=== PATIENT | female | born 1935 | race Caucasian/White ===

== ENCOUNTER → 2017-08-09 10:41 | Outpatient (CLI) | payer MEDICARE, SELFPAY ==
[2017-08-09 11:35] LABS: Vitamin B12 851 pg/mL (211-911)
[2017-08-09 11:37] LABS: Absolute Lymphocyte Count 1.16 X10^3/ul (0.83-4.51); Absolute Neutrophil Count 6.2 X10^3/uL (2.0-7.7); Basophil# 0.03 X10^3/uL; Basophil% 0.3 % (0-1); Eosinophil# 0.18 X10^3/uL; Hemoglobin 13.1 g/dl (12.0-15.0); Lymphocyte # 1.16 X10^3/ul (4.0); Mean Corp Hgb Conc 29.8 g/gl (32-36); Mean Corpuscular Hgb 28.1 pg (27.0-32.0); Mean Corpuscular Volume 94.4 fL (81-99); Mean Platelet Vol. 10.3 fl (6.2-12.0); Monocyte# 1.33 X10^3/uL; Monocyte% 14.9 % (0-10); Neutrophil # 6.23 X10^3/uL (2.7-7.7); Neutrophil % 69.6 % (47-70); POSITIVE COUNT NO; POSITIVE DIFFERENTIAL NO; POSITIVE MORPHOLOGY NO; Platelet Count 231 K/mm3 (150-450); RBC Distribution Width CV 13.3 % (11.6-14.6); RBC Distribution Width SD 45.9 fl (35.1-43.9); Red Blood Count 4.66 M/mm3 (4.2-5.4)
== END ==
PROVIDERS: Family Provider Internal Medicine; PCP Internal Medicine; Visit Provider Internal Medicine
DX: D51.8 Other vitamin B12 deficiency anemias (principal)
CPT/HCPCS: 82607; 85025

== ENCOUNTER → 2017-10-06 10:36 | Outpatient (CLI) | payer MEDICARE, SELFPAY ==
[2017-10-06 10:49] LABS: Absolute Lymphocyte Count 0.88 X10^3/ul (0.83-4.51); Absolute Neutrophil Count 5.6 X10^3/uL (2.0-7.7); Basophil# 0.02 X10^3/uL; Basophil% 0.3 % (0-1); Eosinophil# 0.13 X10^3/uL; Eosinophils% 1.8 % (0-5); Hematocrit 40.2 % (37-47); Hemoglobin 12.2 g/dl (12.0-15.0); Lymphocyte # 0.88 X10^3/ul (4.0); Lymphocyte % 11.9 % (19-41); Mean Corp Hgb Conc 30.3 g/gl (32-36); Mean Corpuscular Hgb 28.4 pg (27.0-32.0); Mean Corpuscular Volume 93.5 fL (81-99); Mean Platelet Vol. 10.2 fl (6.2-12.0); Monocyte% 10.8 % (0-10); Neutrophil # 5.56 X10^3/uL (2.7-7.7); Neutrophil % 74.8 % (47-70); Platelet Count 249 K/mm3 (150-450); RBC Distribution Width CV 13.3 % (11.6-14.6); RBC Distribution Width SD 45.4 fl (35.1-43.9); White Blood Count 7.4 K/mm3 (4.4-11.0)
[2017-10-06 11:14] LABS: POSITIVE COUNT NO; POSITIVE DIFFERENTIAL NO; POSITIVE MORPHOLOGY NO
[2017-10-06 11:20] LABS: ALB/GLOB Ratio 0.9 RATIO (0.9-2.4); AST(SGOT) 30 U/L (15-37); Alanine Aminotransfer ALT/SGPT 24 U/L (13-56); Albumin, Serum 3.3 g/dL (3.2-5.0); Alkaline Phosphatase 69 U/L (45-117); Anion Gap 3 (5-15); BUN 17 mg/dL (7-18); BUN/Creat Ratio 22.5 RATIO (10-20); Calcium,Total 8.8 mg/dL (8.5-10.1); Chloride 92 mmol/L (98-107); Creatinine, Serum 0.75 mg/dL (0.55-1.02); EST Glomerular Filtration Rate 78 mL/min (>60); Est Glom Filt Rate - Afr Amer 95 mL/min (>60); Ferritin 277 ng/mL (8-252); Globulin 3.6 g/dL (2.2-4.2); Glucose 110 mg/dL (74-106); Iron 61 ug/dL (50-170); Iron Binding Capacity,Total 323 ug/dL (250-450); PERCENT IRON SATURATION 18.9 % (15.0-55.0); Potassium 3.3 mmol/L (3.5-5.1); Protein, Total 6.9 g/dL (6.4-8.2); Sodium Level 137 mmol/L (136-145)
== END ==
PROVIDERS: Visit Provider Internal Medicine Medical Oncology
DX: D46.9 Myelodysplastic syndrome, unspecified (principal); D53.9 Nutritional anemia, unspecified
CPT/HCPCS: 80053; 82728; 83540; 83550; 85025

== ENCOUNTER → 2017-10-25 11:43 | Outpatient (CLI) | payer MEDICARE, SELFPAY ==
[2017-10-25 12:46] LABS: Mucous, Urine 0 SEEN /hpf (<or=2+); Red Blood Cells-Urine 0 SEEN /hpf (0-5)
[2017-10-25 12:58] LABS: Absolute Lymphocyte Count 1.19 X10^3/ul (0.83-4.51); Basophil# 0.04 X10^3/uL; Basophil% 0.4 % (0-1); Eosinophil# 0.13 X10^3/uL; Eosinophils% 1.4 % (0-5); Hematocrit 44.2 % (37-47); Hemoglobin 13.3 g/dl (12.0-15.0); Lymphocyte # 1.19 X10^3/ul (4.0); Lymphocyte % 12.4 % (19-41); Mean Corp Hgb Conc 30.1 g/gl (32-36); Mean Corpuscular Hgb 28.9 pg (27.0-32.0); Mean Corpuscular Volume 96.1 fL (81-99); Mean Platelet Vol. 10.8 fl (6.2-12.0); Monocyte# 1.22 X10^3/uL; Monocyte% 12.7 % (0-10); Neutrophil # 6.98 X10^3/uL (2.7-7.7); Neutrophil % 72.5 % (47-70); POSITIVE COUNT NO; POSITIVE DIFFERENTIAL NO; POSITIVE MORPHOLOGY NO; Platelet Count 229 K/mm3 (150-450); RBC Distribution Width CV 13.3 % (11.6-14.6); RBC Distribution Width SD 45.6 fl (35.1-43.9); White Blood Count 9.6 K/mm3 (4.4-11.0)
[2017-10-25 13:06] LABS: Color, Urine Yellow (Yellow); Glucose, Dipstick Normal (Normal); Ketone-Dipstick Negative (Negative); Leukocyte Esterase-Dipstick 25 /ul (Negative); Nitrite-Dipstick Negative (Negative); Occult Blood-Urine Negative /ul (Negative); Protein-Dipstick Negative (Negative); Specific Gravity, Urine 1.015 (1.002-1.030); Urine Bilirubin Dipstick Negative (Negative); Urine Clarity Clear (Clear); Urine Urobilinogen Normal (Normal)
[2017-10-25 13:19] LABS: Microalbumin,Random Urine 27.3 mg/L (NO RANGE EST.); Microalbumin:Creatinine Ratio 38.8 mg/g CRE (<30 mg/g CRE); Vitamin B12 627 pg/mL (211-911)
[2017-10-25 13:20] LABS: AST(SGOT) 30 U/L (15-37); Alanine Aminotransfer ALT/SGPT 25 U/L (13-56); Albumin, Serum 3.5 g/dL (3.2-5.0); Alkaline Phosphatase 68 U/L (45-117); Anion Gap 5 (5-15); BUN 20 mg/dL (7-18); BUN/Creat Ratio 26.5 RATIO (10-20); Calcium,Total 8.9 mg/dL (8.5-10.1); Chloride 90 mmol/L (98-107); Cholesterol 145 mg/dL (200); Creatinine, Serum 0.76 mg/dL (0.55-1.02); EST Glomerular Filtration Rate 78 mL/min (>60); Est Glom Filt Rate - Afr Amer 95 mL/min (>60); Globulin 3.6 g/dL (2.2-4.2); Glucose 88 mg/dL (74-106); High Density Lipoprotein 72 mg/dL; Potassium 3.2 mmol/L (3.5-5.1); Protein, Total 7.1 g/dL (6.4-8.2); Sodium Level 138 mmol/L (136-145); Thyroid Stim Hormone (TSH) 2.95 uIU/mL (0.358-3.74); Triglycerides 60 mg/dL; Very Low Density Lipoprotein 12 mg/dL (5-40)
[2017-10-25 13:24] LABS: Bacteria 1+ /hpf (None Seen); Hyaline Cast 0-5 SEEN /lpf (0-5); Squamous Epithelial Cells - UA 0-5 SEEN /hpf (5-10); White Blood Cells 0-5 SEEN /hpf (0-5)
== END ==
PROVIDERS: Family Provider Internal Medicine; PCP Internal Medicine; Visit Provider Internal Medicine
DX: D51.8 Other vitamin B12 deficiency anemias (principal); E55.9 Vitamin D deficiency, unspecified; E78.00 Pure hypercholesterolemia, unspecified; R00.1 Bradycardia, unspecified; I12.9 Hypertensive chronic kidney disease with stage 1 through stage 4 chronic kidney disease, or unspecified chronic kidney disease; N18.9 Chronic kidney disease, unspecified
CPT/HCPCS: 80053; 80061; 81001; 82043; 82570; 82607; 84443; 85025

== ENCOUNTER → 2018-01-03 09:45 | Outpatient (CLI) | payer MEDICARE, SELFPAY ==
[2018-01-03 10:55] LABS: Absolute Lymphocyte Count 0.86 X10^3/ul (0.83-4.51); Basophil# 0.03 X10^3/uL; Basophil% 0.4 % (0-1); Eosinophil# 0.13 X10^3/uL; Eosinophils% 1.6 % (0-5); Hematocrit 44.3 % (37-47); Hemoglobin 13.1 g/dl (12.0-15.0); Lymphocyte # 0.86 X10^3/ul (4.0); Lymphocyte % 10.8 % (19-41); Mean Corp Hgb Conc 29.6 g/gl (32-36); Mean Corpuscular Hgb 28.7 pg (27.0-32.0); Mean Corpuscular Volume 96.9 fL (81-99); Mean Platelet Vol. 10.6 fl (6.2-12.0); Monocyte% 11.3 % (0-10); Neutrophil # 6.04 X10^3/uL (2.7-7.7); Neutrophil % 75.8 % (47-70); Platelet Count 222 K/mm3 (150-450); RBC Distribution Width CV 13.2 % (11.6-14.6); RBC Distribution Width SD 46.8 fl (35.1-43.9); Red Blood Count 4.57 M/mm3 (4.2-5.4)
[2018-01-03 11:03] LABS: POSITIVE COUNT NO; POSITIVE DIFFERENTIAL NO; POSITIVE MORPHOLOGY NO
[2018-01-03 11:06] LABS: ALB/GLOB Ratio 0.9 RATIO (0.9-2.4); AST(SGOT) 28 U/L (15-37); Alanine Aminotransfer ALT/SGPT 21 U/L (13-56); Albumin, Serum 3.4 g/dL (3.2-5.0); Alkaline Phosphatase 74 U/L (45-117); Anion Gap 6 (5-15); BUN 25 mg/dL (7-18); BUN/Creat Ratio 34.2 RATIO (10-20); Calcium,Total 9.2 mg/dL (8.5-10.1); Chloride 92 mmol/L (98-107); Creatinine, Serum 0.73 mg/dL (0.55-1.02); EST Glomerular Filtration Rate 81 mL/min (>60); Est Glom Filt Rate - Afr Amer 98 mL/min (>60); Ferritin 261 ng/mL (8-252); Globulin 3.9 g/dL (2.2-4.2); Glucose 136 mg/dL (74-106); Iron 63 ug/dL (50-170); Iron Binding Capacity,Total 329 ug/dL (250-450); PERCENT IRON SATURATION 19.1 % (15.0-55.0); Potassium 3.2 mmol/L (3.5-5.1); Protein, Total 7.3 g/dL (6.4-8.2); Sodium Level 140 mmol/L (136-145)
== END ==
PROVIDERS: Family Provider Internal Medicine; PCP Internal Medicine; Visit Provider Internal Medicine Medical Oncology
DX: D46.9 Myelodysplastic syndrome, unspecified (principal); D50.9 Iron deficiency anemia, unspecified
CPT/HCPCS: 80053; 82728; 83540; 83550; 85025

== ENCOUNTER → 2018-01-11 12:43 | Outpatient (CLI) | payer MEDICARE, SELFPAY ==
[2018-01-11 12:45] VITALS: PULSE 63; PULSE 67; PULSE 68; PULSE 72; PULSE 94; O2SAT 4; O2SAT 83; O2SAT 87; O2SAT 89; O2SAT 93; O2SAT 96
--- NOTE | 2018-01-11 13:26 | CPS ---
Pt on 3.5L NC at home, DME is [facility]. Pt trying to get switched to [facility] to be able to do a portable concentrator. Pt currently on pulse dose, recommended pt to be on continuous flow of Oxygen while exerting herself as pt gets short of breath and desat's.
--- NOTE | 2018-01-12 08:12 | WT_ITS ---
PSN 6 Minute Walk Test - 6 Minute Walk Test 6 Minute Walk Test: 6 Minute Walk Test PSN:6-Minute Walk Test Start: 01/11/18 13: 24 Freq: Status: Active Protocol: [id number] Document 01/11/18 12:45 HG (Rec: 01/11/18 13:29 HG [id number]) 6 Minute Walk Test Date Performed 01/11/18 Time Performed 12:45 Height 5 ft 2 in Weight: 56.245 kg Weight in Pounds 124.[address]: Aida Lindo Assistive device used: Walker Pre-test Oxygen Delivery Method Room Air Pulse Ox (%) 87 Pulse Rate (60-100 beats/min) 63 Dyspnea Kelsey Scale (0-10) 3 Exertion Kelsey Scale (6-20) 14 1st minute Oxygen Flow Rate (L/min) (L/min) 2 Oxygen Delivery Method Nasal Cannula Pulse Ox (%) 87 Pulse Rate (60-100 beats/min) 67 2nd minute Oxygen Flow Rate (L/min) (L/min) 3 Oxygen Delivery Method Nasal Cannula Pulse Ox (%) 89 Pulse Rate (60-100 beats/min) 72 Number of Rests Taken 1 Reported Symptoms Increased Work of Breathing 3rd minute Oxygen Flow Rate (L/min) (L/min) 3 Oxygen Delivery Method Nasal Cannula Pulse Ox (%) 89 Pulse Rate (60-100 beats/min) 67 Number of Rests Taken 1 Reported Symptoms Increased Work of Breathing 4th minute Oxygen Flow Rate (L/min) (L/min) 3 Oxygen Delivery Method Nasal Cannula Pulse Ox (%) 83 Pulse Rate (60-100 beats/min) 72 Number of Rests Taken 1 Reported Symptoms Increased Work of Breathing 5th minute Oxygen Flow Rate (L/min) (L/min) 4 Oxygen Delivery Method Nasal Cannula Pulse Ox (%) 93 Pulse Rate (60-100 beats/min) 68 6th minute Oxygen Delivery Method Nasal Cannula Pulse Ox (%) 4 Pulse Rate (60-100 beats/min) 94 Dyspnea Kelsey Scale (0-10) 73 Post-test Oxygen Flow Rate (L/min) (L/min) 4 Oxygen Delivery Method Nasal Cannula Pulse Ox (%) 96 Pulse Rate (60-100 beats/min) 68 Dyspnea Kelsey Scale (0-10) 5 Exertion Kelsey Scale (6-20) 16 Full Laps Walked 4 Partial Lap, Number of Tiles Walked 0 Total Distance Walked (ft) 236 01/11/18 13:26 Cardiopulmonary Services by Zhanna Forbes Pt on 3.5L NC at home, DME is [facility]. Pt trying to get switched to [facility] to be able to do a portable concentrator. Pt currently on pulse dose, recommended pt to be on continuous flow of Oxygen while exerting herself as pt gets short of breath and desat's. Initialized on 01/11/18 13:26 - END OF NOTE - Interpretation Interpretation: The patient was noted to be 87% on room air. Patient was then placed on 2 L nasal cannula with improvement in saturations. The patient then ambulated 236 feet over the course of 6 minutes with the assistance of a walker requiring 4 L nasal cannula to maintain appropriate saturations. No significant tachycardia was noted. These findings are consistent with a respiratory limitation exercise tolerance. - Recommendations Recommendations: 2 L/min nasal cannula oxygen are noted at rest and up to 4 L/min would be required with exertion.
== END ==
PROVIDERS: Family Provider Internal Medicine; PCP Internal Medicine; Visit Provider Nurse Practitioner Acute Care
DX: J44.9 Chronic obstructive pulmonary disease, unspecified (principal)
CPT/HCPCS: 94618

== ENCOUNTER → 2018-03-15 12:51 | Outpatient (CLI) | payer MEDICARE, SELFPAY ==
--- NOTE | 2018-03-15 12:58 | BD_ITS ---
STUDY: DUAL ENERGY X-RAY ABSORPTIOMETRY / DXA REASON FOR EXAM: Female, 82 years old. Early menopause. Loss of height. TECHNIQUE: Bone Mineral Density (BMD) measurements of lumbar spine and left hip were obtained. COMPARISON: Comparison is made with prior study dated September 27, 2013. FINDINGS: Lumbar Spine (L1-L4): g/cm2 (0.801) / T-score (-3.0) / Z-score (-1.2) Findings are suggestive of osteoporosis with a high fracture risk. Left Femur Total: g/cm2 (0.570) / T-score (-3.5) / Z-score (-1.4) Left Femoral Neck: g/cm2 (0.635) / T-score (-2.9) / Z-score (0.9) The T-Scores on the most recent prior examination were: Lumbar Spine (L1-L4): There has been worsening of bone density since the previous examination. Left Femur Total: which represents a worsening of 13.4%. BD/Dexa Bone Density Study IMPRESSION: The patient is considered osteoporotic as outlined below according to World Leif Organization (WHO) criteria with a high fracture risk. There has been worsening of bone density since the previous examination. Reference Information: The T-score is the number of standard deviations above or below the standard which is normal for young adults at their peak bone mineral density. The World Health Organization (WHO) interprets the T-scores as follows: Above -1 Normal bone density Between -1 and -2.5 Osteopenia Equal to / or below -2.5 Osteoporosis As a practical clinical guideline, osteopenia may be graded as follows: Mild -1 through -1.5 Moderate -1.6 through -2.0 Severe -2.1 through -2.4 The Z-score is the number of standard deviations above or below age-matched controls. A Z-score of less than -1.5 would be considered abnormal. References: 1. NIH Osteoporosis and Related Bone Diseases http://www.osteo.org 2. International Society for Clinical Densitometry http://www.iscd.org 3. National Osteoporosis Foundation http://www.nof.org Electronically Signed: Kit Castillo MD at 15:11 EST Tel [phone], Service support ,
== END ==
PROVIDERS: Family Provider Internal Medicine; PCP Internal Medicine
DX: M80.00XS Age-related osteoporosis with current pathological fracture, unspecified site, sequela (principal); Z78.0 Asymptomatic menopausal state
CPT/HCPCS: 77080

== ENCOUNTER → 2018-04-06 10:59 | Outpatient (CLI) | payer MEDICARE, SELFPAY ==
[2018-04-06 11:11] LABS: Absolute Lymphocyte Count 0.87 X10^3/ul (0.83-4.51); Absolute Neutrophil Count 5.7 X10^3/uL (2.0-7.7); Basophil# 0.02 X10^3/uL; Basophil% 0.3 % (0-1); Eosinophil# 0.09 X10^3/uL; Eosinophils% 1.2 % (0-5); Hematocrit 41.6 % (37-47); Hemoglobin 12.5 g/dl (12.0-15.0); Lymphocyte # 0.87 X10^3/ul (4.0); Lymphocyte % 11.2 % (19-41); Mean Corpuscular Hgb 28.7 pg (27.0-32.0); Mean Corpuscular Volume 95.4 fL (81-99); Mean Platelet Vol. 10.3 fl (6.2-12.0); Monocyte# 1.11 X10^3/uL; Monocyte% 14.3 % (0-10); Neutrophil # 5.68 X10^3/uL (2.7-7.7); Neutrophil % 72.9 % (47-70); POSITIVE COUNT NO; POSITIVE DIFFERENTIAL NO; POSITIVE MORPHOLOGY NO; Platelet Count 214 K/mm3 (150-450); RBC Distribution Width CV 12.8 % (11.6-14.6); RBC Distribution Width SD 44.8 fl (35.1-43.9); Red Blood Count 4.36 M/mm3 (4.2-5.4); White Blood Count 7.8 K/mm3 (4.4-11.0)
[2018-04-06 11:12] LABS: Erythrocyte Sedimentation Rate 6 mm/hr (0-30)
[2018-04-06 11:54] LABS: AST(SGOT) 25 U/L (15-37); Alanine Aminotransfer ALT/SGPT 28 U/L (13-56); Albumin, Serum 3.6 g/dL (3.2-5.0); Alkaline Phosphatase 76 U/L (45-117); Anion Gap 6 (5-15); BUN 25 mg/dL (7-18); BUN/Creat Ratio 36.9 RATIO (10-20); CRP < 2.90 mg/L (0.0-3.0); Calcium,Total 9.1 mg/dL (8.5-10.1); Chloride 87 mmol/L (98-107); Creatinine, Serum 0.68 mg/dL (0.55-1.02); EST Glomerular Filtration Rate 88 mL/min (>60); Est Glom Filt Rate - Afr Amer 107 mL/min (>60); Globulin 3.6 g/dL (2.2-4.2); Glucose 82 mg/dL (74-106); Potassium 3.6 mmol/L (3.5-5.1); Protein, Total 7.2 g/dL (6.4-8.2); Sodium Level 137 mmol/L (136-145)
[2018-04-07 07:42] LABS: Complement C3 129 mg/dL (82-167)
[2018-04-08 12:38] LABS: Anti-dsDNA Ab 7 IU/mL (0-9)
--- OUTSIDE RECORDS SUMMARY | 2018-05-23 13:27 | XMS RPT_ITS | Continuity of Care Document ---
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 presents to the [facility] today for a follow-up visit. She is a lady with a history of coronary artery disease status post previous angioplasty and stenting of her right coronary artery in 2013. She was also noted to have pap illary muscle rupture and developed severe mitral regurgitation for which she needed to be intubated placed on intra-aortic balloon pump and Levophed. She has done well since then denying any chest pain or shortness of breath other than her baseline COPD. Unfortunately she continues to use tobacco products. She has not had any dizziness no near syncope or syncope. She is been compliant with all her me dications she does have minimal pitting edema. Her physical exam today demonstrates clear lung kevin regular rate and rhythm and mild pitting edema. 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: No Accompanied b y: none Is patient in pain?: No Allergies alendronate sodium [From Fosamax] Adverse Reaction (Severe, Verified 01/14/18 09:12) gastroenteritis sulfamethoxazole [From Bactrim] Adverse Reaction (Severe, Verified 01/14/18 09:12) thrush trimethoprim [From Bactrim] Adverse Reaction (Severe, Verified 01/14/18 09:12) thrush Medications Hydroxychloroquine [Plaquenil] 300 mg PO DAILY 07/06/15 [History Conf irmed 02/01/18] Nitroglycerin [Nitrostat] 0.4 mg SUBLINGUAL Q5M PRN 07/06/15 [History Confirmed 02/01/18] Omeprazole [Prilosec] 20 mg PO DAILY 07/06/15 [History Confirmed 02/01/18] Oxycodone HCl/Acetami nophen [Percocet 5-325] 1 tab PO BID 07/06/15 [History Confirmed 02/01/18] Pregabalin [Lyrica] 75 mg PO TID 07/06/15 [History Confirmed 02/01/18] Aspirin [Aspirin, Baby] 81 mg PO DAILY@0800 08/23/15 [Hi story Confirmed 02/01/18] Oxygen, Home [Home Oxygen] 3 lpm NASAL CONT 12/01/15 [History Confirmed 02/01/18] Ascorbic Acid [Vitamin C] 500 mg PO BID #60 tab 12/04/15 [Rx Confirmed 02/01/18] amlodipine 2. 5 mg tablet 2.5 mg PO DAILY #30 tab 12/04/15 [Rx Confirmed 02/01/18] cholecalciferol (vitamin D3) 4,000 unit capsule 4,000 unit PO QDAY 07/01/17 [History Confirmed 02/01/18] polysaccharide iron complex 150 mg iron capsule 150 mg PO TID cap 07/05/17 [History Confirmed 02/01/18] aclidinium bromide 400 mcg/actuation breath activated powder inhaler 1 inh INHALATION BID #1 ea 07/14/17 [Rx Confirmed 8] albuterol sulfate HFA 90 mcg/actuation aerosol inhaler 2 puff INHALATION Q4H PRN #18 g 07/14/17 [Rx Confirmed 02/01/18] budesonide-formoterol HFA 160 mcg- 4.5 mcg/actuation aerosol inhaler 2 puff INHA LATION BID #10.2 g 07/14/17 [Rx Confirmed 02/01/18] furosemide 40 mg tablet 40 mg PO BID #60 tab 09/09/17 [Rx Confirmed 02/01/18] Cyanocobalamin [Vitamin B12] 1,000 mcg IM Q30D 10/14/17 [History Confirm ed 02/01/18] atorvastatin 80 mg tablet 80 mg PO QHS #90 tab 01/26/18 [Rx Confirmed 02/01/18] carvedilol 3.125 mg tablet 3.125 mg PO BID #60 tab 01/26/18 [Rx Confirmed 02/01/18] potassium chloride ER 20 mEq tablet,extended release(part/cryst) 20 meq PO DAILY tab 02/01/18 [History Confirmed 02/01/18] [facility] Medical History Long-term use of high-risk medic ation (Chronic) 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) PND (post- nasal drip) (Chronic) Chronic obstructive pulmonary disease (Chronic) Coronary atherosclerosis of [place] coronary artery (C hronic) HLD (hyperlipidemia) (Chronic) HTN (hypertension) (Chronic) Personal history of transient ischemic attack (TIA) 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 (Chronic) CAD (coronary artery di sease) (Chronic) Hypokalemia (Acute) Metabolic alkalosis with respiratory acidosis (Chronic) On home O2 (Chronic) History of CO (myocardial infarction) (Chronic) Acute blood loss anemia (Acute) Heme + s tool (Acute) DVT (deep venous thrombosis) (Resolved) SLE (systemic lupus erythematosus) (Chronic) Iron (Fe) deficiency anemia (Chronic) Chronic respiratory failure with hypoxia and hypercapnia (Chronic) Diverticulosis (Chronic) Deficiency anemia (Acute) MDS (myelodysplastic syndrome) (Chronic) CHF (congestive heart failure) (Acute) Carpal tunnel syndrome (Acute) Edema (Acute) Family history of CVA (Ac chet) Fatigue (Acute) Hearing deficit (Acute) Heart disease (Acute) History of hysterectomy (Acute) IBS (irritable bowel syndrome) (Acute) Neuropathy (Acute) Osteopenia (Acute) Pneumonia (Acute) Shortnes s of breath (Acute) Stroke (Acute) Vision disturbance (Acute) Surgical History History of left cataract extraction (Resolved) History of carpal tunnel s urgery (Acute) History of foot surgery (Acute) History of coronary artery stent placement (Chronic) Family History Mother Crohn's disease Father Heart di sease Alzheimer disease CVA (cerebral vascular accident) Myocardial infarction Brother Seizures Other Family history of CVA Social History Smoking Status: Current every day smoker second hand exposur e: Yes alcohol intake: never substance use type: does not use caffeine: Yes what type of physical activity do you participate in: none ROS Const Const: Negative for fatigue, weakness, night sweats, excessive sweating, frequent falls, headache(s) or daytime sleepiness Eyes Eyes: Negative for loss of peripheral vision, transient loss of vision, blind spots, double vision or blurry vision ENT ENT: Ne gative for headache(s), dizziness, balance problems, Nosebleed/epistaxis, tongue swelling or lip swelling Cardio Chest Pain: No Palpitations: No Edema: None Muscle aches with walking: None Resp Respirat ory: Positive for SOB at rest and SOB with activity; negative for SOB orthopnea\SOB lying down, Cough or paroxysmal nocturnal dyspnea GI GI: Negative nausea, vomiting, heartburn, black,tarry stools or b right, red blood in stools : Negative for hematuria Musc Musc: Negative for balance problems, muscle aches/ myalgia, muscle weakness or joint pain Skin Skin: Negative non-healing lesions, unusual b ruising or rash Neuro Neuro: Negative for weakness, frequent falls, headache(s), double vision, dizziness, lightheadedness, orthostatic symptoms, blurry vision or lack of coordination Anibal Hematologic/L ymphatic: Negative for easy bruising or easy bleeding Endo Endo: Negative for fatigue, excessive sweating, cold intolerance, heat intolerance, increased thirst/drinking or hair loss Psych Psych: Negativ e for anxiety or depression Allergy Allergy/Immunology: Negative for throat swelling, Negative for tongue swelling, Negative for hives, Negative for rash, Negative for lip swelling Cardiology Exam Con st Appearance: cooperative, healthy appearing, well developed, well groomed and no acute distress Nutritional Appearance: well nourished and average body habitus Orientation: alert, awake and oriented x 3 Head Head: normal to inspection, normocephalic and atraumatic Ears: hearing grossly normal bilaterally and external ears normal Nose: external nose normal, nasal mucous membranes and turbinates normal , nares normal, septum normal, no nasal discharge Face and Sinus: face symmetric Mouth: oral mucosae normal, tongue normal, oropharynx normal and moist mucous membranes Teeth and gingiva: dentition norm al Throat: posterior oropharynx normal, tonsils normal and uvula midline Eyes General: appearance normal, both eyes and all related structures Eyelids: eyelids normal Conjunctivae: conjunctivae normal P upils: PERRL, normal by confrontation and accommodation normal EOM: EOM intact bilaterally Neck Neck: normal visual inspection, trachea midline and no JVD JVD: +5 Carotids: normal carotid upstroke and b ounding pulses Chest Chest inspection: normal inspection of the chest, symmetric chest movement and normal respiratory effort Auscultation: Bilateral: Clear to Auscultation Cardio Palpation: normal PMI Rate: regular rate Rhythm: regular rhythm Heart sounds: S1 normal, S2 normal and normal, physiologic split S2; negative rub, gallop or murmur GI GI: normal to inspection, soft, no hepatosplenomegaly and bowel sounds present Neuro General: alert, awake, oriented x3, no focal sensory deficit, gait normal and moves all extremities Skin Skin: no rashes or lesions noted Extremities Lower Extremity Edema: T race: Bilateral Musculoskel Musculoskeletal: No joint tenderness Psych Psychological: normal affect Assessment AND Plan 1. Presence of coronary angioplasty implant and graft Z95.5 PTCA AND stent to LC X AND first OM 09/28/13 Plan She is status post angioplasty and stenting. She has had no recent angina and the plan will be to continue her on the current medical therapy without as making any changes. 2. HTN (hypertension) I10 Plan Her blood pressure remains under excellent control on the current medical therapy she has not had any dizziness. You do remember that her last echocardiogram had demonstra meliton an ejection fraction of approximately 50%. She remains on the carvedilol and the diuretic, and the low-dose of the amlodipine. The latter can probably be discontinued. 3. HLD (hyperlipidemia) E78.5 Plan She does have a history of hyperlipidemia. She remain on her high intensity statin at this particular time. 4. Chronic obstructive pulmonary disease J44.9 With chronic respiratory failure on 3 L oxygen [id number] history smoking Plan She does have a history of mild pulmonary hypertension with chronic O2 dependency. Her last echocardiogram had demonstrated pulmonary pressures at approximatel y 44-46 mmHg. She will continue on her diuretics with no changes. Thank you for allowing me to participate in the care of your patient. Please don't hesitate to call if any issues arise Plan Detail Fo llow Up 6 Months (mmm) Coding Level of Care Code Off vis,est,level 3 Diagnoses Presence of coronary angioplasty implant and graft Z95.5 HTN (hypertension) I10 HLD (hyperlipidemia) E78.5 Chronic obstr uctive pulmonary disease J44.9 Coding Level of Care Code Off vis,est,level 3 Diagnoses Presence of coronary angioplasty implant and graft Z95.5 HTN (hypertension) I10 HLD (hyperlipidemia) E78.5 Chron ic obstructive pulmonary disease J44.9 02/01/18 1340 <Electronically signed by Kaden Barboza MD> Date Kaden Barboza MD Cosigner Signat ure: Date (if applicable) CC: Priya Jimenez DO 14-Jan-2018 Pulmonary Visit Report Result: Comments: See Note; NOTES: [facility] [address] [place] [address] OFFICE VISIT Date of Service: 01/14/18 MR#: [id number] Acct: [id number] Name: KILEY MARKS Rep #: [id number] : 1935 Provider: Aida Lindo Age/Sex: 82/F Location[facility] Status: Signed Assessment AND Plan 1. Stage 3 severe COPD by GOLD classification J44.9 Plan Does not appear to be an exacerbation of COPD today. No need for prednisone or antibiotic. Continue current maintenance medication. PFT prior to next previously scheduled routine follow-up. Contact the offi ce for any new or worsening symptoms. An acute visit and typically be arranged within 1-2 days. Influenza vaccination today. Keep previously scheduled routine follow-up. 2. Chronic respiratory failure with hypoxia J96.11 Plan Continue to utilize submental oxygen as needed to maintain saturations 8990%. Patient is using and benefiting from submental oxygen. No additional testing at this time. 3. Toba buyer tobacco head dependence F17.200 Plan Continue to encourage smoking cessation. Plan Detail Other Orders Orders: Other Medications Discontinued: Fluad 2017- 65yr up(PF)45 mcg(15 mcgx3)/0.5 mL int0.5 mL IM ONCE NS Z23 Adeola Jaime ramuscular syringe (flu vac 2017 [id number](PF)) Discontinued Reason: Office Medication has been Documented as given HPI F2F for POC: Chief Complaint: Shortness of breath HP I Comments Details: The patient presents the office today for routine follow-up on her severe COPD and chronic hypoxic respiratory failure. She is in a wheelchair, wearing nasal cannula oxygen. She has not been seen in the ED urgent care for respiratory illnesses since her last office visit. She has not required any prednisone or antibiotics for any respiratory problems. He continues compliance with her Symbicort twice daily. She reports rinsing her mouth out after each use. She denies any medication side effects such as sore throat or thrush. She is also compliant with Tudorza twice daily. She is currently utilizing her vital and rescue inhaler a few times per day. She is compliant with supplemental oxygen wearing 2 L at rest and 3 L/min on exertion. She continues to smoke one half pack of ci garettes daily, she is cutting back. She does report that she understands that she may not smoke while wearing oxygen as it is a hazard. 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: No Accompanied by: Self Is patient in pain?: Yes Woodrow cook alendronate sodium [From Fosamax] Adverse Reaction (Severe, Verified 01/14/18 09:12) gastroenteritis sulfamethoxazole [From Bactrim] Adverse Reaction (Severe, Verified 01/14/18 09:12) thrush trime thoprim [From Bactrim] Adverse Reaction (Severe, Verified 01/14/18 09:12) thrush Medications Atorvastatin Calcium [Lipitor] 80 mg PO QHS 07/06/15 [History Confirmed 01/14/18] Carvedilol [Coreg (Beta Hue)] 3.125 mg PO BID 07/06/15 [History Confirmed 01/14/18] Hydroxychloroquine [Plaquenil] 300 mg PO DAILY 07/06/15 [History Confirmed 01/14/18] Nitroglycerin [Nitrostat] 0.4 mg SUBLINGUAL Q5M PRN 0 07/06/15 [History Confirmed 01/14/18] Omeprazole [Prilosec] 20 mg PO DAILY 07/06/15 [History Confirmed 01/14/18] Oxycodone HCl/Acetaminophen [Percocet 5-325] 1 tab PO BID 07/06/15 [History Confirmed 12/26 05/13] Potassium Chloride [K-Dur] 20 meq PO BID 07/06/15 [History Confirmed 01/14/18] Pregabalin [Lyrica] 75 mg PO TID 07/06/15 [History Confirmed 01/14/18] Aspirin [Aspirin, Baby] 81 mg PO DAILY@0800 [History Confirmed 01/14/18] Oxygen, Home [Home Oxygen] 3 lpm NASAL CONT 12/01/15 [History Confirmed 01/14/18] Amlodipine [Norvasc] 2.5 mg PO DAILY #30 tab 12/04/15 [Rx Confirmed 01/14/18] Ascorb ic Acid [Vitamin C] 500 mg PO BID #60 tab 12/04/15 [Rx Confirmed 01/14/18] guaifenesin 400 mg tablet 400 mg PO Q4H PRN #30 tab 04/09/17 [Rx Confirmed 01/14/18] cholecalciferol (vitamin D3) 4,000 unit ca psule 4,000 unit PO QDAY 07/01/17 [History Confirmed 01/14/18] polysaccharide iron complex 150 mg iron capsule 150 mg PO TID cap 07/05/17 [History Confirmed 01/14/18] aclidinium bromide 400 mcg/actuatio n breath activated powder inhaler 1 inh INHALATION BID #1 ea 07/14/17 [Rx Confirmed 01/14/18] albuterol sulfate HFA 90 mcg/actuation aerosol inhaler 2 puff INHALATION Q4H PRN #18 g 07/14/17 [Rx Confirme d 01/14/18] budesonide-formoterol HFA 160 mcg-4.5 mcg/actuation aerosol inhaler 2 puff INHALATION BID #10.2 g 07/14/17 [Rx Confirmed 01/14/18] nicotine 21 mg/24 hr daily transdermal patch 21 mg TRANSDER MAL ONCE #30 patch 07/14/17 [Rx Confirmed 01/14/18] furosemide 40 mg tablet 40 mg PO BID #60 tab 09/09/17 [Rx Confirmed 01/14/18] Cyanocobalamin [Vitamin B12] 1,000 mcg IM Q30D 10/14/17 [History Confirm ed 01/14/18] PFSH Medical History Long-term use of high-risk medication (Chronic) 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) PND (post -nasal drip) (Chronic) Chronic obstructive pulmonary disease (Chronic) Coronary atherosclerosis of [place] coronary artery (Chronic) HLD (hyperlipidemia) (Chronic) HTN (hypertension) (Chronic) Personal h istory of transient ischemic attack (TIA) 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 (Chronic) CAD (coronary artery disease) (Chronic) Hypokalemia (Acute) Metabolic alkalosis with respiratory acid osis (Chronic) On home O2 (Chronic) History of CO (myocardial infarction) (Chronic) Acute blood loss anemia (Acute) Heme + stool (Acute) DVT (deep venous thrombosis) (Resolved) SLE (systemic lupus eryth ematosus) (Chronic) Iron (Fe) deficiency anemia (Chronic) Chronic respiratory failure with hypoxia and hypercapnia (Chronic) Diverticulosis (Chronic) Deficiency anemia (Acute) MDS (myelodysplastic syndr ome) (Chronic) CHF (congestive heart failure) (Acute) Carpal tunnel syndrome (Acute) Edema (Acute) Family history of CVA (Acute) Fatigue (Acute) Hearing deficit (Acute) Heart disease (Acute) IBS (irrita ble bowel syndrome) (Acute) Neuropathy (Acute) Osteopenia (Acute) Pneumonia (Acute) Shortness of breath (Acute) Stroke (Acute) Vision disturbance (Acute) Surgical History History of left cataract extraction (Resolved) History of carpal tunnel surgery (Acute) History of foot surgery (Acute) History of hysterectomy (Acute) History of coronary clair ry stent placement (Chronic) Family History Mother Crohn's disease Father Heart disease Alzheimer disease CVA (cerebral vascular accident) Myocard ial infarction Brother Seizures Other Family history of CVA Social History Smoking Status: Current every day smoker second hand exposure: Yes alcohol intake: never substance use type: does not use caffeine: Yes what type of physical activity do you participate in: none FEV1% FEV1%: 38 Review of Systems Const CONSTITUTIONAL: Positive fatigue; negative anorexia, body ache, chills, daytime s leepiness, fever(s), night sweats, oral thrush, stops breathing during sleep, weight loss, sleeping in chair, weight loss, weight gain, frequent colds, seasonal allergies, other, headache(s) or orthopne a EETM Ear Nose Throat Mouth: Positive hearing normal; negative hard of hearing, hoarseness, dry mouth in morning, change in vision, itchy eyes, eye pain, swallowing Difficulty, ear pain, nose bleed, he adache(s), mouth pain, nasal congestion, nasal discharge, post nasal drip, sinus pain, sinus pressure, sore throat or other Cardio Cardiovascular: Negative chest pain, chest pain at rest, chest pain wit h activity, irregular heart rhythm, edema, shortness of breath when lying down, palpitations, murmur or other Resp Respiratory: Positive as per HPI and shortness of breath; negative pain with cough, whe ezing, chest congestion, cough, chest tightness, pain on inspiration, inhalers, increase use of rescue inhalers, snoring, apnea or other Gastro Gastrointestional: Negative bloody stools, change in appet ite, difficulty swallowing, reflux, hematemesis, melena stool, loose stool, constipation or other Genitourinary: Negative blood in urine, nocturia, pain with urination or other Musc Musculoskeletal: Negative body pain, back pain, neck pain or other Skin/Breast Skin/Breast: Negative dry skin, itching, rash, unusual bruising, breast lump or other Neuro Neurological: Negative restless legs, confusion, weakness or other Psych Psychocological: Negative abnormal sleep pattern, anxiety, thoughts of hurting self/others, hopelessness or other Lymph Lymphatic: Negative easy bleeding, easy bruising, swollen lymph nodes or other Exam Const Constitutional: Positive conversant, cooperative, in no acute respiratory distress, well developed, well nourished, good hygiene, frail appearing, wearing supplemental oxygen and dyspenic Head Head: Positive normocephalic and atraumatic; negative cyanosis of lips/distal nose Eyes Eye: Positive clear conjunctiva; negative nystagmus or scleral abnormality Ears Ear: Pos itive hearing normal and external ears normal; negative hard of hearing Nose Nose: Positive external nose normal and no nasal discharge; negative epistaxis Mouth Mouth: Positive oral mucosae normal, den tures, no lesions and posterior oropharynx is adequate; negative post nasal drip, malodorous breath or oral thrush present Mallampati Score: I: Mallampati Score Neck Neck: Positive normal visual inspec tion, full ROM and trachea midline; negative lymphadenopathy, JVD or tender Chest Wall Chest: Positive symmetric chest movement and increased A/P diameter Resp lung sounds: Positive diminished, prolonge d expiratory time and normal chronic state of increased work of breathing; negative wheezes, rhonchi, rales, dullness to percussion or wheeze present on forced exhalation Cardio Cardiac: Positive regula r rate, regular rhythm, S1 normal and S2 normal; negative murmur GI GI: Positive normal to inspection; negative distended Genitourinary: Positive deferred Musc Musculoskeletal: Positive ROM normal an d in a wheelchair; negative kyphosis or scoliosis Skin Pulmonary Skin Exam: Positive intact; negative rash Pulses Pulse: Yes pulses normal x4 extremities Extremities Extremities: Yes capillary refill no rmal, Yes clubbing, No cyanosis, No edema Neuro Neurologic: Yes conversant, Yes no focal neuro deficits, Yes normal concentration, Yes understands questions, Yes cooperative, Yes normal cognition, Yes n ormal coordination Lymph Lymphatic: No lymphadenopathy, No tenderness, No cervical adenopathy Psych Appearance: Positive grossly normal, eye contact and well kempt Mental Status: Positive mental status grossly normal Mood: Positive congruent mood Affect: Positive normal affect Office Meds Fluad 65yr up(PF)45 mcg(15 mcgx3)/0.5 mL intramuscular syringe Performing Provider: BRENTON Renee Administered by: Adeola Jaime on 01/14/18 13:40 Dose Route Admin Location Lot Number Expiration Date NDC [employer] Thresher 0.5 mL IM Lt Deltoid [id number] 08/23/18 61503-968-38 SEQIRUS Coding Level of Ca re Code Off vis,est,level 3 Diagnoses Stage 3 severe COPD by GOLD classification J44.9 Chronic respiratory failure with hypoxia J96.11 Tobacco dependence F17.200 01/14/18 1352 <Electronicall y signed by Aida PENNINGTON> Date Aida PENNINGTON Cosigner Signature: Date (if applicable) CC: Priya Jimenez DO 12-Jan-2018 Oncology Visit Report Result: Comments: See Note; NOTES: [facility] [address] [place], [place] [address] [address] OFFICE VISIT Date of Service: 01/12/18 1316 MR#: [id number] Acct: [id number] Name: KILEY DREW Rep #: [id number] : 1935 From: Ronan Donahue MD Age/Sex: 82/F Location: OMD Status: Signed Subjective - Date of Service Date of Service:: 01/12/18 - Chief Complaint F/u for MDS. - History of Present Illness Ms. Kiley Drew is a pleasant 82y.o.woman was found to have severe anemia in November 2015. 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 Flow cytometry revealed no significant immunophenotypic abnormality, normal female karyotype obser abe. Blasts 2%. She is currently on observation, comes in for follow up. She feels well, gets bruises on the forearms on and off.. - Past Medical/Social History Past Medical History Past Medical Histo ry: Anemia,Blood transfusion,Cataracts,Chronic bronchitis,Congestive heart failure,COPD,Hearing problems,Heart disease,Hyperlipidemia, Hypertension,Osteopenia,Pneumonia,Stroke,Vision problems,Neuropathy ,IBS,Carpal tunnel syndrome, Fatigue,Diarrhea,Peripheral neuropathy Other Past Medical History: LUPOS SLE Cancer: Skin cancer Past Surgical History Surgical: Carpal tunnel,Hysterectomy Other Surgical History: FOOT SURGERY Family History Paternal Past Medical History: Alzheimer's disease,Heart disease Maternal Past Medical History: Crohn's disease Social History Smoking Status Current every day kimberly ghosh Review of Systems Constitutional:: Reports: Sweats. Denies: Fever Cardiovascular:: Denies: Chest pain, Palpitations, Dyspnea on exertion, Orthopnea, PND, Shortness of breath Respiratory: Report s: - - on home O2 Gastrointestinal:: Denies: Reflux Genitourinary: Denies: Dysuria, Hematuria, 15, Flank pain Musculoskeletal:: Denies: Back pain, Myalgia, Arthralgia Skin: Reports: - - bruises of forea rm on and off.. Denies: Rash, Skin Changes, Wounds Neurological:: Denies: Headache, Dizziness, Visual changes, Tinnitus, Hearing loss Psychiatric: Denies: Anxiety, Depression, Homicidal Ideations, Suici tanner Ideations Vital Signs Height 5 ft 2 in Weight: 56.245 kg Weight in Pounds 124.0 lbs Pulse Ox 97 - Physical Exam General: Alert, Oriented x3, No apparent distress HEENT: Atraumatic, PERRLA, EOMI , Normocephalic Oropharynx:: Dry mucosa Neck:: Supple, Trachea midline. Negative for: JVD, bilateral Cardiac:: Regular rate, Regular rhythm, Normal S1, Normal S2. Negative for: Murmur Lungs: Clear to au scultation, Excusion symmetrical. Negative for: Rhonchi, Wheezes Abdomen:: Bowel sounds x 4, Soft, Non-tender, Non-distended. Negative for: Hepatosplenomegaly Extremities:: - - R leg shorter than L leg. . Negative for: Cyanosis, Edema Neurological: Neuro grossly intact Skin:: Lesions - few small bruises R and L forearm.. Negative for: Rash, Petechiae, Ecchymosis Psychiatric:: Appropriate affect, Euthym ic Lymphatics:: Negative for: Cervical lymphadenopathy, Supraclavicular lymphadenopathy, Axillary lymphadenopathy Laboratory Data: Laboratory Tests WBC 7.4 8.0 Hgb 12.2 13.1 Assessment and Plan S-RARS, Hgb is about 12. IPSS-1. Clinically stable, asymptomatic. Hypokalemia on Potassium supplements at home. Skin Fragility leading to bruises. Plan is to continue observation. RTC 3 months with CB C/CMP. Medications: Prescriptions This Visit Medication Instructions Recorded Cyanocobalamin [Vitamin B12] 1,000 mcg IM Q30D 10/14/17 Primary Care Provider: Referring Provider: - Problem List (1) M DS (myelodysplastic syndrome) Status: Chronic Code Visit Office Visits / Consults: 99124 OV L3 Est 01/12/18 1328 <Electronically signed by Ronan Donahue MD> Date Ronan Donahue MD Cosigner Signature: Date (if applicable) CC: 12-Jan-2018 6 Minute Walk Test Result: Comments: See Note; NOTES: [facility] Pulmonary Services/Neurology [address] [place] [address] MR#: [id number] Acct: [id number] Name: KILEY DREW Rep #: [id number] : 82 From: Sincere Castillo MD Referring Dr: Aida Lindo NP Date: Ordering Dr: Sex: F C Location: PSN PSN 6 Minute Walk Test - 6 Minute Walk Test 6 Minute Walk Test: 6 Minute Walk Test PSN :6-Minute Walk Test Start: 01/11/18 13:24 Freq: Status: Active Protocol: [id number] Document 01/11/18 12:45 HG (Rec: 01/11/18 13:29 HG [id number]) 6 Minute Walk Test Date Performed 01/11/18 Time Performed 1 2:45 Height 5 ft 2 in Weight: 56.245 kg Weight in Pounds 124.[address]: Aida Lindo Assistive device used: Walker Pre-test Oxygen Delivery Method Room Air Pulse Ox (%) 87 Pulse Rate (60-100 beats/min) 63 Dyspnea Kelsey Scale (0-10) 3 Exertion Kelsey Scale (6-20) 14 1st minute Oxygen Flow Rate (L/min) (L/min) 2 Oxygen Delivery Method Nasal Cannula Pulse Ox (%) 87 Pulse Rate (60-100 beats/min) 67 2nd minute Oxygen Flow Rate (L/min) (L/min) 3 Oxygen Delivery Method Nasal Cannula Pulse Ox (%) 89 Pulse Rate (60-100 beats/min) 72 Number of Rests Taken 1 Reported Symptoms Increased Work of Breathi ng 3rd minute Oxygen Flow Rate (L/min) (L/min) 3 Oxygen Delivery Method Nasal Cannula Pulse Ox (%) 89 Pulse Rate (60-100 beats/min) 67 Number of Rests Taken 1 Reported Symptoms Increased Work of Breathi ng 4th minute Oxygen Flow Rate (L/min) (L/min) 3 Oxygen Delivery Method Nasal Cannula Pulse Ox (%) 83 Pulse Rate (60-100 beats/min) 72 Number of Rests Taken 1 Reported Symptoms Increased Work of Breathi ng 5th minute Oxygen Flow Rate (L/min) (L/min) 4 Oxygen Delivery Method Nasal Cannula Pulse Ox (%) 93 Pulse Rate (60-100 beats/min) 68 6th minute Oxygen Delivery Method Nasal Cannula Pulse Ox (%) 4 Puls e Rate (60-100 beats/min) 94 Dyspnea Kelsey Scale (0-10) 73 Post-test Oxygen Flow Rate (L/min) (L/min) 4 Oxygen Delivery Method Nasal Cannula Pulse Ox (%) 96 Pulse Rate (60-100 beats/min) 68 Dyspnea Kelsey Scale (0-10) 5 Exertion Kelsey Scale (6-20) 16 Full Laps Walked 4 Partial Lap, Number of Tiles Walked 0 Total Distance Walked (ft) 236 01/11/18 13:26 Cardiopulmonary Services by Zhanna Forbes Pt on 3.5L NC at home, DME is [facility]. Pt trying to get switched to [facility] to be able to do a portable concentrator. Pt currently on pulse dose, recommended pt to be on continuous flow of Oxygen while ex erting herself as pt gets short of breath and desat's. Initialized on 01/11/18 13:26 - END OF NOTE - Interpretation Interpreta tion: The patient was noted to be 87% on room air. Patient was then placed on 2 L nasal cannula with improvement in saturations. The patient then ambulated 236 feet over the course of 6 minutes with th e assistance of a walker requiring 4 L nasal cannula to maintain appropriate saturations. No significant tachycardia was noted. These findings are consistent with a respiratory limitation exercise preston ance. - Recommendations Recommendations: 2 L/min nasal cannula oxygen are noted at rest and up to 4 L/min would be required with exertion. 01/12/18811 <Electronically signed by Sincere garcia MD> Date Sincere Castillo MD CC: Date Dictated: 01/12/18809 Date Transcribed: 01/12/18809 Environmental Science Professor: Sincere Castillo Signed 11-Nov-2017 Pulmonary Visit Report Result: Comments: See Note; NOTES: [facility] [address] [place] [address] OFFICE VISIT Date of Service: 11/11/17 MR#: [id number] Acct: [id number] Name: KILEY MARKS Rep #: [id number] : 1935 Provider: Sincere Castillo MD Age/Sex: 82/F Location[facility] Status: Signed Assessment AND Plan Problems 1. Stage 3 severe COPD by GOLD classification J44.9 2. T obacco dependency F17.200 3. Congestive heart failure with left ventricular systolic dysfunction I50.20 4. MDS (myelodysplastic syndrome) D46.9 Plan Patient with advanced COPD by PFT criteria. Unfortun ately, patient continues to smoke and likely has had progression. Will obtain a complete pulmonary function test for quantification and clarification of current lung function. Did discuss transition to nebulized medications, but patient is refusing at this time after learning that there are no more efficacious than the inhaler she currently has. Continue with triple therapy and supplemental oxygen. Ke ep saturations greater than 90% at all times. Patient will be highly sensitive to anemia from her myelodysplastic syndrome if this were to reactivate. Obtain complete pulmonary function test. Continue triple therapy. Supplemental oxygen as ordered. Orders Orders: Plan Detail Follow Up 3 Months ([facility]) HPI 3 M FU: Chief Complaint: Shortness of breath on exertion Details: Patient is an 82-year-old female, currently the care of Dr. Jimenez, who presents for evaluation secondary to shortness of breath on exertion. Since last visit, patient denies any ER visits, hospitalizations or prednis one burst. Patient was initiated on Flonase with some improvement in nasal symptoms. Patient is still reporting intermittent watery eyes. Patient has been compliant with Tudorza and Symbicort therapy. Patient denies any complications such as thrush, hoarseness or sore throat. Patient did have questions about possible use of nebulizers for augmentation of prevention. Patient reports worsening respirat ory status during high humidity and high temperature days. Patient feels she is at her baseline when she is in air conditioning. Patient denies any current chest pain, abdominal pain, nausea, vomiting, fever, chills, hemoptysis or syncope. Patient does have dizziness with walking, but attributes this to her stroke. Patient does continue to smoke approximate 1 pack per day. Oj discussion with kevyn andujar revealed that she has no intention of quitting in the near future. Patient feels that my lungs are already gone, so what is the matter. Patient does admit to using albuterol intermittently t o help with toleration of cigarettes. Patient has been noting some overnight snoring. Patient does report fatigue most of the time, but thinks this is secondary to her lung disease. Patient does feel t hat occasionally mucus will get caught in her throat leading to a pressure type sensation. Patient will force herself to cough with relieving of the symptoms. Patient has been using 3-1/2 L nasal cannul a oxygen at all times. No testing was reviewed at this visit Intake Vital Signs11/11/17 Height 5 ft 2 in 11/11/17 Weight: 56.699 kg 11/11/17 Body Mass Index (BMI) 22.8 Intake Visit Reasons: 3 M FU [facility] Complaint: F/u for MDS. DME Vendor: [facility] Accompanied by: Self Allergies alendronate sodium [From Fosamax] Adverse Reaction (Severe, Verified 07/14/17 13:37) gastroenteritis sulfamethoxazole [From Bactrim] Adverse Reaction (Severe, Verified 07/14/17 13:37) thrush trimethoprim [From Bactrim] Adverse Reaction (Severe, Verified 07/14/17 13:37) thrush Medications Atorvastatin Calcium [Lipit or] 80 mg PO QHS 07/06/15 [History Confirmed 10/14/17] Carvedilol [Coreg (Beta Hue)] 3.125 mg PO BID 07/06/15 [History Confirmed 10/14/17] Hydroxychloroquine [Plaquenil] 300 mg PO DAILY 07/06/15 [Hi story Confirmed 10/14/17] Nitroglycerin [Nitrostat] 0.4 mg SUBLINGUAL Q5M PRN 07/06/15 [History Confirmed 10/14/17] Omeprazole [Prilosec] 20 mg PO DAILY 07/06/15 [History Confirmed 10/14/17] Oxycodone H Cl/Acetaminophen [Percocet 5-325] 1 tab PO BID 07/06/15 [History Confirmed 10/14/17] Potassium Chloride [K-Dur] 20 meq PO BID 07/06/15 [History Confirmed 10/14/17] Pregabalin [Lyrica] 75 mg PO TID 07/05 [History Confirmed 10/14/17] Aspirin [Aspirin, Baby] 81 mg PO DAILY@0800 08/23/15 [History Confirmed 10/14/17] Oxygen, Home [Home Oxygen] 3 lpm NASAL CONT 12/01/15 [History Confirmed 10/14/17] Amlod ipine [Norvasc] 2.5 mg PO DAILY #30 tab 12/04/15 [Rx Confirmed 10/14/17] Ascorbic Acid [Vitamin C] 500 mg PO BID #60 tab 12/04/15 [Rx Confirmed 10/14/17] Nicotine [Nicoderm Cq] 21 mg TRANSDERM. DAILY #2 8 patch 12/04/15 [Rx Confirmed 10/14/17] guaifenesin 400 mg tablet 400 mg PO Q4H PRN #30 tab 04/09/17 [Rx Confirmed 10/14/17] cholecalciferol (vitamin D3) 4,000 unit capsule 4,000 unit PO QDAY 07/01/17 [History Confirmed 10/14/17] polysaccharide iron complex 150 mg iron capsule 150 mg PO TID cap 07/05/17 [History Confirmed 10/14/17] aclidinium bromide 400 mcg/actuation breath activated powder inhaler 1 inh INHALATION BID #1 ea 07/14/17 [Rx Confirmed 10/14/17] albuterol sulfate HFA 90 mcg/actuation aerosol inhaler 2 puff INHALATION Q4H PRN #18 g 07/14/17 [Rx Confirmed 10/14/17] budesonide-formoterol HFA 160 mcg-4.5 mcg/actuation aerosol inhaler 2 puff INHALATION BID #10.2 g 07/14/17 [Rx Confirmed 10/14/17] nicotine 21 mg/24 hr daily transdermal patch 21 mg TRANSDERMAL ONCE #30 patch 07/14/17 [Rx Co nfirmed 10/14/17] furosemide 40 mg tablet 40 mg PO BID #60 tab 09/09/17 [Rx Confirmed 10/14/17] Cyanocobalamin [Vitamin B12] 1,000 mcg IM Q30D 10/14/17 [History Confirmed 10/14/17] [facility] Medical Histo ry Long-term use of high-risk medication (Chronic) 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) PND (post-nasal drip) (Chronic) Chronic obstructiv e pulmonary disease (Chronic) Coronary atherosclerosis of [place] coronary artery (Chronic) HLD (hyperlipidemia) (Chronic) HTN (hypertension) (Chronic) Personal history of transient ischemic attack (TIA) 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 (Chronic) CAD (coronary artery disease) (Chronic) Hypokalemia (Acute) Metabolic alkalosis with respiratory acidosis (Chronic) On home O2 (Chronic) Histo ry of CO (myocardial infarction) (Chronic) Acute blood loss anemia (Acute) Heme + stool (Acute) DVT (deep venous thrombosis) (Resolved) SLE (systemic lupus erythematosus) (Chronic) Iron (Fe) deficiency anemia (Chronic) Chronic respiratory failure with hypoxia and hypercapnia (Chronic) Diverticulosis (Chronic) Deficiency anemia (Acute) MDS (myelodysplastic syndrome) (Chronic) CHF (congestive heart fail ure) (Acute) Carpal tunnel syndrome (Acute) Edema (Acute) Family history of CVA (Acute) Fatigue (Acute) Hearing deficit (Acute) Heart disease (Acute) IBS (irritable bowel syndrome) (Acute) Neuropathy (A cute) Osteopenia (Acute) Pneumonia (Acute) Shortness of breath (Acute) Stroke (Acute) Vision disturbance (Acute) Surgical History History of left catara ct extraction (Resolved) History of carpal tunnel surgery (Acute) History of foot surgery (Acute) History of hysterectomy (Acute) History of coronary artery stent placement (Chronic) Family History (R bartweduy 11/11/17 @ 13:[address]) Mother Crohn's disease Father Heart disease Alzheimer disease CVA (cerebral vascular accident) Myocardial infarction Brother Seizures Other Family history of CVA Social History Smoking Status: Current every day smoker second hand exposure: Yes alcohol intake: never substance use type: does not use caffeine: Yes what type of physical activity do you participate in: none Review of Systems Const CONSTITUTIONAL: Positive fatigue; negative anorexia, body ache, chills, daytime sleepiness, fever(s), night sweats, oral thrush, stops breathing during sleep, weight loss, sleeping in chair, weight loss, weight gain, frequent colds, seasonal allergies, other, headache(s) or orthopnea EETM Ear Nose Throat Mouth: Positive hearing normal, nasal discharge and post nasal drip; negative hard of hearing, hoarseness, dry mouth in morning, change in vision, itchy eyes, eye pain, swallowing Difficulty, ear pain, nose bleed, headache(s), mouth pain, nasal conge stion, sinus pain, sinus pressure, sore throat or other Cardio Cardiovascular: Negative chest pain, chest pain at rest, chest pain with activity, irregular heart rhythm, edema, shortness of breath when lying down, palpitations, murmur or other Resp Respiratory: Positive as per HPI, shortness of breath shortness of breath: Positive with activity and cough cough: Positive productive color: Positive mala r, white and yellow; negative pain with cough, wheezing, chest congestion, chest tightness, pain on inspiration, inhalers, increase use of rescue inhalers, snoring, apnea or other Gastro Gastrointestion al: Negative bloody stools, change in appetite, difficulty swallowing, reflux, hematemesis, melena stool, loose stool, constipation or other Genitourinary: Negative blood in urine, nocturia, pain wit h urination or other Musc Musculoskeletal: Negative body pain, back pain, neck pain or other Skin/Breast Skin/Breast: Negative dry skin, itching, rash, unusual bruising, breast lump or other Neuro Neuro logical: Negative restless legs, confusion, weakness or other Psych Psychocological: Negative abnormal sleep pattern, anxiety, thoughts of hurting self/others, hopelessness or other Lymph Lymphatic: Neg ative easy bleeding, easy bruising, swollen lymph nodes or other Exam Const Constitutional: Positive conversant, cooperative, in no acute respiratory distress, well developed, well nourished, frail ap pearing, smells of smoke, appears older than stated age and wearing supplemental oxygen Tobacco stained fingernails and oxygen tubing Head Head: Positive normocephalic and atraumatic; negative cyanosis of lips/distal nose, frontal sinus tenderness or maxillary sinus tenderness Eyes Eye: Positive clear conjunctiva; negative nystagmus, scleral abnormality or cataract present Ears Ear: Positive hearing n ormal and external ears normal; negative hard of hearing Nose Nose: Positive external nose normal, septum normal and no nasal discharge; negative epistaxis or nasal polyp Mouth Mouth: Positive post nasa l drip, oral mucosae normal, no lesions, dentures and posterior oropharynx is adequate; negative malodorous breath or oral thrush present Mallampati Score: I: Mallampati Score Neck Neck: Positive normal visual inspection, full ROM and trachea midline; negative lymphadenopathy or JVD Chest Wall Chest: Positive symmetric chest movement and increased A/P diameter; negative crepitus or tenderness Resp mino g sounds: Positive diminished, wheeze present on forced exhalation, prolonged expiratory time and normal chronic state of increased work of breathing; negative wheezes, rhonchi, rales, use of accessory muscles or dullness to percussion Cardio Cardiac: Positive regular rate, regular rhythm, S1 normal and S2 normal; negative murmur, rub or gallop GI GI: Positive normal to inspection and normal bowel agapito nds; negative distended, ascites or epigastric tenderness Genitourinary: Positive deferred [facility] Musculoskeletal: Positive in a wheelchair; negative kyphosis or scoliosis Skin Pulmonary Skin Exam: Pos itive intact and dermal atrophy; negative rash, lesion, ulcers or erythema Pulses Pulse: Yes radial pulses present Extremities Extremities: Yes capillary refill normal, Yes clubbing, No cyanosis, No marine ma Neuro Neurologic: Yes conversant, Yes no focal neuro deficits, Yes normal concentration, Yes understands questions, Yes cooperative, Yes normal cognition, Yes normal coordination Lymph Lymphatic: No lymphadenopathy Psych Appearance: Positive grossly normal Mental Status: Positive mental status grossly normal Mood: Positive congruent mood Affect: Positive normal affect Coding Level of Care Code Of f vis,est,level 3 Diagnoses Stage 3 severe COPD by GOLD classification J44.9 Tobacco dependency F17.200 Congestive heart failure with left ventricular systolic dysfunction I50.20 MDS (myelodysplastic s yndrome) D46.9 11/11/17 1559 <Electronically signed by Sincere Castillo MD> Date Sincere Castillo MD Cosigner Signature: Date (if applicable) CC: Priya Jimenez DO 14-Oct-2017 Oncology Visit Report Result: Comments: See Note; NOTES: [facility] Oncology [address] [place] [address] OFFICE VISIT Date of Service: 10/14/17 1513 MR#: [id number] Acct: [id number] Name: KILEY DREW Rep #: [id number] : 1935 From: Ronan Donahue MD Age/Sex: 82/F Location: OMD Status: Signed Subjective - Date of Service Date of Service:: 10/14/17 - Chief Complaint F/u for MDS. - History of Present Illness Ms. Kiley Drew is a pleasant 82y.o.woman was found to have severe anemia in November 2015. 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 Flow cytometry revealed no significant immunophenotypic abnormality, normal female karyotype obser abe. Blasts 2%. She is currently on observation, comes in for follow up. She feels well. - Past Medical/Social History Past Medical History Past Medical History: Anemia,Blood transfusion,Cataracts,Chr onic bronchitis,Congestive heart failure,COPD,Hearing problems,Heart disease,Hyperlipidemia, Hypertension,Osteopenia,Pneumonia,Stroke,Vision problems,Neuropathy,IBS,Carpal tunnel syndrome, Fatigue,Diarr hea,Peripheral neuropathy Other Past Medical History: LUPOS SLE Cancer: Skin cancer Past Surgical History Surgical: Carpal tunnel,Hysterectomy Other Surgical History: FOOT SURGERY Family History Yolanda kong Past Medical History: Alzheimer's disease,Heart disease Maternal Past Medical History: Crohn's disease Social History Smoking Status Current every day smoker Review of Systems Constitutional: : Denies: Fever, Sweats, Weight loss, Appetite change, Chills Cardiovascular:: Denies: Chest pain, Palpitations, Dyspnea on exertion, Orthopnea, PND, Shortness of breath Respiratory: Denies: Cough, Hemo ptysis, Shortness of Breath, Wheezing Gastrointestinal:: Denies: Abdominal pain, Nausea, Vomiting, Diarrhea, Constipation, Hematochezia Genitourinary: Denies: Dysuria, Hematuria, 15, Flank pain Musculos keletal:: Denies: Back pain, Myalgia, Arthralgia Skin: Denies: Rash, Skin Changes, Wounds Neurological:: Denies: Headache, Dizziness, Visual changes, Tinnitus, Hearing loss Psychiatric: Denies: Anxiety, Depression, Homicidal Ideations, Suicidal Ideations Vital Signs Height 5 ft 2 in Weight: 59.421 kg Weight in Pounds 131.0 lbs Pulse Ox 89 - Physical Exam General: Alert, Oriented x3, No apparent d istress HEENT: Atraumatic, PERRLA, EOMI, Normocephalic Oropharynx:: Dry mucosa Neck:: Supple, Trachea midline. Negative for: JVD, bilateral Cardiac:: Regular rate, Regular rhythm, Normal S1, Normal S2. Negative for: Murmur Lungs: Clear to auscultation, Excusion symmetrical. Negative for: Rhonchi, Wheezes Abdomen:: Negative for: Rebound tenderness Extremities:: - - R lower extremity shorter than L.. Ne gative for: Cyanosis, Edema Lymphatics:: Negative for: Cervical lymphadenopathy, Supraclavicular lymphadenopathy, Axillary lymphadenopathy Laboratory Data: Laboratory Tests WBC 7.4 Hgb 12.2 Hct 40.2 P lt Count 249 Absolute Neuts (auto) 5.6 Assessment and Plan MDS-RARS, Hgb is about 12. IPSS-1. Clinically stable, asymptomatic. Plan is to continue observation. RTC 3 months with CBC/CMP/iron studi es. Medications: Prescriptions This Visit Medication Instructions Recorded Cyanocobalamin [Vitamin B12] 1,000 mcg IM Q30D 10/14/17 Primary Care Provider: Referring Provider: - Problem List (1) MDS (myelodysplastic syndrome) Status: Chronic Code Visit Office Visits / Consults: 57839 OV L3 Est 10/14/17 1518 <Electronically signed by Ronan Donahue MD> Date Ronan Donahue MD Cosigner Signature: Date (if applicable) CC: 16-Jul-2017 Pulmonary Visit Report Result: Comments: See Note; NOTES: [facility] [address] [place] [address] OFFICE VISIT Date of Service: 07/14/17 MR#: [id number] Acct: [id number] Name: KILEY MARKS Rep #: [id number] : 1935 Provider: Aida Lindo Age/Sex: 81/F Location[facility] Status: Signed Assessment AND Plan 1. Stage 3 severe COPD by GOLD classification J44.9 Status Senyd marquis Plan Continue triple therapy maintenance. He does not appear to be in exacerbation of her COPD today. She does not feel that she would be able to participate in a complete pulmonary function test, I do agree. Follow-up with Dr. Catsillo in 3 months. She has been encouraged to contact the office if she develops any signs of a COPD exacerbation prior to that follow-up. She conveys understanding. 2. Chronic respiratory failure with hypoxia and hypercapnia J96.11; J96.12 Status Chronic Plan Continue to use supplemental oxygen as needed to maintain saturations 89-92%. Follow-up with Dr. Castillo in 3 months. 3. Tobacco dependence F17.200 Status Chronic Plan 7 minute conversation regarding smoking cessation. The patient would like to try nicotine patches. These have been provided to her. 1 month sup ply of step 3 order, she needs to call the office when that runs out and she needs to step down to step 2. Follow-up Dr. Castillo in 3 months. Plan Detail Other Medications New: albuterol sulfate HFA 90 mcg/actuation (Vento2 puffs Inhalation Q4H PRN shortness of galdino moni HFA) th or wheezing Changed: Refilled: Follow Up 3 Months ([facility]) HPI 3 M FU: Chief Complaint: Shortness of breath HPI Comments Deta ils: This patient presents to the office today to follow-up on her very severe COPD and her chronic hypoxic respiratory failure. She is in a wheelchair, currently wearing nasal cannula oxygen. Reports that she has not been ill over the winter, has not required antibiotics or prednisone for respiratory illnesses. She has not been to the ED or urgent care for any breathing problems. The she continues compliance with her Symbicort 2 puffs twice daily. She reports rinsing her mouth out after each use. She is also compliant with Tudorza 1 puff twice daily. She denies any medication side effects such as sore throat, thrush or hoarseness. She is using her Ventolin rescue inhaler 2- 4 times daily. She does find that it gives her temporary relief of her shortness of breath. Currently, she denies any hemo ptysis. He has occasional wheezing and chest tightness, which is relieved by her rescue inhaler. She denies any chest pain or palpitations. She denies any fever, chills or body aches. She does report andrews ving some occasional thick clear to pale yellow sputum She has not tried any other hpni-vje-nlijlfa medications. . She reports that she does have Mucinex at home but has not tried it to loosen the secre tions. He previously attended pulmonary rehab. She would like to be considered for pulmonary rehab again. Unfortunately, she continues to smoke 1 pack of cigarettes daily. Currently requires 2-2.5 L/m in of continuous nasal cannula oxygen to maintain saturations greater than 89%. She is using and benefiting from supplemental oxygen. Intake Vital Signs07/14/17 Height 5 ft 2 in 07/14/17 Weight: 131 lb 07/14/17 Body Mass Index (BMI) 23.9 07/14/17 Blood Pressure 93/57 Intake Visit Reasons: 3 M FU Chief Complaint: F/u for MDS. DME Vendor: [employer] Accompanied by: Self Allergies alendronate sodium [From Fosamax] Adverse Reaction (Severe, Verified 07/14/17 13:37) gastroenteritis sulfamethoxazole [From Bactrim] Adverse Reaction (Severe, Verified 07/14/17 13:37) thrush trimethoprim [From Bactrim] A dverse Reaction (Severe, Verified 07/14/17 13:37) thrush Medications Atorvastatin Calcium [Lipitor] 80 mg PO QHS 07/06/15 [History Confirmed 07/14/17] Carvedilol [Coreg (Beta Hue)] 3.125 mg PO BI D 07/06/15 [History Confirmed 07/14/17] Furosemide [Lasix] 40 mg PO BID 07/06/15 [History Confirmed 07/14/17] Hydroxychloroquine [Plaquenil] 300 mg PO DAILY 07/06/15 [History Confirmed 07/14/17] Nitrogl ycerin [Nitrostat] 0.4 mg SUBLINGUAL Q5M PRN 07/06/15 [History Confirmed 07/14/17] Omeprazole [Prilosec] 20 mg PO DAILY 07/06/15 [History Confirmed 07/14/17] Oxycodone HCl/Acetaminophen [Percocet 5-325] 1 tab PO BID 07/06/15 [History Confirmed 07/14/17] Potassium Chloride [K-Dur] 20 meq PO BID 07/06/15 [History Confirmed 07/14/17] Pregabalin [Lyrica] 75 mg PO TID 07/06/15 [History Confirmed 07/14/17] Aspirin [Aspirin, Baby] 81 mg PO DAILY@0800 08/23/15 [History Confirmed 07/14/17] Oxygen, Home [Home Oxygen] 3 lpm NASAL CONT 12/01/15 [History Confirmed 07/14/17] Amlodipine [Norvasc] 2.5 mg PO DAILY # 30 tab 12/04/15 [Rx Confirmed 07/14/17] Ascorbic Acid [Vitamin C] 500 mg PO BID #60 tab 12/04/15 [Rx Confirmed 07/14/17] Nicotine [Nicoderm Cq] 21 mg TRANSDERM. DAILY #28 patch 12/04/15 [Rx Confirmed ] guaifenesin 400 mg tablet 400 mg PO Q4H PRN #30 tab 04/09/17 [Rx Confirmed 07/14/17] cholecalciferol (vitamin D3) 4,000 unit capsule 4,000 unit PO QDAY 07/01/17 [History Confirmed 07/14/17] poly saccharide iron complex 150 mg iron capsule 150 mg PO TID cap 07/05/17 [History Confirmed 07/14/17] aclidinium bromide 400 mcg/actuation breath activated powder inhaler 1 inh INHALATION BID #1 ea [Rx Confirmed 07/14/17] albuterol sulfate HFA 90 mcg/actuation aerosol inhaler 2 puff INHALATION Q4H PRN #18 g 07/14/17 [Rx Confirmed 07/14/17] budesonide- formoterol HFA 160 mcg-4.5 mcg/actuation aer osol inhaler 2 puff INHALATION BID #10.2 g 07/14/17 [Rx Confirmed 07/14/17] nicotine 21 mg/24 hr daily transdermal patch 21 mg TRANSDERMAL ONCE #30 patch 07/14/17 [Rx Confirmed 07/14/17] PFSH Medical History Long-term use of high-risk medication (Chronic) 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) PND (post-nasal drip) (Chronic) Chron ic obstructive pulmonary disease (Chronic) Coronary atherosclerosis of [place] coronary artery (Chronic) HLD (hyperlipidemia) (Chronic) HTN (hypertension) (Chronic) Personal history of transient ischemic attack (TIA) 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 (Chronic) CAD (coronary artery disease) (Chronic) Hypokalemia (Acute) Metabolic alkalosis with respiratory acidosis (Chronic) On home O2 (C hronic) History of CO (myocardial infarction) (Chronic) Acute blood loss anemia (Acute) Heme + stool (Acute) DVT (deep venous thrombosis) (Resolved) SLE (systemic lupus erythematosus) (Chronic) Iron (Fe ) deficiency anemia (Chronic) Chronic respiratory failure with hypoxia and hypercapnia (Chronic) Diverticulosis (Chronic) Deficiency anemia (Acute) MDS (myelodysplastic syndrome) (Chronic) CHF (congesti ve heart failure) (Acute) Carpal tunnel syndrome (Acute) Edema (Acute) Family history of CVA (Acute) Fatigue (Acute) Hearing deficit (Acute) Heart disease (Acute) IBS (irritable bowel syndrome) (Acute) Neuropathy (Acute) Osteopenia (Acute) Pneumonia (Acute) Shortness of breath (Acute) Stroke (Acute) Vision disturbance (Acute) Surgical History Hi story of left cataract extraction (Resolved) History of carpal tunnel surgery (Acute) History of foot surgery (Acute) History of hysterectomy (Acute) History of coronary artery stent placement (Chronic) Family History Mother Crohn's disease Father Heart disease Alzheimer disease CVA (cerebral vascular accident) Myocardial infarction Brother Seizu res Other Family history of CVA Social History Smoking Status: Current every day smoker second hand exposure: Yes alcohol intake: never substance use type: does not use caffeine: Yes what type o f physical activity do you participate in: none Review of Systems Const CONSTITUTIONAL: Positive fatigue; negative anorexia, body ache, chills, daytime sleepiness, fever(s), night sweats, oral thru sh, stops breathing during sleep, weight loss, sleeping in chair, weight loss, weight gain, frequent colds, seasonal allergies, other, headache(s) or orthopnea EETM Ear Nose Throat Mouth: Positive hard of hearing and post nasal drip; negative hearing normal, hoarseness, dry mouth in morning, change in vision, itchy eyes, eye pain, swallowing Difficulty, ear pain, nose bleed, headache(s), mouth pain, n rodrigo congestion, nasal discharge, sinus pain, sinus pressure, sore throat or other Cardio Cardiovascular: Positive edema Location: lower extremity; negative chest pain, chest pain at rest, chest pain wi th activity, irregular heart rhythm, shortness of breath when lying down, palpitations, murmur or other Resp Respiratory: Positive as per HPI, shortness of breath shortness of breath: Positive with acti vity and cough cough: Positive productive (not all the time ) color: Positive thin, yellow and clear; negative pain with cough, wheezing, chest congestion, chest tightness, pain on inspiration, inhalers , increase use of rescue inhalers, snoring, apnea or other Gastro Gastrointestional: Negative bloody stools, change in appetite, difficulty swallowing, reflux, hematemesis, melena stool, loose stool, co nstipation or other Genitourinary: Negative blood in urine, nocturia, pain with urination or other Musc Musculoskeletal: Negative body pain, back pain, neck pain or other Skin/Breast Skin/Breast: Neg ative dry skin, itching, rash, unusual bruising, breast lump or other Neuro Neurological: Negative restless legs, confusion, weakness or other Psych Psychocological: Negative abnormal sleep pattern, anx iety, thoughts of hurting self/others, hopelessness or other Lymph Lymphatic: Negative easy bleeding, easy bruising, swollen lymph nodes or other Exam Const Constitutional: Positive conversant, romná ative, in no acute respiratory distress, well nourished, good hygiene, frail appearing, wearing supplemental oxygen and dyspenic Head Head: Positive normocephalic and atraumatic; negative cyanosis of li ps/distal nose Eyes Eye: Positive clear conjunctiva and nystagmus; negative scleral abnormality Ears Ear: Positive hard of hearing and external ears normal; negative hearing normal Nose Nose: Positive e xternal nose normal and no nasal discharge; negative epistaxis Mouth Mouth: Positive post nasal drip, oral mucosae normal, dentures, no lesions and posterior oropharynx is adequate; negative malodorous breath or oral thrush present Mallampati Score: I: Mallampati Score Neck Neck: Positive normal visual inspection, full ROM and trachea midline; negative lymphadenopathy, JVD or tender Chest Wall Chest: Positive normal inspection of the chest and symmetric chest movement; negative increased A/P diameter Resp lung sounds: Positive diminished, clear to auscultation, normal expiratory time and normal resp iratory effort; negative wheezes, wheeze present on forced exhalation, rhonchi, rales or dullness to percussion Cardio Cardiac: Positive regular rate, regular rhythm, S1 normal and S2 normal; negative m urmur GI GI: Positive normal to inspection and normal bowel sounds; negative distended Genitourinary: Positive deferred Musc Musculoskeletal: Positive ROM normal and in a wheelchair; negative kyphosi s or scoliosis Skin Pulmonary Skin Exam: Positive intact; negative rash, lesion, ulcers, erythema, scaly or dermal atrophy Pulses Pulse: Yes pulses normal x4 extremities Extremities Extremities: Yes marine ma Location: lower extremity location: Bilateral pitting trace, Yes capillary refill normal, Yes clubbing, No cyanosis, No stasis dermatitis Neuro Neurologic: Yes conversant, Yes no focal neuro deficits , Yes cooperative, Yes normal cognition, Yes normal coordination, Yes normal concentration, Yes understands questions Lymph Lymphatic: No lymphadenopathy, No tenderness, No cervical adenopathy, No axill sonja adenopathy Psych Appearance: Positive grossly normal, eye contact and well kempt Mental Status: Positive mental status grossly normal Mood: Positive congruent mood Affect: Positive normal affect C oding Level of Care Code Off vis,est,level 3 Diagnoses Stage 3 severe COPD by GOLD classification J44.9 Chronic respiratory failure with hypoxia and hypercapnia J96.11; J96.12 Tobacco dependence F17.20 0 07/16/17 1025 <Electronically signed by Aida PENNINGTON> Date Aida PENNINGTON Cosigner Signature: Date _ (if applicable) CC: Priya Jimenez DO 13-Jul-2017 Cardiology Visit Report Result: Comments: See Note; NOTES: [facility] [place] [address] OFFICE VISIT Date of Service: 07/05/17 MR#: [id number] Acct: [id number] Name: KILEY DREW Jada Salguero ep #: [id number] : 1935 Provider: Lianne Tovar Age/Sex: 81/F Location[place] [facility] Status: Signed HPI HPI Details: KILEY DREW, is a 81 F who presents to the office today for a cardiovascular follow-up. She has a history of coronary artery disease with stenting to her RCA in 2013 following a myocardial infarction. She also at that time was noted to have papillary muscle rupture, severe mitr al regurgitation, during that event she needed to be intubated and placed on the balloon pump and Levophed. She does have a history of hypertension, hyperlipidemia, myelodysplastic syndrome. Pt questio ns about myocardial bridging of LAD From a cardiac standpoint, patient is doing well. She does not have any chest discomfort/heaviness/tightness. She does feel that her SOB has worsened, she feels that this is related to her COPD. Unfortunately she continues to smoke. Her exercise tolerance is limited. She does not have any orthopnea. She denies PND. She does not have any symptoms of congestive heart failure. She does not have any palpitations that she is aware of. She does not have any lightheadedness or dizziness. She does not have any near-syncope or syncope. She does occasionally have lower ext remity edema. She does not have any symptoms of claudication. Intake Vital Signs07/05/17 Height 5 ft 2 in 07/05/17 Weight: 131 lb 07/05/17 Body Mass Index (BMI) 23.9 07/05/17 Blood Pressure 110/70 0 07/05/17 Pulse Rate 96 Intake Visit Reasons: 6 M FU Allergies alendronate sodium [From Fosamax] Adverse Reaction (Severe, Verified 07/05/17 13:58) gastroenteritis sulfamethoxazole [From Bactrim] Adver se Reaction (Severe, Verified 07/05/17 13:58) thrush trimethoprim [From Bactrim] Adverse Reaction (Severe, Verified 07/05/17 13:58) thrush Medications Atorvastatin Calcium [Lipitor] 80 mg PO QHS 06/24 06/11 [History Confirmed 07/05/17] Carvedilol [Coreg (Beta Hue)] 3.125 mg PO BID 07/06/15 [History Confirmed 07/05/17] Furosemide [Lasix] 40 mg PO BID 07/06/15 [History Confirmed 07/05/17] Hydroxychl oroquine [Plaquenil] 300 mg PO DAILY 07/06/15 [History Confirmed 07/05/17] Nitroglycerin [Nitrostat] 0.4 mg SUBLINGUAL Q5M PRN 07/06/15 [History Confirmed 07/05/17] Omeprazole [Prilosec] 20 mg PO DAILY 07/06/15 [History Confirmed 07/05/17] Oxycodone HCl/Acetaminophen [Percocet 5- 325] 1 tab PO BID 07/06/15 [History Confirmed 07/05/17] Potassium Chloride [K- Dur] 20 meq PO BID 07/06/15 [History Confirmed 07/05/17] Pregabalin [Lyrica] 75 mg PO TID 07/06/15 [History Confirmed 07/05/17] Aclidinium [place] [Tudorza Pressair] 1 puff IH BID 08/23/15 [History Confirmed 07/05/17] Aspirin [Aspirin, Baby] 81 mg PO DAILY@0800 08/23/15 [History Confirmed 07/05/17] Oxygen, Home [Home Oxygen] 3 lpm NASAL CONT 12/01/15 [History Confirmed 07/05/17] Amlodipine [Norvasc] 2.5 mg PO DAILY #30 tab 12/04/15 [Rx Confirmed 07/05/17] Ascorbic Acid [Vitamin C] 500 mg PO BID #60 tab 12/04/15 [Rx Confirmed 07/05/17] Nicotine [Nicoderm Cq] 21 mg TRANSDERM. DAILY #28 patch 12/04/15 [Rx Confirmed 07/05/17] guaifenesin 400 mg tab let 400 mg PO Q4H PRN #30 tab 04/09/17 [Rx Confirmed 07/05/17] budesonide-formoterol HFA 160 mcg-4.5 mcg/actuation aerosol inhaler 2 puff INHALATION BID #10.2 g 05/26/17 [Rx Confirmed 07/05/17] cholecal ciferol (vitamin D3) 4,000 unit capsule 4,000 unit PO QDAY 07/01/17 [History Confirmed 07/05/17] polysaccharide iron complex 150 mg iron capsule 150 mg PO TID cap 07/05/17 [History] Ejection fraction %: 50 to 54 PFSH Medical History Long-term use of high-risk medication (Chronic) 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) PND (post-nasal drip) (Chronic) Chronic obstructive pulmonary dise ase (Chronic) Coronary atherosclerosis of [place] coronary artery (Chronic) HLD (hyperlipidemia) (Chronic) HTN (hypertension) (Chronic) Personal history of transient ischemic attack (TIA) and cerebral in farction without residual deficit (Chronic) CAD (coronary artery disease) (Chronic) Hypokalemia (Acute) Metabolic alkalosis with respiratory acidosis (Chronic) On home O2 (Chronic) History of CO (myocar dial infarction) (Chronic) Acute blood loss anemia (Acute) Heme + stool (Acute) DVT (deep venous thrombosis) (Resolved) SLE (systemic lupus erythematosus) (Chronic) Iron (Fe) deficiency anemia (Chronic) Chronic respiratory failure with hypoxia and hypercapnia (Chronic) Diverticulosis (Chronic) Deficiency anemia (Acute) MDS (myelodysplastic syndrome) (Chronic) CHF (congestive heart failure) (Acute) Car pal tunnel syndrome (Acute) Edema (Acute) Family history of CVA (Acute) Fatigue (Acute) Hearing deficit (Acute) Heart disease (Acute) IBS (irritable bowel syndrome) (Acute) Neuropathy (Acute) Osteopenia (Acute) Pneumonia (Acute) Shortness of breath (Acute) Stroke (Acute) Vision disturbance (Acute) Surgical History History of left cataract extraction (Resolved) History of carpal tunnel surgery (Acut e) History of foot surgery (Acute) History of hysterectomy (Acute) History of coronary artery stent placement (Chronic) Family History Mother Crohn's disease Father Heart disease Alzheimer disease CVA (cerebral vascular accident) Myocardial infarction Brother Seizures Other Family history of CVA Social History Smoking Status: Current every day smoker second hand exposure: Yes alcohol intake: ne jaime substance use type: does not use caffeine: Yes what type of physical activity do you participate in: none ROS Const Const: Negative for weakness, fatigue, fever(s) or headache(s) Eyes Eyes: Negative for blind spots, loss of peripheral vision or transient loss of vision ENT ENT: Negative for headache(s), dizziness, tinnitus or Nosebleed/epistaxis Cardio Chest Pain: No Palpitations: No Edema : Bilateral Muscle aches with walking: None Resp Respiratory: Positive for SOB with activity; negative for SOB at rest, SOB orthopnea\SOB lying down or Cough GI GI: Negative nausea, vomiting, heartburn or vomiting blood/hematemesis : Negative for hematuria Musc Musc: Positive for muscle aches/ myalgia and muscle weakness Neuro Neuro: Negative for weakness, headache(s), dizziness, near syncope, sy ncope, lightheadedness or orthostatic symptoms Anibal Hematologic/Lymphatic: Negative for easy bleeding Endo Endo: Negative for fatigue Cardiology Exam Const Appearance: cooperative and no acute distres s Nutritional Appearance: thin Orientation: alert, awake and oriented x3 Head Head: normocephalic and atraumatic Mouth: moist mucous membranes Eyes General: appearance normal, both eyes and all related structures Conjunctivae: conjunctivae normal Pupils: PERRL EOM: EOM intact bilaterally Neck Neck: normal visual inspection, no lymphadenopathy and no JVD Carotids: Negative bruit Neck Mass: Negative Nec k mass Chest Chest inspection: normal inspection of the chest and symmetric chest movement Auscultation: Bilateral: Diminished Lung Sounds Cardio Palpation: normal PMI Rate: regular rate Rhythm: regular rhythm Heart sounds: S1 normal, S2 normal and murmur; negative rub or gallop Murmur: soft, Grade 2/6 and mid systolic GI GI: normal to inspection, soft, no hepatosplenomegaly and bowel sounds present; negative tender Neuro General: alert, awake, oriented x3, CN's II-XI intact bilaterally and moves all extremities Extremities Pulses: Normal: Right Posterior Tibial Pulse, Left Posterior Tibial Pulse, R ight Radial Pulse, Left Radial Pulse Lower Extremity Edema: +1: Bilateral Psych Psychological: normal affect Supplemental Info Echocardiogram in 2016 demonstrates an ejection fraction of 50%. Mild rula ral insufficiency. Mild to moderate tricuspid insufficiency. Mild aortic insufficiency. Pharmacologic nuclear stress test in 2015 was negative for ischemia. Assessment AND Plan 1. Atherosclerosis of [place] coronary artery of [place] heart without angina pectoris I25.10 Plan - LISA La Stable, from a cardiac standpoint patient does not have any symptoms of angina. We recommend that th ey continue with current aggressive medical management and risk factor modification. 2. Essential hypertension I10 Plan - LISA La Blood pressure is well controlled on current medicatio ns, we do not recommend any changes at this time. 3. Pure hypercholesterolemia E78.00; E78.0 Plan - LISA La Lipids are obtained by her primary care doctor. Have requested that she brin g a copy of labs for our office. 4. Tobacco dependency F17.200 LISA Moralez Strongly encouraged cessation however patient is interested in doing this at this time. Plan Detail Addit ional Comments - LISA La The above patient was discussed with Dr. Barboza, he agrees with plan of care. Thank you for allowing us to participate in patient's plan of care, if you have an y questions please do not hesitate to call. This note was generated using a voice recognition system and there may be incorrect words, spelling or punctuation errors that were not noted when reviewing the office note prior to saving. 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) 07/05/17 ([facility] old heart cath records our [facility]- thank you) Coding Level of Care Code Off vis,est,level 3 Diagnoses Atherosclerosis o f [place] coronary artery of [place] heart without angina pectoris I25.10 Coronary Disease-Associated Artery/Lesion type: [place] artery Essential hypertension I10 Hypertension type: essential hypertension Pure hypercholesterolemia E78.00; E78.0 Hyperlipidemia type: pure hypercholesterolemia Tobacco dependency F17.200 Coding Level of Care Code Off vis,est,level 3 Diagnoses Atherosclerosis of [place] co ronary artery of [place] heart without angina pectoris I25.10 Coronary Disease- Associated Artery/Lesion type: [place] artery Essential hypertension I10 Hypertension type: essential hypertension Pure hyper cholesterolemia E78.00; E78.0 Hyperlipidemia type: pure hypercholesterolemia Tobacco dependency F17.200 07/09/17 1701 <Electronically signed by Lianne GONZALEZ> Date __ Lianne GONZALEZ 07/13/17 1204<Electronically signed by Kaden Barboza MD> Cosigner Signature: Date (if applicable) Kaden Barboza MD CC: Priya Jimenez DO 07-Jul-2017 Oncology Visit Report Result: Comments: See Note; NOTES: [facility] [address] [place] [address] OFFICE VISIT Date of Service: 07/07/17 1417 MR#: [id number] Acct: [id number] Name: KILEY DREW Rep #: [id number] : 1935 From: Ronan Donahue MD Age/Sex: 81/F Location: [facility] Status: Signed Subjective - Date of Service Date of Service:: 07/07/17 - Chief Complaint F/u for MDS. - History of Present Illness Ms. Kiley rDew is a pleasant 81y.o.woman was found to have severe anemia in November 2015. 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 Flow cytometry revealed no significant immunophenotypic abnormality, normal female karyotype obser abe. Blasts 2%. She is currently on observation. Comes in for follow up. She feels well. - Past Medical/Social History Past Medical History Past Medical History: Anemia,Blood transfusion,Cataracts,Chr onic bronchitis,Congestive heart failure,COPD,Hearing problems,Heart disease,Hyperlipidemia, Hypertension,Osteopenia,Pneumonia,Stroke,Vision problems,Neuropathy,IBS,Carpal tunnel syndrome, Fatigue,Diarr hea,Peripheral neuropathy Other Past Medical History: LUPOS SLE Cancer: Skin cancer Past Surgical History Surgical: Carpal tunnel,Hysterectomy Other Surgical History: FOOT SURGERY Family History Yolanda roryjose Past Medical History: Alzheimer's disease,Heart disease Maternal Past Medical History: Crohn's disease Social History Smoking Status Current every day smoker Review of Systems Constitutional: : Reports: - - on home O2. Denies: Fever, Sweats, Weight loss, Appetite change, Chills Cardiovascular:: Denies: Chest pain, Palpitations, Dyspnea on exertion, Orthopnea, PND, Shortness of breath Respira tory: Denies: Cough, Hemoptysis, Shortness of Breath, Wheezing Gastrointestinal:: Denies: Abdominal pain, Nausea, Vomiting, Diarrhea, Constipation, Hematochezia Genitourinary: Denies: Dysuria, Hematuria , 15, Flank pain Musculoskeletal:: Denies: Back pain, Myalgia, Arthralgia Skin: Denies: Rash, Skin Changes, Wounds Neurological:: Denies: Headache, Dizziness, Visual changes, Tinnitus, Hearing loss Psyc hiatric: Denies: Anxiety, Depression, Homicidal Ideations, Suicidal Ideations Vital Signs Height 5 ft 2 in Weight: 59.421 kg Weight in Pounds 131.0 lbs Pulse Ox 84 - Physical Exam General: Alert, O riented x3, No apparent distress HEENT: Atraumatic, PERRLA, EOMI, Normocephalic Oropharynx:: Dry mucosa Neck:: Supple, Trachea midline. Negative for: JVD, bilateral Cardiac:: Regular rate, Regular rhyth m, Normal S1, Normal S2. Negative for: Murmur Lungs: Clear to auscultation, Excusion symmetrical. Negative for: Rhonchi, Wheezes Laboratory Data: Laboratory Tests WBC 8.4 Cancelled Corrected WBC Cancel led RBC 4.62 Cancelled Hgb 13.1 Cancelled Hct 43.3 Cancelled Assessment and Plan MDS-RARS, Hgb is about 13. IPSS-1. Clinically stable, asymptomatic. Plan is to continue observation. RTC 3 months w ith CBC/CMP/iron studies. Primary Care Provider: Referring Provider: - Problem List (1) MDS (myelodysplastic syndrome) Status: Chronic Code Visit Office Visits / Consults: [id number] OV L3 Est 07/07/17 1 421 <Electronically signed by Ronan Donahue MD> Date Ronan Donahue MD Cosigner Signature: Date (if applicable) CC: 08-Jun-2017 Pulmonary Visit Report Result: Comments: See Note; NOTES: [facility] [address] [place] [address] OFFICE VISIT Date of Service: 06/08/17 MR#: [id number] Acct: [id number] Name: KILEY MARKS Rep #: [id number] : 1935 Provider: Sincere Castillo MD Age/Sex: 81/F Location: [facility] Status: Signed Assessment AND Plan 1. Stage 3 severe COPD by GOLD classification J44.9 Plan Severe C OPD by PFT criteria approximately 3 years ago. Do anticipate the patient has had progression of disease, but after review of the risks, benefits and alternatives, patient has reported that she does not want to continue with periodic screening with pulmonary function test. Patient feels that she would not be able to complete it appropriately with her current function. Patient is on triple therapy at th is time. Stressed the importance of compliance with supplemental oxygen to keep saturations greater than 90% at all times. Continue current therapy. Encourage smoking cessation. 2. PND (post-nasal dr ip) R09.82 Plan Patient has had some increased nasal congestion recently with a decrease in temperatures. No epistaxis has been reported. Patient was placed on a nasal steroid by her primary care physic tom. Patient states that the increased volume of cough appears similar to nasal secretions. This would reinforce the presence of postnasal drip. Appropriate use of nasal steroids were reviewed with the patient. Continue with current therapy 3. Chronic respiratory failure with hypoxia and hypercapnia J96.11; J96.12 Plan Patient is compliant with supplemental oxygen therapy. Stressed to the patient t jaquelin importance of keeping saturation 90-94% at all times. Patient excessive oxygen can lead to CO2 retention and decreased mentation. Also stressed to the patient that taking off her oxygen to facilitate smoking can lead to desaturation and falls. Patient voiced understanding. Continue supplemental oxygen therapy. 4. Tobacco dependency F17.200 Plan Discussed with patient for 11 minutes on the import ance of complete smoking cessation. Patient states that she is reached a level of frustration secondary to repeated failures. Stressed to the patient that support can be offered when she is ready to phyllis e this step. Patient understands that this could lead to improvement ciliary clearance. Continue to encourage smoking cessation HPI 3 M FU: Chief Complaint: Shortness of breath on exertion Details: Patient is an 81-year-old female, currently under the care of Dr. Dawson, who presents for evaluation secondary to shortness of breath on exertion. Since last visit, patient denies any ER vis its, hospitalizations or prednisone burst. Patient has been compliant with Tudorza and Symbicort therapy. Patient denies any complications such as thrush, hoarseness or sore throat. Patient has noted so me increased nasal congestion and increased volume of production with decrease in weather. Patient attributes this to postnasal drip and states that she has attempted using a nasal steroid with minimal effect. Patient continues to smoke approximately 1 pack per day. Patient states she does remove her oxygen to facilitate her smoking. Patient denies any cyanosis associated with these events. Patient s tates that otherwise she wears her oxygen [id number] without complication. Patient states she does routinely check her saturations and they are above 94% at all times. Patient continues to have a cough on a daily basis. Increased volume at this time, but not associated with increased shortness of breath or increased frequency. Patient denies any associated fever, chills, nausea or vomiting. In take Vital Signs06/08/17 Height 5 ft 2 in 06/08/17 Weight: 60.328 kg 06/08/17 Body Mass Index (BMI) 24.3 06/08/17 Blood Pressure 100/60 Intake Visit Reasons: 3 M FU Allergies alendronate sodium [From Fosamax] Adverse Reaction (Severe, Verified 06/08/17 12:58) gastroenteritis sulfamethoxazole [From Bactrim] Adverse Reaction (Severe, Verified 06/08/17 12:58) thrush trimethoprim [From Bactrim] Adverse Reaction (Severe, Verified 06/08/17 12:58) thrush Medications Atorvastatin Calcium [Lipitor] 80 mg PO QHS 07/06/15 [History Confirmed 06/08/17] Carvedilol [Coreg (Beta Hue)] 3.125 mg PO BID 06/24 06/11 [History Confirmed 06/08/17] Furosemide [Lasix] 40 mg PO BID 07/06/15 [History Confirmed 06/08/17] Hydroxychloroquine [Plaquenil] 300 mg PO DAILY 07/06/15 [History Confirmed 06/08/17] Nitroglycerin [Nitrostat] 0.4 mg SUBLINGUAL Q5M PRN 07/06/15 [History Confirmed 06/08/17] Omeprazole [Prilosec] 20 mg PO DAILY 07/06/15 [History Confirmed 06/08/17] Oxycodone HCl/Acetaminophen [Percocet 5-325] 1 tab PO BID 07/06/15 [History Confirmed 06/08/17] Potassium Chloride [K-Dur] 20 meq PO BID 07/06/15 [History Confirmed 06/08/17] Pregabalin [Lyrica] 75 mg PO TID 07/06/15 [History Confirmed 06/08/17] Aclidi nium [place] [Tudorza Pressair] 1 puff IH BID 08/23/15 [History Confirmed 06/08/17] Aspirin [Aspirin, Baby] 81 mg PO DAILY@0800 08/23/15 [History Confirmed 06/08/17] Oxygen, Home [Home Oxygen] 3 lpm DEMETRIO AL CONT 12/01/15 [History Confirmed 06/08/17] Amlodipine [Norvasc] 2.5 mg PO DAILY #30 tab 12/04/15 [Rx Confirmed 06/08/17] Ascorbic Acid [Vitamin C] 500 mg PO BID #60 tab 12/04/15 [Rx Confirmed 8] Iron Polysaccharide Complex [Ferrex 150] 150 mg PO BID #60 cap 12/04/15 [Rx Confirmed 06/08/17] Nicotine [Nicoderm Cq] 21 mg TRANSDERM. 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) PND (post-nasal drip) (Chronic) Chronic obstructive pulmonary disease (Chronic) Coronary atherosclerosis of [place] coronary artery (Chronic) HLD (hyperlipidemia) (Chronic) HTN (hypertension) (Chronic) 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) CAD (coronary artery disease) (Chronic) Hypokalemia (Acute) Metabolic alkalosis with respiratory acidosis (Chroni c) On home O2 (Chronic) History of CO (myocardial infarction) (Chronic) Acute blood loss anemia (Acute) Heme + stool (Acute) DVT (deep venous thrombosis) (Resolved) SLE (systemic lupus erythematosus) (C hronic) Iron (Fe) deficiency anemia (Chronic) Chronic respiratory failure with hypoxia and hypercapnia (Chronic) Diverticulosis (Chronic) Deficiency anemia (Acute) MDS (myelodysplastic syndrome) (Chroni c) CHF (congestive heart failure) (Acute) Carpal tunnel syndrome (Acute) Fatigue (Acute) Hearing deficit (Acute) Heart disease (Acute) IBS (irritable bowel syndrome) (Acute) Neuropathy (Acute) Osteopeni a (Acute) Pneumonia (Acute) Stroke (Acute) Vision disturbance (Acute) Surgical History History of left cataract extraction (Resolved) History of carpal tunnel surgery (Acute) History of foot surgery (Acute) History of hysterectomy (Acute) Family History Mother Acute Crohn's disease Father Heart disease Alzheimer disease Social History Smoking Status: Current every day smoker second hand exposure: Yes alcohol intake: never substance use type: does not use caffeine: Yes what type of physical act ivity do you participate in: none Review of Systems Const CONSTITUTIONAL: Positive body ache, daytime sleepiness and fatigue; negative anorexia, chills, fever(s), night sweats, oral thrush, stops b reathing during sleep, weight loss, sleeping in chair, weight loss, weight gain, frequent colds, seasonal allergies, other, headache(s) or orthopnea EETM Ear Nose Throat Mouth: Positive dry mouth in mor [place], itchy eyes, swallowing Difficulty, nasal congestion and nasal discharge; negative hard of hearing, hearing normal, hoarseness, change in vision, eye pain, ear pain, nose bleed, headache(s), mouth pain, post nasal drip, sinus pain, sinus pressure, sore throat or other Cardio Cardiovascular: Negative chest pain, chest pain at rest, chest pain with activity, irregular heart rhythm, edema, shortness of breath when lying down, palpitations, murmur or other Resp Respiratory: Positive as per HPI and cough cough: Positive productive color: Positive thick, clear and yellow; negative shortness of breath , pain with cough, wheezing, chest congestion, chest tightness, pain on inspiration, inhalers, increase use of rescue inhalers, snoring, apnea or other Gastro Gastrointestional: Negative bloody stools, change in appetite, difficulty swallowing, reflux, hematemesis, melena stool, loose stool, constipation or other Genitourinary: Positive nocturia; negative blood in urine, pain with urination or othe r Musc Musculoskeletal: Positive body pain and back pain; negative neck pain or other Skin/Breast Skin/Breast: Positive dry skin; negative itching, rash, unusual bruising, breast lump or other Neuro Jeanie rological: Negative restless legs, confusion, weakness or other Psych Psychocological: Positive abnormal sleep pattern; negative anxiety, thoughts of hurting self/others, hopelessness or other Lymph Lym phatic: Negative easy bleeding, easy bruising, swollen lymph nodes or other Exam Const Constitutional: Positive conversant, cooperative, well nourished, good hygiene, smells of smoke, appears older th an stated age, dyspenic, thin and wearing supplemental oxygen; negative ill appearing Head Head: Positive normocephalic and atraumatic; negative cyanosis of lips/distal nose, frontal sinus tenderness or maxillary sinus tenderness Eyes Eye: Positive clear conjunctiva; negative nystagmus, scleral abnormality or cataract present Ears Ear: Positive external ears normal; negative hard of hearing or hearing normal Nose Nose: Positive external nose normal, septum normal and clear nasal discharge; negative epistaxis or nasal polyp Mouth Mouth: Positive oral mucosae normal, no lesions and posterior oropharyn x is adequate; negative post nasal drip or oral thrush present Mallampati Score: II: Mallampati Score Neck Neck: Positive normal visual inspection, full ROM and trachea midline; negative lymphadenopathy or JVD Chest Wall Chest: Positive symmetric chest movement and increased A/P diameter; negative crepitus or tenderness Resp lung sounds: Positive diminished, wheeze present on forced exhalation, prolon ged expiratory time and normal chronic state of increased work of breathing; negative wheezes, rhonchi, rales, use of accessory muscles or dullness to percussion Cardio Cardiac: Positive regular rate, r egular rhythm, S1 normal and S2 normal; negative murmur, rub or gallop GI GI: Positive normal to inspection and normal bowel sounds; negative distended, ascites or epigastric tenderness Genitourinary : Positive deferred [facility] Musculoskeletal: Positive steady gait, kyphosis and in a wheelchair; negative scoliosis Skin Pulmonary Skin Exam: Positive intact; negative rash, lesion, ulcers or erythema Puls es Pulse: Yes radial pulses present Extremities Extremities: Yes clubbing, No capillary refill normal, Yes cyanosis (Transiently in fingers, but improved through examination), No edema Neuro Neurologic: Yes conversant, Yes no focal neuro deficits, Yes cooperative, Yes normal cognition, Yes normal coordination, Yes normal concentration, Yes understands questions Lymph Lymphatic: No lymphadenopathy Psyc h Appearance: Positive grossly normal Mental Status: Positive mental status grossly normal Mood: Positive congruent mood Affect: Positive normal affect Pulmonary Procedure Smoking Cessation Education: Yes education provided, greater than 10 minutes, expresses understanding, continue to encourage smoking cessation and needs reinforcement Coding Level of Care Code Off vis,est,level 3 Diagnoses Stag e 3 severe COPD by GOLD classification J44.9 PND (post-nasal drip) R09.82 Chronic respiratory failure with hypoxia and hypercapnia J96.11; J96.12 Tobacco dependency F17.200 06/08/17 1349 <Florecita ctronically signed by Sincere Castillo MD> Date Sincere Castillo MD Cosigner Signature: Date (if applicable) CC: Priya Jimenez DO 01-Dec-2015 Chest PA and Lateral Result: Comments: See Note; NOTES: [facility] Imaging Services [address] [place] [id number] Verdana 4d Chest PA and Lateral MR#: [id number] Acct: [id number] Name: KILEY DREW Rep #: [id number] : 1935 F 80 From: Stan Martinez MD PCP: Priya Jimenez DO Status: [facility] ER Study: Chest PA and Lateral Date of Exam: 12/01/15 Exam# [id number] Ordering Dr: Osito Bear MD STUDY: X-R AY CHEST REASON FOR EXAM: Female, 80 years old. Shortness of breath. COPD. TECHNIQUE: PA and lateral views. COMPARISON: 10/21/2015. FINDINGS: Pulmonary hyperinfla tion due to COPD. No confluent infiltrates. No suspicious pulmonary nodules. There is no demonstrated pleural abnormality. Cardiomegaly is unchanged. Normal mediastinum and cathi. Normal visualized pulm onary arteries. Atherosclerotic calcification of the thoracic aorta. No suspicious thoracic aortic aneurysm. No significant abnormality of the thoracic spine. Normal visualized ribs, clavicles, and aureliano ulders. There is no demonstrated abnormality of the visualized soft tissue structures of the upper abdomen. RAD/Chest PA and Lateral IMPRESSION : 1. No acute cardiopulmonary callus. 2. COPD with mild cardiomegaly. 3. No interval changes when compared to 10/21/2015. Electronically Signed: Stan Martinez MD at 14:35 EDT , Service support [phone], CC: Osito Bear MD; Priya Jimenez DO Environmental Science Professor: Signed 21-Oct-2015 Abdomen Complete Result: Comments: See Note; NOTES: [facility] Imaging Services [address] [place] [id number] Verdana 4d Abdomen Complete MR#: [id number] Acct: [id number] Name: JULIA DREW Rep #: [id number] : 1935 F 80 From: Edmundo Zhou MD PCP: Priya Jimenez DO Status: REG CLI Study: Abdomen Complete Date of Exam: 10/21/15 Exam# [id number] Ordering Dr: Devon Jenkins MD STUDY: ABDOMINAL ULTRASOUND REASON FOR EXAM: Female, 80 years old. Unexplained weight loss TECHNIQUE: Transabdominal ultrasound was performed with real-time and static jorge scale imaging. TECH NICAL QUALITY: Limited. Examination limited by bowel gas. COMPARISON: None. FINDINGS: Liver: The liver measures 10.6 cm. There is normal echogenicity of the l iver. The bile ducts are within normal limits. There is hepatic color flow. The direction of portal flow is hepatopetal. There is no demonstrated mass lesion. Gallbladder: The patient is status post cholecystectomy. Common Bile Duct (C.B.D.): The common bile duct measures 3.0 mm. Pancreas: Normal size of the head, body and tail of the pancreas. There is normal echogenicity of the pancreas. Th ere is no demonstrated pancreatic mass or cyst. Spleen: Normal size of the spleen. The spleen measures 7.8 cm. Right Kidney: Normal size of the right kidney. The right kidney measures 11.0 x 6.5 x 4.3 cm. Normal renal cortex. The right cortex measures 1.7 cm. There is a 1.4 cm simple cyst There is no right hydronephrosis, there is a nonobstructing 2 mm stone. Left Kidney: Normal size of the left kidney. The left kidney measures 10.9 x 5.0 x 4.4 cm. Normal renal cortex. The left cortex measures 1.5 cm. 2 simple cysts are noted, the larger measures 2.0 cm, smaller 1.1 cm There is no left hydronephrosis. Aorta: Tapers normally I.V.C.: The IVC is patent. There is no ascites. IMPRESSION: Bilateral simple renal cysts Nonobstructing right nephr olithiasis No suspicious sonographic findings Electronically Signed: Danny Zhou MD at 14:48 EDT Tel , Service support [phone], CC: Kath Jimenez DO; Devon Jenkins Environmental Science Professor: Signed 21-Oct-2015 Chest PA and Lateral Result: Comments: See Note; NOTES: [facility] Imaging Services [address] [place] [address] Verdana 4d Chest PA and Lateral MR#: [id number] Acct: [id number] Name: KILEY DREW Rep #: [id number] : 1935 F 80 From: Edmundo Zhou MD PCP: Priya Jimenez DO Status: REG CLI Study: Chest PA and Lateral Date of Exam: 10/21/15 Exam# [id number] Ordering Dr: Landon Jenkins MD STUDY: X-RAY CHEST REASON FOR EXAM: Female, 80 years old. Weight loss, anemia, shortness of breath TECHNIQUE: PA and lateral views of the chest. COMPARISON: 03/29/15 FINDINGS: There is hyperinflation of the lungs consistent with chronic obstructive lung disease (COPD). Chronic interstitial changes, no superimposed acute pulmonary process. N ormal size heart. Normal mediastinum and cathi. Normal visualized pulmonary arteries. There is atherosclerotic calcification of the aortic arch with tortuosity. There are diffuse degenerative changes of the visualized thoracic spine. Normal visualized ribs, clavicles, and shoulders. There is no demonstrated abnormality of the visualized soft tissue structures of the upper abdomen. IMPRESSION: COPD with chronic interstitial changes, no superimposed acute pulmonary process Electronically Signed: Danny Zhou MD at 11:51 EDT Tel , Service support [phone], RAD/Chest PA and Lateral IMPRESSION: COPD with chronic interstitial changes, no superimposed acute pulmonary process Electronically Signed: Danny Zhou MD at 11:51 EDT Tel , Service support [phone], CC: Priya Jimenez DO; Devon Jenkins Environmental Science Professor: Signed 03-Oct-2015 Venous Duplex Lower Extremity Result: Comments: See Note; NOTES: [facility] Cardiovascular Services [address] [place] [address] Venous Duplex US - Joel Extrem 10/03/15 1330 MR#: [id number] Acct: [id number] Name: KILEY DREW Rep #: [id number] : 1935 80 From: Tray Bonds MD Attending Dr: OUT OF TOWN DOCTOR Status: REG CLI Ordering Dr: PINA MCMILLAN Date: 10/03/15 Location: [facility] Sex : F C Admitted: Reason For Study: edema RIGHT LEFT GSV is normal. GSV is normal. CFV is compressible, spontaneous, phasic, CFV is compressible, spontaneous, phasic, competent and demonstra clare normal competent, and demonstrates normal augmentation. augmentation. FV is compressible, spontaneous, phasic, FV is compressible, spontaneous, phasic , competent and demonstrates normal competen t and demonstrates normal augmentation. augmentation. POP V is compressible, spontaneous, phasic, POP V is compressible, spontaneous, phasic, competent and demonstrates normal competent and demonstr ates normal augmentation. augmentation. PTV is compressible. T/P Trunk is compressible. RT PerV is compressible. PTV is compressible. T/P Trunk is dilated and noncompressible. LT PerV is compressibl e. Procedure Exam performed in department. The exam was diagnostic. A preliminary report was called and/or faxed to Dr. Jimenez. Unable to contact Dr Mcmillan. Multiple attempts made. Pt to go to Dr Ning Singh office. Interpretation Summary Acute deep vein thrombosis is noted in the right tibio-peroneal trunk. The remainder of the right lower extremity deep venous system is patent and compress sible. Deep veins of the left lower extremity are patent and compressible segmentally. There is no evidence of left lower extremity deep vein thrombosis. Valvular competence appears intact within the proximal deep venous systems bilaterally. The greater saphenous veins appear bilaterally patent and compressible segmentally. Ordering Physician: Pina Mcmillan Referring Physician: Dr. Jimenez/Dr. Barboza/Dr. Jenkins Performed By: Víctor Gauthier, RVT 10/03/151932 Date Tray Bonds MD CC: PINAZINA MCMILLAN; Priya Jimenez DO Date Dictated: 10/03/15 1330 Date T ranscribed: 10/03/151932 Environmental Science Professor: Signed 09-Sep-2015 Echocardiogram Complete Result: Comments: See Note; NOTES: [facility] Cardiovascular Services [address] [place] [address] Echo Complete 09/09/15 1355 MR#: [id number] Acct: [id number] Name: KILEY WADE Rep #: [id number] : 1935 79 From: Kaden Barboza MD Attending Dr: Tamra AVILA,Kaden Status: REG CLI Ordering Dr: Kaden Barboza MD Date: 09/09/15 Location: [facility] Sex: F C Admitted: Version 2 Reason For Study: SOB, CHF Procedure This was a 2D Doppler, Color Flow transthoracic echocardiogram. Exam performed in department. Left Ventricle Normal LV size. Left ventricular syst olic function is lower limits of normal. The estimated ejection fraction is 50 %. Infero-Basal: Akinetic. Basal inferoseptal: Hypokinetic. Right Ventricle Normal RV size. Normal systolic function. Atria The left atrium is mildly enlarged. Normal right atrium. Mitral Valve Normal mitral valve. Mild (1+) eccentric mitral valve insufficiency. Tricuspid Valve Normal tricuspid valve. Mild to m oderate (1-2+) tricuspid valve insufficiency. Pulmonary artery systolic pressure is 44 mmHg. Aortic Valve Normal aortic valve. Trisinus/trileaflet aortic valve. Mild (1+) aortic valve insufficiency . Pulmonic Valve Normal pulmonic valve. Great Vessels Normal aortic root. The pulmonary artery is normal size. Normal inferior vena cava. Pericardium/Pleural No pericardial effusion. MMode/2D Measurements AND Calculations LVIDd: 5.5 cm IVSd: 1.2 cm LVOT diam: 2.0 cm LVIDs: 3.8 cm LVPWd: 1.1 cm LVOT area: 3.2 cm2 RVDd: 3.8 cm FS: 31.1 % Ao root diam: 3.3 cm LAV(MOD-bp): 82.3 ml LA A4 area: 24.7 cm2 LA dimension: 4.8 cm LAV(MOD-bp) Indexed: 51.2 ml/m2 LAV(MOD- sp2): 76.1 ml LAV(MOD-sp4): 77.5 ml ___ RA A4 area: 16.1 cm2 Doppler Measurements AND Calculations MV E max amber: 90.5 cm/sec Lat Peak E' Amber: 2.6 cm/sec Med Pe ak E' Amber: 3.9 cm/sec MV A max amber: 97.9 cm/sec E/E' lat: 34.4 E/E' med: 23.2 MV E/A: 0.92 Ao V2 max: 225.4 cm/sec AI max amber: 407.3 cm/sec LV V1 max: 125.6 cm/sec Ao max P.3 mmHg AI max P.4 mmHg LV V1 max P.3 mmHg Ao V2 mean: 149.1 cm/sec AI dec slope: 235.8 cm/sec2 LV V1 mean P.7 mmHg Ao mean P.1 mmHg AI P1/2t: 505.8 msec LV V1 mean: 91.4 cm/sec Ao V2 VTI: 47.3 cm LV V1 VTI: 28.4 cm EDGAR(I,D): 1.9 cm2 EDGAR(V,D): 1.8 cm2 SV(LVOT): 91.6 ml PA V2 max: 128.2 cm/sec TR max amber: 314.9 cm/sec TR max P.7 mmHg Interpretation Summary Normal LV size. Left ventricular systolic function is lower limits of normal. The estimated ejection fraction is 50 %. Mild (1+) eccentric mitral valve insufficiency. Mild to moderate (1-2+) tricuspid valve insufficiency. Mild (1+) aortic valve insufficiency. Com pared to prior study, there is no significant change. Ordering Physician: Kaden Barboza Physician: Priya Jimenez Performed By: Jamaica Chan, RDCS, RVT 09/09/15 4617 Date Kaden Barboza MD CC: Priya Jimenez DO Date Dictated: 09/09/15 1355 Date Transcribed: 09/09/15 1522 Environmental Science Professor: Signed 23-Aug-2015 History and Physical Exam Result: Comments: See Note; NOTES: [facility] Medical Records Department [address] [place] [address] History and Physical 08/23/151836 MR#: [id number] Acct: [id number] Name: KILEY DREW Rep #: [id number] : 1935 79 From: Stephen Aquino MD PCP: Priya Jimenez DO Status: REG ER Y Location: ED History of Present Illness Date of Admission: 08/23/15 ief Complaint: anemia The patient is a very pleasant 79 y/o f Who is a patient of Dr. Dr. Barboza and Dr. Priya Jimenez. Patient has had a previous stent placement in 2003 and has been on aspirin and brillianta. There is also a history of myocardial infarction in September 2013. She was treated at [facility] where a stent was placed by Dr. Paris. During the procedure she experienced acute respiratory failure and there was concern for papillary muscle rupture. However an echocardiogram at that time only demonstrated severe mitral regurgitation but no evidence of papillary muscle rupture . There was a possible chordal rupture however. Patient was intubated requiring vasopressors for aortic balloon pump and [place] catheter. He was eventually discharged from the hospital without furt her procedures. There is a recent history of a fall in March 2015. At that time she injured her right knee and later was thought to have experienced a fracture of the right hip which healed spont aneously without surgical intervention. She is now using a walker to get around the house she lives by herself. Last month she states she had a blood transfusion. She appeared in Dr. Barboza's office today for a routine visit. Hemoglobin was found to be 6.7 hematocrit 24.7 with a white count of 7.9. Platelet count was 442. There is no history of melena hematemesis epistaxis or hematuria. She has been feeling more short of breath on exertion in recent days or perhaps the last [address] Barboza was concerned about the anemia and referred her to the emergency department for evaluation. In the ED vital signs included a temperature of 97.2 F pulse 76 blood pressure 108/48 saturations 95% on 3 L. The patient has chronic respiratory failure and is on oxygen at home. Unfortunately she has restarted smoking about one half pack of cigarettes per day or less. She is admitted to observation at this time cardiac telemetry to receive 2 units of packed cells to restore normal hemogram. Past Medical History Past Medical History (Chronic Problems): Chronic Problems Anemia (Chronic) CAD (coronary artery disease) (Chronic) Chronic obstructive pulmonary disease (Chronic) With chr onic respiratory failure on 3 L oxygen [id number] history smoking Chronic respiratory failure (Chronic) Coronary atherosclerosis of [place] coronary artery (Chronic) Status post PTCA and stent 3 drug-eluting stent LCX occluded RCA Diverticulitis of colon (without mention of hemorrhage) (Chronic) HLD (hyperlipidemia) (Chronic) HTN (hypertension) (Chronic) Personal history of transient isch emic attack (TIA) 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 (Chronic) Allergies alendronate sodium [From Fosamax] Adverse Reaction (Verified 08/23/15 17:04) Other gastroenteritis sulfame thoxazole [From Bactrim] Adverse Reaction (Verified 08/23/15 17:04) Other thrush trimethoprim [From Bactrim] Adverse Reaction (Verified 08/23/15 17:04) Other thrush Home Medications: Ambulator y Orders Medication Instructions Recorded Atorvastatin Calcium [Lipitor] 80 mg PO QHS 07/06/15 Budesonide/Formoterol 160/4.5 2 puff INHALATION BID 07/06/15 [Symbicort 160/4.5 Mcg Inhaler (SP) ] Carvedilol [Coreg (Beta Hue)] 3.125 mg PO BID 07/06/15 Furosemide [Lasix] 40 mg PO DAILY 07/06/15 Hydroxychloroquine [Plaquenil] 200 mg PO BIDCM 07/06/15 Nitroglycerin [Nitrostat] 0.4 mg SUBLINGUAL Q5M PRN 07/06/15 Omeprazole [Prilosec] 20 mg PO DAILY 07/06/15 Oxycodone HCl/Acetaminophen 1 tablet PO TID 07/06/15 [Percocet 5-325] Potassium Chloride [K-Dur] 20 meq PO DAILY 07/05 Pregabalin [Lyrica] 75 mg PO TID 07/06/15 Aclidinium [place] [Tudorza 1 puff IH BID 08/23/15 Pressair] Amlodipine [Norvasc] 2.5 mg PO DAILY 08/23/15 Aspirin [Aspirin, Baby] 81 mg PO DAILY@ 0800 08/23/15 Ticagrelor [Brilinta] 90 mg PO BID 08/23/15 Surgical History: - 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 PROP ATTENDANT History: No pertinent PROP ATTENDANT history Lives: Alone Smoking Status: Young nt every day smoker Tobacco Use: Cigarettes Alcohol: None Drugs: None - *Family History Maternal History Items: - - Mother w/ history of crohns. Paternal History Items: Heart Disease, Hypertension Review of Systems Constitutional: Denies: Chills, Fever, Weight Change HEENT: Denies: Head Aches, Sinus Congestion, Sinus Drainage Cardiovascular: Reports: - - No chest pain Shortness of breath on exertion. Denies: Chest Pain , Palpitations Respiratory: Denies: Cough, Shortness of breath at rest, Sputum production Gastrointestinal: Denies: Abdominal Pain, Nausea, Vomiting Genitour inary: Denies: Dysuria Musculoskeletal: Denies: Joint Pain, Joint Tenderness Skin: Denies: Rash, Wounds Neurological: Denies: Numbness, Tingling, Focal weakness Psychiatric: Denies: Anxiety, Depress ion, Homicidal Ideations, Suicidal Ideations Hematologic/ Lymphatic: Denies: Easy Bruising, Easy Bleeding VTE Information - Inpt Only VTE Present on Admission: No VTE Mechan Device Prophylaxis: Non e VTE Pharm Prophylaxis ordered?: No Subjective: This is a white female who is in no distres awake alert oriented. - Physical Exam General: Alert, Oriented x3, Cooperative HEENT: Atraumatic, PERR LA, EOMI, Normocephalic Neck: Supple, No JVD, Negative Carotid Bruits Lungs: Clear to auscultation, Normal air movement Cardiovascular: Regular rate, No murmurs Abdomen: Bowel Sounds Present, Soft, Non Tender Extremities: No edema, Capillary Refill Less than 3 Seconds, - - increased ankle edema Skin: No rashes, No breakdown Musculoskeletal: No Tenderness to Palpation of Joints or Extremities N eurological: Cranial nerves II-XII grossly intact Psych/Mental Status: Normal Affect, Appropriate Vital Signs Temp Pulse Resp BP Pulse Ox 97.2 F 66 21 105/58 95 08/23/15 16:49 08/23/15 17:00 17:00 08/23/15 17:00 08/23/15 17:00 Oxygen Flow Rate 3 Oxygen Delivery Method Nasal Cannula Weight: 135 lb Body Mass Index (BMI) 24.7 Microbiology Past 72 Hours 08/23/15 17:15 Stool O ccult Blood (YNES) - Final Stool Laboratory Tests Past 24 Hrs 08/23/15 08/23/15 08/23/15 17:15 17:30 17:58 PT 13.0 INR 1.0 Blood Type Cancelled Pending Antibody Screen Cancelled Pending Crossmatch See Detail See Detail Assessment/Plan Problem list * Anemia worrisome for blood loss anemia MCV is 72.2 * Coronary artery disease which is stable with placement of stents * Kevyn nt is on aspirin and brillanta * Chronic respiratory failure on oxygen at home at 3 L * Continued tobacco abuse disorder * History of hypertension * History of hyperlipidemia * History of TIA * Pr ior history of epistaxis Treatment plan/medical decision making * Admit to outpatient observation on telemetry * Complete troponin I marker protocol * 2 units of packed cells were typed and crossm atched in the ED and will be transfused * Follow blood pressure * Stool for occult blood * Serum iron and iron binding capacity * Continue Oxygen 3 liters * Patient is not a candidate of pharmacolo gic prophylaxis will use SCD 08/23/15 1858 <Electronically signed by Stephen Aquino MD> Date Stephen Aquino MD Cosigner Signatu re (if applicable): Date CC: Stephen Aquino MD; Priya Jimenez DO Signed 13-Aug-2015 ELECTROCARDIOGRAM, COMPLETE (ECG) (82004) Comments: NSR NO ACUTE CHG Result: [MEASUREMENTS ANALYSIS] Date of Test: 08/13/2015 14:49:40; Heart Rate: 70; MD Interval: 130; QRS: 116; QT Interval: 396; Corrected QT Interval (QTc): 413; P Wave [place]: 51; QRS Wave [place]: -7; T Wave [place] : 44; Blood Pressure: 140/78 [ECG DIAGNOSTIC STATEMENTS] Date of Test: 08/13/2015 14:49:40; Summary: Sinus Rhythm WITHIN NORMAL LIMITS 03-May-2015 Pelvis 1 or 2 Views Result: Comments: See Note; NOTES: [facility] Imaging Services [address] [place] [address] Verdana 4d Pelvis 1 or 2 Views MR#: [id number] Acct: [id number] Name: John DREW Rep #: [id number] : 1935 F 79 From: Kit Castillo MD PCP: Priya Jimenez DO Status: REG CLI Study: Pelvis 1 or 2 Views Date of Exam: 05/03/15 Exam# [id number] Ordering Dr: Priya Yepez DO STUDY: X-RAY - PELVIS REASON FOR EXAM: Female, 79 years old. Right hip pain following a recent fall. TECHNIQUE: One view of the pelvis was obtained. COMPARISON: None. FINDINGS: There is a non-specific bowel gas pattern. Soft tissue swelling overlying the right hip joint. Normal bilateral iliac wings, sacroiliac joints and visualized sacrum. There is evidence of healing fractures of the medial aspect of the left superior and inferior pubic rami. Normal pubic symphysis. Normal ischial tuberosities. Subacute fracture with healing of the right intertrochanteric region. There is cephalic migration of the distal fracture fragment. Normal right acetabulum. There is moderate articular joint space narrowing of the right hip. Nor mal visualized left femoral head. Normal left acetabulum. There is moderate articular joint space narrowing of the left hip. IMPRESSION: Subacute healing fractur e of the right intertrochanteric region with a cephalic migration of the distal fracture fragment. Healing fractures involving the medial aspect of the left superior and inferior pubic rami. Electr onically Signed: Kit Castillo MD at 14:00 EST Tel [phone], Service support [phone], RAD/Pelvis 1 or 2 Views IMPRESSION: Subacute he aling fracture of the right intertrochanteric region with a cephalic migration of the distal fracture fragment. Healing fractures involving the medial aspect of the left superior and inferior pubic r ami. Electronically Signed: Kit Castillo MD at 14:00 EST Tel [phone], Service support [phone], CC: Priya Jimenez DO Environmental Science Professor: Signed 03-May-2015 Hip min 2 Views Result: Comments: See Note; NOTES: [facility] Imaging Services [address] [place] [address] Verdajean 4d Hip min 2 Views MR#: [id number] Acct: [id number] Name: KILEY DREW Rep #: [id number] : 1935 F 79 From: Kit Castillo MD PCP: Priya Jimenez DO Status: REG CLI Study: Hip min 2 Views Date of Exam: 05/03/15 Exam# [id number] Ordering Dr: Adarsh Jimenez DO STUDY: X-RAY - RIGHT HIP REASON FOR EXAM: Female, 79 years old. Right hip pain following a fall. TECHNIQUE: 2 views of the hip. COMPARISON: None. FINDINGS: There is evidence of a subacute fracture with partial healing involving the intertrochanteric region of the right hip there are there is cephalic migration of the distal fracture fragment. Normal acetabulum. There is moderate articular joint space narrowing. I suspect a healing fracture of the medial aspect of the left superior pubic ramus. Vascular calcification. IMPRESSION: A right intratrochanteric fracture with a cephalic migration of the distal fracture fragment. Healing fracture involving the medial aspect of the left superior pubic ramus. Electronically Signed: Kit Castillo MD at 13:58 EST Tel [phone], Service support [phone], RAD/Hip min 2 Views IMPRESSION: A right intratrochanteric fracture with a cephalic migration of the distal fracture fragment. Healing fracture involving the medial aspect of the left superior pubic ramus. Electronically Signed: Kit Castillo MD at 13:58 EST Tel [phone], Service support [phone], CC: Priya Jimenez DO Environmental Science Professor: Signed 03-Apr-2015 Lower Ext Joint Only (Routine) Result: Comments: See Note; NOTES: [facility] Imaging Services [address] [place] [address] Verdana 4d Lower Ext Joint Only (Routine) MR#: [id number] Acct: [id number] Na me: KILEY DREW Rep #: [id number] : 1935 F 79 From: César Conley MD PCP: Priya Jimenez DO Status: REG CLI Study: Lower Ext Joint Only (Routine) Date of Exam: 04/03/15 Exam# [id number] Ordering Dr: Priya Jimenez DO STUDY: MRI RIGHT KNEE REASON FOR EXAM: Female, 79 years old. Quadriceps strain. Patient fell onto the right knee on January 2015. Pain going up to the hip TECHN IQUE: Standardized fat and water weighted pulse sequences were obtained in all 3 orthogonal planes. COMPARISON: Prior x-rays of the right knee on 02-14-15 FINDI NGS: There is intrasubstance degeneration of the posterior horn of the medial meniscus without discrete meniscal tear. There is meniscal extrusion. There is diffuse, greater than 50% thickness articu lar cartilage loss of the medial femorotibial compartment. Normal medial femoral condyle and tibial plateau. Normal medial collateral ligamentous complex (MCL). Normal distal semimembranosus, terence lis and semitendinosus tendons. There is intrasubstance degeneration of the anterior horn of the lateral meniscus without discrete meniscal tear. Normal hyaline cartilage of the lateral femorotibial compartment. Normal lateral femoral condyle and tibial plateau. Normal proximal tibiofibular articulation. Normal lateral collateral (fibular) ligament. Normal popliteus tendon. N ormal biceps femoris tendon. Normal anterior cruciate ligament (ACL). Normal posterior cruciate ligament (PCL). Normal congruent patellofemoral articulation. Normal hyaline cartilage of the barragan lofemoral compartment. Normal medial and lateral patellar retinaculum. Normal quadriceps tendon. Normal patellar tendon. Normal Hoffa's fat pad. There is no joint effusion. There is subcutaneous soft tissue edema. There is a low-grade myofascial strain of the vastus lateralis muscle (axial T2 series 5 image one). The otherwise visualized osseous structures are unremarkable. IMPRESSION: Intrasubstance degeneration of the medial and lateral menisci without tear. Medial compartment osteoarthritis. Low-grade myofascial strain of the vastus lateralis m uscle. Electronically Signed: César Conley MD, FACR at 13:32 EST , Service support [phone], CC: Priya Jimenez DO Environmental Science Professor: Signed 14-Feb-2015 Emergency Department Summary Result: Comments: See Note; NOTES: [facility] Medical Records Department [address] [place] [address] Emergency Department Summary 02/14/152013 MR#: [id number] Acct: [id number] Name: KILEY DREW Rep #: [id number] : 1935 79 From: Cash Mckenzie MD PCP: Priya Jimenez DO Status: REG ER - ER Visit Summary Date of Service: 02/14/15 Chief Complaint: Right k nee pain status post fall. History of Present Illness: The patient is a 79 F who arrived by ambulance after fall from chair onto right knee. She complains of pain knee. Nursing protocol was initiated and patient had an x-ray of her knee. She denies any paresthesia, anesthesia motor weakness. She is on no anticoagulant. Review of Systems: She did not attempt to ambulate after the fall. She denies prior history of knee injury or problems. Physical Examination: Vital signs are unremarkable. She is not hypoxic. Examination the right knee reveals no obvious swelling compared to left. She is able t o extend 280 . Devora's test negative. Janet's test negative. She complains of pain with varus and [place] stress seen but there is no laxity. There is no effusion and the patella is not ballotable. She does have joint line tenderness. Test Results: Review x-ray of the knee was obtained and interpreted by me as negative. Emergency Department Course: Percocet tablet for pain Treatment Plan: D ischarge home with appropriate home going instructions Disposition: Discharged to home Impression: Right knee pain status post fall (contusion) ED Disposition - Plan for ED Patient: Dispositio n: Home or Assisted Living Chief Complaint: Lower Extremity Injury Instructions: ED Contusion, Lower Extremity Referrals: Priya Jimenez, [Primary Care Provider] - As Needed What to do if yo u have Problems For any increased pain, shortness of breath, bleeding, nausea or vomiting, chest pain, or any unexpected problems, contact your doctor. Call [facility] ([phone]) or report to the closest Emergency Room. Call 911 if necessary. 02/14/152016 <Electronically signed by Cash Mckenzie MD> Date Cash Mckenzie MD Cosigner Signature (If Indicated): Date CC: Priya Jimenez DO 14-Feb-2015 Knee 4 or More Views Result: Comments: See Note; NOTES: [facility] Imaging Services [address] [place] [address] [place] [address] Verdana 4d Knee 4 or More Views MR#: [id number] Acct: [id number] Name: KILEY DREW Rep #: [id number] : 1935 F 79 From: Safia Anton MD PCP: Priya Jimenez DO Status: DEP ER Study: Knee 4 or More Views Date of Exam: 02/14/15 Exam# [id number] Ordering Dr: Marcella Mckenzie MD STUDY: X-RAY - RIGHT KNEE REASON FOR EXAM: Female, 79 years old. The patient fell hit the right knee. Right knee pain TECHNIQUE: view(s) of the knee. COMPARISON: None. FINDINGS: Normal visualized distal femur. Normal visualized proximal tibia and fibula. Normal proximal tibiofibular articulation. There is mild degenerative arthrosis of the med ial femorotibial compartment. There is mild degenerative arthrosis of the lateral femorotibial compartment. There is mild degenerative arthrosis of the patellofemoral articulation. The soft tissue structures are unremarkable. IMPRESSION: Degenerative arthrosis. Electronically Signed: Morris Anton MD at 9:19 EDT Tel , Service s upport [phone], RAD/Knee 4 or More Views IMPRESSION: Degenerative arthrosis. Electronically Signed: Morris Anton MD at 9:19 EDT Tel , Service support [phone], CC: Priya Jimenez DO; Cash Mckenzie MD Environmental Science Professor: Signed 29-Jan-2015 Pulmonary Function Report Comp Result: Comments: See Note; NOTES: [facility] Pulmonary Services/Neurology [address] [place] [address] Pulmonary Function Test (Comp) MR#: [id number] Acct: [id number] Name: KILEY WADE Rep #: [id number] : 1935 79 From: iSncere Castillo MD Referring Dr: Sincere Castillo MD Status: REG CLI Ordering Dr: Sincere Castillo MD Date: 01/28/15 Location: [facility] Sex: F C DATE OF S ERVICE: 01/28/2015 BRIEF HISTORY OF PRESENT ILLNESS: The patient is a 79-year-old female, currently under the care of myself, who presents for a complete pulmonary function test secondary to a diagnosis of COPD. Respiratory therapist reported good patient effort and reproducible results. INTERPRETATION: Forced expiration spirometry demonstrates a severe large airways obstructive vent ilatory defect. There is no significant response to bronchodilators noted. Spirograms are of good quality and do not plateau indicating slowing emptying areas of the lung. The respiratory flow volume loop shows decreased expiratory flow rates at all lung volumes consistent with large airways obstruction. Lung volumes by body plethysmography show total lung capacity at the upper limit of normal at 4.82 liters, 111% of predicted. However, FRC and RV are significantly elevated at 137% and 156%, respectively. Diffusion capacity by single breath carbon monoxide is severely reduced at 44% of pr edicted. Airway resistance is elevated. This study was compared to a previous study completed on April 13, 2014, which shows a significant improvement in patient's air trapping with a decrease in total lung capacity by 27% and a decrease in residual volume by 38%. IMPRESSION: Irreversible severe large airways obstructive ventilatory defect with a symmetric reduction in diffusion capacity re sulting in air trapping and consistent with patient's diagnosis of chronic obstructive pulmonary disease. There has been an improvement since March 2014. SNICERE CASTILLO MD T: NTS JOB: [id number] 01/29/15 1438 <Electronically signed by Sincere Castillo MD> Date Sincere Castillo MD CC: Sincere Castillo MD; Priya Jimenez DO Date Di ctated: 01/29/15801 Date Transcribed: 01/29/15801 Environmental Science Professor: Signed 10-Oct-2014 Spirometry (25055) Result: 10-Oct-2014 EKG (49390) Comments: sinus jg no acute chg Result: [MEASUREMENTS ANALYSIS] Date of Test: 10/10/2014 12:14:56; Heart Rate: 45; MD Interval: 154; QRS: 114; QT Interval: 482; Corrected QT Interval (QTc): 456; P Wave [place]: 57; QRS Wave [place]: -22; T Wave Axi s: -1; Blood Pressure: 120/62 [ECG DIAGNOSTIC STATEMENTS] Date of Test: 10/10/2014 12:14:56; Summary: Marked sinus Bradycardia - Nonspecific T-abnormality. ABNORMAL 26-Jul-2014 History and Physical Exam Result: Comments: See Note; NOTES: [facility] Medical Records Department [address] [place] [address] History and Physical 07/26/149 MR#: [id number] Acct: [id number] Name: KILEY BOND Rep #: [id number] : 1935 78 From: Selma Patterson PCP: Priya Jimenez DO Status: REG ER Y Location: ED Problem List (1) Chronic obstructive pulmonary disease Status: Chr onic Comment: With chronic respiratory failure on 3 L oxygen [id number] history smoking (2) HLD (hyperlipidemia) Status: Chronic (3) HTN (hypertension) Status: Chronic (4) CAD (coronary ar rajani disease) Status: Chronic (5) Anemia Status: Chronic (6) Chronic respiratory failure Status: Chronic History of Present Illness Date of Admission: 07/26/14 Chief Complaint: Worsened back pain The patient is a 78 y/o F w/ PMHx: COPD w/ chronic respiratory failure, Hypertension, Hyperlipidemia, CAD, GERD, TIA, Anemia, History of GI bleed who presents to the [facility] ED on 07/26/14 w/ complai nt of acute severe pain in the tailbone radiating to BL LE, R>L x 1-2 days with difficult ambulating with noted history of ongoing pain x 1 month, noted to have been placed on regimen includin g initially steroids and pain medications without improvement. She noted seeing also a chiropractor several days ago prior to admission. Patient noted that the initial onset was when she increased her walking regimen. Patient denies loss of bowel or bladder control w/ onset of back pain. In the ED work-up included T 100.1, HR 74, 130/75, 16, 98% on 3L, CBC w/ WBC 10.2, Hgb 9.7, Plts 250 w/ L shift, chemistry w/ K+ 3.1, BUN/Cr 21/1.1. Patient administered fentanyle, dilaudid and zofran in the ED with only mild improvement. Past Medical History Past Medical History (Chronic Problems): Chronic Problems Anemia (Chronic) CAD (coronary artery disease) (Chronic) Chronic respiratory failure (Chronic) Anemia due to GI blood loss (Chronic) Chronic obstructive pulmonary disease (Chronic) With chronic respiratory failure on 3 L oxygen [id number]-gphs history smoking Coronary atherosclerosis of [place] coronary artery (Chronic) Status post PTCA and stent 09/2012 drug-eluting stent LCX occluded R CA Diverticulitis of colon (without mention of hemorrhage) (Chronic) HLD (hyperlipidemia) (Chronic) HTN (hypertension) (Chronic) Personal history of transient ischemic attack (TIA) 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 (Chronic) Allergies alendronate sodium [From Fosamax] Allergy (Verified 09/28/13 11:38) Unknown sulfamethoxazole [From Bactrim] Allergy (Verified 09/28/13 11:38) Unknown trimethoprim [From Bactrim] Allergy (Verified 09/28/13 11:38) Unknown Home Medications: Ambulatory Orders Medication Instructions Recorded Aspirin [Aspirin, Baby] 81 mg PO DAILY@080 0 09/28/13 Omeprazole [Prilosec] 20 mg PO DAILY 09/28/13 TraMADol [Ultram] 100 mg PO Q4H PRN PRN 09/28/13 Atorvastatin Calcium [Lipitor] 80 mg PO QHS 05/11/14 Carvedilol [Coreg] 3.125 mg PO BID 05/11/14 Furosemide [Lasix] 60 mg PO DAILY 05/11/14 Hydroxychloroquine [Plaquenil] 200 mg PO BIDCM 05/11/14 Nitroglycerin [Nitrostat] 0.4 mg SUBLINGUAL Q5M PRN 05/11/14 Potassium Chloride [K-Dur ] 20 meq PO DAILY 05/11/14 Pregabalin [Lyrica] 75 mg PO TID 05/11/14 Ticagrelor [Brilinta] 90 mg PO BID 05/11/14 Iron Poly/Vit C [Niferex-150] 150 mg PO DAILYCM #30 capsule 05/12/14 Surgical H istory: - - Hysterectomy, PCI x 1, tonsillectomy, basal cell CA removal, cholecystectomy, appendectomy, BL carpal tunnel repair. 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 PROP ATTENDANT History: No pertinent G YN history Lives: Alone Smoking Status: Former smoker - 2-3 ppd since 17 years old, quit 1 year prior. Tobacco Use: Non-smoker Alcohol: None Drugs: None - *Family History Maternal History I tems: - - Mother w/ history of crohns. Paternal History Items: Heart Disease, Hypertension Review of Systems Constitutional: Reports: Weakness. Denies: Chills, Fever, Weight Change HEENT: Den ies: Head Aches, Sinus Congestion, Sinus Drainage Cardiovascular: Denies: Chest Pain, Palpitations Respiratory: Denies: Cough, Shortness of breath at rest, Sputum production Gastrointestinal: Denies: Abdominal Pain, Nausea, Vomiting Genitourinary: Denies: Dysuria Musculoskeletal: Reports: Back Pain, Leg Pain. Denies: Joint Pain, Joint Tenderness Skin: Denies: Rash, Wounds Neurological: Denies: Numbness, Tingling, Focal weakness Psychiatric: Denies: Anxiety, Depression, Homicidal Ideations, Suicidal Ideations Hematologic/ Lymphatic: Denies: Easy Bruising, Easy Bleeding VTE Information - Inpt Only VTE Present on Admission: No VTE Mechan Device Prophylaxis: SCD's VTE Pharm Prophylaxis ordered?: Yes Subjective: Laying in the ED bed, NAD unless moves, then notes shooting back in back into her leg. Objective: Physical Examination: General: awake, alert, oriented x 3 and cooperative, seated upright in ED bed in no apparent distress. Skin: normal color, turgor, no icterus, cyanosi s. HEENT: AT/NC, EOMI, PERRLA, MMM, no carotid bruits or JVD noted. Lungs: Diminished BS throughout, > BL bases, moderate effort, no rales, ronchi or wheezing. Heart: Regular rate and rhythm ; no gallop, rub audible. Abdomen: soft, NTTP, ND, normal BS, no HSM. Extremities: no cyanosis, clubbing, or edema, severe pain elicited lumbar spine w/ manipulation of LE, weight, + SLR, lumbar TTP BL. Neurological: patient awake, alert, oriented x 3; cognitive function intact; pupils equally reactive to light and accomodation; cranial nerves II-XII normal, moving all 4 extremities but difficult w/ back pain w/ pain into legs as noted, strength severely decreased given severe acute back pain. Psychiatric: affect appears normal, no acute evidence of depressive or anxiety feelings. - Physic al Exam Vital Signs Temp Pulse Resp BP Pulse Ox 100.1 F 74 16 130/75 98 07/26/14 20:53 07/26/14 20:53 07/26/14 20:53 07/26/14 20:53 07/26/14 20:53 Oxygen Flow Rate 3 Oxygen Delivery Metho d Nasal Cannula Weight: 142 lb Body Mass Index (BMI) 25.9 Laboratory Tests Past 24 Hrs 07/26/14 21:30 WBC 10.2 RBC 3.57 L Hgb 9.7 L Hct 31.9 L MCV 89.4 MCH 27.2 MCHC 30.4 L R DW 15.7 H RDW Differential 50.8 H Plt Count 250 MPV 9.2 Immature Gran % (Auto) 0.300 Neut % (Auto) 78.0 H Lymph % (Auto) 7.8 L Ida % (Auto) 11.3 H Eos % (Auto) 2.3 Baso % (Auto) 0.3 Absolute Neuts (auto) 7.9 H Absolute Lymphs (auto) 0.79 L Total Counted Not Reportable Sodium 138 Potassium 3.1 L Chloride 98 Carbon Dioxide 34.0 H Anion Gap 6 BUN 21 H Creatinine 1.1 H Estim Creat Clear Calc 33.87 Est GFR (MDRD) Af Amer Not Reportable Est GFR (MDRD) Non-Af Not Reportable BUN/Creatinine Ratio 19.1 Glucose 102 Calcium 8.3 L Assessment/Plan The patie nt is a 78 y/o F w/ PMHx: COPD w/ chronic respiratory failure, Hypertension, Hyperlipidemia, CAD, GERD, TIA, Anemia, History of GI bleed who presents to the [facility] ED on 07/26/14 w/ complaint of acute elan re pain in the tailbone radiating to BL LE, R>L x 1-2 days with difficult ambulating with noted history of ongoing pain x 1 month, noted to have been placed on regimen including initially ster oids and pain medications without improvement. (1) Acute Intractable Back Pain w/ Radiculopathy and Weakness: Will admit to [facility], maintain on fall precautions, frequent positioning, po/IV pain regimen, anti- emetics, bowel regimen, obtain MRI lumbar spine to further assess etiology for pain given noted work-up with PCP already outpatient including prior plain films. Will continue lyrica regimen. Louie funk consult PT and OT for evaluation. (2) COPD exacerbation w/ Chronic Respiratory Failure: Will maintain on oxygen with wean as tolerated to home regimen 3L, continue ATC duonebs, PRN albuterol, HOB, IS parameters. (3) CAD: PCI x 1. Will continue home regimen asa, brilinta, statin, BB. (4) Hypertension: Continue home regimen including coreg, lasix, PRN hydralazine. (5) Hyperlipidemia: Continu e home statin regimen. (6) History of TIA: Continue asa, statin, HTN regimen. (7) GERD: Continue home prilosec regimen. (8) Chronic normocytic anemia: Admission Hgb 9.7, improved from prior noted 8.8, continue Fe supplementation. (9) Hypokalemia: Mild, 3.1 upon admission, will supplement orally and repeat BMP in AM. (10) DVT Prophylaxis: SCDs, heparin. 07/26/14 2314 <Electronicall y signed by Selma Patterson > Date Selma Patterson CC: Selma Patterson; Priya Jimenez DO Signed 03-Jul-2014 L/S Spine Min 4 Views Result: Comments: See Note; NOTES: [facility] Imaging Services [address] [place] [address] Radiology Report MR#: [id number] Acct: [id number] Name: KILEY DREW Jada Rep #: [id number] : 1935 F 78 From: Toy Loja MD PCP: Priya Jimenez DO Status: REG CLI Study: L/S Spine Min 4 Views Date of Exam: 07/03/14 Exam# [id number] Ordering Dr: Kenn Aragon STUDY: X-RAY - LUMBAR SPINE REASON FOR EXAM: Female, 78 years old. left side leg pain TECHNIQUE: 4 view(s) of the lumbar spine were obtained. COMPARISON: 02-01-2009 FINDIN GS: Normal lumbar lordosis. There is no substantial scoliosis. There is a normal alignment of the vertebrae. Stable compression deformity of L5. Stable compression deformity of T11. Normal disc spa ce heights. There are multiple metallic clips in the right upper quadrant. This is consistent for a cholecystectomy. There are vascular calcifications. IMPRESSI ON: Stable compression deformity of L5. Stable compression deformity of T11. Electronically Signed: Toy Loja MD at 18:34 EDT , Service support [phone], Fax RAD/L/S Spine Min 4 Views IMPRESSION: Stable compression deformity of L5. Stable compression deformity of T11. Electronically Signed: Toy Loja MD at 18:34 EDT , Service support [phone], CC: Kenn Aragon; Priya Jimenez DO Environmental Science Professor: Signed 11-May-2014 Chest 1 View (Portable) Result: Comments: See Note; NOTES: [facility] Imaging Services [address] [place] [address] Radiology Report MR#: [id number] Acct: [id number] Name: KILEY DREW Rep #: [id number] : 1935 F 78 From: Ester Bautista MD PCP: Priya Jimenez DO Status: REG ER Study: Chest 1 View (Portable) Date of Exam: 05/11/14 Exam# [id number] Ordering Dr: Moncho Sahu MD STUDY: X-RAY CHEST REASON FOR EXAM: Female, 78 years old. chest pain TECHNIQUE: Single AP portable view of the chest. COMPARISON: April 23, 2014 FINDINGS: The lungs are again hyperexpanded.. There is no demonstrated pleural abnormality. There is stable borderline cardiomegaly.. Normal mediastinum and cathi. Normal visualized pulmonary arteries. There is atheros clerotic calcification of the aortic arch with tortuosity. Normal visualized thoracic spine. Normal visualized ribs, clavicles, and shoulders. There is no demonstrated abnormality of the visualize d soft tissue structures of the upper abdomen. IMPRESSION: There are stable findings. Electronically Signed: Ester Bautista MD at 14:05 EST Tel , Service support [phone], RAD/Chest 1 View (Portable) IMPRESSION: There are stable findings. Electronically Signed: Ester Bautista MD at 14:05 EST , Service support [phone], CC: Priya Jimenez DO; Moncho Sahu MD Environmental Science Professor: Signed 23-Apr-2014 Chest PA and Lateral Result: Comments: See Note; NOTES: [facility] Imaging Services [address] [place] [address] Radiology Report MR#: [id number] Acct: [id number] Name: KILEY DREW Rep #: [id number] : 1935 F 78 From: Edmundo Zhou MD PCP: Priya Jimenez DO Status: REG CLI Study: Chest PA and Lateral Date of Exam: 04/23/14 Exam# [id number] Ordering Dr: Sincere Castillo MD STUDY: X-RA Y CHEST REASON FOR EXAM: Female, 78 years old. Shortness of breath TECHNIQUE: PA and lateral views of the chest. COMPARISON: 09/28/13 FINDINGS: There is hype rinflation of the lungs consistent with chronic obstructive lung disease (COPD). Chronic interstitial changes, no superimposed acute pulmonary process. Normal size heart. Normal mediastinum and cathi . Normal visualized pulmonary arteries. There is atherosclerotic calcification of the aortic arch with tortuosity. There are diffuse degenerative changes of the visualized thoracic spine. Normal vi sualized ribs, clavicles, and shoulders. COPD with chronic interstitial changes, no superimposed acute pulmonary process IMPRESSION: Chronic interstitial yin es, no superimposed acute pulmonary process Electronically Signed: Danny Zhou MD at 14:32 EST Tel [phone], Service support [phone], CC: Sincere Castillo MD; Priya Jimenez DO Environmental Science Professor: Signed 17-Apr-2014 Pulmonary Function Report Comp Result: Comments: See Note; NOTES: [facility] Pulmonary Services/Neurology [address] [place] [address] Pulmonary Function Test (Comp) MR#: [id number] Acct: [id number] Name: KILEY TEMPLE Rep #: [id number] : 1935 78 From: Sincere Castillo MD Referring Dr: Sincere Castillo MD Status: REG CLI Ordering Dr: Sincere Castillo MD Date: 04/13/14 Location: [facility] Sex: F C Date: 03/26 01/07 Tech.: Justino Pal Temp: PBar: Height(in.): 62 Weight(lbs.): 129 Diagnosis: COPD Medication: : Dyspnea Rest: Dyspnea Exercise: Cough: Productive (cc): Persistent: Smoker: Y How Preet g (pk/yrs): Stopped (yrs): Cigarettes: Cigars: SPIROMETRY Ref ULN/LLN Pre Pre Post Post Post Anibal % Ref Anibal % Ref % Chg FVC (L) 2.45 1.71 70 1.68 69 -1 FEV1 (L) 1.84 0.82 44 0.77 42 - 6 FEV1/FVC (%) 82 48 46 FEV6 1.59 1.55 -3 FEF 25-75% (L/sec) 1.64 0.32 20 0.31 19 -4 FEF 50% (L/sec) 2.28 (0.9 - 3.6) 0.42 18 0.38 17 -9 FEF 75% (L/sec) 0.57 (0.2 - 1.0) 0.16 28 0.15 26 -7 P EF (L/sec) 5.05 (2.2 - 7.9) 3.38 67 2.94 58 -13 FET 100% (sec) 8.17 8.91 9 FIVC (L/min) 2.45 1.62 66 1.58 65 -2 FEF/FIF50 0.15 0.13 -18 MVV (L/min) DIFFUSION Ref ULN/LLN Pre Pre Post Post Anibal % Ref Anibal % Ref DLCO (ml/min/mmHg) 16.0 (7.7 - 24.3) 7.9 49 DL Adj (ml/mmHg/min) 16.0 (7.7 - 24.3) 7.9 49 DLCO/VA (ml/mHg/min/L) 3.36 (1.5 - 5.2) 2.25 67 VA (L) 3.51 IVC (L) 1.76 D L/VA Adj (ml/mHg/min/L) PLETHYSMOGRAPHY Ref ULN/LLN Pre Pre Post Post Post LUNG SOUNDS (BTPS) Anibal % Ref Anibal % Ref % Chg TLC (L) 4.36 (3.6 - 5.1) 6.59 151 VC (L) 2.45 1.97 81 IC (L) 1.62 (1.2 - 2.1) 1.[address] (L) 2.64 (1.7 - 3.6) 5.29 201 ERV (L) 0.81 (0.6 - 1.0) 0.67 83 RV (L) 1.83 (1.1 - 2.5) 4.62 252 RV/TLC (%) 42 (30.4 - 53.8) 70 RESISTANCE Ref Pre Pre Post Post Post Anibal % Ref Anibal % Ref % Chg Raw Total (cmH20/L/sec) Raw Insp (cmH20/L/sec) Raw Exp (cmH20/L/sec) Raw (cmH20/L/sec) 1.46 5.87 402 GAW (L/sec/cmH20) sGAW (L/s/cmH20/L) 0.260 0.029 11 Vtg (Raw) (Liters) PULMONARY FUNCTION TEST COMMENTS: Spirometry data is acceptable and reproducible. Aerosol given with unit dose albuterol. A 6 minute walk test performed post with pt becoming syncopal after 110 feet with no desats and HR - 79. BRIEF HISTORY OF PRESENT ILLNESS: The patient is a 78-year-old female, currently under the care of myself, who presents for a complete pulmonary function test secondary to a diagnosis of COPD. The patient had a complete pulmonary function test and a walking oximetry. During the walking oximetry, the patient was able to ambulate appro ximately 110 feet with no desaturations and a heart rate of 79. However, became pre-syncopal and had to stop with her testing. INTERPRETATION: Forced expiration spirometry demonstrates a large sever e large airways obstructive ventilatory defect. There was no significant response to bronchodilators noted. Spirograms are of good quality and do not plateau indicating slowly emptying areas of the l vinicius. The respiratory flow volume loop shows decreased expiratory flow rates at all lung volumes consistent with airways obstruction. Lung volumes by body plethysmography show an elevated total lung capacity at 151 % of predicted. Residual volume is significantly elevated to 252% of predicted indicating hyperinflation and air trapping. Diffusion capacity by single-breath carbon monoxide is sever harshad reduced at 49% of predicted. Airway resistance is elevated. IMPRESSION: Severe large airways obstructive ventilatory defect resulting in air trapping with hyperinflation. There is a proportiona l decrease in diffusion capacity consistent with a diagnosis of severe COPD. 04/17/14 0629 <Electronically signed by Sincere Castillo MD> Date Sincere Castillo MD CC: Sincere Castillo MD; Priya Jimenez DO Date Dictated: 04/14/14 1110 Date Transcribed: 04/15/14 0705 Environmental Science Professor: CAROL ANN Signed 31-Jan-2014 Echocardiogram, Limited Study Result: Comments: See Note; NOTES: [facility] Cardiovascular Services [address] [place] [address] Echo, Limited Study 01/31/14 1347 MR#: [id number] Acct: [id number] Name: KILEY TEMPLE Rep #: [id number] : 1935 78 From: Pete Castro MD Attending Dr: Lianne Ocasio Status: REG CLI Ordering Dr: Lianne Ocasio Date: 01/31/14 Location: [facility] Sex: F C Admitted: Procedure This was a limited 2D transthoracic echocardiogram. Exam performed in department. Left Ventricle The estimated ejection fraction is 50 %. Septal bounce. Infero-Basal: Akinetic. Mid-I nferior: Hypokinetic. There are regional wall motion abnormalities as specified. Moderate proximal inferior aneuyrsm noted. Right Ventricle Normal size and thickness. Normal systolic function. A tria The left atrium is mildly enlarged. Normal right atrium. Mitral Valve The mitral valve is structurally normal. No prolapse or stenosis seen. Tricuspid Valve Normal tricuspid valve. Unable to estimate RV systolic pressure. Aortic Valve Trisinus/trileaflet aortic valve. Mild diffuse aortic valve thickening. Pulmonic Valve The pulmonic valve is not well visualized. Great Vessels Norm al aortic root. Normal arch. Normal inferior vena cava. Inferior vena cava collapse with sniff. Pericardium/Pleural No pericardial effusion. LVIDd: 4.7 cm IVSd: 1.1 cm LA dimension: 3.1 cm LVIDs : 3.5 cm LVPWd: 1.1 cm FS: 26.1 % Interpretation Summary The estimated ejection fraction is 50 %. There are regional wall motion abnormalities as specified. Moderate proximal inferior aneuyrsm not ed. Unable to estimate RV systolic pressure. Compared to echo report dated 11/13/2013, no appreciable changes noted. __ Ordering Physician: Kaden Barboza MD Referring Physician: Priya Jimenez M.D. Performed By: Nevaeh Cherry RDCS 01/31/14 1539 Date Pete Castro MD CC: Priya Jimenez DO; Liannemary beth Ocasio Date Dictated: 01/31/14 1347 Date Transcribed: 01/31/14 1539 Environmental Science Professor: Signed 13-Nov-2013 Echocardiogram Complete Result: Comments: See Note; NOTES: [facility] Cardiovascular Services [address] [place] [address] Echo Complete 11/13/13 1321 MR#: [id number] Acct: [id number] Name: REGAN DREW RA Rep #: [id number] : 1935 78 From: Kaden Barboza MD Attending Dr: Tamra AVILA,Kaden Status: REG CLI Ordering Dr: Kaden Barboza MD Date: 11/13/13 Location: [facility] Sex: F C Admitted: Procedur e This was a 2D Doppler, Color Flow transthoracic echocardiogram. Exam performed in department. Left Ventricle Normal LV size. Left ventricular systolic function is normal. The estimated ejection fraction is 55 %. Segmental dysfunction with preserved ejection fraction (see wall motion). Infero-Basal: Akinetic. Mid-Inferior: Hypokinetic. Right Ventricle Normal RV size. Normal systolic funct ion. Atria Normal left atrium. Normal right atrium. Mitral Valve Normal mitral valve. Mild (1+) mitral valve insufficiency. Tricuspid Valve Normal tricuspid valve. Mild (1+) tricuspid valve ins ufficiency. Pulmonary artery systolic pressure is 24 mmHg. Aortic Valve Trisinus/trileaflet aortic valve. Mild (1+) aortic valve insufficiency. Pulmonic Valve Normal pulmonic valve. Great Vess els Normal aortic root. The pulmonary artery is normal size. Normal inferior vena cava. Pericardium/Pleural No pericardial effusion. LVIDd: 4.6 cm IVSd: 1.1 cm LVOT diam: 2.0 cm Ao root diam: 3. 4 cm LVIDs: 3.1 cm LVPWd: 1.1 cm LVOT area: 3.1 cm2 Ao root area: 8.9 cm2 RVDd: 3.4 cm FS: 33.5 % LA dimension: 3.2 cm __ LAV(MOD-bp): 60.1 ml LA A4 area: 17.1 cm2 RA A4 area: 14.9 cm2 LAV(MOD-bp) Indexed: 38.0 ml/m2 LAV(MOD-sp2): 71.5 ml LAV(MOD-sp4): 50.2 ml MV E max amber: 77.0 cm/sec Lat Peak E' Amber: Med Peak E' Amber: Ao V2 max: 181.2 cm/sec MV A max amber: 94.5 cm/sec 4.5 cm/sec 4.3 cm/sec Ao max P.1 mmHg MV E/A: 0.81 Ao V2 mean: 121.5 cm/sec Ao mean P.6 mmHg Ao V2 VTI: 37.0 cm EDGAR(I,D): 2.2 cm2 EDGAR(V,D): 2.4 cm2 AI max amber: 419.2 cm/sec LV V1 max: 137.5 cm/sec SV(LVOT): 82.7 ml TR max amber: AI max P 0.3 mmHg LV V1 max P.6 mmHg 242.1 cm/sec AI dec slope: LV V1 mean P.5 mmHg TR max P.4 mmHg 157.7 cm/sec2 LV V1 mean: 85.3 cm/sec AI P1/2t: 778.3 msec LV V1 VTI: 26.5 cm E/E' lat: 17.0 E/E' med: 17.8 Interpretation Summary Normal LV size. Left ventricular systolic function is normal. The estimate d ejection fraction is 55 %. Segmental dysfunction with preserved ejection fraction (see wall motion). Mild (1+) mitral valve insufficiency. Mild (1+) tricuspid valve insufficiency. Ordering Physician: Kaden Barboza Performed By: Zee Joya [facility] : Kaden Barboza MD; Priya Jimenez DO Date Dictated: 11/13/13 1321 Date Transcribed: 11/13/13 1631 Environmental Science Professor: Signed 27-Sep-2013 Dexa Bone Density Study (HP) Result: Comments: See Note; NOTES: [facility] Imaging Services [address] [place] [address] Bone Density Report MR#: [id number] Acct: [id number] Name: KILEY DREW Jada Rep #: [id number] : 1935 F 78 From: Kit Castillo MD PCP: Priya Jimenez DO Status: [facility] Study: Dexa Bone Density Study (HP) Date of Exam: 09/27/13 Exam# [id number] Ordering Dr: Terrie Jimenez DO STUDY: DUAL ENERGY X-RAY ABSORPTIOMETRY / DXA REASON FOR EXAM: Female, 78 years old. Early menopause. History of osteopenia. TECHNIQUE: Bone Mineral Density (BMD) measurements of lumbar s pine and bilateral hips were obtained. COMPARISON: Comparison is made with prior study dated December 27, 2008. FINDINGS: Lumbar Spine (L1-L4): g/cm2 (0.815) / T-score (-2.9) / Z-score (-1.1) Findings are suggestive of osteoporosis with a moderate fracture risk. On the lateral critical systems technician view, there is evidence of increased kyphosis. Left Femur Total: g/cm2 ( 0.658) / T-score (-2.8) / Z-score (-0.9) Left Femoral Neck: g/cm2 (0.678) / T- score (-2.6) / Z-score (-0.6) Right Femur Total: g/cm2 (0.580) / T-score (-3.4) / Z-score (-1.6) Right Femoral Neck: g/cm 2 (0.647) / T-score (-2.8) / Z-score (-0.8) The T-Scores on the most recent prior examination were: Lumbar Spine (L1-L4): There has been worsening of bone density since the previous examination. Left Femur Total: which represents a worsening of 15.5%. Right Femur Total: which represents a worsening of 24.3%. IMPRESSION: The patient is considered osteopor otic as outlined below according to World Leif Organization (WHO) criteria with a high fracture risk. There has been worsening of bone density since the previous examination. Reference Information: The T-score is the number of standard deviations above or below the standard which is normal for young adults at their peak bone mineral density. The World Heal th Organization (WHO) interprets the T-scores as follows: Above -1 Normal bone density Between -1 and -2.5 Osteopenia Equal to / or below -2.5 Osteoporosis As a practical clinical guideline, oste openia may be graded as follows: Mild -1 through -1.5 Moderate -1.6 through -2.0 Severe -2.1 through -2.4 The Z-score is the number of standard deviations above or below age-matched controls. A Z- score of less than -1.5 would be considered abnormal. References: 1. NIH Osteoporosis and Related Bone Diseases http://www.osteo.org 2. International Society for Clinical Densitometry http://www.isc d.org 3. National Osteoporosis Foundation http://www.nof.org Electronically Signed: Kit Castillo MD at 14:27 EDT Tel [phone], Service support [phone], CC: Priya Jimenez DO Environmental Science Professor: Signed 16-Aug-2013 Kidney and Bladder Result: Comments: See Note; NOTES: [facility] Imaging Services [address] [place] [address] Ultrasound Report MR#: [id number] Acct: [id number] Name: KILEY DREW Rep #: [id number] : 1935 F 77 From: Kit Castillo MD PCP: Priya Jimenez DO Status: REG CLI Study: Kidney and Bladder Date of Exam: 08/16/13 Exam# [id number] Ordering Dr: Ross Mello MD STUDY: RENAL ULTRASOUND - COMPLETE REASON FOR EXAM: Female, 77 years old. History of renal cysts. TECHNIQUE: Ultrasound evaluation of the kidneys was performed with real-time and static campos-s damien imaging. COMPARISON: Comparison is made with prior examination dated September 14, 2012. FINDINGS: RIGHT KIDNEY: Normal location of the right kidney, which is n ormal in size. The right kidney measures 10.2 cm. There is a normal cortex of the right kidney. The renal cortex measures 2.0 cm. There is a 10 mm x 10 mm x 9 mm cyst. This is unchanged. Tiny echogen ic foci are seen within the kidney suggestive of small nonobstructive calculi. There is no right hydronephrosis. DISTAL RIGHT URETER: There is non- visualization of the distal right ureter. There is no demonstrated right ureterovesical junction calculus. There is a visualized right ureteral jet. LEFT KIDNEY: Normal location of the left kidney, which is normal in size. The left kidney measures 9.5 cm. There is a normal cortex of the left kidney. The renal cortex measures 1.3 cm. There is a stable 1.9 cm x 1.8 cm x 1.7 cm cyst this is unchanged in size and appearance. Several tiny nonobstru ctive intrarenal calculi are seen. There is no left hydronephrosis. DISTAL LEFT URETER: There is non-visualization of the distal left ureter. There is no demonstrated left ureterovesical junction ca lculus. There is a visualized left ureteral jet. BLADDER: There is a normal wall thickness of the distended urinary bladder. There is no demonstrated mass within the urinary bladder. There are no d emonstrated bladder calculi. IMPRESSION: Stable examination. Electronically Signed: Kit Castillo MD at 9:30 EDT Tel [phone], Service sup port [phone], CC: Priya Jimenez DO; Ross Mello MD Environmental Science Professor: Signed Immunization Name Dates Details Influenza (3 years and up) on: 03-Jan-2009 Comments: Lot #:[id number] date: mount given: 0.5 mlRoute: IMSite given: Left deltoidGiven by: Stevenson Singletary LPN Social History Name Dates Details Exercise History Comments: Light Status: Active Living Situation Comments: Lives alone Status: Active Most Recent Primary Occupation Comments: retired Status: Active Non Drinker/No Alcohol Use Status: Active Tobacco Use Comments: Smokes 4 or 5 cigarettes per day04/29/11same status 08/12/11 Status: Active Vital Signs Date Test Result Details [id number] Comments: hearing wnlDr. Chambers and had glaucoma test done Temperature 97.9 f Comments: Method: Temporal Pulse 74 /min Comments: Pattern: Regular Respiration Rate 16 /min Comments: Pattern: Unlabored O2 SAT 96 % Comments: 3.5L O2 BP Systolic 116 mm[Hg] Comments: Patient Position: Sitting BP Diastolic 60 mm[Hg] Comments: Patient Position: Sitting Weight 125 lb Height 62 in Body Mass Index Calculated 22.86 kg/m2 Body Surface Area Calculated 1.57 m2 :47 Pulse 81 /min Comments: Pattern: Regular Respiration Rate 18 /min Comments: Pattern: Unlabored O2 SAT 90 % Comments: 3.5L O2 BP Systolic 124 mm[Hg] Comments: Patient Position: Sitting; Cuff Location: Left Arm; Cuff Size: Standard BP Diastolic 82 mm[Hg] Comments: Patient Position: Sitting; Cuff Location: Left Arm; Cuff Size: Standard Weight 125 lb Height 62 in Body Mass Index Calculated 22.86 kg/m2 Body Surface Area Calculated 1.57 m2 :57 Temperature 97.2 f Comments: Method: Temporal Pulse 68 /min Comments: Pattern: Regular Respiration Rate 18 /min Comments: Pattern: Unlabored BP Systolic 106 mm[Hg] Comments: Patient Position: Sitting; Cuff Location: Left Arm; Cuff Size: Standard BP Diastolic 68 mm[Hg] Comments: Patient Position: Sitting; Cuff Location: Left Arm; Cuff Size: Standard Weight 130 lb Height 62 in Body Mass Index Calculated 23.78 kg/m2 Body Surface Area Calculated 1.59 m2 :04 Temperature 97.2 f Comments: Method: Temporal Pulse 67 /min Comments: Pattern: Regular Respiration Rate 18 /min Comments: Pattern: Unlabored O2 SAT 91 % Comments: 3.5L O2 BP Systolic 120 mm[Hg] Comments: Patient Position: Sitting; Cuff Location: Left Arm; Cuff Size: Standard BP Diastolic 58 mm[Hg] Comments: Patient Position: Sitting; Cuff Location: Left Arm; Cuff Size: Standard Weight 134 lb Height 62 in Body Mass Index Calculated 24.51 kg/m2 Body Surface Area Calculated 1.61 m2 :11 Pulse 54 /min Comments: Pattern: Regular Respiration Rate 18 /min Comments: Pattern: Unlabored O2 SAT 94 % Comments: 3L O2 BP Systolic 120 mm[Hg] Comments: Patient Position: Sitting; Cuff Location: Left Arm; Cuff Size: Standard BP Diastolic 70 mm[Hg] Comments: Patient Position: Sitting; Cuff Location: Left Arm; Cuff Size: Standard Weight 134 lb Height 62 in Body Mass Index Calculated 24.51 kg/m2 Body Surface Area Calculated 1.61 m2 :41 Comments: hearing wnlDrNing Chambers and had a glaucoma test done Pulse 62 /min Comments: Pattern: Regular Respiration Rate 18 /min Comments: Pattern: Unlabored O2 SAT 92 % Comments: 2L O2 BP Systolic 120 mm[Hg] Comments: Patient Position: Sitting; Cuff Location: Left Arm; Cuff Size: Standard BP Diastolic 62 mm[Hg] Comments: Patient Position: Sitting; Cuff Location: Left Arm; Cuff Size: Standard Weight 134 lb Height 62 in Body Mass Index Calculated 24.51 kg/m2 Body Surface Area Calculated 1.61 m2 :35 Pulse 61 /min Comments: Pattern: Regular Respiration Rate 20 /min Comments: Pattern: Unlabored O2 SAT 98 % Comments: 3L O2 BP Systolic 118 mm[Hg] Comments: Patient Position: Sitting; Cuff Location: Left Arm; Cuff Size: Large BP Diastolic 60 mm[Hg] Comments: Patient Position: Sitting; Cuff Location: Left Arm; Cuff Size: Large Weight 134 lb Height 62 in Body Mass Index Calculated 24.51 kg/m2 Body Surface Area Calculated 1.61 m2 :42 Pulse 43 /min Comments: Pattern: Regular Respiration Rate 18 /min Comments: Pattern: Unlabored O2 SAT 97 % Comments: Room air BP Systolic 104 mm[Hg] Comments: Patient Position: Sitting; Cuff Location: Left Arm; Cuff Size: Standard BP Diastolic 60 mm[Hg] Comments: Patient Position: Sitting; Cuff Location: Left Arm; Cuff Size: Standard Weight 130 lb Height 62 in Body Mass Index Calculated 23.78 kg/m2 Body Surface Area Calculated 1.59 m2 :47 Pulse 66 /min Comments: Pattern: Regular Respiration Rate 18 /min Comments: Pattern: Unlabored O2 SAT 93 % Comments: 3L O2 BP Systolic 102 mm[Hg] Comments: Patient Position: Sitting; Cuff Location: Left Arm; Cuff Size: Standard BP Diastolic 60 mm[Hg] Comments: Patient Position: Sitting; Cuff Location: Left Arm; Cuff Size: Standard Weight 130 lb Height 62 in Body Mass Index Calculated 23.78 kg/m2 Body Surface Area Calculated 1.59 m2 :12 Pulse 68 /min Comments: Pattern: Regular Respiration Rate 18 /min Comments: Pattern: Unlabored O2 SAT 97 % Comments: 3L O2 BP Systolic 102 mm[Hg] Comments: Patient Position: Sitting; Cuff Location: Left Arm; Cuff Size: Standard BP Diastolic 58 mm[Hg] Comments: Patient Position: Sitting; Cuff Location: Left Arm; Cuff Size: Standard Weight 133.5 lb Height 63.5 in Body Mass Index Calculated 23.28 kg/m2 Body Surface Area Calculated 1.64 m2 :49 Comments: pt states her O2 leel runs 98 at home Pulse 58 /min Comments: Pattern: Regular Respiration Rate 18 /min Comments: Pattern: Unlabored O2 SAT 88 % Comments: 3L O2 BP Systolic 90 mm[Hg] Comments: Patient Position: Sitting; Cuff Location: Left Arm; Cuff Size: Standard BP Diastolic 50 mm[Hg] Comments: Patient Position: Sitting; Cuff Location: Left Arm; Cuff Size: Standard Weight 133.5 lb Height 63.5 in Body Mass Index Calculated 23.28 kg/m2 Body Surface Area Calculated 1.64 m2 :56 Pulse 66 /min Comments: Pattern: Regular Respiration Rate 18 /min Comments: Pattern: Unlabored O2 SAT 95 % Comments: 3L O2 BP Systolic 98 mm[Hg] Comments: Patient Position: Sitting; Cuff Location: Left Arm; Cuff Size: Standard BP Diastolic 56 mm[Hg] Comments: Patient Position: Sitting; Cuff Location: Left Arm; Cuff Size: Standard Weight 136.5 lb Height 63.5 in Body Mass Index Calculated 23.8 kg/m2 Body Surface Area Calculated 1.65 m2 :04 Pulse 79 /min Comments: Pattern: Regular Respiration Rate 20 /min Comments: Pattern: Unlabored O2 SAT 94 % Comments: 3L O2 BP Systolic 98 mm[Hg] Comments: Patient Position: Sitting; Cuff Location: Left Arm; Cuff Size: Standard BP Diastolic 60 mm[Hg] Comments: Patient Position: Sitting; Cuff Location: Left Arm; Cuff Size: Standard Weight 136.5 lb Height 63.5 in Body Mass Index Calculated 23.8 kg/m2 Body Surface Area Calculated 1.65 m2 :39 Comments: down 7#oxygen on pulse Temperature 97.1 f Comments: Method: Temporal Pulse 57 /min Comments: Pattern: Regular Respiration Rate 17 /min Comments: Pattern: Unlabored O2 SAT 97 % Comments: Room air BP Systolic 140 mm[Hg] Comments: Patient Position: Sitting; Cuff Location: Left Arm; Cuff Size: Standard BP Diastolic 78 mm[Hg] Comments: Patient Position: Sitting; Cuff Location: Left Arm; Cuff Size: Standard Weight 136.5 lb Height 63.5 in Body Mass Index Calculated 23.8 kg/m2 Body Surface Area Calculated 1.65 m2 :17 Pulse 85 /min Comments: Pattern: Regular Respiration Rate 20 /min Comments: Pattern: Unlabored BP Systolic 122 mm[Hg] Comments: Patient Position: Sitting; Cuff Location: Left Arm; Cuff Size: Standard BP Diastolic 60 mm[Hg] Comments: Patient Position: Sitting; Cuff Location: Left Arm; Cuff Size: Standard Weight 143.5 lb Height 63.5 in Body Mass Index Calculated 25.02 kg/m2 Body Surface Area Calculated 1.69 m2 :56 Pulse 63 /min Comments: Pattern: Regular Respiration Rate 16 /min Comments: Pattern: Unlabored O2 SAT 93 % Comments: 3L O2 BP Systolic 90 mm[Hg] Comments: Patient Position: Sitting; Cuff Location: Left Arm; Cuff Size: Standard BP Diastolic 50 mm[Hg] Comments: Patient Position: Sitting; Cuff Location: Left Arm; Cuff Size: Standard Weight 143.5 lb Height 63.5 in Body Mass Index Calculated 25.02 kg/m2 Body Surface Area Calculated 1.69 m2 :42 Pulse 64 /min Comments: Pattern: Regular Respiration Rate 20 /min Comments: Pattern: Unlabored BP Systolic 122 mm[Hg] Comments: Patient Position: Sitting; Cuff Location: Left Arm; Cuff Size: Standard BP Diastolic 70 mm[Hg] Comments: Patient Position: Sitting; Cuff Location: Left Arm; Cuff Size: Standard Weight 143.5 lb Height 63.5 in Body Mass Index Calculated 25.02 kg/m2 Body Surface Area Calculated 1.69 m2 :27 Pulse 85 /min Comments: Pattern: Regular Respiration Rate 20 /min Comments: Pattern: Unlabored O2 SAT 95 % Comments: 3L O2 BP Systolic 110 mm[Hg] Comments: Patient Position: Sitting; Cuff Location: Left Arm; Cuff Size: Large BP Diastolic 70 mm[Hg] Comments: Patient Position: Sitting; Cuff Location: Left Arm; Cuff Size: Large Weight 143.5 lb Height 63.5 in Body Mass Index Calculated 25.02 kg/m2 Body Surface Area Calculated 1.69 m2 :34 Temperature 97.8 f Comments: Method: Temporal Pulse 72 /min Comments: Pattern: Regular Respiration Rate 16 /min Comments: Pattern: Unlabored O2 SAT 96 % Comments: Room air BP Systolic 132 mm[Hg] Comments: Patient Position: Sitting; Cuff Location: Left Arm; Cuff Size: Standard BP Diastolic 78 mm[Hg] Comments: Patient Position: Sitting; Cuff Location: Left Arm; Cuff Size: Standard Weight 142 lb Height 63.5 in Body Mass Index Calculated 24.76 kg/m2 Body Surface Area Calculated 1.68 m2 :09 Temperature 97.7 f Comments: Method: Axillary Pulse 88 /min Comments: Pattern: Regular Respiration Rate 20 /min Comments: Pattern: Unlabored O2 SAT 98 % Comments: 3L O2 BP Systolic 120 mm[Hg] Comments: Patient Position: Sitting; Cuff Location: Left Arm; Cuff Size: Standard BP Diastolic 62 mm[Hg] Comments: Patient Position: Sitting; Cuff Location: Left Arm; Cuff Size: Standard Weight 140.375 lb Height 63.5 in Body Mass Index Calculated 24.48 kg/m2 Body Surface Area Calculated 1.67 m2 :01 Pulse 67 /min Comments: Pattern: Regular Respiration Rate 20 /min Comments: Pattern: Unlabored O2 SAT 94 % Comments: 3L O2 BP Systolic 128 mm[Hg] Comments: Patient Position: Sitting; Cuff Location: Left Arm; Cuff Size: Large BP Diastolic 70 mm[Hg] Comments: Patient Position: Sitting; Cuff Location: Left Arm; Cuff Size: Large Weight 135.375 lb Height 63.5 in Body Mass Index Calculated 23.6 kg/m2 Body Surface Area Calculated 1.65 m2 :13 Pulse 70 /min Comments: Pattern: Regular Respiration Rate 20 /min Comments: Pattern: Unlabored O2 SAT 94 % Comments: 3L O2 BP Systolic 118 mm[Hg] Comments: Patient Position: Sitting; Cuff Location: Left Arm; Cuff Size: Large BP Diastolic 60 mm[Hg] Comments: Patient Position: Sitting; Cuff Location: Left Arm; Cuff Size: Large Weight 143.375 lb Height 63.5 in Body Mass Index Calculated 25 kg/m2 Body Surface Area Calculated 1.69 m2 :46 Temperature 98.8 f Comments: Method: Oral Pulse 60 /min Comments: Pattern: Regular Respiration Rate 20 /min O2 SAT 97 % Comments: 3L O2 BP Systolic 110 mm[Hg] Comments: Patient Position: Sitting; Cuff Location: Left Arm; Cuff Size: Standard BP Diastolic 68 mm[Hg] Comments: Patient Position: Sitting; Cuff Location: Left Arm; Cuff Size: Standard :22 Pulse 57 /min Comments: Pattern: Regular Respiration Rate 20 /min Comments: Pattern: Unlabored O2 SAT 96 % Comments: 3L O2 BP Systolic 124 mm[Hg] Comments: Patient Position: Sitting; Cuff Location: Left Arm; Cuff Size: Large BP Diastolic 78 mm[Hg] Comments: Patient Position: Sitting; Cuff Location: Left Arm; Cuff Size: Large Weight 138.4375 lb Height 63.5 in Body Mass Index Calculated 24.14 kg/m2 Body Surface Area Calculated 1.66 m2 :02 Respiration Rate 20 /min Comments: Pattern: Unlabored BP Systolic 118 mm[Hg] Comments: Patient Position: Sitting; Cuff Location: Left Arm; Cuff Size: Standard BP Diastolic 70 mm[Hg] Comments: Patient Position: Sitting; Cuff Location: Left Arm; Cuff Size: Standard Weight 131.375 lb Height 63.5 in Body Mass Index Calculated 22.91 kg/m2 Body Surface Area Calculated 1.63 m2 :28 Temperature 96.4 f Comments: Method: Oral Pulse 57 /min Comments: Pattern: Regular Respiration Rate 14 /min Comments: Pattern: Unlabored O2 SAT 99 % Comments: 3L O2 BP Systolic 102 mm[Hg] Comments: Patient Position: Sitting; Cuff Location: Left Arm; Cuff Size: Standard BP Diastolic 52 mm[Hg] Comments: Patient Position: Sitting; Cuff Location: Left Arm; Cuff Size: Standard Weight 130.375 lb Height 63.5 in Body Mass Index Calculated 22.73 kg/m2 Body Surface Area Calculated 1.62 m2 :43 Pulse 64 /min Comments: Pattern: Regular Respiration Rate 20 /min Comments: Pattern: Labored O2 SAT 94 % Comments: 2L O2 BP Systolic 128 mm[Hg] Comments: Patient Position: Sitting; Cuff Location: Left Arm; Cuff Size: Standard BP Diastolic 82 mm[Hg] Comments: Patient Position: Sitting; Cuff Location: Left Arm; Cuff Size: Standard Weight 128.25 lb Height 63.5 in Body Mass Index Calculated 22.36 kg/m2 Body Surface Area Calculated 1.61 m2 :16 Comments: Dr. Chambers and hearing wnl Temperature 97.8 f Comments: Method: Tympanic Pulse 86 /min Comments: Pattern: Regular Respiration Rate 18 /min Comments: Pattern: Unlabored O2 SAT 93 % Comments: 3L O2 BP Systolic 122 mm[Hg] Comments: Patient Position: Sitting; Cuff Location: Left Arm; Cuff Size: Standard BP Diastolic 74 mm[Hg] Comments: Patient Position: Sitting; Cuff Location: Left Arm; Cuff Size: Standard Weight 127.4375 lb Height 63.5 in Body Mass Index Calculated 22.22 kg/m2 Body Surface Area Calculated 1.61 m2 :48 Pulse 63 /min Comments: Pattern: Regular Respiration Rate 20 /min Comments: Pattern: Unlabored O2 SAT 94 % Comments: 3L O2 BP Systolic 110 mm[Hg] Comments: Patient Position: Sitting; Cuff Location: Left Arm; Cuff Size: Standard BP Diastolic 62 mm[Hg] Comments: Patient Position: Sitting; Cuff Location: Left Arm; Cuff Size: Standard Weight 125.4375 lb Height 63.5 in Body Mass Index Calculated 21.87 kg/m2 Body Surface Area Calculated 1.6 m2 :38 Temperature 98.5 f Comments: Method: Oral Pulse 64 /min Comments: Pattern: Regular Respiration Rate 20 /min Comments: Pattern: Unlabored BP Systolic 120 mm[Hg] Comments: Patient Position: Sitting; Cuff Location: Left Arm; Cuff Size: Standard BP Diastolic 68 mm[Hg] Comments: Patient Position: Sitting; Cuff Location: Left Arm; Cuff Size: Standard Weight 125.375 lb Height 63.5 in Body Mass Index Calculated 21.86 kg/m2 Body Surface Area Calculated 1.59 m2 :59 Temperature 98.6 f Comments: Method: Oral Pulse 60 /min Comments: Pattern: Regular Respiration Rate 20 /min Comments: Pattern: Unlabored BP Systolic 172 mm[Hg] Comments: Patient Position: Sitting; Cuff Location: Left Arm; Cuff Size: Standard BP Diastolic 90 mm[Hg] Comments: Patient Position: Sitting; Cuff Location: Left Arm; Cuff Size: Standard Weight 124.375 lb Height 63.5 in Body Mass Index Calculated 21.69 kg/m2 Body Surface Area Calculated 1.59 m2 :28 Temperature 98.1 f Comments: Method: Oral Pulse 60 /min Comments: Pattern: Regular Respiration Rate 20 /min Comments: Pattern: Unlabored BP Systolic 140 mm[Hg] Comments: Patient Position: Sitting; Cuff Location: Left Arm; Cuff Size: Standard BP Diastolic 80 mm[Hg] Comments: Patient Position: Sitting; Cuff Location: Left Arm; Cuff Size: Standard Weight 125.0625 lb Height 63.5 in Body Mass Index Calculated 21.81 kg/m2 Body Surface Area Calculated 1.59 m2 :50 Temperature 98.1 f Comments: Method: Oral Pulse 64 /min Comments: Pattern: Regular Respiration Rate 18 /min Comments: Pattern: Unlabored BP Systolic 140 mm[Hg] Comments: Patient Position: Sitting; Cuff Location: Left Arm; Cuff Size: Large BP Diastolic 78 mm[Hg] Comments: Patient Position: Sitting; Cuff Location: Left Arm; Cuff Size: Large Weight 126.5 lb Height 63.5 in Body Mass Index Calculated 22.06 kg/m2 Body Surface Area Calculated 1.6 m2 :00 Temperature 97.5 f Comments: Method: Oral Pulse 60 /min Comments: Pattern: Regular Respiration Rate 20 /min Comments: Pattern: Unlabored BP Systolic 142 mm[Hg] Comments: Patient Position: Sitting; Cuff Location: Left Arm; Cuff Size: Large BP Diastolic 90 mm[Hg] Comments: Patient Position: Sitting; Cuff Location: Left Arm; Cuff Size: Large Weight 126.0625 lb Height 63.5 in Body Mass Index Calculated 21.98 kg/m2 Body Surface Area Calculated 1.6 m2 :04 Temperature 98 f Comments: Method: Oral Pulse 80 /min Comments: Pattern: Regular Respiration Rate 16 /min Comments: Pattern: Unlabored BP Systolic 162 mm[Hg] Comments: Patient Position: Sitting; Cuff Location: Left Arm; Cuff Size: Standard BP Diastolic 80 mm[Hg] Comments: Patient Position: Sitting; Cuff Location: Left Arm; Cuff Size: Standard Weight 127.25 lb Height 63.5 in Body Mass Index Calculated 22.19 kg/m2 Body Surface Area Calculated 1.61 m2 :16 Weight 126.8 lb Height 63.5 in Body Mass Index Calculated 22.11 kg/m2 Body Surface Area Calculated 1.6 m2 :13 Temperature 97 f Comments: Method: Temporal Pulse 68 /min Comments: Pattern: Regular Respiration Rate 16 /min Comments: Pattern: Unlabored O2 SAT 97 % Comments: Room air BP Systolic 142 mm[Hg] Comments: Patient Position: Sitting; Cuff Location: Left Arm; Cuff Size: Standard BP Diastolic 78 mm[Hg] Comments: Patient Position: Sitting; Cuff Location: Left Arm; Cuff Size: Standard Weight 126.8 lb Height 63.5 in Body Mass Index Calculated 22.11 kg/m2 Body Surface Area Calculated 1.6 m2 :49 Temperature 98.6 f Comments: Method: Oral Pulse 72 /min Comments: Pattern: Regular Respiration Rate 20 /min Comments: Pattern: Unlabored BP Systolic 148 mm[Hg] Comments: Patient Position: Sitting; Cuff Location: Left Arm; Cuff Size: Standard BP Diastolic 82 mm[Hg] Comments: Patient Position: Sitting; Cuff Location: Left Arm; Cuff Size: Standard Weight 129.1875 lb Height 63.5 in Body Mass Index Calculated 22.53 kg/m2 Body Surface Area Calculated 1.62 m2 :42 Temperature 98.2 f Comments: Method: Oral Pulse 64 /min Comments: Pattern: Regular Respiration Rate 20 /min Comments: Pattern: Unlabored BP Systolic 162 mm[Hg] Comments: Patient Position: Sitting; Cuff Location: Left Arm; Cuff Size: Large BP Diastolic 84 mm[Hg] Comments: Patient Position: Sitting; Cuff Location: Left Arm; Cuff Size: Large Weight 130.125 lb Height 63.5 in Body Mass Index Calculated 22.69 kg/m2 Body Surface Area Calculated 1.62 m2 :01 Temperature 97.9 f Pulse 76 /min Comments: Pattern: Regular Respiration Rate 18 /min Comments: Pattern: Unlabored BP Systolic 144 mm[Hg] Comments: Patient Position: Sitting; Cuff Location: Left Arm; Cuff Size: Standard BP Diastolic 80 mm[Hg] Comments: Patient Position: Sitting; Cuff Location: Left Arm; Cuff Size: Standard Weight 147 lb Height 63.5 in Body Mass Index Calculated 25.63 kg/m2 Body Surface Area Calculated 1.71 m2 :54 Temperature 98.2 f Comments: Method: Tympanic Pulse 64 /min Comments: Pattern: Regular Respiration Rate 20 /min Comments: Pattern: Unlabored BP Systolic 124 mm[Hg] Comments: Patient Position: Sitting; Cuff Location: Left Arm; Cuff Size: Standard BP Diastolic 80 mm[Hg] Comments: Patient Position: Sitting; Cuff Location: Left Arm; Cuff Size: Standard Weight 147.5 lb Height 63.5 in Body Mass Index Calculated 25.72 kg/m2 Body Surface Area Calculated 1.71 m2 :10 Temperature 98 f Comments: Method: Temporal Pulse 74 /min Comments: Pattern: Regular Respiration Rate 18 /min Comments: Pattern: Unlabored O2 SAT 97 % Comments: Room air BP Systolic 124 mm[Hg] Comments: Patient Position: Sitting; Cuff Location: Left Arm; Cuff Size: Standard BP Diastolic 72 mm[Hg] Comments: Patient Position: Sitting; Cuff Location: Left Arm; Cuff Size: Standard Weight 147.5 lb Height 63.5 in Body Mass Index Calculated 25.72 kg/m2 Body Surface Area Calculated 1.71 m2 :26 Temperature 98 f Comments: Method: Oral Pulse 80 /min Comments: Pattern: Regular Respiration Rate 20 /min Comments: Pattern: Unlabored BP Systolic 128 mm[Hg] Comments: Patient Position: Sitting; Cuff Location: Left Arm; Cuff Size: Large BP Diastolic 80 mm[Hg] Comments: Patient Position: Sitting; Cuff Location: Left Arm; Cuff Size: Large Weight 147.5 lb Height 63.5 in Body Mass Index Calculated 25.72 kg/m2 Body Surface Area Calculated 1.71 m2 :34 Temperature 97.6 f Comments: Method: Oral Pulse 60 /min Comments: Pattern: Regular Respiration Rate 20 /min Comments: Pattern: Unlabored BP Systolic 120 mm[Hg] Comments: Patient Position: Sitting; Cuff Location: Left Arm; Cuff Size: Standard BP Diastolic 76 mm[Hg] Comments: Patient Position: Sitting; Cuff Location: Left Arm; Cuff Size: Standard Weight 150.375 lb Height 63.5 in Body Mass Index Calculated 26.22 kg/m2 Body Surface Area Calculated 1.72 m2 :30 Pulse 72 /min Comments: Pattern: Regular Respiration Rate 20 /min Comments: Pattern: Unlabored BP Systolic 138 mm[Hg] Comments: Patient Position: Sitting; Cuff Location: Left Arm; Cuff Size: Large BP Diastolic 78 mm[Hg] Comments: Patient Position: Sitting; Cuff Location: Left Arm; Cuff Size: Large Weight 150.375 lb Height 63.5 in Body Mass Index Calculated 26.22 kg/m2 Body Surface Area Calculated 1.72 m2 :49 Temperature 98.4 f Comments: Method: Oral Pulse 60 /min Comments: Pattern: Regular Respiration Rate 20 /min Comments: Pattern: Unlabored BP Systolic 158 mm[Hg] Comments: Patient Position: Sitting; Cuff Location: Left Arm; Cuff Size: Large BP Diastolic 80 mm[Hg] Comments: Patient Position: Sitting; Cuff Location: Left Arm; Cuff Size: Large Weight 147.4375 lb Height 63.5 in Body Mass Index Calculated 25.71 kg/m2 Body Surface Area Calculated 1.71 m2 :05 Temperature 96.6 f Comments: Method: Oral Pulse 68 /min Comments: Pattern: Regular Respiration Rate 20 /min Comments: Pattern: Unlabored BP Systolic 128 mm[Hg] Comments: Patient Position: Sitting; Cuff Location: Left Arm; Cuff Size: Large BP Diastolic 78 mm[Hg] Comments: Patient Position: Sitting; Cuff Location: Left Arm; Cuff Size: Large Weight 155.3125 lb Height 63.5 in Body Mass Index Calculated 27.08 kg/m2 Body Surface Area Calculated 1.75 m2 :02 Comments: Patient took tylenol this am and states was 99.9 earlier this am and yesterday Temperature 97.8 f Comments: Method: Oral Pulse 92 /min Comments: Pattern: Regular Respiration Rate 20 /min Comments: Pattern: Unlabored BP Systolic 132 mm[Hg] Comments: Patient Position: Sitting; Cuff Location: Left Arm; Cuff Size: Standard BP Diastolic 84 mm[Hg] Comments: Patient Position: Sitting; Cuff Location: Left Arm; Cuff Size: Standard Weight 160 lb Height 63.5 in Body Mass Index Calculated 27.9 kg/m2 Body Surface Area Calculated 1.77 m2 :41 Temperature 96.8 f Comments: Method: Oral Pulse 84 /min Comments: Pattern: Regular Respiration Rate 20 /min Comments: Pattern: Unlabored BP Systolic 140 mm[Hg] Comments: Patient Position: Sitting; Cuff Location: Left Arm; Cuff Size: Large BP Diastolic 80 mm[Hg] Comments: Patient Position: Sitting; Cuff Location: Left Arm; Cuff Size: Large Weight 160.0625 lb Height 63.5 in Body Mass Index Calculated 27.91 kg/m2 Body Surface Area Calculated 1.77 m2 :28 Temperature 99.1 f Comments: Method: Oral Pulse 64 /min Comments: Pattern: Regular Respiration Rate 16 /min Comments: Pattern: Unlabored BP Systolic 120 mm[Hg] Comments: Patient Position: Sitting; Cuff Location: Left Arm; Cuff Size: Large BP Diastolic 80 mm[Hg] Comments: Patient Position: Sitting; Cuff Location: Left Arm; Cuff Size: Large Weight 164.125 lb Height 63.5 in Body Mass Index Calculated 28.62 kg/m2 Body Surface Area Calculated 1.79 m2 :57 Temperature 98.4 f Comments: Method: Oral Pulse 80 /min Comments: Pattern: Regular Respiration Rate 20 /min Comments: Pattern: Unlabored BP Systolic 122 mm[Hg] Comments: Patient Position: Sitting; Cuff Location: Left Arm; Cuff Size: Large BP Diastolic 78 mm[Hg] Comments: Patient Position: Sitting; Cuff Location: Left Arm; Cuff Size: Large Weight 164.125 lb Height 63.5 in Body Mass Index Calculated 28.62 kg/m2 Body Surface Area Calculated 1.79 m2 :52 Temperature 97.6 f Comments: Method: Oral Pulse 80 /min Comments: Pattern: Regular Respiration Rate 20 /min Comments: Pattern: Unlabored BP Systolic 132 mm[Hg] Comments: Patient Position: Sitting; Cuff Location: Left Arm; Cuff Size: Standard BP Diastolic 78 mm[Hg] Comments: Patient Position: Sitting; Cuff Location: Left Arm; Cuff Size: Standard Weight 162.4375 lb Height 63.5 in Body Mass Index Calculated 28.32 kg/m2 Body Surface Area Calculated 1.78 m2 :47 Pulse 68 /min Comments: Pattern: Regular Respiration Rate 20 /min Comments: Pattern: Unlabored BP Systolic 120 mm[Hg] Comments: Patient Position: Sitting; Cuff Location: Left Arm; Cuff Size: Large BP Diastolic 82 mm[Hg] Comments: Patient Position: Sitting; Cuff Location: Left Arm; Cuff Size: Large Weight 162.5 lb Height 63.5 in Body Mass Index Calculated 28.33 kg/m2 Body Surface Area Calculated 1.78 m2 :50 Pulse 84 /min Comments: Pattern: Regular Respiration Rate 20 /min Comments: Pattern: Unlabored BP Systolic 118 mm[Hg] Comments: Patient Position: Sitting; Cuff Location: Left Arm; Cuff Size: Large BP Diastolic 70 mm[Hg] Comments: Patient Position: Sitting; Cuff Location: Left Arm; Cuff Size: Large Weight 162.5 lb Height 63.5 in Body Mass Index Calculated 28.33 kg/m2 Body Surface Area Calculated 1.78 m2 :23 Pulse 64 /min Comments: Pattern: Regular Respiration Rate 20 /min Comments: Pattern: Unlabored BP Systolic 138 mm[Hg] Comments: Patient Position: Sitting; Cuff Location: Left Arm; Cuff Size: Large BP Diastolic 84 mm[Hg] Comments: Patient Position: Sitting; Cuff Location: Left Arm; Cuff Size: Large Weight 164.25 lb Height 63.5 in Body Mass Index Calculated 28.64 kg/m2 Body Surface Area Calculated 1.79 m2 :27 Temperature 98.8 f Comments: Method: Oral Pulse 68 /min Comments: Pattern: Regular Respiration Rate 20 /min Comments: Pattern: Unlabored BP Systolic 128 mm[Hg] Comments: Patient Position: Sitting; Cuff Location: Left Arm; Cuff Size: Large BP Diastolic 78 mm[Hg] Comments: Patient Position: Sitting; Cuff Location: Left Arm; Cuff Size: Large Weight 164.25 lb Height 63.5 in Body Mass Index Calculated 28.64 kg/m2 Body Surface Area Calculated 1.79 m2 :31 Comments: After ambulating around the office x2. O2 SAT 93 % Comments: Room air :57 Pulse 68 /min Comments: Pattern: Regular Respiration Rate 20 /min Comments: Pattern: Unlabored BP Systolic 138 mm[Hg] Comments: Patient Position: Sitting; Cuff Location: Left Arm; Cuff Size: Large BP Diastolic 82 mm[Hg] Comments: Patient Position: Sitting; Cuff Location: Left Arm; Cuff Size: Large Weight 153.375 lb Height 63.5 in Body Mass Index Calculated 26.74 kg/m2 Body Surface Area Calculated 1.74 m2 :16 Pulse 72 /min Comments: Pattern: Regular Respiration Rate 20 /min Comments: Pattern: Unlabored BP Systolic 138 mm[Hg] Comments: Patient Position: Sitting; Cuff Location: Left Arm; Cuff Size: Standard BP Diastolic 78 mm[Hg] Comments: Patient Position: Sitting; Cuff Location: Left Arm; Cuff Size: Standard Weight 153.375 lb Height 63.5 in Body Mass Index Calculated 26.74 kg/m2 Body Surface Area Calculated 1.74 m2 :38 Temperature 98.2 f Comments: Method: Oral Pulse 66 /min Comments: Pattern: Regular Respiration Rate 20 /min Comments: Pattern: Unlabored O2 SAT 94 % Comments: 2L O2 BP Systolic 124 mm[Hg] Comments: Patient Position: Sitting; Cuff Location: Left Arm; Cuff Size: Standard BP Diastolic 82 mm[Hg] Comments: Patient Position: Sitting; Cuff Location: Left Arm; Cuff Size: Standard Weight 153.375 lb Height 63.5 in Body Mass Index Calculated 26.74 kg/m2 Body Surface Area Calculated 1.74 m2 :40 Temperature 98.2 f Comments: Method: Oral Pulse 64 /min Comments: Pattern: Regular Respiration Rate 16 /min Comments: Pattern: Unlabored O2 SAT 98 % Comments: Room air BP Systolic 118 mm[Hg] Comments: Patient Position: Sitting; Cuff Location: Left Arm; Cuff Size: Standard BP Diastolic 78 mm[Hg] Comments: Patient Position: Sitting; Cuff Location: Left Arm; Cuff Size: Standard Weight 153.375 lb Height 63.5 in Body Mass Index Calculated 26.74 kg/m2 Body Surface Area Calculated 1.74 m2 :23 O2 SAT 96 % Comments: 3L O2 :21 Temperature 98.2 f Comments: Method: Oral Pulse 68 /min Comments: Pattern: Regular Respiration Rate 20 /min Comments: Pattern: Unlabored BP Systolic 118 mm[Hg] Comments: Patient Position: Sitting; Cuff Location: Left Arm; Cuff Size: Large BP Diastolic 76 mm[Hg] Comments: Patient Position: Sitting; Cuff Location: Left Arm; Cuff Size: Large Weight 153.375 lb Height 63.5 in Body Mass Index Calculated 26.74 kg/m2 Body Surface Area Calculated 1.74 m2 :15 O2 SAT 91 % Comments: Room air :19 Temperature 98.3 f Pulse 80 /min Comments: Pattern: Regular Respiration Rate 18 /min Comments: Pattern: Wheezing BP Systolic 148 mm[Hg] Comments: Patient Position: Sitting; Cuff Location: Left Arm; Cuff Size: Standard BP Diastolic 90 mm[Hg] Comments: Patient Position: Sitting; Cuff Location: Left Arm; Cuff Size: Standard Weight 160.375 lb Height 63.5 in Body Mass Index Calculated 27.96 kg/m2 Body Surface Area Calculated 1.77 m2 :01 Pulse 68 /min Comments: Pattern: Regular Respiration Rate 20 /min Comments: Pattern: Unlabored BP Systolic 118 mm[Hg] Comments: Patient Position: Sitting; Cuff Location: Left Arm; Cuff Size: Large BP Diastolic 78 mm[Hg] Comments: Patient Position: Sitting; Cuff Location: Left Arm; Cuff Size: Large Weight 160.375 lb Height 63.5 in Body Mass Index Calculated 27.96 kg/m2 Body Surface Area Calculated 1.77 m2 :06 Pulse 60 /min Comments: Pattern: Regular Respiration Rate 18 /min Comments: Pattern: Unlabored BP Systolic 122 mm[Hg] Comments: Patient Position: Sitting; Cuff Location: Left Arm; Cuff Size: Large BP Diastolic 78 mm[Hg] Comments: Patient Position: Sitting; Cuff Location: Left Arm; Cuff Size: Large Weight 160.375 lb Height 63.5 in Body Mass Index Calculated 27.96 kg/m2 Body Surface Area Calculated 1.77 m2 :37 Pulse 68 /min Comments: Pattern: Regular Respiration Rate 18 /min Comments: Pattern: Unlabored BP Systolic 122 mm[Hg] Comments: Patient Position: Sitting; Cuff Location: Left Arm; Cuff Size: Large BP Diastolic 62 mm[Hg] Comments: Patient Position: Sitting; Cuff Location: Left Arm; Cuff Size: Large Weight 156.4375 lb Height 63.5 in Body Mass Index Calculated 27.28 kg/m2 Body Surface Area Calculated 1.75 m2 :26 Pulse 68 /min Comments: Pattern: Regular Respiration Rate 20 /min Comments: Pattern: Unlabored BP Systolic 118 mm[Hg] Comments: Patient Position: Sitting; Cuff Location: Left Arm; Cuff Size: Standard BP Diastolic 78 mm[Hg] Comments: Patient Position: Sitting; Cuff Location: Left Arm; Cuff Size: Standard Weight 156.4375 lb Height 63.5 in Body Mass Index Calculated 27.28 kg/m2 Body Surface Area Calculated 1.75 m2 :34 Pulse 80 /min Comments: Pattern: Regular Respiration Rate 20 /min Comments: Pattern: Unlabored BP Systolic 130 mm[Hg] Comments: Patient Position: Sitting; Cuff Location: Left Arm; Cuff Size: Large BP Diastolic 80 mm[Hg] Comments: Patient Position: Sitting; Cuff Location: Left Arm; Cuff Size: Large Weight 156.4375 lb Height 63.5 in Body Mass Index Calculated 27.28 kg/m2 Body Surface Area Calculated 1.75 m2 :04 Pulse 72 /min Comments: Pattern: Regular Respiration Rate 18 /min Comments: Pattern: Unlabored BP Systolic 114 mm[Hg] Comments: Patient Position: Sitting; Cuff Location: Left Arm; Cuff Size: Standard BP Diastolic 72 mm[Hg] Comments: Patient Position: Sitting; Cuff Location: Left Arm; Cuff Size: Standard Weight 158.3125 lb :01 Pulse 60 /min Comments: Pattern: Regular Respiration Rate 20 /min Comments: Pattern: Unlabored BP Systolic 122 mm[Hg] Comments: Patient Position: Sitting; Cuff Location: Left Arm; Cuff Size: Large BP Diastolic 64 mm[Hg] Comments: Patient Position: Sitting; Cuff Location: Left Arm; Cuff Size: Large Weight 152 lb Height 63.5 in Body Mass Index Calculated 26.5 kg/m2 Body Surface Area Calculated 1.73 m2 :47 Pulse 60 /min Comments: Pattern: Regular Respiration Rate 20 /min Comments: Pattern: Unlabored BP Systolic 124 mm[Hg] Comments: Patient Position: Sitting; Cuff Location: Left Arm; Cuff Size: Large BP Diastolic 78 mm[Hg] Comments: Patient Position: Sitting; Cuff Location: Left Arm; Cuff Size: Large Weight 152 lb Height 63.5 in Body Mass Index Calculated 26.5 kg/m2 Body Surface Area Calculated 1.73 m2 :24 Pulse 72 /min Comments: Pattern: Regular Respiration Rate 20 /min Comments: Pattern: Unlabored BP Systolic 120 mm[Hg] Comments: Patient Position: Sitting; Cuff Location: Left Arm; Cuff Size: Large BP Diastolic 78 mm[Hg] Comments: Patient Position: Sitting; Cuff Location: Left Arm; Cuff Size: Large Weight 153.3125 lb Height 63.5 in Body Mass Index Calculated 26.73 kg/m2 Body Surface Area Calculated 1.74 m2 :35 Pulse 80 /min Comments: Pattern: Regular Respiration Rate 20 /min Comments: Pattern: Unlabored BP Systolic 120 mm[Hg] Comments: Patient Position: Sitting; Cuff Location: Left Arm; Cuff Size: Large BP Diastolic 80 mm[Hg] Comments: Patient Position: Sitting; Cuff Location: Left Arm; Cuff Size: Large Weight 154.0625 lb Height 63.5 in Body Mass Index Calculated 26.86 kg/m2 Body Surface Area Calculated 1.74 m2 Head Circumference 0.00 cm :52 Pulse 80 /min Comments: Pattern: Regular Respiration Rate 20 /min Comments: Pattern: Unlabored BP Systolic 122 mm[Hg] Comments: Patient Position: Sitting; Cuff Location: Left Arm; Cuff Size: Large BP Diastolic 82 mm[Hg] Comments: Patient Position: Sitting; Cuff Location: Left Arm; Cuff Size: Large Weight 156.5625 lb Height 63.5 in Body Mass Index Calculated 27.3 kg/m2 Body Surface Area Calculated 1.75 m2 Head Circumference 0.00 cm :05 Pulse 80 /min Comments: Pattern: Regular Respiration Rate 20 /min Comments: Pattern: Unlabored BP Systolic 144 mm[Hg] Comments: Patient Position: Sitting; Cuff Location: Left Arm; Cuff Size: Large BP Diastolic 78 mm[Hg] Comments: Patient Position: Sitting; Cuff Location: Left Arm; Cuff Size: Large Weight 156.5625 lb Height 63.5 in Body Mass Index Calculated 27.3 kg/m2 Body Surface Area Calculated 1.75 m2 Head Circumference 0.00 cm :47 Pulse 68 /min Comments: Pattern: Regular Respiration Rate 20 /min Comments: Pattern: Unlabored BP Systolic 120 mm[Hg] Comments: Patient Position: Sitting; Cuff Location: Left Arm; Cuff Size: Large BP Diastolic 78 mm[Hg] Comments: Patient Position: Sitting; Cuff Location: Left Arm; Cuff Size: Large Weight 156.5625 lb Height 63.5 in Body Mass Index Calculated 27.3 kg/m2 Body Surface Area Calculated 1.75 m2 Head Circumference 0.00 cm :06 Pulse 80 /min Comments: Pattern: Regular Respiration Rate 18 /min Comments: Pattern: Unlabored O2 SAT 95 % Comments: Room air BP Systolic 120 mm[Hg] Comments: Patient Position: Sitting; Cuff Location: Left Arm; Cuff Size: Standard BP Diastolic 78 mm[Hg] Comments: Patient Position: Sitting; Cuff Location: Left Arm; Cuff Size: Standard Weight 153.1875 lb Height 63.5 in Body Mass Index Calculated 26.71 kg/m2 Body Surface Area Calculated 1.74 m2 Head Circumference 0.00 cm :40 Pulse 72 /min Comments: Pattern: Regular Respiration Rate 20 /min Comments: Pattern: Unlabored BP Systolic 118 mm[Hg] Comments: Patient Position: Sitting; Cuff Location: Left Arm; Cuff Size: Large BP Diastolic 78 mm[Hg] Comments: Patient Position: Sitting; Cuff Location: Left Arm; Cuff Size: Large Weight 153.1875 lb Height 63.5 in Body Mass Index Calculated 26.71 kg/m2 Body Surface Area Calculated 1.74 m2 Head Circumference 0.00 cm :15 Pulse 72 /min Comments: Pattern: Regular Respiration Rate 20 /min Comments: Pattern: Unlabored BP Systolic 122 mm[Hg] Comments: Patient Position: Sitting; Cuff Location: Left Arm; Cuff Size: Large BP Diastolic 88 mm[Hg] Comments: Patient Position: Sitting; Cuff Location: Left Arm; Cuff Size: Large Weight 151 lb Height 63.5 in Body Mass Index Calculated 26.33 kg/m2 Body Surface Area Calculated 1.73 m2 Head Circumference 0.00 cm :11 Pulse 72 /min Comments: Pattern: Regular Respiration Rate 16 /min Comments: Pattern: Unlabored BP Systolic 118 mm[Hg] Comments: Patient Position: Supine; Cuff Location: Left Arm; Cuff Size: Standard BP Diastolic 80 mm[Hg] Comments: Patient Position: Supine; Cuff Location: Left Arm; Cuff Size: Standard Weight 151 lb Height 63.5 in Body Mass Index Calculated 26.33 kg/m2 Body Surface Area Calculated 1.73 m2 Head Circumference 0.00 cm :11 Temperature 96.8 f Comments: Method: Undefined Pulse 90 /min Comments: Pattern: Regular Respiration Rate 18 /min Comments: Pattern: Undefined BP Systolic 126 mm[Hg] Comments: Patient Position: Sitting; Cuff Location: Left Arm; Cuff Size: Standard BP Diastolic 74 mm[Hg] Comments: Patient Position: Sitting; Cuff Location: Left Arm; Cuff Size: Standard Weight 151 lb Height 63.5 in Body Mass Index Calculated 26.33 kg/m2 Body Surface Area Calculated 1.73 m2 Head Circumference 0.00 cm :34 Pulse 76 /min Comments: Pattern: Regular Respiration Rate 10 /min Comments: Pattern: Undefined BP Systolic 100 mm[Hg] Comments: Patient Position: Sitting; Cuff Location: Left Arm; Cuff Size: Standard BP Diastolic 70 mm[Hg] Comments: Patient Position: Sitting; Cuff Location: Left Arm; Cuff Size: Standard Weight 0 lb Height 0 in Head Circumference 0.00 cm Results Date Description Value Details :45 CBC W/Diff, Automated Comments: Reason for Laboratory Test .[facility] [address] [place], [address] Absolute Lymph 0.86 {X10_3/ul} (Normal) Range: 0.83-4.51 Absolute Neut 6.0 {X10_3/uL} (Normal) Range: 2.0-7.7 IM GRAN % 0.100 % (Normal) Range: 0.0-0.9 Comments: IG% - Immature Granulocytes (promyelocytes, myelocytes andmetamyelocytes) > 1% indicates that a LEFT SHIFT is Present. BASO% 0.4 % (Normal) Range: 0-1 EO% 1.6 % (Normal) Range: 0-5 MONO% 11.3 % (Abnormal) Range: 0-10 LY% 10.8 % (Abnormal) Range: 19-41 NEUT% 75.8 % (Abnormal) Range: 47-70 MPV 10.6 fL (Normal) Range: 6.2-12.0 PLT 222 K/mm3 (Normal) Range: 150-450 RDW SD 46.8 fL (Abnormal) Range: 35.1-43.9 RDW CV 13.2 % (Normal) Range: 11.6-14.6 MCHC 29.6 {g/gl} (Abnormal) Range: 32-36 MCH 28.7 pg (Normal) Range: 27.0-32.0 MCV 96.9 fL (Normal) Range: 81-99 HCT 44.3 % (Normal) Range: 37-47 HGB 13.1 g/dL (Normal) Range: 12.0-15.0 RBC 4.57 {M/mm3} (Normal) Range: 4.2-5.4 WBC 8.0 K/mm3 (Normal) Range: 4.4-11.0 93-Ohf-[id number]:45 Comprehensive Metabolic Profil Comments: [facility] [address] [place], [address] GAP 6 (Normal) Range: 5-15 CO2 42.0 mmol/L (Abnormal) Range: 21.0-32.0 CL 92 mmol/L (Abnormal) Range: 98-107 K 3.2 mmol/L (Abnormal) Range: 3.5-5.1 NA 140 mmol/L (Normal) Range: 136-145 T BILI 0.30 mg/dL (Normal) Range: 0.20-1.00 ALT 21 U/L (Normal) Range: 13-56 ALK P 74 U/L (Normal) Range: 45-117 AST 28 U/L (Normal) Range: 15-37 CA 9.2 mg/dL (Normal) Range: 8.5-10.1 A/G 0.9 {RATIO} (Normal) Range: 0.9-2.4 GLOB 3.9 g/dL (Normal) Range: 2.2-4.2 ALB 3.4 g/dL (Normal) Range: 3.2-5.0 T PROT 7.3 g/dL (Normal) Range: 6.4-8.2 BUN/CRE 34.2 {RATIO} (Abnormal) Range: 10-20 EST GFR - AA 98 mL/min (Normal) Comments: GFR Calc EST GFR 81 mL/min (Normal) Comments: Non- GFR Calc CREAT,SERUM 0.73 mg/dL (Normal) Range: 0.55-1.02 Comments: The validity of the calculated GFR AND GFRAA in patients over70 years has not been determined. Clinical correlation isessential. BUN 25 mg/dL (Abnormal) Range: 7-18 GLU 136 mg/dL (Abnormal) Range: 74-106 Comments: Fasting Glucose result greater than or equal to 126 mg/dLsuggests DIABETES MELLITUS per A.D.A. criteria.Please note revised GLUCOSE reference range [id number]/02/2018. :45 Ferritin Comments: [facility] [address] [place], [place], [id number] FERRITIN 261 ng/mL (Abnormal) Range: 8-252 :45 Iron+Iron Binding Capacity Comments: [facility] [address] [place], [address] IRON SATURATION 19.1 % (Normal) Range: 15.0-55.0 IRON 63 ug/dL (Normal) Range: 50-170 TIBC 329 ug/dL (Normal) Range: 250-450 :00 CBC W/Diff, Automated Comments: [facility] [address] [place], [address] Absolute Lymph 1.19 {X10_3/ul} (Normal) Range: 0.83-4.51 Absolute Neut 7.0 {X10_3/uL} (Normal) Range: 2.0-7.7 IM GRAN % 0.600 % (Normal) Range: 0.0-0.9 Comments: IG% - Immature Granulocytes (promyelocytes, myelocytes andmetamyelocytes) > 1% indicates that a LEFT SHIFT is Present. BASO% 0.4 % (Normal) Range: 0-1 EO% 1.4 % (Normal) Range: 0-5 MONO% 12.7 % (Abnormal) Range: 0-10 LY% 12.4 % (Abnormal) Range: 19-41 NEUT% 72.5 % (Abnormal) Range: 47-70 MPV 10.8 fL (Normal) Range: 6.2-12.0 PLT 229 K/mm3 (Normal) Range: 150-450 RDW SD 45.6 fL (Abnormal) Range: 35.1-43.9 RDW CV 13.3 % (Normal) Range: 11.6-14.6 MCHC 30.1 {g/gl} (Abnormal) Range: 32-36 MCH 28.9 pg (Normal) Range: 27.0-32.0 MCV 96.1 fL (Normal) Range: 81-99 HCT 44.2 % (Normal) Range: 37-47 HGB 13.3 g/dL (Normal) Range: 12.0-15.0 RBC 4.60 {M/mm3} (Normal) Range: 4.2-5.4 WBC 9.6 K/mm3 (Normal) Range: 4.4-11.0 25-Oct-20170:00 Comprehensive Metabolic Profil Comments: [facility] [address] [place], [place], [id number] GAP 5 (Normal) Range: 5-15 CO2 43.0 mmol/L (Abnormal) Range: 21.0-32.0 CL 90 mmol/L (Abnormal) Range: 98-107 K 3.2 mmol/L (Abnormal) Range: 3.5-5.1 NA 138 mmol/L (Normal) Range: 136-145 T BILI 0.30 mg/dL (Normal) Range: 0.20-1.00 ALT 25 U/L (Normal) Range: 13-56 ALK P 68 U/L (Normal) Range: 45-117 AST 30 U/L (Normal) Range: 15-37 CA 8.9 mg/dL (Normal) Range: 8.5-10.1 A/G 1.0 {RATIO} (Normal) Range: 0.9-2.4 GLOB 3.6 g/dL (Normal) Range: 2.2-4.2 ALB 3.5 g/dL (Normal) Range: 3.2-5.0 T PROT 7.1 g/dL (Normal) Range: 6.4-8.2 BUN/CRE 26.5 {RATIO} (Abnormal) Range: 10-20 EST GFR - AA 95 mL/min (Normal) Comments: GFR Calc EST GFR 78 mL/min (Normal) Comments: Non- GFR Calc CREAT,SERUM 0.76 mg/dL (Normal) Range: 0.55-1.02 Comments: The validity of the calculated GFR AND GFRAA in patients over70 years has not been determined. Clinical correlation isessential. BUN 20 mg/dL (Abnormal) Range: 7-18 GLU 88 mg/dL (Normal) Range: 74-106 Comments: Please note revised GLUCOSE reference range [id number]/02/2018. 25-Oct-20170:00 Lipid Profile Comments: [facility] [address] [place], [place], [address] VLDL 12 mg/dL (Normal) Range: 5-40 LDL 61 mg/dL (Normal) Range: 0-130 HDL 72 mg/dL (Normal) Comments: The drugs N-Acetylcysteine and Metamizole may falselydepress this assay. Reference Range HDL <40 mg/dL Low HDL Cholesterol HDL >or= 60 mg/dL High HDL Cholesterol TRIG 60 mg/dL (Normal) Comments: The drugs N-Acetylcysteine and Metamizole may falselydepress this assay.Serum Triglycerides Reference Interval Normal <150 mg/dL Borderline high 150 - 199 mg/dL High 200 - 499 mg/dL Very High > or = 500 mg/dL CHOL 145 mg/dL (Normal) Comments: <200 mg/dL Desirable 200-240 mg/dL Borderline >240 mg/dL High Risk 25-Oct-20170:00 Microalb:Creat Ratio,Random UR Comments: [facility] [address] [place], [id number] MALB:CREAT 38.8 {mg/g_CRE} (Abnormal) MICROALBUMIN,UR 27.3 mg/L (Normal) UR CREAT 70.40 mg/dL (Normal) :00 Miscellaneous Lab Procedure Comments: Test(s) Ordered: [id number] calcifediol room temp/ serum or [facility] [address] [place], [id number] [facility] Comments: TEST RESULT LIMITSCalcitriol (1,25 di-OH Vit D) 42.8 pg/mL 19.9 - 79.3 TESTING PERFORMED AT [facility] (Normal) NAL REPORT ON FILE IN LAB CONTAINS ADDITIONAL TEST SITE INFORMATION. TEST 25-Oct-20170:00 Thyroid Stim Hormone (TSH) Comments: [facility] [address] [place], [address] TSH 2.95 {uIU/mL} (Normal) Range: 0.358-3.74 25-Oct-20170:00 Urinalysis, Complete Comments: How was Urine Obtained? CLEAN [facility] [address] [place], [address] HYALINE CAST 0-5 SEEN {/lpf} (Normal) Range: 0-5 MUCUS, URINE 0 SEEN {/hpf} (Normal) BACTERIA 1+ {/hpf} (Normal) SQUAM EPI 0-5 SEEN {/hpf} (Normal) Range: 5-10 RBC-UA 0 SEEN {/hpf} (Normal) Range: 0-5 WBC 0-5 SEEN {/hpf} (Normal) Range: 0-5 LEUK ESTERASE 25 /ul (Abnormal) OCCULT BLOOD-UR Negative /ul (Normal) NITRITE UR Negative (Normal) UROBILI Normal mg/dL (Normal) PROT DIPSTX Negative mg/dL (Normal) pH UR 6.0 (Normal) Range: 5.0 - 8.0 SP.GR. DIPSTX 1.015 (Normal) Range: 1.002-1.030 KETONE UR Negative mg/dL (Normal) BILIRUBIN URINE Negative mg/dL (Normal) GLUCOSE, UR Normal mg/dL (Normal) CLARITY Clear (Normal) COLOR Yellow (Normal) 25-Oct-20170:00 Vitamin B12 627 pg/mL (Normal) Comments: [facility] [address] [facility] [address] [place], [place], [id number] Range: 211-911 56-Kkh-64323:00 CBC W/Diff, Automated Comments: [facility] [address] [place], [place], [id number] Absolute Lymph 1.16 {X10_3/ul} (Normal) Range: 0.83-4.51 Absolute Neut 6.2 {X10_3/uL} (Normal) Range: 2.0-7.7 IM GRAN % 0.200 % (Normal) Range: 0.0-0.9 Comments: IG% - Immature Granulocytes (promyelocytes, myelocytes andmetamyelocytes) > 1% indicates that a LEFT SHIFT is Present. BASO% 0.3 % (Normal) Range: 0-1 EO% 2.0 % (Normal) Range: 0-5 MONO% 14.9 % (Abnormal) Range: 0-10 LY% 13.0 % (Abnormal) Range: 19-41 NEUT% 69.6 % (Normal) Range: 47-70 MPV 10.3 fL (Normal) Range: 6.2-12.0 PLT 231 K/mm3 (Normal) Range: 150-450 RDW SD 45.9 fL (Abnormal) Range: 35.1-43.9 RDW CV 13.3 % (Normal) Range: 11.6-14.6 MCHC 29.8 {g/gl} (Abnormal) Range: 32-36 MCH 28.1 pg (Normal) Range: 27.0-32.0 MCV 94.4 fL (Normal) Range: 81-99 HCT 44.0 % (Normal) Range: 37-47 HGB 13.1 g/dL (Normal) Range: 12.0-15.0 RBC 4.66 {M/mm3} (Normal) Range: 4.2-5.4 WBC 9.0 K/mm3 (Normal) Range: 4.4-11.0 29-Jbm-61195:00 Vitamin B12 851 pg/mL (Normal) Comments: [facility] [address] [facility] [address]. [place], [place], [address] Range: 211-911 12-Jok-[id number]:33 CBC W/Diff, Automated Comments: [facility] [address] [facility] [place], [place], [id number] Absolute Lymph 1.38 {X10_3/ul} (Normal) Range: 0.83-4.51 Absolute Neut 6.0 {X10_3/uL} (Normal) Range: 2.0-7.7 IM GRAN % 0.500 % (Normal) Range: 0.0-0.9 Comments: IG% - Immature Granulocytes (promyelocytes, myelocytes andmetamyelocytes) > 1% indicates that a LEFT SHIFT is Present. BASO% 0.4 % (Normal) Range: 0-1 EO% 1.3 % (Normal) Range: 0-5 MONO% 10.0 % (Normal) Range: 0-10 LY% 16.4 % (Abnormal) Range: 19-41 NEUT% 71.4 % (Abnormal) Range: 47-70 MPV 9.9 fL (Normal) Range: 6.2-12.0 PLT 229 K/mm3 (Normal) Range: 150-450 RDW SD 45.0 fL (Abnormal) Range: 35.1-43.9 RDW CV 13.1 % (Normal) Range: 11.6-14.6 MCHC 30.3 {g/gl} (Abnormal) Range: 32-36 MCH 28.4 pg (Normal) Range: 27.0-32.0 MCV 93.7 fL (Normal) Range: 81-99 HCT 43.3 % (Normal) Range: 37-47 HGB 13.1 g/dL (Normal) Range: 12.0-15.0 RBC 4.62 {M/mm3} (Normal) Range: 4.2-5.4 WBC 8.4 K/mm3 (Normal) Range: 4.4-11.0 27-Oig-264954:20 Basic Metabolic Profile (BMP) Comments: [facility] [address] [place], [address] GAP Test not performed (Normal) Range: 5-15 CO2 > 45.0 mmol/L (Abnormal) Range: 21.0-32.0 Comments: Critical Result(s) Called at: 13:32:41 05/19/2017 by:Julia Lord to [employer] CL 90 mmol/L (Abnormal) Range: 98-107 K 3.9 mmol/L (Normal) Range: 3.5-5.1 NA 137 mmol/L (Normal) Range: 136-145 CA 9.4 mg/dL (Normal) Range: 8.5-10.1 BUN/CRE 35.5 {RATIO} (Abnormal) Range: 10-20 EST GFR - AA 113 mL/min (Normal) Comments: GFR Calc EST GFR 94 mL/min (Normal) Comments: Non- GFR Calc CREAT,SERUM 0.65 mg/dL (Normal) Range: 0.55-1.02 Comments: The validity of the calculated GFR AND GFRAA in patients over70 years has not been determined. Clinical correlation isessential. BUN 23 mg/dL (Abnormal) Range: 7-18 GLU 103 mg/dL (Normal) Range: 70-110 [id number]-Stf-[id number]:00 Magnesium Comments: [facility] [address] [place], [phone]) MG 1.8 mg/dL (Normal) Range: 1.8-2.4 2-Tcs-247963:00 Potassium Comments: [facility] [address] [place], [id number]) K 3.4 mmol/L (Abnormal) Range: 3.5-5.1 4-Lbu-373215:18 CBC W/Diff, Automated Comments: [address] [place], [phone]) Absolute Lymph 1.22 {X10_3/ul} (Normal) Range: 0.83-4.51 Absolute Neut 6.4 {X10_3/uL} (Normal) Range: 2.0-7.7 IM GRAN % 0.600 % (Normal) Range: 0.0-0.9 Comments: IG% - Immature Granulocytes (promyelocytes, myelocytes andmetamyelocytes) > 1% indicates that a LEFT SHIFT is Present. BASO% 0.2 % (Normal) Range: 0-1 EO% 1.2 % (Normal) Range: 0-5 MONO% 11.7 % (Abnormal) Range: 0-10 LY% 13.7 % (Abnormal) Range: 19-41 NEUT% 72.6 % (Abnormal) Range: 47-70 MPV 10.0 fL (Normal) Range: 6.2-12.0 PLT 228 K/mm3 (Normal) Range: 150-450 RDW SD 44.1 fL (Abnormal) Range: 35.1-43.9 RDW CV 13.1 % (Normal) Range: 11.6-14.6 MCHC 31.0 {g/gl} (Abnormal) Range: 32-36 MCH 29.2 pg (Normal) Range: 27.0-32.0 MCV 94.3 fL (Normal) Range: 81-99 HCT 41.0 % (Normal) Range: 37-47 HGB 12.7 g/dL (Normal) Range: 12.0-15.0 RBC 4.35 {M/mm3} (Normal) Range: 4.2-5.4 WBC 8.9 K/mm3 (Normal) Range: 4.4-11.0 4-Txz-[id number]:05 Comprehensive Metabolic Profil Comments: Reason for Laboratory Test .[facility] [address] [place], [address] GAP 3 (Abnormal) Range: 5-15 CO2 40.0 mmol/L (Abnormal) Range: 21.0-32.0 CL 95 mmol/L (Abnormal) Range: 98-107 K 3.4 mmol/L (Abnormal) Range: 3.5-5.1 NA 138 mmol/L (Normal) Range: 136-145 T BILI 0.40 mg/dL (Normal) Range: 0.20-1.00 ALT 18 U/L (Normal) Range: 12-78 ALK P 73 U/L (Normal) Range: 45-117 AST 28 U/L (Normal) Range: 15-37 CA 9.3 mg/dL (Normal) Range: 8.5-10.1 A/G 1.0 {RATIO} (Normal) Range: 0.9-2.4 GLOB 3.5 g/dL (Normal) Range: 2.2-4.2 ALB 3.5 g/dL (Normal) Range: 3.4-5.0 Comments: Please note revised Albumin AND Globulin reference rangeeffective 2017. T PROT 7.0 g/dL (Normal) Range: 6.4-8.2 BUN/CRE 41.7 {RATIO} (Abnormal) Range: 10-20 EST GFR - AA 108 mL/min (Normal) Comments: GFR Calc EST GFR 90 mL/min (Normal) Comments: Non- GFR Calc CREAT,SERUM 0.67 mg/dL (Normal) Range: 0.55-1.02 Comments: The validity of the calculated GFR AND GFRAA in patients over70 years has not been determined. Clinical correlation isessential. BUN 28 mg/dL (Abnormal) Range: 7-18 GLU 93 mg/dL (Normal) Range: 70-110 0-Qwy-[id number]:05 Ferritin Comments: Reason for Laboratory Test .[facility] [address] [facility] [address] [place], [place], [id number] FERRITIN 311 ng/mL (Abnormal) Range: 8-252 [id number]-Cga-[id number]:05 Iron+Iron Binding Capacity Comments: Reason for Laboratory Test .[facility] [address] [place], [place], [address] IRON SATURATION 16.5 % (Normal) Range: 15.0-55.0 IRON 53 ug/dL (Normal) Range: 50-170 TIBC 322 ug/dL (Normal) Range: 250-450 72-Jee-035841:36 CBC W/Diff, Automated Comments: [facility] [address] [facility] [address] [place], [place], [id number] Absolute Lymph 1.34 {X10_3/ul} (Normal) Range: 0.83-4.51 Absolute Neut 5.5 {X10_3/uL} (Normal) Range: 2.0-7.7 IM GRAN % 0.700 % (Normal) Range: 0.0-0.9 Comments: IG% - Immature Granulocytes (promyelocytes, myelocytes andmetamyelocytes) > 1% indicates that a LEFT SHIFT is Present. BASO% 0.5 % (Normal) Range: 0-1 EO% 1.2 % (Normal) Range: 0-5 MONO% 13.6 % (Abnormal) Range: 0-10 LY% 16.6 % (Abnormal) Range: 19-41 NEUT% 67.4 % (Normal) Range: 47-70 MPV 10.1 fL (Normal) Range: 6.2-12.0 PLT 229 K/mm3 (Normal) Range: 150-450 RDW SD 42.8 fL (Normal) Range: 35.1-43.9 RDW CV 12.8 % (Normal) Range: 11.6-14.6 MCHC 32.0 {g/gl} (Normal) Range: 32-36 MCH 29.7 pg (Normal) Range: 27.0-32.0 MCV 93.0 fL (Normal) Range: 81-99 HCT 43.8 % (Normal) Range: 37-47 HGB 14.0 g/dL (Normal) Range: 12.0-15.0 RBC 4.71 {M/mm3} (Normal) Range: 4.2-5.4 WBC 8.1 K/mm3 (Normal) Range: 4.4-11.0 92-Ktt-[id number]:36 Comprehensive Metabolic Profil Comments: [facility] for [facility] [address] [place], [address] GAP 8 (Normal) Range: 5-15 CO2 38.0 mmol/L (Abnormal) Range: 21.0-32.0 CL 92 mmol/L (Abnormal) Range: 98-107 K 3.3 mmol/L (Abnormal) Range: 3.5-5.1 NA 138 mmol/L (Normal) Range: 136-145 T BILI 0.30 mg/dL (Normal) Range: 0.20-1.00 ALT 24 U/L (Normal) Range: 12-78 ALK P 73 U/L (Normal) Range: 45-117 AST 30 U/L (Normal) Range: 15-37 CA 9.3 mg/dL (Normal) Range: 8.5-10.1 A/G 1.0 {RATIO} (Normal) Range: 0.9-2.4 GLOB 3.6 g/dL (Abnormal) Range: 2.3-3.5 ALB 3.5 g/dL (Normal) Range: 3.4-5.0 T PROT 7.1 g/dL (Normal) Range: 6.4-8.2 BUN/CRE 29.7 {RATIO} (Abnormal) Range: 10-20 EST GFR - AA 103 mL/min (Normal) Comments: GFR Calc EST GFR 85 mL/min (Normal) Comments: Non- GFR Calc CREAT,SERUM 0.71 mg/dL (Normal) Range: 0.55-1.02 Comments: The validity of the calculated GFR AND GFRAA in patients over70 years has not been determined. Clinical correlation isessential. BUN 21 mg/dL (Abnormal) Range: 7-18 GLU 80 mg/dL (Normal) Range: 70-110 [id number] Ferritin Comments: [facility] for Laboratory [facility] [id number] [place], [place], [phone] FERRITIN 249 ng/mL (Normal) Range: 8-252 [id number] Iron Comments: Reason for Laboratory Test [facility] [id number] [place], [place], [id number] IRON 69 ug/dL (Normal) Range: 50-170 0-Yuu-008457:40 CBC W/Diff, Automated Comments: [facility] W[address]ws[address] [facility] [place], [place], [id number] Absolute Lymph 1.03 {X10_3/ul} (Normal) Range: 0.83-4.51 Absolute Neut 6.5 {X10_3/uL} (Normal) Range: 2.0-7.7 IM GRAN % 1.100 % (Abnormal) Range: 0.0-0.9 Comments: IG% - Immature Granulocytes (promyelocytes, myelocytes andmetamyelocytes) > 1% indicates that a LEFT SHIFT is Present. BASO% 0.6 % (Normal) Range: 0-1 EO% 1.3 % (Normal) Range: 0-5 MONO% 13.0 % (Abnormal) Range: 0-10 LY% 11.5 % (Abnormal) Range: 19-41 NEUT% 72.5 % (Abnormal) Range: 47-70 MPV 9.8 fL (Normal) Range: 6.2-12.0 PLT 222 K/mm3 (Normal) Range: 150-450 RDW SD 44.5 fL (Abnormal) Range: 35.1-43.9 RDW CV 13.3 % (Normal) Range: 11.6-14.6 MCHC 31.5 {g/gl} (Abnormal) Range: 32-36 MCH 29.7 pg (Normal) Range: 27.0-32.0 MCV 94.3 fL (Normal) Range: 81-99 HCT 41.3 % (Normal) Range: 37-47 HGB 13.0 g/dL (Normal) Range: 12.0-15.0 RBC 4.38 {M/mm3} (Normal) Range: 4.2-5.4 WBC 8.9 K/mm3 (Normal) Range: 4.4-11.0 8-Stv-133054:40 Comprehensive Metabolic Profil Comments: Reason for Laboratory Test [facility] Yqxbrxbfsj4433 [facility] [place], [place], [address] GAP 3 (Abnormal) Range: 5-15 CO2 40.0 mmol/L (Abnormal) Range: 21.0-32.0 CL 95 mmol/L (Abnormal) Range: 98-107 K 3.9 mmol/L (Normal) Range: 3.5-5.1 NA 138 mmol/L (Normal) Range: 136-145 T BILI 0.30 mg/dL (Normal) Range: 0.20-1.00 ALT 23 U/L (Normal) Range: 12-78 ALK P 72 U/L (Normal) Range: 45-117 AST 24 U/L (Normal) Range: 15-37 CA 8.7 mg/dL (Normal) Range: 8.5-10.1 A/G 0.9 {RATIO} (Normal) Range: 0.9-2.4 GLOB 3.5 g/dL (Normal) Range: 2.3-3.5 ALB 3.3 g/dL (Abnormal) Range: 3.4-5.0 T PROT 6.8 g/dL (Normal) Range: 6.4-8.2 BUN/CRE 33.2 {RATIO} (Abnormal) Range: 10-20 EST GFR - AA 105 mL/min (Normal) Comments: GFR Calc EST GFR 87 mL/min (Normal) Comments: Non- GFR Calc CREAT,SERUM 0.69 mg/dL (Normal) Range: 0.55-1.02 Comments: The validity of the calculated GFR AND GFRAA in patients over70 years has not been determined. Clinical correlation isessential. BUN 23 mg/dL (Abnormal) Range: 7-18 GLU 71 mg/dL (Normal) Range: 70-110 9-Vwh-253415:40 Ferritin Comments: Reason for Laboratory Test [facility] [address]ceunkk[address] [place], [place], [address] FERRITIN 178 ng/mL (Normal) Range: 8-252 8-Mkl-538478:40 Iron Comments: Reason for Laboratory Test [facility] [address] [place], [place], [address] IRON 59 ug/dL (Normal) Range: 50-170 72-Zbg-489484:12 CALCIFIDIOL (07704) VIT D 25 Comments: PATIENT WAS FASTINGPERFORMED BY: [facility] Ghxcod5332 [facility] [id number] Vitamin D, 25-Hydroxy 21.8 ng/mL (Abnormal) Range: 30.0-100.0 Comments: Vitamin D deficiency has been defined by the [place] ofMedicine and an Endocrine Society practice guideline as alevel of serum 25-OH vitamin D less than 20 ng/mL (1,2).The Endocrine Society went on to further define vitamin Dinsufficiency as a level between 21 and 29 ng/mL (2).1. IOM ([place] of Medicine). 2010. Dietary reference intakes for calcium and D. [place]: The National Academies Press.2. Armond MF, Rosa [place], Kyler ANDREWS, et al. Evaluation, treatment, and prevention of vitamin D deficiency: an Endocrine Society clinical practice guideline. JCEM. 2010; 96(7):0191-30. 49-Pie-088932:12 VITAMIN B-12 (CYANOCOBALAMIN) Comments: PATIENT WAS FASTINGPERFORMED BY: [facility] Nnidon5464 [facility] [id number] ([address]) Vitamin B12 517 pg/mL (Normal) Range: 211-946 23-Fyx-934699:12 TSH (33957) Comments: PATIENT WAS FASTINGPERFORMED BY: [facility]6370 [facility] [id number] TSH 1.500 {uIU/mL} (Normal) Range: 0.450-4.500 :12 METABOLIC PANEL, COMPREHENSIVE Comments: PATIENT WAS FASTINGPERFORMED BY: [facility] Mvaqpx2225 [facility] [id number] (50033) ALT (SGPT) 14 [iU]/L (Normal) Range: 0-32 AST (SGOT) 29 [iU]/L (Normal) Range: 0-40 Alkaline Phosphatase, S 72 [iU]/L (Normal) Range: 39-117 Bilirubin, Total 0.3 mg/dL (Normal) Range: 0.0-1.2 A/G Ratio 1.9 (Normal) Range: 1.2-2.2 Globulin, Total 2.3 g/dL (Normal) Range: 1.5-4.5 Albumin, Serum 4.3 g/dL (Normal) Range: 3.5-4.7 Protein, Total, Serum 6.6 g/dL (Normal) Range: 6.0-8.5 Calcium, Serum 9.6 mg/dL (Normal) Range: 8.7-10.3 Carbon Dioxide, Total 35 mmol/L (Abnormal) Range: 18-29 Chloride, Serum 90 mmol/L (Abnormal) Range: 96-106 Potassium, Serum 3.6 mmol/L (Normal) Range: 3.5-5.2 Sodium, Serum 141 mmol/L (Normal) Range: 134-144 BUN/Creatinine Ratio 31 (Abnormal) Range: 12-28 eGFR If Africn Am 98 mL/min/1.73 (Normal) eGFR If NonAfricn Am 85 mL/min/1.73 (Normal) Creatinine, Serum 0.62 mg/dL (Normal) Range: 0.57-1.00 BUN 19 mg/dL (Normal) Range: 8-27 Glucose, Serum 83 mg/dL (Normal) Range: 65-99 96-Psu-331903:12 LIPID PANEL (47563) Comments: PATIENT WAS FASTINGPERFORMED BY: [facility] Rghprw9395 [address] [place] [id number] LDL/HDL Ratio 1.0 {ratio_units} (Normal) Range: 0.0-3.2 Comments: LDL/HDL Ratio Men Women 1/2 Avg.Risk 1.0 1.5 Av g.Risk 3.6 3.2 2X Avg.Risk 6.2 5.0 3X Avg.Risk 8.0 6.1 LDL Cholesterol Calc 77 mg/dL (Normal) Range: 0-99 VLDL Cholesterol Pete 18 mg/dL (Normal) Range: 5-40 HDL Cholesterol 78 mg/dL (Normal) Triglycerides 89 mg/dL (Normal) Range: 0-149 Cholesterol, Total 173 mg/dL (Normal) Range: 100-199 21-Ral-305211:09 CBC W/Diff, Auto - EPLAB Comments: At [facility] Outpatient [facility] Medical Oncologypatients receive CBC w/auto Differential ONLY. Physicianwill place an order for a manual differential or Pathologistreview at his discretion. [facility] [place] OUTPATIENT [facility]. [address] [place] [address] [address] AUTOMOTIVE SALES SPECIALIST: KURTIS STEVENS DO PH:[phone] Hospital [address]xdjd[address] [place], [place], [id number] Absolute Lymph 1.19 {X10_3/uL} (Normal) Range: 0.83-4.51 Absolute Neut 7.0 {X10_3/uL} (Normal) Range: 2.0-7.7 BASO% 1.2 % (Abnormal) Range: 0-1 EO% 0.9 % (Normal) Range: 0-5 MONO% 6.9 % (Normal) Range: 0-10 LY% 13.2 % (Abnormal) Range: 19-41 NEUT% 77.8 % (Abnormal) Range: 47-70 MPV 6.7 fL (Normal) Range: 6.2-12.0 PLT 245 K/mm3 (Normal) Range: 150-450 RDW 16.7 % (Abnormal) Range: 11.6-14.6 MCHC 32.2 g/dL (Normal) Range: 32-36 MCH 29.8 pg (Normal) Range: 27.0-32.0 MCV 92.7 fL (Normal) Range: 81-99 HCT 47.2 % (Abnormal) Range: 37-47 HGB 15.2 g/dL (Abnormal) Range: 12.0-15.0 RBC 5.09 {M/mm3} (Normal) Range: 4.2-5.4 WBC 9.0 K/mm3 (Normal) Range: 4.4-11.0 93-Zwx-784643:10 CBC W/Diff, Automated Comments: [facility] [address] [place], [place], [address] Absolute Lymph 0.80 {X10_3/ul} (Abnormal) Range: 0.83-4.51 Absolute Neut 4.3 {X10_3/uL} (Normal) Range: 2.0-7.7 IM GRAN % 0.500 % (Normal) Range: 0.0-0.9 Comments: IG% - Immature Granulocytes (promyelocytes, myelocytes andmetamyelocytes) > 1% indicates that a LEFT SHIFT is Present. BASO% 1.1 % (Abnormal) Range: 0-1 EO% 2.6 % (Normal) Range: 0-5 MONO% 13.3 % (Abnormal) Range: 0-10 LY% 13.0 % (Abnormal) Range: 19-41 NEUT% 69.5 % (Normal) Range: 47-70 MPV 10.9 fL (Normal) Range: 6.2-12.0 PLT 274 K/mm3 (Normal) Range: 150-450 RDW SD 61.2 fL (Abnormal) Range: 35.1-43.9 RDW CV 18.0 % (Abnormal) Range: 11.6-14.6 MCHC 30.7 {g/gl} (Abnormal) Range: 32-36 MCH 29.0 pg (Normal) Range: 27.0-32.0 MCV 94.6 fL (Normal) Range: 81-99 HCT 45.3 % (Normal) Range: 37-47 HGB 13.9 g/dL (Normal) Range: 12.0-15.0 RBC 4.79 {M/mm3} (Normal) Range: 4.2-5.4 WBC 6.2 K/mm3 (Normal) Range: 4.4-11.0 98-Ulu-360934:25 CBC W/Diff, Auto - EPLAB Comments: At [facility] Outpatient [facility] Medical Oncologypatients receive CBC w/auto Differential ONLY. Physicianwill place an order for a manual differential or Pathologistreview at his discretion. [facility] [place] OUTPATIENT [facility]. [address] [place] [address] [address] AUTOMOTIVE SALES SPECIALIST: KURTIS STEVENS DO PH:[phone] Hospital [address] [place], [address] Absolute Lymph 0.75 {X10_3/uL} (Abnormal) Range: 0.83-4.51 Absolute Neut 6.0 {X10_3/uL} (Normal) Range: 2.0-7.7 BASO% 1.4 % (Abnormal) Range: 0-1 EO% 0.0 % (Normal) Range: 0-5 MONO% 9.7 % (Normal) Range: 0-10 LY% 9.8 % (Abnormal) Range: 19-41 NEUT% 79.0 % (Abnormal) Range: 47-70 MPV 7.0 fL (Normal) Range: 6.2-12.0 PLT 312 K/mm3 (Normal) Range: 150-450 RDW 17.8 % (Abnormal) Range: 11.6-14.6 MCHC 30.6 g/dL (Abnormal) Range: 32-36 MCH 28.7 pg (Normal) Range: 27.0-32.0 MCV 93.8 fL (Normal) Range: 81-99 HCT 42.3 % (Normal) Range: 37-47 HGB 12.9 g/dL (Normal) Range: 12.0-15.0 RBC 4.51 {M/mm3} (Normal) Range: 4.2-5.4 WBC 7.7 K/mm3 (Normal) Range: 4.4-11.0 8-Wnu-382486:50 Urinalysis, Complete Comments: How was Urine Obtained? FOUNDER AND CEO TO SPECIFYPro[facility] Hospital [address]pasg[address], [place], [id number] MUCUS, URINE 0 SEEN {/hpf} (Normal) BACTERIA RARE {/hpf} (Normal) SQUAM EPI 0-5 SEEN {/hpf} (Normal) Range: 5-10 RBC-UA 0 SEEN {/hpf} (Normal) Range: 0-5 WBC 0 SEEN {/hpf} (Normal) Range: 0-5 LEUK ESTERASE Negative /ul (Normal) OCCULT BLOOD-UR Negative /ul (Normal) NITRITE UR Negative (Normal) UROBILI Normal mg/dL (Normal) PROT DIPSTX Negative mg/dL (Normal) pH UR 6.5 (Normal) Range: 5.0 - 8.0 SP.GR. DIPSTX 1.015 (Normal) Range: 1.002-1.030 KETONE UR Negative mg/dL (Normal) BILIRUBIN URINE Negative mg/dL (Normal) GLUCOSE, UR Normal mg/dL (Normal) CLARITY Sl. Cloudy (Normal) COLOR Yellow (Normal) 8-Fud-723168:00 Basic Metabolic Profile (BMP) Comments: [facility] Lxuvhpuvcy0331 [facility]. [place], [place], [id number] GAP 6 (Normal) Range: 5-15 CO2 38.0 mmol/L (Abnormal) Range: 21.0-32.0 CL 95 mmol/L (Abnormal) Range: 98-107 K 3.3 mmol/L (Abnormal) Range: 3.5-5.1 NA 139 mmol/L (Normal) Range: 136-145 CA 8.1 mg/dL (Abnormal) Range: 8.5-10.1 BUN/CRE 27.6 {RATIO} (Abnormal) Range: 10-20 Estimated CRCL 36.08 ml/min (Normal) EST GFR - AA 100 mL/min (Normal) Comments: GFR Calc EST GFR 83 mL/min (Normal) Comments: Non- GFR Calc CREAT,SERUM 0.72 mg/dL (Normal) Range: 0.55-1.20 Comments: The validity of the calculated GFR AND GFRAA in patients over70 years has not been determined. Clinical correlation isessential. BUN 20 mg/dL (Abnormal) Range: 7-18 GLU 101 mg/dL (Normal) Range: 70-110 7-Vem-354278:00 CBC W/Diff, Automated Comments: [facility] [address] [place], [address] Absolute Lymph 0.60 {X10_3/ul} (Abnormal) Range: 0.83-4.51 Absolute Neut 5.9 {X10_3/uL} (Normal) Range: 2.0-7.7 IM GRAN % 0.800 % (Normal) Range: 0.0-0.9 Comments: IG% - Immature Granulocytes (promyelocytes, myelocytes andmetamyelocytes) > 1% indicates that a LEFT SHIFT is Present. BASO% 0.5 % (Normal) Range: 0-1 EO% 0.9 % (Normal) Range: 0-5 MONO% 12.9 % (Abnormal) Range: 0-10 LY% 7.9 % (Abnormal) Range: 19-41 NEUT% 77.0 % (Abnormal) Range: 47-70 MPV 9.6 fL (Normal) Range: 6.2-12.0 PLT 428 K/mm3 (Normal) Range: 150-450 RDW SD 57.5 fL (Abnormal) Range: 35.1-43.9 RDW CV 17.9 % (Abnormal) Range: 11.6-14.6 MCHC 28.8 {g/gl} (Abnormal) Range: 32-36 MCH 26.7 pg (Abnormal) Range: 27.0-32.0 MCV 92.5 fL (Normal) Range: 81-99 HCT 22.2 % (Abnormal) Range: 37-47 HGB 6.4 g/dL (Abnormal) Range: 12.0-15.0 RBC 2.40 {M/mm3} (Abnormal) Range: 4.2-5.4 WBC 7.6 K/mm3 (Normal) Range: 4.4-11.0 :30 Miscellaneous Lab Procedure Comments: Comments: [id number], [id number](s) Ordered: Flow [id number] Test(s) Ordered by Physician: Cytogenetics [id number] [facility] [address]qchlk[address] [place], [place], [id number] [facility] FLOW-SEE PTH (Normal) :30 Miscellaneous Lab Procedure 2 Comments: Comments: [id number], [id number](s) Ordered: Flow [id number] Test(s) Ordered by Physician: Cytogenetics [id number] Hospital [address]ktfsixa[address] [place], [place], [address] [facility] 2 CYTO-SEE PTH (Normal) :03 CBC W/Diff, Auto - EPLAB Comments: At [facility] Outpatient [facility] Medical Oncologypatients receive CBC w/auto Differential ONLY. Physicianwill place an order for a manual differential or Pathologistreview at his discretion. [facility] [place] OUTPATIENT [facility]. [address] [place] [address] [place] [address] AUTOMOTIVE SALES SPECIALIST: KURTIS STEVENS DO PH:[phone] Hospital [address]aclug[address] [place], [place], [address] Absolute Lymph 0.74 {X10_3/uL} Range: 0.83-4.51 (Abnormal) Absolute Neut 8.7 {X10_3/uL} Range: 2.0-7.7 (Abnormal) BASO% 1.2 % (Abnormal) Range: 0-1 EO% 0.0 % (Normal) Range: 0-5 MONO% 11.1 % (Abnormal) Range: 0-10 LY% 6.9 % (Abnormal) Range: 19-41 NEUT% 80.8 % (Abnormal) Range: 47-70 MPV 6.9 fL (Normal) Range: 6.2-12.0 PLT 332 K/mm3 (Normal) Range: 150-450 RDW 18.9 % (Abnormal) Range: 11.6-14.6 MCHC 30.7 g/dL (Abnormal) Range: 32-36 MCH 29.1 pg (Normal) Range: 27.0-32.0 MCV 94.8 fL (Normal) Range: 81-99 HCT 26.9 % (Abnormal) Range: 37-47 HGB 8.3 g/dL (Abnormal) Range: 12.0-15.0 RBC 2.84 {M/mm3} Range: 4.2-5.4 (Abnormal) WBC 10.8 K/mm3 (Normal) Range: 4.4-11.0 :0 BONE MARROW BIOPSY See Note (Normal) Comments: [facility] [address] [place], [address] 0 Comments: Patient: KILEY DREW : 1935 (80/F) Acct Num: [id number] Phys: Devon Jenkins Unit Num: [id number] Loc: [facility] Specimen: [id number] Received: 11/26/15 - 50 Spec Type: BMB TISSUES TISSUES: ADDENDUM Addendum Number 1 CYTOGENETICS REPORT FROM [facility] CYTOGENETIC RESULT: 46,XX[20] INTERPRETATION: Normal female karyotype was observed in twenty m etaphases analyzed. Please see complete report in e-chart or EMR for further details Addendum Signed Kurtis [facility] 12/05/15 <signa maria victoria on file> BONE MARROW GROSS A - Received is a container labeled with the patient's name and designated lefthip. The specimen consists of multiple fragments of byers bone measuring 0.3 and0 .5 cm in length and 0.2 cm in diameter. The entire specimen is submitted in onecassette after decalcification. B - Received labeled with the patient's name and designated left hip is a specimen rec eived in two syringes that consists of approximately 5 cc of bloody fluid that on filtration yields multiple minute fragments of blood clots measuring in aggregate 2.5 x 1.5 x 0.1 cm. The specimen is t otally submitted inone cassette. C - Also received are 12 unstained and 1 stained slides. The unstained slides are submitted for appropriate staining. Also received are three green top tubes which are sent to our reference lab forflow cytometry and cytogenetics. / TIFFANIE:manas 11/26/15 TC:0 CPT: 31808, 49309, 30495 x2, 22489 x3, 61928 BONE MARROW STUDY Slides are reviewed. CBC DATE: 11/26/15 WBC 10.8; RBC 2.84; HGB 8.26; HCT 26.9; MCV 94.8; RDW 18.9; PLTS 332,000 SEGS 75%; LYMPHS 6.64%; MONOS 10.2%; EOS 0%; BASOS 0%, BANDS 4.78% PERIPHERAL SMEAR: Submitted. RBC: Normocytic ane edel WBC: Normomorphic PLTS: Normomorphic BONE MARROW ASPIRATE DIFFERENTIAL: 200 cell count. Blasts % (normal 0-2): 2 Promyelocytes % (normal 1-5): 4 Myelocytes and metamyelocytes % (shweta l 17-41): 20 Bands and Segs % (normal 15-32): 32 Eos % (normal 1-6): 0 Basos % (normal 0-1): 1 Monocytes % (normal 0-4): 2 Erythroid Precursors % (normal 17-35): 24 Lymphocytes % (no rmal 7-13): 13 Plasma Cells % (normal 0-2): 2 ASPIRATE FINDINGS: Site: Left hip Aspicular Hypocellular M/E ratio: 2.54 (Normal 1.5 - 4.0) Megakaryocytes: Normomorphic Erythropoiesis: Ri ng sideroblasts present Granulopoiesis: Progressive maturation Other findings: Hemodilute aspirate CORE BIOPSY FINDINGS: Site: Left hip Adequacy: Adequate Cellularity %: 30% M/E ratio: WN L Megakaryocytes: Adequate Bony trabeculae: WNL Granulomas: 0 Lymphoid aggregate(s): A single, nonparatrabecular lymphoid aggregate (polytypic by IHC). Atypical infiltrate(s): See above. PIRATE CLOT FINDINGS: Site: Left hip Marrow Particles: Many Cellularity %: 30% M/E ratio: WNL Megakaryocytes: Adequate Granuloma(s): 0 Lymphoid aggregate(s): 0 Atypical infiltrate(s): 0 SPECIAL STAINS (with matched controls): Iron: Increased 2-3/4 with ring sideroblasts Reticulin: WNL PAS: Highlights myeloid elements and megakaryocytes. COMMENT Flow analysis reveals no s ignificant immunophenotypic abnormality. Cytogenetic studies are pending and will be reported as an addendum. Case has been reviewed in consultation with Dr. Smith who concurs with the abovediagnos is. IDC:SJ BONE MARROW DIAGNOSIS Bone marrow biopsy, clot and aspiration: Normocellular bone marrow. 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 AM:manas 11/28/15 HEADER OPERATION: Bone marrow biopsy and aspiration PRE-OP DIAGNOSIS: Anemia TISSUE SUBMITTED: A - Core, B - Clot, C - Smears, and send outs (flow and cytogenetics) Signed Kurtis [facility] 11/29/15 <signature on file> :0 IMMUNOHISTOCHEMISTRY See Note (Normal) Comments: [facility] [address] [place], [address] 0 Comments: Patient: KILEY DREW : 1935 (80/F) Acct Num: [id number] Phys: Devon Jenkins Unit Num: [id number] Loc: [facility] Specimen: [id number] Received: 11/27/15 - 1310 Spec Type: IMMUNO TISSUES TISSUES: SPECIMEN INFORMATION: Tissue Source: Bone marrow biopsy and aspiration Clinical Info: Anemia Specimen Number: [id number] CPT code: 65802, 57584 x14 METHOD OLOGY: Deparaffinized sections of prefer/formalin-fixed tissue or PAP/DQ stained slides are incubated with monoclonal/polyclonal antibodies/oligonucleotide probes. Localization is made via biotin godfrey e immunoperoxidase method. Appropriate controls are performed and reacted as expected. Results on target cell population are indicated in the following table: RESULTS: ANTIBODY / CLONE RESULT Block A CD3 (PS1) positive CD5 (SP10) positive CD20 (L26) positive CD43 (L60) positive CD45 (RP2/18) positive CD79a (11E3) positive CD138 (B-A38) negative [place] (polyclonal) negative Lambda (polyclonal) negative CD10 (56C6) negative CD23 (1B12) negative BCL-2 (bcl-2/100/D5) negative BCL-6 (FN208X/A8) negative [place] D1/BCL-1 (SP4) negative Ki-67 (30-9) negative These tests were developed and their performance characteristics determined by [facility]. They may not have been cleare d or approved by the U.S. Food and Drug Administration. The FDA has determined that such clearance or approval is not necessary. INTERPRETATION: A. Bone marrow core: Polytypic (benign) lymphoid aggregate. Case has been reviewed in consultation with Dr. Smith who concurs with the abovediagnosis. IDC:TIFFANIE AM:manas 11/28/15 PHYSICIAN AND INSTITUTION [facility] [address] [place], [place] [address] Signed Kurtis Stevens 11/28/15 <signature on file> 63-Lzi-201330:37 Basic Metabolic Profile (BMP) Comments: [facility] [address] [place], [place], [id number] GAP 6 (Normal) Range: 5-15 CO2 36.0 mmol/L (Abnormal) Range: 21.0-32.0 CL 97 mmol/L (Abnormal) Range: 98-107 K 3.7 mmol/L (Normal) Range: 3.5-5.1 NA 139 mmol/L (Normal) Range: 136-145 CA 8.0 mg/dL (Abnormal) Range: 8.5-10.1 BUN/CRE 36.5 {RATIO} (Abnormal) Range: 10-20 EST GFR - AA 112 mL/min (Normal) Comments: GFR Calc EST GFR 92 mL/min (Normal) Comments: Non- GFR Calc CREAT,SERUM 0.66 mg/dL (Normal) Range: 0.55-1.20 Comments: The validity of the calculated GFR AND GFRAA in patients over70 years has not been determined. Clinical correlation isessential. BUN 24 mg/dL (Abnormal) Range: 7-18 GLU 90 mg/dL (Normal) Range: 70-110 45-Idx-662058:36 CBC W/Diff, Auto - EPLAB Comments: At [facility] Outpatient [facility] Medical Oncologypatients receive CBC w/auto Differential ONLY. Physicianwill place an order for a manual differential or Pathologistreview at his discretion. [facility] OUTPATIENT [facility]. [address] [place] [address] [place] [address] AUTOMOTIVE SALES SPECIALIST: KURTIS STEVENS DO PH:[phone] [facility] [address] [place], [place], [id number] Absolute Lymph 0.96 {X10_3/uL} (Normal) Range: 0.83-4.51 Absolute Neut 8.8 {X10_3/uL} (Abnormal) Range: 2.0-7.7 BASO% 1.3 % (Abnormal) Range: 0-1 EO% 0.3 % (Normal) Range: 0-5 MONO% 9.6 % (Normal) Range: 0-10 LY% 8.7 % (Abnormal) Range: 19-41 NEUT% 80.0 % (Abnormal) Range: 47-70 MPV 6.2 fL (Normal) Range: 6.2-12.0 PLT 318 K/mm3 (Normal) Range: 150-450 RDW 19.1 % (Abnormal) Range: 11.6-14.6 MCHC 29.7 g/dL (Abnormal) Range: 32-36 MCH 26.8 pg (Abnormal) Range: 27.0-32.0 MCV 90.3 fL (Normal) Range: 81-99 HCT 30.3 % (Abnormal) Range: 37-47 HGB 9.0 g/dL (Abnormal) Range: 12.0-15.0 RBC 3.36 {M/mm3} (Abnormal) Range: 4.2-5.4 WBC 11.0 K/mm3 (Normal) Range: 4.4-11.0 :25 Basic Metabolic Profile (BMP) Comments: [facility] [address] [place], [address] GAP 2 (Abnormal) Range: 5-15 CO2 38.0 mmol/L (Abnormal) Range: 21.0-32.0 CL 94 mmol/L (Abnormal) Range: 98-107 K 3.2 mmol/L (Abnormal) Range: 3.5-5.1 NA 134 mmol/L (Abnormal) Range: 136-145 CA 8.3 mg/dL (Abnormal) Range: 8.5-10.1 BUN/CRE 30.2 {RATIO} (Abnormal) Range: 10-20 Estimated CRCL 36.08 ml/min (Normal) EST GFR - AA 111 mL/min (Normal) Comments: GFR Calc EST GFR 91 mL/min (Normal) Comments: Non- GFR Calc CREAT,SERUM 0.66 mg/dL (Normal) Range: 0.55-1.20 Comments: The validity of the calculated GFR AND GFRAA in patients over70 years has not been determined. Clinical correlation isessential. BUN 20 mg/dL (Abnormal) Range: 7-18 GLU 102 mg/dL (Normal) Range: 70-110 29-Wgt-414370:15 Comments: [facility] - refer to report for specific site [id number] TRANSFUSED PRODUCT: T AND S with Crossmatch, Red Cells COUNT: 2 (Normal) 12-Pav-156446:15 Type AND Screen Comments: CMV NEG?* NGive When? When ReadyIrradiated? YLeukodepleted? YReason for Type AND Screen/Red Cells: [facility] [address] [place], [address] Antibody Screen NEGATIVE (Normal) BLOOD TYPE GEL A POSITIVE (Normal) 84-Hna-597832:15 Type AND Screen Comments: CMV NEG?* NGive When? When ReadyIrradiated? YLeukodepleted? YReason for Type AND Screen/Red Cells: [facility] [id number] [place], [address] ; Managed by Devon Jenkins Antibody Screen NEGATIVE (Normal) BLOOD TYPE GEL A POSITIVE (Normal) 12-Ahu-[id number]:03 CBC W/Diff, Auto - EPLAB Comments: At [facility] Outpatient [facility] Medical Oncologypatients receive CBC w/auto Differential ONLY. Physicianwill place an order for a manual differential or Pathologistreview at his discretion. [facility] [place] OUTPATIENT [facility]. [address] [place] [address] [place] [address] [employer] SPECIALIST: KURTIS STEVENS DO PH:[phone] [id number] [place], [address] Absolute Lymph 0.65 {X10_3/uL} (Abnormal) Range: 0.83-4.51 Absolute Neut 7.8 {X10_3/uL} (Abnormal) Range: 2.0-7.7 BASO% 0.8 % (Normal) Range: 0-1 EO% 0.1 % (Normal) Range: 0-5 MONO% 10.6 % (Abnormal) Range: 0-10 LY% 6.8 % (Abnormal) Range: 19-41 NEUT% 81.8 % (Abnormal) Range: 47-70 MPV 6.1 fL (Abnormal) Range: 6.2-12.0 PLT 299 K/mm3 (Normal) Range: 150-450 RDW 20.4 % (Abnormal) Range: 11.6-14.6 MCHC 31.0 g/dL (Abnormal) Range: 32-36 MCH 27.9 pg (Normal) Range: 27.0-32.0 MCV 90.1 fL (Normal) Range: 81-99 HCT 26.1 % (Abnormal) Range: 37-47 HGB 8.1 g/dL (Abnormal) Range: 12.0-15.0 RBC 2.90 {M/mm3} (Abnormal) Range: 4.2-5.4 WBC 9.6 K/mm3 (Normal) Range: 4.4-11.0 21-[id number]:05 Comprehensive Metabolic Profil Comments: Serial Specimen #1, #2 or #3? [facility] [id number] [place], [place], [id number] GAP 5 (Normal) Range: 5-15 CO2 40.0 mmol/L (Abnormal) Range: 21.0-32.0 CL 91 mmol/L (Abnormal) Range: 98-107 K 2.9 mmol/L (Abnormal) Range: 3.5-5.1 NA 136 mmol/L (Normal) Range: 136-145 T BILI 0.30 mg/dL (Normal) Range: 0.20-1.00 ALT 26 U/L (Normal) Range: 12-78 ALK P 68 U/L (Normal) Range: 50-136 AST 24 U/L (Normal) Range: 15-37 CA 8.1 mg/dL (Abnormal) Range: 8.5-10.1 A/G 0.9 {RATIO} (Normal) Range: 0.9-2.4 GLOB 3.2 g/dL (Normal) Range: 2.3-3.5 ALB 3.0 g/dL (Abnormal) Range: 3.4-5.0 T PROT 6.2 g/dL (Abnormal) Range: 6.4-8.2 BUN/CRE 35.9 {RATIO} (Abnormal) Range: 10-20 EST GFR - AA 100 mL/min (Normal) Comments: GFR Calc EST GFR 83 mL/min (Normal) Comments: Non- GFR Calc CREAT,SERUM 0.72 mg/dL (Normal) Range: 0.55-1.20 Comments: The validity of the calculated GFR AND GFRAA in patients over70 years has not been determined. Clinical correlation isessential. BUN 26 mg/dL (Abnormal) Range: 7-18 GLU 112 mg/dL (Abnormal) Range: 70-110 Comments: Fasting Glucose result from 110 to <126 mg/dLsuggests IMPAIRED HOMEOSTASIS per A.D.A. criteria. :05 LDH 225 U/L (Normal) Comments: Serial Specimen #1, #2 or #3? [address] [place] [address] [address] [place], [place], [id number] Range: 84-246 :05 Uric Acid Comments: Serial Specimen #1, #2 or #3? [address] [place] [address] [address] [place], [place], [id number] URIC 4.1 mg/dL (Normal) Range: 2.6-6.0 Comments: The drugs N-Acetylcysteine and Metamizole may falsely deressthis assay. :04 CBC W/Diff, Auto - EPLAB Comments: At [facility] Outpatient [facility] [place] Medical Oncologypatients receive CBC w/auto Differential ONLY. Physicianwill place an order for a manual differential or Pathologistreview at his discretion. [facility] [place] OUTPATIENT [facility]. [address] [place] [address] [address] AUTOMOTIVE SALES SPECIALIST: KURTIS STEVENS DO PH:[phone] [address] [place], [address] Absolute Lymph 0.78 {X10_3/uL} (Abnormal) Range: 0.83-4.51 Absolute Neut 7.6 {X10_3/uL} (Normal) Range: 2.0-7.7 BASO% 1.2 % (Abnormal) Range: 0-1 EO% 0.1 % (Normal) Range: 0-5 MONO% 10.8 % (Abnormal) Range: 0-10 LY% 8.1 % (Abnormal) Range: 19-41 NEUT% 79.8 % (Abnormal) Range: 47-70 MPV 6.0 fL (Abnormal) Range: 6.2-12.0 PLT 373 K/mm3 (Normal) Range: 150-450 RDW 23.1 % (Abnormal) Range: 11.6-14.6 MCHC 30.5 g/dL (Abnormal) Range: 32-36 MCH 25.2 pg (Abnormal) Range: 27.0-32.0 MCV 82.6 fL (Normal) Range: 81-99 HCT 20.6 % (Abnormal) Range: 37-47 HGB 6.3 g/dL (Abnormal) Range: 12.0-15.0 RBC 2.50 {M/mm3} (Abnormal) Range: 4.2-5.4 WBC 9.6 K/mm3 (Normal) Range: 4.4-11.0 :31 CBC W/Diff, Automated Comments: [facility] [address]qvvtibv[address] [place], [place], [id number] OVALOCYTE 1+ (Normal) HYPOCHROMASIA 1+ (Normal) ANISO 1+ (Normal) SMEAR COMMENT SCANNED (Normal) Absolute Lymph 0.76 {X10_3/ul} (Abnormal) Range: 0.83-4.51 Absolute Neut 4.5 {X10_3/uL} (Normal) Range: 2.0-7.7 IM GRAN % 0.500 % (Normal) Range: 0.0-0.9 Comments: IG% - Immature Granulocytes (promyelocytes, myelocytes andmetamyelocytes) > 1% indicates that a LEFT SHIFT is Present. BASO% 0.5 % (Normal) Range: 0-1 EO% 2.4 % (Normal) Range: 0-5 MONO% 13.9 % (Abnormal) Range: 0-10 LY% 12.0 % (Abnormal) Range: 19-41 NEUT% 70.7 % (Abnormal) Range: 47-70 MPV 9.5 fL (Normal) Range: 6.2-12.0 PLT 323 K/mm3 (Normal) Range: 150-450 RDW SD 62.2 fL (Abnormal) Range: 35.1-43.9 RDW CV 20.8 % (Abnormal) Range: 11.6-14.6 MCHC 29.2 {g/gl} (Abnormal) Range: 32-36 MCH 23.5 pg (Abnormal) Range: 27.0-32.0 MCV 80.5 fL (Abnormal) Range: 81-99 HCT 32.2 % (Abnormal) Range: 37-47 HGB 9.4 g/dL (Abnormal) Range: 12.0-15.0 RBC 4.00 {M/mm3} (Abnormal) Range: 4.2-5.4 WBC 6.3 K/mm3 (Normal) Range: 4.4-11.0 :35 RC Comments: [facility] - refer to report for specific site [id number] TRANSFUSED PRODUCT: T AND S with Crossmatch, Red Cells COUNT: 2 (Normal) :35 Type AND Screen Comments: CMV NEG?* NGive When? [id number]? YLeukodepleted? YReason for Type AND Screen/Red Cells: [facility] [address]ujvqvltx3481 [place], [place], [id number] Antibody Screen NEGATIVE (Normal) BLOOD TYPE GEL A POSITIVE (Normal) [id number]-Zav-[id number]:41 Bilirubin, Direct Comments: Serial Specimen #1, #2 or #3? [facility] [address]clwc7[address] [place], [place], [id number] D BILI 0.13 mg/dL (Normal) Range: 0.00-0.30 :41 CBC W/Diff, Automated Comments: PERIPHERAL BLOOD FLOW CYTOMETRYWMetroHealth Main Campus [facility] Center Itdodbmnqe7434 [place], [address] MICROCYTES 1+ (Normal) HYPOCHROMASIA 2+ (Normal) ANISO 1+ (Normal) PLT EST ADEQUATE (Normal) Absolute Lymph 0.72 {X10_3/ul} (Abnormal) Range: 0.83-4.51 Absolute Neut 5.4 {X10_3/uL} (Normal) Range: 2.0-7.7 IM GRAN % 0.100 % (Normal) Range: 0.0-0.9 Comments: IG% - Immature Granulocytes (promyelocytes, myelocytes andmetamyelocytes) > 1% indicates that a LEFT SHIFT is Present. BASO% 0.6 % (Normal) Range: 0-1 EO% 1.0 % (Normal) Range: 0-5 MONO% 9.8 % (Normal) Range: 0-10 LY% 10.4 % (Abnormal) Range: 19-41 NEUT% 78.1 % (Abnormal) Range: 47-70 MPV 9.0 fL (Normal) Range: 6.2-12.0 PLT 340 K/mm3 (Normal) Range: 150-450 RDW SD 63.3 fL (Abnormal) Range: 35.1-43.9 RDW CV 22.3 % (Abnormal) Range: 11.6-14.6 MCHC 28.7 {g/gl} (Abnormal) Range: 32-36 MCH 22.5 pg (Abnormal) Range: 27.0-32.0 MCV 78.4 fL (Abnormal) Range: 81-99 HCT 25.4 % (Abnormal) Range: 37-47 HGB 7.3 g/dL (Abnormal) Range: 12.0-15.0 RBC 3.24 {M/mm3} (Abnormal) Range: 4.2-5.4 WBC 7.0 K/mm3 (Normal) Range: 4.4-11.0 24-Pfp-[id number]:41 Comprehensive Metabolic Profil Comments: Serial Specimen #1, #2 or #3? [facility] [address]xsijksbgl5352 [place], [place], [id number] GAP 3 (Abnormal) Range: 5-15 CO2 39.0 mmol/L (Abnormal) Range: 21.0-32.0 CL 93 mmol/L (Abnormal) Range: 98-107 K 3.4 mmol/L (Abnormal) Range: 3.5-5.1 NA 135 mmol/L (Abnormal) Range: 136-145 T BILI 0.40 mg/dL (Normal) Range: 0.20-1.00 ALT 37 U/L (Normal) Range: 12-78 ALK P 76 U/L (Normal) Range: 50-136 AST 33 U/L (Normal) Range: 15-37 CA 8.7 mg/dL (Normal) Range: 8.5-10.1 A/G 0.9 {RATIO} (Normal) Range: 0.9-2.4 GLOB 3.5 g/dL (Normal) Range: 2.3-3.5 ALB 3.3 g/dL (Abnormal) Range: 3.4-5.0 T PROT 6.8 g/dL (Normal) Range: 6.4-8.2 BUN/CRE 26.7 {RATIO} (Abnormal) Range: 10-20 EST GFR - AA 102 mL/min (Normal) Comments: GFR Calc EST GFR 84 mL/min (Normal) Comments: Non- GFR Calc CREAT,SERUM 0.71 mg/dL (Normal) Range: 0.55-1.20 Comments: The validity of the calculated GFR AND GFRAA in patients over70 years has not been determined. Clinical correlation isessential. BUN 19 mg/dL (Abnormal) Range: 7-18 GLU 92 mg/dL (Normal) Range: 70-110 :41 Direct Antiglobulin Liam BRIAN Comments: [facility] [address]ufsbfg2785 [facility], [address] DIRECT LIAM= NEG w/POLYSPECIFIC (Normal) [id number]-Ibv-[id number]:41 Erythropoietin Comments: Is Patient Fasting? [facility] (refer to report for specific site)refer to report for address and phone number ERYTHROP [phone] 97.7 m[iU]/mL (Abnormal) Range: 2.6-18.5 49-Imy-401356:41 Ferritin Comments: Serial Specimen #1, #2 or #3? [facility] Cidlrxzhdx7184 [facility], [address] FERRITIN 13 ng/mL (Normal) Range: 8-252 94-Xfx-684179:41 Haptoglobin Comments: Is Patient Fasting? [facility] (refer to report for specific site)refer to report for address and phone number HAPTOGLOB 1628 209 mg/dL (Abnormal) Range: 34-200 Comments: Performed at: [facility] [address] [id number] Director: Elías Ludwig PhD, Phone: [phone] 68-Ofd-323385:41 JEY + Protein Elect, Serum Comments: Is Patient Fasting? [facility] (refer to report for specific site)refer to report for address and phone number NOTE: Comment (Normal) Comments: Protein electrophoresis scan will follow via computer,mail, or powderman delivery. JEY RESULT,S Comment (Normal) Comments: No monoclonality detected. A/G RATIO 1.2 (Normal) Range: 0.7-1.7 GLOBULIN, TOTAL 2.9 g/dL (Normal) Range: 2.2-3.9 M-SPIKE (Normal) Comments: Not Observed GAMMA GLOBULIN 0.9 g/dL (Normal) Range: 0.4-1.8 BETA GLOBULIN 1.0 g/dL (Normal) Range: 0.7-1.3 DLMEK-1-GDLS 0.8 g/dL (Normal) Range: 0.4-1.0 NMKOF-5-WVZS 0.3 g/dL (Normal) Range: 0.0-0.4 ALBUMIN 3.3 g/dL (Normal) Range: 2.9-4.4 IMMUNOGL M 165 mg/dL (Normal) Range: 26-217 IMMUNO A 84 mg/dL (Normal) Range: 64-422 IMMUNO G 729 mg/dL (Normal) Range: 700-1600 PROTEIN,TOTAL 6.2 g/dL (Normal) Range: 6.0-8.5 93-Vbm-070663:41 Iron+Iron Binding Capacity Comments: Serial Specimen #1, #2 or #3? [facility] [address]qipfu4[address] [place], [address] IRON SATURATION 4.7 % (Abnormal) Range: 15.0-55.0 IRON 25 ug/dL (Abnormal) Range: 50-170 TIBC 531 ug/dL (Abnormal) Range: 250-450 95-Rcr-637588:41 [place] Lambda Lt Chn Ser. Mon. Comments: Is Patient Fasting? [facility] (refer to report for specific site)refer to report for address and phone number K/L GRAPH (Normal) Comments: Scanned image report available in EMR KAPPA/LAMBDA % 0.98 (Normal) Range: 0.26-1.65 FR LAMBDA LT CH 20.45 mg/L (Normal) Range: 5.71-26.30 FR KAPPA LT CHN 19.99 mg/L (Abnormal) Range: 3.30-19.40 :41 LDH 241 U/L (Normal) Comments: Serial Specimen #1, #2 or #3? [facility] [address]uwa[address] [place], [address] Range: 84-246 :41 Partial Thromboplast Time Comments: [facility] [address]ib[address] [place], [address] PTT 36.4 s (Abnormal) Range: 24.1-36.2 :41 Prothrombin Time w/INR Comments: [facility] [address]oktipfr[address] [place], [id number] INR 1.1 (Normal) PROTIME 13.4 s (Normal) Range: 11.7-14.9 :41 Retic Panel Comments: PERIPHERAL BLOOD FLOW CYTOMETRYWRegina Ville [address] [place], [id number] IPF 1.3 % (Normal) Range: 1.0-7.9 Comments: Low PLT + Low IPF suggest a bone marrow production disorderLow PLT + high IPF suggests peripheral destruction(e.g.ITP, TTP, HIT, DIC, autoimmune) or bone marrow recoveryTrending of serial IPF measuremen ts is recommended whenevaluating for bone marrow responesValue above normal range indicates an increase in RBCcellular response from bone marrow. RET-HE 19.0 pg (Abnormal) Range: 30-35 IM RET FRACTION 27.80 % (Abnormal) Range: 3.00-15.90 RETIC 2.03 % (Abnormal) Range: 0.5-1.5 :41 Uric Acid Comments: Serial Specimen #1, #2 or #3? [facility] [address]lvqlktte9708 [address] [place], [address] URIC 3.7 mg/dL (Normal) Range: 2.6-6.0 Comments: The drugs N-Acetylcysteine and Metamizole may falsely deressthis assay. :41 Vitamin B12 453 pg/mL (Normal) Comments: [facility] [address]xs[address] [place], [address] Range: 211-911 :52 Fecal Occult Blood , Office ([id number]) Fecal Occult Blood , Office (Inhouse) positive (Normal) [id number]-Yux-[id number]:17 CBC WITH MANUAL DIFF Comments: STANDING ORDER; PATIENT NOT FASTINGPERFORMED BY: [facility] Intocd2704 [facility] [id number] Information: [id number] ([id number]) Hematology Comments: Note: (Normal) Comments: Verified by microscopic examination. Immature Grans (Abs) 0.0 {x10E3/uL} (Normal) Range: 0.0-0.1 Immature Granulocytes 0 % (Normal) Baso (Absolute) 0.1 {x10E3/uL} (Normal) Range: 0.0-0.2 Eos (Absolute) 0.2 {x10E3/uL} (Normal) Range: 0.0-0.4 Monocytes(Absolute) 1.1 {x10E3/uL} (Abnormal) Range: 0.1-0.9 Lymphs (Absolute) 0.7 {x10E3/uL} (Normal) Range: 0.7-3.1 Neutrophils (Absolute) 5.3 {x10E3/uL} (Normal) Range: 1.4-7.0 Basos 1 % (Normal) Eos 2 % (Normal) Monocytes 15 % (Normal) Lymphs 10 % (Normal) Neutrophils 72 % (Normal) Platelets 344 {x10E3/uL} (Normal) Range: 150-379 RDW 22.5 % (Abnormal) Range: 12.3-15.4 MCHC 29.5 g/dL (Abnormal) Range: 31.5-35.7 MCH 22.7 pg (Abnormal) Range: 26.6-33.0 MCV 77 fL (Abnormal) Range: 79-97 Hematocrit 29.5 % (Abnormal) Range: 34.0-46.6 Hemoglobin 8.7 g/dL (Abnormal) Range: 11.1-15.9 RBC 3.84 {x10E6/uL} (Normal) Range: 3.77-5.28 Comments: Rouleaux.Polychromasia present WBC 7.4 {x10E3/uL} (Normal) Range: 3.4-10.8 :56 CBC W/Diff, Automated Comments: [facility] [address]rigsuu[address] [place], [place], [id number] SMEAR COMMENT COMMENT (Normal) Comments: SLIDE SCANNED - 1+ ANISO. Absolute Lymph 0.64 {X10_3/ul} (Abnormal) Range: 0.83-4.51 Absolute Neut 5.1 {X10_3/uL} (Normal) Range: 2.0-7.7 IM GRAN % 0.400 % (Normal) Range: 0.0-0.9 Comments: IG% - Immature Granulocytes (promyelocytes, myelocytes andmetamyelocytes) > 1% indicates that a LEFT SHIFT is Present. BASO% 0.7 % (Normal) Range: 0-1 EO% 1.5 % (Normal) Range: 0-5 MONO% 17.2 % (Abnormal) Range: 0-10 LY% 8.9 % (Abnormal) Range: 19-41 NEUT% 71.3 % (Abnormal) Range: 47-70 MPV 9.4 fL (Normal) Range: 6.2-12.0 PLT 337 K/mm3 (Normal) Range: 150-450 RDW SD 68.9 fL (Abnormal) Range: 35.1-43.9 RDW CV 23.8 % (Abnormal) Range: 11.6-14.6 MCHC 29.0 {g/gl} (Abnormal) Range: 32-36 MCH 23.3 pg (Abnormal) Range: 27.0-32.0 MCV 80.2 fL (Abnormal) Range: 81-99 HCT 30.3 % (Abnormal) Range: 37-47 HGB 8.8 g/dL (Abnormal) Range: 12.0-15.0 RBC 3.78 {M/mm3} (Abnormal) Range: 4.2-5.4 WBC 7.2 K/mm3 (Normal) Range: 4.4-11.0 :38 CBC W/AUTO DIFF WBC Comments: PATIENT NOT FASTINGPERFORMED BY: [facility] Bymvuh0776 [facility] [id number] Information: [id number] ([id number]) Hematology Comments: Note: (Normal) Comments: Verified by microscopic examination. Immature Grans (Abs) 0.0 {x10E3/uL} (Normal) Range: 0.0-0.1 Immature Granulocytes 0 % (Normal) Baso (Absolute) 0.1 {x10E3/uL} (Normal) Range: 0.0-0.2 Eos (Absolute) 0.1 {x10E3/uL} (Normal) Range: 0.0-0.4 Monocytes(Absolute) 1.1 {x10E3/uL} (Abnormal) Range: 0.1-0.9 Lymphs (Absolute) 0.9 {x10E3/uL} (Normal) Range: 0.7-3.1 Neutrophils (Absolute) 5.3 {x10E3/uL} (Normal) Range: 1.4-7.0 Basos 1 % (Normal) Eos 2 % (Normal) Monocytes 14 % (Normal) Lymphs 12 % (Normal) Neutrophils 71 % (Normal) Platelets 377 {x10E3/uL} (Normal) Range: 150-379 RDW 22.7 % (Abnormal) Range: 12.3-15.4 MCHC 29.8 g/dL (Abnormal) Range: 31.5-35.7 MCH 22.9 pg (Abnormal) Range: 26.6-33.0 MCV 77 fL (Abnormal) Range: 79-97 Hematocrit 32.9 % (Abnormal) Range: 34.0-46.6 Hemoglobin 9.8 g/dL (Abnormal) Range: 11.1-15.9 RBC 4.28 {x10E6/uL} (Normal) Range: 3.77-5.28 Comments: Target cells present.Polychromasia presentOvalocytes present. WBC 7.5 {x10E3/uL} (Normal) Range: 3.4-10.8 3-Acy-011467:11 CBC W/Diff, Automated Comments: [facility] [address]uws[address] [place], [place], [id number] MICROCYTES 1+ (Normal) HYPOCHROMASIA 2+ (Normal) ANISO 1+ (Normal) SMEAR COMMENT SLIDE SCANNED (Normal) Absolute Lymph 0.74 {X10_3/ul} (Abnormal) Range: 0.83-4.51 Absolute Neut 6.5 {X10_3/uL} (Normal) Range: 2.0-7.7 IM GRAN % 0.300 % (Normal) Range: 0.0-0.9 Comments: IG% - Immature Granulocytes (promyelocytes, myelocytes andmetamyelocytes) > 1% indicates that a LEFT SHIFT is Present. BASO% 0.8 % (Normal) Range: 0-1 EO% 2.6 % (Normal) Range: 0-5 MONO% 13.0 % (Abnormal) Range: 0-10 LY% 8.5 % (Abnormal) Range: 19-41 NEUT% 74.8 % (Abnormal) Range: 47-70 MPV 9.9 fL (Normal) Range: 6.2-12.0 PLT 275 K/mm3 (Normal) Range: 150-450 RDW SD 69.4 fL (Abnormal) Range: 35.1-43.9 RDW CV 25.1 % (Abnormal) Range: 11.6-14.6 MCHC 29.1 {g/gl} (Abnormal) Range: 32-36 MCH 23.0 pg (Abnormal) Range: 27.0-32.0 MCV 79.3 fL (Abnormal) Range: 81-99 HCT 34.4 % (Abnormal) Range: 37-47 HGB 10.0 g/dL (Abnormal) Range: 12.0-15.0 RBC 4.34 {M/mm3} (Normal) Range: 4.2-5.4 WBC 8.7 K/mm3 (Normal) Range: 4.4-11.0 54-Rjo-395266:45 HH, Hemoglobin AND Comments: [facility] [address] [place], [place], [address] Hematocrit HCT 31.8 % (Abnormal) Range: 37-47 HGB 9.4 g/dL (Abnormal) Range: 12.0-15.0 20-Dea-921338:53 RC Comments: [facility] - refer to report for specific site [id number] TRANSFUSED PRODUCT: T AND S with Crossmatch, Red Cells COUNT: 2 (Normal) 07-Gjq-[id number]:53 Type AND Screen Comments: CMV NEG?* NGive When? 09/20/15 9AMIrradiated? NLeukodepleted? YReason for Type AND Screen/Red Cells: [facility] Xscujnodcm0768 [place], [address] Antibody Screen NEGATIVE (Normal) BLOOD TYPE GEL A POSITIVE (Normal) 88-Lpw-350460:53 Type AND Screen Comments: CMV NEG?* NGive When? 09/20/15 9AMIrradiated? NLeukodepleted? YReason for Type AND Screen/Red Cells: [facility] Bmorstiqrc2105 [place], [address] Antibody Screen NEGATIVE (Normal) BLOOD TYPE GEL A POSITIVE (Normal) 18-Aek-858850:51 CBC W/Diff, Automated Comments: [facility] [address]zzuizbpb5254 [place], [address] MICROCYTES 1+ (Normal) HYPOCHROMASIA 2+ (Normal) ANISO 1+ (Normal) SMEAR COMMENT SLIDE SCANNED (Normal) Absolute Lymph 0.74 {X10_3/ul} (Abnormal) Range: 0.83-4.51 Absolute Neut 5.7 {X10_3/uL} (Normal) Range: 2.0-7.7 IM GRAN % 0.300 % (Normal) Range: 0.0-0.9 Comments: IG% - Immature Granulocytes (promyelocytes, myelocytes andmetamyelocytes) > 1% indicates that a LEFT SHIFT is Present. BASO% 0.5 % (Normal) Range: 0-1 EO% 1.6 % (Normal) Range: 0-5 MONO% 12.7 % (Abnormal) Range: 0-10 LY% 9.8 % (Abnormal) Range: 19-41 NEUT% 75.1 % (Abnormal) Range: 47-70 MPV 9.4 fL (Normal) Range: 6.2-12.0 PLT 341 K/mm3 (Normal) Range: 150-450 RDW SD 60.7 fL (Abnormal) Range: 35.1-43.9 RDW CV 23.1 % (Abnormal) Range: 11.6-14.6 MCHC 28.0 {g/gl} (Abnormal) Range: 32-36 MCH 20.9 pg (Abnormal) Range: 27.0-32.0 MCV 74.7 fL (Abnormal) Range: 81-99 HCT 25.4 % (Abnormal) Range: 37-47 HGB 7.1 g/dL (Abnormal) Range: 12.0-15.0 RBC 3.40 {M/mm3} (Abnormal) Range: 4.2-5.4 WBC 7.6 K/mm3 (Normal) Range: 4.4-11.0 97-Cdm-334969:30 CBC W/Diff, Automated Comments: [facility] [address]plsrb[address] [place], [place], [id number] SMEAR COMMENT (Normal) Comments: 1+ ANISOCYTOSIS Absolute Lymph 0.80 {X10_3/ul} (Abnormal) Range: 0.83-4.51 Absolute Neut 6.3 {X10_3/uL} (Normal) Range: 2.0-7.7 IM GRAN % 0.400 % (Normal) Range: 0.0-0.9 Comments: IG% - Immature Granulocytes (promyelocytes, myelocytes andmetamyelocytes) > 1% indicates that a LEFT SHIFT is Present. BASO% 0.6 % (Normal) Range: 0-1 EO% 1.2 % (Normal) Range: 0-5 MONO% 10.8 % (Abnormal) Range: 0-10 LY% 9.8 % (Abnormal) Range: 19-41 NEUT% 77.2 % (Abnormal) Range: 47-70 MPV 10.0 fL (Normal) Range: 6.2-12.0 PLT 397 K/mm3 (Normal) Range: 150-450 RDW SD 61.1 fL (Abnormal) Range: 35.1-43.9 RDW CV 23.4 % (Abnormal) Range: 11.6-14.6 MCHC 27.2 {g/gl} (Abnormal) Range: 32-36 MCH 20.7 pg (Abnormal) Range: 27.0-32.0 MCV 75.9 fL (Abnormal) Range: 81-99 HCT 26.8 % (Abnormal) Range: 37-47 HGB 7.3 g/dL (Abnormal) Range: 12.0-15.0 RBC 3.53 {M/mm3} (Abnormal) Range: 4.2-5.4 WBC 8.1 K/mm3 (Normal) Range: 4.4-11.0 86-Htl-845116:00 CBC W/Diff, Automated Comments: [facility] [address]xkf[address] [place], [place], [address] MICROCYTES 2+ (Normal) HYPOCHROMASIA 3+ (Normal) ANISO 2+ (Normal) PLT EST ADEQUATE (Normal) SMEAR COMMENT SCANNED (Normal) Absolute Lymph 0.78 {X10_3/ul} (Abnormal) Range: 0.83-4.51 Absolute Neut 6.7 {X10_3/uL} (Normal) Range: 2.0-7.7 IM GRAN % 0.500 % (Normal) Range: 0.0-0.9 Comments: IG% - Immature Granulocytes (promyelocytes, myelocytes andmetamyelocytes) > 1% indicates that a LEFT SHIFT is Present. BASO% 1.0 % (Normal) Range: 0-1 EO% 1.9 % (Normal) Range: 0-5 MONO% 10.5 % (Abnormal) Range: 0-10 LY% 9.0 % (Abnormal) Range: 19-41 NEUT% 77.1 % (Abnormal) Range: 47-70 MPV 9.3 fL (Normal) Range: 6.2-12.0 PLT 452 K/mm3 (Abnormal) Range: 150-450 RDW SD 63.1 fL (Abnormal) Range: 35.1-43.9 RDW CV 22.9 % (Abnormal) Range: 11.6-14.6 MCHC 27.7 {g/gl} (Abnormal) Range: 32-36 MCH 21.3 pg (Abnormal) Range: 27.0-32.0 MCV 76.7 fL (Abnormal) Range: 81-99 HCT 30.3 % (Abnormal) Range: 37-47 HGB 8.4 g/dL (Abnormal) Range: 12.0-15.0 RBC 3.95 {M/mm3} (Abnormal) Range: 4.2-5.4 WBC 8.6 K/mm3 (Normal) Range: 4.4-11.0 83-Gdh-842939:10 CBC W/Diff, Automated Comments: [facility] [address]fl[address]visrno[address] [place], [place], [id number] SMEAR COMMENT COMMENT (Normal) Comments: SLIDE SCANNED - 1+ ANISO. Absolute Lymph 0.66 {X10_3/ul} (Abnormal) Range: 0.83-4.51 Absolute Neut 5.9 {X10_3/uL} (Normal) Range: 2.0-7.7 IM GRAN % 0.400 % (Normal) Range: 0.0-0.9 Comments: IG% - Immature Granulocytes (promyelocytes, myelocytes andmetamyelocytes) > 1% indicates that a LEFT SHIFT is Present. BASO% 0.9 % (Normal) Range: 0-1 EO% 1.3 % (Normal) Range: 0-5 MONO% 18.2 % (Abnormal) Range: 0-10 LY% 8.0 % (Abnormal) Range: 19-41 NEUT% 71.2 % (Abnormal) Range: 47-70 MPV 9.2 fL (Normal) Range: 6.2-12.0 PLT 333 K/mm3 (Normal) Range: 150-450 RDW SD 60.2 fL (Abnormal) Range: 35.1-43.9 RDW CV 22.5 % (Abnormal) Range: 11.6-14.6 MCHC 28.3 {g/gl} (Abnormal) Range: 32-36 MCH 21.3 pg (Abnormal) Range: 27.0-32.0 MCV 75.1 fL (Abnormal) Range: 81-99 HCT 29.3 % (Abnormal) Range: 37-47 HGB 8.3 g/dL (Abnormal) Range: 12.0-15.0 RBC 3.90 {M/mm3} (Abnormal) Range: 4.2-5.4 WBC 8.2 K/mm3 (Normal) Range: 4.4-11.0 [id number] CBC W/Diff, Automated Comments: [facility] [id number] [place], [address] OVALOCYTE RARE (Normal) HYPOCHROMASIA 1+ (Normal) ANISO 2+ (Normal) SMEAR COMMENT SCANNED (Normal) Absolute Lymph 1.00 {X10_3/ul} (Normal) Range: 0.83-4.51 Absolute Neut 7.0 {X10_3/uL} (Normal) Range: 2.0-7.7 IM GRAN % 0.300 % (Normal) Range: 0.0-0.9 Comments: IG% - Immature Granulocytes (promyelocytes, myelocytes andmetamyelocytes) > 1% indicates that a LEFT SHIFT is Present. BASO% 1.2 % (Abnormal) Range: 0-1 EO% 0.7 % (Normal) Range: 0-5 MONO% 10.6 % (Abnormal) Range: 0-10 LY% 11.0 % (Abnormal) Range: 19-41 NEUT% 76.2 % (Abnormal) Range: 47-70 MPV 9.2 fL (Normal) Range: 6.2-12.0 PLT 419 K/mm3 (Normal) Range: 150-450 RDW SD 61.3 fL (Abnormal) Range: 35.1-43.9 RDW CV 22.5 % (Abnormal) Range: 11.6-14.6 MCHC 28.2 {g/gl} (Abnormal) Range: 32-36 MCH 21.4 pg (Abnormal) Range: 27.0-32.0 MCV 75.9 fL (Abnormal) Range: 81-99 HCT 30.5 % (Abnormal) Range: 37-47 HGB 8.6 g/dL (Abnormal) Range: 12.0-15.0 RBC 4.02 {M/mm3} (Abnormal) Range: 4.2-5.4 WBC 9.1 K/mm3 (Normal) Range: 4.4-11.0 [id number] CBC W/Diff, Automated Comments: [facility] [id number] [place], [place], [id number] SMEAR COMMENT SCANNED (Normal) Comments: 2+ ANISOCYTOSIS, 2+ HYPOCHROMASIA Absolute Lymph 0.80 {X10_3/ul} (Abnormal) Range: 0.83-4.51 Absolute Neut 6.8 {X10_3/uL} (Normal) Range: 2.0-7.7 IM GRAN % 0.600 % (Normal) Range: 0.0-0.9 Comments: IG% - Immature Granulocytes (promyelocytes, myelocytes andmetamyelocytes) > 1% indicates that a LEFT SHIFT is Present. BASO% 0.8 % (Normal) Range: 0-1 EO% 0.0 % (Normal) Range: 0-5 MONO% 13.2 % (Abnormal) Range: 0-10 LY% 9.0 % (Abnormal) Range: 19-41 NEUT% 76.4 % (Abnormal) Range: 47-70 MPV 9.4 fL (Normal) Range: 6.2-12.0 PLT 392 K/mm3 (Normal) Range: 150-450 RDW SD 60.8 fL (Abnormal) Range: 35.1-43.9 RDW CV 22.3 % (Abnormal) Range: 11.6-14.6 MCHC 28.1 {g/gl} (Abnormal) Range: 32-36 MCH 21.6 pg (Abnormal) Range: 27.0-32.0 MCV 76.9 fL (Abnormal) Range: 81-99 HCT 30.3 % (Abnormal) Range: 37-47 HGB 8.5 g/dL (Abnormal) Range: 12.0-15.0 RBC 3.94 {M/mm3} (Abnormal) Range: 4.2-5.4 WBC 8.9 K/mm3 (Normal) Range: 4.4-11.0 :44 CBC W/Diff, Automated Comments: [facility] [id number] [place], [place], [id number] SMEAR COMMENT COMMENT (Normal) Comments: SLIDE SCANNED - 1+ ANISO. Absolute Lymph 0.67 {X10_3/ul} (Abnormal) Range: 0.83-4.51 Absolute Neut 6.2 {X10_3/uL} (Normal) Range: 2.0-7.7 IM GRAN % 0.500 % (Normal) Range: 0.0-0.9 Comments: IG% - Immature Granulocytes (promyelocytes, myelocytes andmetamyelocytes) > 1% indicates that a LEFT SHIFT is Present. BASO% 2.2 % (Abnormal) Range: 0-1 EO% 0.4 % (Normal) Range: 0-5 MONO% 13.1 % (Abnormal) Range: 0-10 LY% 8.2 % (Abnormal) Range: 19-41 NEUT% 75.6 % (Abnormal) Range: 47-70 MPV 9.4 fL (Normal) Range: 6.2-12.0 PLT 394 K/mm3 (Normal) Range: 150-450 RDW SD 61.2 fL (Abnormal) Range: 35.1-43.9 RDW CV 22.5 % (Abnormal) Range: 11.6-14.6 MCHC 27.7 {g/gl} (Abnormal) Range: 32-36 MCH 21.4 pg (Abnormal) Range: 27.0-32.0 MCV 77.2 fL (Abnormal) Range: 81-99 HCT 32.9 % (Abnormal) Range: 37-47 HGB 9.1 g/dL (Abnormal) Range: 12.0-15.0 RBC 4.26 {M/mm3} (Normal) Range: 4.2-5.4 WBC 8.2 K/mm3 (Normal) Range: 4.4-11.0 [id number]:20 HH, Hemoglobin AND Hematocrit Comments: [facility] [address] [place], [place], [id number] HCT 30.8 % (Abnormal) Range: 37-47 HGB 8.8 g/dL (Abnormal) Range: 12.0-15.0 38-Lmj-416017:30 Prothrombin Time w/INR Comments: [facility] [address] [place], [place], [id number] INR 1.0 (Normal) PROTIME 13.0 s (Normal) Range: 11.7-14.9 62-Nag-426366:48 Basic Metabolic Profile (BMP) Comments: [facility] [address] [facility] [place], [place], [id number] GAP 3 (Abnormal) Range: 5-15 CO2 41.0 mmol/L (Abnormal) Range: 21.0-32.0 CL 93 mmol/L (Abnormal) Range: 98-107 K 3.7 mmol/L (Normal) Range: 3.5-5.1 NA 137 mmol/L (Normal) Range: 136-145 CA 8.2 mg/dL (Abnormal) Range: 8.5-10.1 BUN/CRE 27.2 {RATIO} (Abnormal) Range: 10-20 EST GFR - AA 111 mL/min (Normal) Comments: GFR Calc EST GFR 92 mL/min (Normal) Comments: Non- GFR Calc CREAT,SERUM 0.66 mg/dL (Normal) Range: 0.55-1.20 Comments: The validity of the calculated GFR AND GFRAA in patients over70 years has not been determined. Clinical correlation isessential. BUN 18 mg/dL (Normal) Range: 7-18 GLU 98 mg/dL (Normal) Range: 70-110 :48 BNP,B-Type NATRIURETIC PEPTIDE Comments: [facility] [address] [place], [place], [address] B-TYPE CORBIN PEP 458.2 pg/mL (Abnormal) Range: 0-100 :48 CBC W/Diff, Automated Comments: [facility] [address] [place], [place], [address] Absolute Lymph 0.66 {X10_3/ul} (Abnormal) Range: 0.83-4.51 Absolute Neut 5.9 {X10_3/uL} (Normal) Range: 2.0-7.7 IM GRAN % 0.300 % (Normal) Range: 0.0-0.9 Comments: IG% - Immature Granulocytes (promyelocytes, myelocytes andmetamyelocytes) > 1% indicates that a LEFT SHIFT is Present. BASO% 1.0 % (Normal) Range: 0-1 EO% 1.6 % (Normal) Range: 0-5 MONO% 15.0 % (Abnormal) Range: 0-10 LY% 8.3 % (Abnormal) Range: 19-41 NEUT% 73.8 % (Abnormal) Range: 47-70 MPV 10.3 fL (Normal) Range: 6.2-12.0 PLT 442 K/mm3 (Normal) Range: 150-450 RDW SD 48.5 fL (Abnormal) Range: 35.1-43.9 RDW CV 19.5 % (Abnormal) Range: 11.6-14.6 MCHC 27.1 {g/gl} (Abnormal) Range: 32-36 MCH 19.6 pg (Abnormal) Range: 27.0-32.0 MCV 72.2 fL (Abnormal) Range: 81-99 HCT 24.7 % (Abnormal) Range: 37-47 HGB 6.7 g/dL (Abnormal) Range: 12.0-15.0 RBC 3.42 {M/mm3} (Abnormal) Range: 4.2-5.4 WBC 7.9 K/mm3 (Normal) Range: 4.4-11.0 :39 CBC W/Diff, Automated Comments: [facility] [address] [place], [address] Absolute Lymph 0.93 {X10_3/ul} (Normal) Range: 0.83-4.51 Absolute Neut 7.5 {X10_3/uL} (Normal) Range: 2.0-7.7 IM GRAN % 0.400 % (Normal) Range: 0.0-0.9 Comments: IG% - Immature Granulocytes (promyelocytes, myelocytes andmetamyelocytes) > 1% indicates that a LEFT SHIFT is Present. BASO% 0.5 % (Normal) Range: 0-1 EO% 1.7 % (Normal) Range: 0-5 MONO% 12.9 % (Abnormal) Range: 0-10 LY% 9.4 % (Abnormal) Range: 19-41 NEUT% 75.1 % (Abnormal) Range: 47-70 MPV 8.6 fL (Normal) Range: 6.2-12.0 PLT 350 K/mm3 (Normal) Range: 150-450 RDW SD 53.2 fL (Abnormal) Range: 35.1-43.9 RDW CV 18.6 % (Abnormal) Range: 11.6-14.6 MCHC 28.7 {g/gl} (Abnormal) Range: 32-36 MCH 22.5 pg (Abnormal) Range: 27.0-32.0 MCV 78.4 fL (Abnormal) Range: 81-99 HCT 26.1 % (Abnormal) Range: 37-47 HGB 7.5 g/dL (Abnormal) Range: 12.0-15.0 RBC 3.33 {M/mm3} (Abnormal) Range: 4.2-5.4 WBC 9.9 K/mm3 (Normal) Range: 4.4-11.0 4-Qwe-178416:00 Basic Metabolic Profile (BMP) Comments: Serial Specimen #1, #2 or #3? 1'TROP' Serial specimen #1, #2, #3, or #4: [facility] [address] [place], [place], [address] GAP 5 (Normal) Range: 5-15 CO2 39.0 mmol/L (Abnormal) Range: 21.0-32.0 CL 92 mmol/L (Abnormal) Range: 98-107 K 3.3 mmol/L (Abnormal) Range: 3.5-5.1 NA 136 mmol/L (Normal) Range: 136-145 CA 8.6 mg/dL (Normal) Range: 8.5-10.1 BUN/CRE 16.7 {RATIO} (Normal) Range: 10-20 Estimated CRCL 43.66 ml/min (Normal) EST GFR - AA 85 mL/min (Normal) Comments: GFR Calc EST GFR 70 mL/min (Normal) Comments: Non- GFR Calc CREAT,SERUM 0.84 mg/dL (Normal) Range: 0.55-1.20 Comments: The validity of the calculated GFR AND GFRAA in patients over70 years has not been determined. Clinical correlation isessential. BUN 14 mg/dL (Normal) Range: 7-18 GLU 127 mg/dL (Abnormal) Range: 70-110 Comments: Fasting Glucose result greater than or equal to 126 mg/dLsuggests DIABETES MELLITUS per A.D.A. criteria. 5-Vrv-388751:00 CBC W/Diff, Automated Comments: [facility] [address] [place], [place], [address] SCHISTOCYTES 1+ (Normal) OVALOCYTE RARE (Normal) HYPOCHROMASIA 1+ (Normal) POIK 1+ (Normal) ANISO 3+ (Normal) PLT EST ADEQUATE (Normal) SMEAR COMMENT SCANNED (Normal) Absolute Lymph 0.69 {X10_3/ul} (Abnormal) Range: 0.83-4.51 Absolute Neut 7.3 {X10_3/uL} (Normal) Range: 2.0-7.7 IM GRAN % 0.800 % (Normal) Range: 0.0-0.9 Comments: IG% - Immature Granulocytes (promyelocytes, myelocytes andmetamyelocytes) > 1% indicates that a LEFT SHIFT is Present. BASO% 0.6 % (Normal) Range: 0-1 EO% 1.0 % (Normal) Range: 0-5 MONO% 12.1 % (Abnormal) Range: 0-10 LY% 7.4 % (Abnormal) Range: 19-41 NEUT% 78.1 % (Abnormal) Range: 47-70 MPV 9.5 fL (Normal) Range: 6.2-12.0 PLT 351 K/mm3 (Normal) Range: 150-450 RDW SD 67.0 fL (Abnormal) Range: 35.1-43.9 RDW CV 21.3 % (Abnormal) Range: 11.6-14.6 MCHC 28.0 {g/gl} (Abnormal) Range: 32-36 MCH 23.7 pg (Abnormal) Range: 27.0-32.0 MCV 84.8 fL (Normal) Range: 81-99 HCT 36.8 % (Abnormal) Range: 37-47 HGB 10.3 g/dL (Abnormal) Range: 12.0-15.0 RBC 4.34 {M/mm3} (Normal) Range: 4.2-5.4 WBC 9.3 K/mm3 (Normal) Range: 4.4-11.0 6-Ijx-001612:00 CK-MB Quantitative and Index Comments: Serial Specimen #1, #2 or #3? 1'TROP' Serial specimen #1, #2, #3, or #4: [address] [place] [address] [address] [place], [address] CKRI 2.1 % (Abnormal) Range: 0.0-1.4 Comments: RELATIVE INDEX >1.5% IS PRESUMPTIVELY POSITIVE CPKMB 2.1 ng/mL (Normal) Range: 0.0-5.0 Comments: CK-MB and RI Interpretation MB Relative Index Non-AMI <or= 5 NA Indeterminate > 5 <or= 4 AMI > 5 > 4 CPK TOTAL 100 U/L (Normal) Range: 26-192 8-Cle-914432:00 Troponin-I Comments: Serial Specimen #1, #2 or #3? 1'TROP' Serial specimen #1, #2, #3, or #4: [address] [place] [address] [address] [place], [address] TROPONIN-I < 0.02 ng/mL (Normal) Comments: TROPONIN-I EXPECTED VALUES <0.05 NEGATIVE 0.06 - 0.59 AT RISK OF CO > OR = 0.60 SUGGEST CO 9-Oin-838331:50 Methymalonic Acid, Serum Comments: PATIENT NOT FASTINGPERFORMED BY: [facility] CenterOmniff4890 [facility] [id number] BY: [address] [id number] (02141) Methylmalonic Acid, Serum 278 nmol/L (Normal) Range: 0-378 8-Rso-317342:50 VITAMIN B-12 (CYANOCOBALAMIN) Comments: PATIENT NOT FASTINGPERFORMED BY: [place] 6766770 [facility] [id number] BY: [address] [id number] (31779) Vitamin B12 692 pg/mL (Normal) Range: 211-946 4-Ihi-411563:50 IRON BINDING CAPACITY Comments: PATIENT NOT FASTINGPERFORMED BY: [place] 6766770 [facility] [id number] BY: [address] [id number] (TIBC) (33855) Iron Saturation 22 % (Normal) Range: 15-55 Iron, Serum 92 ug/dL (Normal) Range: 35-155 UIBC 320 ug/dL (Normal) Range: 150-375 Iron Bind.Cap.(TIBC) 412 ug/dL (Normal) Range: 250-450 6-Sjo-432503:50 FERRITIN (37665) Comments: PATIENT NOT FASTINGPERFORMED BY: [place] 6766770 [facility] [id number] BY: [address] [id number] Ferritin, Serum 72 ng/mL (Normal) Range: 15-150 7-Zgs-011863:50 CBC, PLATELETS & AUT DIFF Comments: PATIENT NOT FASTINGPERFORMED BY: [place] 6766770 [facility] [id number] BY: [address] [id number] Information: [id number] (52568) Immature Grans (Abs) 0.0 {x10E3/uL} (Normal) Range: 0.0-0.1 Immature Granulocytes 0 % (Normal) Baso (Absolute) 0.1 {x10E3/uL} (Normal) Range: 0.0-0.2 Eos (Absolute) 0.1 {x10E3/uL} (Normal) Range: 0.0-0.4 Monocytes(Absolute) 0.9 {x10E3/uL} (Normal) Range: 0.1-0.9 Lymphs (Absolute) 0.9 {x10E3/uL} (Normal) Range: 0.7-3.1 Neutrophils (Absolute) 7.0 {x10E3/uL} (Normal) Range: 1.4-7.0 Basos 1 % (Normal) Eos 1 % (Normal) Monocytes 10 % (Normal) Lymphs 10 % (Normal) Neutrophils 78 % (Normal) Platelets 340 {x10E3/uL} (Normal) Range: 150-379 RDW 20.6 % (Abnormal) Range: 12.3-15.4 MCHC 28.8 g/dL (Abnormal) Range: 31.5-35.7 MCH 23.5 pg (Abnormal) Range: 26.6-33.0 MCV 82 fL (Normal) Range: 79-97 Hematocrit 35.1 % (Normal) Range: 34.0-46.6 Hemoglobin 10.1 g/dL (Abnormal) Range: 11.1-15.9 RBC 4.29 {x10E6/uL} (Normal) Range: 3.77-5.28 WBC 9.0 {x10E3/uL} (Normal) Range: 3.4-10.8 47-Euo-036373:06 Iron Binding Capacity Comments: PATIENT WAS FASTINGPERFORMED BY: [facility] Wbxsev7812 [facility] [id number] BY: [facility] [address] [id number] Information: [id number] (TIBC) (71601) Iron Saturation 4 % (Abnormal) Range: 15-55 Iron, Serum 17 ug/dL (Abnormal) Range: 35-155 UIBC 419 ug/dL (Abnormal) Range: 150-375 Iron Bind.Cap.(TIBC) 436 ug/dL (Normal) Range: 250-450 22-Hwx-982429:06 RETICULOCYTE COUNT (52316) Comments: PATIENT WAS FASTINGPERFORMED BY: [facility] Xweugr2230 [facility] [id number] BY: [address] [id number] Reticulocyte Count 1.2 % (Normal) Range: 0.6-2.6 60-Tih-208835:06 LDH (LD) (LACTATE Comments: PATIENT WAS FASTINGPERFORMED BY: [facility] Azfsku6968 [facility] [id number] BY: [address] [id number] DEHYDROGENASE) (17561) LDH 284 [iU]/L (Abnormal) Range: 119-226 07-Kop-758090:06 Vitamin B-12 Comments: PATIENT WAS FASTINGPERFORMED BY: [employer] Lkpixf7401 [facility] [id number] BY: [address] [id number] (cyanocobalamin) (38342) Vitamin B12 452 pg/mL (Normal) Range: 211-946 23-Teu-212716:06 Ferritin (18544) Comments: PATIENT WAS FASTINGPERFORMED BY: [employer] Ujtbeg7218 [facility] [id number] BY: [address] [id number] Ferritin, Serum 15 ng/mL (Normal) Range: 15-150 52-Gox-854427:06 Folic Acid Serum (10544) Comments: PATIENT WAS FASTINGPERFORMED BY: [employer] Wxazyf7884 [facility] [id number] BY: [address] [id number] Folate (Folic Acid), Serum 16.7 ng/mL (Normal) Comments: A serum folate concentration of less than 3.1 ng/mL isconsidered to represent clinical deficiency. 49-Gkp-857832:06 Methymalonic Acid, Serum Comments: PATIENT WAS FASTINGPERFORMED BY: [facility]6370 [facility] [id number] BY: [address] [id number] (60632) Methylmalonic Acid, Serum 321 nmol/L (Normal) Range: 0-378 22-Moc-980438:22 TSH (32042) Comments: PATIENT NOT FASTINGPERFORMED BY: [facility]6370 [facility] [id number] TSH 1.540 {uIU/mL} (Normal) Range: 0.450-4.500 51-Zyj-761401:22 METABOLIC PANEL, COMPREHENSIVE Comments: PATIENT NOT FASTINGPERFORMED BY: [facility]6370 [facility] [id number] (56698) ALT (SGPT) 13 [iU]/L (Normal) Range: 0-32 AST (SGOT) 28 [iU]/L (Normal) Range: 0-40 Alkaline Phosphatase, S 86 [iU]/L (Normal) Range: 39-117 Bilirubin, Total 0.2 mg/dL (Normal) Range: 0.0-1.2 A/G Ratio 1.7 (Normal) Range: 1.1-2.5 Globulin, Total 2.3 g/dL (Normal) Range: 1.5-4.5 Albumin, Serum 4.0 g/dL (Normal) Range: 3.5-4.8 Protein, Total, Serum 6.3 g/dL (Normal) Range: 6.0-8.5 Calcium, Serum 8.8 mg/dL (Normal) Range: 8.7-10.3 Carbon Dioxide, Total 30 mmol/L (Abnormal) Range: 18-29 Chloride, Serum 96 mmol/L (Abnormal) Range: 97-108 Potassium, Serum 4.2 mmol/L (Normal) Range: 3.5-5.2 Sodium, Serum 142 mmol/L (Normal) Range: 134-144 BUN/Creatinine Ratio 24 (Normal) Range: 11-26 eGFR If Africn Am 66 mL/min/1.73 (Normal) eGFR If NonAfricn Am 57 mL/min/1.73 (Abnormal) Creatinine, Serum 0.96 mg/dL (Normal) Range: 0.57-1.00 BUN 23 mg/dL (Normal) Range: 8-27 Glucose, Serum 99 mg/dL (Normal) Range: 65-99 56-Ykn-175632:22 CBC W/AUTO DIFF WBC Comments: PATIENT NOT FASTINGPERFORMED BY: NERIS [facility] Pyyuff7530 [facility]i [facility] [id number] Information: [id number] DL (37639) Immature Grans (Abs) 0.0 {x10E3/uL} (Normal) Range: 0.0-0.1 Immature Granulocytes 0 % (Normal) Baso (Absolute) 0.0 {x10E3/uL} (Normal) Range: 0.0-0.2 Eos (Absolute) 0.2 {x10E3/uL} (Normal) Range: 0.0-0.4 Monocytes(Absolute) 0.9 {x10E3/uL} (Normal) Range: 0.1-0.9 Lymphs (Absolute) 1.0 {x10E3/uL} (Normal) Range: 0.7-3.1 Neutrophils (Absolute) 6.2 {x10E3/uL} (Normal) Range: 1.4-7.0 Basos 1 % (Normal) Eos 2 % (Normal) Monocytes 11 % (Normal) Lymphs 12 % (Normal) Neutrophils 74 % (Normal) Platelets 385 {x10E3/uL} (Abnormal) Range: 150-379 RDW 15.2 % (Normal) Range: 12.3-15.4 MCHC 28.3 g/dL (Abnormal) Range: 31.5-35.7 MCH 21.2 pg (Abnormal) Range: 26.6-33.0 MCV 75 fL (Abnormal) Range: 79-97 Hematocrit 27.6 % (Abnormal) Range: 34.0-46.6 Hemoglobin 7.8 g/dL (Abnormal) Range: 11.1-15.9 RBC 3.68 {x10E6/uL} (Abnormal) Range: 3.77-5.28 WBC 8.4 {x10E3/uL} (Normal) Range: 3.4-10.8 14-Dpb-117682:22 Lipid Profile Comments: Test performed at:[facility] [address] [place] [address] VLDL 17 mg/dL (Normal) Range: 5-40 LDL 47 mg/dL (Normal) Range: 0-130 HDL 75 mg/dL (Normal) Comments: Reference Range HDL <40 mg/dL Low HDL Cholesterol HDL >or= 60 mg/dL High HDL Cholesterol TRIG 85 mg/dL (Normal) Comments: Serum Triglycerides Reference Interval Normal <150 mg/dL Borderline high 150 - 199 mg/dL High 200 - 499 mg/dL Very High > or = 500 mg/dL CHOL 139 mg/dL (Normal) Comments: <200 mg/dL Desirable 200-240 mg/dL Borderline >240 mg/dL High Risk 07-Qrs-547684:22 Liver Profile Comments: Test performed at:[facility] Dzgsltwpdb6930 [facility] [place] [address] D BILI 0.09 mg/dL (Normal) Range: 0.00-0.30 T BILI 0.30 mg/dL (Normal) Range: 0.20-1.00 ALT 30 U/L (Normal) Range: 12-78 ALK P 96 U/L (Normal) Range: 50-136 AST 29 U/L (Normal) Range: 15-37 GLOB 3.3 g/dL (Normal) Range: 2.3-3.5 ALB 3.5 g/dL (Normal) Range: 3.4-5.0 T PROT 6.8 g/dL (Normal) Range: 6.4-8.2 8-Zmg-319731:58 Miscellaneous Lab Procedure Comments: RUN LOWEST TESTComments: [id number] URINE TOXICOLOGYTest(s) Ordered: [id number] URINE TOXICOLOGYTest performed at:[facility] Oftqpywqwz6122 [facility] [place], [place] [address] [facility]: [id number] 6+OXYCODONE-BUND (ng/mL)DRUG RESULT SCREEN CUTOFF____ Amphetamines,Urine Negat LAB (Normal) terri ng/mL 1000Amphetamine test includes Amphetamine and Methamphetamine.Barbiturates Negative ng/mL 200Benzodiazepines Negative ng/mL 200Cannabinoid TEST Negative ng/mL 20Cocaine (Metab) Negative ng/mL 300Opiates Negative ng/mL 300 Opiates test includes Codeine, Morphine, Hydromorphone, [place] codone.Oxycodone/Oxymorphone,Urine Positive ng/mL 300 Test includes Oxydodone and Oxymorphone.Oxycodone Positive Oxycodone (GC/MS) 942 ng/mL 300Oxymorphone Positive Oxymorphone (GC/MS) 1150 ng/mL 300 TESTING PERFORMED AT [facility]. ORIGINAL REPORT ON FILE IN LAB C [facility] ADDITIONAL TEST SITE INFORMATION. 6-Mqk-245673:58 Urine Drug Screen (VISTA) Comments: Comments: [id number] URINE TOXICOLOGYList of Drugs Taken or Suspected? UNKNOWNTest performed at:[facility] [address] [place] [address] THC NEGATIVE (Normal) PCP NEGATIVE (Normal) OPIATES NEGATIVE (Normal) METHADONE NEGATIVE (Normal) ECSTACY NEGATIVE (Normal) COCAINE NEGATIVE (Normal) BENZODIAZIPINE NEGATIVE (Normal) BARBITIURATES NEGATIVE (Normal) AMPHETAMINES NEGATIVE (Normal) VISTA UDS PH 6 (Normal) TO BE CONFIRMED (Normal) Comments: CONFIRMATORY TESTING FOR ALL POSITIVE URINE DRUG SCREENRESULTS WILL ONLY BE SENT OUT UPON PHYSICIAN ORDER.VISTA Urine Drug Screen methods provide only preliminaryanalytical test results. A more specific alternate chemicalmethod must be used in order to obtain a confirmedanalytical result. Gas chromatography/mass spectrometery(GC/MS) is the preferred confirmatory method. Clinicalconsideration and profe ssional judgement should be appliedto any drug of abuse test result, particularly whenpreliminary positive results are used.URINE TCA TESTING MUST BE ORDERED SEPARATELY. USE TESTMNEMONIC: [facility] 26-Bbt-974092:19 Anti-dsDNA Ab Comments: Test performed at:[facility] [address] [place] [address] dsDNA AB 4 {IU/mL} (Normal) Range: 0-9 Comments: Negative <5 Equivocal 5 - 9 Positive >9Performed at: - [facility] Pgvrvo3484 [place], [place] [id number] D irector: Johnathan Junior PhD, Phone: [phone] 70-Hhs-775431:19 CBC W/Diff, Automated Comments: Test performed at:[facility] Azjxmreizz34[address] [place], [place] [id number] Absolute Lymph 0.78 {X10_3/ul} (Abnormal) Range: 0.83-4.51 Absolute Neut 7.2 {X10_3/uL} (Normal) Range: 2.0-7.7 IM GRAN % 1.300 % (Abnormal) Range: 0.0-0.9 Comments: IG% - Immature Granulocytes (promyelocytes, myelocytes andmetamyelocytes) > 1% indicates that a LEFT SHIFT is Present. BASO% 0.7 % (Normal) Range: 0-1 EO% 1.3 % (Normal) Range: 0-5 MONO% 13.4 % (Abnormal) Range: 0-10 LY% 8.2 % (Abnormal) Range: 19-41 NEUT% 75.1 % (Abnormal) Range: 47-70 MPV 9.6 fL (Normal) Range: 6.2-12.0 PLT 351 K/mm3 (Normal) Range: 150-450 RDW SD 49.4 fL (Abnormal) Range: 35.1-43.9 RDW CV 15.2 % (Abnormal) Range: 11.6-14.6 MCHC 30.2 {g/gl} (Abnormal) Range: 32-36 MCH 26.9 pg (Abnormal) Range: 27.0-32.0 MCV 89.2 fL (Normal) Range: 81-99 HCT 33.8 % (Abnormal) Range: 37-47 HGB 10.2 g/dL (Abnormal) Range: 12.0-15.0 RBC 3.79 {M/mm3} (Abnormal) Range: 4.2-5.4 WBC 9.5 K/mm3 (Normal) Range: 4.4-11.0 72-Xrl-726897:19 Complement C3 Comments: Test performed at:[facility] [address] [place] [address] COMP C3 135 (Normal) Range: 90-180 Comments: Result Units: mg/dL AdultPerformed at: - [facility] [address] [id number] Director: Johnathan Junior PhD, Phone: [phone] 26-Lqi-456019:19 Complement C4 Comments: Test performed at:[facility] [address] [place] [address] COMP C4 27 (Normal) Range: 9-36 Comments: Result Units: mg/dL Adult 97-Bnp-339031:19 Comprehensive Metabolic Profil Comments: Test performed at:[facility] [address] [place] [address] GAP 8 (Normal) Range: 5-15 CO2 31.0 mmol/L (Normal) Range: 21.0-32.0 CL 100 mmol/L (Normal) Range: 98-107 K 3.6 mmol/L (Normal) Range: 3.5-5.1 NA 139 mmol/L (Normal) Range: 136-145 T BILI 0.30 mg/dL (Normal) Range: 0.00-4.00 ALT 30 U/L (Normal) Range: 12-78 ALK P 172 U/L (Abnormal) Range: 50-136 AST 31 U/L (Normal) Range: 15-37 CA 8.5 mg/dL (Normal) Range: 8.5-10.1 A/G 0.9 {RATIO} (Normal) Range: 0.9-2.4 GLOB 3.5 g/dL (Normal) Range: 2.7-4.2 ALB 3.3 g/dL (Abnormal) Range: 3.4-5.0 T PROT 6.8 g/dL (Normal) Range: 6.4-8.2 BUN/CRE 27.3 {RATIO} (Abnormal) Range: 10-20 CREAT,SERUM 1.1 mg/dL (Abnormal) Range: 0.6-1.0 BUN 30 mg/dL (Abnormal) Range: 7-18 GLU 92 mg/dL (Normal) Range: 70-110 73-Css-836032:19 Protein+Creatinine Ratio,Urine Comments: Test performed at:[facility] [address] [place], [place] [address] PROT:CRE RATIO 334 {mg/g_CRE} (Abnormal) Range: 0-200 PROTEIN,UR.RAN. 32.8 mg/dL (Abnormal) UR CREAT 98.0 mg/dL (Normal) 50-Rlb-505400:19 Urinalysis, Complete Comments: How was Urine Obtained? CLEAN CATCHTest performed at:[facility] [address] [place], [place] [address] HYALINE CAST 5-10 SEEN {/lpf} (Normal) Range: 0-5 MUCUS, URINE 0 SEEN {/hpf} (Normal) BACTERIA 0 SEEN {/hpf} (Normal) SQUAM EPI 0-5 SEEN {/hpf} (Normal) Range: 5-10 RBC-UA 0 SEEN {/hpf} (Normal) Range: 0-5 WBC 0-5 SEEN {/hpf} (Normal) Range: 0-5 LEUK ESTERASE 25 /ul (Abnormal) OCCULT BLOOD-UR Negative /ul (Normal) NITRITE UR Negative (Normal) UROBILI Normal mg/dL (Normal) PROT DIPSTX Negative mg/dL (Normal) pH UR 6.0 (Normal) Range: 5.0 - 8.0 SP.GR. DIPSTX 1.015 (Normal) Range: 1.002-1.030 KETONE UR Negative mg/dL (Normal) BILIRUBIN URINE Negative mg/dL (Normal) GLUCOSE, UR Normal mg/dL (Normal) CLARITY Sl. Cloudy (Normal) COLOR Yellow (Normal) 11-Grk-561108:41 CBC With Differential/Platelet Comments: PATIENT NOT FASTINGPERFORMED BY: [facility] CenterZpvcxy1924 [facility] [id number] Information: [id number] Immature Grans (Abs) 0.0 {x10E3/uL} (Normal) Range: 0.0-0.1 Immature Granulocytes 0 % (Normal) Baso (Absolute) 0.0 {x10E3/uL} (Normal) Range: 0.0-0.2 Eos (Absolute) 0.2 {x10E3/uL} (Normal) Range: 0.0-0.4 Monocytes(Absolute) 0.9 {x10E3/uL} (Normal) Range: 0.1-0.9 Lymphs (Absolute) 0.9 {x10E3/uL} (Normal) Range: 0.7-3.1 Neutrophils (Absolute) 6.7 {x10E3/uL} (Normal) Range: 1.4-7.0 Basos 0 % (Normal) Eos 2 % (Normal) Monocytes 10 % (Normal) Lymphs 10 % (Normal) Neutrophils 75 % (Normal) Platelets 370 {x10E3/uL} (Normal) Range: 150-379 RDW 14.9 % (Normal) Range: 12.3-15.4 MCHC 30.7 g/dL (Abnormal) Range: 31.5-35.7 MCH 26.3 pg (Abnormal) Range: 26.6-33.0 MCV 86 fL (Normal) Range: 79-97 Hematocrit 34.2 % (Normal) Range: 34.0-46.6 Hemoglobin 10.5 g/dL (Abnormal) Range: 11.1-15.9 RBC 4.00 {x10E6/uL} (Normal) Range: 3.77-5.28 WBC 8.9 {x10E3/uL} (Normal) Range: 3.4-10.8 :43 Basic Metabolic Profile (BMP) Comments: Test performed at:[facility] [id number] [place] [address] GAP 3 (Abnormal) Range: 5-15 CO2 33.0 mmol/L (Abnormal) Range: 21.0-32.0 CL 101 mmol/L (Normal) Range: 98-107 K 3.9 mmol/L (Normal) Range: 3.5-5.1 NA 137 mmol/L (Normal) Range: 136-145 CA 8.3 mg/dL (Abnormal) Range: 8.5-10.1 BUN/CRE 26.3 {RATIO} (Abnormal) Range: 10-20 CREAT,SERUM 0.8 mg/dL (Normal) Range: 0.6-1.0 BUN 21 mg/dL (Abnormal) Range: 7-18 GLU 85 mg/dL (Normal) Range: 70-110 [id number] CBC W/Diff, Automated Comments: Test performed at:[facility] [id number] [facility] [place] [address] Absolute Lymph 0.85 {X10_3/ul} (Normal) Range: 0.83-4.51 Absolute Neut 5.5 {X10_3/uL} (Normal) Range: 2.0-7.7 IM GRAN % 0.700 % (Normal) Range: 0.0-0.9 Comments: IG% - Immature Granulocytes (promyelocytes, myelocytes andmetamyelocytes) > 1% indicates that a LEFT SHIFT is Present. BASO% 0.4 % (Normal) Range: 0-1 EO% 2.3 % (Normal) Range: 0-5 MONO% 12.7 % (Abnormal) Range: 0-10 LY% 11.3 % (Abnormal) Range: 19-41 NEUT% 72.6 % (Abnormal) Range: 47-70 MPV 10.0 fL (Normal) Range: 6.2-12.0 PLT 254 K/mm3 (Normal) Range: 150-450 RDW SD 49.6 fL (Abnormal) Range: 35.1-43.9 RDW CV 15.2 % (Abnormal) Range: 11.6-14.6 MCHC 30.0 {g/gl} (Abnormal) Range: 32-36 MCH 27.3 pg (Normal) Range: 27.0-32.0 MCV 90.9 fL (Normal) Range: 81-99 HCT 32.0 % (Abnormal) Range: 37-47 HGB 9.6 g/dL (Abnormal) Range: 12.0-15.0 RBC 3.52 {M/mm3} (Abnormal) Range: 4.2-5.4 WBC 7.5 K/mm3 (Normal) Range: 4.4-11.0 :40 Basic Metabolic Profile (BMP) Comments: Serial Specimen #1, #2 or #3? 1'TROP' Serial specimen #1, #2, #3, or #4: 1Test performed at:[facility] [id number] [facility] [address] [place], [place] [id number] GAP 5 (Normal) Range: 5-15 CO2 38.0 mmol/L (Abnormal) Range: 21.0-32.0 CL 97 mmol/L (Abnormal) Range: 98-107 K 3.3 mmol/L (Abnormal) Range: 3.5-5.1 NA 140 mmol/L (Normal) Range: 136-145 CA 8.4 mg/dL (Abnormal) Range: 8.5-10.1 BUN/CRE 18.0 {RATIO} (Normal) Range: 10-20 Estimated CRCL 37.26 ml/min (Normal) CREAT,SERUM 1.0 mg/dL (Normal) Range: 0.6-1.0 BUN 18 mg/dL (Normal) Range: 7-18 GLU 86 mg/dL (Normal) Range: 70-110 :40 CBC W/Diff, Automated Comments: Test performed at:[facility] [id number] [place] [address] Absolute Lymph 1.10 {X10_3/ul} (Normal) Range: 0.83-4.51 Absolute Neut 4.9 {X10_3/uL} (Normal) Range: 2.0-7.7 IM GRAN % 1.200 % (Abnormal) Range: 0.0-0.9 Comments: IG% - Immature Granulocytes (promyelocytes, myelocytes andmetamyelocytes) > 1% indicates that a LEFT SHIFT is Present. BASO% 1.1 % (Abnormal) Range: 0-1 EO% 3.0 % (Normal) Range: 0-5 MONO% 14.7 % (Abnormal) Range: 0-10 LY% 14.6 % (Abnormal) Range: 19-41 NEUT% 65.4 % (Normal) Range: 47-70 MPV 9.8 fL (Normal) Range: 6.2-12.0 PLT 264 K/mm3 (Normal) Range: 150-450 RDW SD 50.5 fL (Abnormal) Range: 35.1-43.9 RDW CV 15.5 % (Abnormal) Range: 11.6-14.6 MCHC 31.0 {g/gl} (Abnormal) Range: 32-36 MCH 28.1 pg (Normal) Range: 27.0-32.0 MCV 90.6 fL (Normal) Range: 81-99 HCT 33.9 % (Abnormal) Range: 37-47 HGB 10.5 g/dL (Abnormal) Range: 12.0-15.0 RBC 3.74 {M/mm3} (Abnormal) Range: 4.2-5.4 WBC 7.6 K/mm3 (Normal) Range: 4.4-11.0 :40 CK-MB Quantitative and Index Comments: Serial Specimen #1, #2 or #3? 1'TROP' Serial specimen #1, #2, #3, or #4: 1Test performed at:[facility] [address] [place] [address] CPKMB 1.4 ng/mL (Normal) Range: 0.0-5.0 Comments: CK-MB and RI Interpretation MB Relative Index Non-AMI <or= 5 NA Indeterminate > 5 <or= 4 AMI > 5 > 4 CPK TOTAL 133 U/L (Normal) Range: 26-192 :40 Troponin-I Comments: Serial Specimen #1, #2 or #3? 1'TROP' Serial specimen #1, #2, #3, or #4: 1Test performed at:[facility] [address] [place] [address] TROPONIN-I < 0.02 ng/mL (Normal) Comments: TROPONIN-I EXPECTED VALUES <0.05 NEGATIVE 0.06 - 0.59 AT RISK OF CO > OR = 0.60 SUGGEST CO :30 Basic Metabolic Profile (BMP) Comments: Test performed at:[facility] [address] [place] [address] GAP 6 (Normal) Range: 5-15 CO2 34.0 mmol/L (Abnormal) Range: 21.0-32.0 CL 98 mmol/L (Normal) Range: 98-107 K 3.1 mmol/L (Abnormal) Range: 3.5-5.1 NA 138 mmol/L (Normal) Range: 136-145 CA 8.3 mg/dL (Abnormal) Range: 8.5-10.1 BUN/CRE 19.1 {RATIO} (Normal) Range: 10-20 Estimated CRCL 33.87 ml/min (Normal) CREAT,SERUM 1.1 mg/dL (Abnormal) Range: 0.6-1.0 BUN 21 mg/dL (Abnormal) Range: 7-18 GLU 102 mg/dL (Normal) Range: 70-110 :30 CBC W/Diff, Automated Comments: Test performed at:[facility] [address] [facility] [address] Absolute Lymph 0.79 {X10_3/ul} (Abnormal) Range: 0.83-4.51 Absolute Neut 7.9 {X10_3/uL} (Abnormal) Range: 2.0-7.7 IM GRAN % 0.300 % (Normal) Range: 0.0-0.9 Comments: IG% - Immature Granulocytes (promyelocytes, myelocytes andmetamyelocytes) > 1% indicates that a LEFT SHIFT is Present. BASO% 0.3 % (Normal) Range: 0-1 EO% 2.3 % (Normal) Range: 0-5 MONO% 11.3 % (Abnormal) Range: 0-10 LY% 7.8 % (Abnormal) Range: 19-41 NEUT% 78.0 % (Abnormal) Range: 47-70 MPV 9.2 fL (Normal) Range: 6.2-12.0 PLT 250 K/mm3 (Normal) Range: 150-450 RDW SD 50.8 fL (Abnormal) Range: 35.1-43.9 RDW CV 15.7 % (Abnormal) Range: 11.6-14.6 MCHC 30.4 {g/gl} (Abnormal) Range: 32-36 MCH 27.2 pg (Normal) Range: 27.0-32.0 MCV 89.4 fL (Normal) Range: 81-99 HCT 31.9 % (Abnormal) Range: 37-47 HGB 9.7 g/dL (Abnormal) Range: 12.0-15.0 RBC 3.57 {M/mm3} (Abnormal) Range: 4.2-5.4 WBC 10.2 K/mm3 (Normal) Range: 4.4-11.0 52-Ffw-367437:16 Lipid Profile Comments: Test performed at:[facility] [address] [facility] [address] VLDL 16 mg/dL (Normal) Range: 5-40 LDL 49 mg/dL (Normal) Range: 0-130 HDL 79 mg/dL (Normal) Comments: Reference Range HDL <40 mg/dL Low HDL Cholesterol HDL >or= 60 mg/dL High HDL Cholesterol TRIG 79 mg/dL (Normal) Range: 0-199 Comments: Serum Triglycerides Reference Interval Normal <150 mg/dL Borderline high 150 - 199 mg/dL High 200 - 499 mg/dL Very High > or = 500 mg/dL CHOL 144 mg/dL (Normal) Comments: <200 mg/dL Desirable 200-240 mg/dL Borderline >240 mg/dL High Risk 23-Tlb-150460:16 Liver Profile Comments: Test performed at:[facility] [address] [place], [place] [address] D BILI 0.09 mg/dL (Normal) Range: 0.00-0.30 T BILI 0.30 mg/dL (Normal) Range: 0.00-4.00 ALT 29 U/L (Normal) Range: 12-78 ALK P 116 U/L (Normal) Range: 50-136 AST 29 U/L (Normal) Range: 15-37 GLOB 3.6 g/dL (Normal) Range: 2.7-4.2 ALB 3.3 g/dL (Abnormal) Range: 3.4-5.0 T PROT 6.9 g/dL (Normal) Range: 6.4-8.2 04-Lye-911250:50 IRON BINDING CAPACITY (TIBC) Comments: PATIENT NOT FASTINGPERFORMED BY: [employer] [facility] [id number] ([id number]) Iron Saturation 13 % (Abnormal) Range: 15-55 Iron, Serum 51 ug/dL (Normal) Range: 35-155 UIBC 328 ug/dL (Normal) Range: 150-375 Iron Bind.Cap.(TIBC) 379 ug/dL (Normal) Range: 250-450 88-Izi-059992:50 FERRITIN ([id number]) Comments: PATIENT NOT FASTINGPERFORMED BY: [facility]am18CoHoboken University Medical CenterPpevgm0081 [facility] [id number] Ferritin, Serum 33 ng/mL (Normal) Range: 15-150 81-Upl-666524:50 CBC W/AUTO DIFF WBC Comments: PATIENT NOT FASTINGPERFORMED BY: ClearCycleHoboken [facility] Medical CenterXnqslh0399 [facility] [id number] Information: [id number] ([id number]) Immature Grans (Abs) 0.0 {x10E3/uL} (Normal) Range: 0.0-0.1 Immature Granulocytes 0 % (Normal) Baso (Absolute) 0.1 {x10E3/uL} (Normal) Range: 0.0-0.2 Eos (Absolute) 0.2 {x10E3/uL} (Normal) Range: 0.0-0.4 Monocytes(Absolute) 1.2 {x10E3/uL} (Abnormal) Range: 0.1-0.9 Lymphs (Absolute) 1.1 {x10E3/uL} (Normal) Range: 0.7-3.1 Neutrophils (Absolute) 8.4 {x10E3/uL} (Abnormal) Range: 1.4-7.0 Basos 1 % (Normal) Eos 2 % (Normal) Monocytes 11 % (Normal) Lymphs 10 % (Normal) Neutrophils 76 % (Normal) Platelets 298 {x10E3/uL} (Normal) Range: 150-379 RDW 16.1 % (Abnormal) Range: 12.3-15.4 MCHC 30.8 g/dL (Abnormal) Range: 31.5-35.7 MCH 27.9 pg (Normal) Range: 26.6-33.0 MCV 91 fL (Normal) Range: 79-97 Hematocrit 35.4 % (Normal) Range: 34.0-46.6 Hemoglobin 10.9 g/dL (Abnormal) Range: 11.1-15.9 RBC 3.91 {x10E6/uL} (Normal) Range: 3.77-5.28 WBC 11.0 {x10E3/uL} (Abnormal) Range: 3.4-10.8 18-Pyt-213653:59 FECAL OCCULT- Tubes sent home ([id number]) FECAL OCCULT HGB ASSAY, QUAL, 1-3 SIMULTANEOU negative (Normal) 28-Sma-535167:10 VITAMIN B-12 (CYANOCOBALAMIN) Comments: PATIENT NOT FASTINGPERFORMED BY: [facility]6370 [facility] [id number] ([id number]) Vitamin B12 528 pg/mL (Normal) Range: 211-946 69-Ggd-221887:10 RETICULOCYTE COUNT MANUL Comments: PATIENT NOT FASTINGPERFORMED BY: NERIS [employer] Qxtzjb7184 [facility] [id number] ([id number]) Reticulocyte Count 2.9 % (Abnormal) Range: 0.6-2.6 04-Tfn-181052:10 LDH (LD) (LACTATE DEHYDROGENASE) Comments: PATIENT NOT FASTINGPERFORMED BY: [facility]6370 [facility] [id number] ([id number]) LDH 308 [iU]/L (Abnormal) Range: 119-226 00-Dfy-431951:10 IRON BINDING CAPACITY (TIBC) Comments: PATIENT NOT FASTINGPERFORMED BY: [facility]6370 [facility] [id number] ([id number]) Iron Saturation 26 % (Normal) Range: 15-55 Iron, Serum 104 ug/dL (Normal) Range: 35-155 UIBC 298 ug/dL (Normal) Range: 150-375 Iron Bind.Cap.(TIBC) 402 ug/dL (Normal) Range: 250-450 72-Rob-099882:10 FERRITIN ([id number]) Comments: PATIENT NOT FASTINGPERFORMED BY: [facility]6370 [facility] [id number] Ferritin, Serum 47 ng/mL (Normal) Range: 15-150 61-Aex-102034:10 CBC, PLATELETS & AUT DIFF Comments: PATIENT NOT FASTINGPERFORMED BY: [facility]6370 [facility] [id number] Information: [id number] ([id number]) Immature Grans (Abs) 0.0 {x10E3/uL} (Normal) Range: 0.0-0.1 Immature Granulocytes 0 % (Normal) Baso (Absolute) 0.1 {x10E3/uL} (Normal) Range: 0.0-0.2 Eos (Absolute) 0.2 {x10E3/uL} (Normal) Range: 0.0-0.4 Monocytes(Absolute) 0.8 {x10E3/uL} (Normal) Range: 0.1-0.9 Lymphs (Absolute) 1.0 {x10E3/uL} (Normal) Range: 0.7-3.1 Neutrophils (Absolute) 5.0 {x10E3/uL} (Normal) Range: 1.4-7.0 Basos 1 % (Normal) Eos 3 % (Normal) Monocytes 12 % (Normal) Lymphs 14 % (Normal) Neutrophils 70 % (Normal) Platelets 253 {x10E3/uL} (Normal) Range: 150-379 RDW 19.0 % (Abnormal) Range: 12.3-15.4 MCHC 31.2 g/dL (Abnormal) Range: 31.5-35.7 MCH 27.5 pg (Normal) Range: 26.6-33.0 MCV 88 fL (Normal) Range: 79-97 Hematocrit 29.5 % (Abnormal) Range: 34.0-46.6 Hemoglobin 9.2 g/dL (Abnormal) Range: 11.1-15.9 RBC 3.35 {x10E6/uL} (Abnormal) Range: 3.77-5.28 WBC 7.2 {x10E3/uL} (Normal) Range: 3.4-10.8 89-Mky-506263:06 CBC-Complete Blood Cnt No Diff Comments: Test performed at:[facility] [address] [place], [place] [address] MPV 10.6 fL (Normal) Range: 6.2-12.0 PLT 225 K/mm3 (Normal) Range: 150-450 RDW SD 63.6 fL (Abnormal) Range: 35.1-43.9 RDW CV 19.6 % (Abnormal) Range: 11.6-14.6 MCHC 29.2 {g/gl} (Abnormal) Range: 32-36 MCH 27.2 pg (Normal) Range: 27.0-32.0 MCV 93.2 fL (Normal) Range: 81-99 HCT 30.1 % (Abnormal) Range: 37-47 HGB 8.8 g/dL (Abnormal) Range: 12.0-15.0 RBC 3.23 {M/mm3} (Abnormal) Range: 4.2-5.4 WBC 8.2 K/mm3 (Normal) Range: 4.4-11.0 46-Gxh-225041:25 Basic Metabolic Profile (BMP) Comments: Serial Specimen #1, #2 or #3? 1'TROP' Serial specimen #1, #2, #3, or #4: 1Test performed at:[facility] [address] [place] [address] GAP 3 (Abnormal) Range: 5-15 CO2 37.0 mmol/L (Abnormal) Range: 21.0-32.0 CL 100 mmol/L (Normal) Range: 98-107 K 3.2 mmol/L (Abnormal) Range: 3.5-5.1 NA 140 mmol/L (Normal) Range: 136-145 CA 8.3 mg/dL (Abnormal) Range: 8.5-10.1 BUN/CRE 22.3 {RATIO} (Abnormal) Range: 10-20 Estimated CRCL 28.66 ml/min (Normal) CREAT,SERUM 1.3 mg/dL (Abnormal) Range: 0.6-1.0 BUN 29 mg/dL (Abnormal) Range: 7-18 GLU 135 mg/dL (Abnormal) Range: 70-110 Comments: Fasting Glucose result greater than or equal to 126 mg/dLsuggests DIABETES MELLITUS per A.D.A. criteria. 80-Lyh-498234:25 CBC W/Diff, Automated Comments: Test performed at:[facility] [address] [facility] [place] [address] Absolute Lymph 1.07 {X10_3/ul} (Normal) Range: 0.83-4.51 Absolute Neut 4.7 {X10_3/uL} (Normal) Range: 2.0-7.7 IM GRAN % 0.300 % (Normal) Range: 0.0-0.9 Comments: IG% - Immature Granulocytes (promyelocytes, myelocytes andmetamyelocytes) > 1% indicates that a LEFT SHIFT is Present. BASO% 0.9 % (Normal) Range: 0-1 EO% 2.6 % (Normal) Range: 0-5 MONO% 14.1 % (Abnormal) Range: 0-10 LY% 15.2 % (Abnormal) Range: 19-41 NEUT% 66.9 % (Normal) Range: 47-70 MPV 9.6 fL (Normal) Range: 6.2-12.0 PLT 269 K/mm3 (Normal) Range: 150-450 RDW SD 48.1 fL (Abnormal) Range: 35.1-43.9 RDW CV 14.8 % (Abnormal) Range: 11.6-14.6 MCHC 30.0 {g/gl} (Abnormal) Range: 32-36 MCH 26.5 pg (Abnormal) Range: 27.0-32.0 MCV 88.2 fL (Normal) Range: 81-99 HCT 28.3 % (Abnormal) Range: 37-47 HGB 8.5 g/dL (Abnormal) Range: 12.0-15.0 RBC 3.21 {M/mm3} (Abnormal) Range: 4.2-5.4 WBC 7.0 K/mm3 (Normal) Range: 4.4-11.0 99-Zal-280518:25 CK-MB Quantitative and Index Comments: Serial Specimen #1, #2 or #3? 1'TROP' Serial specimen #1, #2, #3, or #4: 1Test performed at:[facility] [address] [place] [address] CPKMB 1.8 ng/mL (Normal) Range: 0.0-5.0 Comments: CK-MB and RI Interpretation MB Relative Index Non-AMI <or= 5 NA Indeterminate > 5 <or= 4 AMI > 5 > 4 CPK TOTAL 165 U/L (Normal) Range: 26-192 98-Dwe-310264:25 Troponin-I Comments: Serial Specimen #1, #2 or #3? 1'TROP' Serial specimen #1, #2, #3, or #4: 1Test performed at:[facility] [address] [place] [address] TROPONIN-I < 0.02 ng/mL (Normal) Comments: TROPONIN-I EXPECTED VALUES <0.05 NEGATIVE 0.06 - 0.59 AT RISK OF CO > OR = 0.60 SUGGEST CO 51-Lmf-720607:04 BMP GAP 2 (Abnormal) Range: 5-15 CO2 35.0 mmol/L (Abnormal) Range: 21.0-32.0 CL 99 mmol/L (Normal) Range: 98-107 K 4.0 mmol/L (Normal) Range: 3.5-5.1 NA 136 mmol/L (Normal) Range: 136-145 CA 8.6 mg/dL (Normal) Range: 8.5-10.1 BC 26.7 {RATIO} (Abnormal) Range: 10-20 CREAT 1.2 mg/dL (Abnormal) Range: 0.6-1.0 BUN 32 mg/dL (Abnormal) Range: 7-18 GLU 87 mg/dL (Normal) Range: 70-110 :00 C3 124 (Normal) Range: 90-180 Comments: Result Units: mg/dL AdultPerformed at: - [facility] [address] [id number] Director: Johnathan Junior PhD, Phone: [phone] :[phone] C4 26 (Normal) Range: 9-36 Comments: Result Units: mg/dL Adult :00 CBCD ALC 1.02 {X10_3/ul} (Normal) Range: 0.83-4.51 ANC 5.1 {X10_3/uL} (Normal) Range: 2.0-7.7 IG% 0.400 % (Normal) Range: 0.0-0.9 Comments: IG% - Immature Granulocytes (promyelocytes, myelocytes andmetamyelocytes) > 1% indicates that a LEFT SHIFT is Present. B% 0.7 % (Normal) Range: 0-1 E% 4.3 % (Normal) Range: 0-5 M% 14.9 % (Abnormal) Range: 0-10 L% 13.4 % (Abnormal) Range: 19-41 N% 66.3 % (Normal) Range: 47-70 MPV 10.4 fL (Normal) Range: 6.2-12.0 PLT 228 K/mm3 (Normal) Range: 150-450 RDWSD 46.3 fL (Abnormal) Range: 35.1-43.9 RDWCV 14.8 % (Abnormal) Range: 11.6-14.6 MCHC 31.7 {g/gl} (Abnormal) Range: 32-36 MCH 28.0 pg (Normal) Range: 27.0-32.0 MCV 88.3 fL (Normal) Range: 81-99 HCT 37.8 % (Normal) Range: 37-47 HGB 12.0 g/dL (Normal) Range: 12.0-15.0 RBC 4.28 {M/mm3} (Normal) Range: 4.2-5.4 WBC 7.6 K/mm3 (Normal) Range: 4.4-11.0 :00 CMP GAP 2 (Abnormal) Range: 5-15 CO2 37.0 mmol/L (Abnormal) Range: 21.0-32.0 CL 98 mmol/L (Normal) Range: 98-107 K 4.1 mmol/L (Normal) Range: 3.5-5.1 NA 137 mmol/L (Normal) Range: 136-145 BIT 0.40 mg/dL (Normal) Range: 0.00-4.00 ALT 31 U/L (Normal) Range: 12-78 ALK 105 U/L (Normal) Range: 50-136 AST 36 U/L (Normal) Range: 15-37 CA 8.7 mg/dL (Normal) Range: 8.5-10.1 AG 1.0 {RATIO} (Normal) Range: 0.9-2.4 GLOB 3.5 g/dL (Normal) Range: 2.7-4.2 ALB 3.5 g/dL (Normal) Range: 3.4-5.0 TPROT 7.0 g/dL (Normal) Range: 6.4-8.2 BC 20.8 {RATIO} (Abnormal) Range: 10-20 CREAT 1.2 mg/dL (Abnormal) Range: 0.6-1.0 BUN 25 mg/dL (Abnormal) Range: 7-18 GLU 106 mg/dL (Normal) Range: 70-110 :00 DNAAB-[facility] 5 {IU/mL} (Normal) Range: 0-9 Comments: Negative <5Equivocal 5 - 9Positive >9Performed at: CB - [facility] [address] [id number] Director: Johnathan Junior PhD, Phone: [phone] :[phone] PROCRER tPROCRER 392 {mg/g_CRE} (Abnormal) Range: 0-200 PROUR 10.0 mg/dL (Normal) CREU 25.5 mg/dL (Normal) :00 [facility] Comments: How was Urine Obtained? CLEAN CATCH UMUC 0 SEEN {/hpf} (Normal) UBAC 0 SEEN {/hpf} (Normal) UEPIS 0 SEEN {/hpf} (Normal) Range: 5-10 URBC 0 SEEN {/hpf} (Normal) Range: 0-5 UWBC 0 SEEN {/hpf} (Normal) Range: 0-5 SAVAGE Negative /ul (Normal) UOB Negative /ul (Normal) BARB Negative (Normal) UROBU Normal mg/dL (Normal) uPROTU Negative mg/dL (Normal) IRENE 6.5 (Normal) Range: 5.0 - 8.0 SGU 1.010 (Normal) Range: 1.002-1.030 KETU Negative mg/dL (Normal) BILIU Negative mg/dL (Normal) GLUR Normal mg/dL (Normal) UCLAR Clear (Normal) UCOL Straw (Normal) :54 CBC, PLATELETS & MANUAL DIFF ([id number]) Comments: recheck 03-08-14:11 B12 817 pg/mL (Normal) Range: 211-911 :11 CBCD ALC 1.16 {X10_3/ul} (Normal) Range: 0.83-4.51 ANC 4.7 {X10_3/uL} (Normal) Range: 2.0-7.7 IG% 0.400 % (Normal) Range: 0.0-0.9 Comments: IG% - Immature Granulocytes (promyelocytes, myelocytes andmetamyelocytes) > 1% indicates that a LEFT SHIFT is Present. B% 0.8 % (Normal) Range: 0-1 E% 3.3 % (Normal) Range: 0-5 M% 14.9 % (Abnormal) Range: 0-10 L% 16.0 % (Abnormal) Range: 19-41 N% 64.6 % (Normal) Range: 47-70 MPV 9.6 fL (Normal) Range: 6.2-12.0 PLT 234 K/mm3 (Normal) Range: 150-450 RDWSD 44.3 fL (Abnormal) Range: 35.1-43.9 RDWCV 13.8 % (Normal) Range: 11.6-14.6 MCHC 30.5 {g/gl} (Abnormal) Range: 32-36 MCH 27.0 pg (Normal) Range: 27.0-32.0 MCV 88.6 fL (Normal) Range: 81-99 HCT 30.2 % (Abnormal) Range: 37-47 HGB 9.2 g/dL (Abnormal) Range: 12.0-15.0 RBC 3.41 {M/mm3} (Abnormal) Range: 4.2-5.4 WBC 7.3 K/mm3 (Normal) Range: 4.4-11.0 :11 BRIAN Comments: CMV NEG?* NGive When? 02/22@0800Irradiated? NLeukodepleted? YReason for Type & Screen/Red Cells: ANEMIA DATRES NEG w/POLYSPECIFIC (Normal) :11 FE 115 ug/dL (Normal) Comments: Serial Specimen #1, #2 or #3? 1Is Patient Taking Vitamins or Folic Acid Supplements? N Range: 50-170 :11 BRUNO 23 ng/mL (Normal) Comments: Serial Specimen #1, #2 or #3? 1Is Patient Taking Vitamins or Folic Acid Supplements? N Range: 8-252 :11 FOL > 100.00 ng/mL (Abnormal) Comments: Serial Specimen #1, #2 or #3? 1Is Patient Taking Vitamins or Folic Acid Supplements? N Range: 3.1-17.5 :11 LDH 302 U/L (Abnormal) Comments: Serial Specimen #1, #2 or #3? 1Is Patient Taking Vitamins or Folic Acid Supplements? N Range: 87-241 :11 METHYL 416 nmol/L (Abnormal) Range: 0-378 Comments: Please note reference interval changePerformed at: - [facility] [id number] Director: Ciaran Valles MD, Phone: [phone] :[phone] RETIC retIPF 1.5 % (Normal) Range: 1.0-7.9 Comments: Low PLT + Low IPF suggest a bone marrow production disorderLow PLT + high IPF suggests peripheral destruction(e.g.ITP, TTP, HIT, DIC, autoimmune) or bone marrow recoveryTrending of serial IPF measuremen ts is recommended whenevaluating for bone marrow responesValue above normal range indicates an increase in RBCcellular response from bone marrow. tRET-HE 31.0 pg (Normal) Range: 30-35 IRF 11.80 % (Normal) Range: 3.00-15.90 RETCT 1.79 % (Abnormal) Range: 0.5-1.5 :11 TIBC 473 ug/dL (Abnormal) Comments: Serial Specimen #1, #2 or #3? 1Is Patient Taking Vitamins or Folic Acid Supplements? N Range: 250-450 44-Iow-011296:11 TS Comments: CMV NEG?* NGive When? 02/22@0800Irradiated? NLeukodepleted? YReason for Type & Screen/Red Cells: ANEMIA SC3 NEGATIVE (Normal) SC2 NEGATIVE (Normal) SC1 NEGATIVE (Normal) ABS NEGATIVE (Normal) BT A POSITIVE (Normal) 88-Gwh-768139:25 FECAL OCCULT- Tubes sent home ([id number]) FECAL OCCULT HGB ASSAY, QUAL, negative (Normal) 1-3 [facility] :08 HCT 29.9 % (Abnormal) Range: 37-47 :08 HGB 9.1 g/dL (Abnormal) Range: 12.0-15.0 :53 CBCD ALC 1.20 {X10_3/ul} (Normal) Range: 0.83-4.51 ANC 5.0 {X10_3/uL} (Normal) Range: 2.0-7.7 IG% 0.300 % (Normal) Range: 0.0-0.9 Comments: IG% - Immature Granulocytes (promyelocytes, myelocytes andmetamyelocytes) > 1% indicates that a LEFT SHIFT is Present. B% 0.5 % (Normal) Range: 0-1 E% 3.2 % (Normal) Range: 0-5 M% 15.5 % (Abnormal) Range: 0-10 L% 15.5 % (Abnormal) Range: 19-41 N% 65.0 % (Normal) Range: 47-70 MPV 9.8 fL (Normal) Range: 6.2-12.0 PLT 236 K/mm3 (Normal) Range: 150-450 RDWSD 44.1 fL (Abnormal) Range: 35.1-43.9 RDWCV 13.5 % (Normal) Range: 11.6-14.6 MCHC 30.3 {g/gl} (Abnormal) Range: 32-36 MCH 26.9 pg (Abnormal) Range: 27.0-32.0 MCV 88.7 fL (Normal) Range: 81-99 HCT 29.0 % (Abnormal) Range: 37-47 HGB 8.8 g/dL (Abnormal) Range: 12.0-15.0 RBC 3.27 {M/mm3} (Abnormal) Range: 4.2-5.4 WBC 7.7 K/mm3 (Normal) Range: 4.4-11.0 :53 CMP GAP 1 (Abnormal) Range: 5-15 CO2 37.0 mmol/L (Abnormal) Range: 21.0-32.0 CL 99 mmol/L (Normal) Range: 98-107 K 3.7 mmol/L (Normal) Range: 3.5-5.1 NA 137 mmol/L (Normal) Range: 136-145 BIT 0.30 mg/dL (Normal) Range: 0.00-4.00 ALT 31 U/L (Normal) Range: 12-78 ALK 97 U/L (Normal) Range: 50-136 AST 34 U/L (Normal) Range: 15-37 CA 8.6 mg/dL (Normal) Range: 8.5-10.1 AG 1.0 {RATIO} (Normal) Range: 0.9-2.4 GLOB 3.3 g/dL (Normal) Range: 2.7-4.2 ALB 3.3 g/dL (Abnormal) Range: 3.4-5.0 TPROT 6.6 g/dL (Normal) Range: 6.4-8.2 BC 23.6 {RATIO} (Abnormal) Range: 10-20 CREAT 1.1 mg/dL (Abnormal) Range: 0.6-1.0 BUN 26 mg/dL (Abnormal) Range: 7-18 GLU 77 mg/dL (Normal) Range: 70-110 :11 BMP GAP 3 (Abnormal) Range: 5-15 CO2 33.0 mmol/L (Abnormal) Range: 21.0-32.0 CL 101 mmol/L (Normal) Range: 98-107 K 4.4 mmol/L (Normal) Range: 3.5-5.1 NA 137 mmol/L (Normal) Range: 136-145 CA 9.0 mg/dL (Normal) Range: 8.5-10.1 BC 22.7 {RATIO} (Abnormal) Range: 10-20 CREAT 1.1 mg/dL (Abnormal) Range: 0.6-1.0 BUN 25 mg/dL (Abnormal) Range: 7-18 GLU 88 mg/dL (Normal) Range: 70-110 6-Fnm-029955:11 BTNP 235.3 pg/mL (Abnormal) Range: 0-100 :11 CBCD ALC 1.36 {X10_3/ul} (Normal) Range: 0.83-4.51 ANC 5.0 {X10_3/uL} (Normal) Range: 2.0-7.7 IG% 0.500 % (Normal) Range: 0.0-0.9 Comments: IG% - Immature Granulocytes (promyelocytes, myelocytes andmetamyelocytes) > 1% indicates that a LEFT SHIFT is Present. B% 0.5 % (Normal) Range: 0-1 E% 3.5 % (Normal) Range: 0-5 M% 12.7 % (Abnormal) Range: 0-10 L% 17.8 % (Abnormal) Range: 19-41 N% 65.0 % (Normal) Range: 47-70 MPV 10.3 fL (Normal) Range: 6.2-12.0 PLT 233 K/mm3 (Normal) Range: 150-450 RDWSD 42.6 fL (Normal) Range: 35.1-43.9 RDWCV 13.5 % (Normal) Range: 11.6-14.6 MCHC 31.1 {g/gl} (Abnormal) Range: 32-36 MCH 27.6 pg (Normal) Range: 27.0-32.0 MCV 88.9 fL (Normal) Range: 81-99 HCT 31.2 % (Abnormal) Range: 37-47 HGB 9.7 g/dL (Abnormal) Range: 12.0-15.0 RBC 3.51 {M/mm3} (Abnormal) Range: 4.2-5.4 WBC 7.6 K/mm3 (Normal) Range: 4.4-11.0 :54 BMP CO2 33.0 mmol/L (Abnormal) Range: 21.0-32.0 GAP 4 (Abnormal) Range: 5-15 CL 100 mmol/L (Normal) Range: 98-107 K 3.5 mmol/L (Normal) Range: 3.5-5.1 NA 137 mmol/L (Normal) Range: 136-145 CA 8.7 mg/dL (Normal) Range: 8.5-10.1 BC 23.6 {RATIO} (Abnormal) Range: 10-20 CREAT 1.1 mg/dL (Abnormal) Range: 0.6-1.0 BUN 26 mg/dL (Abnormal) Range: 7-18 GLU 79 mg/dL (Normal) Range: 70-110 :54 MG 1.6 mg/dL (Abnormal) Range: 1.8-2.4 :54 T4 8.9 ug/dL (Normal) Range: 4.8-13.9 :54 TSH 2.73 {uIU/mL} (Normal) Range: 0.358-3.74 :35 BMP Comments: DR BARBOZA ORDERED LIVER LIPID ONLY CO2 32.0 mmol/L (Normal) Range: 21.0-32.0 GAP 7 (Normal) Range: 5-15 CL 98 mmol/L (Normal) Range: 98-107 K 4.2 mmol/L (Normal) Range: 3.5-5.1 CA 9.0 mg/dL (Normal) Range: 8.5-10.1 NA 137 mmol/L (Normal) Range: 136-145 BC 25.6 {RATIO} (Abnormal) Range: 10-20 CREAT 0.9 mg/dL (Normal) Range: 0.6-1.0 BUN 23 mg/dL (Abnormal) Range: 7-18 GLU 82 mg/dL (Normal) Range: 70-110 :36 CBCD ALC 1.44 {X10_3/ul} (Normal) Range: 0.83-4.51 ANC 5.1 {X10_3/uL} (Normal) Range: 2.0-7.7 IG% 0.700 % (Normal) Range: 0.0-0.9 Comments: IG% - Immature Granulocytes (promyelocytes, myelocytes andmetamyelocytes) > 1% indicates that a LEFT SHIFT is Present. B% 0.9 % (Normal) Range: 0-1 E% 6.2 % (Abnormal) Range: 0-5 L% 17.8 % (Abnormal) Range: 19-41 M% 11.6 % (Abnormal) Range: 0-10 MPV 9.8 fL (Normal) Range: 6.2-12.0 N% 62.8 % (Normal) Range: 47-70 PLT 217 K/mm3 (Normal) Range: 150-450 RDWCV 14.2 % (Normal) Range: 11.6-14.6 RDWSD 47.5 fL (Abnormal) Range: 35.1-43.9 MCHC 31.6 {g/gl} (Abnormal) Range: 32-36 MCH 28.9 pg (Normal) Range: 27.0-32.0 HCT 34.5 % (Abnormal) Range: 37-47 MCV 91.5 fL (Normal) Range: 81-99 HGB 10.9 g/dL (Abnormal) Range: 12.0-15.0 RBC 3.77 {M/mm3} (Abnormal) Range: 4.2-5.4 WBC 8.1 K/mm3 (Normal) Range: 4.4-11.0 :35 LIPID Comments: DR BARBOZA ORDERED LIVER LIPID ONLY VLDL 12 mg/dL (Normal) Range: 5-40 HDL 73 mg/dL (Normal) Comments: Reference RangeHDL <40 mg/dL Low HDL CholesterolHDL >or= 60 mg/dL High HDL Cholesterol LDL 55 mg/dL (Normal) Range: 0-130 CHOL 140 mg/dL (Normal) Comments: <200 mg/dL [id number] mg/dL Borderline>240 mg/dL High Risk TRIG 61 mg/dL (Normal) Range: 0-199 Comments: Serum Triglycerides Reference IntervalNormal <150 mg/dLBorderline high 150 - 199 mg/dLHigh 200 - 499 mg/ dLVery High > or = 500 mg/dL :35 LIVER Comments: DR BARBOZA ORDERED LIVER LIPID ONLY BID 0.07 mg/dL (Normal) Range: 0.00-0.30 BIT 0.40 mg/dL (Normal) Range: 0.00-1.00 ALT 32 U/L (Normal) Range: 12-78 ALK 99 U/L (Normal) Range: 45-117 AST 35 U/L (Normal) Range: 15-37 ALB 3.3 g/dL (Abnormal) Range: 3.4-5.0 TPROT 6.8 g/dL (Normal) Range: 6.4-8.2 [id number] Metabolic Panel, Basic Comments: PATIENT NOT FASTINGPERFORMED BY: NERIS BehanceCoH[facility] [id number] [facility] [id number] Information: [id number] ([id number]) Calcium, Serum 9.1 mg/dL (Normal) Range: 8.6-10.2 Carbon Dioxide, Total 24 mmol/L (Normal) Range: 20-32 Chloride, Serum 98 mmol/L (Normal) Range: 97-108 Potassium, Serum 4.7 mmol/L (Normal) Range: 3.5-5.2 Sodium, Serum 135 mmol/L (Normal) Range: 134-144 BUN/Creatinine Ratio 22 (Normal) Range: 11-26 eGFR If Africn Am 86 mL/min/1.73 (Normal) Creatinine, Serum 0.78 mg/dL (Normal) Range: 0.57-1.00 eGFR If NonAfricn Am 75 mL/min/1.73 (Normal) BUN 17 mg/dL (Normal) Range: 8-27 Glucose, Serum 75 mg/dL (Normal) Range: 65-99 [id number] CBC With Differential/Platelet Comments: PERFORMED BY: NERIS LabCoH[facility] [id number] [facility] [id number] Information: 08/09@7AM 08/10@7AM Immature Grans (Abs) 0.0 {x10E3/uL} (Normal) Range: 0.0-0.1 Immature Granulocytes 0 % (Normal) Range: 0-2 Baso (Absolute) 0.1 {x10E3/uL} (Normal) Range: 0.0-0.2 Eos (Absolute) 0.1 {x10E3/uL} (Normal) Range: 0.0-0.4 Monocytes(Absolute) 1.3 {x10E3/uL} (Abnormal) Range: 0.1-1.0 Lymphs (Absolute) 1.4 {x10E3/uL} (Normal) Range: 0.7-4.5 Neutrophils (Absolute) 6.0 {x10E3/uL} (Normal) Range: 1.8-7.8 Basos 1 % (Normal) Range: 0-3 Eos 1 % (Normal) Range: 0-7 Monocytes 14 % (Abnormal) Range: 4-13 Lymphs 16 % (Normal) Range: 14-46 Neutrophils 68 % (Normal) Range: 40-74 Platelets 266 {x10E3/uL} (Normal) Range: 140-415 RDW 14.6 % (Normal) Range: 12.3-15.4 MCHC 32.2 g/dL (Normal) Range: 31.5-35.7 MCH 28.9 pg (Normal) Range: 26.6-33.0 MCV 90 fL (Normal) Range: 79-97 Hematocrit 45.3 % (Normal) Range: 34.0-46.6 Hemoglobin 14.6 g/dL (Normal) Range: 11.1-15.9 RBC 5.05 {x10E6/uL} (Normal) Range: 3.77-5.28 WBC 8.9 {x10E3/uL} (Normal) Range: 4.0-10.5 77-Rbo-029509:39 Comp. Metabolic Panel (14) Comments: PERFORMED BY: [facility] CenterGsqmds1618 [facility] [id number] ALT (SGPT) 27 [iU]/L (Normal) Range: 0-32 Alkaline Phosphatase, S 110 [iU]/L (Normal) Range: 25-165 AST (SGOT) 29 [iU]/L (Normal) Range: 0-40 Bilirubin, Total 0.4 mg/dL (Normal) Range: 0.0-1.2 A/G Ratio 1.7 (Normal) Range: 1.1-2.5 Globulin, Total 2.3 g/dL (Normal) Range: 1.5-4.5 Albumin, Serum 3.9 g/dL (Normal) Range: 3.5-4.8 Calcium, Serum 8.8 mg/dL (Normal) Range: 8.6-10.2 Protein, Total, Serum 6.2 g/dL (Normal) Range: 6.0-8.5 Carbon Dioxide, Total 25 mmol/L (Normal) Range: 20-32 Chloride, Serum 100 mmol/L (Normal) Range: 97-108 Potassium, Serum 4.5 mmol/L (Normal) Range: 3.5-5.2 Sodium, Serum 138 mmol/L (Normal) Range: 134-144 BUN/Creatinine Ratio 22 (Normal) Range: 11-26 eGFR If Africn Am 89 mL/min/1.73 (Normal) eGFR If NonAfricn Am 77 mL/min/1.73 (Normal) Creatinine, Serum 0.76 mg/dL (Normal) Range: 0.57-1.00 BUN 17 mg/dL (Normal) Range: 8-27 Glucose, Serum 83 mg/dL (Normal) Range: 65-99 :39 Creatinine Clearance Comments: PERFORMED BY: [employer] [facility] [id number] Creatinine Clearance 95 mL/min (Normal) Range: 88-128 Comments: The above range is based on 1.73 square meter average body surfacearea. Creatinine, Ur 24hr 1035.0 {mg/24_hr} Range: 800.0-1800.0 (Normal) Creatinine, Urine 57.5 mg/dL (Normal) Range: 15.0-278.0 Magnesium, Serum 1.9 mg/dL (Normal) Comments: PERFORMED BY: [employer] [facility] [id number] :39 Range: 1.6-2.6 :39 Microalbumin, 24 hr Urine Comments: PERFORMED BY: [employer] [facility] [id number] Microalbumin, Urine 83.6 ug/mL (Abnormal) Range: 0.0-17.0 Microalbumin,mg/day 150.5 {mg/day} (Abnormal) Phosphorus, Serum 4.0 mg/dL (Normal) Comments: PERFORMED BY: [employer] [facility] [id number] 3:39 Range: 2.5-4.5 :39 Protein Electro, Random Urine Comments: PERFORMED BY: [employer] [facility] [id number] Please note: SPRCS (Normal) Comments: Protein electrophoresis scan will follow via computer, mail, orcourier delivery. Gamma Globulin, U 7.4 % (Normal) M-[place], % Not Observed % (Normal) Svexw-5-Fxnkviwo, U 7.6 % (Normal) Beta Globulin, U 15.9 % (Normal) Albumin, U 64.4 % (Normal) Fdgvb-7-Exjecgaj, U 4.7 % (Normal) Protein,Total,Urine 22.6 mg/dL (Abnormal) Range: 0.0-15.0 95-Itx-258750:39 Protein Electro.,S Comments: PERFORMED BY: [employer] [facility] [id number] A/G Ratio 1.1 (Normal) Range: 0.7-2.0 Please note: SPRCS (Normal) Comments: Protein electrophoresis scan will follow via computer, mail, orcourier delivery. Globulin, Total 2.9 g/dL (Normal) Range: 2.0-4.5 M-[place] Not Observed g/dL (Normal) Gamma Globulin 0.9 g/dL (Normal) Range: 0.5-1.6 Oxmst-9-Cqembtgj 0.9 g/dL (Normal) Range: 0.4-1.2 Beta Globulin 0.8 g/dL (Normal) Range: 0.6-1.3 Albumin 3.3 g/dL (Normal) Range: 3.2-5.6 Rhnzl-0-Qlkxbykm 0.3 g/dL (Normal) Range: 0.1-0.4 PTH, Intact 26 pg/mL (Normal) Comments: PERFORMED BY: [employer] [facility] [id number] 3:39 Range: 15-65 Sedimentation 6 mm/h (Normal) Comments: PERFORMED BY: [employer] [facility] [id number] 3:39 Rate-Westergren Range: 0-40 Vitamin D, 25-Hydroxy 27.3 ng/mL Comments: PERFORMED BY: [facility] Opjqnq6223 [facility] [id number] 3:39 (Abnormal) Range: 30.0-100.0 Comments: Vitamin D deficiency has been defined by the [place] ofMedicine and an Endocrine Society practice guideline as alevel of serum 25-OH vitamin D less than 20 ng/mL (1,2).The Endocrine Society went on to further define vitamin Dinsufficiency as a level between 21 and 29 ng/mL (2).1. IOM ([place] of Medicine). 2010. Dietary reference intakes for calcium and D. [place]: The National Academies Press.2. Armond MF, [place], Kyler ANDREWS, et al. Evaluation, treatment, and prevention of vitamin D deficiency: an Endocrine Society clinical practice guideline. JCEM. 2010; 96(7):1911-30. 0-Phn-225355:34 CHEST, PA AND LATERAL Radiology Report See Note (Normal) Comments: PROCEDURE: X-RAY CHEST REASON FOR EXAM: Female, 76 years old. Weight loss. TECHNIQUE: PA and lateral views of the chest. COMPARISON: Comparison is made with prior study dated March 01, 2012. FINDINGS: The lungs are hyper expanded, with flattening of the hemidiaphragms.Thereis evidence of calcified old granulomatous disease. There is a milddegreeof reticular nodular interstitial changes at both lung bases. This isunchanged. There is no demonstrated pleural abnormality. Normal heart and pericardium. Normal mediastinum and cathi. Normal visualized pulmonary arteries.Thereis atheroscleroti c calcification of the aortic arch with tortuosity. There is demineralization of the osseous structures. There is evidenceofmultilevel disk space narrowing. Normal visualized ribs, clavicles, andshoul ders. There is no demonstrated abnormality of the visualized soft tissuestructures of the upper abdomen. IMPRESSION:Hyperinflation and bibasilar scarring. There has been essentially nochange since prio r study. Signed:Kit Castillo M.D.June 03, 2012 at 4:01:15 PM [phone] Signed GP/GP If you are the referring physician and would like to consult with theradiologist who pro vided this interpretation, please contact Argenis Grace at [phone]. If this radiologist is unavailable, youwill be directed to another radiologist to assist. If you are a patient with a q uestion regarding this report, pleasecontactyour referring physician directly. Professional Interpretation Provided By: [employer], Phone , These documents contain legally protected and confidential healthinformation intended only for the use of the individual or entity namedabove. If you are not the intended recipient, you are hereby notifiedthatany disclosure, copying, distribution, or other use of these documents isstrictly prohibited. If you have received this information in error,pleasenotify the sender immediately and arrange for the return or destructionofthese documents. Dictated on 06/03/12 1532 by Jonathan AVILA,Tamicaranscribed on 06/03/12 1605 by ITS IMPORTSign by Jonathan AVILA,Kit on 06/03/12 1606 Sign by: Kit Castillo MD 2-Loh-830579:10 SED RATE ERYTHROCYTE ([id number]) Comments: PATIENT NOT FASTINGPERFORMED BY: [facility]eperH[facility] CenterJbofbv2512 [facility] [id number] Sedimentation Rate-Westergren 3 mm/h (Normal) Range: 0-40 2-Dbn-362917:10 TSH ([id number]) Comments: PATIENT NOT FASTINGPERFORMED BY: [facility]eperH[facility] CenterQsbanl0670 [facility] [id number] TSH 2.260 {uIU/mL} (Normal) Range: 0.450-4.500 6-Ajj-017328:10 METABOLIC PANEL, COMPREHENSIVE Comments: PATIENT NOT FASTINGPERFORMED BY: [facility] CenterJhkwpm6171 [facility] [id number] ([id number]) ALT (SGPT) 19 [iU]/L (Normal) Range: 0-32 AST (SGOT) 28 [iU]/L (Normal) Range: 0-40 Alkaline Phosphatase, S 98 [iU]/L (Normal) Range: 25-165 Bilirubin, Total 0.3 mg/dL (Normal) Range: 0.0-1.2 A/G Ratio 1.7 (Normal) Range: 1.1-2.5 Globulin, Total 2.3 g/dL (Normal) Range: 1.5-4.5 Albumin, Serum 3.8 g/dL (Normal) Range: 3.5-4.8 Protein, Total, Serum 6.1 g/dL (Normal) Range: 6.0-8.5 Calcium, Serum 9.2 mg/dL (Normal) Range: 8.6-10.2 Carbon Dioxide, Total 24 mmol/L (Normal) Range: 20-32 Chloride, Serum 90 mmol/L (Abnormal) Range: 97-108 Potassium, Serum 4.1 mmol/L (Normal) Range: 3.5-5.2 BUN/Creatinine Ratio 27 (Abnormal) Range: 11-26 Sodium, Serum 124 mmol/L (Abnormal) Range: 134-144 eGFR If Africn Am 85 mL/min/1.73 (Normal) eGFR If NonAfricn Am 73 mL/min/1.73 (Normal) Creatinine, Serum 0.79 mg/dL (Normal) Range: 0.57-1.00 BUN 21 mg/dL (Normal) Range: 8-27 Glucose, Serum 89 mg/dL (Normal) Range: 65-99 6-Qxg-029635:10 CBC WITH MANUAL DIFF Comments: PATIENT NOT FASTINGPERFORMED BY: [facility]Co[facility] CenterQmymnb1443 [facility] [id number] Information: [id number] ([id number]) Immature Grans (Abs) 0.0 {x10E3/uL} (Normal) Range: 0.0-0.1 Immature Granulocytes 0 % (Normal) Range: 0-2 Baso (Absolute) 0.1 {x10E3/uL} (Normal) Range: 0.0-0.2 Eos (Absolute) 0.1 {x10E3/uL} (Normal) Range: 0.0-0.4 Monocytes(Absolute) 0.7 {x10E3/uL} (Normal) Range: 0.1-1.0 Lymphs (Absolute) 1.4 {x10E3/uL} (Normal) Range: 0.7-4.5 Neutrophils (Absolute) 6.2 {x10E3/uL} (Normal) Range: 1.8-7.8 Basos 1 % (Normal) Range: 0-3 Eos 1 % (Normal) Range: 0-7 Monocytes 9 % (Normal) Range: 4-13 Lymphs 16 % (Normal) Range: 14-46 Neutrophils 73 % (Normal) Range: 40-74 Platelets 275 {x10E3/uL} (Normal) Range: 140-415 RDW 14.8 % (Normal) Range: 12.3-15.4 MCHC 32.1 g/dL (Normal) Range: 31.5-35.7 MCH 28.3 pg (Normal) Range: 26.6-33.0 MCV 88 fL (Normal) Range: 79-97 Hematocrit 44.8 % (Normal) Range: 34.0-46.6 Hemoglobin 14.4 g/dL (Normal) Range: 11.1-15.9 RBC 5.09 {x10E6/uL} (Normal) Range: 3.77-5.28 WBC 8.5 {x10E3/uL} (Normal) Range: 4.0-10.5 6-Cka-541602:04 CHEST, PA AND LATERAL Radiology Report See Note (Normal) Comments: PROCEDURE: X-RAY CHEST REASON FOR EXAM: Female, 76 years old. Cough. TECHNIQUE: Single PA view of the chest. COMPARISON: Chest radiograph dated September 09, 2010. FINDINGS: The lungs are hyper expan ded, with flattening of the hemidiaphragms.Thereis mild reticulonodular interstitial thickening present in both lungs,unchanged since the previous study and likely secondary to pulmonaryfibrosis. There is a nodular area at the right lung base that measuresapproximately 1.6 cm in size. This may represent a pulmonary nodule orpatchy air space consolidation. There is no demonstrated pleuralabnormality . Normal heart and pericardium. There are calcified mediastinal lymph nodes. Normal visualized pulmonaryarteries. There is atherosclerotic calcification of the aortic arch withtortuosity. There is dem ineralization of the osseous structures. Normal visualizedribs, clavicles, and shoulders. There is no demonstrated abnormality of the visualized soft tissuestructures of the upper abdomen. IMPRESSION:1 . Nodular opacity at the right lung base may represent either a noduleorpatchy air space consolidation.2. COPD and mild pulmonary fibrosis. Signed:Toyin Joyce M.D.March 01, 2012 at 5:17:18 PM [phone] Signed AM/AM If you are the referring physician and would like to consult with theradiologist who provided this interpretation, please contact Toyin Joyce M.D. at . If this radiologist is unavailable, you will bedirected to another radiologist to assist. If you are a patient with a question regarding this report, pleasecontactyour referring physician directly. Professional Interpretation Provided By: [employer], Phone , These documents contain legally protected and confidential healthinformation intended only for the use of the individual or entity namedabove. If you are not the intended recipient, you are hereby notifiedthatany disclosure, copying, distribution, or other use of these documents isstrictly prohibited. If you andrews ve received this information in error,pleasenotify the sender immediately and arrange for the return or destructionofthese documents. Dictated on 03/01/12 1421 by Brianna Joyce MDaTranscribed on 2 1721 by ITS IMPORTSign by Toiyn Joyce MD on 03/01/12 1722 Sign by: Toyin Joyce MD 3-Oao-147006:04 RIBS,UNI,MIN 3V,W/PA CHEST Radiology Report See Note (Normal) Comments: PROCEDURE: X-RAY - UNILATERAL RIBS ( LEFT ) REASON FOR EXAM: Female, 76 years old. Left-sided rib pain aftercoughing hard. TECHNIQUE: Two views of the ribs. COMPARISON: Chest radiographs dated the September 09, 2010. FINDINGS:There is demineralization of the ribs. There are linear lucencies withinthe anterior left ninth and 10th ribs that could represent nondisplacedfractures. Mild reticulonodular interstitial thickening in both lungs is unchangedsince the previous study and probably related to pulmonary fibrosis.Thereis no demonstrated pneumothorax. There are multiple compression fractures of t he lower thoracic spine. IMPRESSION:Questionable undisplaced fractures of the anterior left ninth and 10thribs. Signed:Toyin Joyce M.D.March 01, 2012 at 4:43:34 PM [phone] Sig jim AM/AM If you are the referring physician and would like to consult with theradiologist who provided this interpretation, please contact Toyin Joyce M.D. at . If this radiologist is sagrario vailable, you will bedirected to another radiologist to assist. If you are a patient with a question regarding this report, pleasecontactyour referring physician directly. Professional Interpretation Pr ovided By: [employer], Phone , These documents contain legally protected and confidential healthinformation intended only for the use of the individual or entity namedabov e. If you are not the intended recipient, you are hereby notifiedthatany disclosure, copying, distribution, or other use of these documents isstrictly prohibited. If you have received this information i n error,pleasenotify the sender immediately and arrange for the return or destructionofthese documents. Dictated on 03/01/12 1420 by Isiah AVILA,BriannaaTranscribed on 03/01/12 1652 by ITS IMPORTSign by Toyin Barron MD on 03/01/12 1653 Sign by: Toyin Joyce MD 18-Gna-46330:58 ESOPHAGUS ONLY Radiology Report See Note (Normal) Comments: PROCEDURE: X-RAY - ESOPHAGUS (BARIUM SWALLOW) WITH FLUOROSCOPY REASON FOR EXAM: Female, 76 years old. This lesion. TECHNIQUE: Multiple views of the esophagus were obtained followingswallowing of barium. COMPARISON: None. FINDINGS:There is no demonstrated esophageal foreign body. There is nodemonstratedstricture or mucosal abnormality. Normal gastroesophageal junction,without a demonstrated hiatal hernia. The patient ingested a 12 mmtabletof barium without any difficulty. Normal visualized aortic arch and descending thoracic aorta. Normalvisualized pulmonary parenchyma. Normal visualized osseous structures of the thorax. IMPRESSION:Normal plain film x-ray examination (barium swallow) of the esophagus. Signed:Kit Castillo M.D.January 11, 2012 at 10:08:04 AM [phone] ronically Signed GP/GP If you are the referring physician and would like to consult with theradiologist who provided this interpretation, please contact Argenis Grace at [phone]. If this radiologist is unavailable, youwill be directed to another radiologist to assist. If you are a patient with a question regarding this report, pleasecontactyour referring physician directly. Professional Interpretation Provided By: [employer], Phone , These documents contain legally protected and confidential healthinformation intended only for the use of the individual o r entity namedabove. If you are not the intended recipient, you are hereby notifiedthatany disclosure, copying, distribution, or other use of these documents isstrictly prohibited. If you have received this information in error,pleasenotify the sender immediately and arrange for the return or destructionofthese documents. Dictated on 01/11/12 0851 by Jonathan AVILA,Tamicaranscribed on 01/11/12 101 4 by ITS IMPORTSign by Kit Castillo MD on 01/11/12 1015 Sign by: Kit Castillo MD 4-Vgt-738613:51 URINE RAYSA CULTURE (ABA Comments: PATIENT NOT FASTINGPERFORMED BY: [facility]6370 [facility] [id number] Information: SRC:UR COL COUNT) ([id number]) Result 1 MUG (Normal) Comments: Mixed urogenital flora2,000 Colonies/mL Urine Culture,Comprehensive Final report (Normal) 3-Qop-626459:40 Urinalysis, Office (38973) UA - BILIRUBIN Negative (Normal) UA - BLOOD Non Hemolyzed Trace (Normal) UA - GLUCOSE Negative (Normal) UA - KETONES Negative mg/dL (Normal) UA - LEUKOCYTE ESTERASE Negative (Normal) UA - NITRITE Negative (Normal) UA - PH 6.5 (Normal) UA - PROTEIN Trace mg/dL (Normal) UA - SPECIFIC GRAVITY 1.020 (Normal) URINE UROBILINGN ABA TIMED Normal mg/dL (Normal) 24-Nel-46610:59 URINE RAYSA CULTURE-IDENTIFICATN Comments: PATIENT NOT FASTINGPERFORMED BY: [facility] [id number] Information: [id number] ([id number]) Result 1 MUG (Normal) Comments: Mixed urogenital floraGreater than 100,000 colony forming units per mL Urine Culture,Comprehensive Final report (Normal) 50-Hxt-95967:04 Urinalysis, Office (70986) UA - BILIRUBIN Negative (Normal) UA - BLOOD Non Hemolyzed Trace (Normal) UA - GLUCOSE Negative (Normal) UA - KETONES Negative mg/dL (Normal) UA - LEUKOCYTE ESTERASE Trace (Normal) UA - NITRITE Negative (Normal) UA - PH 6.5 (Normal) UA - PROTEIN 30 mg/dL (Normal) UA - SPECIFIC GRAVITY 1.025 (Normal) URINE UROBILINGN ABA TIMED Normal mg/dL (Normal) 1-Ndg-435724:23 URINE RAYSA CULTURE (ABA Comments: PATIENT NOT FASTINGPERFORMED BY: [facility]Co[facility] CenterWtuuqt5488 [facility] [id number] Information: SRC: [id number] COL COUNT) ([id number]) Antimicrobial MIHEAD (Normal) Comments: S = Susceptible; I = Intermediate; R = Resistant P = Positive; N = Negative MICS are expressed in micrograms per mL Antibiotic RSLT#1 RSLT#2 Susceptibility RSLT#3 RSLT#4Amoxicillin/Clavulanic Acid SAmpicillin SCefazolin SCefepime SCeftriaxone SCefuroxime SCephalothin RCiprofloxacin SESBL NErtapenem SGentamicin SImipenem S Levofloxacin SNitrofurantoin SPiperacillin STetracycline STobramycin STrimethoprim/Sulfa S Result 1 Escherichia coli Comments: 800 Colonies/mL (Normal) Urine Final report Culture,Comprehensive (Normal) 4-Qbn-103999:54 Urinalysis, Office (71396) UA - BILIRUBIN Negative (Normal) UA - BLOOD Hemolyzed Small (Normal) UA - GLUCOSE Negative (Normal) UA - KETONES Negative mg/dL (Normal) UA - LEUKOCYTE ESTERASE Negative (Normal) UA - NITRITE Negative (Normal) UA - PH 7.0 (Normal) UA - PROTEIN Negative mg/dL (Normal) UA - SPECIFIC GRAVITY 1.015 (Normal) URINE UROBILINGN ABA TIMED Normal mg/dL (Normal) 10-Tse-83411:00 BILAT SCRN DIGITAL & CAD Radiology Report See Note (Normal) Comments: MAMMOGRAPHY - BILATERAL SCREENING REASON FOR EXAM: Female, 76 years old. Routine annual screeningexamination. PERTINENT HISTORY: TECHNIQUE: Digital examination. Mediolateral oblique ( MLO) andcran iocaudad (CC) views of both breasts were obtained. CAD: CAD wasperformed on this study. COMPARISON: September 19, 2010 FINDINGS:The breast composition is almost entirely fatty replaced. There are no dominan t masses or suspicious calcifications. No other significant abnormalities are identified. IMPRESSION:Stable bilateral screening mammogram. Yearly follow- up recommended. (A) ASSESSMENT CATEGORY:BIRADS Category 1: Negative. A letter regarding these results will besent to the patient by the facility within 30 days. Approximately 10% of breast cancers are not detected by mammography. Anormal mammogr am should not delay biopsy of a clinically suspiciousabnormality. Signed:Cassie Sarmiento M.D.October 08, 2011 at 1:36:05 PM EDTElectronically Signed MV/MV Professional Interpretation Provided By: [facility], , To consult with a radiologist regarding this report, please call our [id number] line @ Dictated on 10/08/11 1202 by Isael ZAYAS MDcribed on 10/08/11 1431 by ITS IMPORTSign by CASSIE ZAYAS MD on 10/08/11 1432 Sign by: CASSIE ZAYAS MD 82-Lhe-062606:42 FECAL OCCULT HGB ASSAY- tubes sent home (40097) FECAL OCCULT HGB ASSAY, QUAL, 1-3 SIMULTANEOU Negative (Normal) 71-Blr-631192:31 URINE RAYSA CULTURE-ABA COL Comments: PATIENT NOT FASTINGPERFORMED BY: [facility] [id number] Information: SRC:UR [id number] COUNT (10310) Result 1 MUG (Normal) Comments: Mixed urogenital floraGreater than 100,000 colony forming units per mL Urine Culture,Comprehensive Final report (Normal) 7-Ysd-773300:06 Urinalysis, Office (44606) UA - BILIRUBIN Negative (Normal) UA - BLOOD Hemolyzed Large (Normal) UA - GLUCOSE Negative (Normal) UA - KETONES Negative mg/dL (Normal) UA - LEUKOCYTE ESTERASE Negative (Normal) UA - NITRITE Negative (Normal) UA - PH 6.0 (Normal) UA - PROTEIN 30 mg/dL (Normal) UA - SPECIFIC GRAVITY 1.025 (Normal) URINE UROBILINGN ABA TIMED Normal mg/dL (Normal) 5-Ibd-492968:19 URINE RAYSA CULTURE (ABA Comments: PATIENT NOT FASTINGPERFORMED BY: [employer] Byopsf2136 [facility] [id number] Information: SRC:UR [id number] COL COUNT) ([id number]) Result 2 MUG (Normal) Comments: Mixed urogenital flora10,000-25,000 colony forming units per mL S = Susceptible; I = Intermediate; R = Resistant P = Positive; N = Negative MICS are expressed in micrograms per mL Antibiotic RSLT#1 RSLT#2 RSLT#3 RSLT#4Amoxicillin/Clavulanic Acid SAmpicillin SCefazolin SCefepime SCeftriaxone SCefuroxime SCephalothin SCiprofloxacin SESBL NErtapenem SGentamicin SImipenem SLevofloxacin SNitrofurantoin SPiperacillin STetracycline STobramyc in STrimethoprim/Sulfa S Result 1 Escherichia coli Comments: 1,000 Colonies/mL (Normal) Urine Final report (Normal) Culture,Keo seg[place]ia 6-Vdb-207526:43 URINE RAYSA CULTURE-ABA COL Comments: PATIENT NOT FASTINGPERFORMED BY: [employer] [facility] Xfyxsz6558 [facility] [id number] Information: SRC:UR [id number] COUNT ([id number]) Result 1 MUG (Normal) Comments: Mixed urogenital flora5,000 Colonies/mL Urine Culture,Comprehensive Final report (Normal) 3-Hmq-208309:45 Urinalysis, Office (57833) UA - BILIRUBIN Negative (Normal) UA - BLOOD Non Hemolyzed Trace (Normal) UA - GLUCOSE Negative (Normal) UA - KETONES Small mg/dL (Normal) UA - LEUKOCYTE ESTERASE Trace (Normal) UA - NITRITE Negative (Normal) UA - PH 7.0 (Normal) UA - PROTEIN 30 mg/dL (Normal) UA - SPECIFIC GRAVITY 1.025 (Normal) URINE UROBILINGN ABA TIMED Normal mg/dL (Normal) 81-Mov-440661:27 URINE RAYSA CULTURE-ABA COL Comments: PATIENT NOT FASTINGPERFORMED BY: [facility] [id number] COUNT ([id number]) Result 1 Escherichia coli (Normal) Comments: 50,000-100,000 colony forming units per mL Result 2 MUG (Normal) Comments: Mixed urogenital flora25,000-50,000 colony forming units per mL S = Susceptible; I = Intermediate; R = Resistant P = Positive; N = Negative MICS are expressed in micrograms per mL Antibiotic RSLT#1 RSLT#2 RSLT#3 RSLT#4Amoxicillin/Clavulanic Acid SAmpicillin SCefazolin SCefepime SCeftriaxone SCefuroxime SCephalothin SCiprofloxacin SESBL NErtapenem SGentamicin SImipenem SLevofloxacin SNitrofurantoin SPiperacillin STetracycline STobramyc in STrimethoprim/Sulfa S Urine Final report (Normal) Culture,Comprehensive 66-Aeh-16638:03 Microscopic Examination Comments: PATIENT WAS FASTINGPERFORMED BY: [employer]6370 [facility] [id number] Bacteria Moderate (Abnormal) Mucus Threads Present (Normal) Epithelial Cells (non renal) 0-10 {/hpf} (Normal) Range: 0 - 10 RBC 0-3 {/hpf} (Normal) Range: 0 - 3 WBC 6-10 {/hpf} (Abnormal) Range: 0 - 5 :03 TSH ([id number]) Comments: PATIENT WAS FASTINGPERFORMED BY: [facility] [id number] TSH 3.100 {uIU/mL} (Normal) Range: 0.450-4.500 :03 URINALYSIS, W/ MICRO Comments: PATIENT WAS FASTINGPERFORMED BY: [facility]6[address] [facility] [id number] Information: [id number] ([id number]) Microscopic Examination See below: (Normal) Nitrite, Urine Positive (Abnormal) Urobilinogen,Semi-Qn 0.2 mg/dL (Normal) Range: 0.0-1.9 Bilirubin Negative (Normal) Occult Blood Negative (Normal) Ketones Negative (Normal) Glucose Negative (Normal) Protein Trace (Normal) WBC Esterase Negative (Normal) Appearance Cloudy (Abnormal) Urine-Color Yellow (Normal) pH 7.0 (Normal) Range: 5.0-7.5 Specific Warren 1.022 (Normal) Range: 1.005-1.030 :03 MICROALBUMIN: CREATININE RATIO Comments: PATIENT WAS FASTINGPERFORMED BY: [facility] [id number] ([id number]) AND ([id number]) Microalb/Creat Ratio 6.2 {mg/g_creat} (Normal) Range: 0.0-30.0 Microalbumin, Urine 9.9 ug/mL (Normal) Range: 0.0-17.0 Creatinine, Urine 160.0 mg/dL (Normal) Range: 15.0-278.0 :03 LIPID PANEL ([id number]) Comments: PATIENT WAS FASTINGPERFORMED BY: [facility] [id number] LDL/HDL Ratio 1.7 {ratio_units} (Normal) Range: 0.0-3.2 LDL Cholesterol Calc 127 mg/dL (Abnormal) Range: 0-99 VLDL Cholesterol Pete 21 mg/dL (Normal) Range: 5-40 HDL Cholesterol 73 mg/dL (Normal) Comments: According to ATP-III Guidelines, HDL-C >59 mg/dL is considered anegative risk factor for CHD. Triglycerides 105 mg/dL (Normal) Range: 0-149 Cholesterol, Total 221 mg/dL (Abnormal) Range: 100-199 8-Vlm-[id number]:35 TSH ([id number]) Comments: PATIENT NOT FASTINGPERFORMED BY: [facility]cv[facility]um9[facility] [id number] TSH 1.330 {uIU/mL} (Normal) Range: 0.450-4.500 2-Yut-269714:35 METABOLIC PANEL, COMPREHENSIVE Comments: PATIENT NOT FASTINGPERFORMED BY: [facility] CenterTmngtp5389 [facility] [id number] ([id number]) Alkaline Phosphatase, S 92 [iU]/L (Normal) Range: 25-165 ALT (SGPT) 18 [iU]/L (Normal) Range: 0-40 AST (SGOT) 25 [iU]/L (Normal) Range: 0-40 Bilirubin, Total 0.2 mg/dL (Normal) Range: 0.0-1.2 A/G Ratio 1.4 (Normal) Range: 1.1-2.5 Albumin, Serum 4.0 g/dL (Normal) Range: 3.5-4.8 Globulin, Total 2.8 g/dL (Normal) Range: 1.5-4.5 Protein, Total, Serum 6.8 g/dL (Normal) Range: 6.0-8.5 Calcium, Serum 9.4 mg/dL (Normal) Range: 8.6-10.2 Carbon Dioxide, Total 24 mmol/L (Normal) Range: 20-32 Chloride, Serum 98 mmol/L (Normal) Range: 97-108 Potassium, Serum 5.1 mmol/L (Normal) Range: 3.5-5.2 BUN/Creatinine Ratio 15 (Normal) Range: 11-26 eGFR If Africn Am 79 mL/min/1.73 (Normal) Comments: Note: A persistent eGFR <60 mL/min/1.73 m2 (3 months or more) mayindicate chronic kidney disease. An eGFR >59 mL/min/1.73 m2 with anelevated urine protein also may indicate chronic kidney disease.Calculated using CKD-EPI formula. Sodium, Serum 138 mmol/L (Normal) Range: 135-145 eGFR If NonAfricn Am 69 mL/min/1.73 (Normal) BUN 13 mg/dL (Normal) Range: 8-27 Creatinine, Serum 0.84 mg/dL (Normal) Range: 0.57-1.00 Glucose, Serum 77 mg/dL (Normal) Range: 65-99 :35 CBC WITH MANUAL DIFF Comments: PATIENT NOT FASTINGPERFORMED BY: [facility] [id number] [facility] [id number] Information: [id number] ([id number]) Immature Grans (Abs) 0.0 {x10E3/uL} (Normal) Range: 0.0-0.1 Immature Granulocytes 0 % (Normal) Range: 0-2 Comments: Please note reference interval change Baso (Absolute) 0.1 {x10E3/uL} (Normal) Range: 0.0-0.2 Eos (Absolute) 0.1 {x10E3/uL} (Normal) Range: 0.0-0.4 Lymphs (Absolute) 1.3 {x10E3/uL} (Normal) Range: 0.7-4.5 Monocytes(Absolute) 1.1 {x10E3/uL} (Abnormal) Range: 0.1-1.0 Neutrophils (Absolute) 4.8 {x10E3/uL} (Normal) Range: 1.8-7.8 Basos 1 % (Normal) Range: 0-3 Eos 1 % (Normal) Range: 0-7 Lymphs 18 % (Normal) Range: 14-46 Monocytes 15 % (Abnormal) Range: 4-13 Neutrophils 65 % (Normal) Range: 40-74 MCHC 33.6 g/dL (Normal) Range: 32.0-36.0 Platelets 271 {x10E3/uL} (Normal) Range: 140-415 RDW 14.2 % (Normal) Range: 11.7-15.0 MCH 30.5 pg (Normal) Range: 27.0-34.0 MCV 91 fL (Normal) Range: 80-98 Hematocrit 43.4 % (Normal) Range: 34.0-44.0 Hemoglobin 14.6 g/dL (Normal) Range: 11.5-15.0 RBC 4.78 {x10E6/uL} (Normal) Range: 3.80-5.10 WBC 7.4 {x10E3/uL} (Normal) Range: 4.0-10.5 06-Ska-[id number]:28 BILAT SCRN DIGITAL & CAD Radiology Report See Note (Normal) Comments: MAMMOGRAPHY - BILATERAL SCREENING INDICATION:Female, 75 years old. Routine annual screening examination. PERTINENT HISTORY:Non-contributory. TECHNIQUE:Digital examination. Mediolateral oblique (MLO) a nd craniocaudad (CC)views of both breasts were obtained. CAD: CAD was performed on thisstudy. COMPARISON:Comparison is made with prior examination from an outside institutiondatedNov2007. FIND INGS:The breast composition is almost entirely fatty replaced. There are no masses or suspicious microcalcifications. No other significant abnormalities are identified. There has been nosignificant gurpreet nge since the prior study. IMPRESSION:Normal bilateral screening mammogram. One year follow-up recommended. (1) ASSESSMENT CATEGORY:BIRADS Category 2: Benign finding(s). A letter regarding these resu ltswill be sent to the patient by the facility within 30 days. Approximately 10% of breast cancers are not detected by mammography. Anormal mammogram should not delay biopsy of a clinically suspiciousa bnormality. Dictated on 09/19/10951 by Sheila Castillo MDeleTranscribed on 09/19/101850 by ITS IMPORTSign by Kit Castillo MD on 09/19/101851 Sign by: Kit Castillo MD ALISA 41 U/L (Normal) Range: 25-115 :56 C-REACTIVE PROT < 2.90 mg/L Range: 0.0-3.0 :56 (Normal) Comments: C-Reactive Protein (CRP) provides useful information for thediagnosis, therapy and monitoring of inflammatory processesand associated diseases. For the evaluation of Relative Riskfor Cardiovascular Dise ase, a High Sensitivity CRP (HSCRP)should be ordered. :56 CBCD,SMEAR DIFF PLT EST SeeNote (Normal) Comments: Result: ADEQUATE RED CELL MORPH SeeNote {NORMAL} (Normal) Comments: Result: NORM C+C EOS 4 % (Normal) Range: 0-5 LYMPH 18 % (Abnormal) Range: 19-41 MONOCYTE 11 % (Abnormal) Range: 0-10 ABSOLUTE NEUT 5.0 3/uL (Normal) Range: 2.0-7.7 CELLS COUNTED 100 (Normal) SEGS 67 % (Normal) Range: 47-70 PLT 281 K/mm3 (Normal) Range: 150-450 MCHC 33.5 g/dL (Normal) Range: 32-36 RDW 14.6 % (Normal) Range: 11.6-14.6 MCH 30.8 pg (Normal) Range: 27.0-32.0 MCV 91.7 fL (Normal) Range: 81-99 HCT 37.2 % (Normal) Range: 37-47 HGB 12.5 g/dL (Normal) Range: 12.0-16.0 RBC 4.05 {M/mm3} (Abnormal) Range: 4.2-5.4 WBC 7.1 K/mm3 (Normal) Range: 4.4-11.0 :56 COMPLETE UA BACTERIA 0 SEEN {/hpf} (Normal) MUCUS, URINE 0 SEEN {/hpf} (Normal) RENAL EPI SeeNote {/hpf} (Normal) Range: 0-5 Comments: Result: 0-5 SEEN SQUAM EPI SeeNote {/hpf} (Normal) Range: 5-10 Comments: Result: 0-5 SEEN LEUK ESTERASE SeeNote (Normal) Comments: Result: NEGATIVE RBC-UA 0 SEEN {/hpf} (Normal) Range: 0-5 WBC 0 SEEN {/hpf} (Normal) Range: 0-5 NITRITE UR SeeNote (Normal) Comments: Result: NEGATIVE OCCULT BLOOD-UR SeeNote (Normal) Comments: Result: NEGATIVE pH UR 6.0 (Normal) Range: 5.0-8.0 PROT DIPSTX SeeNote (Normal) Comments: Result: NEGATIVE SP.GR. DIPSTX 1.010 (Normal) Range: 1.002-1.030 UROBILI 0.2 EU/dl (Normal) Range: 0.2 - 1.0 BILIRUBIN URINE SeeNote (Normal) Comments: Result: NEGATIVE GLUCOSE, UR SeeNote (Normal) Comments: Result: NEGATIVE KETONE UR SeeNote mg/dL (Normal) Comments: Result: NEGATIVE CLARITY CLEAR (Normal) COLOR YELLOW (Normal) :56 ESR SED RATE 11 mm/h (Normal) Range: 0-30 :56 LIPASE 240 U/L (Normal) Range: 70-290 Comments: Please note:LIPASE revised reference range effective 09. :56 LIPID LDL 124 mg/dL (Normal) Range: 0-130 VLDL 18 mg/dL (Normal) Range: 5-40 HDL 74 mg/dL (Normal) Comments: Reference Range HDL <40 mg/dL Low HDL Cholesterol HDL >or= 60 mg/dL High HDL Cholesterol TRIG 89 mg/dL (Normal) Comments: Serum Triglycerides Reference Interval Normal <150 mg/dL Borderline high 150 - 199 mg/dL High 200 - 499 mg/dL Very High > or = 500 mg/dL CHOL 216 mg/dL (Abnormal) Comments: <200 mg/dL Desirable 200-240 mg/dL Borderline >240 mg/dL High Risk :56 MICROALB:CRE UR MALB:CREAT 11.3 {mg/g_CRE} (Normal) MICROALBUMIN,UR 5.9 mg/L (Normal) UR CREAT 52.1 mg/dL (Normal) :56 TSH 4.12 {uIU/mL} (Abnormal) Comments: appt 09/08/10 Range: 0.358-3.74 28-Aug-20100:00 ABDOMEN WITHOUT CONTRAST Radiology Report See Note (Normal) Comments: CLINICAL:Cholecystectomy. Dilated pancreatic duct. Abdominal pain MRI ABDOMEN WITHOUT CONTRAST AND MRCP TECHNIQUE:Standardized fat and water weighted pulse sequences were obtained in [id number] pl anes. COMPARISON:08/27/2010 CT scan FINDINGS:Normal liver size and contour without mass, infiltrating process, orabnormal signal alteration. The gallbladder has been removed. Surgical clips are in the ga llbladderfossa. The common bile duct measures 1.3 cm, consistent with status postcholecystectomy and the patient's age. There is no dilatation of theintrahepatic biliary ducts. There are no filling d efects in the biliaryducts. Normal kathryn hepatis. Normal pancreas without enlargement or mass. There are no focal masses.The pancreatic duct is normal, measuring less than 3-mm. Normal splenic size a nd contour. There are no masses. Normal adrenal glands. Normal right kidney size and contour. There are no masses, cysts orhydronephrosis. Normal perinephric space. Normal left kidney size and contour . There is a subcentimeter corticalcyst in the midpole of the left kidney. Normal perinephric space. Normal caliber of the abdominal aorta. Normal retroperitoneum without abnormally enlarged lymphaden opathy orinflammation. Normal mesentery without inflammation or adenopathy. There is no ascites. Normal abdominal wall structures with no demonstrated hernias. IMPRESSION:Postcholecystectomy dilatation of the common bile duct. No dilatation ofthe intrahepatic biliary ducts. Normal pancreatic duct.Subcentimeter left renal cyst. Dictated on 08/28/10 1442 by Tomy Trimble MDieTranscribed on 09/03 1601 by ITS IMPORTSign by Tamara Trimble MD on 08/28/10 160 Sign by: Tamara Trimble MD 27-Aug-20100:00 ABDOMEN W/WO IV CONTRAST Radiology Report See Note (Normal) Comments: CLINICAL:Female, 74 years old. Epigastric and abdominal pain. Follow-up from chestCT. CT ABDOMEN AND PELVIS WITH AND WITHOUT CONTRAST TECHNIQUE: Axial images were obtained through the pancreas withoutin travenous contrast enhancement. Following the intravenousadministrationof 100 mL of Isovue-300, arterial phase images were obtained through thepancreas. Venous phase images were obtained from the lung b ases throughthepubic bones. COMPARISON:August 06, 2005. FINDINGS:There is a small to moderate-sized hiatal hernia. There is mild to moderate dilatation of intrahepatic ducts. Proximally,adjacent to the l iver, the common bile duct measures 2 cm. Distally, atthelevel of the pancreatic head, the common bile duct measures 11 mm. Thesemeasurements are significantly increased from the previous examination.Th egallbladder is surgically absent and was also absent the time of theprevious examination. It is possible the increase in size representscombination of post- cholecystectomy change and age related ectasi a.However, MRCP is suggested to further evaluate the ducts, if clinicallyindicated. There is no lesion identified in the pancreas. Note is madethatthere is no contrast in the duodenal C-loop. However, t he head of thepancreas appears unchanged compared to the study of August 06, 2005 exceptfor increase in size of the common bile duct. There is calcification in the right adrenal. This is most likelysecon daryto previous hemorrhage, old infection or trauma would could also beconsidered. The left adrenal is within normal limits. As described on theCT scan of the chest, there are small hypoechoic areas wit hin thekidneys.The ureters are normal. Normal small intestine. There is mixed with diverticulosis, most markeddistally. There is no evidence of diverticulitis at this time.There is an apparent area of i rregularity in the proximal right cecum.Thismay be due to incomplete distention. If further evaluation of thisfindingas reported clinically, endoscopy would be recommended. The appendix wasnot seen. The re is no demonstrated peritoneal fluid. Normal abdominal aorta. Normal inferior vena cava. Normalretroperitoneum. Normal urinary bladder. There is no pelvic mass lesion orlymphadenopathy.There is no pel chio fluid. Normal abdominal wall. There are diffuse degenerative changes of thevisualized lumbar spine. IMPRESSION:There is increased caliber of the common bile duct in the pancreatic ductof uncertain c ause. If further evaluation of this finding is warrantedclinically, an MRCP could be performed. There is severe diverticulosis, which is most marked distally. There is apparent irregularity of the proxi mal cecum. This may be due toincomplete distention. If indicated clinically, endoscopy or barium enemacould be performed. Dictated on 08/27/10 1211 by AREILLA MATTHEWS MDTranscribed on 08/27/10 1633 by ITS IMPORTSign by ARIELLA MATTHEWS MD on 08/27/10 1634 Sign by: ARIELLA MATTHEWS MD 27-Aug-20100:00 PELVIS WITH IV CONTRAST Radiology Report See Note (Normal) Comments: CLINICAL:Female, 74 years old. Epigastric and abdominal pain. Follow-up from chestCT. CT ABDOMEN AND PELVIS WITH AND WITHOUT CONTRAST TECHNIQUE: Axial images were obtained through the pancreas withoutin travenous contrast enhancement. Following the intravenousadministrationof 100 mL of Isovue-300, arterial phase images were obtained through thepancreas. Venous phase images were obtained from the lung b ases throughthepubic bones. COMPARISON:August 06, 2005. FINDINGS:There is a small to moderate-sized hiatal hernia. There is mild to moderate dilatation of intrahepatic ducts. Proximally,adjacent to the l iver, the common bile duct measures 2 cm. Distally, atthelevel of the pancreatic head, the common bile duct measures 11 mm. Thesemeasurements are significantly increased from the previous examination.Th egallbladder is surgically absent and was also absent the time of theprevious examination. It is possible the increase in size representscombination of post- cholecystectomy change and age related ectasi a.However, MRCP is suggested to further evaluate the ducts, if clinicallyindicated. There is no lesion identified in the pancreas. Note is madethatthere is no contrast in the duodenal C-loop. However, t he head of thepancreas appears unchanged compared to the study of August 06, 2005 exceptfor increase in size of the common bile duct. There is calcification in the right adrenal. This is most likelysecon daryto previous hemorrhage, old infection or trauma would could also beconsidered. The left adrenal is within normal limits. As described on theCT scan of the chest, there are small hypoechoic areas wit hin thekidneys.The ureters are normal. Normal small intestine. There is mixed with diverticulosis, most markeddistally. There is no evidence of diverticulitis at this time.There is an apparent area of i rregularity in the proximal right cecum.Thismay be due to incomplete distention. If further evaluation of thisfindingas reported clinically, endoscopy would be recommended. The appendix wasnot seen. The re is no demonstrated peritoneal fluid. Normal abdominal aorta. Normal inferior vena cava. Normalretroperitoneum. Normal urinary bladder. There is no pelvic mass lesion orlymphadenopathy.There is no pel chio fluid. Normal abdominal wall. There are diffuse degenerative changes of thevisualized lumbar spine. IMPRESSION:There is increased caliber of the common bile duct in the pancreatic ductof uncertain c ause. If further evaluation of this finding is warrantedclinically, an MRCP could be performed. There is severe diverticulosis, which is most marked distally. There is apparent irregularity of the proxi mal cecum. This may be due toincomplete distention. If indicated clinically, endoscopy or barium enemacould be performed. Dictated on 08/27/10 1211 by BYRON MD,PAMELATranscribed on 08/27/10 1636 by ITS IMPORTSign by ARIELLA MATTHEWS MD on 08/27/10 1637 Sign by: BYRON AVILAARIELLA 26-Aug-20109:02 CHEST WITH CONTRAST Radiology Report See Note (Normal) Comments: CLINICAL:Female, 74 years old. Follow up abnormal chest x-ray. Recent pneumonia.Short of breath. Prior smoker - quit May 2010 CT CHEST WITH CONTRAST TECHNIQUE:High resolution transaxial imaging was performed following intravenousadministration of 100 mL of Isovue 300 contrast material. COMPARISON:August 06, 2005 FINDINGS: The trachea and visualized bronchi are normal. Normal pulmonary parenchyma i nfiltrates or nodules are identified. Thereisapical pleural thickening. There are scattered small, angular areas ofpleural thickening scattered throughout both hemithoraces. The number ofthese small are as of pleural thickening has increased since theexaminationApr2005. However, they are very small and angular and most likelyrepresent pleural scar. Normal heart and pericardium. Normal mediastinu m. Normal hilar regions. Normal enhancement of the pulmonary arteries. There is atheroscleroticcalcification of the aortic arch with tortuosity. The ascending thoracicaorta is mildly increased in calibe r at 4.2 x 3.9 cm. There are degenerative changes of thoracic spine. Arising from the right kidney is a low attenuation structure measuring 15x5 mm in size. The CT attenuation coefficient is above the r patrice of fluid.However, on the previous examination there was a 6 cm cyst identified.Thefinding seen on the current study most likely represents a small residualhemorrhagic cyst. There are two 5-mm cysts in the left kidney. There is anon obstructing 3 mm calculus. The pancreatic duct is dilated at 3 to 4 mm. The common bile dzhquviowmaq83 mm distally and [address] of the abdomen is recommend ed tofurther evaluate these dilated ducts. The gallbladder is surgicallyabsent. IMPRESSION:There is no acute pulmonary abnormality identified. There is scattered small, angular, areas of pleural thicken ing presentbilaterally. These findings are most compatible with pleural scar. There is mild dilatation of the ascending thoracic aorta which measures4.2x 3.9 centimeters There is dilatation of the pancr eatic and common bile ducts. CT scan oftheabdomen and pelvis is recommended. N.B. : The above information has been verbally conveyed by Ariella Matthews M.D. to Maria Del Rosario, Referring Physician - tank pumper panelboard, on 08/26/2010 17:27:03(ET). Dictated on 08/26/10 0919 by ARIELLA MATTHEWS MDTranscribed on 08/27/10 0826 by ITS IMPORTSign by ARIELLA MATTHEWS MD on 08/27/10 08 Sign by: ARIELLA MATTHEWS MD [id number]-Dhf-[id number]:02 CHEST, PA AND LATERAL Radiology Report See Note (Normal) Comments: CLINICAL:Female, 74 years old. Shortness of breath. Bacterial pneumonia X-RAY EXAMINATION - CHEST TECHNIQUE:PA and lateral views of the chest. COMPARISON:06/15/10 FINDINGS: The lungs are hyper expande d, with flattening of the hemidiaphragms.Airspace opacity in the right lower lung is markedly decreased, there isnow only a 1.6-cm nodular focus of air space opacity. There is nodemonstrated pleural ab normality. The heart is normal in size and morphology. Normal mediastinum and cathi. Normal visualized pulmonary arteries. There is atherosclerotictortuosityof the aortic arch and descending thoracic ao rta. There is demineralization of the osseous structures. There are diffusedegenerative changes of the visualized thoracic spine. IMPRESSION:Persistent 1.6 centimeter nodular focus of airspace opacity onlydefinitelyseen on the frontal view in the right lower lung, recommend a CT scan ofthe thorax in this somewhat emphysematous individual as a bronchogeniccarcinoma is possible here. Dictated on 16/03 1004 by MONCHO COOPER MDTranscribed on 08/14/102199 by ITS IMPORTSign by MONCHO COOPER MD on 08/14/102200 Sign by: MONCHO COOPER MD 06-Ojl-373246:54 Urinalysis, Office ([id number]) UA - BILIRUBIN Negative (Normal) UA - BLOOD Hemolyzed Trace (Normal) UA - GLUCOSE Negative (Normal) UA - KETONES Negative mg/dL (Normal) UA - LEUKOCYTE ESTERASE Negative (Normal) UA - NITRITE Negative (Normal) UA - PH 7.0 (Normal) UA - PROTEIN Negative mg/dL (Normal) UA - SPECIFIC GRAVITY 1.010 (Normal) URINE UROBILINGN ABA TIMED Normal mg/dL (Normal) 57-Zgd-027907:30 MYOCARD PERF STRESS/REST MULT Radiology Report See Note (Normal) Comments: REGADENOSON NUCLEAR STUDY HISTORYThis is a 74-year-old female who presents with chest pain. TECHNIQUEThe patient was injected with 10.8 mCi Tc99m Cardiolite and resting SPECTimages were acquired in the horizontal long, vertical long and short axisviews. The patient underwent regadenoson infusion and was injected with0.4 mg over 10 seconds. Twenty seconds post regadenoson the patient wasinjected with 33 mCi Tc99m Cardiolite and post regadenoson SPECT imageswere acquired in the horizontal long, vertical long and short axis views. INTERPRETATIONRest images demonstrate a very subtle decrease in inferi or/inferoseptalactivity which is again demonstrated with regadenoson infusion withbrightening at end systole and normal wall motion suggestive ofdiaphragmatic attenuation. The remainder of the left v entricle appearsto be well perfused both at rest and with regadenoson. There are nosignificant fixed defects to suggest infarct. There are no reversibledefects developing with regadenoson to suggest i nducible ischemia.Calculated ejection fraction by gated SPECT imaging was 69% with normalwall motion and brightening in all segments. CONCLUSION1. Subtle decrease in inferior/inferoseptal activity at r est and withregadenoson consistent with diaphragmatic attenuation.2. No significant fixed defect to suggest infarct.3. No reversible defects developing with regadenoson to suggestinducible ischemia. Dictated on 03/14/10 1449 by Devora Ariasranscribed on 03/14/10 1530 by Katrin GALARZA by Saman Arias on 04/03/10 9849 Sign by: Saman Arias [id number]-Ujy-800015:30 NUCLEAR MEDICINE REPORT Radiology Report See Note (Normal) Comments: REGADENOSON NUCLEAR STUDY HISTORYThis is a 74-year-old female who presents with chest pain. TECHNIQUEThe patient was injected with 10.8 mCi Tc99m Cardiolite and resting SPECTimages were acquired in the horizontal long, vertical long and short axisviews. The patient underwent regadenoson infusion and was injected with0.4 mg over 10 seconds. Twenty seconds post regadenoson the patient wasinjected with 33 mCi Tc99m Cardiolite and post regadenoson SPECT imageswere acquired in the horizontal long, vertical long and short axis views. INTERPRETATIONRest images demonstrate a very subtle decrease in inferi or/inferoseptalactivity which is again demonstrated with regadenoson infusion withbrightening at end systole and normal wall motion suggestive ofdiaphragmatic attenuation. The remainder of the left v entricle appearsto be well perfused both at rest and with regadenoson. There are nosignificant fixed defects to suggest infarct. There are no reversibledefects developing with regadenoson to suggest i nducible ischemia.Calculated ejection fraction by gated SPECT imaging was 69% with normalwall motion and brightening in all segments. CONCLUSION1. Subtle decrease in inferior/inferoseptal activity at r est and withregadenoson consistent with diaphragmatic attenuation.2. No significant fixed defect to suggest infarct.3. No reversible defects developing with regadenoson to suggestinducible ischemia. Dictated on 03/14/10 1449 by Devora Ariasranscribed on 03/14/10 1530 by Katrin GALARZA by Saman Arias on 03/17/10 1739 Sign by: Saman Arias [id number]-Pmx-[id number]:35 SERUM CRE & GFR Comments: MRI AT 1330 CREAT,SERUM 0.8 mg/dL (Normal) Range: 0.6-1.0 14-Ebv-43786:00 BRAIN W/WO CONTRAST Radiology Report See Note (Normal) Comments: CLINICAL:Female, 74 years old. Abnormal gait. MRI BRAIN WITH AND WITHOUT CONTRAST TECHNIQUE:Standardized multiplanar fat and water weighted pulse sequences wereobtained. 16 ml of Magnevist contrast ma terial was administeredintravenously for the contrast portion of the examination. COMPARISON:CT brain without and with contrast 06/11/2005. FINDINGS:There is mild cerebral atrophy with widening of the e xtra-axial spacesandventricular dilatation. There are multiple white matterhyperintensities,distributed throughout the deep white matter tracts of the cerebralhemispheres, consistent with moderate brewing technician kayy white matter ischemicchanges. There is no evidence for recent intracranial ischemia or othercause of cytotoxic edema on diffusion weighted imaging (DWI). Normal bilateral basal ganglia. Normal tammie lami. Normal visualized major intracranial vascular flow voids suggestingpatencyby spin echo criteria. Tortuosity of the vertebrobasilar system.Slightlyectatic appearance of the right parasellar regulatory affairs internship al carotid artery. There is no enhancing intra-axial or extra-axial abnormality. There is no extra-axial fluid accumulation. 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 Normal infundibular stalk, hypothalamus, and opticchiasm, within the constraints of a routine brain study. Tiny pineal cy st measuring approximately 5 mm in maximal diameter.Normaltectal plate. Normal midbrain, sabino and medulla. Normal cerebellum. Normal basal cisterns. Normal bilateral temporal bones. Normal visualized bilateral internalauditory canal structures. Right ocular lens implant, with otherwise normal visualized orbitalcontents. Normal visualized paranasal sinuses. Normal calvarium and skull base. Normal vi sualized soft tissuestructures.Mild degenerative changes of the visualized upper cervical spine. IMPRESSION:Mild cervical atrophy compatible with age. Moderate chronic microvascular ischemic changes inv olving thesupratentorial white matter, without demonstrated recent completedischemicevent or other acute intracranial process. Incidental 5-mm pineal cyst. Empty sella. Dictated on 03/12/101328 by JOSY LOMELI RTranscribed on 03/12/101328 by STEPHANIE PONCESimichelle by JOSY CASTRO on 03/13/10 1607 Sign by: JOSY CASTRO :40 CBCD,SMEAR DIFF ABSOLUTE NEUT 6.0 3/uL (Normal) Range: 2.0-7.7 CELLS COUNTED 100 (Normal) EOS 1 % (Normal) Range: 0-5 LYMPH 27 % (Normal) Range: 19-41 MCHC 33.7 g/dL (Normal) Range: 32-36 MONOCYTE 7 % (Normal) Range: 0-10 PLT 271 K/mm3 (Normal) Range: 150-450 PLT EST SeeNote (Normal) Comments: Result: ADEQUATE RDW 14.6 % (Normal) Range: 11.6-14.6 RED CELL MORPH SeeNote {NORMAL} (Normal) Comments: Result: NORM C+C SEGS 65 % (Normal) Range: 47-70 HCT 43.7 % (Normal) Range: 37-47 HGB 14.7 g/dL (Normal) Range: 12.0-16.0 MCH 31.5 pg (Normal) Range: 27.0-32.0 MCV 93.5 fL (Normal) Range: 81-99 RBC 4.67 {M/mm3} (Normal) Range: 4.2-5.4 WBC 8.7 K/mm3 (Normal) Range: 4.4-11.0 :40 COMP METABOLIC CO2 29.0 mmol/L (Normal) Range: 21.0-32.0 GAP 5 (Normal) Range: 5-15 A/G 0.8 {RATIO} (Abnormal) Range: 0.9-2.4 ALB 3.2 g/dL (Abnormal) Range: 3.4-5.0 ALK P 86 U/L (Normal) Range: 50-136 ALT 32 U/L (Normal) Range: 12-78 AST 28 U/L (Normal) Range: 15-37 BUN/CRE 12.2 {RATIO} (Normal) Range: 10-20 CA 8.7 mg/dL (Normal) Range: 8.5-10.1 CL 103 mmol/L (Normal) Range: 98-107 CREAT,SERUM 0.9 mg/dL (Normal) Range: 0.6-1.0 GLOB 3.8 g/dL (Normal) Range: 2.7-4.2 K 4.3 mmol/L (Normal) Range: 3.5-5.1 NA 137 mmol/L (Normal) Range: 136-145 T BILI 0.40 mg/dL (Normal) Range: 0.00-1.00 T PROT 7.0 g/dL (Normal) Range: 6.4-8.2 BUN 11 mg/dL (Normal) Range: 7-18 GLU 86 mg/dL (Normal) Range: 70-110 :40 COMPLETE UA BACTERIA 3+ {/hpf} (Normal) LEUK ESTERASE SeeNote (Normal) Comments: Result: NEGATIVE MUCUS, URINE 0 SEEN {/hpf} (Normal) RBC-UA SeeNote {/hpf} (Normal) Range: 0-5 Comments: Result: 0-5 SEEN SQUAM EPI SeeNote {/hpf} (Normal) Range: 5-10 Comments: Result: 0-5 SEEN TRIPLE PHOS 2+ {/hpf} (Normal) WBC SeeNote {/hpf} (Normal) Range: 0-5 Comments: Result: 0-5 SEEN BILIRUBIN URINE SeeNote (Normal) Comments: Result: NEGATIVE KETONE UR SeeNote mg/dL (Normal) Comments: Result: NEGATIVE NITRITE UR SeeNote (Normal) Comments: Result: NEGATIVE OCCULT BLOOD-UR SeeNote (Abnormal) Comments: Result: TRACE-LYSED pH UR 7.0 (Normal) Range: 5.0-8.0 PROT CONF. 5 mg/dL (Normal) Range: 0-5 PROT DIPSTX 1+ (Abnormal) SP.GR. DIPSTX >=1.030 (Normal) Range: 1.002-1.030 UROBILI 0.2 EU/dl (Normal) Range: 0.2 - 1.0 CLARITY CLOUDY (Normal) COLOR YELLOW (Normal) GLUCOSE, UR SeeNote (Normal) Comments: Result: NEGATIVE :40 CULTURE, URINE URINE CULTURE See Note {CFU/mL} (Normal) Comments: COLONY COUNT >100,000 :40 LIPID CHOL 205 mg/dL (Abnormal) Comments: <200 mg/dL Rzrpnlced722-121 mg/dL Borderline>240 mg/dL High Risk HDL 56 mg/dL (Normal) Comments: Reference RangeHDL <40 mg/dL Low HDL CholesterolHDL >or= 60 mg/dL High HDL Cholesterol LDL 123 mg/dL (Normal) Range: 0-130 TRIG 129 mg/dL (Normal) Comments: Serum Triglycerides Reference IntervalNormal <150 mg/dLBorderline high 150 - 199 mg/dLHigh 200 - 499 mg/ dLVery High > or = 500 mg/dL VLDL 26 mg/dL (Normal) Range: 5-40 :40 MICROALB:CRE UR MALB:CREAT 15.4 {mg/g_CRE} (Normal) MICROALBUMIN,UR 30.6 mg/L (Normal) UR CREAT 198.1 mg/dL (Normal) :40 TSH 2.47 {uIU/mL} (Normal) Range: 0.358-3.74 :06 CBCD ABSOLUTE NEUT 6.8 3/uL (Normal) Range: 2.0-7.7 BASO% 0.4 % (Normal) Range: 0-1 EO% 1.5 % (Normal) Range: 0-5 MONO% 11.8 % (Abnormal) Range: 0-10 HCT 41.7 % (Normal) Range: 37-47 HGB 14.2 g/dL (Normal) Range: 12.0-16.0 LY% 14.1 % (Abnormal) Range: 19-41 MCH 31.2 pg (Normal) Range: 27.0-32.0 MCHC 34.2 g/dL (Normal) Range: 32-36 MCV 91.4 fL (Normal) Range: 81-99 MPV 7.1 fL (Normal) Range: 6.5-12.0 NEUT% 72.2 % (Abnormal) Range: 47-70 PLT 250 K/mm3 (Normal) Range: 150-450 RBC 4.56 {M/mm3} (Normal) Range: 4.2-5.4 RDW 14.4 % (Normal) Range: 11.6-14.6 WBC 9.4 K/mm3 (Normal) Range: 4.4-11.0 :06 COMP METABOLIC A/G 1.0 {RATIO} (Normal) Range: 0.9-2.4 ALK P 74 U/L (Normal) Range: 50-136 ALT 25 U/L (Normal) Range: 12-78 AST 22 U/L (Normal) Range: 15-37 CA 9.1 mg/dL (Normal) Range: 8.5-10.1 CL 98 mmol/L (Normal) Range: 98-107 CO2 28.0 mmol/L (Normal) Range: 21.0-32.0 GAP 6 (Normal) Range: 5-15 GLOB 3.4 g/dL (Normal) Range: 2.7-4.2 K 4.0 mmol/L (Normal) Range: 3.5-5.1 NA 132 mmol/L (Abnormal) Range: 136-145 T BILI 0.40 mg/dL (Normal) Range: 0.00-1.00 ALB 3.3 g/dL (Abnormal) Range: 3.4-5.0 BUN 16 mg/dL (Normal) Range: 7-18 BUN/CRE 17.8 {RATIO} (Normal) Range: 10-20 CREAT,SERUM 0.9 mg/dL (Normal) Range: 0.6-1.0 GLU 84 mg/dL (Normal) Range: 70-110 T PROT 6.7 g/dL (Normal) Range: 6.4-8.2 22-Cdi-982585:36 Microscopic Examination Comments: PATIENT NOT FASTINGPERFORMED BY: [facility] [id number] Bacteria Few (Normal) Epithelial Cells (non renal) 0-10 {/hpf} (Normal) Range: 0 - 10 RBC None seen {/hpf} (Normal) Range: 0 - 3 WBC 0-5 {/hpf} (Normal) Range: 0 - 5 30-Scz-161015:17 Urinalysis, Office ([id number]) UA - LEUKOCYTE ESTERASE Negative (Normal) UA - NITRITE Negative (Normal) URINE UROBILINGN ABA TIMED Normal mg/dL (Normal) UA - PROTEIN Negative mg/dL (Normal) UA - PH 6.0 (Normal) UA - BLOOD Negative (Normal) UA - SPECIFIC GRAVITY 1.005 (Normal) UA - KETONES Negative mg/dL (Normal) UA - BILIRUBIN Negative (Normal) UA - GLUCOSE Negative (Normal) 70-Cmo-179470:36 URINE RAYSA CULTURE-ABA COL Comments: PATIENT NOT FASTINGPERFORMED BY: [id number] [place] [facility] [id number] COUNT ([id number]) Result 1 MUG (Normal) Comments: Mixed urogenital flora1,000 Colonies/mL Urine Culture,Comprehensive Final report (Normal) 09-Hmp-159263:36 URINALYSIS, W/ MICRO Comments: PATIENT NOT FASTINGPERFORMED BY: [employer] [facility] [id number] Information: SRC:UR ADD [id number] ([id number]) Microscopic Examination MICRON (Normal) Comments: Microscopic follows if indicated. Microscopic Examination See below: (Normal) Nitrite, Urine Negative (Normal) Bilirubin Negative (Normal) Urobilinogen,Semi-Qn 0.2 mg/dL (Normal) Range: 0.0-1.9 Glucose Negative (Normal) Ketones Negative (Normal) Occult Blood Negative (Normal) Protein Negative (Normal) Appearance Clear (Normal) pH 7.0 (Normal) Range: 5.0-7.5 Urine-Color Yellow (Normal) WBC Esterase Negative (Normal) Specific Warren 1.012 (Normal) Range: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 Estate Agent/Broker Letter Indication: Lupus Hypertension, renal disease : HTN/CAD Red Flags Indication: Hypertension, renal disease Hypercholesteremia : Cholesterol mgmt Indication: Hypercholesteremia Hypertension, renal disease : Eprescribed prescriptions (G8553) Indication: Hypertension, renal disease COPD, moderate : Follow up in 2- 3 weeks for medicare physcial Indication: COPD, moderate COPD, moderate : Follow up in 4 months Indication: COPD, moderate ERYTHEMATOSUS, LUPUS : Reviewed Lab Indication: ERYTHEMATOSUS, LUPUS ERYTHEMATOSUS, LUPUS : Reviewed Real Estate Agent/Broker Letter Indication: ERYTHEMATOSUS, LUPUS Hypertension, renal disease : Reviewed Lab Indication: Hypertension, renal disease Hypertension, renal disease : HTN/CAD Red Flags Indication: Hypertension, renal disease Hypercholesteremia : Cholesterol mgmt Indication: Hypercholesteremia COPD, moderate : Chronic Obstructive Pulmonary Disease (COPD) *: bronchitis Indication: COPD, moderate Chest pain : Reviewed Lab Indication: Chest pain DISPLACEMENT OF LUMBAR INTERVERTEBRAL DISC WITHOUT MYELOPATHY : Reviewed Diagnostic Tests 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 : Reviewed Real Estate Agent/Broker Letter 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 Hypercholesteremia : Follow up in 3 months gen med Indication: Hypercholesteremia Chronic kidney disease (CKD), stage 2 (mild) : Eprescribed prescriptions (G8553) Indication: Chronic kidney disease (CKD), 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), stage 2 (mild) : consultation letter Indication: Chronic kidney disease (CKD), stage 2 (mild) COPD, moderate : Reviewed Real Estate Agent/Broker Letter Indication: COPD, moderate Hypertension, renal disease : Continue Current Prescription(s) Indication: Hypertension, renal disease Hypertension, renal disease : HTN/CAD Red Flags Indication: Hypertension, renal disease Hypercholesteremia : Cholesterol mgmt Indication: Hypercholesteremia Anemia, unspecified : Reviewed Lab Indication: Anemia, unspecified Anemia, unspecified : Reviewed Diagnostic Tests Indication: Anemia, unspecified Anemia, unspecified : Reviewed Real Estate Agent/Broker Letter Indication: Anemia, unspecified COPD, moderate : Reviewed Real Estate Agent/Broker Letter: dr ascencio Indication: COPD, moderate COPD, moderate : Follow up in 3 months Indication: COPD, moderate Osteopenia : *Calcium Education (KF) Indication: Osteopenia Chronic kidney disease (CKD), stage 2 (mild) : Reviewed Lab Indication: Chronic kidney disease (CKD), stage 2 (mild) Hypertension, renal disease : Continue Current Prescription(s) Indication: Hypertension, renal disease Hypertension, renal disease : HTN/CAD Red Flags Indication: Hypertension, renal disease Hypercholesteremia : Cholesterol mgmt Indication: Hypercholesteremia Anemia, unspecified : Follow up : for lab results only end of this week or next Indication: Anemia, unspecified Anemia, unspecified : Follow up 1-2 weeks for gen med Indication: Anemia, unspecified Anemia, unspecified : Reviewed Real Estate Agent/Broker Letter Indication: Anemia, unspecified Anemia, unspecified : Anemia: diagnosis and treatment Indication: Anemia, unspecified Mitral valve failure : Reviewed Real Estate Agent/Broker Letter Indication: Mitral valve failure Encounter for Medicare annual wellness exam : Follow up in 3 weeks- overall ck prior to surgery Indication: Encounter for Medicare annual wellness exam Encounter for Medicare annual wellness exam : *Colon Cancer Screening Indication: Encounter for Medicare annual wellness exam Dysfunctional grieving : Continue Current Prescription(s) Indication: Dysfunctional grieving Encounter for Medicare annual wellness exam : fall reduction handout Indication: Encounter for Medicare annual wellness exam Encounter for Medicare annual wellness exam : elderly packet given Indication: Encounter for Medicare annual wellness exam Encounter for Medicare annual wellness exam : advance planning information Indication: Encounter for Medicare annual wellness exam Hypertension, renal disease : Follow up 1-2 weeks for medicare physical Indication: Hypertension, renal disease Coronary Artery Disease : Reviewed Lab Indication: Coronary Artery Disease Coronary Artery Disease : Reviewed Diagnostic Tests Indication: Coronary Artery Disease Coronary Artery Disease : Reviewed Real Estate Agent/Broker Letter Indication: Coronary Artery Disease COPD, moderate : Continue Current Prescription(s) Indication: COPD, moderate Hypercholesteremia : Reviewed Lab Indication: Hypercholesteremia Chronic kidney disease (CKD), stage 2 (mild) : Reviewed Real Estate Agent/Broker Letter Indication: Chronic kidney disease (CKD), stage 2 (mild) Hypertension, renal disease : Follow up in 3 months Indication: Hypertension, renal disease Hypertension, renal disease : Continue Current Prescription(s) Indication: Hypertension, renal disease ERYTHEMATOSUS, LUPUS : Reviewed Real Estate Agent/Broker Letter Indication: ERYTHEMATOSUS, LUPUS Hypertension, renal disease : HTN/CAD Red Flags Indication: Hypertension, renal disease Hypercholesteremia : Cholesterol mgmt Indication: Hypercholesteremia Need for prophylactic vaccination and inoculation against influenza : Flu (Influenza) *: flu Indication: Need for prophylactic vaccination and inoculation against influenza Need for prophylactic vaccination and inoculation against influenza : Flu (Influenza) *: flu shot Indication: Need for prophylactic vaccination and inoculation against influenza Hypertension, renal disease : Follow up in 2 months: do chronic medical follow up Indication: Hypertension, renal disease Hypertension, renal disease : HTN/CAD Red Flags Indication: Hypertension, renal disease Renal cyst (Renamed from Kidney cysts) : Reviewed Real Estate Agent/Broker Letter Indication: Renal cyst (Renamed from Kidney cysts) Hypertension, renal disease : Allergies: allergen Indication: Hypertension, renal disease Hypertension, renal disease : Follow up in 2-3 weeks Indication: Hypertension, renal disease Hypertension, renal disease : Reviewed Lab Indication: Hypertension, renal disease Hypertension, renal disease : High Blood Pressure (Essential Hypertension) *: blood pressure problems Indication: Hypertension, renal disease Hypertension, renal disease : Reviewed Real Estate Agent/Broker Letter Indication: Hypertension, renal disease Hypertension, renal disease : Reviewed Lab Indication: Hypertension, renal disease Hypertension, renal disease : Follow up in 1 weeks Indication: Hypertension, renal disease Hypertension, renal disease : *Avoid NSAIDS Indication: Hypertension, renal disease COPD, moderate : Follow up in 4 months Indication: COPD, moderate Hypercholesteremia : Cholesterol mgmt Indication: Hypercholesteremia Osteopenia : Reviewed Diagnostic Tests Indication: Osteopenia ERYTHEMATOSUS, LUPUS : Reviewed Real Estate Agent/Broker Letter Indication: ERYTHEMATOSUS, LUPUS Hypertension, renal disease : HTN/CAD Red Flags Indication: Hypertension, renal disease Weight loss : Reviewed Lab Indication: Weight loss Weight loss : Reviewed Diagnostic Tests Indication: Weight loss Weight loss : Follow up in 2 weeks Indication: Weight loss Unspecified bacterial pneumonia : Reviewed Diagnostic Tests Indication: Unspecified bacterial pneumonia Cough : Cough: pneumonia Indication: Cough Unspecified bacterial pneumonia : Follow up in wednesday Indication: Unspecified bacterial pneumonia Unspecified bacterial pneumonia : Continue Current Prescription(s) Indication: Unspecified bacterial pneumonia Rib pain : Reviewed Diagnostic Tests Indication: Rib pain Rib pain : Follow up tomorrow, as needed Indication: Rib pain Dysphagia, unspecified dysphagia : Continue Current Prescription(s) Indication: Dysphagia, unspecified dysphagia Dysphagia, unspecified dysphagia : Reviewed Diagnostic Tests Indication: Dysphagia, unspecified dysphagia Dysphagia, unspecified dysphagia : Flu Shots (Influenza Vaccine): prevention Indication: Dysphagia, unspecified dysphagia Chest pain : Chest Pain, Noncardiac: noncardiac chest pain Indication: Chest pain Dysuria : Clean-Catch Urine Sample (Women) *: urinary tract infection Indication: Dysuria Hypertension, renal disease : Follow up in 4 months Indication: Hypertension, renal disease ERYTHEMATOSUS, LUPUS : Reviewed Real Estate Agent/Broker Letter Indication: ERYTHEMATOSUS, LUPUS Hypercholesteremia : *Cholesterol - Nonprescription Treatment Indication: Hypercholesteremia Hypercholesteremia : Cholesterol mgmt Indication: Hypercholesteremia Hypertension, renal disease : Diet, Exercise, and Wt loss Indication: Hypertension, renal disease Hypertension, renal disease : HTN/CAD Red Flags Indication: Hypertension, renal disease Hypercholesteremia : *Cholesterol - Medication Side Effects Indication: Hypercholesteremia Hypercholesteremia : *Cholesterol - Nonprescription Treatment Indication: Hypercholesteremia Hypercholesteremia : Cholesterol mgmt Indication: Hypercholesteremia Hypertension, renal disease : Reviewed Lab Indication: Hypertension, renal disease COPD, moderate : Continue Current Prescription(s) Indication: COPD, moderate Hypertension, renal disease : Follow up in 4 months Indication: Hypertension, renal disease Hypertension, renal disease : Diet, Exercise, and Wt loss Indication: Hypertension, renal disease Hypertension, renal disease : HTN/CAD Red Flags Indication: Hypertension, renal disease Hypertension, renal disease : Follow up in 4 months Indication: Hypertension, renal disease Hypercholesteremia : Cholesterol mgmt Indication: Hypercholesteremia Hypercholesteremia : *Cholesterol - Nonprescription Treatment Indication: Hypercholesteremia Hypertension, renal disease : Diet, Exercise, and Wt loss Indication: Hypertension, renal disease Hypertension, renal disease : HTN/CAD Red Flags Indication: Hypertension, renal disease Nausea : FOLLOW UP IN 2 WEEKS Indication: Nausea Acute exacerbation of COPD with asthma : Continue Current Prescription(s) Indication: Acute exacerbation of COPD with 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 Indication: COPD, moderate Hypertension, renal disease : HTN/CAD Red Flags Indication: Hypertension, renal disease Hypertension, renal disease : Diet, Exercise, and Wt loss Indication: Hypertension, renal disease Hypercholesteremia : CHOLESTEROL MGMT. Indication: Hypercholesteremia Hypercholesteremia : *Cholesterol - Nonprescription Treatment Indication: Hypercholesteremia Hypercholesteremia : *Cholesterol - Medication Side Effects Indication: Hypercholesteremia Vertigo : *Vertigo Education Indication: Vertigo Hypoxemia : FOLLOW UP IN 1 MONTH Indication: Hypoxemia Unspecified bacterial pneumonia : Continue Current Prescription(s) Indication: Unspecified bacterial pneumonia Acute exacerbation of COPD with asthma : Continue Current Prescription(s) Indication: Acute exacerbation of COPD with asthma Acute exacerbation of COPD with asthma : FOLLOW UP IN 2 WEEKS Indication: Acute exacerbation of COPD with asthma Acute exacerbation of COPD with asthma : Solu Medrol Injection/ Education Indication: Acute exacerbation of COPD with asthma Bronchitis : *URI Treatment Indication: Bronchitis Bronchitis : *URI Symptoms Indication: Bronchitis Bronchitis : *Antibiotic Usage Education - Female Indication: Bronchitis Neoplasm of uncertain behavior of skin : Punch Biopsy with Epi Indication: Neoplasm of uncertain behavior of skin COPD, moderate : FOLLOW UP IN 1 MONTH viola lungs and repeat spirometrry Indication: COPD, moderate Hypertension, renal disease : FOLLOW UP IN 4 MONTHS Indication: Hypertension, renal disease Osteopenia : Reviewed Diagnostic Tests Indication: Osteopenia Osteopenia : Continue Current Prescription(s) Indication: Osteopenia SYMPTOM, ABNORMALITY, GAIT : Reviewed Real Estate Agent/Broker Letter Indication: SYMPTOM, ABNORMALITY, GAIT Hypercholesteremia : *Cholesterol - Medication Side Effects Indication: Hypercholesteremia Hypercholesteremia : CHOLESTEROL MGMT. Indication: Hypercholesteremia Hypercholesteremia : *Cholesterol - Nonprescription Treatment Indication: Hypercholesteremia Hypertension, renal disease : HTN/CAD Red Flags Indication: Hypertension, renal disease Hypertension, renal disease : Diet, Exercise, and Wt loss Indication: Hypertension, renal disease SOB (shortness of breath) on exertion : Reviewed Diagnostic Tests Indication: SOB (shortness of breath) on exertion SYMPTOM, ABNORMALITY, GAIT : Reviewed Diagnostic Tests Indication: SYMPTOM, ABNORMALITY, GAIT Hypertension, renal disease : FOLLOW UP IN 3 MONTHS Indication: Hypertension, renal disease Hypercholesteremia : CHOLESTEROL MGMT. Indication: Hypercholesteremia Hypercholesteremia : *Cholesterol - Nonprescription Treatment Indication: Hypercholesteremia Hypercholesteremia : *Cholesterol - Medication Side Effects Indication: Hypercholesteremia Hypertension, renal disease : Diet, Exercise, and Wt loss Indication: Hypertension, renal disease Hypertension, renal disease : HTN/CAD Red Flags Indication: Hypertension, renal disease Hypertension, renal disease : FOLLOW UP IN 3 MONTHS Indication: Hypertension, renal disease ERYTHEMATOSUS, LUPUS : Continue Current Prescription(s) Indication: ERYTHEMATOSUS, LUPUS ERYTHEMATOSUS, LUPUS : Reviewed Real Estate Agent/Broker Letter Indication: ERYTHEMATOSUS, LUPUS Hypertension, renal disease : Diet, Exercise, and Wt loss Indication: Hypertension, renal disease Hypertension, renal disease : HTN/CAD Red Flags Indication: Hypertension, renal disease Hypercholesteremia : CHOLESTEROL MGMT. Indication: Hypercholesteremia Hypercholesteremia : *Cholesterol - Nonprescription Treatment Indication: Hypercholesteremia Hypercholesteremia : *Cholesterol - Medication Side Effects Indication: Hypercholesteremia Hypertension, renal disease : FOLLOW UP IN 4 MONTHS Indication: Hypertension, renal disease Hypertension, renal disease : Continue Current Prescription(s) Indication: Hypertension, renal disease Hypercholesteremia : Reviewed Lab Indication: Hypercholesteremia Spinal stenosis of lumbar region : Reviewed Real Estate Agent/Broker Letter Indication: Spinal stenosis of lumbar region Fatigue : *fatigue education Indication: Fatigue Well woman exam : Self Breast Exam Education Indication: Well woman exam Well woman exam : Colon Cancer Screening Indication: Well woman exam Well woman exam : Pelvic/Bimanual/Rectal/Breast Exam Indication: Well woman exam Well woman exam : Well Female Maintenance (KF) Indication: Well woman exam Hypercholesteremia : Reviewed Lab Indication: Hypercholesteremia Osteopenia : Calcium Education (KF) Indication: Osteopenia Hypertension, renal disease : Continue Current Prescription(s) Indication: Hypertension, renal disease Osteopenia : Bisphosphonate Education Indication: Osteopenia Osteopenia : Calcium Education (KF) Indication: Osteopenia Hypercholesteremia : Cholesterol - Medication Side Effects Indication: Hypercholesteremia Hypercholesteremia : Cholesterol - Nonprescription Treatment Indication: Hypercholesteremia Hypercholesteremia : CHOLESTEROL MGMT. Indication: Hypercholesteremia Osteopenia : Reviewed Diagnostic Tests Indication: Osteopenia Hypertension, renal disease : FOLLOW UP IN 1 MONTH Indication: Hypertension, renal disease Hypertension, renal disease : BP MONITORING - SELF Indication: Hypertension, renal disease BLADDER RETENTION OF URINE : UTI treatment Indication: BLADDER RETENTION OF URINE BLADDER RETENTION OF URINE : Water in diet, brief version Indication: BLADDER RETENTION OF URINE Tobacco abuse : Smoking Cessation/Tobacco Education Indication: Tobacco abuse Continue Current Prescription(s) Peripheral vascular disease : Continue Current Prescription(s) Indication: Peripheral vascular disease Osteopenia : Calcium Education (KF) Indication: Osteopenia HTN/CAD Red Flags Diet, Exercise, and Wt loss Cervical strain : Reviewed Diagnostic Tests Indication: Cervical strain Planned Observations URINALYSIS, W/ MICRO ([id number])Indication: Hypertension, renal disease On: :09 Request MICROALBUMIN: CREATININE RATIO ([id number]) AND ([id number])Indication: Hypertension, renal disease On: :09 Request METABOLIC PANEL, COMPREHENSIVE ([id number])Indication: Hypertension, renal disease On: :09 Request CBC W/AUTO DIFF WBC ([id number])Indication: Hypertension, renal disease On: : Request TSH ([id number])Indication: Sinus bradycardia On: :08 Request CALCIFEDIOL ([id number])Indication: Vitamin D deficiency On: :07 Request VITAMIN B-12 (CYANOCOBALAMIN) ([id number])Indication: Other vitamin B12 deficiency anemia On: : Request LIPID PANEL ([id number])Indication: Hypercholesteremia On: :07 Request CBC WITH MANUAL DIFF ([id number])Indication: Other vitamin B12 deficiency anemia On: :20 Request VITAMIN B-12 (CYANOCOBALAMIN) ([id number])Indication: Other vitamin B12 deficiency anemia On: :20 Request Metabolic Panel, Basic ([id number])Indication: Hypopotassemia On: :09 Request Comments: re check one week VITAMIN B-12 (CYANOCOBALAMIN) ([id number])Indication: Other vitamin B12 deficiency anemia On: :48 Request LIPID PANEL ([id number])Indication: Hypertension, renal disease On: :46 Request MAGNESIUM ([id number])Indication: Hypopotassemia On: :44 Request POTASSIUM SERUM ([id number])Indication: Hypopotassemia On: :44 Request TSH ([id number])Indication: Sinus bradycardia On: :35 Request CALCIFEDIOL ([id number])Indication: Vitamin D deficiency On: :35 Request LIPID PANEL ([id number])Indication: Hypercholesteremia On: 40-Ogv-028972:35 Request URINALYSIS, W/ MICRO ([id number])Indication: Hypertension with heart disease On: 42-Mde-755830:20 Request MICROALBUMIN: CREATININE RATIO ([id number]) AND ([id number])Indication: Hypertension with heart disease On: 42-Npv-518050:20 Request TSH ([id number])Indication: Hypercholesteremia On: : Request URINALYSIS, W/ MICRO ([id number])Indication: Hypertension, renal disease On: : Request MICROALBUMIN: CREATININE RATIO ([id number]) AND ([id number])Indication: Hypertension, renal disease On: : Request METABOLIC PANEL, COMPREHENSIVE ([id number])Indication: Hypertension, renal disease On: : Request LIPID PANEL ([id number])Indication: Hypercholesteremia On: : Request CBC W/AUTO DIFF WBC ([id number])Indication: Hypertension, renal disease On: : Request VITAMIN B-12 (CYANOCOBALAMIN) ([id number])Indication: Other vitamin B12 deficiency anemia On: :19 Request CBC WITH MANUAL DIFF ([id number])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 On: 17-Feb-2016 Request Comments: STANDING ORDER CBC WITH MANUAL DIFF ([id number])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 On: 03-Feb-2016 Request Comments: STANDING ORDER CBC WITH MANUAL DIFF ([id number])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 On: 20-Jan-2016 Request Comments: STANDING ORDER CBC WITH MANUAL DIFF ([id number])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 On: 06-Jan-2016 Request Comments: STANDING ORDER CBC WITH MANUAL DIFF ([id number])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 On: 23-Dec-2015 Request Comments: STANDING ORDER CBC WITH MANUAL DIFF ([id number])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 On: 09-Dec-2015 Request Comments: STANDING ORDER CBC WITH MANUAL DIFF ([id number])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 On: 25-Nov-2015 Request Comments: STANDING ORDER CBC W/AUTO DIFF WBC ([id number])Indication: Anemia, unspecified On: 23-Nov-2015 Request CBC W/AUTO DIFF WBC ([id number])Indication: Anemia, unspecified On: 20-Nov-2015 Request CBC W/AUTO DIFF WBC ([id number])Indication: Anemia, unspecified On: 17-Nov-2015 Request CBC W/AUTO DIFF WBC ([id number])Indication: Anemia, unspecified On: 14-Nov-2015 Request CBC W/AUTO DIFF WBC ([id number])Indication: Anemia, unspecified On: 11-Nov-2015 Request CBC WITH MANUAL DIFF ([id number])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 On: 11-Nov-2015 Request Comments: STANDING ORDER CBC W/AUTO DIFF WBC ([id number])Indication: Anemia, unspecified On: 08-Nov-2015 Request CBC W/AUTO DIFF WBC ([id number])Indication: Anemia, unspecified On: 05-Nov-2015 Request CBC W/AUTO DIFF WBC ([id number])Indication: Anemia, unspecified On: 02-Nov-2015 Request CBC W/AUTO DIFF WBC ([id number])Indication: Anemia, unspecified On: 30-Oct-2015 Request CBC WITH MANUAL DIFF ([id number])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 On: 28-Oct-2015 Request Comments: STANDING ORDER CBC W/AUTO DIFF WBC ([id number])Indication: Anemia, unspecified On: 27-Oct-2015 Request CBC W/AUTO DIFF WBC ([id number])Indication: Anemia, unspecified On: 24-Oct-2015 Request CBC W/AUTO DIFF WBC ([id number])Indication: Anemia, unspecified On: 21-Oct-2015 Request CBC W/AUTO DIFF WBC ([id number])Indication: Anemia, unspecified On: 18-Oct-2015 Request CBC W/AUTO DIFF WBC ([id number])Indication: Anemia, unspecified On: 15-Oct-2015 Request CBC W/AUTO DIFF WBC ([id number])Indication: Anemia, unspecified On: 12-Oct-2015 Request CBC WITH MANUAL DIFF ([id number])Indication: Unspecified Diagnosis On: 36-Die-326878:43 Request CBC W/AUTO DIFF WBC ([id number])Indication: Anemia, unspecified On: 09-Oct-2015 Request FECAL OCCULT- Tubes sent home ([id number])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 On: 04-Due-586414:23 Request CBC W/AUTO DIFF WBC ([id number])Indication: Anemia, unspecified On: 06-Oct-2015 Request CBC W/AUTO DIFF WBC ([id number])Indication: Anemia, unspecified On: 03-Oct-2015 Request CBC W/AUTO DIFF WBC ([id number])Indication: Anemia, unspecified On: 30-Sep-2015 Request CBC WITH MANUAL DIFF ([id number])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 On: 30-Sep-2015 Request Comments: STANDING ORDER CBC W/AUTO DIFF WBC ([id number])Indication: Anemia, unspecified On: 27-Sep-2015 Request CBC W/AUTO DIFF WBC ([id number])Indication: Anemia, unspecified On: 24-Sep-2015 Request CBC W/AUTO DIFF WBC ([id number])Indication: Anemia, unspecified On: 21-Sep-2015 Request HEMOGLOBIN & HEMATOCRITIndication: Low hemoglobin and low hematocrit On: 69-Pbq-937963:44 Request CBC W/AUTO DIFF WBC ([id number])Indication: Anemia, unspecified On: 18-Sep-2015 Request CBC WITH MANUAL DIFF ([id number])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 On: 39-Whj-438347:26 Request Comments: STANDING ORDER CBC W/AUTO DIFF WBC ([id number])Indication: Anemia, unspecified On: 15-Sep-2015 Request CBC W/AUTO DIFF WBC ([id number])Indication: Anemia, unspecified On: 12-Sep-2015 Request CBC W/AUTO DIFF WBC ([id number])Indication: Anemia, unspecified On: 09-Sep-2015 Request CBC W/AUTO DIFF WBC ([id number])Indication: Anemia, unspecified On: 06-Sep-2015 Request CBC W/AUTO DIFF WBC ([id number])Indication: Anemia, unspecified On: 03-Sep-2015 Request CBC W/AUTO DIFF WBC ([id number])Indication: Anemia, unspecified On: 31-Aug-2015 Request CBC W/AUTO DIFF WBC ([id number])Indication: Anemia, unspecified On: 3-Xxg-464816:38 Request Urine Protein Electrophoresis (UPEP) ([id number])Indication: Chronic kidney disease (CKD), stage 2 (mild) On: 20-Vfe-542939:18 Request Serum Protein Electrophoresis (SPEP) ([id number])Indication: Chronic kidney disease (CKD), stage 2 (mild) On: 87-Zgd-510936:18 Request MAGNESIUM ([id number])Indication: Chronic kidney disease (CKD), stage 2 (mild) On: 65-Jlh-810750:18 Request PHOSPHORUS ([id number])Indication: Chronic kidney disease (CKD), stage 2 (mild) On: 48-Gjs-797541:18 Request CALCIFEDIOL ([id number])Indication: Chronic kidney disease (CKD), stage 2 (mild) On: 97-Npz-493733:18 Request PARATHORMONE ([id number])Indication: Chronic kidney disease (CKD), stage 2 (mild) On: 69-Hzr-963631:18 Request TSH ([id number])Indication: CAD in [place] artery On: :16 Request URINALYSIS, W/ MICRO ([id number])Indication: Hypertension, renal disease On: :16 Request MICROALBUMIN: CREATININE RATIO ([id number]) AND ([id number])Indication: Hypertension, renal disease On: :16 Request METABOLIC PANEL, COMPREHENSIVE ([id number])Indication: Hypertension, renal disease On: :16 Request LIPID PANEL ([id number])Indication: Hypercholesteremia On: :16 Request CBC W/AUTO DIFF WBC ([id number])Indication: Hypertension, renal disease On: 73-Hsp-764309:16 Request HCT (Hematocrit) ([id number])Indication: Abnormal blood chemistry On: 5-Mgy-378093:00 Request HGB (HEMOGLOBIN) ([id number])Indication: Abnormal blood chemistry On: 0-Vyz-027896:00 Request IRON ([id number])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 On: 55-Kpb-890505:32 Request Iron ([id number])Indication: Anemia, unspecified On: 63-Dlu-020768:31 Request CBC W/AUTO DIFF WBC ([id number])Indication: Anemia, unspecified On: 86-Llf-387512:37 Request IRON ([id number])Indication: Anemia, unspecified On: 89-Gtd-112189:41 Request IRON ([id number])Indication: Anemia, unspecified On: 64-Zpu-093621:59 Request CBC, PLATELETS & MANUAL DIFF ([id number])Indication: Anemia, unspecified On: 6-Ukw-962694:54 Request Comments: recheck 03-08-14 LIAM TEST, DIRECT ([id number])Indication: Anemia, unspecified On: 87-Uag-573484:25 Request FOLIC ACID SERUM ([id number])Indication: Anemia, unspecified On: Request Methymalonic Acid, Serum ([id number])Indication: Anemia, unspecified On: Request VITAMIN B-12 (CYANOCOBALAMIN) ([id number])Indication: Anemia, unspecified On: : Request RETICULOCYTE COUNT MANUL ([id number])Indication: Anemia, unspecified On: Request LDH (LD) (LACTATE DEHYDROGENASE) ([id number])Indication: Anemia, unspecified On: Request IRON BINDING CAPACITY (TIBC) ([id number])Indication: Anemia, unspecified On: Request IRON ([id number])Indication: Anemia, unspecified On: Request FERRITIN ([id number])Indication: Anemia, unspecified On: Request CBC, PLATELETS & AUT DIFF ([id number])Indication: Anemia, unspecified On: Request HCT (Hematocrit) ([id number])Indication: Abnormal blood chemistry On: :18 Request Comments: stat HGB (HEMOGLOBIN) ([id number])Indication: Abnormal blood chemistry On: :17 Request Comments: stat FECAL OCCULT HGB ASSAY- tubes sent home ([id number])Indication: Encounter for Medicare annual wellness exam On: 34-Wxq-444555:46 Request TSH ([id number])Indication: Hypertension, renal disease On: :07 Request URINALYSIS, W/ MICRO ([id number])Indication: Hypertension, renal disease On: 0-Vjk-097341:07 Request MICROALBUMIN: CREATININE RATIO ([id number]) AND ([id number])Indication: Hypertension, renal disease On: 3-Aoh-726522:06 Request METABOLIC PANEL, COMPREHENSIVE ([id number])Indication: Hypertension, renal disease On: : Request LIPID PANEL ([id number])Indication: Hypertension, renal disease On: : Request CBC WITH MANUAL DIFF ([id number])Indication: Hypertension, renal disease On: 9-Llj-270657:06 Request Metabolic Panel, Basic ([id number])Indication: Hypertension, renal disease On: 9-Qhy-796100:34 Request CREATININE CLEARANCE ([id number])Indication: Hypertension, renal disease On: :52 Request CBC WITH MANUAL DIFF ([id number])Indication: Hypertension, renal disease On: :32 Request METABOLIC PANEL, COMPREHENSIVE ([id number])Indication: Hypertension, renal disease On: :32 Request Sed Rate Erythrocyte ([id number])Indication: Hypertension, renal disease On: :32 Request MICROALBUMIN 24 HOUR OR RANDOM ([id number])Indication: Hypertension, renal disease On: :32 Request Urine Protein Electrophoresis (UPEP) ([id number])Indication: Hypertension, renal disease On: : Request Serum Protein Electrophoresis (SPEP) ([id number])Indication: Hypertension, renal disease On: : Request MAGNESIUM ([id number])Indication: Hypertension, renal disease On: :32 Request PHOSPHORUS ([id number])Indication: Hypertension, renal disease On: :32 Request CALCIFEDIOL ([id number])Indication: Hypertension, renal disease On: :32 Request PARATHORMONE ([id number])Indication: Hypertension, renal disease On: :32 Request FECAL OCCULT HGB ASSAY- tubes sent home ([id number])Indication: Weight loss On: 9-Ise-582523:07 Request HEPATIC FUNCTION PANEL ([id number])Indication: Hypercholesteremia On: :26 Request LIPID PANEL ([id number])Indication: Hypercholesteremia On: :26 Request C-REACTIVE PROTEIN ([id number])Indication: Abdominal pain, unspecified abdominal location On: :43 Request Sedimentation Rate-ESR (47158)Indication: Abdominal pain, unspecified abdominal location On: :43 Request Metabolic Panel, Comprehensive ([id number])Indication: Abdominal pain, unspecified abdominal location On: :42 Request CBC with manual diff ([id number])Indication: Abdominal pain, unspecified abdominal location On: :42 Request Lipase ([id number])Indication: Abdominal pain, unspecified abdominal location On: :42 Request Amylase ([id number])Indication: Abdominal pain, unspecified abdominal location On: 27-Aug-20108:42 Request TSH ([id number])Indication: Hypercholesteremia On: :17 Request URINALYSIS, W/ MICRO ([id number])Indication: Hypertension, renal disease On: :17 Request MICROALBUMIN: CREATININE RATIO ([id number]) AND ([id number])Indication: Hypertension, renal disease On: :17 Request METABOLIC PANEL, COMPREHENSIVE ([id number])Indication: Hypertension, renal disease On: :17 Request CBC WITH MANUAL DIFF ([id number])Indication: Hypertension, renal disease On: :17 Request LIPID PANEL ([id number])Indication: Hypercholesteremia On: :17 Request Creatine ([id number])Indication: Hypertension, renal disease On: 56-Dcy-865986:19 Request Urinalysis, Office ([id number])Indication: Abdominal pain, unspecified abdominal location On: 88-Rkc-391768:09 Request TSH ([id number])Indication: Hypercholesteremia On: 56-Zmm-641488:07 Request METABOLIC PANEL, COMPREHENSIVE ([id number])Indication: Hypertension, renal disease On: 98-Vtq-295125:06 Request LIPID PANEL ([id number])Indication: Hypertension, renal disease On: 27-Lhp-321111:06 Request CBC WITH MANUAL DIFF ([id number])Indication: Hypertension, renal disease On: 18-Ocs-842171:06 Request Folate ([id number])Indication: Fatigue On: 48-Mci-897438:41 Request FECAL OCCULT HGB ASSAY- tubes sent home ([id number])Indication: Well woman exam On: 48-Uqf-827098:37 Request HEPATIC FUNCTION PANEL ([id number])Indication: Hypercholesteremia On: 95-Oxx-547305:36 Request LIPID PANEL ([id number])Indication: Hypercholesteremia On: 77-Dpl-795821:36 Request Comments: do in 2- 2 1/2 months CCP ANTIBODY ([id number])Indication: Pain in thoracic spine On: 2-Gox-318667:18 Request Vitamin D Hydroxy ([id number])Indication: Osteopenia On: 52-Iec-517710:19 Request HEPATIC FUNCTION PANEL ([id number])Indication: Hypercholesteremia On: 53-Qti-037456:15 Request LIPID PANEL ([id number])Indication: Hypercholesteremia On: :15 Request Comments: do in 3 mo LIPOPROTEIN, BLD, BY NMR ([id number])Indication: Hypercholesteremia On: :15 Request Urinalysis, Office ([id number])Indication: BLADDER RETENTION OF URINE On: :19 Request Comments: NEG TSH (57741)Indication: Irritable bowel syndrome On: :53 Request MICROALBUMIN: CREATININE RATIO On: :53 Request ([id number]) AND ([id number]) METABOLIC PANEL, COMPREHENSIVE On: :53 Request ([id number]) LIPOPROTEIN, BLD, BY NMR ([id number]) On: :53 Request LIPID PANEL (12353) On: :53 Request CBC WITH MANUAL DIFF ([id number]) On: :51 Request Planned Procedures Spirometry (05152)By: Chapis MONTGOMERY, On: 18-Oct-2017 Intent Priya Atkinson DO ELECTROCARDIOGRAM, COMPLETE (ECG) On: 18-Oct-2017 Intent ([id number])By: Priya Jimenez DO, DO, Kathleen B 12 Injection, 1000 mcg (J3420)By: On: 15-Apr-2017 Intent Priya Jimenez DO, DO, Comments: 1 ml given lt arm lot [id number] exp 09/11 Priya B 12 Injection, 1000 mcg (J3420)By: On: 12-Nov-2016 Intent Priya Jimenez DO, DO, Kathleen INTENSIVE BEHAVIORAL THERAPY TO On: 08-Jul-2016 Intent REDUCE CARDIOVASCULAR DISEASE RISK, INDIVIDUAL, FHPH-PD-NSPI, ANNUAL, 15 MINUTES (G0446)By: Priya Jimenez DO, DO, Kathleen ELECTROCARDIOGRAM, COMPLETE (ECG) On: 11-Jun-2016 Intent (47573)By: Priya Jimenez DO Comments: sinus jg no acute chg - nonspefic flattening st waves Priya Jimenez DO B 12 Injection, 1000 mcg (J3420)By: On: 05-Sep-2015 Intent Chapis DO, Priay Chapis DO, Comments: lot #[id number] exp 02-09 Left arm Priya EMGBy: Chapis DO, Priya Chapis On: 13-Aug-2015 Intent DO, Priya Nerve ConductionBy: Chapis DO, On: 13-Aug-2015 Intent Priya Chapis DO, Priya B 12 Injection, 1000 mcg (J3420)By: On: 13-Aug-2015 Intent Chapis DO, Priya Chapis DO, Comments: Lot:[id number]:09/09Dose:1mlRoute:IMSite:larmGiven By:JKMVIS signed Priya PNEUM VAC ADLT/IMUMNOSPR, SBC/INTRM On: 13-Aug-2015 Intent ([id number])By: Chapis DOAdarshPriya Comments: pneumovaxlot:[id number]:01/31/17site:lt deltroute:IMDEmick, [place] Chapis DO, Priya Radiology - PelvisBy: Chapis DO, On: 03-May-2015 Intent Priya Chapis DO, Priya Radiology - Hip - RightBy: Chapis On: 01-May-2015 Intent DO, Priya Chapis DO, Priya MRI - Knee(s) - RightBy: Chapis DO, On: 28-Mar-2015 Intent Priya Chapis DO, Priya MRI - OtherBy: Chapis DO, Priya On: 28-Mar-2015 Intent Chapis DO, Priya Comments: R quadracep muscle and tendon attachment site inferior to patella B 12 Injection, 1000 mcg (J3420)By: On: 13-Feb-2015 Intent Chapis DO, Priya Chapis DO, Comments: given - 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, APPEALS BOARD REFEREE Priya Flu Vaccine (Quadrivalent) 05630Il: On: 04-Feb-2015 Intent Chapis DO, Priya Chapis DO, Comments: lot [id number]: 10/24/2015site/route L janet, IMamt 0.5mlVIS and ABN signed when applicableChelscammie, CMAFM4 Priya Holter Monitor 24 hrsBy: Chapis DO, On: 10-Oct-2014 Intent Priya Chapis DO, Priya Venous Doppler - LeftBy: Elda LOU, On: 03-Jul-2014 Intent Kenn Hartley Radiology - Lumbar SpineBy: Caroleerickastevenson On: 03-Jul-2014 Intent Kenn LOU Toradol Injection, 30 mg On: 03-Jul-2014 Intent (J1885)By: Elda LOUKenn Venous Doppler - RightBy: Elda On: 03-Jul-2014 Intent Kenn LOU Six Minute Walk Assessment On: 07-Mar-2014 Intent ([id number])By: Priya Jimenez DO Comments: set up Priya Jimenez DO Prevnar 13 (76904)By: Chapis MONTGOMERY On: 21-Feb-2014 Intent Priya Atkinson DO Comments: [id number] arm, IMAS ADMINISTRATION OF INFLUENZA VIRUS On: 21-Feb-2014 Intent VACCINE (G0008)By: Chapis MONTGOMERY, Comments: [id number] syringeL Dltd, IMAS, LPNABN and VIS signed Priya Atkinson DO Flu Vaccine (Quadrivalent) 54074In: On: 21-Feb-2014 Priya Matson DO, DO, Kathleen Bone Density StudyBy: Chapis MONTGOMERY, On: 26-Jul-2013 Intent Priya Atkinsno DO Spirometry (02160)By: Chapis MONTGOMERY On: 22-Feb-2013 Intent Priya Atkinson DO Comments: obstr present - presnet taking mdi's- and trying to quit with ecig FLU VAC, SPLIT, >3 YEARS, INTRAMUSC On: 22-Feb-2013 Intent (43648)By: Joaquina Young LPN Comments: Lot:[id number]:6.14Amt:0.5mlRoute:IMSite: L DltdGiven By: NOEMY MazaVIS signed ADMINISTRATION OF INFLUENZA VIRUS On: 22-Feb-2013 Intent VACCINE (G0008)By: Joaquina Young LPN Eprescribed prescriptions On: 31-Aug-2012 Intent (G8553)By: Joaquina Young LPN Eprescribed prescriptions On: 15-Aug-2012 Intent (G8553)By: Joaquina Young LPN SLEEP STUDY, ATTENDED (03716)By: On: 08-Aug-2012 Intent Chapis DO, Priya Chapis DO, Priya Eprescribed prescriptions On: 06-Jul-2012 Intent (G8553)By: Jen Rowland LPN Radiology - Chest- PA and LatBy: On: 03-Jun-2012 Intent Chapis DO, Priya Chapis DO, Priya Eprescribed prescriptions On: 03-Jun-2012 Intent (G8553)By: Priya Jimenez DO DO, Priya Eprescribed prescriptions On: 04-Mar-2012 Intent (G8553)By: Tia Morgan Eprescribed prescriptions On: 01-Mar-2012 Intent (G8553)By: Kenn Aragon CNP Solu -Medrol Injection, 125 mg On: 01-Mar-2012 Intent (J2930)By: Kenn Aragon CNP Comments: lot number [id number] 08/2014 IM left hip 125mg solumedrol Radiology - ChestBy: Elda LOU, On: 01-Mar-2012 Intent Kenn Hartley Kmtfathrg-Dfx-Ohqb (97245)By: Elda On: 01-Mar-2012 Intent Kenn LOU Pulse Oximetry (11371)By: Kashif SALGUERO, On: 01-Mar-2012 Intent Jen Funk Comments: 97 FLU VAC, SPLIT, >3 YEARS, INTRAMUSC On: 31-Dec-2011 Intent ([id number])By: Priya Jimenez DO Comments: Lot #[id number]-L dltd, IMDose prefilled syringegiven by:NOEMY HardinVIS signed Priya Jimenez DO ADMINISTRATION OF INFLUENZA VIRUS On: 31-Dec-2011 Intent VACCINE (G0008)By: Priya Jimenez DO, DO, Kathleen Esophagram with 13 mm tabletBy: On: 31-Dec-2011 Intent Priya Jimenez DO, DO, Kathleen EKG (04451)By: Joaquina Young On: 31-Dec-2011 Josefina SALGUERO Comments: nsr no acute chg -- LAD/ q waves in inferior leads Eprescribed prescriptions On: 31-Dec-2011 Intent (G8553)By: Joaquina Young LPN Spirometry (64552)By: Chapis MONTGOMERY, On: 12-Aug-2011 Intent Priya Atkinson DO Comments: 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 - she is good with lack of symptoms MAMMOGRAM, SCREENING, BOTH BREASTS On: 12-Aug-2011 Intent (76310)By: Priya Jimenez DO, DO, Kathleen Eprescribed prescriptions On: 02-Apr-2011 Intent (G8553)By: Priya Jimenez DO, DO, Kathleen FLU VAC, SPLIT, >3 YEARS, INTRAMUSC On: 13-Jan-2011 Intent (49409)By: Elin Andrade RN Comments: Lot #:[id number] date: 10/05Amount given: 0.5 mlRoute: IMSite given: left deltoidGiven by: BHUPINDER Gutierrez IMMUNIZ ADMNIN, 1 VAC, SNGL/COMBO On: 13-Jan-2011 Intent (55150)By: Elin Andrade RN EKG (06464)By: Priya Jimenez DO On: 01-Dec-2010 Intent Priya Jimenez DO Comments: nsr no acute disease Eprescribed prescriptions On: 01-Dec-2010 Intent (G8553)By: Joaquina Young LPN Toradol Injection, 30 mg On: 25-Sep-2010 Intent (J1885)By: Priya Jimenez DO Comments: Lot #[id number]/13Site-left hipDose- 30mggiven by: NOEMY Morton DO, Kathleen Eprescribed prescriptions On: 25-Sep-2010 Intent (G8553)By: Priya Jimenez DO, DO, Kathleen Pulse Oximetry (80039)By: Chapis On: 15-Sep-2010 Priya Rocha DO, DO, Kathleen Comments: 90%-- with agressive walking Nuclear Medicine - MRCPBy: Chapis On: 28-Aug-2010 Priya Rocha DO, DO, Kathleen Radiology - Chest- PA and LatBy: On: 27-Aug-2010 Intent Priya Jimenez DO, DO, Kathleen CT - Abdomen & Pelvis (IV Contrast On: 27-Aug-2010 Intent Needed)By: Priya Jimenez DO Comments: Priya Cortez DO MAMMOGRAM, SCREENING, BOTH BREASTS On: 25-Aug-2010 Intent (38170)By: Priya Jimenez DO, DO, Kathleen CT - Chest (IV Contrast Needed)By: On: 22-Aug-2010 Intent Priya Jimenez DO, DO, Priya Overnight Pulse OX (71691)By: On: 22-Aug-2010 Intent Priya Jimenez DO, DO, Comments: set up today Priya Overnight Pulse OX (33910)By: On: 25-Jul-2010 Intent Vanessa Azar LPN Overnight Pulse OX (87915)By: On: 11-Jul-2010 Intent Priya Jimenez DO, DO, Comments: set up [place] Pulse Oximetry (26466)By: Chapis On: 27-Jun-2010 Priya Rocha DO, DO, Kathleen Spirometry (69869)By: Chapis MONTGOMERY, On: 13-Jun-2010 Intent Priya Atkinson DO Comments: severe obstruction -- noncompliance with use of inhalers -- will restart smaples proveded Aerosol Treatment (38712)By: Chapis On: 13-Jun-2010 Priya Rocha DO, DO, Kathleen Comments: more a/e but more noise with exp Rocephin Injection, 2 Gram On: 13-Jun-2010 Intent (J0696)By: Priya Jimenez DO Comments: Lot #[id number]/12Site-L hipDose 5ml/2given by:Priya Camarillo DO Solu- Medrol Injection, 125mg On: 13-Jun-2010 Intent (J2930)By: Priya Jimenez DO Comments: Lot #[id number]-R hipDose 125mg/2mlgiven by:Priya Camarillo DO Pulse Oximetry (18667)By: Chapis On: 13-Jun-2010 Intent Priya MONTGOMERY DO, Kathleen Comments: 91% Spirometry (54872)By: Chapis MONTGOMERY, On: 23-Apr-2010 Intent Priya Atkinson DO Comments: severe obstruction TDAP VACCINE >7 IM (52603)By: On: 23-Apr-2010 Intent Priya Jimenez DO, DO, Comments: 0.5cc given im lt arm lot [id number] exp 06-20-12 Priya EKG (88973)By: Priya Jimenez DO On: 10-Mar-2010 Intent Priya Jimenez DO Comments: LAFB - unchgned-- nsr no acute changes Nuclear Stress Test/Stress On: 10-Mar-2010 Intent SPECT/AdenosineBy: Chapis MONTGOMERY, Comments: pt has PVD which is why i didnt order treadmill Priya Atkinson DO Echo CompleteBy: Chapis MONTGOMERY, On: 10-Mar-2010 Intent Priya Atkinson DO Pulse Oximetry (82533)By: Chapis On: 10-Mar-2010 Intent Priya MONTGOMERY DO, Kathleen MRI - BrainBy: Priya Jimenez DO On: 10-Mar-2010 Intent Priya Jimenez DO ADMINISTRATION OF INFLUENZA VIRUS On: 04-Mar-2010 Intent VACCINE (G0008)By: Elin Andrade RN Comments: Lot #: [id number] date: mount given: 0.5 mlRoute: IMSite given: left deltoidGiven by: Stevenson Singletary RN FLU VAC, SPLIT, >3 YEARS, INTRAMUSC On: 04-Mar-2010 Intent (75188)By: Elin Andrade RN EKG (34871)By: Priya Jimenez DO On: 09-Jan-2010 Intent Priya Jimenez DO Comments: nsr no acute changes MAMMOGRAM, SCREENING, BOTH BREASTS On: 18-Mar-2009 Intent (15740)By: Priya Jimenez DO, DO, Kathleen MRI - Lumbar SpineBy: Chapis MONTGOMERY, On: 07-Feb-2009 Intent Priya Atkinson DO Radiology - Lumbar SpineBy: Chapis On: 01-Feb-2009 Intent Priya MONTGOMERY DO, Kathleen Radiology - Thoracic SpineBy: On: 01-Feb-2009 Intent Priya Jimenez DO, DO, Kathleen Six Minute Walk Assessment On: 14-Jan-2009 Intent ([id number])By: Vivian Chatterjee LPNIZ ADMNIN, 1 VAC, SNGL/COMBO On: 03-Jan-2009 Intent ([id number])By: Priya Jimenez DO, DO, Kathleen FLU VAC, SPLIT, >3 YEARS, INTRAMUSC On: 03-Jan-2009 Intent ([id number])By: Priya Jimenez DO Comments: Lot #[id number] date: mount given: 0.5 mlRoute: IMSite given: Left deltoidGiven by: NOEMY Kidd DO, Kathleen Six Minute Walk Assessment On: 26-Nov-2008 Intent ([id number])By: Priya Jimenez DO Comments: set up Priya Jimenez DO DXA, BONE DENSITY, AXIAL SKELETON On: 26-Nov-2008 Intent ([id number])By: Priya Jimenez DO, DO, Kathleen EKG ([id number])By: Priya Jimenez DO On: 26-Nov-2008 Intent Priya Jimenez DO Comments: nsr no acute changes PHYSICAL THERAPY EVALUATION On: 21-Nov-2008 Intent ([id number])By: Kenn Aragon CNP Planned Medications INJECTION, CEFTRIAXONE SODIUM, PER 250 MG Ordered: 13-Jun-2010 Pending Priya Jimenez DO DOAdarshPriya INJECTION, KETOROLAC TROMETHAMINE, PER 15 MG Ordered: 25-Sep-2010 Pending Priya Jimenez DO DO, Priya INJECTION, KETOROLAC TROMETHAMINE, PER 15 MG Ordered: 03-Jul-2014 Pending Kenn Aragon CNP INJECTION, METHYLPREDNISOLONE SODIUM SUCCINATE, UP TO 125 MG Ordered: 13-Jun-2010 Pending Priya Jimenez DO, DO, Priya INJECTION, METHYLPREDNISOLONE SODIUM SUCCINATE, UP TO 125 MG Ordered: 01-Mar-2012 Pending Kenn Aragon CNP Vitamin B-12 1000 MCG/ML Injection Solution Ordered: 13-Feb-2015 Pending Priya Jimenez DO, DO, Kathleen Vitamin B-12 1000 MCG/ML Injection Solution Ordered: 13-Aug-2015 Pending Priya Jimenez DO, DO, Kathleen Vitamin B-12 1000 MCG/ML Injection Solution Ordered: 05-Sep-2015 Pending Priya Jimenez DO, DO, Kathleen Vitamin B-12 1000 MCG/ML Injection Solution Ordered: 12-Nov-2016 Pending Priya Jimenez DO, DO, Kathleen Vitamin B-12 1000 MCG/ML Injection Solution Ordered: 15-Apr-2017 Pending Priya Jimenez DO, DO, Kathleen Instructions Name Dates Details Tobacco abuse : How to access health information online Indication: Tobacco abuse Tobacco abuse : How to access health information online - Detail Indication: Tobacco abuse Tobacco abuse : How to access health information online Indication: Tobacco abuse Tobacco abuse : How to access health information online - Detail Indication: Tobacco abuse Tobacco abuse : Patient Instructions Indication: Tobacco abuse Body mass index (BMI) 23.0-23.9, adult : How to access health information online Indication: Body mass index (BMI) 23.0-23.9, adult Body mass index (BMI) 23.0-23.9, adult : How to access health information online - Detail Indication: Body mass index (BMI) 23.0-23.9, adult Body mass index (BMI) 23.0-23.9, adult : Patient Instructions Indication: Body mass index (BMI) 23.0-23.9, adult CAD in [place] artery : cardiovascular counseling Indication: CAD in [place] artery Body mass index (BMI) 23.0-23.9, adult : How to access health information online Indication: Body mass index (BMI) 23.0-23.9, adult Body mass index (BMI) 23.0-23.9, adult : How to access health information online - Detail Indication: Body mass index (BMI) 23.0-23.9, adult Body mass index (BMI) 23.0-23.9, adult : Patient Instructions Indication: Body mass index (BMI) 23.0-23.9, adult Tobacco abuse : How to access health information online Indication: Tobacco abuse Tobacco abuse : How to access health information online - Detail Indication: Tobacco abuse Tobacco abuse : Patient Instructions Indication: Tobacco abuse Acute deep vein thrombosis (DVT) of distal vein of right lower extremity : How to access health information online Indication: Acute deep vein thrombosis (DVT) of distal vein of right lower extremity Acute deep vein thrombosis (DVT) of distal vein of right lower extremity : How to access health information online - Detail Indication: Acute deep vein thrombosis (DVT) of distal vein of right lower extremity Acute deep vein thrombosis (DVT) of distal vein of right lower extremity : Patient Instructions Indication: Acute deep vein thrombosis (DVT) of distal vein of right lower extremity 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 : How to access health information online 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 : How to access health information online - Detail 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 : Patient Instructions 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 Epistaxis : Patient Instructions Indication: Epistaxis COPD, moderate : Patient Instructions Indication: COPD, moderate Hypercholesteremia : How to access health information online Indication: Hypercholesteremia Hypercholesteremia : How to access health information online - Detail Indication: Hypercholesteremia Hypercholesteremia : Patient Instructions Indication: Hypercholesteremia Strain of quadriceps, right, initial encounter : How to access health information online Indication: Strain of quadriceps, right, initial encounter Strain of quadriceps, right, initial encounter : How to access health information online - Detail Indication: Strain of quadriceps, right, initial encounter Strain of quadriceps, right, initial encounter : Patient Instructions Indication: Strain of quadriceps, right, initial encounter 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 : How to access health information online 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 : How to access health information online - Detail 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 : Patient Instructions 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 Hypertension, renal disease : How to access health information online Indication: Hypertension, renal disease Hypertension, renal disease : How to access health information online - Detail Indication: Hypertension, renal disease Hypertension, renal disease : Patient Instructions Indication: Hypertension, renal disease COPD, moderate : How to access health information online Indication: COPD, moderate COPD, moderate : How to access health information online - Detail Indication: COPD, moderate COPD, moderate : Patient Instructions Indication: COPD, moderate DISPLACEMENT OF LUMBAR INTERVERTEBRAL DISC WITHOUT MYELOPATHY : Patient Instructions 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), stage 2 (mild) : How to access health information online - Detail Indication: Chronic kidney disease (CKD), 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), stage 2 (mild) : How to access health information online Indication: Chronic kidney disease (CKD), stage 2 (mild) Osteopenia : How to access health information online Indication: Osteopenia Osteopenia : How to access health information online - Detail Indication: Osteopenia Osteopenia : Patient Instructions Indication: Osteopenia Spinal stenosis of lumbar region : How to access health information online Indication: Spinal stenosis of lumbar region Spinal stenosis of lumbar region : How to access health information online - Detail Indication: Spinal stenosis of lumbar region Spinal stenosis of lumbar region : Patient Instructions Indication: Spinal stenosis of lumbar region Coronary Artery Disease : How to access health information online Indication: Coronary Artery Disease Coronary Artery Disease : How to access health information online - Detail Indication: Coronary Artery Disease Coronary Artery Disease : Patient Instructions Indication: Coronary Artery Disease Hypertension, renal disease : Patient Instructions Indication: Hypertension, renal disease Hypertension, renal disease : Patient Instructions Indication: Hypertension, renal disease Hypertension, renal disease : Patient Instructions Indication: Hypertension, renal disease Hypertension, renal disease : Patient Instructions Indication: Hypertension, renal disease COPD, moderate : Patient Instructions Indication: COPD, moderate Weight loss : Patient Instructions Indication: Weight loss Weight loss : Patient Instructions Indication: Weight loss Cough : Patient Instructions Indication: Cough Unspecified bacterial pneumonia : Patient Instructions Indication: Unspecified bacterial pneumonia Acute exacerbation of COPD with asthma : Patient Instructions Indication: Acute exacerbation of COPD with asthma Dysphagia, unspecified dysphagia : Patient Instructions Indication: Dysphagia, unspecified dysphagia Dysuria : Patient Instructions Indication: Dysuria Hypertension, renal disease : DISCONTINUED - METABOLIC PANEL, COMPREHENSIVE ([id number]) Indication: Hypertension, renal disease Hypertension, renal disease : DISCONTINUED - CBC WITH MANUAL DIFF ([id number]) Indication: Hypertension, renal disease Encounters Office Visit On: 10-Nov-2017 14:01 Encounter Reason: Annual Medicare Exam - The patient had reviewed and updated the family history, medication/s, past medical history and social history. Yes the patient did have a mini mental status exam done today. The End: 10-Nov-2017 14:56 activities of daily living the patient needs help with are bathing, dressing, getting places out of walking distance, shopping for groceries, housework and meal preparation. The patient has had urinary incontinence, has a medalert necklace or bracelet and put handrails in bathroom, but the patient has not had fecal incontinence, missed or ran out of medications to soon, driven in past 6 months, fallen in the past 6 months, gotten lost or put area rugs through house. The patient has completed the following preventative measures: mammography (10 yrs) and colonoscopy (10yrs). The patient does have dura ble power of consumer attorney and living will. The patient has noticed dropping activities and interests and thinking most people are better off than them. Other providers contributing to the patient's care are medical interpreter, director cardiac, operating cost clerk and other:.Encounter Diagnosis: Annual Medicare Phyiscal WITHOUT abnormal findings (Renamed from Encounter for general adult medical examination without abnormal findings), Encounter for screening for malignant neoplasm of colon (Renamed from Special screening for malignant neoplasms, colon), Encounter for screening mammogram for breast cancer (Renamed from Encounter for screening mammogram f or malignant neoplasm of breast), Postmenopausal (Renamed from Postmenopausal status), Lupus [facility] Office Visit On: 05-Nov-2017 16:44 Encounter Diagnosis: Unspecified Diagnosis End: 05-Nov-2017 16:47 [facility] Office Visit On: 18-Oct-2017 14:46 Encounter Reason: Follow up for chronic medical issues - The patient does not feel well, has decreased energy level and is sleeping poorly. Patient has been compliant with instructions. Current medication use: no side ef End: 18-Oct-2017 16:59 fects and compliant with dosing regimen. Patient sleeps 5 hours per night. Nutrition: inappropriate diet and supplemental vitamins. The medical issues the patient is following up for include All identif ied problems below, cardiac issues, COPD, high blood pressure, high cholesterol, hypothyroid and other. blood pressure range : and weight :.Encounter Diagnosis: Body mass index (BMI) 23.0-23.9, adult, Tobacco abuse (305.1), Other vitamin B12 deficiency anemia, Lupus, Myelodysplastic syndrome, high grade, Hypercholesteremia, Hypopotassemia, Vitamin D deficiency, Sinus bradycardia, Hypertension, renal disease, CAD in [place] artery, COPD, moderate, Weakness of right lower extremity, History of fracture of right hip [facility] Annotation/Addendum On: 17-May-2017 15:50 Encounter Diagnosis: Other vitamin B12 deficiency anemia End: 17-May-2017 15:53 [facility] Phone Encounter On: 06-May-2017 9:18 Encounter Diagnosis: Other vitamin B12 deficiency anemia End: 06-May-2017 9:28 [facility] Lab Order On: 03-May-2017 17:06 Encounter Diagnosis: Hypopotassemia End: 03-May-2017 17:09 [facility] Office Visit On: 15-Apr-2017 12:51 Encounter Reason: Follow up for chronic medical issues - The patient does not feel well, has decreased energy level and is sleeping poorly. Patient has been compliant with instructions. Current medication use: no side ef End: 15-Apr-2017 15:20 fects and compliant with dosing regimen. Patient sleeps 5 hours per night. Nutrition: inappropriate diet and supplemental vitamins. The medical issues the patient is following up for include All identif ied problems below, cardiac issues, COPD, high blood pressure, high cholesterol, hypothyroid and other. 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 Patient has been compliant with instructions. Current medication u End: 13-Nov-2016 13:22 se: no side effects and compliant with dosing regimen. Patient sleeps 7 hours per night. Nutrition: balanced diet and supplemental vitamins. The medical issues the patient is following up for include Al l identified problems below, COPD, depression, high blood pressure, high cholesterol and other (IBS). 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 Yes the patient did have a mini mental status exam done today. The End: 08-Jul-2016 12:31 activities of daily living the patient needs help with are bathing and getting places out of walking distance. The patient has put handrails in bathroom, but the patient has not had fecal incontinence, had urinary incontinence, missed or ran out of medications to soon, driven in past 6 months, fallen in the past 6 months, gotten lost, has a medalert necklace or bracelet or put area rugs through house. The patient has completed the following preventative measures: colonoscopy (6 yrs). The patient does have durable power of consumer attorney and living will. The patient has noticed lack of energy. Other provid ers contributing to the patient's care are medical interpreter, operating cost clerk and other:.Encounter Diagnosis: Tobacco abuse (305.1), Body mass index (BMI) 23.0-23.9, adult, Annual Medicare Phyiscal WITHOUT abnormal findings (Renamed from Encounter for general adult medical examination without abnormal findings), Encounter for screening for malignant neoplasm of colon (Renamed from Special screening for malignant neoplasms, colon), CAD in [place] artery [facility] Office Visit On: 11-Jun-2016 11:32 Encounter Reason: Follow up for chronic medical issues - The patient does not feel well, has decreased energy level and is sleeping poorly. Patient has been compliant with instructions. Current medication use: no side ef End: 11-Jun-2016 14:49 fects and compliant with dosing regimen. Patient sleeps 4 hours per night. Nutrition: balanced diet and no supplemental vitamins & iron. The medical issues the patient is following up for include Al l identified problems below, cardiac issues, high blood pressure and high cholesterol. blood pressure range : and weight :.Encounter Diagnosis: Body mass index (BMI) 23.0-23.9, adult, Tobacco abuse (305.1), Pelvis fracture, right, Fatigue (780.79), Myelodysplastic syndrome, high grade, 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, Hypercholesteremia, COPD, moderate, Other vitamin B12 deficiency anemia, Lupus, Hypoxia, Hypertension, renal disease [facility] Phone Encounter On: 24-Jan-2016 13:10 Encounter Diagnosis: Pelvis fracture, right End: 24-Jan-2016 13:22 [facility] Office Visit On: 20-Dec-2015 14:14 Encounter Reason: Follow up hospital - Reason for ER visit: note: (12/01/15 to 12/04/15). The patient has decreased energy level. 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, unspecified bone marrow failure type, Myelodysplastic syndrome, high grade, Weight loss (783.21), Chronic anticoagulation [facility] Phone Encounter On: 01-Nov-2015 15:29 Encounter Diagnosis: CAD in [place] artery End: 01-Nov-2015 15:31 [facility] Office Visit On: 16-Oct-2015 9:47 Encounter Diagnosis: 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 End: 16-Oct-2015 11:08 [facility] Phone Encounter On: 10-Oct-2015 15:39 Encounter Diagnosis: Unspecified Diagnosis End: 10-Oct-2015 15:46 [facility] Office Visit On: 07-Oct-2015 13:39 Encounter Diagnosis: Acute deep vein thrombosis (DVT) of distal vein of right lower extremity, Lupus, 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, Abdominal wall hematoma, initial encounter, Adverse reaction to drug, initial encounter End: 07-Oct-2015 14:26 [facility] Office Visit On: 03-Oct-2015 15:05 Encounter Reason: DVTEncounter Diagnosis: Low hemoglobin and low hematocrit, Acute deep vein thrombosis (DVT) of distal vein of right lower extremity, 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, Lupus End: 03-Oct-2015 16:12 [facility] Office Visit On: 27-Sep-2015 13:44 Encounter Reason: Follow up tests - Date: (09/2015).Encounter Diagnosis: 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, Tobacco abuse (305.1), Low hemoglobin and low hematocrit, Other vitamin B12 deficiency anemia, COPD, moderate, Hypoxia End: 27-Sep-2015 14:20 [facility] Phone Encounter On: 19-Sep-2015 15:29 Encounter Diagnosis: Low hemoglobin and low hematocrit End: 19-Sep-2015 15:56 [facility] Phone Encounter On: 16-Sep-2015 17:24 Encounter Diagnosis: 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 End: 16-Sep-2015 17:27 [facility] Office Visit On: 05-Sep-2015 12:50 Encounter Reason: Follow up tests - Date: (09/03/15 labs).Encounter Diagnosis: Epistaxis, 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, Other vitamin B12 deficiency anemia End: 05-Sep-2015 14:07 [facility] Office Visit On: 28-Aug-2015 14:02 Encounter Reason: Follow up hospital - Reason for ER visit: note: (anemia). The patient feels well with minor complaints. Patient has been compliant with instructions.Encounter Diagnosis: Anemia, unspecified, Insomnia, controlled End: 28-Aug-2015 14:46 [facility] Office Visit On: 13-Aug-2015 11:34 Encounter Reason: Follow up for chronic medical issues - The patient does not feel well, has decreased energy level and is sleeping poorly. Patient has been compliant with instructions. Current medication use: no side ef End: 14-Aug-2015 11:55 fects and compliant with dosing regimen. Patient sleeps 5 (broken) hours per night. Nutrition: balanced diet and supplemental vitamins. The medical issues the patient is following up for include All sandie ntified problems below, high blood pressure and high cholesterol. blood pressure range : and weight :.Encounter Diagnosis: Other vitamin B12 deficiency anemia, Chronic kidney disease (CKD), stage 2 (mild), COPD, moderate, Hypertension, renal disease , Hypercholesteremia, Pneumococcal vaccination given, Constipation, Raynaud's phenomenon (secondary), Left hand paresthesia, Chronic anticoagulation, CAD in [place] artery [facility] Phone Encounter On: 31-Jul-2015 12:41 Encounter Diagnosis: Abnormal blood chemistry End: 31-Jul-2015 12:43 [facility] Office Visit On: 15-Jul-2015 11:17 Encounter Reason: Follow up hospital - Reason for ER visit: note: (nose bleed). The patient does not feel well, has decreased energy level and is sleeping poorly. Patient has been compliant with instructions. Current med End: 15-Jul-2015 12:00 ication use: no side effects and compliant with dosing regimen. Patient sleeps 5 hours per night. Nutrition: balanced diet.Encounter Diagnosis: Fractured hip, Pelvis fracture, right, Epistaxis, Chronic anticoagulation [facility] Lab Order On: 03-May-2015 13:48 Encounter Diagnosis: Hip pain, acute, right End: 03-May-2015 13:52 [facility] Phone Encounter On: 01-May-2015 16:17 Encounter Diagnosis: Hip pain, acute, right End: 01-May-2015 16:19 [facility] Phone Encounter On: 09-Apr-2015 9:38 Encounter Diagnosis: Unable to bear weight End: 09-Apr-2015 9:46 [facility] Office Visit On: 08-Apr-2015 13:54 Encounter Reason: Follow up tests - Date: (04/03 MRI R knee).Encounter Diagnosis: Strain of quadriceps, right, initial encounter, Weakness of limb, Fall at home, initial encounter, Fall, subsequent encounter End: 08-Apr-2015 14:32 [facility] Phone Encounter On: 01-Apr-2015 12:59 Encounter Diagnosis: Abnormal blood chemistry End: 01-Apr-2015 13:07 [facility] Office Visit On: 28-Mar-2015 10:39 Encounter Reason: Falls, Geriatric - The most recent fall occurred week(s) ago indoors. The patient describes the symptoms as moderate in severity.Encounter Diagnosis: Right knee pain, Weakness of limb, Strain of quadriceps, right, initial encounter End: 28-Mar-2015 11:43 , Fall at home, initial encounter [facility] Office Visit On: 13-Feb-2015 14:23 Encounter Reason: Follow up tests - Date: (02/07/15 labs).Encounter Diagnosis: 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, Other vitamin B12 deficiency anemia End: 13-Feb-2015 16:45 [facility] Lab Order On: 05-Feb-2015 13:31 Encounter Diagnosis: ANEMIA, UNSPECIFIED (285.9) End: 05-Feb-2015 13:37 [facility] Office Visit On: 04-Feb-2015 13:19 Encounter Reason: Follow up for chronic medical issues - The patient feels well with minor complaints, has decreased energy level and is sleeping well. Patient has been compliant with instructions. Current medication use End: 04-Feb-2015 14:08 : no side effects and compliant with dosing regimen. Patient sleeps 8 (broken) hours per night. Nutrition: balanced diet and supplemental vitamins. The medical issues the patient is following up for inc lude All identified problems below, high blood pressure and high cholesterol. blood pressure range : and weight :.Encounter Diagnosis: Hypercholesteremia, Hypertension, renal disease, Need for prophylactic vaccination (Renamed from Need for immunization against influenza), Lupus, Chronic kidney disease (CKD), stage 2 (mild), COPD, moderate, Tobacco abuse (305.1) [facility] Phone Encounter On: 11-Jan-2015 14:15 Encounter Diagnosis: Lupus End: 11-Jan-2015 14:28 [facility] Office Visit On: 10-Oct-2014 10:58 Encounter Reason: Follow up tests - Date: (09/19/14)., [ADDITIONAL REASON] Follow up for chronic medical issues - The patient feels well with minor complai End: 10-Oct-2014 16:13 nts, has decreased energy level and is sleeping well. Patient has been compliant with instructions. Current medication use: no side effects and compliant with dosing regimen. Patient sleeps 7 hours per night. Nutrition: balanced diet and supplemental vitamins. The medical issues the patient is following up for include All identified problems below, high blood pressure and high cholesterol. blood pressure range : and weight :. Encounter Diagnosis: COPD (496.), Hypertension with Renal Disease (403.90), Hypercholesteremia (272.0), Chronic Kidney Disease, Stage II (585.2), Irritable bowel syndrome (564.1), ANEMIA, UNSPECIFIED (285.9), ERYTHEMATOSUS, LUPUS (695.4), Sinus bradycardia, Therapeutic drug monitoring [facility] Office Visit On: 19-Sep-2014 13:53 Encounter Reason: Follow up hospital - Reason for ER visit: note: (chest pain was in hosp x2 weeks ago she was there 24 hrs). The patient feels well with minor complaints, has decreased energy level and is sleeping poorl End: 19-Sep-2014 14:38 y. Patient has been compliant with instructions. Current medication use: no side effects and compliant with dosing regimen. Patient sleeps 6 hours per night. Nutrition: balanced diet.Encounter Diagnosis: Closed fracture of lumbar vertebra without mention of spinal cord injury (805.4), DISPLACEMENT OF LUMBAR INTERVERTEBRAL DISC WITHOUT MYELOPATHY, Degenerative Disc Disease - Lumbar (722.52), Chest pain, Grieving Reaction (309.0), ANEMIA, UNSPECIFIED (285.9) [facility] Refill Request On: 30-Jul-2014 18:06 Encounter Diagnosis: Closed fracture of lumbar vertebra without mention of spinal cord injury (805.4) End: 30-Jul-2014 18:09 [facility] Office Visit On: 11-Jul-2014 11:03 Encounter Reason: Follow up for chronic medical issues - The patient feels well with minor complaints, has decreased energy level and is sleeping well. Patient has been compliant with instructions. Current medication use End: 11-Jul-2014 11:48 : no side effects and compliant with dosing regimen. Patient sleeps 7 hours per night. Nutrition: balanced diet and supplemental vitamins. The medical issues the patient is following up for include All identified problems below, cardiac issues, COPD and depression.Encounter Diagnosis: Hypercholesteremia (272.0), Hypertension with Renal Disease (403.90), ANEMIA, UNSPECIFIED (285.9), Chronic Kidney Disease, Stage II (585.2), COPD (496.), Sciatica of left side [facility] Phone Encounter On: 03-Jul-2014 16:16 Encounter Diagnosis: Leg pain End: 03-Jul-2014 16:20 [facility] Office Visit On: 03-Jul-2014 14:32 Encounter Reason: Leg pain - The leg pain began suddenly and has been occurring for 4 days. The symptoms have been occurring in a persistent pattern. The symptoms are described as a pain and are mild to moderate in elan End: 03-Jul-2014 15:15 rity. The symptoms occur on exertion. There is involvement of the left calf. There are no precipitating factors. Aggravating factors include exertion. There are no relieving factors.Encounter Diagnosis: Sciatica of left side, Leg pain [facility] Office Visit On: 25-May-2014 10:50 Encounter Reason: Follow up hospital - Reason for ER visit: note: (23 hr stay for chest pain and they found that IO was anemic). The patient feels well with minor complaints, has decreased energy level and is sleeping we End: 25-May-2014 12:05 ll. Patient has been compliant with instructions. Current medication use: no side effects and compliant with dosing regimen. Patient sleeps 6 hours per night.Encounter Diagnosis: COPD (496.), ANEMIA, UNSPECIFIED (285.9) [facility] Office Visit On: 07-Mar-2014 14:00 Encounter Reason: Follow up for chronic medical issues - The patient feels well with minor complaints, has decreased energy level and is sleeping poorly. Patient has been compliant with instructions. Current medication u End: 07-Mar-2014 15:02 se: no side effects and compliant with dosing regimen. Patient sleeps 7 hours per night. Nutrition: balanced diet and no supplemental vitamins & iron. The medical issues the patient is following up for include All identified problems below, cardiac issues, COPD, high blood pressure and high cholesterol. blood pressure range : and weight :., [ADDITIONAL REASON] Follow up tests - Date: (02/27/14 labs). Encounter Diagnosis: COPD (496.), Hypercholesteremia (272.0), Hypertension with Renal Disease (403.90), Chronic Kidney Disease, Stage II (585.2), ANEMIA, UNSPECIFIED (285.9), Osteopenia (733.90), Mitral valve failure [facility] Lab Order On: 27-Feb-2014 10:52 Encounter Diagnosis: ANEMIA, UNSPECIFIED (285.9) End: 27-Feb-2014 10:54 [facility] Office Visit On: 21-Feb-2014 15:27 Encounter Reason: Follow up tests - Date: (02/20/14 labs).Encounter Diagnosis: Need for prophylactic vaccination and inoculation against influenza (V04.81), ANEMIA, UNSPECIFIED (285.9), Need for vaccination against Streptococcus pneumoniae, End: 22-Feb-2014 14:59 Coronary Artery Disease (414.00) [facility] Phone Encounter On: 19-Feb-2014 18:16 Encounter Diagnosis: Abnormal blood chemistry (790.6) End: 19-Feb-2014 18:18 [facility] Office Visit On: 30-Nov-2013 13:40 Encounter Diagnosis: Mitral valve failure, Spinal stenosis of lumbar region (724.02) End: 30-Nov-2013 14:27 [facility] Office Visit On: 09-Nov-2013 13:10 Encounter Reason: Annual Medicare Exam - The patient had reviewed and updated the family history, medication/s, past medical history and social history. Yes the patient did have a mini mental status exam done today. The End: 09-Nov-2013 13:52 activities of daily living the patient needs help with are none. The patient has driven in past 6 months and put area rugs through house, but the patient has not had fecal incontinence, had urinary inco ntinence, missed or ran out of medications to soon, fallen in the past 6 months, gotten lost, has a medalert necklace or bracelet or put handrails in bathroom. The patient has completed the following pr eventative measures: PAP smear (?), mammography (2 yrs) and colonoscopy (still has 2 yrs yet). The patient does have durable power of consumer attorney and living will. The patient has noticed nothing from the eriatic depression scale. Other providers contributing to the patient's care are director cardiac., [ADDITIONAL REASON] Follow up Meds - The patient feels well with no complaints. Patient has been com pliant with instructions. Current medication use: no side effects. Patient sleeps 8 hours per night. Impact of disease: emotional impact-mild. Encounter Diagnosis: Annual Medicare Physical (V70.0), Grieving Reaction (309.0) [facility] Office Visit On: 26-Oct-2013 12:46 Encounter Reason: Follow up for chronic medical issues - The patient does not feel well, has decreased energy level and is sleeping poorly. Patient has been compliant with instructions. Current medication use: no side ef End: 26-Oct-2013 15:15 fects and compliant with dosing regimen. Patient sleeps 7 hours per night. Nutrition: inappropriate diet (small meals) and supplemental vitamins. The medical issues the patient is following up for inclu de All identified problems below, COPD, high blood pressure and high cholesterol. blood pressure range :.Encounter Diagnosis: Hypertension with Renal Disease (403.90), Depression (311), Chronic Kidney Disease, Stage II (585.2), Hypercholesteremia (272.0), COPD (496.), Coronary Artery Disease (414.00) [facility] Phone Encounter On: 18-Oct-2013 11:23 Encounter Diagnosis: Depression (311) End: 18-Oct-2013 11:24 [facility] Office Visit On: 26-Jul-2013 15:10 Encounter Diagnosis: Spinal stenosis of lumbar region (724.02) End: 26-Jul-2013 15:24 [facility] Office Visit On: 22-Feb-2013 13:31 Encounter Reason: Follow up for chronic medical issues - The patient feels well with minor complaints, has decreased energy level and is sleeping poorly. Patient has been compliant with instructions. Current medication u End: 22-Feb-2013 17:08 se: no side effects and compliant with dosing regimen. Patient sleeps 6 hours per night. Nutrition: balanced diet and supplemental vitamins. The medical issues the patient is following up for include Al l identified problems below, COPD and depression. blood pressure range : and weight :.Encounter Diagnosis: Need for prophylactic vaccination and inoculation against influenza (V04.81), Depression (311), COPD (496.), Hypertension with Renal Disease (403.90), ERYTHEMATOSUS, LUPUS (695.4), Hypercholesteremia (272.0), Spinal stenosis of lumbar region (724.02), Tobacco abuse (305.1), Chronic Kidney Disease, Stage II (585.2), Grieving Reaction (309.0) [facility] Office Visit On: 30-Dec-2012 11:48 Encounter Reason: Sleep Disturbance - The onset of the sleep disturbance has been sudden and has been occurring in a persistent pattern for weeks. The course has been constant. The sleep disturbance is described as sever End: 30-Dec-2012 12:39 e. The menstrual problem is characterized as restlessness.Encounter Diagnosis: Depression (311), Grieving Reaction (309.0) [facility] Office Visit On: 02-Nov-2012 11:14 Encounter Reason: Hypertension - The last clinic visit was 1 month(s) ago. Management changes made at the last visit include adding lisinopril is back on board -20mg qd for now. The patient describes this as improving (and dx with Stg 2 CKD ). End: 02-Nov-2012 12:14 Encounter Diagnosis: Hypertension with Renal Disease (403.90), Renal cyst (753.10), Chronic Kidney Disease, Stage II (585.2) [facility] Office Visit On: 31-Aug-2012 10:48 Encounter Reason: Follow up Hypertension - blood pressure range : (140/70's).Encounter Diagnosis: Hypertension with Renal Disease (403.90), Hyperventilating (786.01) End: 31-Aug-2012 11:18 [facility] Office Visit On: 15-Aug-2012 10:55 Encounter Reason: Follow up tests - Date: (08/10/12 labs).Encounter Diagnosis: Hypercholesteremia (272.0), Hypertension with Renal Disease (403.90), ERYTHEMATOSUS, LUPUS (695.4) End: 15-Aug-2012 11:35 [facility] Office Visit On: 08-Aug-2012 8:03 Encounter Reason: Follow up testsEncounter Diagnosis: Hypertension with Renal Disease (403.90) End: 08-Aug-2012 8:52 [facility] Office Visit On: 06-Jul-2012 15:13 Encounter Reason: Follow up for chronic medical issues - The patient feels well with minor complaints, has decreased energy level and is sleeping well. Patient has been compliant with instructions. Current medication use End: 06-Jul-2012 15:42 : no side effects and compliant with dosing regimen. Patient sleeps 8 hours per night. Nutrition: inappropriate diet and no supplemental vitamins & iron. The medical issues the patient is following up for include All identified problems below, high cholesterol and osteoporosis/osteopenia. weight :.Encounter Diagnosis: COPD (496.), Hypertension with Renal Disease (403.90), Hypercholesteremia (272.0), Osteopenia (733.90), ERYTHEMATOSUS, LUPUS (695.4), Weight loss (783.21), Dysphagia (787.20) [facility] Office Visit On: 20-Jun-2012 10:48 Encounter Reason: Follow up tests - Date: (06/03/12 labs).Encounter Diagnosis: Weight loss (783.21) End: 20-Jun-2012 11:06 [facility] Office Visit On: 03-Jun-2012 14:38 Encounter Reason: Weight Loss - The last clinic visit was 1 year(s) ago. No changes in management were made at the last visit. Patient reports weight loss of between 30 and 39 pounds. Symptoms include weight loss. Onset End: 03-Jun-2012 15:11 was gradual 1 year(s) ago. There is no known event that preceded symptom onset. The patient describes this as worsening. Associated symptoms include change in clothing fit, while associated symptoms do not include fatigue or depression. Note for Weight loss: not trying to loose weight. Daughter put her on a ensure a day and brought in food to her.Encounter Diagnosis: Weight loss (783.21), Stress Reaction (308.4), Tobacco abuse (305.1) [facility] Office Visit On: 04-Mar-2012 11:57 Encounter Reason: Follow up acute care visit - The patient feeling better since last seen (coughing yet but not as much as yesterday- still painful ribs but no worse.), has decreased energy level and improving. Patient h End: 04-Mar-2012 12:27 as been compliant with instructions. Current medication use: no side effects and compliant with dosing regimen. Patient sleeps 8 hours per night. Nutrition: inappropriate diet. The medical issues the lisa aragon is following up for include All identified problems below and URI (and fractured ribs from pnuemonia).Encounter Diagnosis: Cough (786.2), Bacterial pneumonia, unspecified (482.9) [facility] Office Visit On: 02-Mar-2012 15:46 Encounter Reason: Follow up acute care visit - The patient feeling better since last seen (the pain is not as bad as what it was). Patient has been compliant with instructions. Current medication use: no side effects and End: 02-Mar-2012 16:34 compliant with dosing regimen. Patient sleeps 8 hours per night. Nutrition: inappropriate diet.Encounter Diagnosis: Rib pain (786.50), Cough (786.2), Bacterial pneumonia, unspecified (482.9) [facility] Erroneous Entry On: 02-Mar-2012 8:14 Encounter Diagnosis: Unspecified Diagnosis End: 02-Mar-2012 8:30 [facility] Office Visit On: 01-Mar-2012 13:08 Encounter Reason: Cough - The onset of the cough has been 3 weeks ago.Encounter Diagnosis: Cough (786.2), COPD WITH (ACUTE) EXACERBATION (491.21), Rib pain (786.50) End: 01-Mar-2012 13:47 [facility] Office Visit On: 18-Jan-2012 10:20 Encounter Reason: Follow up tests - Date:. Note for Follow up tests: esophagramEncounter Diagnosis: Dysphagia (787.20), Chest pain (786.59) End: 18-Jan-2012 11:18 [facility] Phone Encounter On: 11-Jan-2012 10:53 Encounter Diagnosis: Unspecified Diagnosis End: 11-Jan-2012 10:56 [facility] Office Visit On: 31-Dec-2011 13:34 Encounter Reason: UTI - The urinary symptoms are described as painful urination, frequency, urgency, hesitancy and burning. The symptoms have been occurring for 4 days and have been ??constant. The urine is described as End: 31-Dec-2011 14:58 clear. The symptoms have been associated with abdominal pain and low back pain. There is a medical history of recurrent urinary tract infections, while there is no history of diabetes. The patient denie s the use of oral contraceptives, antibiotics, hormone replacement therapy or pyridium/uristat., [ADDITIONAL REASON] Chest Pain - The last clinic visit was 1 day(s) ago. No changes in management we re made at the last visit. Symptoms include chest pain. The pain is located in the substernal area. The pain radiates to the neck and jaw. The patient describes the pain as aching, dull and pressure-lik e. Onset was sudden 1 day(s) ago. There is no known event that preceded symptom onset. The symptoms occur constantly. The patient describes this as moderate in severity and improving. Symptoms are exace rbated by lying down. Current treatment includes aspirin. Encounter Diagnosis: Dysuria (788.1), Chest pain (786.59), Dysphagia (787.20), Need for prophylactic vaccination and inoculation against influenza (V04.81) [facility] Office Visit On: 16-Nov-2011 11:30 Encounter Reason: Follow up tests - Date: (11/06/11 cx labs).Encounter Diagnosis: BLADDER RETENTION OF URINE (788.2), Abnormal Urine (791.9), Nausea (787.02) End: 16-Nov-2011 12:00 [facility] Office Visit On: 06-Nov-2011 9:00 Encounter Reason: Urinary problems - The onset of the urinary problems has been variable and they have been occurring in a persistent pattern for 4 days. The course has been constant. The urinary problems are described a End: 06-Nov-2011 12:52 s moderate. The urinary problem is characterized as hesitancy and incontinence of urine. There has been associated back pain. Past medical history : kidney stones.Encounter Diagnosis: BLADDER RETENTION OF URINE (788.2) [facility] Office Visit On: 26-Oct-2011 11:49 Encounter Reason: Nausea - The last clinic visit was 1 week(s) ago. No changes in management were made at the last visit. Symptoms include nausea, while symptoms do not include emesis. Symptom onset was sudden month(s) a End: 26-Oct-2011 12:08 go (but worse past week -- i get nauseated when sugar drps -- when get heated , with medication-- she is bronzed from our recently 99 degree weather she has to keep up with water ). There is no known e vent that preceded symptom onset. The symptoms occur constantly. The patient describes this as moderate in severity and worsening. Symptoms are not exacerbated by drinking fluids or eating solids. Sympt oms are not relieved by drinking fluids or eating food. Associated symptoms include constipation, while associated symptoms do not include diarrhea, dehydration or dizziness. The patient is not currentl y being treated for this problem. Previous presentation included nausea. This problem has not been previously treated., [ADDITIONAL REASON] UTI - The urinary symptoms are described as burning. The symptoms have been occu rring for 1 week and have been constant. The urine is described as clear. The symptoms have been associated with nausea and low back pain, while the symptoms have not been associated with chills or andrews rrhea. There is no medical history of diabetes, current , vaginitis or kidney stones. The patient denies the use of oral contraceptives, antibiotics, hormone replacement therapy or pyridium/uristat. Encounter Diagnosis: Dysuria (788.1), Nausea (787.02) [facility] Office Visit On: 28-Aug-2011 14:58 [facility] End: 31-Aug-2011 18:27 Office Visit On: 12-Aug-2011 13:04 Encounter Reason: Follow up for chronic medical issues - The patient feels well with minor complaints, has decreased energy level and is sleeping well. Patient has been compliant with instructions. Current medication use End: 12-Aug-2011 16:40 : no side effects and compliant with dosing regimen. Patient sleeps 8 hours per night. Nutrition: inappropriate diet and no supplemental vitamins & iron. The medical issues the patient is following up for include All identified problems below, high cholesterol and osteoporosis/osteopenia. weight :.Encounter Diagnosis: Hypertension with Renal Disease (403.90), Hypercholesteremia (272.0), COPD (496.), ERYTHEMATOSUS, LUPUS (695.4), Weight loss (783.21) [facility] Office Visit On: 15-Jun-2011 17:30 Encounter Diagnosis: Irritable bowel syndrome (564.1) End: 15-Jun-2011 17:31 [facility] Office Visit On: 10-Jun-2011 16:37 Encounter Diagnosis: Abdominal Pain,Unspecified Site (789.00) End: 10-Jun-2011 16:39 [facility] Office Visit On: 01-Jun-2011 11:01 Encounter Diagnosis: BLADDER RETENTION OF URINE (788.2), Cystitis,Acute (595.0), Abnormal Urine (791.9), Hematuria (599.7) End: 01-Jun-2011 11:22 [facility] Office Visit On: 29-Apr-2011 10:41 Encounter Reason: utiEncounter Diagnosis: BLADDER RETENTION OF URINE (788.2), Cystitis,Acute (595.0) End: 29-Apr-2011 11:08 [facility] Office Visit On: 15-Apr-2011 13:34 Encounter Diagnosis: Unspecified Diagnosis End: 15-Apr-2011 13:38 [facility] Annotation/Addendum On: 14-Apr-2011 13:23 Encounter Diagnosis: Cystitis,Acute (595.0) End: 14-Apr-2011 13:25 [facility] Office Visit On: 09-Apr-2011 11:27 Encounter Reason: Follow up tests - Date: (04/07/11 labs).Encounter Diagnosis: Abnormal Urine (791.9), Hypercholesteremia (272.0) End: 09-Apr-2011 12:27 [facility] Office Visit On: 02-Apr-2011 12:57 Encounter Reason: Follow up for chronic medical issues - The patient feels well with minor complaints, has decreased energy level and is sleeping poorly. Patient has been compliant with instructions. Current medication u End: 02-Apr-2011 13:29 se: no side effects and compliant with dosing regimen. Patient sleeps 6 hours per night. Nutrition: inappropriate diet and supplemental vitamins. The medical issues the patient is following up for inclu de All identified problems below, COPD, high blood pressure and high cholesterol. weight :.Encounter Diagnosis: Actinic keratosis (702.0), Irritable bowel syndrome (564.1), Hypertension with Renal Disease (403.90), COPD (496.), Spinal stenosis of lumbar region (724.02) [facility] Office Visit On: 13-Jan-2011 10:18 Encounter Reason: Injections - The medication the patient is here to receive is other (flu shot).Encounter Diagnosis: Need for prophylactic vaccination and inoculation against influenza (V04.81) End: 13-Jan-2011 10:21 [facility] Office Visit On: 01-Dec-2010 12:50 Encounter Reason: Follow up for chronic medical issues - The patient feels well with minor complaints, has good energy level and is sleeping poorly. Patient has been compliant with instructions. Current medication use: c End: 01-Dec-2010 14:02 ompliant with dosing regimen. Patient sleeps 7 hours per night. Nutrition: balanced diet and supplemental vitamins. The medical issues the patient is following up for include All identified problems bel ow, COPD, high blood pressure and high cholesterol. weight :.Encounter Diagnosis: Cervical strain (847.0), Hypertension with Renal Disease (403.90), Hypercholesteremia (272.0), Irritable bowel syndrome (564.1) [facility] Office Visit On: 10-Nov-2010 12:42 Encounter Reason: Nausea - The onset of the nausea has been sudden and has been occurring in an intermittent pattern for 10 days. The course has been decreasing. The nausea has no relationship to meals. The symptoms have End: 10-Nov-2010 13:16 no aggravating factors. The symptoms are relieved by antacids (last visit w/u was labs - here for results and rx nexuim but couldnt get it-- so took prilosec otc nad it did help 90% ). There has been n o associated abdominal pain, diarrhea or vomiting., [ADDITIONAL REASON] Follow up tests - Date: (labs 10-28-10). , [ADDITIONAL REASON] Rectal pressure - feels like I have to have a bm but I cant go and it feels like it is trying to come out and when that goes on I have this weird feeling in my back Encounter Diagnosis: Nausea (787.02), Constipation(564.00) [facility] Phone Encounter On: 30-Oct-2010 10:28 Encounter Diagnosis: Irritable bowel syndrome (564.1) End: 30-Oct-2010 10:31 [facility] Office Visit On: 28-Oct-2010 10:49 Encounter Reason: Nausea - The onset of the nausea has been sudden and has been occurring in a persistent pattern for 10 days. The course has been constant. The nausea has no relationship to meals. The symptoms have no a End: 28-Oct-2010 11:34 ggravating factors. The symptoms have no relieving factors. There has been no associated abdominal pain, diarrhea or vomiting.Encounter Diagnosis: Nausea (787.02), Constipation(564.00) [facility] Office Visit On: 25-Sep-2010 12:19 Encounter Reason: Follow up acute care visit - The patient feeling better since last seen. Patient has been compliant with instructions. Current medication use: no side effects and compliant with dosing regimen. Patient End: 25-Sep-2010 13:17 sleeps 7 hours per night. Nutrition: balanced diet., [ADDITIONAL REASON] Back pain - The onset of the pain has been sudden and has been occurring in a pe rsistent (after i was out pusting around in yard - i felt a pulll but cant rid of it ) pattern for 1 week. The course has been constant. The pain is characterized as stabbing. The pain is described as b eing located in the upper back (lt). The pain does not radiate. There are no precipitating factors. The symptoms are aggravated by prolonged standing. The symptoms have no relieving factors. There has been no associated back stiffness. Encounter Diagnosis: Muscle spasm (728.85), BRONCHITIS, NOT SPECIFIED ACUTE OR CHRONIC (490.), Hypoxemia (799.02), COPD WITH (ACUTE) EXACERBATION (491.21) [facility] Office Visit On: 15-Sep-2010 10:25 Encounter Reason: Follow up hospital - Reason for ER visit: note: (bronchial tube infection). The patient feels well with minor complaints, has decreased energy level and is sleeping poorly. Patient has been compliant wi End: 15-Sep-2010 16:54 th instructions. Current medication use: no side effects and compliant with dosing regimen. Patient sleeps 6 hours per night. Nutrition: inappropriate diet. The hospital results of the chest X-ray (bronchial infection ) wereEncounter Diagnosis: Irritable bowel syndrome (564.1), Hypertension with Renal Disease (403.90), Hypoxemia (799.02), BRONCHITIS, NOT SPECIFIED ACUTE OR CHRONIC (490.), COPD WITH (ACUTE) EXACERBATION (491.21) [facility] Annotation/Addendum On: 28-Aug-2010 8:12 Encounter Diagnosis: Abdominal Pain,Unspecified Site (789.00) End: 28-Aug-2010 8:19 [facility] Annotation/Addendum On: 27-Aug-2010 8:52 Encounter Diagnosis: Abdominal Pain,Unspecified Site (789.00) End: 27-Aug-2010 8:56 [facility] Annotation/Addendum On: 27-Aug-2010 8:44 Encounter Diagnosis: Abdominal Pain,Unspecified Site (789.00) End: 27-Aug-2010 8:46 [facility] Annotation/Addendum On: 27-Aug-2010 8:34 Encounter Diagnosis: Abdominal Pain,Unspecified Site (789.00) End: 27-Aug-2010 8:43 [facility] Office Visit On: 25-Aug-2010 14:31 [facility] End: 25-Aug-2010 15:05 Office Visit On: 25-Aug-2010 13:33 Encounter Reason: Follow up for chronic medical issues - The patient does not feel well, has decreased energy level and is sleeping well. Patient has been compliant with instructions. Current medication use: no side effe End: 25-Aug-2010 14:19 cts and compliant with dosing regimen. Patient sleeps 7 hours per night. Nutrition: inappropriate diet and no supplemental vitamins & iron. The medical issues the patient is following up for include All identified problems below, COPD, high blood pressure, high cholesterol and osteoporosis/osteopenia. weight :.Encounter Diagnosis: COPD (496.), Hypoxemia (799.02), Hypercholesteremia (272.0), Hypertension with Renal Disease (403.90), Abnormal Chest X-Ray (793.99), Degenerative Disc Disease - Lumbar (722.52), Closed fracture of lumbar vertebra without mention of spinal cord injury (805.4) [facility] Office Visit On: 22-Aug-2010 11:49 Encounter Diagnosis: Abnormal Chest X-Ray (793.99), COPD WITH (ACUTE) EXACERBATION (491.21) End: 22-Aug-2010 11:56 [facility] Office Visit On: 22-Aug-2010 11:05 Encounter Reason: Follow up tests - Diagnostic tests include X-Ray (chest x-ray 08-14-10).Encounter Diagnosis: COPD (496.) End: 22-Aug-2010 11:44 [facility] Annotation/Addendum On: 11-Aug-2010 11:28 Encounter Reason: Dizziness/ - The onset of the dizziness/ has been sudden and has been occurring in a persistent pattern for 6 days. The course has been increasing. The dizziness/ is characterized as feeling in the head End: 11-Aug-2010 13:00 . The dizziness/ is precipitated by position change, head turning and standing suddenly. There has been no associated diabetes mellitus, diplopia, loss of balance, nausea, syncope or tinnitus. The dizzi ness/ is relieved by keeping head still and laying down.Encounter Diagnosis: Vertigo (780.4), Dysuria (788.1) [facility] Office Visit On: 25-Jul-2010 12:44 Encounter Reason: Nurse procedure visit - The symptoms have been associated with other ([employer]ERN[employer] PULSE [facility]).Encounter Diagnosis: COPD (496.), Hypoxemia (799.02) End: 25-Jul-2010 13:21 [facility] Office Visit On: 21-Jul-2010 13:03 Encounter Diagnosis: COPD (496.) End: 21-Jul-2010 13:04 [facility] Office Visit On: 11-Jul-2010 11:09 Encounter Reason: Follow up acute care visit - The patient feeling better since last seen and feels the same. Patient has been compliant with instructions. Current medication use: no side effects. Patient sleeps 9 hours End: 11-Jul-2010 12:14 per night. Impact of disease: emotional impact-mild, impact on recreation-mild and impact on relationships-mild. Nutrition: balanced diet and supplemental vitamins. The medical issues the patient is following up for include asthma. Encounter Diagnosis: Hypoxemia (799.02), Bacterial pneumonia, unspecified (482.9), COPD (496.) [facility] Office Visit On: 27-Jun-2010 11:21 Encounter Reason: Follow up hospital - Reason for ER visit: pneumonia. The patient feels well with minor complaints, has decreased energy level and is sleeping poorly. Patient has been compliant with instructions. Stalin End: 27-Jun-2010 12:34 t medication use: no side effects and compliant with dosing regimen. Patient sleeps 6 hours per night. Nutrition: inappropriate diet and no supplemental vitamins & iron.Encounter Diagnosis: COPD WITH (ACUTE) EXACERBATION (491.21), Bacterial pneumonia, unspecified (482.9), Hypoxemia (799.02) [facility] Office Visit On: 13-Jun-2010 13:14 Encounter Reason: Cold Symptoms - The last clinic visit was 3 day(s) ago. No changes in management were made at the last visit. Symptoms include sneezing, nasal congestion, runny nose, postnasal drainage, hoarseness, dry End: 13-Jun-2010 14:27 cough and headache. Onset was gradual 3 day(s) ago. Onset followed exposure at home to someone with upper respiratory symptoms (neighbor). The symptoms occur constantly. The patient describes this as m oderate in severity and worsening. Symptoms are exacerbated by lying down. Symptoms are relieved by oral fluids. Associated symptoms include wheezing, shortness of breath, fatigue, weakness, nausea, vom iting, diarrhea, fever and chills. Current treatment includes rest.Encounter Diagnosis: BRONCHITIS, NOT SPECIFIED ACUTE OR CHRONIC (490.), COPD WITH (ACUTE) EXACERBATION (491.21) [facility] Office Visit On: 08-May-2010 10:55 Encounter Reason: Skin lesion - The skin lesion appeared gradually and has been occurring for months. It has been increasing in size. The skin lesion is characterized as red and raised above the skin. The skin lesion is End: 08-May-2010 12:10 located on the face. There has been no associated itching or pain.Encounter Diagnosis: Lesion-Unknown behavior (238.2) [facility] Office Visit On: 23-Apr-2010 12:04 Encounter Reason: Follow up for chronic medical issues - The patient feels well with minor complaints, has decreased energy level and is sleeping well. Patient has been compliant with instructions. Current medication use End: 23-Apr-2010 13:32 : no side effects and compliant with dosing regimen. Patient sleeps 7 hours per night. Nutrition: balanced diet and supplemental vitamins. The medical issues the patient is following up for include All identified problems below, depression, high blood pressure and high cholesterol.Encounter Diagnosis: Spinal stenosis of lumbar region (724.02), Hypertension with Renal Disease (403.90), Hypercholesteremia (272.0), SYMPTOM, ABNORMALITY, GAIT (781.2), Osteopenia (733.90), COPD (496.), Lesion-Unknown behavior (238.2) [facility] Office Visit On: 24-Mar-2010 10:35 Encounter Reason: Follow up tests - Diagnostic tests include MRI (03/12)., [ADDITIONAL REASON] Follow up, Laboratory Test Results - Date: (03/12/10). Encounter Diagnosis: SYMPTOM, ABNORMALITY, GAIT (781.2), SOB (786.05), Parasthesia (782.0), End: 24-Mar-2010 11:20 Spinal stenosis of lumbar region (724.02) [facility] Annotation/Addendum On: 11-Mar-2010 14:19 Encounter Diagnosis: Hypertension with Renal Disease (403.90) End: 11-Mar-2010 14:25 [facility] Office Visit On: 10-Mar-2010 11:23 Encounter Reason: unsteady gait - The onset of the unsteady gait has been gradual. There has been associated weakness, while there has been no associated falling down, vertigo or paresthesias in legs.Encounter Diagnosis: End: 10-Mar-2010 13:19 SYMPTOM, ABNORMALITY, GAIT (781.2), SOB (786.05), Parasthesia (782.0) [facility] Office Visit On: 04-Mar-2010 10:19 Encounter Reason: Injections - The medication the patient is here to receive is other (flu vaccine).Encounter Diagnosis: Need for prophylactic vaccination and inoculation against influenza (V04.81) End: 06-Mar-2010 7:45 [facility] Office Visit On: 09-Jan-2010 10:31 Encounter Reason: Follow up, Laboratory Test Results - Date: (01/02/10). , [ADDITIONAL REASON] Follow up for chronic medical issues - The patient does not feel well ,has decre End: 09-Jan-2010 15:42 ased energy level and is sleeping well. Patient has been compliant with instructions. Current medication use: experiencing side effects and compliant with dosing regimen. Patient sleeps 8 hours per nigh t. Nutrition: inappropriate diet and supplemental vitamins. The medical issues the patient is following up for include All identified problems below ,cardiac issues ,COPD and high blood pressure. Encounter Diagnosis: Hypertension with Renal Disease (403.90), Hypercholesteremia (272.0), Degenerative Disc Disease - Lumbar (722.52), Irritable bowel syndrome (564.1), Peripheral vascular disease (443.9), Spinal stenosis of lumbar region (724.02) [facility] Office Visit On: 09-Oct-2009 8:54 Encounter Reason: Follow up, Laboratory Test Results - Date: (09/18/09). , [ADDITIONAL REASON] Follow up for chronic medical issues - The patient feels well with minor complai End: 09-Oct-2009 13:02 nts (Oh the Lupus and the new medication has me drained that Dr. Montoya put me on.). Patient has been compliant with instructions. Current medication use: experiencing side effects (Lupus medication t hat Dr. Montoya has me on is like a chemo medication has me exhausted.). Patient sleeps 8 hours per night.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
--- OUTSIDE RECORDS SUMMARY | 2018-05-23 13:30 | XMS RPT_ITS | Continuity of Care Document ---
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 of GI bleed who presents to the [facility] ED on 07/26/14 w/ complaint of acute [...] 4 Views Result: Comments: See Note; NOTES: [facility] Imaging Services [address] [place] [address] Radiology Report MR#: [id number] Acct: [id number] Name: KILEY DREW Jada Rep #: [id number] : 1935 F 78 From: Toy Loja MD PCP: Priya Jimenez DO Status: REG CLI Study: L/S Spine Min 4 Views Date of Exam: 07/03/14 Exam# [id number] Ordering Dr: Kenn Aragon STUDY: X-RAY - [...] MD at 18:34 EDT , Service support [phone], Fax RAD/L/S Spine Min 4 Views IMPRESSION: Stable compression deformity of L5. Stable compression deformity of T11. Electronically Signed: Toy Loja MD at 18:34 EDT , Service support [phone], CC: Kenn Aragon; Priya Jimenez DO Bakery Helper: Signed 11-May-2014 Chest 1 View (Portable) Result: Comments: See Note; NOTES: [facility] Imaging Services [address] [place] [address] Radiology Report MR#: [id number] Acct: [id number] Name: KILEY DREW Rep #: [id number] : 1935 F 78 From: Ester Bautista MD PCP: Priya Jimenez DO Status: REG ER Study: Chest 1 View (Portable) Date of Exam: 05/11/14 Exam# [id number] Ordering Dr: Moncho Sahu MD STUDY: X-RAY [...] at 14:05 EST Tel , Service support [phone], RAD/Chest 1 View (Portable) IMPRESSION: There are stable findings. Electronically Signed: Ester Bautista MD at 14:05 EST , Service support [phone], CC: Priya Jimenez DO; Moncho Sahu MD Bakery Helper: Signed 23-Apr-2014 Chest PA and Lateral Result: Comments: See Note; NOTES: [facility] Imaging Services [address] [place] [address] Radiology Report MR#: [id number] Acct: [id number] Name: KILEY DREW Rep #: [id number] : 1935 F 78 From: Edmundo Zhou MD PCP: Priya Jimenez DO Status: REG CLI Study: Chest PA and Lateral Date of Exam: 04/23/14 Exam# [id number] Ordering Dr: Sincere Castillo MD STUDY: X-RA [...] Danny Zhou MD at 14:32 EST Tel [phone], Service support [phone], CC: Sincere Castillo MD; Priya Jimenez DO Bakery Helper: Signed 17-Apr-2014 Pulmonary Function Report Comp Result: Comments: See Note; NOTES: [facility] Pulmonary Services/Neurology [address] [place] [address] Pulmonary Function Test (Comp) MR#: [id number] Acct: [id number] Name: KILEY TEMPLE Rep #: [id number] : 1935 78 From: Sincere Castillo MD Referring Dr: Sincere Castillo MD Status: REG CLI Ordering Dr: Sincere Castillo MD Date: 04/13/14 Location: [facility] Sex: F C Date: 03/26 [...] Dictated: 04/14/14 1110 Date Transcribed: 04/15/14 0705 Bakery Helper: CAROL ANN Signed 31-Jan-2014 Echocardiogram, Limited Study Result: Comments: See Note; NOTES: [facility] Cardiovascular Services [address] [place] [address] Echo, Limited Study 01/31/14 1347 MR#: [id number] Acct: [id number] Name: KILEY TEMPLE Rep #: [id number] : 1935 78 From: Pete Castro MD [...] Dictated: 01/31/14 1347 Date Transcribed: 01/31/14 1539 Bakery Helper: Signed 13-Nov-2013 Echocardiogram Complete Result: Comments: See Note; NOTES: [facility] Cardiovascular Services [address] [place] [address] Echo Complete 11/13/13 1321 MR#: [id number] Acct: [id number] Name: REGAN DREW RA Rep #: [id number] : 1935 78 From: Kaden Barboza MD Attending Dr: Tamra AVILA,Kaden Status: REG CLI Ordering Dr: Kaden Barboza MD Date: 11/13/13 Location: [facility] Sex: F C Admitted: Procedur e This [...] Physician: Kaden Barboza Performed By: Zee Joya [facility] : Kaden Barboza MD; Priya Jimenez DO Date Dictated: 11/13/13 1321 Date Transcribed: 11/13/13 1631 Bakery Helper: Signed 27-Sep-2013 Dexa Bone Density Study (HP) Result: Comments: See Note; NOTES: [facility] Imaging Services [address] [place] [address] Bone Density Report MR#: [id number] Acct: [id number] Name: KILEY DREW Jada Rep #: [id number] : 1935 F 78 From: Kit Castillo MD PCP: Priya Jimenez DO Status: [facility] Study: Dexa Bone Density Study (HP) Date of Exam: 09/27/13 Exam# [id number] Ordering Dr: Terrie Jimenez DO STUDY: DUAL [...] a moderate fracture risk. On the lateral media account executive view, there is evidence of increased kyphosis. [...] National Osteoporosis Foundation http://www.nof.org Electronically Signed: Kit Catsillo MD at 14:27 EDT Tel [phone], Service support [phone], CC: Priya Jimenez DO Bakery Helper: Signed 16-Aug-2013 Kidney and Bladder Result: Comments: See Note; NOTES: [facility] Imaging Services [address] [place] [address] Ultrasound Report MR#: [id number] Acct: [id number] Name: KILEY DREW Rep #: [id number] : 1935 F 77 From: Kit Castillo MD PCP: Priya Jimenez DO Status: REG CLI Study: Kidney and Bladder Date of Exam: 08/16/13 Exam# [id number] Ordering Dr: Ross Mello MD STUDY: RENAL [...] Kit Castillo MD at 9:30 EDT Tel [phone], Service sup port [phone], CC: Priya Jimenez DO; Ross Mello MD Bakery Helper: Signed Immunization Name Dates Details Influenza (3 years and up) on: 03-Jan-2009 Comments: Lot #:[id number] date: mount given: 0.5 mlRoute: IMSite [...] Active Vital Signs Date Test Result Details 10-Vnm-273583:21 Comments: hearing wnlDr. Chambers and had glaucoma [...] W/Diff, Automated Comments: Reason for Laboratory Test .[facility] [address] [place], [address] Absolute Lymph 0.86 {X10_3/ul} (Normal) [...] 4.2-5.4 WBC 8.0 K/mm3 (Normal) Range: 4.4-11.0 85-Lkq-79428:45 Comprehensive Metabolic Profil Comments: [facility] [address] [place], [address] GAP 6 (Normal) Range: 5-15 [...] A.D.A. criteria.Please note revised GLUCOSE reference range mxuyugqzl24/02/2018. :45 Ferritin Comments: [facility] [address] [place], [place], [address] FERRITIN 261 ng/mL (Abnormal) Range: 8-252 :45 Iron+Iron Binding Capacity Comments: [facility] [address] [place], [address] IRON SATURATION 19.1 % (Normal) Range: 15.0-55.0 IRON 63 ug/dL (Normal) Range: 50-170 TIBC 329 ug/dL (Normal) Range: 250-450 :00 CBC W/Diff, Automated Comments: [facility] [address] [place], [address] Absolute Lymph 1.19 {X10_3/ul} (Normal) [...] Range: 4.4-11.0 25-Oct-20170:00 Comprehensive Metabolic Profil Comments: [facility] [address] [place], [place], [address] GAP 5 (Normal) Range: 5-15 CO2 43.0 [...] Comments: Please note revised GLUCOSE reference range azwnjbots14/02/2018. 25-Oct-20170:00 Lipid Profile Comments: [facility] [address] [place], [place], [address] VLDL 12 mg/dL (Normal) Range: 5-40 LDL [...] High Risk 25-Oct-20170:00 Microalb:Creat Ratio,Random UR Comments: [facility] [address] [place], [id number] MALB:CREAT 38.8 {mg/g_CRE} (Abnormal) MICROALBUMIN,UR 27.3 mg/L (Normal) UR CREAT 70.40 mg/dL (Normal) :00 Miscellaneous Lab Procedure Comments: Test(s) Ordered: [id number] calcifediol room temp/ serum or [facility] [address] [place], [id number] [facility] Comments: TEST RESULT LIMITSCalcitriol (1,25 di-OH Vit D) 42.8 pg/mL 19.9 - 79.3 TESTING [facility]FORMED AT [facility] (Normal) NAL REPORT ON FILE IN LAB CONTAINS ADDITIONAL TEST SITE INFORMATION. TEST 25-Oct-20170:00 Thyroid Stim Hormone (TSH) Comments: [facility] [address] [place] [place], [address] TSH 2.95 {uIU/mL} (Normal) Range: 0.358-3.74 25-Oct-20170:00 Urinalysis, Complete Comments: How was Urine Obtained? CLEAN [facility] [address] [place], [address] HYALINE CAST 0-5 SEEN {/lpf} (Normal) [...] 25-Oct-20170:00 Vitamin B12 627 pg/mL (Normal) Comments: [facility] [address] [facility] [address] [place], [place], [address] Range: 211-911 19-Vbw-66204:00 CBC W/Diff, Automated Comments: [facility] [address] [place], [place], [address] Absolute Lymph 1.16 {X10_3/ul} (Normal) Range: 0.83-4.51 [...] 4.2-5.4 WBC 9.0 K/mm3 (Normal) Range: 4.4-11.0 19-Phy-29485:00 Vitamin B12 851 pg/mL (Normal) Comments: [facility] [address] [facility] [address]. [place], [place], [address] Range: 211-911 60-Ytx-269036:33 CBC W/Diff, Automated Comments: [facility] [address] [facility]. [place], [place], [address] Absolute Lymph 1.38 {X10_3/ul} (Normal) Range: 0.83-4.51 [...] 4.2-5.4 WBC 8.4 K/mm3 (Normal) Range: 4.4-11.0 40-Roc-705813:20 Basic Metabolic Profile (BMP) Comments: [facility] [address] [place], [address] GAP Test not performed [...] 7-18 GLU 103 mg/dL (Normal) Range: 70-110 9-Txg-761225:00 Magnesium Comments: [facility] [address] [place], [address](798) MG 1.8 mg/dL (Normal) Range: 1.8-2.4 8-Vag-366463:00 Potassium Comments: [facility] [address] [place], [phone](822) K 3.4 mmol/L (Abnormal) Range: 3.5-5.1 3-Lwd-583908:18 CBC W/Diff, Automated Comments: [address] [place], [address]) Absolute Lymph 1.22 {X10_3/ul} (Normal) Range: 0.83-4.51 [...] 4.2-5.4 WBC 8.9 K/mm3 (Normal) Range: 4.4-11.0 5-Oda-957005:05 Comprehensive Metabolic Profil Comments: Reason for Laboratory Test .[facility] [address] [place], [address] GAP 3 (Abnormal) Range: 5-15 CO2 40.0 [...] 7-18 GLU 93 mg/dL (Normal) Range: 70-110 5-Hsc-085756:05 Ferritin Comments: Reason for Laboratory Test .[facility] [address] [facility] [address] [place], [place], [address] FERRITIN 311 ng/mL (Abnormal) Range: 8-252 4-Oqw-946059:05 Iron+Iron Binding Capacity Comments: Reason for Laboratory Test .[facility] [address] [place], [place], [address] IRON SATURATION 16.5 % (Normal) Range: 15.0-55.0 IRON 53 ug/dL (Normal) Range: 50-170 TIBC 322 ug/dL (Normal) Range: 250-450 99-Uaj-319454:36 CBC W/Diff, Automated Comments: [facility] [address] [facility] [address] [place], [place], [address] Absolute Lymph 1.34 {X10_3/ul} (Normal) Range: 0.83-4.51 [...] 4.2-5.4 WBC 8.1 K/mm3 (Normal) Range: 4.4-11.0 95-Wgk-299071:36 Comprehensive Metabolic Profil Comments: Reason for Laboratory Test [facility] [address]em[address] [place], [address] GAP 8 (Normal) Range: 5-15 CO2 38.0 [...] 7-18 GLU 80 mg/dL (Normal) Range: 70-110 27-Reh-688030:36 Ferritin Comments: Reason for Laboratory Test [facility] [address]ixmd[address] [facility] [address] [place], [place], [phone]) FERRITIN 249 ng/mL (Normal) Range: 8-252 89-Gva-708522:36 Iron Comments: Reason for Laboratory Test [facility] [address]emo[address] [facility] [address] [place], [place], [address] IRON 69 ug/dL (Normal) Range: 50-170 8-Ork-389722:40 CBC W/Diff, Automated Comments: [facility] [address] [facility] [place], [place], [address] Absolute Lymph 1.03 {X10_3/ul} (Normal) Range: 0.83-4.51 [...] 4.2-5.4 WBC 8.9 K/mm3 (Normal) Range: 4.4-11.0 4-Gsk-490075:40 Comprehensive Metabolic Profil Comments: Reason for Laboratory Test [facility] [address]rirxpa9404 [facility] [place], [place], [address] GAP 3 (Abnormal) Range: 5-15 CO2 40.0 [...] 7-18 GLU 71 mg/dL (Normal) Range: 70-110 7-Egs-475577:40 Ferritin Comments: Reason for Laboratory Test [facility] [address] [place], [place], [address] FERRITIN 178 ng/mL (Normal) Range: 8-252 1-Zvp-374626:40 Iron Comments: Reason for Laboratory Test [facility] [address] [place], [place], [address] IRON 59 ug/dL (Normal) Range: 50-170 52-Eul-766532:12 CALCIFIDIOL (28193) VIT D 25 Comments: PATIENT WAS FASTINGPERFORMED BY: [facility] Jkpsyt3626 [facility] [id number] Vitamin D, 25-Hydroxy 21.8 ng/mL (Abnormal) Range: 30.0-100.0 Comments: Vitamin D deficiency has been defined by the [place] ofMedicine and an Endocrine Society practice guideline as alevel of serum 25-OH vitamin D less than 20 ng/mL (1,2).The Endocrine Society went on to further define vitamin Dinsufficiency as a level between 21 and 29 ng/mL (2).1. IOM ([place] of Medicine). 2010. Dietary reference intakes for calcium and D. [place]: The National Academies Press.2. Armond MF, Rosa [place], Kyler ANDREWS, et al. Evaluation, treatment, and prevention of vitamin D deficiency: an Endocrine Society clinical practice guideline. JCEM. 2010; 96(7):0661-30. 29-Ura-439180:12 VITAMIN B-12 (CYANOCOBALAMIN) Comments: PATIENT WAS FASTINGPERFORMED BY: [employer] Payhlt1720 [facility] [id number] (98705) Vitamin B12 517 pg/mL (Normal) Range: 211-946 13-Mff-209863:12 TSH (02179) Comments: PATIENT WAS FASTINGPERFORMED BY: [employer]6370 [facility] [id number] TSH 1.500 {uIU/mL} (Normal) Range: 0.450-4.500 :12 METABOLIC PANEL, COMPREHENSIVE Comments: PATIENT WAS FASTINGPERFORMED BY: [employer] Yotnej5790 [facility] [id number] (02368) ALT (SGPT) 14 [iU]/L (Normal) Range: 0-32 [...] Glucose, Serum 83 mg/dL (Normal) Range: 65-99 08-Tyk-734843:12 LIPID PANEL (41471) Comments: PATIENT WAS FASTINGPERFORMED BY: [facility] Ap[address]xsd[address] [place] [id number] LDL/HDL Ratio 1.0 {ratio_units} (Normal) Range: 0.0-3.2 Comments: LDL/HDL Ratio Men Women 1/2 Avg.Risk 1.0 1.5 Av g.Risk 3.6 3.2 2X Avg.Risk 6.2 5.0 3X Avg.Risk 8.0 6.1 LDL Cholesterol Calc 77 mg/dL (Normal) Range: 0-99 VLDL Cholesterol Pete 18 mg/dL (Normal) Range: 5-40 HDL Cholesterol 78 mg/dL (Normal) Triglycerides 89 mg/dL (Normal) Range: 0-149 Cholesterol, Total 173 mg/dL (Normal) Range: 100-199 76-Rgl-750699:09 CBC W/Diff, Auto - EPLAB Comments: At [facility] Outpatient [facility] Medical Oncologypatients receive CBC w/auto Differential ONLY. Physicianwill place an order for a manual differential or Pathologistreview at his discretion. [facility] OUTPATIENT [facility]. [address] [place] [address] [place] [address] LIQUEFACTION PLANT OPERATOR: KURTIS STEVENS DO PH:[phone] Health [facility] [address] [place], [place], [address] Absolute Lymph 1.19 {X10_3/uL} (Normal) Range: 0.83-4.51 [...] 4.2-5.4 WBC 9.0 K/mm3 (Normal) Range: 4.4-11.0 72-Fro-566085:10 CBC W/Diff, Automated Comments: [facility] [address] [place], [place], [address] Absolute Lymph 0.80 {X10_3/ul} (Abnormal) Range: 0.83-4.51 [...] 4.2-5.4 WBC 6.2 K/mm3 (Normal) Range: 4.4-11.0 24-Jcx-811728:25 CBC W/Diff, Auto - EPLAB Comments: At [facility] Outpatient [facility] Medical Oncologypatients receive CBC w/auto Differential ONLY. Physicianwill place an order for a manual differential or Pathologistreview at his discretion. [facility] OUTPATIENT [facility]. [address] [place] [address] [place] [address] LIQUEFACTION PLANT OPERATOR: KURTIS STEVENS DO PH:[phone] Health System [facility] [address] [place], [address] Absolute Lymph 0.75 {X10_3/uL} (Abnormal) [...] 4.2-5.4 WBC 7.7 K/mm3 (Normal) Range: 4.4-11.0 1-Iog-765693:50 Urinalysis, Complete Comments: How was Urine Obtained? LOCAL TANKER TRUCK DRIVER TO SPECIFYTrinity Health System [facility] [address] [place], [place], [address] MUCUS, URINE 0 SEEN {/hpf} (Normal) BACTERIA [...] CLARITY Sl. Cloudy (Normal) COLOR Yellow (Normal) 8-Mxs-409800:00 Basic Metabolic Profile (BMP) Comments: [facility] Yr[address] [facility]. [place], [place], [address] GAP 6 (Normal) Range: 5-15 CO2 38.0 [...] 7-18 GLU 101 mg/dL (Normal) Range: 70-110 0-Uhk-210724:00 CBC W/Diff, Automated Comments: [facility] [address] [place], [address] Absolute Lymph 0.60 {X10_3/ul} (Abnormal) [...] 4.4-11.0 :30 Miscellaneous Lab Procedure Comments: Comments: [id number], [id number](s) Ordered: Flow [id number] Test(s) Ordered by Physician: Cytogenetics [id number] Clinic Fairview Hospital [address] [place] [place], [place], [address] [facility] LAB TEST FLOW-SEE PTH (Normal) :30 Miscellaneous Lab Procedure 2 Comments: Comments: [id number], [id number](s) Ordered: Flow [id number] Test(s) Ordered by Physician: Cytogenetics [id number] Health [facility] [address] [place], [place], [address] [facility] LAB TEST 2 CYTO-SEE PTH (Normal) :03 CBC W/Diff, Auto - EPLAB Comments: At [facility] Outpatient [facility] Medical Oncologypatients receive CBC w/auto Differential ONLY. Physicianwill place an order for a manual differential or Pathologistreview at his discretion. [facility] OUTPATIENT [facility]. [address] [place] [address] [place] [address] LIQUEFACTION PLANT OPERATOR: KURTIS STEVENS DO PH:[phone] Health System [facility] [address] [place], [place], [address] Absolute Lymph 0.74 {X10_3/uL} Range: 0.83-4.51 (Abnormal) [...] BONE MARROW BIOPSY See Note (Normal) Comments: [facility] [address] [place], [address] 0 Comments: Patient: KILEY DREW : 1935 (80/F) Acct Num: [id number] Phys: Devon Jenkins Unit Num: [id number] Loc: [facility] Specimen: [id number] Received: 11/26/15 - 50 Spec Type: BMB TISSUES TISSUES: ADDENDUM Addendum Number 1 CYTOGENETICS REPORT FROM [facility] CYTOGENETIC RESULT: 46,XX[20] INTERPRETATION: Normal female karyotype was observed in twenty m etaphases analyzed. Please see complete report in e-chart or EMR for further details Addendum Signed [facility] 12/05/15 <signa maria victoria on file> BONE [...] reference lab forflow cytometry and cytogenetics. / TIFFAINE:manas 11/26/15 TC:0 CPT: 19509, 48910, 83663 x2, 61442 x3, 36623 BONE MARROW STUDY Slides are reviewed. CBC [...] send outs (flow and cytogenetics) Signed [facility] 11/29/15 <signature on file> :0 IMMUNOHISTOCHEMISTRY See Note (Normal) Comments: [facility] [address] [place], [address] 0 Comments: Patient: KILEY DREW : 1935 (80/F) Acct Num: [id number] Phys: Devon Jenkins Unit Num: [id number] Loc: [facility] Specimen: [id number] Received: 11/27/15 - 1310 Spec Type: IMMUNO TISSUES TISSUES: SPECIMEN INFORMATION: Tissue Source: Bone marrow biopsy and aspiration Clinical Info: Anemia Specimen Number: [id number] CPT code: 92452, 72629 x14 METHOD OLOGY: Deparaffinized sections of prefer/formalin-fixed [...] positive CD79a (11E3) positive CD138 (B-A38) negative Buxton (polyclonal) negative Lambda (polyclonal) negative CD10 (56C6) negative CD23 (1B12) negative BCL-2 (bcl-2/100/D5) negative BCL-6 (VJ989M/A8) negative Cyclin D1/BCL-1 (SP4) negative Ki-67 (30-9) negative These tests were developed and their performance characteristics determined by [facility] Laboratory. They may not have been cleare d or approved by the U.S. Food and Drug Administration. The FDA has determined that such clearance or approval is not necessary. INTERPRETATION: A. Bone marrow core: Polytypic (benign) lymphoid aggregate. Case has been reviewed in consultation with Dr. Smith who concurs with the abovediagnosis. IDC:[email or web address] AM:manas 11/28/15 PHYSICIAN AND INSTITUTION [facility] [address] [place], [place] [address] Signed Kurtis Stevens 11/28/15 <signature on file> 77-Eyf-378146:37 Basic Metabolic Profile (BMP) Comments: [facility] [address] [place], [place], [address] GAP 6 (Normal) Range: 5-15 CO2 36.0 [...] 7-18 GLU 90 mg/dL (Normal) Range: 70-110 72-Npv-729713:36 CBC W/Diff, Auto - EPLAB Comments: At [facility] Outpatient [facility] Medical Oncologypatients receive CBC w/auto Differential ONLY. Physicianwill place an order for a manual differential or Pathologistreview at his discretion. [facility] OUTPATIENT [facility]. [address] [place] [address] [place] [address] LIQUEFACTION PLANT OPERATOR: KURTIS STEVENS DO PH:[phone] Clinic Fairview Hospital [address] [place], [place], [address] Absolute Lymph 0.96 {X10_3/uL} (Normal) Range: 0.83-4.51 [...] 4.4-11.0 :25 Basic Metabolic Profile (BMP) Comments: [facility] [address] [place], [address] GAP 2 (Abnormal) Range: 5-15 CO2 38.0 [...] 7-18 GLU 102 mg/dL (Normal) Range: 70-110 63-Coy-503774:15 Comments: Non-[facility] Laboratory - refer to report for specific site [id number] TRANSFUSED PRODUCT: T AND S with Crossmatch, Red Cells COUNT: 2 (Normal) 68-Pcz-449770:15 Type AND Screen Comments: CMV NEG?* NGive When? When ReadyIrradiated? YLeukodepleted? YReason for Type AND Screen/Red Cells: [facility] [address]sx[address] [place], [address] Antibody Screen NEGATIVE (Normal) BLOOD TYPE GEL A POSITIVE (Normal) 54-Zsk-243168:15 Type AND Screen Comments: CMV NEG?* NGive When? When ReadyIrradiated? YLeukodepleted? YReason for Type AND Screen/Red Cells: [facility] [address]jk[address] [place], [address] ; Managed by Devon Jenkins Antibody Screen NEGATIVE (Normal) BLOOD TYPE GEL A POSITIVE (Normal) 35-Eoa-411228:03 CBC W/Diff, Auto - EPLAB Comments: At [facility] [facility]patient [facility] Medical Oncologypatients receive CBC w/auto Differential ONLY. Physicianwill place an order for a manual differential or Pathologistreview at his discretion. [facility] OUTPATIENT [facility]. [address] [place] [address] [address] LIQUEFACTION PLANT OPERATOR: KURTIS STEVENS DO PH:[phone] Health [facility] Nnknnxijgg1185 [place], [address] Absolute Lymph 0.65 {X10_3/uL} (Abnormal) [...] 4.2-5.4 WBC 9.6 K/mm3 (Normal) Range: 4.4-11.0 04-Lkd-826470:05 Comprehensive Metabolic Profil Comments: Serial Specimen #1, #2 or #3? 1[facility] Fhamwlrkyi4759 [place], [place], [address] GAP 5 (Normal) Range: 5-15 CO2 40.0 [...] Comments: Serial Specimen #1, #2 or #3? [address] [place] [address] Fkftqxtsme8737 [address]. [place], [place], [address] Range: 84-246 :05 Uric Acid Comments: Serial Specimen #1, #2 or #3? [address] [place] [address] Uxxjuvssed4530 [address]. [place], [place], [address] URIC 4.1 mg/dL (Normal) Range: 2.6-6.0 Comments: The drugs N-Acetylcysteine and Metamizole may falsely deressthis assay. :04 CBC W/Diff, Auto - EPLAB Comments: At [facility] Outpatient [facility] [place] Medical Oncologypatients receive CBC w/auto Differential ONLY. Physicianwill place an order for a manual differential or Pathologistreview at his discretion. [facility] OUTPATIENT [facility]. [address] [place] [address] [address] [employer] PLANT OPERATOR: KURTIS STEVENS DO PH:[phone] Health System [facility] Vfjfxfkahs3551 [place], [address] Absolute Lymph 0.78 {X10_3/uL} (Abnormal) [...] Range: 4.4-11.0 :31 CBC W/Diff, Automated Comments: [facility] Afqevtzopi0221 [address] [place], [place], [address] OVALOCYTE 1+ (Normal) HYPOCHROMASIA 1+ (Normal) ANISO [...] K/mm3 (Normal) Range: 4.4-11.0 :35 RC Comments: Non-[facility] Laboratory - refer to report for specific site [id number] TRANSFUSED PRODUCT: T AND S with Crossmatch, Red Cells COUNT: 2 (Normal) :35 Type AND Screen Comments: CMV NEG?* NGive When? [id number]? YLeukodepleted? YReason for Type AND Screen/Red Cells: AN[facility]IAWCleveland [facility] Effujizhke7896 [place], [place], [address] Antibody Screen NEGATIVE (Normal) BLOOD TYPE GEL A POSITIVE (Normal) 06-Udn-947174:41 Bilirubin, Direct Comments: Serial Specimen #1, #2 or #3? 1[facility] Uygvnvrynn4265 [place], [place], [address] D BILI 0.13 mg/dL (Normal) Range: 0.00-0.30 :41 CBC W/Diff, Automated Comments: PERIPHERAL BLOOD FLOW CYTOMETRYWCleveland Clinic Fairview Hospital Exupcsavcl7558 [place], [address] MICROCYTES 1+ (Normal) HYPOCHROMASIA 2+ [...] 4.2-5.4 WBC 7.0 K/mm3 (Normal) Range: 4.4-11.0 68-Ddv-570926:41 Comprehensive Metabolic Profil Comments: Serial Specimen #1, #2 or #3? 1WC[facility] Qkqwmfujlu7200 [place], [place], [address] GAP 3 (Abnormal) Range: 5-15 CO2 39.0 [...] 70-110 :41 Direct Antiglobulin Liam BRIAN Comments: [facility] Lppebryzqq2345 [facility] [place], [address] DIRECT LIMA= NEG w/POLYSPECIFIC (Normal) 66-Boh-413884:41 Erythropoietin Comments: Is Patient Fasting? [facility] (refer to report for specific site)refer to report for address and phone number ERYTHROP 108493 97.7 m[iU]/mL (Abnormal) Range: 2.6-18.5 59-Ove-284180:41 Ferritin Comments: Serial Specimen #1, #2 or #3? 1WC[facility] Egmwkaefdx3871 [facility] [place], [address] FERRITIN 13 ng/mL (Normal) Range: 8-252 06-Rjh-882686:41 Haptoglobin Comments: Is Patient Fasting? [facility] (refer to report for specific site)refer to report for address and phone number HAPTOGLOB 1628 209 mg/dL (Abnormal) Range: 34-200 Comments: Performed at: [facility] [address] [id number] Director: Elías Ludwig PhD, Phone: [phone] 82-Lak-600553:41 JEY + Protein Elect, Serum Comments: Is Patient Fasting? [facility] (refer to report for specific site)refer to report for address and phone number NOTE: Comment (Normal) Comments: Protein electrophoresis scan will follow via computer,mail, or tax manager delivery. JEY RESULT,S Comment (Normal) Comments: No monoclonality detected. A/G RATIO 1.2 (Normal) Range: 0.7-1.7 GLOBULIN, TOTAL 2.9 g/dL (Normal) Range: 2.2-3.9 M-SPIKE (Normal) Comments: Not Observed GAMMA GLOBULIN 0.9 g/dL (Normal) Range: 0.4-1.8 BETA GLOBULIN 1.0 g/dL (Normal) Range: 0.7-1.3 PPVUK-5-JXDW 0.8 g/dL (Normal) Range: 0.4-1.0 MTGCR-4-OAJI 0.3 g/dL (Normal) Range: 0.0-0.4 ALBUMIN 3.3 g/dL (Normal) Range: 2.9-4.4 IMMUNOGL M 165 mg/dL (Normal) Range: 26-217 IMMUNO A 84 mg/dL (Normal) Range: 64-422 IMMUNO G 729 mg/dL (Normal) Range: 700-1600 PROTEIN,TOTAL 6.2 g/dL (Normal) Range: 6.0-8.5 67-Hwl-082779:41 Iron+Iron Binding Capacity Comments: Serial Specimen #1, #2 or #3? 1WC[facility] Vvubfhhhzi1494 [place], [address] IRON SATURATION 4.7 % (Abnormal) Range: 15.0-55.0 IRON 25 ug/dL (Abnormal) Range: 50-170 TIBC 531 ug/dL (Abnormal) Range: 250-450 49-Ouz-197116:41 [place] Lambda Lt Chn Ser. Mon. Comments: Is [...] Comments: Serial Specimen #1, #2 or #3? 1[facility] Wzhfizsdoh9299Narinder [place], [address] Range: 84-246 :41 Partial Thromboplast Time Comments: [facility] Opcojsjwwj9005 Mitzi [place], [address] PTT 36.4 s (Abnormal) Range: 24.1-36.2 :41 Prothrombin Time w/INR Comments: [facility] Ofcexdhdap1994 [address]itz[address] Granda [place], [address] INR 1.1 (Normal) PROTIME 13.4 s (Normal) Range: 11.7-14.9 :41 Retic Panel Comments: PERIPHERAL BLOOD FLOW CYTOMETRYWJeremy Ville [address] [place], [address] IPF 1.3 % (Normal) Range: 1.0-7.9 Comments: [...] Comments: Serial Specimen #1, #2 or #3? 1[facility] Nanvujekcv6669 Mitzi [place], [address] URIC 3.7 mg/dL (Normal) Range: 2.6-6.0 Comments: The drugs N-Acetylcysteine and Metamizole may falsely deressthis assay. :41 Vitamin B12 453 pg/mL (Normal) Comments: [facility] Upnhjcgupa5590 [place], [address] Range: 211-911 :52 Fecal Occult Blood , Office (70060) Fecal Occult Blood , Office (Inhouse) positive (Normal) 86-Msd-146599:17 CBC WITH MANUAL DIFF Comments: STANDING ORDER; PATIENT NOT FASTINGPERFORMED BY: [facility] Yxelbp4641 [facility] [id number] Information: [id number] (37161) Hematology Comments: Note: (Normal) Comments: Verified by [...] Range: 3.4-10.8 :56 CBC W/Diff, Automated Comments: [facility] Wxmimswrnb9542 [address] Granda [place], [place], [address] SMEAR COMMENT COMMENT (Normal) Comments: SLIDE SCANNED [...] WBC Comments: PATIENT NOT FASTINGPERFORMED BY: [facility] Uuvhmg5934 [facility] [id number] Information: [id number] (20186) Hematology Comments: Note: (Normal) Comments: Verified by [...] present. WBC 7.5 {x10E3/uL} (Normal) Range: 3.4-10.8 2-Vub-429913:11 CBC W/Diff, Automated Comments: [facility] Dfdigelecv0951 [address]. [place], [place], [address] MICROCYTES 1+ (Normal) HYPOCHROMASIA 2+ (Normal) ANISO [...] 4.2-5.4 WBC 8.7 K/mm3 (Normal) Range: 4.4-11.0 48-Zpq-480918:45 HH, Hemoglobin AND Comments: [facility] Hbuneasrbi7050 [address] [place], [place], [address] Hematocrit HCT 31.8 % (Abnormal) Range: 37-47 HGB 9.4 g/dL (Abnormal) Range: 12.0-15.0 33-Rbm-623584:53 RC Comments: Non-[facility] Laboratory - refer to report for specific site [id number] TRANSFUSED PRODUCT: T AND S with Crossmatch, Red Cells COUNT: 2 (Normal) 08-Zzv-628484:53 Type AND Screen Comments: CMV NEG?* NGive When? 09/20/15 9AMIrradiated? NLeukodepleted? YReason for Type AND Screen/Red Cells: [facility]WC[facility] Vecieymuyb2353 [place], [address] Antibody Screen NEGATIVE (Normal) BLOOD TYPE GEL A POSITIVE (Normal) 64-Ftj-059332:53 Type AND Screen Comments: CMV NEG?* NGive When? 09/20/15 9AMIrradiated? NLeukodepleted? YReason for Type AND Screen/Red Cells: [facility]WC[facility] Twpsnydylx5546 [place], [address] Antibody Screen NEGATIVE (Normal) BLOOD TYPE GEL A POSITIVE (Normal) 88-Bde-534747:51 CBC W/Diff, Automated Comments: [facility] Cdzpkdewea6027 [place], [address] MICROCYTES 1+ (Normal) HYPOCHROMASIA 2+ (Normal) [...] 4.2-5.4 WBC 7.6 K/mm3 (Normal) Range: 4.4-11.0 66-Tnl-763095:30 CBC W/Diff, Automated Comments: [facility] Rtfnhplkle2752 [address]. [place], [place], [address] SMEAR COMMENT (Normal) Comments: 1+ ANISOCYTOSIS Absolute [...] 4.2-5.4 WBC 8.1 K/mm3 (Normal) Range: 4.4-11.0 19-Eln-786435:00 CBC W/Diff, Automated Comments: [facility] Jpvrbxeizu6984 [address]. [place], [place], [address] MICROCYTES 2+ (Normal) HYPOCHROMASIA 3+ (Normal) ANISO [...] 4.2-5.4 WBC 8.6 K/mm3 (Normal) Range: 4.4-11.0 33-Prk-755551:10 CBC W/Diff, Automated Comments: [facility] Hthdznjkgk6474 [address]. [place], [place], [address] SMEAR COMMENT COMMENT (Normal) Comments: SLIDE SCANNED [...] 4.2-5.4 WBC 8.2 K/mm3 (Normal) Range: 4.4-11.0 22-Mgp-225143:45 CBC W/Diff, Automated Comments: [facility] Gicdzrjiiq0091 [place], [address] OVALOCYTE RARE (Normal) HYPOCHROMASIA 1+ (Normal) ANISO [...] 4.2-5.4 WBC 9.1 K/mm3 (Normal) Range: 4.4-11.0 2-Nqf-158392:30 CBC W/Diff, Automated Comments: [facility] Upiqrwkeym3999 [address]. [place], [place], [address] SMEAR COMMENT SCANNED (Normal) Comments: 2+ ANISOCYTOSIS, [...] Range: 4.4-11.0 :44 CBC W/Diff, Automated Comments: [facility] Gfzwnszsmr0858 [address] [place], [place], [address] SMEAR COMMENT COMMENT (Normal) Comments: SLIDE SCANNED [...] 4.2-5.4 WBC 8.2 K/mm3 (Normal) Range: 4.4-11.0 7-Wzk-601340:20 HH, Hemoglobin AND Hematocrit Comments: [facility] Ttbfpmdbtb[address] [facility] [address] [place], [place], [address] HCT 30.8 % (Abnormal) Range: 37-47 HGB 8.8 g/dL (Abnormal) Range: 12.0-15.0 50-Hfz-357869:30 Prothrombin Time w/INR Comments: [facility] Ltqjhoaubi[address] [facility] [address] [place], [place], [address] INR 1.0 (Normal) PROTIME 13.0 s (Normal) Range: 11.7-14.9 02-Qdn-139438:48 Basic Metabolic Profile (BMP) Comments: [facility] Rsdhphyndd7596 [facility] [place], [place], [address] GAP 3 (Abnormal) Range: 5-15 CO2 41.0 [...] Range: 70-110 :48 BNP,B-Type NATRIURETIC PEPTIDE Comments: [facility] Goaxgavsnp2431 [address]itzi [place], [place], [address] B-TYPE CORBIN PEP 458.2 pg/mL (Abnormal) Range: 0-100 :48 CBC W/Diff, Automated Comments: [facility] Ejsbrjwior0595 [address] Granda [place], [place], [address] Absolute Lymph 0.66 {X10_3/ul} (Abnormal) Range: 0.83-4.51 [...] Range: 4.4-11.0 :39 CBC W/Diff, Automated Comments: [facility] Bcjsuyygsv1428 [place], [address] Absolute Lymph 0.93 {X10_3/ul} (Normal) [...] 4.2-5.4 WBC 9.9 K/mm3 (Normal) Range: 4.4-11.0 8-Tyl-758987:00 Basic Metabolic Profile (BMP) Comments: Serial Specimen #1, #2 or #3? 1'TROP' Serial specimen #1, #2, #3, or #4: 1[facility] Uanbuzbqgm8549 [address]. [place], [place], [address] GAP 5 (Normal) Range: 5-15 CO2 39.0 [...] 126 mg/dLsuggests DIABETES MELLITUS per A.D.A. criteria. 5-Eyf-352813:00 CBC W/Diff, Automated Comments: [facility] Nbfftfixwk2462 [address]. [place], [place], [address] SCHISTOCYTES 1+ (Normal) OVALOCYTE RARE (Normal) HYPOCHROMASIA [...] 4.2-5.4 WBC 9.3 K/mm3 (Normal) Range: 4.4-11.0 6-Wcu-507548:00 CK-MB Quantitative and Index Comments: Serial Specimen #1, #2 or #3? 1'TROP' Serial specimen #1, #2, #3, or #4: [address] [place] [address] Lvnnunpgfc9283 [place], [address] CKRI 2.1 % (Abnormal) Range: 0.0-1.4 Comments: RELATIVE INDEX >1.5% IS PRESUMPTIVELY POSITIVE CPKMB 2.1 ng/mL (Normal) Range: 0.0-5.0 Comments: CK-MB and RI Interpretation MB Relative Index Non-AMI <or= 5 NA Indeterminate > 5 <or= 4 AMI > 5 > 4 CPK TOTAL 100 U/L (Normal) Range: 26-192 2-Fri-976292:00 Troponin-I Comments: Serial Specimen #1, #2 or #3? 1'TROP' Serial specimen #1, #2, #3, or #4: [address] [place] [address] Taffkbwgsg5422 [place], [address] TROPONIN-I < 0.02 ng/mL (Normal) Comments: TROPONIN-I EXPECTED VALUES <0.05 NEGATIVE 0.06 - 0.59 AT RISK OF [place] > OR = 0.60 SUGGEST [place] 2-Spr-733402:50 Methymalonic Acid, Serum Comments: PATIENT NOT FASTINGPERFORMED BY: [facility]CoThe [facility] Hospital [facility] T[facility] FallsHmoaba1972 [facility] [id number] BY: [address] [id number] ([address]) Methylmalonic Acid, Serum 278 nmol/L (Normal) Range: 0-378 7-Tnt-611882:50 VITAMIN B-12 (CYANOCOBALAMIN) Comments: PATIENT NOT FASTINGPERFORMED BY: [place] 2762270 [facility] [id number] BY: [address] [id number] (93264) Vitamin B12 692 pg/mL (Normal) Range: 211-946 2-Imi-343163:50 IRON BINDING CAPACITY Comments: PATIENT NOT FASTINGPERFORMED BY: [place] 2762270 [facility] [id number] BY: [address] [id number] (TIBC) (04335) Iron Saturation 22 % (Normal) Range: 15-55 Iron, Serum 92 ug/dL (Normal) Range: 35-155 UIBC 320 ug/dL (Normal) Range: 150-375 Iron Bind.Cap.(TIBC) 412 ug/dL (Normal) Range: 250-450 3-Omw-122086:50 FERRITIN (43830) Comments: PATIENT NOT FASTINGPERFORMED BY: [place] 2762270 [facility] [id number] BY: [address] [id number] Ferritin, Serum 72 ng/mL (Normal) Range: 15-150 3-Afh-174395:50 CBC, PLATELETS & AUT DIFF Comments: PATIENT NOT FASTINGPERFORMED BY: [place] 2762270 [facility] [id number] BY: [address] [id number] Information: [id number] (31312) Immature Grans (Abs) 0.0 {x10E3/uL} (Normal) Range: [...] 3.77-5.28 WBC 9.0 {x10E3/uL} (Normal) Range: 3.4-10.8 00-Lra-236434:06 Iron Binding Capacity Comments: PATIENT WAS FASTINGPERFORMED BY: [facility] Tdlplk6663 [facility] [id number] BY: [facility] [address] [id number] Information: [id number] (TIBC) (90651) Iron Saturation 4 % (Abnormal) Range: 15-55 Iron, Serum 17 ug/dL (Abnormal) Range: 35-155 UIBC 419 ug/dL (Abnormal) Range: 150-375 Iron Bind.Cap.(TIBC) 436 ug/dL (Normal) Range: 250-450 74-Nvl-853248:06 RETICULOCYTE COUNT (76926) Comments: PATIENT WAS FASTINGPERFORMED BY: [employer] Dmlmtg8889 [facility] [id number] BY: [address] [id number] Reticulocyte Count 1.2 % (Normal) Range: 0.6-2.6 76-Zwg-549545:06 LDH (LD) (LACTATE Comments: PATIENT WAS FASTINGPERFORMED BY: LabRegeneca Worldwide Hqlnce0280 [facility] [id number] BY: [address] [id number] DEHYDROGENASE) (18526) LDH 284 [iU]/L (Abnormal) Range: 119-226 19-Bsg-922030:06 Vitamin B-12 Comments: PATIENT WAS FASTINGPERFORMED BY: [employer] Cadgpl9233 [facility] [id number] BY: [address] [id number] (cyanocobalamin) (10538) Vitamin B12 452 pg/mL (Normal) Range: 211-946 45-Hje-196768:06 Ferritin (91792) Comments: PATIENT WAS FASTINGPERFORMED BY: [employer] Fcrhwe1127 [facility] [id number] BY: [address] [id number] Ferritin, Serum 15 ng/mL (Normal) Range: 15-150 04-Egz-295200:06 Folic Acid Serum (22399) Comments: PATIENT WAS FASTINGPERFORMED BY: [employer] Actidb0462 [facility] [id number] BY: [address] [id number] Folate (Folic Acid), Serum 16.7 ng/mL (Normal) Comments: A serum folate concentration of less than 3.1 ng/mL isconsidered to represent clinical deficiency. 33-Spb-262248:06 Methymalonic Acid, Serum Comments: PATIENT WAS FASTINGPERFORMED BY: LabM[facility]ising [facility]6370 [facility] [id number] BY: [address] [id number] (65264) Methylmalonic Acid, Serum 321 nmol/L (Normal) Range: 0-378 18-Jvn-146358:22 TSH (87942) Comments: PATIENT NOT FASTINGPERFORMED BY: [facility]6370 [facility] [id number] TSH 1.540 {uIU/mL} (Normal) Range: 0.450-4.500 29-Dth-432774:22 METABOLIC PANEL, COMPREHENSIVE Comments: PATIENT NOT FASTINGPERFORMED BY: [employer]6370 [facility] [id number] (14224) ALT (SGPT) 13 [iU]/L (Normal) Range: 0-32 [...] Glucose, Serum 99 mg/dL (Normal) Range: 65-99 86-Lud-860053:22 CBC W/AUTO DIFF WBC Comments: PATIENT NOT FASTINGPERFORMED BY: NERIS [facility] Mztixx5353 Fei SotoY[facility] [id number] Information: [id number] DL (12237) Immature Grans (Abs) 0.0 {x10E3/uL} (Normal) Range: [...] 3.77-5.28 WBC 8.4 {x10E3/uL} (Normal) Range: 3.4-10.8 96-Nav-211040:22 Lipid Profile Comments: Test performed at:[facility] Zkyjknribh6364 [place] [address] VLDL 17 mg/dL (Normal) Range: 5-40 LDL [...] 200-240 mg/dL Borderline >240 mg/dL High Risk 07-Whq-998609:22 Liver Profile Comments: Test performed at:[facility] Kaembkgvso8003 [facility] [place] [address] D BILI 0.09 mg/dL (Normal) Range: 0.00-0.30 T BILI 0.30 mg/dL (Normal) Range: 0.20-1.00 ALT 30 U/L (Normal) Range: 12-78 ALK P 96 U/L (Normal) Range: 50-136 AST 29 U/L (Normal) Range: 15-37 GLOB 3.3 g/dL (Normal) Range: 2.3-3.5 ALB 3.5 g/dL (Normal) Range: 3.4-5.0 T PROT 6.8 g/dL (Normal) Range: 6.4-8.2 4-Gjb-363934:58 Miscellaneous Lab Procedure Comments: RUN LOWEST TESTComments: [id number] URINE TOXICOLOGYTest(s) Ordered: [id number] URINE TOXICOLOGYTest performed at:[facility] Ykxckqutgu7999 [facility] [place], [place] [address] [facility] Comments: [id number] 6+OXYCODONE-BUND (ng/mL)DRUG RESULT SCREEN CUTOFF____ Amphetamines,Urine Negat LAB (Normal) terri ng/mL 1000Amphetamine test includes Amphetamine and Methamphetamine.Barbiturates Negative ng/mL 200Benzodiazepines Negative ng/mL 200Cannabinoid TEST Negative ng/mL 20Cocaine (Metab) Negative ng/mL 300Opiates Negative ng/mL 300 Opiates test includes Codeine, Morphine, Hydromorphone, [place] codone.Oxycodone/Oxymorphone,Urine Positive ng/mL 300 Test includes Oxydodone and Oxymorphone.Oxycodone Positive Oxycodone (GC/MS) 942 ng/mL 300Oxymorphone Positive Oxymorphone (GC/MS) 1150 ng/mL 300 TESTING PERFORMED AT [facility]. ORIGINAL REPORT ON FILE IN LAB C [facility] ADDITIONAL TEST SITE INFORMATION. 8-Nbk-067725:58 Urine Drug Screen (VISTA) Comments: Comments: [id number] URINE TOXICOLOGYList of Drugs Taken or Suspected? UNKNOWNTest performed at:[facility] Dxzjukxyyd8163 [place] [address] THC NEGATIVE (Normal) PCP NEGATIVE [...] TESTING MUST BE ORDERED SEPARATELY. USE TESTMNEMONIC: [facility] 57-Two-838443:19 Anti-dsDNA Ab Comments: Test performed at:[facility] Xlvqlvsmjt9607 [place] [address] dsDNA AB 4 {IU/mL} (Normal) Range: 0-9 Comments: Negative <5 Equivocal 5 - 9 Positive >9Performed at: - [facility] Gofzna4868 [place], [place] [id number] D irector: Johnathan Junior PhD, Phone: [phone] 20-Zrj-202532:19 CBC W/Diff, Automated Comments: Test performed at:[facility] Svlctenwrv7846 [place], [place] [address] Absolute Lymph 0.78 {X10_3/ul} (Abnormal) Range: 0.83-4.51 [...] 4.2-5.4 WBC 9.5 K/mm3 (Normal) Range: 4.4-11.0 67-Yyb-846971:19 Complement C3 Comments: Test performed at:[facility] Xhcpufpzra7647 [place] [address] COMP C3 135 (Normal) Range: 90-180 Comments: Result Units: mg/dL AdultPerformed at: - [facility] [address] [id number] Director: Johnathan Junior PhD, Phone: [phone] 80-Wwj-137433:19 Complement C4 Comments: Test performed at:[facility] [address] [place] [address] COMP C4 27 (Normal) Range: 9-36 Comments: Result Units: mg/dL Adult 87-Vud-041698:19 Comprehensive Metabolic Profil Comments: Test performed at:[facility] Vygnchedym9521 [place] [address] GAP 8 (Normal) Range: 5-15 [...] 7-18 GLU 92 mg/dL (Normal) Range: 70-110 27-Tip-163316:19 Protein+Creatinine Ratio,Urine Comments: Test performed at:[facility] Dsihqdatyb2475 [address] [place], [place] [address] PROT:CRE RATIO 334 {mg/g_CRE} (Abnormal) Range: 0-200 PROTEIN,UR.RAN. 32.8 mg/dL (Abnormal) UR CREAT 98.0 mg/dL (Normal) 70-Khg-815572:19 Urinalysis, Complete Comments: How was Urine Obtained? CLEAN CATCHTest performed at:[facility] Cwiazklumz4995 [address] [place], [place] [address] HYALINE CAST 5-10 SEEN {/lpf} (Normal) Range: [...] CLARITY Sl. Cloudy (Normal) COLOR Yellow (Normal) 02-Oek-757462:41 CBC With Differential/Platelet Comments: PATIENT NOT FASTINGPERFORMED BY: LabCoThe [facility] Hospital of Tinton FallsWfvwuk6468 [facility] [id number] Information: [id number] Immature Grans (Abs) 0.0 {x10E3/uL} (Normal) Range: [...] Basic Metabolic Profile (BMP) Comments: Test performed at:[facility] Ipdprnkgzs2649 [place] [address] GAP 3 (Abnormal) Range: 5-15 CO2 33.0 mmol/L (Abnormal) Range: 21.0-32.0 CL 101 mmol/L (Normal) Range: 98-107 K 3.9 mmol/L (Normal) Range: 3.5-5.1 NA 137 mmol/L (Normal) Range: 136-145 CA 8.3 mg/dL (Abnormal) Range: 8.5-10.1 BUN/CRE 26.3 {RATIO} (Abnormal) Range: 10-20 CREAT,SERUM 0.8 mg/dL (Normal) Range: 0.6-1.0 BUN 21 mg/dL (Abnormal) Range: 7-18 GLU 85 mg/dL (Normal) Range: 70-110 60-Skn-195441:43 CBC W/Diff, Automated Comments: Test performed at:[facility] Qwjjjahwiz6003 [facility] [place] [address] Absolute Lymph 0.85 {X10_3/ul} (Normal) [...] #1, #2, #3, or #4: 1Test performed at:[facility] Sofulqecff6900 [facility] [address]. [place], [place] [address] GAP 5 (Normal) Range: 5-15 CO2 38.0 [...] :40 CBC W/Diff, Automated Comments: Test performed at:[facility] [id number] [place] [address] Absolute Lymph 1.10 {X10_3/ul} (Normal) Range: 0.83-4.51 [...] #1, #2, #3, or #4: 1Test performed at:[facility] [id number] [place] [address] CPKMB 1.4 ng/mL (Normal) Range: 0.0-5.0 Comments: CK-MB and RI Interpretation MB Relative Index Non-AMI <or= 5 NA Indeterminate > 5 <or= 4 AMI > 5 > 4 CPK TOTAL 133 U/L (Normal) Range: 26-192 :40 Troponin-I Comments: Serial Specimen #1, #2 or #3? 1'TROP' Serial specimen #1, #2, #3, or #4: 1Test performed at:[facility] [id number] [place] [address] TROPONIN-I < 0.02 ng/mL (Normal) Comments: TROPONIN-I EXPECTED VALUES <0.05 NEGATIVE 0.06 - 0.59 AT RISK OF [place] > OR = 0.60 SUGGEST [place] :30 Basic Metabolic Profile (BMP) Comments: Test performed at:[facility] [address] [place] [address] GAP 6 (Normal) Range: 5-15 [...] :30 CBC W/Diff, Automated Comments: Test performed at:[facility] [address] [facility] [place] [address] Absolute Lymph 0.79 {X10_3/ul} (Abnormal) [...] 4.2-5.4 WBC 10.2 K/mm3 (Normal) Range: 4.4-11.0 67-Fxp-296680:16 Lipid Profile Comments: Test performed at:[facility] [address] [facility] [place] [address] VLDL 16 mg/dL (Normal) Range: [...] 200-240 mg/dL Borderline >240 mg/dL High Risk 56-Sos-319178:16 Liver Profile Comments: Test performed at:[facility] [address] [place], [place] [address] D BILI 0.09 mg/dL (Normal) Range: 0.00-0.30 T BILI 0.30 mg/dL (Normal) Range: 0.00-4.00 ALT 29 U/L (Normal) Range: 12-78 ALK P 116 U/L (Normal) Range: 50-136 AST 29 U/L (Normal) Range: 15-37 GLOB 3.6 g/dL (Normal) Range: 2.7-4.2 ALB 3.3 g/dL (Abnormal) Range: 3.4-5.0 T PROT 6.9 g/dL (Normal) Range: 6.4-8.2 83-Hir-005024:50 IRON BINDING CAPACITY (TIBC) Comments: PATIENT NOT FASTINGPERFORMED BY: [employer] [facility] [id number] (44930) Iron Saturation 13 % (Abnormal) Range: 15-55 Iron, Serum 51 ug/dL (Normal) Range: 35-155 UIBC 328 ug/dL (Normal) Range: 150-375 Iron Bind.Cap.(TIBC) 379 ug/dL (Normal) Range: 250-450 19-Zze-487715:50 FERRITIN (92457) Comments: PATIENT NOT FASTINGPERFORMED BY: CeltaxsysCoThe Rehabilitation Hospital of Tinton FallsLbiufz4266 [facility] [id number] Ferritin, Serum 33 ng/mL (Normal) Range: 15-150 21-Gqt-398598:50 CBC W/AUTO DIFF WBC Comments: PATIENT NOT FASTINGPERFORMED BY: The Shared WebThe Rehabilitation Hospital of Tinton FallsJtvmeq7699 [facility] [id number] Information: [id number] (60110) Immature Grans (Abs) 0.0 {x10E3/uL} (Normal) Range: [...] 3.77-5.28 WBC 11.0 {x10E3/uL} (Abnormal) Range: 3.4-10.8 06-Dlh-137357:59 FECAL OCCULT- Tubes sent home (00616) FECAL OCCULT HGB ASSAY, QUAL, 1-3 SIMULTANEOU negative (Normal) 97-Oxa-066999:10 VITAMIN B-12 (CYANOCOBALAMIN) Comments: PATIENT NOT FASTINGPERFORMED BY: [facility]6370 [facility] [id number] (86683) Vitamin B12 528 pg/mL (Normal) Range: 211-946 61-Iyp-040055:10 RETICULOCYTE COUNT MANUL Comments: PATIENT NOT FASTINGPERFORMED BY: NERIS Tutee Tceafy5108 [facility] [id number] (81581) Reticulocyte Count 2.9 % (Abnormal) Range: 0.6-2.6 18-Cnv-656026:10 LDH (LD) (LACTATE DEHYDROGENASE) Comments: PATIENT NOT FASTINGPERFORMED BY: [employer]6370 [facility] [id number] (23123) LDH 308 [iU]/L (Abnormal) Range: 119-226 26-Jsr-516912:10 IRON BINDING CAPACITY (TIBC) Comments: PATIENT NOT FASTINGPERFORMED BY: [employer]6370 [facility] [id number] (59965) Iron Saturation 26 % (Normal) Range: 15-55 Iron, Serum 104 ug/dL (Normal) Range: 35-155 UIBC 298 ug/dL (Normal) Range: 150-375 Iron Bind.Cap.(TIBC) 402 ug/dL (Normal) Range: 250-450 81-Mge-491035:10 FERRITIN (63056) Comments: PATIENT NOT FASTINGPERFORMED BY: [employer]6370 [facility] [id number] Ferritin, Serum 47 ng/mL (Normal) Range: 15-150 56-Ten-004663:10 CBC, PLATELETS & AUT DIFF Comments: PATIENT NOT FASTINGPERFORMED BY: [employer]6370 [facility] [id number] Information: [id number] (86808) Immature Grans (Abs) 0.0 {x10E3/uL} (Normal) Range: [...] 3.77-5.28 WBC 7.2 {x10E3/uL} (Normal) Range: 3.4-10.8 20-Tjw-812980:06 CBC-Complete Blood Cnt No Diff Comments: Test performed at:[facility] [address] [place], [place] [address] MPV 10.6 fL (Normal) Range: 6.2-12.0 PLT [...] 4.2-5.4 WBC 8.2 K/mm3 (Normal) Range: 4.4-11.0 27-Tki-451902:25 Basic Metabolic Profile (BMP) Comments: Serial Specimen #1, #2 or #3? 1'TROP' Serial specimen #1, #2, #3, or #4: 1Test performed at:[facility] [address] [place] [address] GAP 3 (Abnormal) Range: 5-15 [...] 126 mg/dLsuggests DIABETES MELLITUS per A.D.A. criteria. 39-Gue-900874:25 CBC W/Diff, Automated Comments: Test performed at:[facility] [address] [facility] [place] [address] Absolute Lymph 1.07 {X10_3/ul} (Normal) [...] 4.2-5.4 WBC 7.0 K/mm3 (Normal) Range: 4.4-11.0 91-Gmu-321455:25 CK-MB Quantitative and Index Comments: Serial Specimen #1, #2 or #3? 1'TROP' Serial specimen #1, #2, #3, or #4: 1Test performed at:[facility] [address] [place] [address] CPKMB 1.8 ng/mL (Normal) Range: 0.0-5.0 Comments: CK-MB and RI Interpretation MB Relative Index Non-AMI <or= 5 NA Indeterminate > 5 <or= 4 AMI > 5 > 4 CPK TOTAL 165 U/L (Normal) Range: 26-192 88-Ejt-338043:25 Troponin-I Comments: Serial Specimen #1, #2 or #3? 1'TROP' Serial specimen #1, #2, #3, or #4: 1Test performed at:[facility] [address] [place] [address] TROPONIN-I < 0.02 ng/mL (Normal) Comments: TROPONIN-I EXPECTED VALUES <0.05 NEGATIVE 0.06 - 0.59 AT RISK OF [place] > OR = 0.60 SUGGEST [place] 98-Hen-120363:04 BMP GAP 2 (Abnormal) Range: 5-15 CO2 [...] Result Units: mg/dL AdultPerformed at: - [facility] [address] [id number] Director: Johnathan Junior PhD, Phone: [phone] C4 26 (Normal) Range: 9-36 Comments: [...] - 9Positive >9Performed at: CB - [facility] [address] [id number] Director: Johnathan Junior PhD, Phone: [phone] PROCRER tPROCRER 392 {mg/g_CRE} (Abnormal) Range: 0-200 PROUR 10.0 mg/dL (Normal) CREU 25.5 mg/dL (Normal) :00 [facility] Comments: How was Urine Obtained? CLEAN CATCH [...] (Normal) :54 CBC, PLATELETS & MANUAL DIFF (42251) Comments: recheck 03-08-14:11 B12 817 pg/mL (Normal) [...] Please note reference interval changePerformed at: - [address] [id number] Director: Ciaran Valles MD, Phone: [phone] RETIC retIPF 1.5 % (Normal) Range: [...] or Folic Acid Supplements? N Range: 250-450 47-Fkt-742078:11 TS Comments: CMV NEG?* NGive When? 02/22@0800Irradiated? NLeukodepleted? YReason for Type & Screen/Red Cells: ANEMIA SC3 NEGATIVE (Normal) SC2 NEGATIVE (Normal) SC1 NEGATIVE (Normal) ABS NEGATIVE (Normal) BT A POSITIVE (Normal) 77-Evx-049662:25 FECAL OCCULT- Tubes sent home (46083) FECAL OCCULT HGB ASSAY, QUAL, negative (Normal) 1-3 [facility] :08 HCT 29.9 % (Abnormal) Range: 37-47 [...] 7-18 GLU 88 mg/dL (Normal) Range: 70-110 6-Ham-223275:11 BTNP 235.3 pg/mL (Abnormal) Range: 0-100 :11 [...] CHOL 140 mg/dL (Normal) Comments: <200 mg/dL Ulndxpxsq377-896 mg/dL Borderline>240 mg/dL High Risk TRIG 61 [...] 3.4-5.0 TPROT 6.8 g/dL (Normal) Range: 6.4-8.2 8-Njd-964013:19 Metabolic Panel, Basic Comments: PATIENT NOT FASTINGPERFORMED BY: NERIS [employer].CoThe Rehabilitation Hospital of Tinton FallsCqvbtv1402 [facility] [id number] Information: [id number] (34579) Calcium, Serum 9.1 mg/dL (Normal) Range: 8.6-10.2 [...] Glucose, Serum 75 mg/dL (Normal) Range: 65-99 82-Pur-647747:39 CBC With Differential/Platelet Comments: PERFORMED BY: NERIS LabCoThe Rehabilitation Hospital of Tinton FallsJvscnu0020 [facility] [id number] Information: 08/09@7AM 08/10@7AM Immature Grans (Abs) 0.0 [...] 3.77-5.28 WBC 8.9 {x10E3/uL} (Normal) Range: 4.0-10.5 68-Qob-398960:39 Comp. Metabolic Panel (14) Comments: PERFORMED BY: LabCoThe Rehabilitation Hospital of Tinton FallsTnulym8559 [facility] [id number] ALT (SGPT) 27 [iU]/L (Normal) Range: 0-32 [...] 65-99 :39 Creatinine Clearance Comments: PERFORMED BY: [employer] [facility] [id number] Creatinine Clearance 95 mL/min (Normal) Range: 88-128 Comments: The above range is based on 1.73 square meter average body surfacearea. Creatinine, Ur 24hr 1035.0 {mg/24_hr} Range: 800.0-1800.0 (Normal) Creatinine, Urine 57.5 mg/dL (Normal) Range: 15.0-278.0 Magnesium, Serum 1.9 mg/dL (Normal) Comments: PERFORMED BY: [employer] [facility]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 Helper Letter- dr Donahue Indication: Myelodysplastic syndrome, high [...] unspecified bone marrow failure type : Reviewed Tumbler Machine Operator Helper Letter 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 Indication: Raynaud's phenomenon (secondary) Hypertension, renal disease : HTN/CAD Red Flags Indication: Hypertension, renal disease CAD in [place] artery : Continue Current Prescription(s) Indication: CAD in [place] artery CAD in [place] artery : Reviewed Tumbler Machine Operator Helper Letter Indication: CAD in [place] artery Hypertension, renal disease : Continue Current Prescription(s) Indication: Hypertension, renal disease COPD, moderate : Reviewed Tumbler Machine Operator Helper Letter Indication: COPD, moderate COPD, moderate : Continue Current Prescription(s) Indication: COPD, moderate Hypercholesteremia : Eprescribed prescriptions (G8553) Indication: Hypercholesteremia Epistaxis : Follow up in 3 weeks-4 gen med with chapis Indication: Epistaxis Epistaxis : Reviewed Lab Indication: Epistaxis Epistaxis : Reviewed Tumbler Machine Operator Helper Letter Indication: Epistaxis Pelvis fracture, right : Reviewed Tumbler Machine Operator Helper Letter Indication: Pelvis fracture, right Strain of [...] Prescription(s) Indication: COPD, moderate Lupus : Reviewed Tumbler Machine Operator Helper Letter Indication: Lupus Hypertension, renal disease : [...] Indication: ERYTHEMATOSUS, LUPUS ERYTHEMATOSUS, LUPUS : Reviewed Tumbler Machine Operator Helper Letter Indication: ERYTHEMATOSUS, LUPUS Hypertension, renal disease [...] LUMBAR INTERVERTEBRAL DISC WITHOUT MYELOPATHY : Reviewed Tumbler Machine Operator Helper Letter 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 Hypercholesteremia : Follow up in 3 months gen med Indication: Hypercholesteremia Chronic kidney disease (CKD), stage 2 (mild) : Eprescribed prescriptions (G8553) Indication: Chronic kidney disease (CKD), 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), stage 2 (mild) : consultation letter Indication: Chronic kidney disease (CKD), stage 2 (mild) COPD, moderate : Reviewed Tumbler Machine Operator Helper Letter Indication: COPD, moderate Hypertension, renal disease : Continue Current Prescription(s) Indication: Hypertension, renal disease Hypertension, renal disease : HTN/CAD Red Flags Indication: Hypertension, renal disease Hypercholesteremia : Cholesterol mgmt Indication: Hypercholesteremia Anemia, unspecified : Reviewed Lab Indication: Anemia, unspecified Anemia, unspecified : Reviewed Diagnostic Tests Indication: Anemia, unspecified Anemia, unspecified : Reviewed Tumbler Machine Operator Helper Letter Indication: Anemia, unspecified COPD, moderate : Reviewed Tumbler Machine Operator Helper Letter: dr ascencio Indication: COPD, moderate COPD, [...] Indication: Anemia, unspecified Anemia, unspecified : Reviewed Tumbler Machine Operator Helper Letter Indication: Anemia, unspecified Anemia, unspecified : Anemia: diagnosis and treatment Indication: Anemia, unspecified Mitral valve failure : Reviewed Tumbler Machine Operator Helper Letter Indication: Mitral valve failure Encounter for [...] Artery Disease Coronary Artery Disease : Reviewed Tumbler Machine Operator Helper Letter Indication: Coronary Artery Disease COPD, moderate : Continue Current Prescription(s) Indication: COPD, moderate Hypercholesteremia : Reviewed Lab Indication: Hypercholesteremia Chronic kidney disease (CKD), stage 2 (mild) : Reviewed Tumbler Machine Operator Helper Letter Indication: Chronic kidney disease (CKD), stage 2 (mild) Hypertension, renal disease : Follow up in 3 months Indication: Hypertension, renal disease Hypertension, renal disease : Continue Current Prescription(s) Indication: Hypertension, renal disease ERYTHEMATOSUS, LUPUS : Reviewed Tumbler Machine Operator Helper Letter Indication: ERYTHEMATOSUS, LUPUS Hypertension, renal disease [...] cyst (Renamed from Kidney cysts) : Reviewed Tumbler Machine Operator Helper Letter Indication: Renal cyst (Renamed from Kidney cysts) Hypertension, renal disease : Allergies: allergen Indication: Hypertension, renal disease Hypertension, renal disease : Follow up in 2-3 weeks Indication: Hypertension, renal disease Hypertension, renal disease : Reviewed Lab Indication: Hypertension, renal disease Hypertension, renal disease : High Blood Pressure (Essential Hypertension) *: blood pressure problems Indication: Hypertension, renal disease Hypertension, renal disease : Reviewed Tumbler Machine Operator Helper Letter Indication: Hypertension, renal disease Hypertension, renal [...] Tests Indication: Osteopenia ERYTHEMATOSUS, LUPUS : Reviewed Tumbler Machine Operator Helper Letter Indication: ERYTHEMATOSUS, LUPUS Hypertension, renal disease [...] Hypertension, renal disease ERYTHEMATOSUS, LUPUS : Reviewed Tumbler Machine Operator Helper Letter Indication: ERYTHEMATOSUS, LUPUS Hypercholesteremia : *Cholesterol [...] exacerbation of COPD with asthma : Reviewed Tumbler Machine Operator Helper Letter Indication: Acute exacerbation of COPD with [...] Indication: Osteopenia SYMPTOM, ABNORMALITY, GAIT : Reviewed Tumbler Machine Operator Helper Letter Indication: SYMPTOM, ABNORMALITY, GAIT Hypercholesteremia : [...] Indication: ERYTHEMATOSUS, LUPUS ERYTHEMATOSUS, LUPUS : Reviewed Tumbler Machine Operator Helper Letter Indication: ERYTHEMATOSUS, LUPUS Hypertension, renal disease [...] Spinal stenosis of lumbar region : Reviewed Tumbler Machine Operator Helper Letter Indication: Spinal stenosis of lumbar region [...] Cervical strain Planned Observations URINALYSIS, W/ MICRO ([id number])Indication: Hypertension, renal disease On: :09 Request MICROALBUMIN: CREATININE RATIO (88266) AND (45103)Indication: Hypertension, renal disease On: :09 Request METABOLIC PANEL, COMPREHENSIVE (94973)Indication: Hypertension, renal disease On: :09 Request CBC W/AUTO DIFF WBC (57513)Indication: Hypertension, renal disease On: : Request TSH (54962)Indication: Sinus bradycardia On: :08 Request CALCIFEDIOL (89242)Indication: Vitamin D deficiency On: :07 Request VITAMIN B-12 (CYANOCOBALAMIN) (66016)Indication: Other vitamin B12 deficiency anemia On: : Request LIPID PANEL (07096)Indication: Hypercholesteremia On: :07 Request CBC WITH MANUAL DIFF ([id number])Indication: Other vitamin B12 deficiency anemia On: :20 Request VITAMIN B-12 (CYANOCOBALAMIN) (29641)Indication: Other vitamin B12 deficiency anemia On: :20 Request Metabolic Panel, Basic (07264)Indication: Hypopotassemia On: :09 Request Comments: re check one week VITAMIN B-12 (CYANOCOBALAMIN) (19740)Indication: Other vitamin B12 deficiency anemia On: :48 Request LIPID PANEL (23979)Indication: Hypertension, renal disease On: :46 Request MAGNESIUM (13589)Indication: Hypopotassemia On: :44 Request POTASSIUM SERUM (59591)Indication: Hypopotassemia On: :44 Request TSH (14649)Indication: Sinus bradycardia On: :35 Request CALCIFEDIOL (54474)Indication: Vitamin D deficiency On: :35 Request LIPID PANEL (67256)Indication: Hypercholesteremia On: 44-Abd-714131:35 Request URINALYSIS, W/ MICRO (23124)Indication: Hypertension with heart disease On: 98-Jio-099613:20 Request MICROALBUMIN: CREATININE RATIO (35682) AND (00150)Indication: Hypertension with heart disease On: 98-Vle-900961:20 Request TSH (70310)Indication: Hypercholesteremia On: : Request URINALYSIS, W/ MICRO (01730)Indication: Hypertension, renal disease On: : Request MICROALBUMIN: CREATININE RATIO (21436) AND (14652)Indication: Hypertension, renal disease On: : Request METABOLIC PANEL, COMPREHENSIVE (27101)Indication: Hypertension, renal disease On: : Request LIPID PANEL (13420)Indication: Hypercholesteremia On: : Request CBC W/AUTO DIFF WBC ([id number])Indication: Hypertension, renal disease On: : Request VITAMIN B-12 (CYANOCOBALAMIN) (57003)Indication: Other vitamin B12 deficiency anemia On: :19 Request CBC WITH MANUAL DIFF ([id number])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 On: 17-Feb-2016 Request Comments: STANDING ORDER CBC WITH MANUAL DIFF (21205)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 On: 03-Feb-2016 Request Comments: STANDING ORDER CBC WITH MANUAL DIFF ([id number])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 On: 20-Jan-2016 Request Comments: STANDING ORDER CBC WITH MANUAL DIFF ([id number])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 On: 06-Jan-2016 Request Comments: STANDING ORDER CBC WITH MANUAL DIFF ([id number])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 On: 23-Dec-2015 Request Comments: STANDING ORDER CBC WITH MANUAL DIFF ([id number])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 On: 09-Dec-2015 Request Comments: STANDING ORDER CBC WITH MANUAL DIFF ([id number])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 On: 25-Nov-2015 Request Comments: STANDING ORDER CBC W/AUTO DIFF WBC ([id number])Indication: Anemia, unspecified On: 23-Nov-2015 Request CBC W/AUTO DIFF WBC ([id number])Indication: Anemia, unspecified On: 20-Nov-2015 Request CBC W/AUTO DIFF WBC ([id number])Indication: Anemia, unspecified On: 17-Nov-2015 Request CBC W/AUTO DIFF WBC (03057)Indication: Anemia, unspecified On: 14-Nov-2015 Request CBC W/AUTO DIFF WBC ([id number])Indication: Anemia, unspecified On: 11-Nov-2015 Request CBC WITH MANUAL DIFF ([id number])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 On: 11-Nov-2015 Request Comments: STANDING ORDER CBC W/AUTO DIFF WBC ([id number])Indication: Anemia, unspecified On: 08-Nov-2015 Request CBC W/AUTO DIFF WBC ([id number])Indication: Anemia, unspecified On: 05-Nov-2015 Request CBC W/AUTO DIFF WBC ([id number])Indication: Anemia, unspecified On: 02-Nov-2015 Request CBC W/AUTO DIFF WBC ([id number])Indication: Anemia, unspecified On: 30-Oct-2015 Request CBC WITH MANUAL DIFF ([id number])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 On: 28-Oct-2015 Request Comments: STANDING ORDER CBC W/AUTO DIFF WBC ([id number])Indication: Anemia, unspecified On: 27-Oct-2015 Request CBC W/AUTO DIFF WBC ([id number])Indication: Anemia, unspecified On: 24-Oct-2015 Request CBC W/AUTO DIFF WBC ([id number])Indication: Anemia, unspecified On: 21-Oct-2015 Request CBC W/AUTO DIFF WBC ([id number])Indication: Anemia, unspecified On: 18-Oct-2015 Request CBC W/AUTO DIFF WBC ([id number])Indication: Anemia, unspecified On: 15-Oct-2015 Request CBC W/AUTO DIFF WBC ([id number])Indication: Anemia, unspecified On: 12-Oct-2015 Request CBC WITH MANUAL DIFF ([id number])Indication: Unspecified Diagnosis On: 25-Xpt-951201:43 Request CBC W/AUTO DIFF WBC ([id number])Indication: Anemia, unspecified On: 09-Oct-2015 Request FECAL OCCULT- Tubes sent home (89323)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 On: 58-Wap-492578:23 Request CBC W/AUTO DIFF WBC ([id number])Indication: Anemia, unspecified On: 06-Oct-2015 Request CBC W/AUTO DIFF WBC ([id number])Indication: Anemia, unspecified On: 03-Oct-2015 Request CBC W/AUTO DIFF WBC ([id number])Indication: Anemia, unspecified On: 30-Sep-2015 Request CBC WITH MANUAL DIFF ([id number])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 On: 30-Sep-2015 Request Comments: STANDING ORDER CBC W/AUTO DIFF WBC ([id number])Indication: Anemia, unspecified On: 27-Sep-2015 Request CBC W/AUTO DIFF WBC ([id number])Indication: Anemia, unspecified On: 24-Sep-2015 Request CBC W/AUTO DIFF WBC ([id number])Indication: Anemia, unspecified On: 21-Sep-2015 Request HEMOGLOBIN & HEMATOCRITIndication: Low hemoglobin and low hematocrit On: 55-Cki-540891:44 Request CBC W/AUTO DIFF WBC ([id number])Indication: Anemia, unspecified On: 18-Sep-2015 Request CBC WITH MANUAL DIFF ([id number])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 On: 37-Ued-752823:26 Request Comments: STANDING ORDER CBC W/AUTO DIFF WBC ([id number])Indication: Anemia, unspecified On: 15-Sep-2015 Request CBC W/AUTO DIFF WBC ([id number])Indication: Anemia, unspecified On: 12-Sep-2015 Request CBC W/AUTO DIFF WBC ([id number])Indication: Anemia, unspecified On: 09-Sep-2015 Request CBC W/AUTO DIFF WBC ([id number])Indication: Anemia, unspecified On: 06-Sep-2015 Request CBC W/AUTO DIFF WBC ([id number])Indication: Anemia, unspecified On: 03-Sep-2015 Request CBC W/AUTO DIFF WBC ([id number])Indication: Anemia, unspecified On: 31-Aug-2015 Request CBC W/AUTO DIFF WBC ([id number])Indication: Anemia, unspecified On: 9-Fim-583743:38 Request Urine Protein Electrophoresis (UPEP) ([id number])Indication: Chronic kidney disease (CKD), stage 2 (mild) On: 20-Ofp-108243:18 Request Serum Protein Electrophoresis (SPEP) ([id number])Indication: Chronic kidney disease (CKD), stage 2 (mild) On: 35-Yvi-822094:18 Request MAGNESIUM ([id number])Indication: Chronic kidney disease (CKD), stage 2 (mild) On: 19-Sbm-183304:18 Request PHOSPHORUS ([id number])Indication: Chronic kidney disease (CKD), stage 2 (mild) On: 05-Cuf-440721:18 Request CALCIFEDIOL ([id number])Indication: Chronic kidney disease (CKD), stage 2 (mild) On: 16-Mxq-319722:18 Request PARATHORMONE ([id number])Indication: Chronic kidney disease (CKD), stage 2 (mild) On: 57-Yzf-916609:18 Request TSH ([id number])Indication: CAD in [place] artery On: :16 Request URINALYSIS, W/ MICRO (14804)Indication: Hypertension, renal disease On: :16 Request MICROALBUMIN: CREATININE RATIO ([id number]) AND ([id number])Indication: Hypertension, renal disease On: :16 Request METABOLIC PANEL, COMPREHENSIVE (06418)Indication: Hypertension, renal disease On: :16 Request LIPID PANEL (41275)Indication: Hypercholesteremia On: :16 Request CBC W/AUTO DIFF WBC ([id number])Indication: Hypertension, renal disease On: 50-Bff-341036:16 Request HCT (Hematocrit) ([id number])Indication: Abnormal blood chemistry On: 8-Mzz-477130:00 Request HGB (HEMOGLOBIN) (32047)Indication: Abnormal blood chemistry On: 7-Lzd-871113:00 Request IRON ([id number])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 On: 27-Mxx-955438:32 Request Iron ([id number])Indication: Anemia, unspecified On: 92-Epn-152104:31 Request CBC W/AUTO DIFF WBC ([id number])Indication: Anemia, unspecified On: 98-Rur-259527:37 Request IRON (68043)Indication: Anemia, unspecified On: 48-Zyp-874916:41 Request IRON ([id number])Indication: Anemia, unspecified On: 05-Txs-380142:59 Request CBC, PLATELETS & MANUAL DIFF ([id number])Indication: Anemia, unspecified On: 0-Xji-516812:54 Request Comments: recheck 03-08-14 LIAM TEST, DIRECT (27751)Indication: Anemia, unspecified On: 65-Dtb-651585:25 Request FOLIC ACID SERUM (38757)Indication: Anemia, unspecified On: Request Methymalonic Acid, Serum (84265)Indication: Anemia, unspecified On: Request VITAMIN B-12 (CYANOCOBALAMIN) ([id number])Indication: Anemia, unspecified On: : Request RETICULOCYTE COUNT MANUL ([id number])Indication: Anemia, unspecified On: Request LDH (LD) (LACTATE DEHYDROGENASE) ([id number])Indication: Anemia, unspecified On: Request IRON BINDING CAPACITY (TIBC) ([id number])Indication: Anemia, unspecified On: Request IRON ([id number])Indication: Anemia, unspecified On: Request FERRITIN ([id number])Indication: Anemia, unspecified On: Request CBC, PLATELETS & AUT DIFF ([id number])Indication: Anemia, unspecified On: Request HCT (Hematocrit) ([id number])Indication: Abnormal blood chemistry On: :18 Request Comments: stat HGB (HEMOGLOBIN) ([id number])Indication: Abnormal blood chemistry On: :17 Request Comments: stat FECAL OCCULT HGB ASSAY- tubes sent home ([id number])Indication: Encounter for Medicare annual wellness exam On: 74-Oxq-073837:46 Request TSH ([id number])Indication: Hypertension, renal disease On: :07 Request URINALYSIS, W/ MICRO ([id number])Indication: Hypertension, renal disease On: 8-Xru-721275:07 Request MICROALBUMIN: CREATININE RATIO ([id number]) AND ([id number])Indication: Hypertension, renal disease On: 9-Pwa-664583:06 Request METABOLIC PANEL, COMPREHENSIVE ([id number])Indication: Hypertension, renal disease On: : Request LIPID PANEL ([id number])Indication: Hypertension, renal disease On: : Request CBC WITH MANUAL DIFF ([id number])Indication: Hypertension, renal disease On: 4-Afl-052630:06 Request Metabolic Panel, Basic ([id number])Indication: Hypertension, renal disease On: 9-Wqx-126282:34 Request CREATININE CLEARANCE ([id number])Indication: Hypertension, renal disease On: :52 Request CBC WITH MANUAL DIFF ([id number])Indication: Hypertension, renal disease On: :32 Request METABOLIC PANEL, COMPREHENSIVE ([id number])Indication: Hypertension, renal disease On: :32 Request Sed Rate Erythrocyte ([id number])Indication: Hypertension, renal disease On: :32 Request MICROALBUMIN 24 HOUR OR RANDOM ([id number])Indication: Hypertension, renal disease On: :32 Request Urine Protein Electrophoresis (UPEP) ([id number])Indication: Hypertension, renal disease On: : Request Serum Protein Electrophoresis (SPEP) ([id number])Indication: Hypertension, renal disease On: : Request MAGNESIUM ([id number])Indication: Hypertension, renal disease On: :32 Request PHOSPHORUS ([id number])Indication: Hypertension, renal disease On: :32 Request CALCIFEDIOL ([id number])Indication: Hypertension, renal disease On: :32 Request PARATHORMONE ([id number])Indication: Hypertension, renal disease On: :32 Request FECAL OCCULT HGB ASSAY- tubes sent home ([id number])Indication: Weight loss On: 8-Rwp-073490:07 Request HEPATIC FUNCTION PANEL ([id number])Indication: Hypercholesteremia On: :26 Request LIPID PANEL ([id number])Indication: Hypercholesteremia On: :26 Request C-REACTIVE PROTEIN ([id number])Indication: Abdominal pain, unspecified abdominal location On: :43 Request Sedimentation Rate-ESR ([id number])Indication: Abdominal pain, unspecified abdominal location On: :43 Request Metabolic Panel, Comprehensive ([id number])Indication: Abdominal pain, unspecified abdominal location On: :42 Request CBC with manual diff ([id number])Indication: Abdominal pain, unspecified abdominal location On: :42 Request Lipase ([id number])Indication: Abdominal pain, unspecified abdominal location On: :42 Request Amylase (10476)Indication: Abdominal pain, unspecified abdominal location On: 27-Aug-20108:42 Request TSH ([id number])Indication: Hypercholesteremia On: :17 Request URINALYSIS, W/ MICRO ([id number])Indication: Hypertension, renal disease On: :17 Request MICROALBUMIN: CREATININE RATIO ([id number]) AND ([id number])Indication: Hypertension, renal disease On: :17 Request METABOLIC PANEL, COMPREHENSIVE (22102)Indication: Hypertension, renal disease On: :17 Request CBC WITH MANUAL DIFF ([id number])Indication: Hypertension, renal disease On: :17 Request LIPID PANEL ([id number])Indication: Hypercholesteremia On: :17 Request Creatine ([id number])Indication: Hypertension, renal disease On: 61-Jqi-185188:19 Request Urinalysis, Office (51857)Indication: Abdominal pain, unspecified abdominal location On: 51-Mcv-466606:09 Request TSH ([id number])Indication: Hypercholesteremia On: 42-Vjw-989849:07 Request METABOLIC PANEL, COMPREHENSIVE ([id number])Indication: Hypertension, renal disease On: 76-Mgp-309823:06 Request LIPID PANEL ([id number])Indication: Hypertension, renal disease On: 50-Paz-192639:06 Request CBC WITH MANUAL DIFF ([id number])Indication: Hypertension, renal disease On: 63-Xhn-296932:06 Request Folate ([id number])Indication: Fatigue On: 32-Rkx-625730:41 Request FECAL OCCULT HGB ASSAY- tubes sent home ([id number])Indication: Well woman exam On: 27-Ibo-607913:37 Request HEPATIC FUNCTION PANEL ([id number])Indication: Hypercholesteremia On: 60-Yvr-112931:36 Request LIPID PANEL ([id number])Indication: Hypercholesteremia On: 16-Nqe-111709:36 Request Comments: do in 2- 2 1/2 months CCP ANTIBODY ([id number])Indication: Pain in thoracic spine On: 5-Awl-083672:18 Request Vitamin D Hydroxy (88532)Indication: Osteopenia On: 57-Gnt-310019:19 Request HEPATIC FUNCTION PANEL ([id number])Indication: Hypercholesteremia On: 36-Pgg-460200:15 Request LIPID PANEL ([id number])Indication: Hypercholesteremia On: :15 Request Comments: do in 3 mo LIPOPROTEIN, BLD, BY NMR ([id number])Indication: Hypercholesteremia On: :15 Request Urinalysis, Office ([id number])Indication: BLADDER RETENTION OF URINE On: :19 Request Comments: NEG TSH ([id number])Indication: Irritable bowel syndrome On: :53 Request MICROALBUMIN: CREATININE RATIO On: :53 Request ([id number]) AND ([id number]) METABOLIC PANEL, COMPREHENSIVE On: :53 Request ([id number]) LIPOPROTEIN, BLD, BY NMR ([id number]) On: :53 Request LIPID PANEL (50436) On: :53 Request CBC WITH MANUAL DIFF ([id number]) On: :51 Request Planned Procedures Spirometry (43235)By: Chapis MONTGOMERY, On: 18-Oct-2017 Intent Priya Atkinson DO ELECTROCARDIOGRAM, COMPLETE (ECG) On: 18-Oct-2017 Intent (34195)By: Priya Jimenez DO, DO, Kathleen B 12 Injection, 1000 mcg (J3420)By: On: 15-Apr-2017 Intent Priya Jimenez DO, DO, Comments: 1 ml given lt arm lot [id number] exp 09/11 Priya B 12 Injection, 1000 mcg (J3420)By: On: 12-Nov-2016 Intent Priya Jimenez DO, DO, Kathleen INTENSIVE BEHAVIORAL THERAPY TO On: 08-Jul-2016 Intent REDUCE CARDIOVASCULAR DISEASE RISK, INDIVIDUAL, [id number], ANNUAL, 15 MINUTES ([id number])By: Priya Jimenez DO, DO, Kathleen ELECTROCARDIOGRAM, COMPLETE (ECG) On: 11-Jun-2016 Intent (37321)By: Priya Jimenez DO Comments: sinus jg no acute chg - nonspefic flattening st waves Priya Jimenez DO B 12 Injection, 1000 mcg (J3420)By: On: 05-Sep-2015 Intent Chapis DO, Priya Chapis DO, Comments: lot #[id number] exp 02-09 Left arm Priya EMGBy: Chapis DO, Priya Chapis On: 13-Aug-2015 Intent DO, Priya Nerve ConductionBy: Chapis DO, On: 13-Aug-2015 Intent Priya Chapis DO, Priya B 12 Injection, 1000 mcg (J3420)By: On: 13-Aug-2015 Intent Chapis DO, Priya Chapis DO, Comments: Lot:[id number]:09/09Dose:1mlRoute:IMSite:larmGiven By:JKMVIS signed Priya PNEUM VAC ADLT/IMUMNOSPR, SBC/INTRM On: 13-Aug-2015 Intent (36101)By: Chapis DOAdarshPriya Comments: pneumovaxlot:[id number]:01/31/17site:lt deltroute:IMDEmick, [place] Chapis DO, Priya Radiology - [...] DO, Comments: given - 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, WIND DEVELOPMENT DIRECTOR Priya Flu Vaccine (Quadrivalent) [id number]: On: 04-Feb-2015 Intent Chapis DO, Priya Chapis DO, Comments: lot [id number]: 10/24/2015site/route L janet, IMamt 0.5mlVIS and ABN [...] Six Minute Walk Assessment On: 07-Mar-2014 Intent ([id number])By: Priya Jimenez DO Comments: set up Priya Jimenez DO Prevnar 13 ([id number])By: Chapis MONTGOMERY On: 21-Feb-2014 Intent Priya Atkinson DO Comments: [id number] arm, IMAS ADMINISTRATION OF INFLUENZA VIRUS On: 21-Feb-2014 Intent VACCINE (G0008)By: Chapis MONTGOMERY, Comments: [id number] syringeL Dltd, IMAS, LPNABN and VIS signed Priya Atkinson DO Flu Vaccine (Quadrivalent) [id number]: On: 21-Feb-2014 Priya Matson DO, DO, Kathleen Bone Density StudyBy: Chapis MONTGOMERY, On: 26-Jul-2013 Intent Priya Atkinson DO Spirometry ([id number])By: Chapis MONTGOMERY On: 22-Feb-2013 Intent Priya Atkinson DO Comments: obstr present - presnet taking mdi's- and trying to quit with ecig FLU VAC, SPLIT, >3 YEARS, INTRAMUSC On: 22-Feb-2013 Intent ([id number])By: Joaquina Young LPN Comments: Lot:[id number]:6.14Amt:0.5mlRoute:IMSite: L DltdGiven By: NOEMY MazaVIS signed ADMINISTRATION OF INFLUENZA VIRUS On: 22-Feb-2013 Intent VACCINE (G0008)By: Joaquina Young LPN Eprescribed prescriptions On: 31-Aug-2012 Intent (G8553)By: Joaquina Young LPN Eprescribed prescriptions On: 15-Aug-2012 Intent (G8553)By: Joaquina Young LPN SLEEP STUDY, ATTENDED ([id number])By: On: 08-Aug-2012 Intent Chapis DO, Priya Chapis [...] ([id number])By: Kenn Aragon CNP Comments: lot number [id number] exo 08/2014 IM left hip 125mg solumedrol Radiology - ChestBy: Elda LOU, On: 01-Mar-2012 Intent Kenn Hartley Gnsbhvllb-Uld-Fuqh (44026)By: Elda On: 01-Mar-2012 Intent Kenn LOU Pulse Oximetry (49449)By: Kashif SALGUERO, On: 01-Mar-2012 Intent Jen Funk Comments: 97 FLU VAC, SPLIT, >3 YEARS, INTRAMUSC On: 31-Dec-2011 Intent ([id number])By: Priya Jimenez DO Comments: Lot #[id number]-L dltd, IMDose prefilled syringegiven by:NOEMY HardinVIS signed Priya Jimenez DO ADMINISTRATION OF INFLUENZA VIRUS On: 31-Dec-2011 Intent VACCINE (G0008)By: Priya Jimenez DO, DO, Kathleen Esophagram with 13 mm tabletBy: On: 31-Dec-2011 Intent Priya Jimenez DO, DO, Kathleen EKG ([id number])By: Joaquina Young On: 31-Dec-2011 Josefina SALGUERO Comments: nsr no acute chg -- LAD/ q waves in inferior leads Eprescribed prescriptions On: 31-Dec-2011 Intent (G8553)By: Joaquina Young LPN Spirometry (68460)By: Chapis MONTGOMERY, On: 12-Aug-2011 Intent Priya Atkinson DO Comments: 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
--- OUTSIDE RECORDS SUMMARY | 2018-05-23 13:34 | XMS RPT_ITS | Continuity of Care Document ---
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 Alcohol: [...] pharmacolo gic prophylaxis will use SCD 08/23/15 4898 <Electronically signed by Stephen Aquino MD> Date Stephen Aquino MD Cosigner Signatu re (if applicable): Date CC: Stephen Aquino MD; Priya Jimenez DO Signed 13-Aug-2015 ELECTROCARDIOGRAM, COMPLETE (ECG) (90138) Comments: NSR NO ACUTE CHG Result: [MEASUREMENTS ANALYSIS] Date of Test: 08/13/2015 14:49:40; Heart Rate: 70; MO Interval: 130; QRS: 116; QT Interval: 396; Corrected QT Interval (QTc): 413; P Wave Jupiter: 51; QRS Wave Jupiter: -7; T Wave Jupiter : 44; Blood Pressure: 140/78 [ECG DIAGNOSTIC STATEMENTS] Date of Test: 08/13/2015 14:49:40; Summary: Sinus Rhythm WITHIN NORMAL LIMITS 03-May-2015 Pelvis 1 or 2 Views Result: Comments: See Note; NOTES: [facility] Imaging Services [address] [place] [address] Verdana 4d Pelvis 1 or 2 Views MR#: [id number] Acct: [id number] Name: John DREW Rep #: [id number] : 1935 F 79 From: Kit Castillo MD PCP: Priya Jimenez DO Status: REG CLI Study: Pelvis 1 or 2 Views Date of Exam: 05/03/15 Exam# [id number] Ordering Dr: Priya Yepez DO STUDY: X-RAY [...] Kit Castillo MD at 14:00 EST Tel [phone], Service support [phone], RAD/Pelvis 1 or 2 Views IMPRESSION: Subacute he aling fracture of the right intertrochanteric region with a cephalic migration of the distal fracture fragment. Healing fractures involving the medial aspect of the left superior and inferior pubic r ami. Electronically Signed: Kit Castillo MD at 14:00 EST Tel [phone], Service support [phone], CC: Priya Jimenez DO Vehicle Sales Professional: Signed 03-May-2015 Hip min 2 Views Result: Comments: See Note; NOTES: [facility] Imaging Services [address] [place] [address] Verdana 4d Hip min 2 Views MR#: [id number] Acct: [id number] Name: KILEY DREW Rep #: [id number] : 1935 F 79 From: Kit Castillo MD PCP: Priya Jimenez DO Status: REG CLI Study: Hip min 2 Views Date of Exam: 05/03/15 Exam# [id number] Ordering Dr: Adarsh Jimenez DO STUDY: X-RAY [...] Kit Castillo MD at 13:58 EST Tel [phone], Service support [phone], RAD/Hip min 2 Views IMPRESSION: A right intratrochanteric fracture with a cephalic migration of the distal fracture fragment. Healing fracture involving the medial aspect of the left superior pubic ramus. Electronically Signed: Kit Castillo MD at 13:58 EST Tel [phone], Service support [phone], CC: Priya Jimenez DO Vehicle Sales Professional: Signed 03-Apr-2015 Lower Ext Joint Only (Routine) Result: Comments: See Note; NOTES: [facility] Imaging Services [address] [place] [address] Verdana 4d Lower Ext Joint Only (Routine) MR#: [id number] Acct: [id number] Na me: KILEY DREW Rep #: [id number] : 1935 F 79 From: César Conley MD PCP: Priya Jimenez DO Status: REG CLI Study: Lower Ext Joint Only (Routine) Date of Exam: 04/03/15 Exam# [id number] Ordering Dr: Priya Jimenez DO STUDY: MRI [...] FACR at 13:32 EST , Service support [phone], CC: Priya Jimenez DO Vehicle Sales Professional: Signed 14-Feb-2015 Emergency Department Summary Result: Comments: See Note; NOTES: [facility] Medical Records Department [address] [place] [address] Emergency Department Summary 02/14/152013 MR#: [id number] Acct: [id number] Name: KILEY DREW Rep #: [id number] : 1935 79 From: Cash Mckenzie MD [...] Instructions: ED Contusion, Lower Extremity Referrals: Priya Jimenez DO [Primary Care Provider] - As Needed What to do if yo u have Problems For any increased pain, shortness of breath, bleeding, nausea or vomiting, chest pain, or any unexpected problems, contact your doctor. Call [facility] ([phone]) or report to the closest Emergency Room. Call 911 if necessary. 02/14/152016 <Electronically signed by Cash Mckenzie MD> Date Cash Mckenzie MD Cosigner Signature (If Indicated): Date CC: Priya Jimenez DO 14-Feb-2015 Knee 4 or More Views Result: Comments: See Note; NOTES: [facility] Imaging Services [address] [place] [address] Verdana 4d Knee 4 or More Views MR#: [id number] Acct: [id number] Name: KILEY DREW Rep #: [id number] : 1935 F 79 From: Safia Anton MD PCP: Priya Jimenez DO Status: DEP ER Study: Knee 4 or More Views Date of Exam: 02/14/15 Exam# [id number] Ordering Dr: Marcella Mckenzie MD STUDY: X-RAY [...] 9:19 EDT Tel , Service s upport [phone], RAD/Knee 4 or More Views IMPRESSION: Degenerative arthrosis. Electronically Signed: Morris Anton MD at 9:19 EDT Tel , Service support [phone], CC: Priya Jimenez DO; Cash Mckenzie MD Vehicle Sales Professional: Signed 29-Jan-2015 Pulmonary Function Report Comp Result: Comments: See Note; NOTES: [facility] Pulmonary Services/Neurology [address] [place] [address] Pulmonary Function Test (Comp) MR#: [id number] Acct: [id number] Name: KILEY WADE Rep #: [id number] : 1935 79 From: Sincere Castillo MD Referring Dr: Sincere Castillo MD Status: REG CLI Ordering Dr: Sincere Castillo MD Date: 01/28/15 Location: [facility] Sex: F C DATE OF S ERVICE: [...] 2014. SINCERE CASTILLO MD T: NTS JOB: [id number] 01/29/15 1438 <Electronically signed by Sincere Castillo MD> Date Sincere Castillo MD CC: Sincere Castillo MD; Priya Jimenez DO Date Di ctated: 01/29/15801 Date Transcribed: 01/29/15801 Vehicle Sales Professional: Signed 10-Oct-2014 Spirometry (51099) Result: 10-Oct-2014 EKG (02931) Comments: sinus jg no acute chg Result: [MEASUREMENTS ANALYSIS] Date of Test: 10/10/2014 12:14:56; Heart Rate: 45; MO Interval: 154; QRS: 114; QT Interval: 482; Corrected QT Interval (QTc): 456; P Wave Jupiter: 57; QRS Wave Jupiter: -22; T Wave Axi s: -1; Blood Pressure: 120/62 [ECG DIAGNOSTIC STATEMENTS] Date of Test: 10/10/2014 12:14:56; Summary: Marked sinus Bradycardia - Nonspecific T-abnormality. ABNORMAL 26-Jul-2014 History and Physical Exam Result: Comments: See Note; NOTES: [facility] Medical Records Department [address] [place] [address] History and Physical 07/26/142238 MR#: [id number] Acct: [id number] Name: KILEY BOND Rep #: [id number] : 1935 78 From: Selma Patterson PCP: Priya Jimenez DO Status: REG ER Y Location: ED Problem List (1) Chronic obstructive pulmonary disease Status: Chr onic Comment: With chronic respiratory failure on 3 L oxygen 35-jntw-ykgw history smoking (2) HLD (hyperlipidemia) Status: Chronic [...] of GI bleed who presents to the [facility] ED on 07/26/14 w/ complai nt of [...] chronic respiratory failure on 3 L oxygen 90-joqz-ghnl history smoking Coronary atherosclerosis of atka coronary artery (Chronic) Status post PTCA and [...] repair. 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 [...] 78.0 H Lymph % (Auto) 7.8 L [place] % (Auto) 11.3 H Eos % (Auto) [...] of GI bleed who presents to the [facility] ED on 07/26/14 w/ complaint of acute [...] y signed by Selma Patterson > Date Kendy Patterson CC: Selma Patterson; Priya Chapis Signed 03-Jul-2014 L/S Spine Min 4 Views Result: Comments: See Note; NOTES: [facility] Imaging Services [address] [place] [address] Radiology Report MR#: [id number] Acct: [id number] Name: KILEY DREW Rep #: [id number] : 1935 F 78 From: Toy Loja MD PCP: Priya Jimenez DO Status: REG CLI Study: L/S Spine Min 4 Views Date of Exam: 07/03/14 Exam# [id number] Ordering Dr: Kenn Aragon STUDY: X-RAY - [...] MD at 18:34 EDT , Service support [phone], Fax RAD/L/S Spine Min 4 Views IMPRESSION: Stable compression deformity of L5. Stable compression deformity of T11. Electronically Signed: Toy Loja MD at 18:34 EDT , Service support [phone], CC: Kenn Aragon; Priya Jimenez DO Vehicle Sales Professional: Signed 11-May-2014 Chest 1 View (Portable) Result: Comments: See Note; NOTES: [facility] Imaging Services [address] [place] [address] Radiology Report MR#: [id number] Acct: [id number] Name: KILEY DREW Rep #: [id number] : 1935 F 78 From: Ester Bautista MD PCP: Priya Jimenez DO Status: REG ER Study: Chest 1 View (Portable) Date of Exam: 05/11/14 Exam# [id number] Ordering Dr: Moncho Sahu MD STUDY: X-RAY [...] at 14:05 EST Tel , Service support [phone], RAD/Chest 1 View (Portable) IMPRESSION: There are stable findings. Electronically Signed: Ester Bautista MD at 14:05 EST , Service support [phone], CC: Priya Jimenez DO; Moncho Sahu MD Vehicle Sales Professional: Signed 23-Apr-2014 Chest PA and Lateral Result: Comments: See Note; NOTES: [facility] Imaging Services [address] [place] [address] Radiology Report MR#: [id number] Acct: [id number] Name: KILEY DREW Rep #: [id number] : 1935 F 78 From: Edmundo Zhou MD PCP: Priya Jimenez DO Status: REG CLI Study: Chest PA and Lateral Date of Exam: 04/23/14 Exam# [id number] Ordering Dr: Sincere Castillo MD STUDY: X-RA [...] Danny Zhou MD at 14:32 EST Tel [phone], Service support [phone], CC: Sincere Castillo MD; Priya Jimenez DO Vehicle Sales Professional: Signed 17-Apr-2014 Pulmonary Function Report Comp Result: Comments: See Note; NOTES: [facility] Pulmonary Services/Neurology [address] [place] [address] Pulmonary Function Test (Comp) MR#: [id number] Acct: [id number] Name: KILEY TEMPLE Rep #: [id number] : 1935 78 From: Sincere Castillo MD Referring Dr: Sincere Castillo MD Status: REG CLI Ordering Dr: Sincere Castillo MD Date: 04/13/14 Location: [facility] Sex: F C Date: 03/26 01/07 Tech.: [...] Pre Post Post Post Anibal % Ref Anibla % Ref % Chg Raw Total (cmH20/L/sec) [...] Dictated: 04/14/14 1110 Date Transcribed: 04/15/14 0705 Vehicle Sales Professional: CAROL ANN Signed 31-Jan-2014 Echocardiogram, Limited Study Result: Comments: See Note; NOTES: [facility] Cardiovascular Services [address] [place] [address] Echo, Limited Study 01/31/14 1347 MR#: [id number] Acct: [id number] Name: KILEY TEMPLE Rep #: [id number] : 1935 78 From: Pete Castro MD Attending Dr: Lianne Ocasio Status: REG I Ordering Dr: Lianne Ocasio Date: 01/31/14 Location: [facility] Sex: F C Admitted: Procedure This was [...] 1539 Date Pete Castro MD CC: Priya Ocasio Date Dictated: 01/31/14 1347 Date Transcribed: 01/31/14 153 Vehicle Sales Professional: Signed 13-Nov-2013 Echocardiogram Complete Result: Comments: See Note; NOTES: [facility] Cardiovascular Services [address] [place] [address] Echo Complete 11/13/13 1321 MR#: [id number] Acct: [id number] Name: REGAN DREW RA Rep #: [id number] : 1935 78 From: Kaden Barboza MD Attending Dr: Tamra AVILA,Kaden Status: REG CLI Ordering Dr: Kaden Barboza MD Date: 11/13/13 Location: [facility] Sex: F C Admitted: Tomy hartley This was a 2D Doppler, Color Flow [...] Ordering Physician: Kaden Barboza Performed By: Zee Joya, RD : Kaden Barboza MD; Priya Jimenez DO Date Dictated: 11/13/13 1321 Date Transcribed: 11/13/13 1631 Vehicle Sales Professional: Signed 27-Sep-2013 Dexa Bone Density Study (HP) Result: Comments: See Note; NOTES: [facility] Imaging Services [address] [place] [address] Bone Density Report MR#: [id number] Acct: [id number] Name: KILEY DREW Rep #: [id number] : 1935 F 78 From: Kit Castillo MD PCP: Priya Jimenez DO Status: REG CLI Study: Dexa Bone Density Study (HP) Date of Exam: 09/27/13 Exam# [id number] Ordering Dr: Terrie Jimenez DO STUDY: DUAL [...] a moderate fracture risk. On the lateral tour driver view, there is evidence of increased kyphosis. [...] Kit Castillo MD at 14:27 EDT Tel [phone], Service support [phone], CC: Priya Jimenez DO Vehicle Sales Professional: Signed 16-Aug-2013 Kidney and Bladder Result: Comments: See Note; NOTES: [facility] Imaging Services [address] [place] [address] Ultrasound Report MR#: [id number] Acct: [id number] Name: RAJENDRAKILEY Rep #: [id number] : 1935 F 77 From: Kit Castillo MD PCP: Priya Jimenez DO Status: REG CLI Study: Kidney and Bladder Date of Exam: 08/16/13 Exam# [id number] Ordering Dr: Ross Mello MD STUDY: RENAL [...] Kit Castillo MD at 9:30 EDT Tel [phone], Service sup port [phone], CC: Priya Jimenez DO; Ross Mello MD Vehicle Sales Professional: Signed Immunization Name Dates Details Influenza (3 years and up) on: 03-Jan-2009 Comments: Lot #:[id number] date: mount given: 0.5 mlRoute: IMSite [...] Active Vital Signs Date Test Result Details 00-Xec-119124:21 Comments: hearing wnlDr. Chambers and had glaucoma [...] Calculated 1.73 m2 Head Circumference 0.00 cm 25-Axp-087517:34 Pulse 76 /min Comments: Pattern: Regular Respiration [...] W/Diff, Automated Comments: Reason for Laboratory Test .[facility] [address] [place], [place], [address] Absolute Lymph 0.86 {X10_3/ul} (Normal) Range: 0.83-4.51 [...] 4.2-5.4 WBC 8.0 K/mm3 (Normal) Range: 4.4-11.0 :45 Comprehensive Metabolic Profil Comments: [facility] [address] [place], [address] GAP 6 (Normal) Range: 5-15 CO2 42.0 [...] A.D.A. criteria.Please note revised GLUCOSE reference range ynopnphvp35/02/2018. :45 Ferritin Comments: [facility] [address] [place], [address] FERRITIN 261 ng/mL (Abnormal) Range: 8-252 :45 Iron+Iron Binding Capacity Comments: [facility] [address] [place], [place], [address] IRON SATURATION 19.1 % (Normal) Range: 15.0-55.0 IRON 63 ug/dL (Normal) Range: 50-170 TIBC 329 ug/dL (Normal) Range: 250-450 :00 CBC W/Diff, Automated Comments: [facility] [address] [place], [place], [address] Absolute Lymph 1.19 {X10_3/ul} (Normal) Range: 0.83-4.51 [...] Range: 4.4-11.0 25-Oct-20170:00 Comprehensive Metabolic Profil Comments: [facility] [address] [place], [place], [address] GAP 5 (Normal) Range: 5-15 CO2 43.0 [...] Comments: Please note revised GLUCOSE reference range mnizutyda29/02/2018. 25-Oct-20170:00 Lipid Profile Comments: [facility] [address] [place], [address] VLDL 12 mg/dL (Normal) Range: 5-40 LDL [...] 200-240 mg/dL Borderline >240 mg/dL High Risk :00 Microalb:Creat Ratio,Random UR Comments: [facility] [address] [place], [address] MALB:CREAT 38.8 {mg/g_CRE} (Abnormal) MICROALBUMIN,UR 27.3 mg/L (Normal) UR CREAT 70.40 mg/dL (Normal) :00 Miscellaneous Lab Procedure Comments: Test(s) Ordered: [id number] calcifediol room temp/ serum or [facility] [address] [place], [address] MISC Comments: TEST RESULT LIMITSCalcitriol (1,25 di-OH Vit D) 42.8 pg/mL 19.9 - 79.3 TESTING PERFORMED AT [facility] (Normal) NAL REPORT ON FILE IN LAB CONTAINS ADDITIONAL TEST SITE INFORMATION. TEST :00 Thyroid Stim Hormone (TSH) Comments: [facility] [address] [place], [address] TSH 2.95 {uIU/mL} (Normal) Range: 0.358-3.74 :00 Urinalysis, Complete Comments: How was Urine Obtained? CLEAN [facility] [address] [place], [address] HYALINE CAST 0-5 SEEN {/lpf} (Normal) Range: [...] (Normal) CLARITY Clear (Normal) COLOR Yellow (Normal) :00 Vitamin B12 627 pg/mL (Normal) Comments: [facility] [address] [place], [address] Range: 211-911 :00 CBC W/Diff, Automated Comments: [facility] [address] [place], [address] Absolute Lymph 1.16 {X10_3/ul} (Normal) Range: 0.83-4.51 [...] 4.2-5.4 WBC 9.0 K/mm3 (Normal) Range: 4.4-11.0 78-Skp-30310:00 Vitamin B12 851 pg/mL (Normal) Comments: [facility] [address] [place], [address] Range: 211-911 53-Roy-246814:33 CBC W/Diff, Automated Comments: [facility] [address] [facility] [place], [address] Absolute Lymph 1.38 {X10_3/ul} (Normal) Range: 0.83-4.51 [...] 4.2-5.4 WBC 8.4 K/mm3 (Normal) Range: 4.4-11.0 83-Yzu-862040:20 Basic Metabolic Profile (BMP) Comments: [facility] [address] [facility] [place], [address] GAP Test not performed (Normal) Range: 5-15 CO2 > 45.0 mmol/L (Abnormal) Range: 21.0-32.0 Comments: Critical Result(s) Called at: 13:32:41 05/19/2017 by:Julia Maza CL 90 mmol/L (Abnormal) Range: 98-107 K [...] 7-18 GLU 103 mg/dL (Normal) Range: 70-110 1-Ubh-869126:00 Magnesium Comments: [facility] [address] [place], [address] MG 1.8 mg/dL (Normal) Range: 1.8-2.4 3-Sto-865354:00 Potassium Comments: [facility] [address] [place], [place], [phone]) K 3.4 mmol/L (Abnormal) Range: 3.5-5.1 1-Kwg-013764:18 CBC W/Diff, Automated Comments: [facility] [address] [place], [place], [phone] Absolute Lymph 1.22 {X10_3/ul} (Normal) Range: 0.83-4.51 [...] 4.2-5.4 WBC 8.9 K/mm3 (Normal) Range: 4.4-11.0 3-Nqs-781945:05 Comprehensive Metabolic Profil Comments: Reason for Laboratory Test .[facility] [address] [place], [address] GAP 3 (Abnormal) Range: 5-15 CO2 40.0 [...] 7-18 GLU 93 mg/dL (Normal) Range: 70-110 6-Grn-795012:05 Ferritin Comments: Reason for Laboratory Test .[facility] [address] [place], [address] FERRITIN 311 ng/mL (Abnormal) Range: 8-252 :05 Iron+Iron Binding Capacity Comments: Reason for Laboratory Test .[facility] [address] [place], [address] IRON SATURATION 16.5 % (Normal) Range: 15.0-55.0 IRON 53 ug/dL (Normal) Range: 50-170 TIBC 322 ug/dL (Normal) Range: 250-450 09-Rst-166173:36 CBC W/Diff, Automated Comments: [facility] [address] [place], [place], [address] Absolute Lymph 1.34 {X10_3/ul} (Normal) Range: 0.83-4.51 [...] 4.2-5.4 WBC 8.1 K/mm3 (Normal) Range: 4.4-11.0 56-Vqi-259178:36 Comprehensive Metabolic Profil Comments: Reason for Laboratory Test [facility] [address]qn[address]27 [facility]. [place], [place], [address] GAP 8 (Normal) Range: 5-15 CO2 38.0 [...] 7-18 GLU 80 mg/dL (Normal) Range: 70-110 14-Lct-880152:36 Ferritin Comments: Reason for Laboratory Test [facility] [address] [place], [address] FERRITIN 249 ng/mL (Normal) Range: 8-252 81-Qvx-377992:36 Iron Comments: Reason for Laboratory Test [facility] [address] [place], [address] IRON 69 ug/dL (Normal) Range: 50-170 0-Hwp-914704:40 CBC W/Diff, Automated Comments: [facility] [address] [place] [place], [address] Absolute Lymph 1.03 {X10_3/ul} (Normal) Range: 0.83-4.51 [...] 4.2-5.4 WBC 8.9 K/mm3 (Normal) Range: 4.4-11.0 5-Ivc-197863:40 Comprehensive Metabolic Profil Comments: Reason for Laboratory Test [facility] [address] [place], [address] GAP 3 (Abnormal) Range: 5-15 CO2 40.0 [...] 7-18 GLU 71 mg/dL (Normal) Range: 70-110 9-Hda-385091:40 Ferritin Comments: Reason for Laboratory Test [facility] [address] [place], [address] FERRITIN 178 ng/mL (Normal) Range: 8-252 3-Yop-727731:40 Iron Comments: Reason for Laboratory Test [facility] [address] [place], [address] IRON 59 ug/dL (Normal) Range: 50-170 39-Wdk-737745:12 CALCIFIDIOL (22849) VIT D 25 Comments: PATIENT WAS FASTINGPERFORMED BY: [facility] [address] [place] [id number] Vitamin D, 25-Hydroxy 21.8 ng/mL (Abnormal) Range: 30.0-100.0 Comments: Vitamin D deficiency has been defined by the [place] ofMedicine and an Endocrine Society practice guideline as alevel of serum 25-OH vitamin D less than 20 ng/mL (1,2).The Endocrine Society went on to further define vitamin Dinsufficiency as a level between 21 and 29 ng/mL (2).1. IOM ([place] of Medicine). 2010. Dietary reference intakes for calcium and D. [place]: The National Academies Press.2. Armond MF, Rosa [place], Kyler ANDREWS, et al. Evaluation, treatment, and prevention of vitamin D deficiency: an Endocrine Society clinical practice guideline. JCEM. 2010; 96(7):1911-30. 08-Zvt-954243:12 VITAMIN B-12 (CYANOCOBALAMIN) Comments: PATIENT WAS FASTINGPERFORMED BY: [employer] [address] [place] [id number] ([address]) Vitamin B12 517 pg/mL (Normal) Range: 211-946 09-Wuc-701235:12 TSH (08927) Comments: PATIENT WAS FASTINGPERFORMED BY: [facility] [address] [place] [id number] TSH 1.500 {uIU/mL} (Normal) Range: 0.450-4.500 02-Zmm-122762:12 METABOLIC PANEL, COMPREHENSIVE Comments: PATIENT WAS FASTINGPERFORMED BY: [facility] [address] [place] [id number] ([address]) ALT (SGPT) 14 [iU]/L (Normal) Range: 0-32 [...] Glucose, Serum 83 mg/dL (Normal) Range: 65-99 13-Mvg-441583:12 LIPID PANEL (30900) Comments: PATIENT WAS FASTINGPERFORMED BY: [facility] HospitalXjxrqu0372 [facility] [id number] LDL/HDL Ratio 1.0 {ratio_units} (Normal) Range: 0.0-3.2 Comments: LDL/HDL Ratio Men Women 1/2 Avg.Risk 1.0 1.5 Av g.Risk 3.6 3.2 2X Avg.Risk 6.2 5.0 3X Avg.Risk 8.0 6.1 LDL Cholesterol Calc 77 mg/dL (Normal) Range: 0-99 VLDL Cholesterol Pete 18 mg/dL (Normal) Range: 5-40 HDL Cholesterol 78 mg/dL (Normal) Triglycerides 89 mg/dL (Normal) Range: 0-149 Cholesterol, Total 173 mg/dL (Normal) Range: 100-199 37-Nja-781514:09 CBC W/Diff, Auto - EPLAB Comments: At [facility] Medical Oncologypatients receive CBC w/auto Differential ONLY. Physicianwill place an order for a manual differential or Pathologistreview at his discretion. [facility] OUTPATIENT [facility]. [address] [place] [address] [place] [address] RAFTSMAN: KURTIS DAWKINS DO PH:[phone] Hospitals Conneaut Medical Center [address] [place], [address] Absolute Lymph 1.19 {X10_3/uL} (Normal) Range: 0.83-4.51 [...] 4.2-5.4 WBC 9.0 K/mm3 (Normal) Range: 4.4-11.0 87-Qvq-910626:10 CBC W/Diff, Automated Comments: [facility] [address] [place], [address] Absolute Lymph 0.80 {X10_3/ul} (Abnormal) Range: 0.83-4.51 [...] 4.2-5.4 WBC 6.2 K/mm3 (Normal) Range: 4.4-11.0 52-Oyx-784137:25 CBC W/Diff, Auto - EPLAB Comments: At [facility] Outpatient [facility] Medical Oncologypatients receive CBC w/auto Differential ONLY. Physicianwill place an order for a manual differential or Pathologistreview at his discretion. [facility]. [address] [place] [address] [address] RAFTSMAN: KURTIS DAWKINS DO PH:[phone] Hospitals Conneaut Medical Center Ezdywzqpjd3649 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 [place], [place], [id number] MUCUS, URINE 0 SEEN {/hpf} (Normal) BACTERIA [...] CLARITY Sl. Cloudy (Normal) COLOR Yellow (Normal) 0-Bzb-750992:00 Basic Metabolic Profile (BMP) Comments: [facility] Tdbmdizgzs2637 [address] [place], [place], [address] GAP 6 (Normal) Range: 5-15 CO2 38.0 [...] 7-18 GLU 101 mg/dL (Normal) Range: 70-110 9-Cri-324002:00 CBC W/Diff, Automated Comments: [facility] Wlmsmtcpql6601 [address] [place], [place], [address] Absolute Lymph 0.60 {X10_3/ul} (Abnormal) Range: 0.83-4.51 [...] 4.4-11.0 :30 Miscellaneous Lab Procedure Comments: Comments: [id number], [id number](s) Ordered: Flow [id number] Test(s) Ordered by Physician: Cytogenetics [address] Pmopmgqmwc3427 [place], [address] [facility] LAB TEST FLOW-SEE PTH (Normal) :30 Miscellaneous Lab Procedure 2 Comments: Comments: [id number], [id number](s) Ordered: Flow [id number] Test(s) Ordered by Physician: Cytogenetics [address] Nxdaoyujzk8972 Mitzimarilyn [place]ay[place]ing [place], [address] [facility] LAB TEST 2 CYTO-SEE PTH (Normal) :03 CBC W/Diff, Auto - EPLAB Comments: At [facility] Outpatient [facility] [place] Medical Oncologypatients receive CBC w/auto Differential ONLY. Physicianwill place an order for a manual differential or Pathologistreview at his discretion. [facility] OUTPATIENT [facility]. [address] [place] [address] RAFTSMAN: KURTIS DAWKINS DO PH:[phone] Hospitals Conneaut Medical Center [address] [place] [place], [address] Absolute Lymph 0.74 {X10_3/uL} Range: 0.83-4.51 (Abnormal) [...] (Abnormal) WBC 10.8 K/mm3 (Normal) Range: 4.4-11.0 26-Nov-20150:0 BONE MARROW BIOPSY See Note (Normal) Comments: [facility] Dfvjnjyexu0687 [place], [address] 0 Comments: Patient: KILEY DREW O : 1935 (80/F) Acct Num: [id number] Phys: Devon Jenkins Unit Num: [id number] Loc: [facility] Specimen: [id number] Received: 11/26/15949 Spec Type: BMB TISSUES TISSUES: ADDENDUM Addendum Number 1 CYTOGENETICS REPORT FROM [facility] CYTOGENETIC RESULT: 46,XX[20] INTERPRETATION: Normal female karyotype was observed in twenty m etaphases analyzed. Please see complete report in e-chart or EMR for further details Addendum Signed Kurtis [facility] 12/05/15 <signa maria victoria on [...] reference lab forflow cytometry and cytogenetics. / SJ:rg 11/26/15 TC:0 CPT: 02639, 52404, 47381 x2, 52844 x3, 19946 BONE MARROW STUDY Slides are reviewed. CBC [...] send outs (flow and cytogenetics) Signed Kurtis [facility] 11/29/15 <signature on file> :0 IMMUNOHISTOCHEMISTRY See Note (Normal) Comments: [facility] Cngsrisbyt0543 M[address] [facility] [place], [address] 0 Comments: Patient: KILEY DREW : 1935 (80/F) Acct Num: [id number] Phys: GregoryDevon Unit Num: [id number] Loc: [facility] Specimen: [id number] Received: 11/27/15 - 1310 Spec Type: IMMUNO TISSUES TISSUES: SPECIMEN INFORMATION: Tissue Source: Bone marrow biopsy and aspiration Clinical Info: Anemia Specimen Number: [id number] CPT code: 54437, 92288 x14 METHOD OLOGY: Deparaffinized sections of prefer/formalin-fixed [...] positive CD79a (11E3) positive CD138 (B-A38) negative [place] (polyclonal) negative Lambda (polyclonal) negative CD10 (56C6) negative CD23 (1B12) negative BCL-2 (bcl-2/100/D5) negative BCL-6 (NN041I/A8) negative Cyclin D1/BCL-1 (SP4) negative Ki-67 (30-9) negative These tests were developed and their performance characteristics determined by [facility]. They may not have been cleare d or approved by the U.S. Food and Drug Administration. The FDA has determined that such clearance or approval is not necessary. INTERPRETATION: A. Bone marrow core: Polytypic (benign) lymphoid aggregate. Case has been reviewed in consultation with Dr. Smith who concurs with the abovediagnosis. IDC:[email or web address] AM:manas 11/28/15 PHYSICIAN AND INSTITUTION [address] [address] Signed Kurtis [facility] 11/28/15 <signature on file> 36-Gts-440036:37 Basic Metabolic Profile (BMP) Comments: [facility] Um[address] [place] [address], [address] GAP 6 (Normal) Range: 5-15 CO2 36.0 [...] 7-18 GLU 90 mg/dL (Normal) Range: 70-110 43-Kno-586056:36 CBC W/Diff, Auto - EPLAB Comments: At [facility] Outpatient [facility] Medical Oncologypatients receive CBC w/auto Differential ONLY. Physicianwill place an order for a manual differential or Pathologistreview at his discretion. [facility] OUTPATIENT [facility]. [address] [place] [place] [address] RAFTSMAN: KURTIS DAWKINS DO PH:[phone] Hospitals Conneaut Medical Center Rbapygrgfk70[address] [place], [address] Absolute Lymph 0.96 {X10_3/uL} (Normal) Range: 0.83-4.51 [...] 4.2-5.4 WBC 11.0 K/mm3 (Normal) Range: 4.4-11.0 85-Qux-90283:25 Basic Metabolic Profile (BMP) Comments: LINE DRAWUniversity Hospitals Conneaut Medical Center Zinpsojmzw3560 [place], [address] GAP 2 (Abnormal) Range: 5-15 CO2 38.0 [...] 7-18 GLU 102 mg/dL (Normal) Range: 70-110 43-Chw-079228:15 Comments: Non-[facility] - refer to report for specific site [id number] TRANSFUSED PRODUCT: T AND S with Crossmatch, Red Cells COUNT: 2 (Normal) 36-Xqs-672485:15 Type AND Screen Comments: CMV NEG?* NGive When? When ReadyIrradiated? YLeukodepleted? YReason for Type AND Screen/Red Cells: ROUTINEUniversity Hospitals Conneaut Medical Center Tfhdjuynxk6040 [address] Gr[address] [place], [place], [address] Antibody Screen NEGATIVE (Normal) BLOOD TYPE GEL A POSITIVE (Normal) 57-Ere-754623:15 Type AND Screen Comments: CMV NEG?* NGive When? When ReadyIrradiated? YLeukodepleted? YReason for Type AND Screen/Red Cells: ROUTINEWAvita Health System Gxzzfhhpdm9479 [address] [place], [place], [address] ; Managed by Devon Jenkins Antibody Screen NEGATIVE (Normal) BLOOD TYPE GEL A POSITIVE (Normal) 05-Bvf-632617:03 CBC W/Diff, Auto - EPLAB Comments: At [facility] Outpatient [facility] Medical Oncologypatients receive CBC w/auto Differential ONLY. Physicianwill place an order for a manual differential or Pathologistreview at his discretion. [facility] OUTPATIENT [facility]. [address] [place] [place] [address] RAFTSMAN: KURTIS DAWKINS DO PH:[phone] Hospitals Conneaut Medical Center Yzwrzftlbl7814 [address] Gr[address] [place], [place], [address] Absolute Lymph 0.65 {X10_3/uL} (Abnormal) Range: 0.83-4.51 [...] 4.2-5.4 WBC 9.6 K/mm3 (Normal) Range: 4.4-11.0 82-Qhr-325040:05 Comprehensive Metabolic Profil Comments: Serial Specimen #1, #2 or #3? [address] [place] [address] [address]wlzwt[address]199 [address] [place], [place], [address] GAP 5 (Normal) Range: 5-15 CO2 40.0 [...] Comments: Serial Specimen #1, #2 or #3? 1[facility] Oyzwngdejl0839 [address] [place], [place], [address] Range: 84-246 15-Pkf-172677:05 Uric Acid Comments: Serial Specimen #1, #2 or #3? 1WAvita Health System Swkqnwvtrv6071 [address] [place], [place], [address] URIC 4.1 mg/dL (Normal) Range: 2.6-6.0 Comments: The drugs N-Acetylcysteine and Metamizole may falsely deressthis assay. 17-Owy-188024:04 CBC W/Diff, Auto - EPLAB Comments: At [facility] Outpatient [facility] [place] Medical Oncologypatients receive CBC w/auto Differential ONLY. Physicianwill place an order for a manual differential or Pathologistreview at his discretion. [facility] OUTPATIENT [facility]. [address] [place] [place] [address] RAFTSMAN: KURTIS DAWKINS DO PH:[phone] Hospitals Conneaut Medical Center Ousbvdsqfg7855 [address]itzi [place]tSaint [place], [place], [address] Absolute Lymph 0.78 {X10_3/uL} (Abnormal) Range: 0.83-4.51 [...] Range: 4.4-11.0 :31 CBC W/Diff, Automated Comments: [facility] Brebktqegw67[address] [place], [place], [address] OVALOCYTE 1+ (Normal) HYPOCHROMASIA 1+ (Normal) ANISO [...] K/mm3 (Normal) Range: 4.4-11.0 :35 RC Comments: Non-[facility] Laboratory - refer to report for specific site [id number] TRANSFUSED PRODUCT: T AND S with Crossmatch, Red Cells COUNT: 2 (Normal) :35 Type AND Screen Comments: CMV NEG?* NGive When? 291826Lzxednhplv? YLeukodepleted? YReason for Type AND Screen/Red Cells: ANEMIAWAvita Health System Aulvmccucd7405 [place], [address] Antibody Screen NEGATIVE (Normal) BLOOD TYPE GEL A POSITIVE (Normal) 44-Gjv-317420:41 Bilirubin, Direct Comments: Serial Specimen #1, #2 or #3? 1WAvita Health System [address]wpqougkh[address] [place], [address] D BILI 0.13 mg/dL (Normal) Range: 0.00-0.30 14-Ctl-707534:41 CBC W/Diff, Automated Comments: PERIPHERAL BLOOD FLOW CYTOMETRYWAvita Health System Etyojrcsuh6875 [place], [address] MICROCYTES 1+ (Normal) HYPOCHROMASIA 2+ (Normal) [...] 4.2-5.4 WBC 7.0 K/mm3 (Normal) Range: 4.4-11.0 :41 Comprehensive Metabolic Profil Comments: Serial Specimen #1, #2 or #3? 1[facility] Jptdavwhdf9836 [place], [address] GAP 3 (Abnormal) Range: 5-15 CO2 39.0 [...] 7-18 GLU 92 mg/dL (Normal) Range: 70-110 18-Glt-282142:41 Direct Antiglobulin Liam BRIAN Comments: [facility] Nzdhxuzotc1997 [place], [address] DIRECT LIAM= NEG w/POLYSPECIFIC (Normal) :41 Erythropoietin Comments: Is Patient Fasting? [facility] (refer to report for specific site)refer to report for address and phone number ERYTHROP [id number] 97.7 m[iU]/mL (Abnormal) Range: 2.6-18.5 :41 Ferritin Comments: Serial Specimen #1, #2 or #3? 1WAvita [facility] System Ddmlclwetu2115 [place], [address] FERRITIN 13 ng/mL (Normal) Range: 8-252 :41 Haptoglobin Comments: Is Patient Fasting? [facility] (refer to report for specific site)refer to report for address and phone number HAPTOGLOB 1628 209 mg/dL (Abnormal) Range: 34-200 Comments: Performed at: [facility] LabSharon Ville [id number] Director: Elías Ludwig PhD, Phone: [phone] :41 JEY + Protein Elect, Serum Comments: Is Patient Fasting? [facility] (refer to report for specific site)refer to report for address and phone number NOTE: Comment (Normal) Comments: Protein electrophoresis scan will follow via computer,mail, or communications tower technician delivery. JEY RESULT,S Comment (Normal) Comments: No monoclonality detected. A/G RATIO 1.2 (Normal) Range: 0.7-1.7 GLOBULIN, TOTAL 2.9 g/dL (Normal) Range: 2.2-3.9 M-SPIKE (Normal) Comments: Not Observed GAMMA GLOBULIN 0.9 g/dL (Normal) Range: 0.4-1.8 BETA GLOBULIN 1.0 g/dL (Normal) Range: 0.7-1.3 DVUAG-0-ZJGO 0.8 g/dL (Normal) Range: 0.4-1.0 RNTJR-8-DVVT 0.3 g/dL (Normal) Range: 0.0-0.4 ALBUMIN 3.3 g/dL (Normal) Range: 2.9-4.4 IMMUNOGL M 165 mg/dL (Normal) Range: 26-217 IMMUNO A 84 mg/dL (Normal) Range: 64-422 IMMUNO G 729 mg/dL (Normal) Range: 700-1600 PROTEIN,TOTAL 6.2 g/dL (Normal) Range: 6.0-8.5 :41 Iron+Iron Binding Capacity Comments: Serial Specimen #1, #2 or #3? [address] [place] [address] Exsknjpxco[address] [place], [address] IRON SATURATION 4.7 % (Abnormal) Range: 15.0-55.0 IRON 25 ug/dL (Abnormal) Range: 50-170 TIBC 531 ug/dL (Abnormal) Range: 250-450 :41 [place] Lambda Lt Chn Ser. Mon. Comments: Is [...] Comments: Serial Specimen #1, #2 or #3? [address] [place] [address] Agjxqplezf5792 [place], [address] Range: 84-246 42-Oxn-527778:41 Partial Thromboplast Time Comments: [facility] Clotofdlud0852 [place], [address] PTT 36.4 s (Abnormal) Range: 24.1-36.2 :41 Prothrombin Time w/INR Comments: [facility] Hxshscpbhu4883 [place], [address] INR 1.1 (Normal) PROTIME 13.4 s (Normal) Range: 11.7-14.9 :41 Retic Panel Comments: PERIPHERAL BLOOD FLOW CYTOMETRYWAvita Health System Avtunigmqz[address] [place], [address] IPF 1.3 % (Normal) Range: 1.0-7.9 Comments: [...] Comments: Serial Specimen #1, #2 or #3? 1[facility] Blsrjpnvdd6335 [place], [address] URIC 3.7 mg/dL (Normal) Range: 2.6-6.0 Comments: The drugs N-Acetylcysteine and Metamizole may falsely deressthis assay. :41 Vitamin B12 453 pg/mL (Normal) Comments: [facility] Fsteuopnyd6679 [address] [place], [address] Range: 211-911 :52 Fecal Occult Blood , Office (87[address]) Fecal Occult Blood , Office (Inhouse) positive (Normal) 07-Lbq-074706:17 CBC WITH MANUAL DIFF Comments: STANDING ORDER; PATIENT NOT FASTINGPERFORMED BY: LabCoMeadowview Psychiatric HospitalCidfra7537 [facility] [id number] Information: [id number] (46698) Hematology Comments: Note: (Normal) Comments: Verified by [...] RBC 3.84 {x10E6/uL} (Normal) Range: 3.77-5.28 Comments: Dontae.Polychromasia present WBC 7.4 {x10E3/uL} (Normal) Range: 3.4-10.8 :56 CBC W/Diff, Automated Comments: [facility] Royegoeqot4828 [address] [place], [place], [address] SMEAR COMMENT COMMENT (Normal) Comments: SLIDE SCANNED [...] 4.2-5.4 WBC 7.2 K/mm3 (Normal) Range: 4.4-11.0 02-Cfh-695589:38 CBC W/AUTO DIFF WBC Comments: PATIENT NOT FASTINGPERFORMED BY: LabCoMeadowview Psychiatric HospitalEhblin4992 [facility] [id number] Information: [id number] (01488) Hematology Comments: Note: (Normal) Comments: Verified by [...] present. WBC 7.5 {x10E3/uL} (Normal) Range: 3.4-10.8 :11 CBC W/Diff, Automated Comments: [facility] Tqlozdsvql5579 [address] [place], [place], [address] MICROCYTES 1+ (Normal) HYPOCHROMASIA 2+ (Normal) ANISO [...] 4.2-5.4 WBC 8.7 K/mm3 (Normal) Range: 4.4-11.0 :45 HH, Hemoglobin AND Comments: [facility] Vnirbdyssk6213 [place] [place], [address] Hematocrit HCT 31.8 % (Abnormal) Range: 37-47 HGB 9.4 g/dL (Abnormal) Range: 12.0-15.0 :53 RC Comments: Non-[facility] Laboratory - refer to report for specific site [id number] TRANSFUSED PRODUCT: T AND S with Crossmatch, Red Cells COUNT: 2 (Normal) 20-Gai-698465:53 Type AND Screen Comments: CMV NEG?* NGive When? 09/20/15 9AMIrradiated? NLeukodepleted? YReason for Type AND Screen/Red Cells: [facility] Aummcfctaq6964 [facility] [place], [address] Antibody Screen NEGATIVE (Normal) BLOOD TYPE GEL A POSITIVE (Normal) 17-Vfp-623108:53 Type AND Screen Comments: CMV NEG?* NGive When? 09/20/15 9AMIrradiated? NLeukodepleted? YReason for Type AND Screen/Red Cells: [facility] Rxeojpnqms1748 [place], [address] Antibody Screen NEGATIVE (Normal) BLOOD TYPE GEL A POSITIVE (Normal) 85-Yct-187112:51 CBC W/Diff, Automated Comments: [facility] Nwznyzwwkx1398 [address] [place], [address] MICROCYTES 1+ (Normal) HYPOCHROMASIA 2+ [...] 4.2-5.4 WBC 7.6 K/mm3 (Normal) Range: 4.4-11.0 73-Jbk-512305:30 CBC W/Diff, Automated Comments: [facility] Zsyopoqdnk2233 [address] [place], [place], [address] SMEAR COMMENT (Normal) Comments: 1+ ANISOCYTOSIS Absolute [...] 4.2-5.4 WBC 8.1 K/mm3 (Normal) Range: 4.4-11.0 75-Ujj-552246:00 CBC W/Diff, Automated Comments: [facility] Rhfdqcvjfq7870 [place], [address] MICROCYTES 2+ (Normal) HYPOCHROMASIA 3+ (Normal) ANISO [...] 4.2-5.4 WBC 8.6 K/mm3 (Normal) Range: 4.4-11.0 60-Squ-037980:10 CBC W/Diff, Automated Comments: [facility] Mwjssxonbt1379 [address] [place], [place], [address] SMEAR COMMENT COMMENT (Normal) Comments: SLIDE SCANNED [...] 4.2-5.4 WBC 8.2 K/mm3 (Normal) Range: 4.4-11.0 56-Fpa-594219:45 CBC W/Diff, Automated Comments: [facility] Ezvnpplaqi5778 [address] [place], [place], [address] OVALOCYTE RARE (Normal) HYPOCHROMASIA 1+ (Normal) ANISO [...] 4.2-5.4 WBC 9.1 K/mm3 (Normal) Range: 4.4-11.0 :30 CBC W/Diff, Automated Comments: [facility] Vjruuhkflj9601 [place], [address] SMEAR COMMENT SCANNED (Normal) Comments: 2+ ANISOCYTOSIS, [...] Range: 4.4-11.0 :44 CBC W/Diff, Automated Comments: [facility] Elfmotisuo4303 [address] [place], [place], [address] SMEAR COMMENT COMMENT (Normal) Comments: SLIDE SCANNED [...] 4.2-5.4 WBC 8.2 K/mm3 (Normal) Range: 4.4-11.0 0-Eaf-286973:20 HH, Hemoglobin AND Hematocrit Comments: [place] [address] [address] [place], [place], [address] HCT 30.8 % (Abnormal) Range: 37-47 HGB 8.8 g/dL (Abnormal) Range: 12.0-15.0 56-Zzq-007345:30 Prothrombin Time w/INR Comments: [address] [place], [place], [address] INR 1.0 (Normal) PROTIME 13.0 s (Normal) Range: 11.7-14.9 :48 Basic Metabolic Profile (BMP) Comments: [facility] Dcjzqifors2243 [address], [address] GAP 3 (Abnormal) Range: 5-15 CO2 41.0 [...] Range: 70-110 :48 BNP,B-Type NATRIURETIC PEPTIDE Comments: [facility] Fndtopwxtl37[address] [place], [address] B-TYPE CORBIN PEP 458.2 pg/mL (Abnormal) Range: 0-100 :48 CBC W/Diff, Automated Comments: [facility] F[address]efosfru[address] [place], [address] Absolute Lymph 0.66 {X10_3/ul} (Abnormal) Range: 0.83-4.51 [...] 4.2-5.4 WBC 7.9 K/mm3 (Normal) Range: 4.4-11.0 75-Hqz-564230:39 CBC W/Diff, Automated Comments: [facility] Hjyuocoibl9458 [place], [address] Absolute Lymph 0.93 {X10_3/ul} (Normal) Range: 0.83-4.51 [...] 4.2-5.4 WBC 9.9 K/mm3 (Normal) Range: 4.4-11.0 8-Csx-465184:00 Basic Metabolic Profile (BMP) Comments: Serial Specimen #1, #2 or #3? 1'TROP' Serial specimen #1, #2, #3, or #4: [address] [place] [address] Qhvuxxlatn4314 [place], [address] GAP 5 (Normal) Range: 5-15 CO2 39.0 [...] 126 mg/dLsuggests DIABETES MELLITUS per A.D.A. criteria. 0-Bya-711249:00 CBC W/Diff, Automated Comments: [facility] Osqdrmdrhr7908 [address] [place], [place], [address] SCHISTOCYTES 1+ (Normal) OVALOCYTE RARE (Normal) HYPOCHROMASIA [...] 4.2-5.4 WBC 9.3 K/mm3 (Normal) Range: 4.4-11.0 8-Yro-905423:00 CK-MB Quantitative and Index Comments: Serial Specimen #1, #2 or #3? 1'TROP' Serial specimen #1, #2, #3, or #4: [address] [place] [address] [address]zcmamwrjv1950 [address] [place], [place], [address] CKRI 2.1 % (Abnormal) Range: 0.0-1.4 Comments: RELATIVE INDEX >1.5% IS PRESUMPTIVELY POSITIVE CPKMB 2.1 ng/mL (Normal) Range: 0.0-5.0 Comments: CK-MB and RI Interpretation MB Relative Index Non-AMI <or= 5 NA Indeterminate > 5 <or= 4 AMI > 5 > 4 CPK TOTAL 100 U/L (Normal) Range: 26-192 1-Yti-011341:00 Troponin-I Comments: Serial Specimen #1, #2 or #3? 1'TROP' Serial specimen #1, #2, #3, or #4: [address] [place] [address] [address]ytpfbkx1705 [address] [place], [place], [address] TROPONIN-I < 0.02 ng/mL (Normal) Comments: TROPONIN-I EXPECTED VALUES <0.05 NEGATIVE 0.06 - 0.59 AT RISK OF AL > OR = 0.60 SUGGEST AL 6-Lgb-638097:50 Methymalonic Acid, Serum Comments: PATIENT NOT FASTINGPERFORMED BY: [employer] Institute[employer] [place] [id number] BY: [employer] [id number] (339[address]) Methylmalonic Acid, Serum 278 nmol/L (Normal) Range: 0-378 8-Cbf-945487:50 VITAMIN B-12 (CYANOCOBALAMIN) Comments: PATIENT NOT FASTINGPERFORMED BY: ebindle6370 Enamor[address] RoadDublin [place] [id number] BY: [employer] [id number] (17661) Vitamin B12 692 pg/mL (Normal) Range: 211-946 7-Vzx-979212:50 IRON BINDING CAPACITY Comments: PATIENT NOT FASTINGPERFORMED BY: [employer] Yqzlki3286 [address]am[address] RoadDublin [place] [id number] BY: Lab[address] CourtBurlington [place] [id number] (TIBC) (58290) Iron Saturation 22 % (Normal) Range: 15-55 Iron, Serum 92 ug/dL (Normal) Range: 35-155 UIBC 320 ug/dL (Normal) Range: 150-375 Iron Bind.Cap.(TIBC) 412 ug/dL (Normal) Range: 250-450 3-Kvg-780462:50 FERRITIN (88389) Comments: PATIENT NOT FASTINGPERFORMED BY: HD Fantasy Footballlin6370 [facility] [id number] BY: [employer] [id number] Ferritin, Serum 72 ng/mL (Normal) Range: 15-150 3-Gwh-024198:50 CBC, PLATELETS & AUT DIFF Comments: PATIENT NOT FASTINGPERFORMED BY: HD Fantasy Footballlin6370 [facility] [id number] BY: [employer] [id number] Information: [id number] (38150) Immature Grans (Abs) 0.0 {x10E3/uL} (Normal) Range: [...] 3.77-5.28 WBC 9.0 {x10E3/uL} (Normal) Range: 3.4-10.8 70-Qeb-375137:06 Iron Binding Capacity Comments: PATIENT WAS FASTINGPERFORMED BY: LyceraCrownpoint Healthcare FacilityKwtuxn4601 [facility] [id number] BY: [address] [id number] Information: [id number] (TIBC) (37464) Iron Saturation 4 % (Abnormal) Range: 15-55 Iron, Serum 17 ug/dL (Abnormal) Range: 35-155 UIBC 419 ug/dL (Abnormal) Range: 150-375 Iron Bind.Cap.(TIBC) 436 ug/dL (Normal) Range: 250-450 68-Ksw-757663:06 RETICULOCYTE COUNT (75111) Comments: PATIENT WAS FASTINGPERFORMED BY: LyceraMeadowview Psychiatric HospitalIwbofc2338 [facility] [id number] BY: [address] [id number] Reticulocyte Count 1.2 % (Normal) Range: 0.6-2.6 26-Yaq-045635:06 LDH (LD) (LACTATE Comments: PATIENT WAS FASTINGPERFORMED BY: [employer] Qcseaw3730 [facility] [id number] BY: [address] [id number] DEHYDROGENASE) (25107) LDH 284 [iU]/L (Abnormal) Range: 119-226 67-Vjf-964142:06 Vitamin B-12 Comments: PATIENT WAS FASTINGPERFORMED BY: [facility] HospitalIdehom[facility]15 [facility] [id number] BY: [address] [id number] (cyanocobalamin) (16592) Vitamin B12 452 pg/mL (Normal) Range: 211-946 25-Ibg-711376:06 Ferritin (24475) Comments: PATIENT WAS FASTINGPERFORMED BY: [facility] [place] [id number] [place] [facility] [place] [id number] BY: [address] [id number] Ferritin, Serum 15 ng/mL (Normal) Range: 15-150 93-Rrt-466662:06 Folic Acid Serum (77695) Comments: PATIENT WAS FASTINGPERFORMED BY: [facility] [id number] [facility] [id number] BY: [address] [id number] Folate (Folic Acid), Serum 16.7 ng/mL (Normal) Comments: A serum folate concentration of less than 3.1 ng/mL isconsidered to represent clinical deficiency. 04-Wny-667286:06 Methymalonic Acid, Serum Comments: PATIENT WAS FASTINGPERFORMED BY: [place] [id number] [facility] [id number] BY: [address] [id number] (84579) Methylmalonic Acid, Serum 321 nmol/L (Normal) Range: 0-378 83-Vtm-587072:22 TSH (06285) Comments: PATIENT NOT FASTINGPERFORMED BY: [facility] Euzqqq9035 [facility] [id number] TSH 1.540 {uIU/mL} (Normal) Range: 0.450-4.500 51-Jrt-981952:22 METABOLIC PANEL, COMPREHENSIVE Comments: PATIENT NOT FASTINGPERFORMED BY: [facility] Jloeto8573 [facility] [place] [id number] ([id number]) ALT (SGPT) 13 [iU]/L (Normal) Range: 0-32 [...] Glucose, Serum 99 mg/dL (Normal) Range: 65-99 38-Lhg-072597:22 CBC W/AUTO DIFF WBC Comments: PATIENT NOT FASTINGPERFORMED BY: [facility]CoM[facility]view Psychiatric HospitalZtlcbc2021 [facility] [id number] Information: [id number] DL (56029) Immature Grans (Abs) 0.0 {x10E3/uL} (Normal) Range: [...] 3.77-5.28 WBC 8.4 {x10E3/uL} (Normal) Range: 3.4-10.8 10-Qon-058136:22 Lipid Profile Comments: Test performed at:[facility] [address] [place] [address] 18467 VLDL 17 mg/dL (Normal) Range: 5-40 LDL [...] 200-240 mg/dL Borderline >240 mg/dL High Risk 37-Qcc-355593:22 Liver Profile Comments: Test performed at:[facility] Elgl[address]fvo6841 [place], [place] [address] D BILI 0.09 mg/dL (Normal) Range: 0.00-0.30 T BILI 0.30 mg/dL (Normal) Range: 0.20-1.00 ALT 30 U/L (Normal) Range: 12-78 ALK P 96 U/L (Normal) Range: 50-136 AST 29 U/L (Normal) Range: 15-37 GLOB 3.3 g/dL (Normal) Range: 2.3-3.5 ALB 3.5 g/dL (Normal) Range: 3.4-5.0 T PROT 6.8 g/dL (Normal) Range: 6.4-8.2 7-Whm-049167:58 Miscellaneous Lab Procedure Comments: RUN LOWEST TESTComments: [id number] URINE TOXICOLOGYTest(s) Ordered: [id number] URINE TOXICOLOGYTest performed at:[facility] Bbg[address]jgyf[address] [place] [address] [facility] Comments: [id number] 6+OXYCODONE-BUND (ng/mL)DRUG RESULT SCREEN CUTOFF____ Amphetamines,Urine Negat LAB (Normal) terri ng/mL 1000Amphetamine test includes Amphetamine and Methamphetamine.Barbiturates Negative ng/mL 200Benzodiazepines Negative ng/mL 200Cannabinoid TEST Negative ng/mL 20Cocaine (Metab) Negative ng/mL 300Opiates Negative ng/mL 300 Opiates test includes Codeine, Morphine, Hydromorphone, [place] codone.Oxycodone/Oxymorphone,Urine Positive ng/mL 300 Test includes Oxydodone and Oxymorphone.Oxycodone Positive Oxycodone (GC/MS) 942 ng/mL 300Oxymorphone Positive Oxymorphone (GC/MS) 1150 ng/mL 300 [facility]ING [facility]FOR[facility] AT [facility]. ORIGINAL REPORT ON FILE IN LAB C ONTAINS ADDITIONAL TEST SITE INFORMATION. 5-Rvk-402093:58 Urine Drug Screen (VISTA) Comments: Comments: [id number] URINE TOXICOLOGYList of Drugs Taken or Suspected? UNKNOWNTest performed at:[facility] [address] [place] [address] THC NEGATIVE (Normal) PCP NEGATIVE [...] TESTING MUST BE ORDERED SEPARATELY. USE TESTMNEMONIC: [facility] 44-Bki-595307:19 Anti-dsDNA Ab Comments: Test performed at:[facility] Valvxflxgt0716 [facility] [place] [address] dsDNA AB 4 {IU/mL} (Normal) Range: 0-9 Comments: Negative <5 Equivocal 5 - 9 Positive >9Performed at: - [facility] [id number] D irector: Johnathan Junior PhD, Phone: [phone] 35-Pos-061872:19 CBC W/Diff, Automated Comments: Test performed at:[facility] Rwrpuribtx4899 [facility] [place] [address] Absolute Lymph 0.78 {X10_3/ul} (Abnormal) Range: 0.83-4.51 [...] 4.2-5.4 WBC 9.5 K/mm3 (Normal) Range: 4.4-11.0 41-Mpr-408651:19 Complement C3 Comments: Test performed at:[facility] Wlwlskpest4303 [place] [address] COMP C3 135 (Normal) Range: 90-180 Comments: Result Units: mg/dL AdultPerformed at: - [facility] [address] [id number] Director: Johnathan Junior PhD, Phone: [phone] 84-Psy-870353:19 Complement C4 Comments: Test performed at:[facility] Mzruutzidn0666 [place] [address] COMP C4 27 (Normal) Range: 9-36 Comments: Result Units: mg/dL Adult 77-Dyf-337063:19 Comprehensive Metabolic Profil Comments: Test performed at:[facility] [address] [place] [address] GAP 8 (Normal) Range: 5-15 CO2 31.0 [...] 7-18 GLU 92 mg/dL (Normal) Range: 70-110 81-Wku-212723:19 Protein+Creatinine Ratio,Urine Comments: Test performed at:[facility] [address] [place] [address] PROT:CRE RATIO 334 {mg/g_CRE} (Abnormal) Range: 0-200 PROTEIN,UR.RAN. 32.8 mg/dL (Abnormal) UR CREAT 98.0 mg/dL (Normal) 35-Wul-351683:19 Urinalysis, Complete Comments: How was Urine Obtained? CLEAN CATCHTest performed at:[facility] [address] [place] [address] HYALINE CAST 5-10 SEEN {/lpf} (Normal) Range: [...] CLARITY Sl. Cloudy (Normal) COLOR Yellow (Normal) 44-Mij-296374:41 CBC With Differential/Platelet Comments: PATIENT NOT FASTINGPERFORMED BY: [facility] Kilvsg6413 [facility] [id number] Information: [id number] Immature Grans (Abs) 0.0 {x10E3/uL} (Normal) Range: [...] Basic Metabolic Profile (BMP) Comments: Test performed at:[facility] [address] [place] [address] GAP 3 (Abnormal) Range: 5-15 CO2 33.0 mmol/L (Abnormal) Range: 21.0-32.0 CL 101 mmol/L (Normal) Range: 98-107 K 3.9 mmol/L (Normal) Range: 3.5-5.1 NA 137 mmol/L (Normal) Range: 136-145 CA 8.3 mg/dL (Abnormal) Range: 8.5-10.1 BUN/CRE 26.3 {RATIO} (Abnormal) Range: 10-20 CREAT,SERUM 0.8 mg/dL (Normal) Range: 0.6-1.0 BUN 21 mg/dL (Abnormal) Range: 7-18 GLU 85 mg/dL (Normal) Range: 70-110 :43 CBC W/Diff, Automated Comments: Test performed at:[facility] [address] [place] [address] Absolute Lymph 0.85 {X10_3/ul} (Normal) [...] #1, #2, #3, or #4: 1Test performed at:[facility] Gqcquurvlx5526 [facility]. [place], [place] [id number] GAP 5 (Normal) Range: 5-15 CO2 38.0 [...] :40 CBC W/Diff, Automated Comments: Test performed at:[facility] Hpwcaceflt6415 [facility] [place] [address] Absolute Lymph 1.10 {X10_3/ul} (Normal) Range: 0.83-4.51 [...] #1, #2, #3, or #4: 1Test performed at:[facility] [address] [place], [place] [id number] CPKMB 1.4 ng/mL (Normal) Range: 0.0-5.0 Comments: CK-MB and RI Interpretation MB Relative Index Non-AMI <or= 5 NA Indeterminate > 5 <or= 4 AMI > 5 > 4 CPK TOTAL 133 U/L (Normal) Range: 26-192 :40 Troponin-I Comments: Serial Specimen #1, #2 or #3? 1'TROP' Serial specimen #1, #2, #3, or #4: 1Test performed at:[address] [place], [place] [id number] TROPONIN-I < 0.02 ng/mL (Normal) Comments: TROPONIN-I EXPECTED VALUES <0.05 NEGATIVE 0.06 - 0.59 AT RISK OF AL > OR = 0.60 SUGGEST AL :30 Basic Metabolic Profile (BMP) Comments: Test performed at:[address] [place] [address] GAP 6 (Normal) Range: 5-15 [...] :30 CBC W/Diff, Automated Comments: Test performed at:[facility] Ltd[address]up[address] [place] [address] Absolute Lymph 0.79 {X10_3/ul} (Abnormal) [...] 4.2-5.4 WBC 10.2 K/mm3 (Normal) Range: 4.4-11.0 38-Pze-725808:16 Lipid Profile Comments: Test performed at:[facility] Vagvgdmcwx6457 [place] [address] VLDL 16 mg/dL (Normal) Range: [...] 200-240 mg/dL Borderline >240 mg/dL High Risk 26-Ckw-402873:16 Liver Profile Comments: Test performed at:[facility] Zhlkhwuaer9725 [place], [place] [address] D BILI 0.09 mg/dL (Normal) Range: 0.00-0.30 T BILI 0.30 mg/dL (Normal) Range: 0.00-4.00 ALT 29 U/L (Normal) Range: 12-78 ALK P 116 U/L (Normal) Range: 50-136 AST 29 U/L (Normal) Range: 15-37 GLOB 3.6 g/dL (Normal) Range: 2.7-4.2 ALB 3.3 g/dL (Abnormal) Range: 3.4-5.0 T PROT 6.9 g/dL (Normal) Range: 6.4-8.2 14-Acr-986932:50 IRON BINDING CAPACITY (TIBC) Comments: PATIENT NOT FASTINGPERFORMED BY: LyceraMeadowview Psychiatric HospitalHkbspj9038 [facility] [id number] ([id number]) Iron Saturation 13 % (Abnormal) Range: 15-55 Iron, Serum 51 ug/dL (Normal) Range: 35-155 UIBC 328 ug/dL (Normal) Range: 150-375 Iron Bind.Cap.(TIBC) 379 ug/dL (Normal) Range: 250-450 :50 FERRITIN (09540) Comments: PATIENT NOT FASTINGPERFORMED BY: [employer] Zkdnfb2356 [facility] [id number] Ferritin, Serum 33 ng/mL (Normal) Range: 15-150 :50 CBC W/AUTO DIFF WBC Comments: PATIENT NOT FASTINGPERFORMED BY: [employer] Power SystemsMeadowview Psychiatric HospitalEwcvtc4362 [facility] [id number] Information: [id number] (82919) Immature Grans (Abs) 0.0 {x10E3/uL} (Normal) Range: [...] 3.77-5.28 WBC 11.0 {x10E3/uL} (Abnormal) Range: 3.4-10.8 94-Hwt-869932:59 FECAL OCCULT- Tubes sent home (52006) FECAL OCCULT HGB ASSAY, QUAL, 1-3 SIMULTANEOU negative (Normal) 98-Pha-858572:10 VITAMIN B-12 (CYANOCOBALAMIN) Comments: PATIENT NOT FASTINGPERFORMED BY: [employer] Prlmng3965 [facility] [id number] (72113) Vitamin B12 528 pg/mL (Normal) Range: 211-946 20-Jtp-394467:10 RETICULOCYTE COUNT [facility] Comments: PATIENT NOT FASTINGPERFORMED BY: [employer] Pbhfwi1477 [facility] [id number] (77029) Reticulocyte Count 2.9 % (Abnormal) Range: 0.6-2.6 24-Kod-864563:10 LDH (LD) (LACTATE DEHYDROGENASE) Comments: PATIENT NOT FASTINGPERFORMED BY: [employer] Nismib9444 [facility] [id number] (74187) LDH 308 [iU]/L (Abnormal) Range: 119-226 23-Sun-387752:10 IRON BINDING CAPACITY (TIBC) Comments: PATIENT NOT FASTINGPERFORMED BY: [employer] Awahjx7447 [facility] [id number] (82501) Iron Saturation 26 % (Normal) Range: 15-55 Iron, Serum 104 ug/dL (Normal) Range: 35-155 UIBC 298 ug/dL (Normal) Range: 150-375 Iron Bind.Cap.(TIBC) 402 ug/dL (Normal) Range: 250-450 22-Axu-554251:10 FERRITIN (69909) Comments: PATIENT NOT FASTINGPERFORMED BY: [facility] Pxmsxg4735 [facility] [id number] Ferritin, Serum 47 ng/mL (Normal) Range: 15-150 79-Awd-901027:10 CBC, PLATELETS & AUT DIFF Comments: PATIENT NOT FASTINGPERFORMED BY: [facility] Awrzgl3729 [facility] [id number] Information: [id number] (26098) Immature Grans (Abs) 0.0 {x10E3/uL} (Normal) Range: [...] 3.77-5.28 WBC 7.2 {x10E3/uL} (Normal) Range: 3.4-10.8 73-Mjp-707488:06 CBC-Complete Blood Cnt No Diff Comments: Test performed at:[facility] [address] [place] [address] MPV 10.6 fL (Normal) Range: 6.2-12.0 PLT [...] 4.2-5.4 WBC 8.2 K/mm3 (Normal) Range: 4.4-11.0 37-Bqv-965188:25 Basic Metabolic Profile (BMP) Comments: Serial Specimen #1, #2 or #3? 1'TROP' Serial specimen #1, #2, #3, or #4: 1Test performed at:[facility] Fybrzdoviu8753 [facility] [place] [address] GAP 3 (Abnormal) Range: 5-15 [...] 126 mg/dLsuggests DIABETES MELLITUS per A.D.A. criteria. 82-Eut-644138:25 CBC W/Diff, Automated Comments: Test performed at:[facility] Yeval[address]nebo[address] [place] [address] Absolute Lymph 1.07 {X10_3/ul} (Normal) Range: 0.83-4.51 [...] 4.2-5.4 WBC 7.0 K/mm3 (Normal) Range: 4.4-11.0 :25 CK-MB Quantitative and Index Comments: Serial Specimen #1, #2 or #3? 1'TROP' Serial specimen #1, #2, #3, or #4: 1Test performed at:[facility] Le[address] [place], [place] [address] CPKMB 1.8 ng/mL (Normal) Range: 0.0-5.0 Comments: CK-MB and RI Interpretation MB Relative Index Non-AMI <or= 5 NA Indeterminate > 5 <or= 4 AMI > 5 > 4 CPK TOTAL 165 U/L (Normal) Range: 26-192 04-Tkm-043043:25 Troponin-I Comments: Serial Specimen #1, #2 or #3? 1'TROP' Serial specimen #1, #2, #3, or #4: 1Test performed at:[facility] Ozxxenbaxq7335 [facility] [place] [address] TROPONIN-I < 0.02 ng/mL (Normal) Comments: TROPONIN-I EXPECTED VALUES <0.05 NEGATIVE 0.06 - 0.59 AT RISK OF AL > OR = 0.60 SUGGEST AL 63-Gcl-775474:04 BMP GAP 2 (Abnormal) Range: 5-15 CO2 35.0 mmol/L (Abnormal) Range: 21.0-32.0 CL 99 mmol/L (Normal) Range: 98-107 K 4.0 mmol/L (Normal) Range: 3.5-5.1 NA 136 mmol/L (Normal) Range: 136-145 CA 8.6 mg/dL (Normal) Range: 8.5-10.1 BC 26.7 {RATIO} (Abnormal) Range: 10-20 CREAT 1.2 mg/dL (Abnormal) Range: 0.6-1.0 BUN 32 mg/dL (Abnormal) Range: 7-18 GLU 87 mg/dL (Normal) Range: 70-110 0-Nup-973567:00 C3 124 (Normal) Range: 90-180 Comments: Result Units: mg/dL AdultPerformed at: - [facility] [address] [id number] Director: Johnathan Junior PhD, Phone: [phone] 7-Rid-161855:00 C4 26 (Normal) Range: 9-36 Comments: Result Units: mg/dL Adult 5-Bbi-417239:00 CBCD ALC 1.02 {X10_3/ul} (Normal) Range: 0.83-4.51 [...] 4.2-5.4 WBC 7.6 K/mm3 (Normal) Range: 4.4-11.0 7-Nle-709124:00 CMP GAP 2 (Abnormal) Range: 5-15 CO2 [...] 7-18 GLU 106 mg/dL (Normal) Range: 70-110 1-Lzh-276535:00 DNAAB-LABCORP 5 {IU/mL} (Normal) Range: 0-9 Comments: Negative <5Equivocal 5 - 9Positive >9Performed at: - [facility] [address] [id number] Director: Johnathan Junior PhD, Phone: [phone] 7-Bao-601540:00 PROCRER tPROCRER 392 {mg/g_CRE} (Abnormal) Range: 0-200 PROUR 10.0 mg/dL (Normal) CREU 25.5 mg/dL (Normal) 0-Yyv-915023:00 UAC Comments: How was Urine Obtained? CLEAN CATCH [...] (Normal) UCLAR Clear (Normal) UCOL Straw (Normal) 7-Xxj-234861:54 CBC, PLATELETS & MANUAL DIFF (82725) Comments: recheck 03-08-1421-Feb-201491-Awe-729903:11 B12 817 pg/mL (Normal) Range: 211-911 :11 [...] or Folic Acid Supplements? N Range: 50-170 66-Mir-726407:11 BRUNO 23 ng/mL (Normal) Comments: Serial Specimen [...] Comments: Please note reference interval changePerformed at: [address] [id number] Director: Ciaran Valles MD, Phone: [phone] RETIC retIPF 1.5 % (Normal) Range: [...] or Folic Acid Supplements? N Range: 250-450 :11 TS Comments: CMV NEG?* NGive When? 02/22@0800Irradiated? NLeukodepleted? YReason for Type & Screen/Red Cells: ANEMIA SC3 NEGATIVE (Normal) SC2 NEGATIVE (Normal) SC1 NEGATIVE (Normal) ABS NEGATIVE (Normal) BT A POSITIVE (Normal) 24-Xex-599170:25 FECAL OCCULT- Tubes sent home (56597) FECAL OCCULT HGB ASSAY, QUAL, negative (Normal) 1-3 [facility] :08 HCT 29.9 % (Abnormal) [...] 7-18 GLU 77 mg/dL (Normal) Range: 70-110 1-Ejz-516996:11 BMP GAP 3 (Abnormal) Range: 5-15 CO2 33.0 mmol/L (Abnormal) Range: 21.0-32.0 CL 101 mmol/L (Normal) Range: 98-107 K 4.4 mmol/L (Normal) Range: 3.5-5.1 NA 137 mmol/L (Normal) Range: 136-145 CA 9.0 mg/dL (Normal) Range: 8.5-10.1 BC 22.7 {RATIO} (Abnormal) Range: 10-20 CREAT 1.1 mg/dL (Abnormal) Range: 0.6-1.0 BUN 25 mg/dL (Abnormal) Range: 7-18 GLU 88 mg/dL (Normal) Range: 70-110 9-Jqr-392440:11 BTNP 235.3 pg/mL (Abnormal) Range: 0-100 9-Eqa-141335:11 CBCD ALC 1.36 {X10_3/ul} (Normal) Range: 0.83-4.51 [...] :54 MG 1.6 mg/dL (Abnormal) Range: 1.8-2.4 86-Rbx-316168:54 T4 8.9 ug/dL (Normal) Range: 4.8-13.9 71-Yxk-503001:54 TSH 2.73 {uIU/mL} (Normal) Range: 0.358-3.74 :35 [...] CHOL 140 mg/dL (Normal) Comments: <200 mg/dL Nlmwquitk131-663 mg/dL Borderline>240 mg/dL High Risk TRIG 61 [...] 3.4-5.0 TPROT 6.8 g/dL (Normal) Range: 6.4-8.2 4-Ktp-460735:19 Metabolic Panel, Basic Comments: PATIENT NOT FASTINGPERFORMED BY: LabCoMeadowview Psychiatric HospitalMxdcst3357 [facility] [id number] Information: [id number] (98520) Calcium, Serum 9.1 mg/dL (Normal) Range: 8.6-10.2 [...] Glucose, Serum 75 mg/dL (Normal) Range: 65-99 67-Cdu-873629:39 CBC With Differential/Platelet Comments: PERFORMED BY: LabCoMeadowview Psychiatric HospitalAkrrlg4244 [facility] [id number] Information: 08/09@7AM 08/10@7AM Immature Grans (Abs) 0.0 [...] 3.77-5.28 WBC 8.9 {x10E3/uL} (Normal) Range: 4.0-10.5 :39 Comp. Metabolic Panel (14) Comments: PERFORMED BY: [employer]70 [facility] [id number] ALT (SGPT) 27 [iU]/L (Normal) Range: 0-32 [...] 65-99 :39 Creatinine Clearance Comments: PERFORMED BY: [employer]70 [facility] [id number] Creatinine Clearance 95 mL/min (Normal) Range: 88-128 Comments: The above range is based on 1.73 square meter average body surfacearea. Creatinine, Ur 24hr 1035.0 {mg/24_hr} Range: 800.0-1800.0 (Normal) Creatinine, Urine 57.5 mg/dL (Normal) Range: 15.0-278.0 Magnesium, Serum 1.9 mg/dL (Normal) Comments: PERFORMED BY: [employer] [facility] [id number] :39 Range: 1.6-2.6 :39 Microalbumin, 24 hr Urine Comments: PERFORMED BY: [employer] [facility] [id number] Microalbumin, Urine 83.6 ug/mL (Abnormal) Range: 0.0-17.0 Microalbumin,mg/day 150.5 {mg/day} (Abnormal) Phosphorus, Serum 4.0 mg/dL (Normal) Comments: PERFORMED BY: [employer] Pajgtc0836 [facility] [id number] 3:39 Range: 2.5-4.5 :39 Protein Electro, Random Urine Comments: PERFORMED BY: [employer] Privatelin6370 [facility] [id number] Please note: SPRCS (Normal) Comments: Protein electrophoresis scan will follow via computer, mail, orcourier delivery. Gamma Globulin, U 7.4 % (Normal) M-[place], % Not Observed % (Normal) Dmucp-1-Atvlqtlg, U 7.6 % (Normal) Beta Globulin, U 15.9 % (Normal) Albumin, U 64.4 % (Normal) Mbcth-5-Univybwa, U 4.7 % (Normal) Protein,Total,Urine 22.6 mg/dL (Abnormal) Range: 0.0-15.0 :39 Protein Electro.,S Comments: PERFORMED BY: [employer] Power SystemsMeadowview Psychiatric HospitalGmwklz6985 [facility] [id number] A/G Ratio 1.1 (Normal) Range: 0.7-2.0 Please note: SPRCS (Normal) Comments: Protein electrophoresis scan will follow via computer, mail, orcourier delivery. Globulin, Total 2.9 g/dL (Normal) Range: 2.0-4.5 M-[place] Not Observed g/dL (Normal) Gamma Globulin 0.9 g/dL (Normal) Range: 0.5-1.6 Chgpe-5-Zonfaxdt 0.9 g/dL (Normal) Range: 0.4-1.2 Beta Globulin 0.8 g/dL (Normal) Range: 0.6-1.3 Albumin 3.3 g/dL (Normal) Range: 3.2-5.6 Prqzs-9-Zemnqnal 0.3 g/dL (Normal) Range: 0.1-0.4 PTH, Intact 26 pg/mL (Normal) Comments: PERFORMED BY: [employer]6370 [facility] [id number] 3:39 Range: 15-65 Sedimentation 6 mm/h (Normal) Comments: PERFORMED BY: [employer]6370 [facility] [id number] 3:39 Rate-Westergren Range: 0-40 Vitamin D, 25-Hydroxy 27.3 ng/mL Comments: PERFORMED BY: [employer]6370 [facility] [id number] 3:39 (Abnormal) Range: 30.0-100.0 Comments: Vitamin D deficiency has been defined by the [place] of[facility] Centercine and an Endocrine Society practice guideline as alevel of serum 25-OH vitamin D less than 20 ng/mL (1,2).The Endocrine Society went on to further define vitamin Dinsufficiency as a level between 21 and 29 ng/mL (2).1. IOM ([place] of Medicine). 2010. Dietary reference intakes for calcium and D. [place]: The National Academies Press.2. Armond MF, Rosa IRIZARRY, Kyler ANDREWS, et al. Evaluation, treatment, and prevention of vitamin D deficiency: an Endocrine Society clinical practice guideline. JCEM. 2010; 96(7):1911-30. 4-Fzb-953878:34 CHEST, PA AND LATERAL Radiology Report See [...] Castillo M.D.June 03, 2012 at 4:01:15 PM [id number] Signed GP/GP If you are the referring physician and would like to consult with theradiologist who pro vided this interpretation, please contact Argenis Grace at [phone]. If this radiologist is unavailable, youwill be directed to another radiologist to assist. If you are a patient with a q uestion regarding this report, pleasecontactyour referring physician directly. Professional Interpretation Provided By: [employer], Phone , These documents contain legally protected [...] documents. Dictated on 06/03/12 1532 by Jonathan AVILA,ChristopherrieleTranscribed on 06/03/12 1605 by ITS IMPORTSign by Kit Castillo MD on 06/03/12 1606 Sign by: Kit Castillo MD 8-Giz-656549:10 SED RATE ERYTHROCYTE (41503) Comments: PATIENT NOT FASTINGPERFORMED BY: CB [facility] Zyrglb0676 [facility] [id number] Sedimentation Rate-Westergren 3 mm/h (Normal) Range: 0-40 4-Pli-111179:10 TSH (19987) Comments: PATIENT NOT FASTINGPERFORMED BY: CB [facility] Gclzsd1147 [facility] [id number] TSH 2.260 {uIU/mL} (Normal) Range: 0.450-4.500 :10 METABOLIC PANEL, COMPREHENSIVE Comments: PATIENT NOT FASTINGPERFORMED BY: CB [facility] Atmpoq4123 [facility] [id number] (76632) ALT (SGPT) 19 [iU]/L (Normal) Range: 0-32 [...] Glucose, Serum 89 mg/dL (Normal) Range: 65-99 9-Kvq-936337:10 CBC WITH MANUAL DIFF Comments: PATIENT NOT FASTINGPERFORMED BY: LabCoMeadowview Psychiatric HospitalOwcmor1400 [facility] [id number] Information: [id number] (12553) Immature Grans (Abs) 0.0 {x10E3/uL} (Normal) Range: [...] 3.77-5.28 WBC 8.5 {x10E3/uL} (Normal) Range: 4.0-10.5 6-Hng-032754:04 CHEST, PA AND LATERAL Radiology Report See [...] Joyce M.D.March 01, 2012 at 5:17:18 PM EST([phone] Signed AM/AM If you are the referring physician and would like to consult with theradiologist who provided this interpretation, please contact Toyin Joyce M.D. at . If this radiologist is unavailable, you will bedirected to another radiologist to assist. If you are a patient with a question regarding this report, pleasecontactyour referring physician directly. Professional Interpretation Provided By: [employer], Phone , These documents contain legally protected [...] 03/01/12 1722 Sign by: Toyin Joyce MD 4-Nbl-699400:04 RIBS,UNI,MIN 3V,W/PA CHEST Radiology Report See Note [...] Joyce M.D.March 01, 2012 at 4:43:34 PM [phone] Sig jim AM/AM If you are the referring physician and would like to consult with theradiologist who provided this interpretation, please contact Toyin Joyce M.D. at . If this radiologist is sagrario vailable, you will bedirected to another radiologist to assist. If you are a patient with a question regarding this report, pleasecontactyour referring physician directly. Professional Interpretation Pr ovided By: [employer], Phone , These documents contain legally protected [...] destructionofthese documents. Dictated on 03/01/12 1420 by Brianna Joyce MDaTranscribed on 03/01/121651 by ITS IMPORTSign by Toyin Barron MD on 03/01/121652 Sign by: Toyin Joyce MD :58 ESOPHAGUS ONLY Radiology Report See Note (Normal) [...] Castillo M.D.January 11, 2012 at 10:08:04 AM [id number] ronically Signed GP/GP If you are the referring physician and would like to consult with theradiologist who provided this interpretation, please contact Argenis Grace at [phone]. If this radiologist is unavailable, youwill be directed to another radiologist to assist. If you are a patient with a question regarding this report, pleasecontactyour referring physician directly. Professional Interpretation Provided By: [employer], Phone , These documents contain legally protected [...] 01/11/12 1015 Sign by: Kit Castillo MD [id number] URINE RAYSA CULTURE (ABA Comments: PATIENT NOT FASTINGPERFORMED BY: LabDon[place] [id number] [facility] [id number] Information: SRC:UR COL COUNT) ([id number]) Result 1 MUG (Normal) Comments: Mixed urogenital flora2,000 Colonies/mL Urine Culture,Comprehensive Final report (Normal) 7-Xzn-234240:40 Urinalysis, Office (78459) UA - BILIRUBIN Negative (Normal) UA - BLOOD Non Hemolyzed Trace (Normal) UA - GLUCOSE Negative (Normal) UA - KETONES Negative mg/dL (Normal) UA - LEUKOCYTE ESTERASE Negative (Normal) UA - NITRITE Negative (Normal) UA - PH 6.5 (Normal) UA - PROTEIN Trace mg/dL (Normal) UA - SPECIFIC GRAVITY 1.020 (Normal) URINE UROBILINGN ABA TIMED Normal mg/dL (Normal) 80-Dct-86805:59 URINE RAYSA CULTURE-IDENTIFICATN Comments: PATIENT NOT FASTINGPERFORMED BY: [place] [id number] [facility] [id number] Information: [id number] ([id number]) Result 1 MUG (Normal) Comments: Mixed urogenital floraGreater than 100,000 colony forming units per mL Urine Culture,Comprehensive Final report (Normal) :04 Urinalysis, Office (88102) UA - BILIRUBIN Negative (Normal) UA - BLOOD Non Hemolyzed Trace (Normal) UA - GLUCOSE Negative (Normal) UA - KETONES Negative mg/dL (Normal) UA - LEUKOCYTE ESTERASE Trace (Normal) UA - NITRITE Negative (Normal) UA - PH 6.5 (Normal) UA - PROTEIN 30 mg/dL (Normal) UA - SPECIFIC GRAVITY 1.025 (Normal) URINE UROBILINGN ABA TIMED Normal mg/dL (Normal) 2-Zcz-294306:23 URINE RAYSA CULTURE (ABA Comments: PATIENT NOT FASTINGPERFORMED BY: [facility] Lbvrxt3800 [facility] [id number] Information: SRC:ALBERTO [id number] COL COUNT) (89158) Antimicrobial MIHEAD (Normal) Comments: S = Susceptible; [...] Colonies/mL (Normal) Urine Final report Culture,Comprehensive (Normal) 2-Ozl-186582:54 Urinalysis, Office (43156) UA - BILIRUBIN Negative (Normal) UA - BLOOD Hemolyzed Small (Normal) UA - GLUCOSE Negative (Normal) UA - KETONES Negative mg/dL (Normal) UA - LEUKOCYTE ESTERASE Negative (Normal) UA - NITRITE Negative (Normal) UA - PH 7.0 (Normal) UA - PROTEIN Negative mg/dL (Normal) UA - SPECIFIC GRAVITY 1.015 (Normal) URINE UROBILINGN ABA TIMED Normal mg/dL (Normal) 27-Uva-34237:00 BILAT SCRN DIGITAL & CAD Radiology Report [...] EDTElectronically Signed MV/MV Professional Interpretation Provided By: [employer] [facility], , To consult with a radiologist regarding this report, please call our [id number] line @ Dictated on 10/08/11 1202 by CHANA AVILA,Clayanscribed on 10/08/11 1431 by ITS IMPORTSign by CHANA AVILA,CASSIE on 10/08/11 143 Sign by: CASSIE ZAYAS MD 76-Gqo-152501:42 FECAL OCCULT HGB ASSAY- tubes sent home (30541) FECAL OCCULT HGB ASSAY, QUAL, 1-3 SIMULTANEOU Negative (Normal) 77-Fqz-026279:31 URINE RAYSA CULTURE-ABA COL Comments: PATIENT NOT FASTINGPERFORMED BY: [facility]Car[facility]Mont [facility] [id number] Information: SRC:UR [id number] COUNT ([id number]) Result 1 MUG (Normal) Comments: Mixed urogenital floraGreater than 100,000 colony forming units per mL Urine Culture,Comprehensive Final report (Normal) 9-Mwu-464231:06 Urinalysis, Office (60625) UA - BILIRUBIN Negative (Normal) UA - BLOOD Hemolyzed Large (Normal) UA - GLUCOSE Negative (Normal) UA - KETONES Negative mg/dL (Normal) UA - LEUKOCYTE ESTERASE Negative (Normal) UA - NITRITE Negative (Normal) UA - PH 6.0 (Normal) UA - PROTEIN 30 mg/dL (Normal) UA - SPECIFIC GRAVITY 1.025 (Normal) URINE UROBILINGN ABA TIMED Normal mg/dL (Normal) 2-Fch-548803:19 URINE RAYSA CULTURE (ABA Comments: PATIENT NOT FASTINGPERFORMED BY: [facility] LogicCar[facility] [id number] Information: SRC:UR [id number] COL COUNT) ([id number]) Result 2 MUG (Normal) Comments: Mixed urogenital [...] 1,000 Colonies/mL (Normal) Urine Final report (Normal) Culture,[facility] 0-Jtf-984220:43 URINE RAYSA CULTURE-ABA COL Comments: PATIENT NOT FASTINGPERFORMED BY: [employer] Ikskvk2239 [facility] [id number] Information: SRC:UR [id number] COUNT ([id number]) Result 1 MUG (Normal) Comments: Mixed urogenital flora5,000 Colonies/mL Urine Culture,Comprehensive Final report (Normal) 6-Ezq-310718:45 Urinalysis, Office (14446) UA - BILIRUBIN Negative (Normal) UA - BLOOD Non Hemolyzed Trace (Normal) UA - GLUCOSE Negative (Normal) UA - KETONES Small mg/dL (Normal) UA - LEUKOCYTE ESTERASE Trace (Normal) UA - NITRITE Negative (Normal) UA - PH 7.0 (Normal) UA - PROTEIN 30 mg/dL (Normal) UA - SPECIFIC GRAVITY 1.025 (Normal) URINE UROBILINGN ABA TIMED Normal mg/dL (Normal) 14-Xcs-606181:27 URINE RAYSA CULTURE-ABA COL Comments: PATIENT NOT FASTINGPERFORMED BY: [employer] Cjbnfk4153 [facility] [id number] COUNT ([id number]) Result 1 Escherichia coli (Normal) Comments: 50,000-100,000 [...] STrimethoprim/Sulfa S Urine Final report (Normal) Culture,Comprehensive :03 Microscopic Examination Comments: PATIENT WAS FASTINGPERFORMED BY: [employer] Qmcozm4223 [facility] [id number] Bacteria Moderate (Abnormal) Mucus Threads Present (Normal) Epithelial Cells (non renal) 0-10 {/hpf} (Normal) Range: 0 - 10 RBC 0-3 {/hpf} (Normal) Range: 0 - 3 WBC 6-10 {/hpf} (Abnormal) Range: 0 - 5 :03 TSH (03818) Comments: PATIENT WAS FASTINGPERFORMED BY: [employer] Power SystemsMeadowview Psychiatric HospitalMnqkbi5518 [facility] [id number] TSH 3.100 {uIU/mL} (Normal) Range: 0.450-4.500 :03 URINALYSIS, W/ MICRO Comments: PATIENT WAS FASTINGPERFORMED BY: [facility]SpringAsp[facility]6370 [facility] [id number] Information: [id number] (80250) Microscopic Examination See below: (Normal) Nitrite, Urine Positive (Abnormal) Urobilinogen,Semi-Qn 0.2 mg/dL (Normal) Range: 0.0-1.9 Bilirubin Negative (Normal) Occult Blood Negative (Normal) Ketones Negative (Normal) Glucose Negative (Normal) Protein Trace (Normal) WBC Esterase Negative (Normal) Appearance Cloudy (Abnormal) Urine-Color Yellow (Normal) pH 7.0 (Normal) Range: 5.0-7.5 Specific [place] 1.022 (Normal) Range: 1.005-1.030 59-Lly-84774:03 MICROALBUMIN: CREATININE RATIO Comments: PATIENT WAS FASTINGPERFORMED BY: [facility] [id number] ([id number]) AND (78800) Microalb/Creat Ratio 6.2 {mg/g_creat} (Normal) Range: 0.0-30.0 Microalbumin, Urine 9.9 ug/mL (Normal) Range: 0.0-17.0 Creatinine, Urine 160.0 mg/dL (Normal) Range: 15.0-278.0 :03 LIPID PANEL (76665) Comments: PATIENT WAS FASTINGPERFORMED BY: [facility]SpringAsp[facility]6370 [facility] [id number] LDL/HDL Ratio 1.7 {ratio_units} (Normal) Range: 0.0-3.2 LDL Cholesterol Calc 127 mg/dL (Abnormal) Range: 0-99 VLDL Cholesterol Pete 21 mg/dL (Normal) Range: 5-40 HDL Cholesterol 73 mg/dL (Normal) Comments: According to ATP-III Guidelines, HDL-C >59 mg/dL is considered anegative risk factor for CHD. Triglycerides 105 mg/dL (Normal) Range: 0-149 Cholesterol, Total 221 mg/dL (Abnormal) Range: 100-199 :35 TSH (25750) Comments: PATIENT NOT FASTINGPERFORMED BY: [facility]6370 [facility] [id number] TSH 1.330 {uIU/mL} (Normal) Range: 0.450-4.500 0-Xkl-211186:35 METABOLIC PANEL, COMPREHENSIVE Comments: PATIENT NOT FASTINGPERFORMED BY: [facility]6370 [facility] [id number] (34796) Alkaline Phosphatase, S 92 [iU]/L (Normal) Range: [...] Glucose, Serum 77 mg/dL (Normal) Range: 65-99 4-Ihm-302689:35 CBC WITH MANUAL DIFF Comments: PATIENT NOT FASTINGPERFORMED BY: [facility] Gnsmsn1844 [facility] [id number] Information: [id number] (13052) Immature Grans (Abs) 0.0 {x10E3/uL} (Normal) Range: [...] 3.80-5.10 WBC 7.4 {x10E3/uL} (Normal) Range: 4.0-10.5 08-Wvl-564642:28 [facility] DIGITAL & CAD Radiology Report See Note (Normal) Comments: MAMMOGRAPHY - BILATERAL SCREENING INDICATION:Female, 75 years old. Routine annual screening examination. PERTINENT HISTORY:Non-contributory. TECHNIQUE:Digital examination. Mediolateral oblique (MLO) a nd craniocaudad (CC)views of both breasts were obtained. CAD: CAD was performed on thisstudy. COMPARISON:Comparison is made with prior examination from an outside institutiondatedMarch 12, 2008. FIND INGS:The breast composition is almost entirely [...] clinically suspiciousa bnormality. Dictated on 09/19/10951 by Tamica Castillo MDranscribed on 09/19/101850 by ITS IMPORTSign by Kit [...] mg/L (Normal) UR CREAT 52.1 mg/dL (Normal) 93-Pzq-64185:56 TSH 4.12 {uIU/mL} (Abnormal) Comments: appt 09/08/10 Range: 0.358-3.74 28-Aug-20100:00 ABDOMEN WITHOUT CONTRAST Radiology Report See Note (Normal) Comments: CLINICAL:Cholecystectomy. Dilated pancreatic duct. Abdominal pain MRI ABDOMEN WITHOUT CONTRAST AND MRCP TECHNIQUE:Standardized fat and water weighted pulse sequences were obtained in qwk3yikymyvmbr pl anes. COMPARISON:08/27/2010 CT scan FINDINGS:Normal liver [...] renal cyst. Dictated on 08/28/10 1442 by Nai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
--- OUTSIDE RECORDS SUMMARY | 2018-05-23 13:38 | XMS RPT_ITS | Continuity of Care Document ---
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 chronic respiratory failure on 3 L oxygen 70-aotn-ltgw history smoking (2) HLD (hyperlipidemia) Status: Chronic [...] of GI bleed who presents to the [facility] ED on 07/26/14 w/ complai [...] chronic respiratory failure on 3 L oxygen 15-pbil-npqy history smoking Coronary atherosclerosis of [place] coronary artery (Chronic) Status post PTCA and [...] repair. 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 Lives: [...] 78.0 H Lymph % (Auto) 7.8 L [place] % (Auto) 11.3 H Eos % (Auto) [...] of GI bleed who presents to the [facility] ED on 07/26/14 w/ complaint [...] 4 Views Result: Comments: See Note; NOTES: [facility] Imaging Services [address] [place] [address] Radiology Report MR#: [id number] Acct: [id number] Name: KILEY DREW Jada Rep #: [id number] : 1935 F 78 From: Toy Loja MD PCP: Priya Jimenez DO Status: REG CLI Study: L/S Spine Min 4 Views Date of Exam: 07/03/14 Exam# [id number] Ordering Dr: Kenn Aragon STUDY: X-RAY - [...] MD at 18:34 EDT , Service support [phone], Fax RAD/L/S Spine Min 4 Views IMPRESSION: Stable compression deformity of L5. Stable compression deformity of T11. Electronically Signed: Toy Loja MD at 18:34 EDT , Service support [phone], CC: Kenn Aragon; Priya Jimenez DO Power Press Supervisor: Signed 11-May-2014 Chest 1 View (Portable) Result: Comments: See Note; NOTES: [facility] Imaging Services [address] [place] [address] Radiology Report MR#: [id number] Acct: [id number] Name: KILEY DREW Rep #: [id number] : 1935 F 78 From: Ester Bautista MD PCP: Priya Jimenez DO Status: [facility] ER Study: Chest 1 View (Portable) Date of Exam: 05/11/14 Exam# [id number] Ordering Dr: Moncho Sahu MD STUDY: X-RAY [...] at 14:05 EST Tel , Service support [phone], RAD/Chest 1 View (Portable) IMPRESSION: There are stable findings. Electronically Signed: Ester Bautista MD at 14:05 EST , Service support [phone], CC: Priya Jimenez DO; Moncho Sahu MD Power Press Supervisor: Signed 23-Apr-2014 Chest PA and Lateral Result: Comments: See Note; NOTES: [facility] Imaging Services [address] [place] [address] Radiology Report MR#: [id number] Acct: [id number] Name: KILEY DREW Rep #: [id number] : 1935 F 78 From: Edmundo Zhou MD PCP: Priya Jimenez DO Status: REG CLI Study: Chest PA and Lateral Date of Exam: 04/23/14 Exam# [id number] Ordering Dr: Sincere Castillo MD STUDY: X-RA [...] Danny Zhou MD at 14:32 EST Tel [phone], Service support [phone], CC: Sincere Castillo MD; Priya Jimenez DO Power Press Supervisor: Signed 17-Apr-2014 Pulmonary Function Report Comp Result: Comments: See Note; NOTES: [facility] Pulmonary Services/Neurology [address] [place] [address] Pulmonary Function Test (Comp) MR#: [id number] Acct: [id number] Name: KILEY TEMPLE Rep #: [id number] : 1935 78 From: Sincere Castillo MD Referring Dr: Sincere Castillo MD Status: REG CLI Ordering Dr: Sincere Castillo MD Date: 04/13/14 Location: PSN Sex: F C Date: 03/26 01/07 Tech.: [...] Dictated: 04/14/14 1110 Date Transcribed: 04/15/14 0705 Power Press Supervisor: CAROL ANN Signed 31-Jan-2014 Echocardiogram, Limited Study Result: Comments: See Note; NOTES: [facility] Cardiovascular Services [address] [place] [address] Echo, Limited Study 01/31/14 1347 MR#: [id number] Acct: [id number] Name: KILEY TEMPLE Rep #: [id number] : 1935 78 From: Pete Castro MD [...] Dictated: 01/31/14 1347 Date Transcribed: 01/31/14 1539 Power Press Supervisor: Signed 13-Nov-2013 Echocardiogram Complete Result: Comments: See Note; NOTES: [facility] Cardiovascular Services [address] [place] [address] Echo Complete 11/13/13 1321 MR#: [id number] Acct: [id number] Name: REGAN DREW RA Rep #: [id number] : 1935 78 From: Kaden Barboza MD Attending Dr: Tamra AVILA,Kaden Status: REG CLI Ordering Dr: Kaden Barboza MD Date: 11/13/13 Location: [facility] Sex: F C Admitted: [facility] e This was a 2D Doppler, Color [...] Physician: Kaden Barboza Performed By: Zee Joya RDCS : Kaden Barboza MD; Priya Jimenez DO Date Dictated: 11/13/13 1321 Date Transcribed: 11/13/13 1631 Power Press Supervisor: Signed 27-Sep-2013 Dexa Bone Density Study (HP) Result: Comments: See Note; NOTES: [facility] Imaging Services [address] [place] [address] Bone Density Report MR#: [id number] Acct: [id number] Name: KILEY DREW Rep #: [id number] : 1935 F 78 From: Kit Castillo MD PCP: Priya Jimenez DO Status: [facility] CLI Study: Dexa Bone Density Study (HP) Date of Exam: 09/27/13 Exam# [id number] Ordering Dr: Terrie Jimenez DO STUDY: DUAL [...] a moderate fracture risk. On the lateral cost control analyst view, there is evidence of increased kyphosis. [...] Kit Castillo MD at 14:27 EDT Tel [phone], Service support [phone], CC: Priya Jimenez DO Power Press Supervisor: Signed 16-Aug-2013 Kidney and Bladder Result: Comments: See Note; NOTES: [facility] Imaging Services [address] [place] [address] Ultrasound Report MR#: [id number] Acct: [id number] Name: KILEY DREW Rep #: [id number] : 1935 F 77 From: Kit Castillo MD PCP: Priya Jimenez DO Status: REG CLI Study: Kidney and Bladder Date of Exam: 08/16/13 Exam# [id number] Ordering Dr: Ross Mello MD STUDY: RENAL [...] Kit Castillo MD at 9:30 EDT Tel [phone], Service sup port [phone], CC: Priya Jimenez DO; Ross Mello MD Power Press Supervisor: Signed Immunization Name Dates Details Influenza (3 years and up) on: 03-Jan-2009 Comments: Lot #:[id number] date: mount given: 0.5 mlRoute: IMSite [...] Active Vital Signs Date Test Result Details 32-Ouk-170957:21 Comments: hearing wnlDr. Chambers and had glaucoma [...] Area Calculated 1.61 m2 :41 Comments: hearing wnlDr. Chambers and had a glaucoma test done [...] kg/m2 Body Surface Area Calculated 1.65 m2 11-Ykc-942083:17 Pulse 85 /min Comments: Pattern: Regular Respiration [...] W/Diff, Automated Comments: Reason for Laboratory Test .[facility] [address] [place], [address] Absolute Lymph 0.86 {X10_3/ul} (Normal) Range: 0.83-4.51 [...] 4.2-5.4 WBC 8.0 K/mm3 (Normal) Range: 4.4-11.0 09-Vsw-85158:45 Comprehensive Metabolic Profil Comments: [facility] [address] [place], [place], [phone] GAP 6 (Normal) Range: 5-15 CO2 42.0 [...] A.D.A. criteria.Please note revised GLUCOSE reference range fzglveyna35/02/2018. :45 Ferritin Comments: [facility] [address] [place], [place], [phone] FERRITIN 261 ng/mL (Abnormal) Range: 8-252 :45 Iron+Iron Binding Capacity Comments: [facility] [address] [place], [place], [phone] IRON SATURATION 19.1 % (Normal) Range: 15.0-55.0 IRON 63 ug/dL (Normal) Range: 50-170 TIBC 329 ug/dL (Normal) Range: 250-450 :00 CBC W/Diff, Automated Comments: [facility] [address] [place], [place], [address] Absolute Lymph 1.19 {X10_3/ul} (Normal) Range: 0.83-4.51 [...] Range: 4.4-11.0 25-Oct-20170:00 Comprehensive Metabolic Profil Comments: [facility] [address] [place], [address] GAP 5 (Normal) Range: 5-15 CO2 43.0 [...] Comments: Please note revised GLUCOSE reference range rvxmpsrku94/02/2018. 25-Oct-20170:00 Lipid Profile Comments: [facility] [address] [place], [address] VLDL 12 mg/dL (Normal) Range: 5-40 LDL [...] High Risk 25-Oct-20170:00 Microalb:Creat Ratio,Random UR Comments: [facility] [address] [place], [place], [phone] MALB:CREAT 38.8 {mg/g_CRE} (Abnormal) MICROALBUMIN,UR 27.3 mg/L (Normal) UR CREAT 70.40 mg/dL (Normal) 25-Oct-20170:00 Miscellaneous Lab Procedure Comments: Test(s) Ordered: [id number] calcifediol room temp/ serum or [facility] [address] [place], [phone] MISC Comments: TEST RESULT LIMITSCalcitriol (1,25 di-OH Vit D) 42.8 pg/mL 19.9 - 79.3 TESTING [facility]FOR[facility] AT [facility] (Normal) NAL REPORT ON FILE IN LAB CONTAINS ADDITIONAL TEST SITE INFORMATION. TEST :00 Thyroid Stim Hormone (TSH) Comments: [facility] [address] [place], [phone] TSH 2.95 {uIU/mL} (Normal) Range: 0.358-3.74 25-Oct-20170:00 Urinalysis, Complete Comments: How was Urine Obtained? CLEAN [facility] [address] [place], [phone] HYALINE CAST 0-5 SEEN {/lpf} (Normal) Range: [...] 25-Oct-20170:00 Vitamin B12 627 pg/mL (Normal) Comments: [facility] [address]baqclbq7424 [facility] [place], [place], [address] Range: 211-911 59-Eqc-72012:00 CBC W/Diff, Automated Comments: [facility] P[address]xwolxss1726 [facility]. [place], [place], [address] Absolute Lymph 1.16 {X10_3/ul} (Normal) Range: 0.83-4.51 [...] 4.2-5.4 WBC 9.0 K/mm3 (Normal) Range: 4.4-11.0 89-Wvj-76102:00 Vitamin B12 851 pg/mL (Normal) Comments: [facility] [address] [place], [place], [phone] Range: 211-911 17-Kkz-866999:33 CBC W/Diff, Automated Comments: [facility] [address] [place], [place], [address] Absolute Lymph 1.38 {X10_3/ul} (Normal) Range: 0.83-4.51 [...] 4.2-5.4 WBC 8.4 K/mm3 (Normal) Range: 4.4-11.0 73-Ast-696138:20 Basic Metabolic Profile (BMP) Comments: [facility] [address] [place], [phone] GAP Test not performed (Normal) Range: 5-15 [...] 7-18 GLU 103 mg/dL (Normal) Range: 70-110 9-Njf-600437:00 Magnesium Comments: [facility] [address] [place], [phone] MG 1.8 mg/dL (Normal) Range: 1.8-2.4 9-Jyg-202055:00 Potassium Comments: [facility] [address] [place], [phone] K 3.4 mmol/L (Abnormal) Range: 3.5-5.1 0-Ddc-774816:18 CBC W/Diff, Automated Comments: [facility] [address] [place], [address] Absolute Lymph 1.22 {X10_3/ul} (Normal) Range: 0.83-4.51 [...] 4.2-5.4 WBC 8.9 K/mm3 (Normal) Range: 4.4-11.0 8-Puv-962128:05 Comprehensive Metabolic Profil Comments: Reason for Laboratory Test .[facility] [address] [place], [address] GAP 3 (Abnormal) Range: 5-15 CO2 40.0 [...] 7-18 GLU 93 mg/dL (Normal) Range: 70-110 0-Oms-728739:05 Ferritin Comments: Reason for Laboratory Test .[facility] [address] [place], [place], [phone] FERRITIN 311 ng/mL (Abnormal) Range: 8-252 0-Acf-310388:05 Iron+Iron Binding Capacity Comments: Reason for Laboratory Test .[facility] [address] [place], [place], [phone] IRON SATURATION 16.5 % (Normal) Range: 15.0-55.0 IRON 53 ug/dL (Normal) Range: 50-170 TIBC 322 ug/dL (Normal) Range: 250-450 73-Ujm-625992:36 CBC W/Diff, Automated Comments: [facility] [address] [place], [place], [phone] Absolute Lymph 1.34 {X10_3/ul} (Normal) Range: 0.83-4.51 [...] 4.2-5.4 WBC 8.1 K/mm3 (Normal) Range: 4.4-11.0 38-Uin-419015:36 Comprehensive Metabolic Profil Comments: Reason for Laboratory Test [facility] Bzjfjjtgho2165 [facility] [place], [place], [address] GAP 8 (Normal) Range: 5-15 CO2 38.0 [...] 7-18 GLU 80 mg/dL (Normal) Range: 70-110 14-Jkm-291245:36 Ferritin Comments: Reason for Laboratory Test [facility] Pzvoqkddwb3707 [facility]. [place], [place], [phone] FERRITIN 249 ng/mL (Normal) Range: 8-252 53-Wsr-097211:36 Iron Comments: Reason for Laboratory Test [facility]IA[facility] [address] [place], [place], [phone] IRON 69 ug/dL (Normal) Range: 50-170 0-Znw-188119:40 CBC W/Diff, Automated Comments: [facility] [address] [place], [place], [address] Absolute Lymph 1.03 {X10_3/ul} (Normal) Range: 0.83-4.51 [...] 4.2-5.4 WBC 8.9 K/mm3 (Normal) Range: 4.4-11.0 4-Msy-709814:40 Comprehensive Metabolic Profil Comments: Reason for Laboratory Test [facility] [address]znw4[address] [place], [place], [phone] GAP 3 (Abnormal) Range: 5-15 CO2 40.0 [...] 7-18 GLU 71 mg/dL (Normal) Range: 70-110 9-Nvv-174670:40 Ferritin Comments: Reason for Laboratory Test [facility] [address] [place], [place], [address]) FERRITIN 178 ng/mL (Normal) Range: 8-252 5-Kgf-865314:40 Iron Comments: Reason for Laboratory Test [facility] [address] [place], [place], [address](572) IRON 59 ug/dL (Normal) Range: 50-170 67-Aog-879253:12 CALCIFIDIOL (36067) VIT D 25 Comments: PATIENT WAS FASTINGPERFORMED BY: [facility] [address] [facility] [id number] Vitamin D, 25-Hydroxy 21.8 ng/mL (Abnormal) Range: 30.0-100.0 Comments: Vitamin D deficiency has been defined by the [place] of[place] and an Endocrine Society practice guideline as alevel of serum 25-OH vitamin D less than 20 ng/mL (1,2).The Endocrine Society went on to further define vitamin Dinsufficiency as a level between 21 and 29 ng/mL (2).1. IOM ([place] [employer]). 2010. Dietary reference intakes for calcium and D. [place]: The National Academies Press.2. Armond MF, Rosa IRIZARRY, Kyler ANDREWS, et al. Evaluation, treatment, and prevention of vitamin D deficiency: an Endocrine Society clinical practice guideline. JCEM. 2010; 96(7):1911-30. 63-Klr-416014:12 VITAMIN B-12 (CYANOCOBALAMIN) Comments: PATIENT WAS FASTINGPERFORMED BY: [facility] [facility] [id number] ([address]) Vitamin B12 517 pg/mL (Normal) Range: 211-946 94-Ytn-264779:12 TSH (98898) Comments: PATIENT WAS FASTINGPERFORMED BY: [facility] [facility] [id number] TSH 1.500 {uIU/mL} (Normal) Range: 0.450-4.500 32-Wgu-522038:12 METABOLIC PANEL, COMPREHENSIVE Comments: PATIENT WAS FASTINGPERFORMED BY: [facility] [facility] [id number] ([address]) ALT (SGPT) 14 [iU]/L (Normal) Range: 0-32 [...] Glucose, Serum 83 mg/dL (Normal) Range: 65-99 28-Fzp-212226:12 LIPID PANEL (27408) Comments: PATIENT WAS FASTINGPERFORMED BY: [facility] Gpjrxf77[address] [place] [id number] LDL/HDL Ratio 1.0 {ratio_units} (Normal) Range: 0.0-3.2 Comments: LDL/HDL Ratio Men Women 1/2 Avg.Risk 1.0 1.5 Av g.Risk 3.6 3.2 2X Avg.Risk 6.2 5.0 3X Avg.Risk 8.0 6.1 LDL Cholesterol Calc 77 mg/dL (Normal) Range: 0-99 VLDL Cholesterol Pete 18 mg/dL (Normal) Range: 5-40 HDL Cholesterol 78 mg/dL (Normal) Triglycerides 89 mg/dL (Normal) Range: 0-149 Cholesterol, Total 173 mg/dL (Normal) Range: 100-199 89-Zzu-116795:09 CBC W/Diff, Auto - EPLAB Comments: At [facility] Outpatient [facility] Medical Oncologypatients receive CBC w/auto Differential ONLY. Physicianwill place an order for a manual differential or Pathologistreview at his discretion. [facility] OUTPATIENT [facility]. [address] [place] [address] [address] CARGO SERVICE AGENT: KURTIS STEVENS DO PH:[phone] Health [facility]amisburg [address] [place], [address] Absolute Lymph 1.19 {X10_3/uL} (Normal) [...] 4.2-5.4 WBC 9.0 K/mm3 (Normal) Range: 4.4-11.0 72-Elk-604359:10 CBC W/Diff, Automated Comments: [facility] [address] [place], [place], [address] Absolute Lymph 0.80 {X10_3/ul} (Abnormal) Range: 0.83-4.51 [...] 4.2-5.4 WBC 6.2 K/mm3 (Normal) Range: 4.4-11.0 09-Npf-898414:25 CBC W/Diff, Auto - EPLAB Comments: At [facility] Medical Oncologypatients receive CBC w/auto Differential ONLY. Physicianwill place an order for a manual differential or Pathologistreview at his discretion. [facility] OUTPATIENT [facility]. [address] [place] [address] [address] CARGO SERVICE AGENT: KURTIS STEVENS DO PH:[phone] Health [facility]burg [address] [place], [address] Absolute Lymph 0.75 {X10_3/uL} (Abnormal) [...] 4.2-5.4 WBC 7.7 K/mm3 (Normal) Range: 4.4-11.0 0-Riv-882819:50 Urinalysis, Complete Comments: How was Urine Obtained? HEATER HELPER TO SPECIFYKettering Health Miamisburg [address] [place], [place], [phone] MUCUS, URINE 0 SEEN {/hpf} (Normal) BACTERIA [...] CLARITY Sl. Cloudy (Normal) COLOR Yellow (Normal) 0-Ffk-338438:00 Basic Metabolic Profile (BMP) Comments: [facility] [address] [place], [place], [address] GAP 6 (Normal) Range: 5-15 CO2 38.0 [...] 7-18 GLU 101 mg/dL (Normal) Range: 70-110 0-Rmf-105813:00 CBC W/Diff, Automated Comments: [facility] [address] [place], [place], [address] Absolute Lymph 0.60 {X10_3/ul} (Abnormal) Range: 0.83-4.51 [...] 4.4-11.0 :30 Miscellaneous Lab Procedure Comments: Comments: [id number], [id number](s) Ordered: Flow [id number] Test(s) Ordered by Physician: Cytogenetics [id number] [facility] Pvryodmbmx5312 [facility] [address] [place], [place], [address] [facility] LAB TEST FLOW-SEE PTH (Normal) :30 Miscellaneous Lab Procedure 2 Comments: Comments: [id number], [id number](s) Ordered: Flow [id number] Test(s) Ordered by Physician: Cytogenetics [id number] Health Miamisburg [address] [place], [place], [address] [facility] LAB TEST 2 CYTO-SEE PTH (Normal) :03 CBC W/Diff, Auto - EPLAB Comments: At [facility] Outpatient [facility] Medical Oncologypatients receive CBC w/auto Differential ONLY. Physicianwill place an order for a manual differential or Pathologistreview at his discretion. [facility]. [address] [place] [address] [address] CARGO SERVICE AGENT: KURTIS STEVENS DO PH:[phone] Health Miamisburg [address] [place], [place], [address] Absolute Lymph 0.74 {X10_3/uL} Range: 0.83-4.51 (Abnormal) [...] BONE MARROW BIOPSY See Note (Normal) Comments: [facility] [address] [place], [address] 0 Comments: Patient: KILEY DREW : 1935 (80/F) Acct Num: [id number] Phys: Devon Jenkins Unit Num: [id number] Loc: [facility] Specimen: [id number] Received: 11/26/15 - 0950 Spec Type: BMB TISSUES TISSUES: ADDENDUM Addendum Number 1 CYTOGENETICS REPORT FROM [facility] CYTOGENETIC RESULT: 46,XX[20] INTERPRETATION: Normal female karyotype was observed in twenty m etaphases analyzed. Please see complete report in e-chart or EMR for further details Addendum Signed Kurtis [facility] 12/05/15 <signa ture on file> BONE MARROW GROSS A - [...] and cytogenetics. / TIFFANIE:manas 11/26/15 TC:0 CPT: 15862, 28537, 29186 x2, 32097 x3, 69687 BONE MARROW STUDY Slides are reviewed. CBC [...] send outs (flow and cytogenetics) Signed Kurtis Hilda 11/29/15 <signature on file> :0 IMMUNOHISTOCHEMISTRY See Note (Normal) Comments: [facility] [address] [place], [address] 0 Comments: Patient: KILEY DREW : 1935 (80/F) Acct Num: [id number] Phys: Devon Jenkins Unit Num: [id number] Loc: [facility] Specimen: [id number] Received: 11/27/151309 Spec Type: IMMUNO TISSUES TISSUES: SPECIMEN INFORMATION: Tissue Source: Bone marrow biopsy and aspiration Clinical Info: Anemia Specimen Number: [id number] CPT code: 85574, 50783 x14 METHOD OLOGY: Deparaffinized sections of prefer/formalin-fixed [...] positive CD79a (11E3) positive CD138 (B-A38) negative [place] (polyclonal) negative Lambda (polyclonal) negative CD10 (56C6) negative CD23 (1B12) negative BCL-2 (bcl-2/100/D5) negative BCL-6 (EP048B/A8) negative [place] D1/BCL-1 (SP4) negative Ki-67 (30-9) negative These tests were developed and their performance characteristics determined by [facility]. They may not have been cleare d or approved by the U.S. Food and Drug Administration. The FDA has determined that such clearance or approval is not necessary. INTERPRETATION: A. Bone marrow core: Polytypic (benign) lymphoid aggregate. Case has been reviewed in consultation with Dr. Smith who concurs with the abovediagnosis. IDC:TIFFANIE AM:manas 11/28/15 PHYSICIAN AND INSTITUTION [facility] [address] [place], [place] [address] Signed Kurtis Stevens 11/28/15 <signature on file> 77-Wni-686585:37 Basic Metabolic Profile (BMP) Comments: [facility] [address] [place], [phone] GAP 6 (Normal) Range: 5-15 CO2 36.0 [...] 7-18 GLU 90 mg/dL (Normal) Range: 70-110 46-Eub-196942:36 CBC W/Diff, Auto - EPLAB Comments: At [facility] Outpatient [facility] Medical Oncologypatients receive CBC w/auto Differential ONLY. Physicianwill place an order for a manual differential or Pathologistreview at his discretion. [facility] OUTPATIENT [facility]. [address] [place] [address] CARGO SERVICE AGENT: KURTIS STEVENS DO PH:[phone] Fayette Medical Center [address] [place], [phone] Absolute Lymph 0.96 {X10_3/uL} (Normal) Range: 0.83-4.51 [...] 4.4-11.0 :25 Basic Metabolic Profile (BMP) Comments: [facility] [address]ppfbx[address] [place], [place], [address] GAP 2 (Abnormal) Range: 5-15 CO2 38.0 [...] 7-18 GLU 102 mg/dL (Normal) Range: 70-110 06-Tfi-769114:15 Comments: Non-[facility] - refer to report for specific site [id number] TRANSFUSED PRODUCT: T AND S with Crossmatch, Red Cells COUNT: 2 (Normal) 49-Zhz-543188:15 Type AND Screen Comments: CMV NEG?* NGive When? When ReadyIrradiated? YLeukodepleted? YReason for Type AND Screen/Red Cells: [facility] [address]uyllx[address] [place], [address] Antibody Screen NEGATIVE (Normal) BLOOD TYPE GEL A POSITIVE (Normal) 05-Ala-208091:15 Type AND Screen Comments: CMV NEG?* NGive When? When ReadyIrradiated? YLeukodepleted? YReason for Type AND Screen/Red Cells: [facility] [address] [place], [place], [address] ; Managed by Devon Jenkins Antibody Screen NEGATIVE (Normal) BLOOD TYPE GEL A POSITIVE (Normal) 29-Kmd-770945:03 CBC W/Diff, Auto - EPLAB Comments: At [facility] Outpatient [facility] Medical Oncologypatients receive CBC w/auto Differential ONLY. Physicianwill place an order for a manual differential or Pathologistreview at his discretion. [facility] OUTPATIENT [facility]. [address] [place] [address] [place] [address] CARGO SERVICE AGENT: KURTIS STEVENS DO PH:[phone] Health Miamisburg [address]avqrv[address] [place], [address] Absolute Lymph 0.65 {X10_3/uL} (Abnormal) [...] 4.2-5.4 WBC 9.6 K/mm3 (Normal) Range: 4.4-11.0 94-Dap-289180:05 Comprehensive Metabolic Profil Comments: Serial Specimen #1, #2 or #3? 1[facility] Arvbnqckmj1151 Mitzi [place], [place], [address] GAP 5 (Normal) Range: 5-15 CO2 40.0 [...] Serial Specimen #1, #2 or #3? [address] [place] [address] Jdhrzapmpc8757 [address] Watson. [place], [place], [address] Range: 84-246 :05 Uric Acid Comments: Serial Specimen #1, #2 or #3? [address] [place] [address] Njwuslxlmw2265 [address]. [place], [place], [address] URIC 4.1 mg/dL (Normal) Range: 2.6-6.0 Comments: The drugs N-Acetylcysteine and Metamizole may falsely deressthis assay. :04 CBC W/Diff, Auto - EPLAB Comments: At [facility] Medical Oncologypatients receive CBC w/auto Differential ONLY. Physicianwill place an order for a manual differential or Pathologistreview at his discretion. [facility] OUTPATIENT [facility]. [address] [place] [address] [address] CARGO SERVICE AGENT: KURTIS STEVENS DO PH:[phone] Health [facility]burg Vngnhjseol2273 [address]. [place], [place], [address] Absolute Lymph 0.78 {X10_3/uL} (Abnormal) Range: 0.83-4.51 [...] 4.2-5.4 WBC 9.6 K/mm3 (Normal) Range: 4.4-11.0 5-For-500395:31 CBC W/Diff, Automated Comments: [facility] Jklrbingid5169 [address] Amayaodilia. [place], [place], [address] OVALOCYTE 1+ (Normal) HYPOCHROMASIA 1+ (Normal) ANISO [...] K/mm3 (Normal) Range: 4.4-11.0 :35 RC Comments: Non-[facility] Laboratory - refer to report for specific site [id number] TRANSFUSED PRODUCT: T AND S with Crossmatch, Red Cells COUNT: 2 (Normal) :35 Type AND Screen Comments: CMV NEG?* NGive When? [id number]? YLeukodepleted? YReason for Type AND Screen/Red Cells: [facility] [address]occx[address] [place] [address], [id number] Antibody Screen NEGATIVE (Normal) BLOOD TYPE GEL A POSITIVE (Normal) 96-Iul-924068:41 Bilirubin, Direct Comments: Serial Specimen #1, #2 or #3? 1[facility] Z[address] [place] [address], [id number] D BILI 0.13 mg/dL (Normal) Range: 0.00-0.30 :41 CBC W/Diff, Automated Comments: PERIPHERAL BLOOD FLOW CYTOMETRYKettering Health Miamisburg Vndznnwase[address] [place] [address], [address] MICROCYTES 1+ (Normal) HYPOCHROMASIA 2+ (Normal) [...] 4.2-5.4 WBC 7.0 K/mm3 (Normal) Range: 4.4-11.0 98-Fio-343370:41 Comprehensive Metabolic Profil Comments: Serial Specimen #1, #2 or #3? 1[facility] Qerouthqsu8364 [place], [address] GAP 3 (Abnormal) Range: 5-15 CO2 39.0 [...] 7-18 GLU 92 mg/dL (Normal) Range: 70-110 07-Wjt-654292:41 Direct Antiglobulin Liam BRIAN Comments: [facility] Oglywdfxaj3547 [facility] [place], [address] DIRECT LIAM= NEG w/POLYSPECIFIC (Normal) 16-Nkk-986809:41 Erythropoietin Comments: Is Patient Fasting? [facility] (refer to report for specific site)refer to report for address and phone number ERYTHROP [id number] 97.7 m[iU]/mL (Abnormal) Range: 2.6-18.5 53-Pxr-906604:41 Ferritin Comments: Serial Specimen #1, #2 or #3? [facility] Qfpnpunrcd7675 [facility] [place], [address] FERRITIN 13 ng/mL (Normal) Range: 8-252 70-Bcz-078883:41 Haptoglobin Comments: Is Patient Fasting? [facility] (refer to report for specific site)refer to report for address and phone number HAPTOGLOB 1628 209 mg/dL (Abnormal) Range: 34-200 Comments: Performed at: [facility] Lab[address] [id number] Director: Elías Ludwig PhD, Phone: [phone] 89-Cig-615264:41 JEY + Protein Elect, Serum Comments: Is Patient Fasting? [facility] (refer to report for specific site)refer to report for address and phone number NOTE: Comment (Normal) Comments: Protein electrophoresis scan will follow via computer,mail, or security escort delivery. JEY RESULT,S Comment (Normal) Comments: No monoclonality detected. A/G RATIO 1.2 (Normal) Range: 0.7-1.7 GLOBULIN, TOTAL 2.9 g/dL (Normal) Range: 2.2-3.9 M-SPIKE (Normal) Comments: Not Observed GAMMA GLOBULIN 0.9 g/dL (Normal) Range: 0.4-1.8 BETA GLOBULIN 1.0 g/dL (Normal) Range: 0.7-1.3 KMXGC-5-TYTU 0.8 g/dL (Normal) Range: 0.4-1.0 CGPKL-6-HQHJ 0.3 g/dL (Normal) Range: 0.0-0.4 ALBUMIN 3.3 g/dL (Normal) Range: 2.9-4.4 IMMUNOGL M 165 mg/dL (Normal) Range: 26-217 IMMUNO A 84 mg/dL (Normal) Range: 64-422 IMMUNO G 729 mg/dL (Normal) Range: 700-1600 PROTEIN,TOTAL 6.2 g/dL (Normal) Range: 6.0-8.5 :41 Iron+Iron Binding Capacity Comments: Serial Specimen #1, #2 or #3? 1[facility] Zzcqsvndhi6939 [place], [address] IRON SATURATION 4.7 % (Abnormal) Range: 15.0-55.0 IRON 25 ug/dL (Abnormal) Range: 50-170 TIBC 531 ug/dL (Abnormal) Range: 250-450 :41 [place] Lambda Lt Chn Ser. Mon. Comments: Is [...] Comments: Serial Specimen #1, #2 or #3? 1[facility] Grnyesgmyp6903 [place], [address] Range: 84-246 :41 Partial Thromboplast Time Comments: [facility] [address]kw[address] [place], [place], [address] PTT 36.4 s (Abnormal) Range: 24.1-36.2 :41 Prothrombin Time w/INR Comments: [facility] [address] [place], [place], [address] INR 1.1 (Normal) PROTIME 13.4 s (Normal) Range: 11.7-14.9 :41 Retic Panel Comments: PERIPHERAL BLOOD FLOW CYTOMETRYW05 [address] Streetmarily[address] Amayae. [place], [place], [address] IPF 1.3 % (Normal) Range: 1.0-7.9 Comments: [...] Comments: Serial Specimen #1, #2 or #3? [facility] Rtlduhjzas6546 [address]. [place], [id number] URIC 3.7 mg/dL (Normal) Range: 2.6-6.0 Comments: The drugs N-Acetylcysteine and Metamizole may falsely deressthis assay. :41 Vitamin B12 453 pg/mL (Normal) Comments: [facility] [address] [place], [address] Range: 211-911 :52 Fecal Occult Blood , Office (62371) Fecal Occult Blood , Office (Inhouse) positive (Normal) :17 CBC WITH MANUAL DIFF Comments: STANDING ORDER; PATIENT NOT FASTINGPERFORMED BY: NERIS [facility] Uhxkmy4394 [address] [place] [id number] Information: [id number] (09393) Hematology Comments: Note: (Normal) Comments: Verified by [...] RBC 3.84 {x10E6/uL} (Normal) Range: 3.77-5.28 Comments: Roulemonica.Polychromasia present WBC 7.4 {x10E3/uL} (Normal) Range: 3.4-10.8 :56 CBC W/Diff, Automated Comments: [facility] Zyqaycwtlq9819 [address] Garn[address] [place], [place], [address] SMEAR COMMENT COMMENT (Normal) Comments: SLIDE SCANNED [...] WBC Comments: PATIENT NOT FASTINGPERFORMED BY: [facility] Deexgg6071 [facility] [id number] Information: [id number] (43674) Hematology Comments: Note: (Normal) Comments: Verified by [...] Range: 3.4-10.8 :11 CBC W/Diff, Automated Comments: [facility] Iwbrfprirn9671 Mitzi [facility] [place], [address] MICROCYTES 1+ (Normal) HYPOCHROMASIA 2+ [...] Range: 4.4-11.0 :45 HH, Hemoglobin AND Comments: [facility] Bmawejqnvk5760 [facility] [place], [place], [address] Hematocrit HCT 31.8 % (Abnormal) Range: 37-47 HGB 9.4 g/dL (Abnormal) Range: 12.0-15.0 :53 RC Comments: Non-[facility] - refer to report for specific site [id number] TRANSFUSED PRODUCT: T AND S with Crossmatch, Red Cells COUNT: 2 (Normal) :53 Type AND Screen Comments: CMV NEG?* NGive When? 09/20/15 9AMIrradiated? NLeukodepleted? YReason for Type AND Screen/Red Cells: [facility] Rbvxszyilk4918 [place], [address] Antibody Screen NEGATIVE (Normal) BLOOD TYPE GEL A POSITIVE (Normal) 49-Kui-004220:53 Type AND Screen Comments: CMV NEG?* NGive When? 09/20/15 9AMIrradiated? NLeukodepleted? YReason for Type AND Screen/Red Cells: [facility] Wqkanmajrk0708 [place], [address] Antibody Screen NEGATIVE (Normal) BLOOD TYPE GEL A POSITIVE (Normal) 98-Zcg-770245:51 CBC W/Diff, Automated Comments: [facility] Vzaptddmwa4385 [place], [address] MICROCYTES 1+ (Normal) HYPOCHROMASIA 2+ [...] 4.2-5.4 WBC 7.6 K/mm3 (Normal) Range: 4.4-11.0 12-Dvn-904770:30 CBC W/Diff, Automated Comments: [facility] Azguaotdcp4136 [address] Amay[address]. [place], [place], [address] SMEAR COMMENT (Normal) Comments: 1+ ANISOCYTOSIS Absolute [...] 4.2-5.4 WBC 8.1 K/mm3 (Normal) Range: 4.4-11.0 05-Zvc-517490:00 CBC W/Diff, Automated Comments: [facility] Gilsigusop[address] [place], [address] MICROCYTES 2+ (Normal) HYPOCHROMASIA 3+ (Normal) ANISO [...] 4.2-5.4 WBC 8.6 K/mm3 (Normal) Range: 4.4-11.0 50-Nbg-279617:10 CBC W/Diff, Automated Comments: [facility] Pxxuypaeaa8766 [place], [address] SMEAR COMMENT COMMENT (Normal) Comments: SLIDE SCANNED [...] 4.2-5.4 WBC 8.2 K/mm3 (Normal) Range: 4.4-11.0 34-Kfn-119560:45 CBC W/Diff, Automated Comments: [facility] Hpcxodlmsa3298 [address] Walter. [place], [place], [address] OVALOCYTE RARE (Normal) HYPOCHROMASIA 1+ (Normal) ANISO [...] 4.2-5.4 WBC 9.1 K/mm3 (Normal) Range: 4.4-11.0 4-Qdo-142527:30 CBC W/Diff, Automated Comments: [facility] Cgsugkaekz6776 [address]. [place], [place], [address] SMEAR COMMENT SCANNED (Normal) Comments: 2+ ANISOCYTOSIS, [...] Range: 4.4-11.0 :44 CBC W/Diff, Automated Comments: [facility] Tjajdanmre5899 [address] [place], [place], [address] SMEAR COMMENT COMMENT (Normal) Comments: SLIDE SCANNED [...] 4.2-5.4 WBC 8.2 K/mm3 (Normal) Range: 4.4-11.0 :20 HH, Hemoglobin AND Hematocrit Comments: [facility] Qvfowsskjs[address] [place], [place], [address] HCT 30.8 % (Abnormal) Range: 37-47 HGB 8.8 g/dL (Abnormal) Range: 12.0-15.0 56-Vbf-265860:30 Prothrombin Time w/INR Comments: [facility] [address]vuv[address]ha[address] [place], [place], [address] INR 1.0 (Normal) PROTIME 13.0 s (Normal) Range: 11.7-14.9 65-Iey-058646:48 Basic Metabolic Profile (BMP) Comments: [facility] Xvglorwwei4949 [facility] [address] [place], [place], [address] GAP 3 (Abnormal) Range: 5-15 CO2 41.0 [...] Range: 70-110 :48 BNP,B-Type NATRIURETIC PEPTIDE Comments: [facility] Etdmrtnvof0733 [address] Amayaodilia. [place], [place], [address] B-TYPE CORBIN PEP 458.2 pg/mL (Abnormal) Range: 0-100 :48 CBC W/Diff, Automated Comments: [facility] Kyupbzjakq3373 [address] Amayaodilia. [place], [place], [address] Absolute Lymph 0.66 {X10_3/ul} (Abnormal) Range: 0.83-4.51 [...] Range: 4.4-11.0 :39 CBC W/Diff, Automated Comments: [facility] Fzkrdgcjbx1815 [address] Amayaodilia. [place], [place], [address] Absolute Lymph 0.93 {X10_3/ul} (Normal) Range: 0.83-4.51 [...] 4.2-5.4 WBC 9.9 K/mm3 (Normal) Range: 4.4-11.0 3-Ype-957621:00 Basic Metabolic Profile (BMP) Comments: Serial Specimen #1, #2 or #3? 1'TROP' Serial specimen #1, #2, #3, or #4: [facility] Ztgvdeqqzw6594 [address] Watson. [place], [place], [address] GAP 5 (Normal) Range: 5-15 CO2 39.0 [...] 126 mg/dLsuggests DIABETES MELLITUS per A.D.A. criteria. 0-Sja-746797:00 CBC W/Diff, Automated Comments: [facility] Uouyutqfcj6598 [place], [address] SCHISTOCYTES 1+ (Normal) OVALOCYTE RARE (Normal) HYPOCHROMASIA [...] 4.2-5.4 WBC 9.3 K/mm3 (Normal) Range: 4.4-11.0 6-Buf-892176:00 CK-MB Quantitative and Index Comments: Serial Specimen #1, #2 or #3? 1'TROP' Serial specimen #1, #2, #3, or #4: [address] [place] [address] Dtcbfqwuqm7183 [place], [address] CKRI 2.1 % (Abnormal) Range: 0.0-1.4 Comments: RELATIVE INDEX >1.5% IS PRESUMPTIVELY POSITIVE CPKMB 2.1 ng/mL (Normal) Range: 0.0-5.0 Comments: CK-MB and RI Interpretation MB Relative Index Non-AMI <or= 5 NA Indeterminate > 5 <or= 4 AMI > 5 > 4 CPK TOTAL 100 U/L (Normal) Range: 26-192 3-Ccn-691714:00 Troponin-I Comments: Serial Specimen #1, #2 or #3? 1'TROP' Serial specimen #1, #2, #3, or #4: [address] [place] [address] Fovfgclvpm9598 [place], [address] TROPONIN-I < 0.02 ng/mL (Normal) Comments: TROPONIN-I EXPECTED VALUES <0.05 NEGATIVE 0.06 - 0.59 AT RISK OF SD > OR = 0.60 SUGGEST SD 9-Uty-911404:50 Methymalonic Acid, Serum Comments: PATIENT NOT FASTINGPERFORMED BY: [facility] [facility] [id number] BY: [facility] [id number] (84259) Methylmalonic Acid, Serum 278 nmol/L (Normal) Range: 0-378 5-Cmr-901983:50 VITAMIN B-12 (CYANOCOBALAMIN) Comments: PATIENT NOT FASTINGPERFORMED BY: [facility] CenterSskdco8694 [facility] [id number] BY: [address] [id number] (03793) Vitamin B12 692 pg/mL (Normal) Range: 211-946 8-Zcp-797294:50 IRON BINDING CAPACITY Comments: PATIENT NOT FASTINGPERFORMED BY: [place] 5367270 [facility] [id number] BY: [address] [id number] (TIBC) (97179) Iron Saturation 22 % (Normal) Range: 15-55 Iron, Serum 92 ug/dL (Normal) Range: 35-155 UIBC 320 ug/dL (Normal) Range: 150-375 Iron Bind.Cap.(TIBC) 412 ug/dL (Normal) Range: 250-450 9-Qyl-315598:50 FERRITIN (30915) Comments: PATIENT NOT FASTINGPERFORMED BY: [facility] 5367270 [facility] [id number] BY: [address] [id number] Ferritin, Serum 72 ng/mL (Normal) Range: 15-150 6-Mmk-490499:50 CBC, PLATELETS & AUT DIFF Comments: PATIENT NOT FASTINGPERFORMED BY: [facility] CenterIxenqh7279 [facility] [id number] BY: [address] [id number] Information: [id number] (23582) Immature Grans (Abs) 0.0 {x10E3/uL} (Normal) Range: [...] 3.77-5.28 WBC 9.0 {x10E3/uL} (Normal) Range: 3.4-10.8 51-Klg-189793:06 Iron Binding Capacity Comments: PATIENT WAS FASTINGPERFORMED BY: [facility] [address] [id number] BY: [facility] [address] [id number] Information: [id number] (TIBC) (75974) Iron Saturation 4 % (Abnormal) Range: 15-55 Iron, Serum 17 ug/dL (Abnormal) Range: 35-155 UIBC 419 ug/dL (Abnormal) Range: 150-375 Iron Bind.Cap.(TIBC) 436 ug/dL (Normal) Range: 250-450 68-Usy-804511:06 RETICULOCYTE COUNT (25214) Comments: PATIENT WAS FASTINGPERFORMED BY: [facility] Kbjzrp6821 [address] [facility] [place] [id number] BY: [address] [id number] Reticulocyte Count 1.2 % (Normal) Range: 0.6-2.6 50-Guw-950733:06 LDH (LD) (LACTATE Comments: PATIENT WAS FASTINGPERFORMED BY: [facility] Yhsdkk8866 [address] [facility] [place] [id number] BY: [address] [id number] DEHYDROGENASE) (13614) LDH 284 [iU]/L (Abnormal) Range: 119-226 51-Jpz-431403:06 Vitamin B-12 Comments: PATIENT WAS FASTINGPERFORMED BY: [facility] Ndebvj4899 [place] RoadAt[facility] [id number] BY: [address] [id number] (cyanocobalamin) (18628) Vitamin B12 452 pg/mL (Normal) Range: 211-946 76-Dix-727871:06 Ferritin (28538) Comments: PATIENT WAS FASTINGPERFORMED BY: [facility] Quhtna1132 [place] [facility] Centerin [place] [id number] BY: [address] [id number] Ferritin, Serum 15 ng/mL (Normal) Range: 15-150 06-Rpa-043168:06 Folic Acid Serum (74795) Comments: PATIENT WAS FASTINGPERFORMED BY: [facility] Msstof2770 [address] Roadblin [place] [id number] BY: [address] [id number] Folate (Folic Acid), Serum 16.7 ng/mL (Normal) Comments: A serum folate concentration of less than 3.1 ng/mL isconsidered to represent clinical deficiency. 23-Ira-989102:06 Methymalonic Acid, Serum Comments: PATIENT WAS FASTINGPERFORMED BY: [facility] Utkhkm4010 [facility] [id number] BY: Lab[address] [id number] (47301) Methylmalonic Acid, Serum 321 nmol/L (Normal) Range: 0-378 55-Ofd-391971:22 TSH (64906) Comments: PATIENT NOT FASTINGPERFORMED BY: [facility]Co[facility] CenterTlokui0822 [facility] [id number] TSH 1.540 {uIU/mL} (Normal) Range: 0.450-4.500 37-Uaa-155921:22 METABOLIC PANEL, COMPREHENSIVE Comments: PATIENT NOT FASTINGPERFORMED BY: LabJohn [place] 6202370 [facility] [id number] (33082) ALT (SGPT) 13 [iU]/L (Normal) Range: 0-32 [...] Glucose, Serum 99 mg/dL (Normal) Range: 65-99 42-Tbj-790145:22 CBC W/AUTO DIFF WBC Comments: PATIENT NOT FASTINGPERFORMED BY: [facility] Baexfu3889 [place] [place] [id number] Information: [id number] DL (12486) Immature Grans (Abs) 0.0 {x10E3/uL} (Normal) Range: [...] 3.77-5.28 WBC 8.4 {x10E3/uL} (Normal) Range: 3.4-10.8 22-Cml-763969:22 Lipid Profile Comments: Test performed at:[facility] Bnnmlfnfqj7030 [place] [address] VLDL 17 mg/dL (Normal) Range: 5-40 LDL [...] 200-240 mg/dL Borderline >240 mg/dL High Risk 13-Srl-097653:22 Liver Profile Comments: Test performed at:[facility] Tqggfhuvqo7855 [facility] [place] [address] D BILI 0.09 mg/dL (Normal) Range: 0.00-0.30 T BILI 0.30 mg/dL (Normal) Range: 0.20-1.00 ALT 30 U/L (Normal) Range: 12-78 ALK P 96 U/L (Normal) Range: 50-136 AST 29 U/L (Normal) Range: 15-37 GLOB 3.3 g/dL (Normal) Range: 2.3-3.5 ALB 3.5 g/dL (Normal) Range: 3.4-5.0 T PROT 6.8 g/dL (Normal) Range: 6.4-8.2 9-Ljs-522328:58 Miscellaneous Lab Procedure Comments: RUN LOWEST TESTComments: [id number] URINE TOXICOLOGYTest(s) Ordered: [id number] URINE TOXICOLOGYTest performed at:[facility] Cxzwxgbbqp20[address] [place], [place] [address] [facility] Comments: [id number] 6+OXYCODONE-BUND (ng/mL)DRUG RESULT SCREEN CUTOFF____ Amphetamines,Urine Negat LAB (Normal) terri ng/mL 1000Amphetamine test includes Amphetamine and Methamphetamine.Barbiturates Negative ng/mL 200Benzodiazepines Negative ng/mL 200Cannabinoid TEST Negative ng/mL 20Cocaine (Metab) Negative ng/mL 300Opiates Negative ng/mL 300 Opiates test includes Codeine, Morphine, Hydromorphone, [place] codone.Oxycodone/Oxymorphone,Urine Positive ng/mL 300 Test includes Oxydodone and Oxymorphone.Oxycodone Positive Oxycodone (GC/MS) 942 ng/mL 300Oxymorphone Positive Oxymorphone (GC/MS) 1150 ng/mL 300 TESTING PERFORMED AT [facility]. ORIGINAL REPORT ON FILE IN LAB [facility] ADDITIONAL TEST SITE INFORMATION. 2-Omj-412587:58 Urine Drug Screen (VISTA) Comments: Comments: [id number] URINE TOXICOLOGYList of Drugs Taken or Suspected? UNKNOWNTest performed at:[facility] Rpboqzewsf3331 [facility] [place] [address]. [place], [place] [address] THC NEGATIVE (Normal) PCP NEGATIVE (Normal) OPIATES [...] TESTING MUST BE ORDERED SEPARATELY. USE TESTMNEMONIC: [facility] 53-Drb-675571:19 Anti-dsDNA Ab Comments: Test performed at:[facility] Wiybagfazj3281 [place] [address] dsDNA AB 4 {IU/mL} (Normal) Range: 0-9 Comments: Negative <5 Equivocal 5 - 9 Positive >9Performed at: - [facility] [address] [id number] D irector: Johnathan Junior PhD, Phone: [phone] 37-Zaz-814940:19 CBC W/Diff, Automated Comments: Test performed at:[facility] Echjyyivpn7559 [place] [address] Absolute Lymph 0.78 {X10_3/ul} (Abnormal) [...] 4.2-5.4 WBC 9.5 K/mm3 (Normal) Range: 4.4-11.0 07-Nqp-448164:19 Complement C3 Comments: Test performed at:[facility] Voxljndotr4274 [place] [address] COMP C3 135 (Normal) Range: 90-180 Comments: Result Units: mg/dL AdultPerformed at: - [facility] Igeppx0582 [place], [place] [id number] Director: Johnathan Junior PhD, Phone: [phone] 96-Cci-618927:19 Complement C4 Comments: Test performed at:[facility] Qqdoshydgs2765 [facility] [place] [address] COMP C4 27 (Normal) Range: 9-36 Comments: Result Units: mg/dL Adult :19 Comprehensive Metabolic Profil Comments: Test performed at:[facility] Clhcgdgzzq7[address] [place], [place] [address] GAP 8 (Normal) Range: 5-15 CO2 31.0 [...] 7-18 GLU 92 mg/dL (Normal) Range: 70-110 51-Zcs-255127:19 Protein+Creatinine Ratio,Urine Comments: Test performed at:[facility] Jhtcpiblah6015 [address] [place], [place] [address] PROT:CRE RATIO 334 {mg/g_CRE} (Abnormal) Range: 0-200 PROTEIN,UR.RAN. 32.8 mg/dL (Abnormal) UR CREAT 98.0 mg/dL (Normal) 21-Qaw-021307:19 Urinalysis, Complete Comments: How was Urine Obtained? CLEAN CATCHTest performed at:[facility] [address]kekm[address] [place], [place] [address] HYALINE CAST 5-10 SEEN {/lpf} (Normal) Range: [...] CLARITY Sl. Cloudy (Normal) COLOR Yellow (Normal) 20-Zse-914012:41 CBC With Differential/Platelet Comments: PATIENT NOT FASTINGPERFORMED BY: [facility] Oxufik7884 [facility] [id number] Information: [id number] Immature Grans (Abs) 0.0 {x10E3/uL} (Normal) Range: [...] 3.77-5.28 WBC 8.9 {x10E3/uL} (Normal) Range: 3.4-10.8 66-Uvs-360254:43 Basic Metabolic Profile (BMP) Comments: Test performed at:[facility] Vtylzukxmq8858 [place] [address] GAP 3 (Abnormal) Range: 5-15 CO2 33.0 [...] :43 CBC W/Diff, Automated Comments: Test performed at:[facility] Osggnfdrxz8802 [facility] [place] [address] Absolute Lymph 0.85 {X10_3/ul} (Normal) [...] 4.2-5.4 WBC 7.5 K/mm3 (Normal) Range: 4.4-11.0 78-Zau-54814:40 Basic Metabolic Profile (BMP) Comments: Serial Specimen #1, #2 or #3? 1'TROP' Serial specimen #1, #2, #3, or #4: 1Test performed at:[facility] Fgrbdhrhax2751 [facility] [place] [address]. [place], [place] [address] GAP 5 (Normal) Range: 5-15 CO2 38.0 [...] :40 CBC W/Diff, Automated Comments: Test performed at:[facility] Srhiopeqyw2149 [address] WatsonNing [place], [place] [address] Absolute Lymph 1.10 {X10_3/ul} (Normal) Range: 0.83-4.51 [...] #1, #2, #3, or #4: 1Test performed at:[facility] [address]srur[address] [place] [address] CPKMB 1.4 ng/mL (Normal) Range: 0.0-5.0 Comments: CK-MB and RI Interpretation MB Relative Index Non-AMI <or= 5 NA Indeterminate > 5 <or= 4 AMI > 5 > 4 CPK TOTAL 133 U/L (Normal) Range: 26-192 :40 Troponin-I Comments: Serial Specimen #1, #2 or #3? 1'TROP' Serial specimen #1, #2, #3, or #4: 1Test performed at:[facility] [id number] [place] [address] TROPONIN-I < 0.02 ng/mL (Normal) Comments: TROPONIN-I EXPECTED VALUES <0.05 NEGATIVE 0.06 - 0.59 AT RISK OF SD > OR = 0.60 SUGGEST SD :30 Basic Metabolic Profile (BMP) Comments: Test performed at:[facility] [id number] [place] [address] GAP 6 (Normal) Range: 5-15 [...] :30 CBC W/Diff, Automated Comments: Test performed at:[facility] [id number] [facility] [place] [address] [place], [place] [id number] Absolute Lymph 0.79 {X10_3/ul} (Abnormal) Range: 0.83-4.51 [...] 4.2-5.4 WBC 10.2 K/mm3 (Normal) Range: 4.4-11.0 [id number] Lipid Profile Comments: Test performed at:[facility] [id number] [place] [address] VLDL 16 mg/dL (Normal) Range: [...] 200-240 mg/dL Borderline >240 mg/dL High Risk [id number] Liver Profile Comments: Test performed at:[facility] [id number] [place] [address] D BILI 0.09 mg/dL (Normal) Range: 0.00-0.30 T BILI 0.30 mg/dL (Normal) Range: 0.00-4.00 ALT 29 U/L (Normal) Range: 12-78 ALK P 116 U/L (Normal) Range: 50-136 AST 29 U/L (Normal) Range: 15-37 GLOB 3.6 g/dL (Normal) Range: 2.7-4.2 ALB 3.3 g/dL (Abnormal) Range: 3.4-5.0 T PROT 6.9 g/dL (Normal) Range: 6.4-8.2 [id number] IRON BINDING CAPACITY (TIBC) Comments: PATIENT NOT FASTINGPERFORMED BY: [facility] [id number] ([id number]) Iron Saturation 13 % (Abnormal) Range: 15-55 Iron, Serum 51 ug/dL (Normal) Range: 35-155 UIBC 328 ug/dL (Normal) Range: 150-375 Iron Bind.Cap.(TIBC) 379 ug/dL (Normal) Range: 250-450 [id number] FERRITIN ([id number]) Comments: PATIENT NOT FASTINGPERFORMED BY: [facility] [facility] CenterNjbrru[address] [place] [address] [id number] Ferritin, Serum 33 ng/mL (Normal) Range: 15-150 51-Wju-425431:50 CBC W/AUTO DIFF WBC Comments: PATIENT NOT FASTINGPERFORMED BY: TeramindNewark [facility] CenterIrnnhi5[address] [facility] [id number] Information: [id number] (13247) Immature Grans (Abs) 0.0 {x10E3/uL} (Normal) Range: [...] 3.77-5.28 WBC 11.0 {x10E3/uL} (Abnormal) Range: 3.4-10.8 92-Lmq-568276:59 FECAL OCCULT- Tubes sent home (26700) FECAL OCCULT HGB ASSAY, QUAL, 1-3 SIMULTANEOU negative (Normal) 80-Tnp-548163:10 VITAMIN B-12 (CYANOCOBALAMIN) Comments: PATIENT NOT FASTINGPERFORMED BY: NERIS [facility] Cdpatn60[address] [facility] [address] [id number] (77325) Vitamin B12 528 pg/mL (Normal) Range: 211-946 62-Inx-036056:10 RETICULOCYTE COUNT [facility] Comments: PATIENT NOT FASTINGPERFORMED BY: [facility] [id number] (59643) Reticulocyte Count 2.9 % (Abnormal) Range: 0.6-2.6 50-Ckp-082874:10 LDH (LD) (LACTATE DEHYDROGENASE) Comments: PATIENT NOT FASTINGPERFORMED BY: [facility] [id number] ([id number]) LDH 308 [iU]/L (Abnormal) Range: 119-226 42-Vjk-414733:10 IRON BINDING CAPACITY (TIBC) Comments: PATIENT NOT FASTINGPERFORMED BY: [facility] [id number] (74765) Iron Saturation 26 % (Normal) Range: 15-55 Iron, Serum 104 ug/dL (Normal) Range: 35-155 UIBC 298 ug/dL (Normal) Range: 150-375 Iron Bind.Cap.(TIBC) 402 ug/dL (Normal) Range: 250-450 06-Lzg-638307:10 FERRITIN (62474) Comments: PATIENT NOT FASTINGPERFORMED BY: [facility] [id number] Ferritin, Serum 47 ng/mL (Normal) Range: 15-150 92-Bka-302569:10 CBC, PLATELETS & AUT DIFF Comments: PATIENT NOT FASTINGPERFORMED BY: [facility] [id number] Information: [id number] (08349) Immature Grans (Abs) 0.0 {x10E3/uL} (Normal) Range: [...] 3.77-5.28 WBC 7.2 {x10E3/uL} (Normal) Range: 3.4-10.8 66-Zbc-548613:06 CBC-Complete Blood Cnt No Diff Comments: Test performed at:[facility] Orfpdsjtcy[address] [place], [place] [id number] MPV 10.6 fL (Normal) Range: 6.2-12.0 PLT [...] 4.2-5.4 WBC 8.2 K/mm3 (Normal) Range: 4.4-11.0 40-Mwy-402285:25 Basic Metabolic Profile (BMP) Comments: Serial Specimen #1, #2 or #3? 1'TROP' Serial specimen #1, #2, #3, or #4: 1Test performed at:[facility] [address] [place] [address] GAP 3 (Abnormal) Range: 5-15 [...] 126 mg/dLsuggests DIABETES MELLITUS per A.D.A. criteria. 45-Hrp-363769:25 CBC W/Diff, Automated Comments: Test performed at:[facility] [address] [place] [address] Absolute Lymph 1.07 {X10_3/ul} (Normal) [...] 4.2-5.4 WBC 7.0 K/mm3 (Normal) Range: 4.4-11.0 96-Hcb-537488:25 CK-MB Quantitative and Index Comments: Serial Specimen #1, #2 or #3? 1'TROP' Serial specimen #1, #2, #3, or #4: 1Test performed at:[facility] [address] [place], [place] [address] CPKMB 1.8 ng/mL (Normal) Range: 0.0-5.0 Comments: CK-MB and RI Interpretation MB Relative Index Non-AMI <or= 5 NA Indeterminate > 5 <or= 4 AMI > 5 > 4 CPK TOTAL 165 U/L (Normal) Range: 26-192 82-Qvz-266910:25 Troponin-I Comments: Serial Specimen #1, #2 or #3? 1'TROP' Serial specimen #1, #2, #3, or #4: 1Test performed at:[facility] Lljdgyvhsl026[address] [facility] [place] [address] TROPONIN-I < 0.02 ng/mL (Normal) Comments: TROPONIN-I EXPECTED VALUES <0.05 NEGATIVE 0.06 - 0.59 AT RISK OF SD > OR = 0.60 SUGGEST SD :04 BMP GAP 2 (Abnormal) Range: 5-15 CO2 [...] 90-180 Comments: Result Units: mg/dL AdultPerformed at: CB - [facility] [address] [id number] Director: Johnathan Junior PhD, Phone: [phone] :[phone] C4 26 (Normal) Range: 9-36 Comments: [...] - 9Positive >9Performed at: CB - [facility] [address] [id number] Director: Johnathan Junior PhD, Phone: [phone] :[phone] PROCRER tPROCRER 392 {mg/g_CRE} (Abnormal) Range: 0-200 PROUR 10.0 mg/dL (Normal) CREU 25.5 mg/dL (Normal) :00 [facility] Comments: How was Urine Obtained? CLEAN [...] (Normal) :54 CBC, PLATELETS & MANUAL DIFF (56466) Comments: recheck 03-08-14:11 B12 817 pg/mL (Normal) Range: 211-911 02-Ztf-900210:11 CBCD ALC 1.16 {X10_3/ul} (Normal) Range: 0.83-4.51 [...] Please note reference interval changePerformed at: - Lab[address] [id number] Director: Ciaran Valles MD, Phone: [phone] RETIC retIPF 1.5 % (Normal) Range: [...] ABS NEGATIVE (Normal) BT A POSITIVE (Normal) 26-Zoh-855573:25 FECAL OCCULT- Tubes sent home (21456) FECAL OCCULT HGB ASSAY, QUAL, negative (Normal) 1-3 [facility] :08 HCT 29.9 % (Abnormal) Range: [...] 7-18 GLU 88 mg/dL (Normal) Range: 70-110 7-Bco-652153:11 BTNP 235.3 pg/mL (Abnormal) Range: 0-100 :11 [...] CHOL 140 mg/dL (Normal) Comments: <200 mg/dL Urbhgdrai468-340 mg/dL Borderline>240 mg/dL High Risk TRIG 61 [...] 3.4-5.0 TPROT 6.8 g/dL (Normal) Range: 6.4-8.2 2-Akz-610627:19 Metabolic Panel, Basic Comments: PATIENT NOT FASTINGPERFORMED BY: NERIS FunjiNewark [facility] CenterWdpsjr3[address] [id number] Information: [id number] (15263) Calcium, Serum 9.1 mg/dL (Normal) Range: 8.6-10.2 [...] Glucose, Serum 75 mg/dL (Normal) Range: 65-99 25-Mna-350746:39 CBC With Differential/Platelet Comments: PERFORMED BY: NERIS LabCoNewark [facility] CenterRfkyqv47[address] [id number] Information: 08/09@7AM 08/10@7AM Immature Grans (Abs) 0.0 [...] 3.77-5.28 WBC 8.9 {x10E3/uL} (Normal) Range: 4.0-10.5 46-Pvb-473811:39 Comp. Metabolic Panel (14) Comments: PERFORMED BY: LabCoNewark [facility] CenterKchrdc46[address] [id number] ALT (SGPT) 27 [iU]/L (Normal) Range: 0-32 [...] 65-99 :39 Creatinine Clearance Comments: PERFORMED BY: Funji [facility] [address] [id number] Creatinine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 grade Myelodysplastic syndrome, high grade : Reviewed Car Seat Maker Letter Indication: Myelodysplastic syndrome, high grade COPD, [...] Indication: COPD, moderate COPD, moderate : Reviewed Car Seat Maker Letter- see Dr Castillo Indication: COPD, moderate CAD in [place] artery : Follow up in 6 months Indication: CAD in [place] artery Hypertension with heart disease : HTN/CAD Red Flags Indication: Hypertension with heart disease COPD, moderate : Continue Current Prescription(s) Indication: COPD, moderate CAD in [place] artery : Continue Current Prescription(s) Indication: CAD in [place] artery CAD in [place] artery : Reviewed Car Seat Maker Letter Indication: CAD in [place] artery Hypercholesteremia : Cholesterol mgmt Indication: Hypercholesteremia Myelodysplastic syndrome, high grade : Reviewed Car Seat Maker Letter Indication: Myelodysplastic syndrome, high grade Annual [...] moderate Myelodysplastic syndrome, high grade : Reviewed Car Seat Maker Letter- dr Donahue Indication: Myelodysplastic syndrome, high [...] unspecified bone marrow failure type : Reviewed Car Seat Maker Letter 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 Indication: Raynaud's phenomenon (secondary) Hypertension, renal disease : HTN/CAD Red Flags Indication: Hypertension, renal disease CAD in [place] artery : Continue Current Prescription(s) Indication: CAD in [place] artery CAD in [place] artery : Reviewed Car Seat Maker Letter Indication: CAD in [place] artery Hypertension, renal disease : Continue Current Prescription(s) Indication: Hypertension, renal disease COPD, moderate : Reviewed Car Seat Maker Letter Indication: COPD, moderate COPD, moderate : Continue Current Prescription(s) Indication: COPD, moderate Hypercholesteremia : Eprescribed prescriptions (G8553) Indication: Hypercholesteremia Epistaxis : Follow up in 3 weeks-4 gen med with chapis Indication: Epistaxis Epistaxis : Reviewed Lab Indication: Epistaxis Epistaxis : Reviewed Car Seat Maker Letter Indication: Epistaxis Pelvis fracture, right : Reviewed Car Seat Maker Letter Indication: Pelvis fracture, right Strain of [...] Prescription(s) Indication: COPD, moderate Lupus : Reviewed Car Seat Maker Letter Indication: Lupus Hypertension, renal disease : HTN/CAD Red Flags Indication: Hypertension, renal disease Hypercholesteremia : Cholesterol mgmt Indication: Hypercholesteremia Hypertension, renal disease : Eprescribed prescriptions (G8553) Indication: Hypertension, renal disease COPD, moderate : Follow up in 2- 3 weeks for medicare physciak Indication: COPD, moderate COPD, moderate : Follow up in 4 months Indication: COPD, moderate ERYTHEMATOSUS, LUPUS : Reviewed Lab Indication: ERYTHEMATOSUS, LUPUS ERYTHEMATOSUS, LUPUS : Reviewed Car Seat Maker Letter Indication: ERYTHEMATOSUS, LUPUS Hypertension, renal disease [...] LUMBAR INTERVERTEBRAL DISC WITHOUT MYELOPATHY : Reviewed Car Seat Maker Letter 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 Hypercholesteremia : Follow up in 3 months gen med Indication: Hypercholesteremia Chronic kidney disease (CKD), stage 2 (mild) : Eprescribed prescriptions (G8553) Indication: Chronic kidney disease (CKD), 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), stage 2 (mild) : consultation letter Indication: Chronic kidney disease (CKD), stage 2 (mild) COPD, moderate : Reviewed Car Seat Maker Letter Indication: COPD, moderate Hypertension, renal disease : Continue Current Prescription(s) Indication: Hypertension, renal disease Hypertension, renal disease : HTN/CAD Red Flags Indication: Hypertension, renal disease Hypercholesteremia : Cholesterol mgmt Indication: Hypercholesteremia Anemia, unspecified : Reviewed Lab Indication: Anemia, unspecified Anemia, unspecified : Reviewed Diagnostic Tests Indication: Anemia, unspecified Anemia, unspecified : Reviewed Car Seat Maker Letter Indication: Anemia, unspecified COPD, moderate : Reviewed Car Seat Maker Letter: dr ascencio Indication: COPD, moderate COPD, [...] Indication: Anemia, unspecified Anemia, unspecified : Reviewed Car Seat Maker Letter Indication: Anemia, unspecified Anemia, unspecified : Anemia: diagnosis and treatment Indication: Anemia, unspecified Mitral valve failure : Reviewed Car Seat Maker Letter Indication: Mitral valve failure Encounter for [...] Artery Disease Coronary Artery Disease : Reviewed Car Seat Maker Letter Indication: Coronary Artery Disease COPD, moderate : Continue Current Prescription(s) Indication: COPD, moderate Hypercholesteremia : Reviewed Lab Indication: Hypercholesteremia Chronic kidney disease (CKD), stage 2 (mild) : Reviewed Car Seat Maker Letter Indication: Chronic kidney disease (CKD), stage 2 (mild) Hypertension, renal disease : Follow up in 3 months Indication: Hypertension, renal disease Hypertension, renal disease : Continue Current Prescription(s) Indication: Hypertension, renal disease ERYTHEMATOSUS, LUPUS : Reviewed Car Seat Maker Letter Indication: ERYTHEMATOSUS, LUPUS Hypertension, renal disease [...] cyst (Renamed from Kidney cysts) : Reviewed Car Seat Maker Letter Indication: Renal cyst (Renamed from Kidney cysts) Hypertension, renal disease : Allergies: allergen Indication: Hypertension, renal disease Hypertension, renal disease : Follow up in 2-3 weeks Indication: Hypertension, renal disease Hypertension, renal disease : Reviewed Lab Indication: Hypertension, renal disease Hypertension, renal disease : High Blood Pressure (Essential Hypertension) *: blood pressure problems Indication: Hypertension, renal disease Hypertension, renal disease : Reviewed Car Seat Maker Letter Indication: Hypertension, renal disease Hypertension, renal [...] Tests Indication: Osteopenia ERYTHEMATOSUS, LUPUS : Reviewed Car Seat Maker Letter Indication: ERYTHEMATOSUS, LUPUS Hypertension, renal disease [...] Hypertension, renal disease ERYTHEMATOSUS, LUPUS : Reviewed Car Seat Maker Letter Indication: ERYTHEMATOSUS, LUPUS Hypercholesteremia : *Cholesterol [...] exacerbation of COPD with asthma : Reviewed Car Seat Maker Letter Indication: Acute exacerbation of COPD with [...] Indication: Osteopenia SYMPTOM, ABNORMALITY, GAIT : Reviewed Car Seat Maker Letter Indication: SYMPTOM, ABNORMALITY, GAIT Hypercholesteremia : [...] Indication: ERYTHEMATOSUS, LUPUS ERYTHEMATOSUS, LUPUS : Reviewed Car Seat Maker Letter Indication: ERYTHEMATOSUS, LUPUS Hypertension, renal disease [...] Spinal stenosis of lumbar region : Reviewed Car Seat Maker Letter Indication: Spinal stenosis of lumbar region [...] Cervical strain Planned Observations URINALYSIS, W/ MICRO ([id number])Indication: Hypertension, renal disease On: :09 Request MICROALBUMIN: CREATININE RATIO (50100) AND ([id number])Indication: Hypertension, renal disease On: :09 Request METABOLIC PANEL, COMPREHENSIVE (43165)Indication: Hypertension, renal disease On: : Request CBC W/AUTO DIFF WBC ([id number])Indication: Hypertension, renal disease On: :09 Request TSH ([id number])Indication: Sinus bradycardia On: :08 Request CALCIFEDIOL (22758)Indication: Vitamin D deficiency On: : Request VITAMIN B-12 (CYANOCOBALAMIN) ([id number])Indication: Other vitamin B12 deficiency anemia On: :07 Request LIPID PANEL (33243)Indication: Hypercholesteremia On: :07 Request CBC WITH MANUAL DIFF ([id number])Indication: Other vitamin B12 deficiency anemia On: :20 Request VITAMIN B-12 (CYANOCOBALAMIN) (35035)Indication: Other vitamin B12 deficiency anemia On: :20 Request Metabolic Panel, Basic (50102)Indication: Hypopotassemia On: 1-Flo-982231:09 Request Comments: re check one week VITAMIN B-12 (CYANOCOBALAMIN) ([id number])Indication: Other vitamin B12 deficiency anemia On: :48 Request LIPID PANEL (41930)Indication: Hypertension, renal disease On: :46 Request MAGNESIUM (30586)Indication: Hypopotassemia On: :44 Request POTASSIUM SERUM (49150)Indication: Hypopotassemia On: :44 Request TSH (39188)Indication: Sinus bradycardia On: :35 Request CALCIFEDIOL (81914)Indication: Vitamin D deficiency On: :35 Request LIPID PANEL (33916)Indication: Hypercholesteremia On: :35 Request URINALYSIS, W/ MICRO (76007)Indication: Hypertension with heart disease On: 94-Ozq-948451:20 Request MICROALBUMIN: CREATININE RATIO (00934) AND (16746)Indication: Hypertension with heart disease On: 77-Qqk-700903:20 Request TSH ([id number])Indication: Hypercholesteremia On: :21 Request URINALYSIS, W/ MICRO ([id number])Indication: Hypertension, renal disease On: : Request MICROALBUMIN: CREATININE RATIO ([id number]) AND ([id number])Indication: Hypertension, renal disease On: : Request METABOLIC PANEL, COMPREHENSIVE (88764)Indication: Hypertension, renal disease On: : Request LIPID PANEL ([id number])Indication: Hypercholesteremia On: : Request CBC W/AUTO DIFF WBC ([id number])Indication: Hypertension, renal disease On: : Request VITAMIN B-12 (CYANOCOBALAMIN) ([id number])Indication: Other vitamin B12 deficiency anemia On: :19 Request CBC WITH MANUAL DIFF ([id number])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 On: 17-Feb-2016 Request Comments: STANDING ORDER CBC WITH MANUAL DIFF ([id number])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 On: 03-Feb-2016 Request Comments: STANDING ORDER CBC WITH MANUAL DIFF ([id number])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 On: 20-Jan-2016 Request Comments: STANDING ORDER CBC WITH MANUAL DIFF ([id number])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 On: 06-Jan-2016 Request Comments: STANDING ORDER CBC WITH MANUAL DIFF ([id number])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 On: 23-Dec-2015 Request Comments: STANDING ORDER CBC WITH MANUAL DIFF ([id number])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 On: 09-Dec-2015 Request Comments: STANDING ORDER CBC WITH MANUAL DIFF ([id number])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 On: 25-Nov-2015 Request Comments: STANDING ORDER CBC W/AUTO DIFF WBC ([id number])Indication: Anemia, unspecified On: 23-Nov-2015 Request CBC W/AUTO DIFF WBC ([id number])Indication: Anemia, unspecified On: 20-Nov-2015 Request CBC W/AUTO DIFF WBC ([id number])Indication: Anemia, unspecified On: 17-Nov-2015 Request CBC W/AUTO DIFF WBC ([id number])Indication: Anemia, unspecified On: 14-Nov-2015 Request CBC W/AUTO DIFF WBC ([id number])Indication: Anemia, unspecified On: 11-Nov-2015 Request CBC WITH MANUAL DIFF ([id number])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 On: 11-Nov-2015 Request Comments: STANDING ORDER CBC W/AUTO DIFF WBC ([id number])Indication: Anemia, unspecified On: 08-Nov-2015 Request CBC W/AUTO DIFF WBC ([id number])Indication: Anemia, unspecified On: 05-Nov-2015 Request CBC W/AUTO DIFF WBC ([id number])Indication: Anemia, unspecified On: 02-Nov-2015 Request CBC W/AUTO DIFF WBC ([id number])Indication: Anemia, unspecified On: 30-Oct-2015 Request CBC WITH MANUAL DIFF ([id number])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 On: 28-Oct-2015 Request Comments: STANDING ORDER CBC W/AUTO DIFF WBC ([id number])Indication: Anemia, unspecified On: 27-Oct-2015 Request CBC W/AUTO DIFF WBC ([id number])Indication: Anemia, unspecified On: 24-Oct-2015 Request CBC W/AUTO DIFF WBC ([id number])Indication: Anemia, unspecified On: 21-Oct-2015 Request CBC W/AUTO DIFF WBC ([id number])Indication: Anemia, unspecified On: 18-Oct-2015 Request CBC W/AUTO DIFF WBC ([id number])Indication: Anemia, unspecified On: 15-Oct-2015 Request CBC W/AUTO DIFF WBC ([id number])Indication: Anemia, unspecified On: 12-Oct-2015 Request CBC WITH MANUAL DIFF ([id number])Indication: Unspecified Diagnosis On: 01-Mjb-538018:43 Request CBC W/AUTO DIFF WBC ([id number])Indication: Anemia, unspecified On: 09-Oct-2015 Request FECAL OCCULT- Tubes sent home ([id number])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 On: 47-Dbq-557171:23 Request CBC W/AUTO DIFF WBC ([id number])Indication: Anemia, unspecified On: 06-Oct-2015 Request CBC W/AUTO DIFF WBC ([id number])Indication: Anemia, unspecified On: 03-Oct-2015 Request CBC W/AUTO DIFF WBC ([id number])Indication: Anemia, unspecified On: 30-Sep-2015 Request CBC WITH MANUAL DIFF ([id number])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 On: 30-Sep-2015 Request Comments: STANDING ORDER CBC W/AUTO DIFF WBC ([id number])Indication: Anemia, unspecified On: 27-Sep-2015 Request CBC W/AUTO DIFF WBC ([id number])Indication: Anemia, unspecified On: 24-Sep-2015 Request CBC W/AUTO DIFF WBC ([id number])Indication: Anemia, unspecified On: 21-Sep-2015 Request HEMOGLOBIN & HEMATOCRITIndication: Low hemoglobin and low hematocrit On: 66-Ykm-157016:44 Request CBC W/AUTO DIFF WBC ([id number])Indication: Anemia, unspecified On: 18-Sep-2015 Request CBC WITH MANUAL DIFF ([id number])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 On: 06-Wbj-717125:26 Request Comments: STANDING ORDER CBC W/AUTO DIFF WBC ([id number])Indication: Anemia, unspecified On: 15-Sep-2015 Request CBC W/AUTO DIFF WBC ([id number])Indication: Anemia, unspecified On: 12-Sep-2015 Request CBC W/AUTO DIFF WBC ([id number])Indication: Anemia, unspecified On: 09-Sep-2015 Request CBC W/AUTO DIFF WBC ([id number])Indication: Anemia, unspecified On: 06-Sep-2015 Request CBC W/AUTO DIFF WBC ([id number])Indication: Anemia, unspecified On: 03-Sep-2015 Request CBC W/AUTO DIFF WBC ([id number])Indication: Anemia, unspecified On: 31-Aug-2015 Request CBC W/AUTO DIFF WBC ([id number])Indication: Anemia, unspecified On: 8-Ttu-465118:38 Request Urine Protein Electrophoresis (UPEP) ([id number])Indication: Chronic kidney disease (CKD), stage 2 (mild) On: 81-Ssg-335747:18 Request Serum Protein Electrophoresis (SPEP) (97805)Indication: Chronic kidney disease (CKD), stage 2 (mild) On: 05-Ccr-131750:18 Request MAGNESIUM ([id number])Indication: Chronic kidney disease (CKD), stage 2 (mild) On: 18-Tsa-397974:18 Request PHOSPHORUS ([id number])Indication: Chronic kidney disease (CKD), stage 2 (mild) On: 30-Rge-742350:18 Request CALCIFEDIOL ([id number])Indication: Chronic kidney disease (CKD), stage 2 (mild) On: :18 Request PARATHORMONE ([id number])Indication: Chronic kidney disease (CKD), stage 2 (mild) On: :18 Request TSH ([id number])Indication: CAD in [place] artery On: :16 Request URINALYSIS, W/ MICRO ([id number])Indication: Hypertension, renal disease On: :16 Request MICROALBUMIN: CREATININE RATIO (59697) AND ([id number])Indication: Hypertension, renal disease On: :16 Request METABOLIC PANEL, COMPREHENSIVE ([id number])Indication: Hypertension, renal disease On: :16 Request LIPID PANEL (82203)Indication: Hypercholesteremia On: :16 Request CBC W/AUTO DIFF WBC ([id number])Indication: Hypertension, renal disease On: 06-Rqy-858812:16 Request HCT (Hematocrit) ([id number])Indication: Abnormal blood chemistry On: 4-Yjk-961091:00 Request HGB (HEMOGLOBIN) (37946)Indication: Abnormal blood chemistry On: 7-Vre-804301:00 Request IRON ([id number])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 On: 94-Rqk-785254:32 Request Iron ([id number])Indication: Anemia, unspecified On: 64-Jsb-786293:31 Request CBC W/AUTO DIFF WBC (04843)Indication: Anemia, unspecified On: 28-Ufu-471437:37 Request IRON ([id number])Indication: Anemia, unspecified On: 50-Udm-256831:41 Request IRON ([id number])Indication: Anemia, unspecified On: 30-Vin-238215:59 Request CBC, PLATELETS & MANUAL DIFF ([id number])Indication: Anemia, unspecified On: 4-Rxg-826049:54 Request Comments: recheck 03-08-14 LIAM TEST, DIRECT ([id number])Indication: Anemia, unspecified On: 55-Ovj-867586:25 Request FOLIC ACID SERUM (21239)Indication: Anemia, unspecified On: 18-Ucr-519923:25 Request Methymalonic Acid, Serum (13741)Indication: Anemia, unspecified On: : Request VITAMIN B-12 (CYANOCOBALAMIN) (16587)Indication: Anemia, unspecified On: : Request RETICULOCYTE COUNT MANUL (12833)Indication: Anemia, unspecified On: : Request LDH (LD) (LACTATE DEHYDROGENASE) (51580)Indication: Anemia, unspecified On: Request IRON BINDING CAPACITY (TIBC) (48145)Indication: Anemia, unspecified On: : Request IRON ([id number])Indication: Anemia, unspecified On: Request FERRITIN (92353)Indication: Anemia, unspecified On: Request CBC, PLATELETS & AUT DIFF (27949)Indication: Anemia, unspecified On: Request HCT (Hematocrit) (03458)Indication: Abnormal blood chemistry On: :18 Request Comments: stat HGB (HEMOGLOBIN) (68589)Indication: Abnormal blood chemistry On: :17 Request Comments: stat FECAL OCCULT HGB ASSAY- tubes sent home (55889)Indication: Encounter for Medicare annual wellness exam On: 39-Cag-592149:46 Request TSH (35648)Indication: Hypertension, renal disease On: :07 Request URINALYSIS, W/ MICRO (30537)Indication: Hypertension, renal disease On: 2-Wov-550494:07 Request MICROALBUMIN: CREATININE RATIO ([id number]) AND (36642)Indication: Hypertension, renal disease On: 2-Msq-550951:06 Request METABOLIC PANEL, COMPREHENSIVE (54695)Indication: Hypertension, renal disease On: :06 Request LIPID PANEL (57237)Indication: Hypertension, renal disease On: : Request CBC WITH MANUAL DIFF (75684)Indication: Hypertension, renal disease On: 7-Mmf-627841:06 Request Metabolic Panel, Basic (89429)Indication: Hypertension, renal disease On: 8-Dhc-726045:34 Request CREATININE CLEARANCE (57579)Indication: Hypertension, renal disease On: :52 Request CBC WITH MANUAL DIFF ([id number])Indication: Hypertension, renal disease On: :32 Request METABOLIC PANEL, COMPREHENSIVE (65895)Indication: Hypertension, renal disease On: :32 Request Sed Rate Erythrocyte (55472)Indication: Hypertension, renal disease On: :32 Request MICROALBUMIN 24 HOUR OR RANDOM (17530)Indication: Hypertension, renal disease On: :32 Request Urine Protein Electrophoresis (UPEP) (07260)Indication: Hypertension, renal disease On: :32 Request Serum Protein Electrophoresis (SPEP) ([id number])Indication: Hypertension, renal disease On: : Request MAGNESIUM ([id number])Indication: Hypertension, renal disease On: :32 Request PHOSPHORUS ([id number])Indication: Hypertension, renal disease On: :32 Request CALCIFEDIOL (06226)Indication: Hypertension, renal disease On: :32 Request PARATHORMONE ([id number])Indication: Hypertension, renal disease On: :32 Request FECAL OCCULT HGB ASSAY- tubes sent home ([id number])Indication: Weight loss On: 9-Twv-487032:07 Request HEPATIC FUNCTION PANEL ([id number])Indication: Hypercholesteremia On: :26 Request LIPID PANEL ([id number])Indication: Hypercholesteremia On: :26 Request C-REACTIVE PROTEIN ([id number])Indication: Abdominal pain, unspecified abdominal location On: :43 Request Sedimentation Rate-ESR (35230)Indication: Abdominal pain, unspecified abdominal location On: :43 Request Metabolic Panel, Comprehensive (54513)Indication: Abdominal pain, unspecified abdominal location On: :42 Request CBC with manual diff ([id number])Indication: Abdominal pain, unspecified abdominal location On: :42 Request Lipase (51625)Indication: Abdominal pain, unspecified abdominal location On: :42 Request Amylase (60931)Indication: Abdominal pain, unspecified abdominal location On: 27-Aug-20108:42 Request TSH ([id number])Indication: Hypercholesteremia On: :17 Request URINALYSIS, W/ MICRO ([id number])Indication: Hypertension, renal disease On: :17 Request MICROALBUMIN: CREATININE RATIO (59004) AND ([id number])Indication: Hypertension, renal disease On: :17 Request METABOLIC PANEL, COMPREHENSIVE ([id number])Indication: Hypertension, renal disease On: :17 Request CBC WITH MANUAL DIFF ([id number])Indication: Hypertension, renal disease On: :17 Request LIPID PANEL ([id number])Indication: Hypercholesteremia On: :17 Request Creatine (02348)Indication: Hypertension, renal disease On: :19 Request Urinalysis, Office ([id number])Indication: Abdominal pain, unspecified abdominal location On: 56-Mxj-709768:09 Request TSH ([id number])Indication: Hypercholesteremia On: 60-Fka-193070:07 Request METABOLIC PANEL, COMPREHENSIVE ([id number])Indication: Hypertension, renal disease On: 77-Vvo-951706:06 Request LIPID PANEL (05527)Indication: Hypertension, renal disease On: 55-Phs-773740:06 Request CBC WITH MANUAL DIFF ([id number])Indication: Hypertension, renal disease On: 91-Hiv-027096:06 Request Folate ([id number])Indication: Fatigue On: 58-Xxu-059839:41 Request FECAL OCCULT HGB ASSAY- tubes sent home (77892)Indication: Well woman exam On: 19-Iqx-767312:37 Request HEPATIC FUNCTION PANEL ([id number])Indication: Hypercholesteremia On: 09-Kjs-583600:36 Request LIPID PANEL (03574)Indication: Hypercholesteremia On: 31-Iqx-769108:36 Request Comments: do in 2- 2 1/2 months CCP ANTIBODY ([id number])Indication: Pain in thoracic spine On: 8-Mzu-758061:18 Request Vitamin D Hydroxy ([id number])Indication: Osteopenia On: 75-Fiu-624975:19 Request HEPATIC FUNCTION PANEL ([id number])Indication: Hypercholesteremia On: 36-Ctm-964282:15 Request LIPID PANEL (93633)Indication: Hypercholesteremia On: :15 Request Comments: do in 3 mo LIPOPROTEIN, BLD, BY NMR ([id number])Indication: Hypercholesteremia On: :15 Request Urinalysis, Office ([id number])Indication: BLADDER RETENTION OF URINE On: :19 Request Comments: NEG TSH ([id number])Indication: Irritable bowel syndrome On: :53 Request MICROALBUMIN: CREATININE RATIO On: :53 Request ([id number]) AND (31902) METABOLIC PANEL, COMPREHENSIVE On: :53 Request ([id number]) LIPOPROTEIN, BLD, BY NMR ([id number]) On: :53 Request LIPID PANEL (81069) On: :53 Request CBC WITH MANUAL DIFF ([id number]) On: :51 Request Planned Procedures Spirometry ([id number])By: Chapis MONTGOMERY, On: 18-Oct-2017 Intent Priya Atkinson DO ELECTROCARDIOGRAM, COMPLETE (ECG) On: 18-Oct-2017 Intent (52366)By: Priya Jimenez DO, DO, Kathleen B 12 Injection, 1000 mcg (J3420)By: On: 15-Apr-2017 Intent Priya Jimenez DO, DO, Comments: 1 ml given lt arm lot [id number] exp 09/11 Priya B 12 Injection, 1000 mcg (J3420)By: On: 12-Nov-2016 Intent Priya Jimenez DO, DO, Kathleen INTENSIVE BEHAVIORAL THERAPY TO On: 08-Jul-2016 Intent REDUCE CARDIOVASCULAR DISEASE RISK, INDIVIDUAL, AGOF-XS-KLLA, ANNUAL, 15 MINUTES (G0446)By: Priya Jimenez DO, DO, Kathleen ELECTROCARDIOGRAM, COMPLETE (ECG) On: 11-Jun-2016 Intent (97640)By: Priya Jimenez DO Comments: sinus jg no acute chg - nonspefic flattening st waves Priya Jimenez DO B 12 Injection, 1000 mcg (J3420)By: On: 05-Sep-2015 Intent Priya Jimenez DO, DO, Comments: lot #[id number] exp 02-09 Left arm Priya EMGBy: Chapis DO, Priya Chapis On: 13-Aug-2015 Intent DO, Priya Nerve ConductionBy: Chapis DO, On: 13-Aug-2015 Intent Priya Chapis DO, Priya B 12 Injection, 1000 mcg (J3420)By: On: 13-Aug-2015 Intent Chapis DO, Priya Chapis DO, Comments: Lot:[id number]:09/09Dose:1mlRoute:IMSite:larmGiven By:LindaKMVIS signed Priya PNEUM VAC ADLT/IMUMNOSPR, SBC/INTRM On: 13-Aug-2015 Intent (53132)By: Chapis DO, Priya Comments: pneumovaxlot:[id number]:01/31/17site:lt deltroute:IMSOFÍA Sky Chapis DO, Priya Radiology - PelvisBy: Chapis [...] DO, Comments: given - 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, 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 Flu Vaccine (Quadrivalent) [id number]: On: 04-Feb-2015 Intent Chapis DO, Priya Chapis DO, Comments: lot [id number]: 10/24/2015site/route L janet, IMamt 0.5mlVIS and ABN signed when applicableChelsea, CMAFM4 Priya Holter Monitor 24 hrsBy: Chapis DO, On: 10-Oct-2014 Intent Priya Chapis DO, Priya Venous Doppler - LeftBy: Elda LOU, On: 03-Jul-2014 Intent Ayesha Radiology - Lumbar SpineBy: Elda On: 03-Jul-2014 Intent Kenn LOU Toradol Injection, 30 mg On: 03-Jul-2014 Intent (J1885)By: Elda Kenn LOU Venous Doppler - RightBy: Elda On: 03-Jul-2014 Intent Kenn LOU Six Minute Walk Assessment On: 07-Mar-2014 Intent (36465)By: Priya Jimenez DO Comments: set up Priya Jimenez DO Prevnar 13 (56833)By: Chapis MONTGOMERY, On: 21-Feb-2014 Intent Priya Atkinson DO Comments: [id number] arm, IMAS ADMINISTRATION OF INFLUENZA VIRUS On: 21-Feb-2014 Intent VACCINE (G0008)By: Chapis MONTGOMERY, Comments: [id number] syringeL Dltd, IMAS, LPNABN and VIS signed Priya Atkinson DO Flu Vaccine (Quadrivalent) [id number]: On: 21-Feb-2014 Intent Priya Jimenez DO, DO, Kathleen Bone Density StudyBy: Chapis MONTGOMERY, On: 26-Jul-2013 Intent Priya Atkinson DO Spirometry (60047)By: Chapis MONTGOMERY, On: 22-Feb-2013 Intent Priya Atkinson DO Comments: obstr present - presnet taking mdi's- and trying to quit with ecig FLU VAC, SPLIT, >3 YEARS, INTRAMUSC On: 22-Feb-2013 Intent (44144)By: Joaquina Young LPN Comments: Lot:[id number]:6.14Amt:0.5mlRoute:IMSite: L DltdGiven By: NOEMY MazaVIS signed ADMINISTRATION OF INFLUENZA VIRUS On: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
--- OUTSIDE RECORDS SUMMARY | 2018-05-23 13:41 | XMS RPT_ITS | Continuity of Care Document ---
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 [facility] Imaging Services [address] [place] [address] Radiology Report MR#: [id number] Acct: [id number] Name: KILEY DREW Rep #: [id number] : 1935 F 78 From: Ester Bautista MD PCP: Priya Jimenez DO Status: REG ER Study: Chest 1 View (Portable) Date of Exam: 05/11/14 Exam# [id number] Ordering Dr: Moncho Sahu MD STUDY: X-RAY [...] at 14:05 EST Tel , Service support [phone], RAD/Chest 1 View (Portable) IMPRESSION: There are stable findings. Electronically Signed: Ester Bautista MD at 14:05 EST , Service support [phone], CC: Priya Jimenez DO; Moncho Sahu MD Lay Out Machine Operator: Signed 23-Apr-2014 Chest PA and Lateral Result: Comments: See Note; NOTES: [facility] Imaging Services [address] [place] [address] Radiology Report MR#: [id number] Acct: [id number] Name: KILEY DREW Rep #: [id number] : 1935 F 78 From: Edmundo Zhou MD PCP: Priya Jimenez DO Status: REG CLI Study: Chest PA and Lateral Date of Exam: 04/23/14 Exam# [id number] Ordering Dr: Sincere Castillo MD STUDY: X-RA [...] Danny Zhou MD at 14:32 EST Tel [phone], Service support [phone], CC: Sincere Castillo MD; Priya Jimenez DO Lay Out Machine Operator: Signed 17-Apr-2014 Pulmonary Function Report Comp Result: Comments: See Note; NOTES: [facility] Pulmonary Services/Neurology [address] [place] [address] Pulmonary Function Test (Comp) MR#: [id number] Acct: [id number] Name: KILEY TEMPLE Rep #: [id number] : 1935 78 From: Sincere Castillo MD Referring Dr: Sincere Castillo MD Status: REG CLI Ordering Dr: Sincere Castillo MD Date: 04/13/14 Location: [facility] Sex: F C Date: 03/26 01/07 [...] Dictated: 04/14/14 1110 Date Transcribed: 04/15/14 0705 Lay Out Machine Operator: CAROL ANN Signed 31-Jan-2014 Echocardiogram, Limited Study Result: Comments: See Note; NOTES: [facility] Cardiovascular Services [address] [place] [address] Echo, Limited Study 01/31/14 1347 MR#: [id number] Acct: [id number] Name: KILEY TEMPLE Rep #: [id number] : 1935 78 From: Pete Castro MD [...] Dictated: 01/31/14 1347 Date Transcribed: 01/31/14 1539 Lay Out Machine Operator: Signed 13-Nov-2013 Echocardiogram Complete Result: Comments: See Note; NOTES: [facility] Cardiovascular Services [address] [place] [address] Echo Complete 11/13/13 1321 MR#: [id number] Acct: [id number] Name: REGAN DREW RA Rep #: [id number] : 1935 78 From: Kaden Barboza MD Attending Dr: Tamra AVILA,Kaden Status: REG CLI Ordering Dr: Kaden Barboza MD Date: 11/13/13 Location: [facility] Sex: F C Admitted: Procedur e This [...] Physician: Kaden Barboza Performed By: Zee Joya [facility] : Kaden Barboza MD; Priya Jimenez DO Date Dictated: 11/13/13 1321 Date Transcribed: 11/13/13 1631 Lay Out Machine Operator: Signed 27-Sep-2013 Dexa Bone Density Study (HP) Result: Comments: See Note; NOTES: [facility] Imaging Services [address] [place] [address]82 Bone Density Report MR#: [id number] Acct: [id number] Name: KILEY DREW Jada Rep #: [id number] : 1935 F 78 From: Kit Castillo MD PCP: Priya Jimenez DO Status: [facility] Study: Dexa Bone Density Study (HP) Date of Exam: 09/27/13 Exam# [id number] Ordering Dr: Terrie Jimenez DO STUDY: DUAL [...] a moderate fracture risk. On the lateral watch and clock repairer view, there is evidence of increased kyphosis. [...] Kit Castillo MD at 14:27 EDT Tel [phone], Service support [phone], CC: Priya Jimenez DO Lay Out Machine Operator: Signed 16-Aug-2013 Kidney and Bladder Result: Comments: See Note; NOTES: [facility] Imaging Services [address] [place] [address] Ultrasound Report MR#: [id number] Acct: [id number] Name: KILEY DREW Rep #: [id number] : 1935 F 77 From: Kit Castillo MD PCP: Priya Jimenez DO Status: REG CLI Study: Kidney and Bladder Date of Exam: 08/16/13 Exam# [id number] Ordering Dr: Ross Mello MD STUDY: RENAL [...] Kit Castillo MD at 9:30 EDT Tel [phone], Service sup port [phone], CC: Priya Jimenez DO; Ross Mello MD Lay Out Machine Operator: Signed Immunization Name Dates Details Influenza (3 years and up) on: 03-Jan-2009 Comments: Lot #:[id number] date: mount given: 0.5 mlRoute: IMSite [...] Active Vital Signs Date Test Result Details 31-Asj-130188:21 Comments: hearing wnlDr. Chambers and had glaucoma [...] W/Diff, Automated Comments: Reason for Laboratory Test .[facility] [address] [place], [address] Absolute Lymph 0.86 {X10_3/ul} (Normal) [...] 4.2-5.4 WBC 8.0 K/mm3 (Normal) Range: 4.4-11.0 14-Mfm-16764:45 Comprehensive Metabolic Profil Comments: [facility] [address] [place], [address] GAP 6 (Normal) Range: 5-15 [...] A.D.A. criteria.Please note revised GLUCOSE reference range ltlguddtn52/02/2018. :45 Ferritin Comments: [facility] [address] [place], [place], [address] FERRITIN 261 ng/mL (Abnormal) Range: 8-252 :45 Iron+Iron Binding Capacity Comments: [facility] [address] [place], [address] IRON SATURATION 19.1 % (Normal) Range: 15.0-55.0 IRON 63 ug/dL (Normal) Range: 50-170 TIBC 329 ug/dL (Normal) Range: 250-450 :00 CBC W/Diff, Automated Comments: [facility] [address] [place], [address] Absolute Lymph 1.19 {X10_3/ul} (Normal) [...] Range: 4.4-11.0 25-Oct-20170:00 Comprehensive Metabolic Profil Comments: [facility] [address] [place], [place], [address] GAP 5 (Normal) Range: 5-15 CO2 43.0 [...] Comments: Please note revised GLUCOSE reference range hubxncscv55/02/2018. 25-Oct-20170:00 Lipid Profile Comments: [facility] [address] [place], [place], [address] VLDL 12 mg/dL (Normal) Range: 5-40 LDL [...] High Risk 25-Oct-20170:00 Microalb:Creat Ratio,Random UR Comments: [facility] [address] [place], [address] MALB:CREAT 38.8 {mg/g_CRE} (Abnormal) MICROALBUMIN,UR 27.3 mg/L (Normal) UR CREAT 70.40 mg/dL (Normal) :00 Miscellaneous Lab Procedure Comments: Test(s) Ordered: [id number] calcifediol room temp/ serum or [facility] [address]phrirz49[address] [place], [phone] [facility] Comments: TEST RESULT LIMITSCalcitriol (1,25 di-OH Vit D) 42.8 pg/mL 19.9 - 79.3 TESTING PERFORMED AT [facility] (Normal) NAL REPORT ON FILE IN LAB CONTAINS ADDITIONAL TEST SITE INFORMATION. TEST 25-Oct-20170:00 Thyroid Stim Hormone (TSH) Comments: [facility] [address] [place] [place], [address] TSH 2.95 {uIU/mL} (Normal) Range: 0.358-3.74 25-Oct-20170:00 Urinalysis, Complete Comments: How was Urine Obtained? CLEAN [facility] [address] [place], [address] HYALINE CAST 0-5 SEEN {/lpf} (Normal) [...] 25-Oct-20170:00 Vitamin B12 627 pg/mL (Normal) Comments: [facility] Omkixgtzud3970 [facility] [address]. [place], [place], [address] Range: 211-911 50-Ppx-00296:00 CBC W/Diff, Automated Comments: [facility] [address] [place], [place], [address] Absolute Lymph 1.16 {X10_3/ul} (Normal) Range: 0.83-4.51 [...] 4.2-5.4 WBC 9.0 K/mm3 (Normal) Range: 4.4-11.0 85-Xxz-85940:00 Vitamin B12 851 pg/mL (Normal) Comments: [facility] Uawiyssxxq0440 [facility] [address]. [place], [place], [address] Range: 211-911 50-Qzr-524340:33 CBC W/Diff, Automated Comments: [facility] Qljrkfcmww7965 [facility]. [place], [place], [address] Absolute Lymph 1.38 {X10_3/ul} (Normal) Range: 0.83-4.51 [...] 4.2-5.4 WBC 8.4 K/mm3 (Normal) Range: 4.4-11.0 54-Hvy-729011:20 Basic Metabolic Profile (BMP) Comments: [facility] [address] [place], [address] GAP Test not performed [...] 7-18 GLU 103 mg/dL (Normal) Range: 70-110 2-Mys-469511:00 Magnesium Comments: [facility] [address]cs[address] [place], [address](965) MG 1.8 mg/dL (Normal) Range: 1.8-2.4 5-Upz-728457:00 Potassium Comments: [facility] [address] [place], [phone]) K 3.4 mmol/L (Abnormal) Range: 3.5-5.1 3-Jqh-769645:18 CBC W/Diff, Automated Comments: [address] [place], [address]) Absolute Lymph 1.22 {X10_3/ul} (Normal) Range: 0.83-4.51 [...] 4.2-5.4 WBC 8.9 K/mm3 (Normal) Range: 4.4-11.0 0-Jxj-300528:05 Comprehensive Metabolic Profil Comments: Reason for Laboratory Test .[facility] [address] [place], [address] GAP 3 (Abnormal) Range: 5-15 CO2 40.0 [...] 7-18 GLU 93 mg/dL (Normal) Range: 70-110 5-Shh-232903:05 Ferritin Comments: Reason for Laboratory Test .[facility] V[address] [facility] [address] [place], [place], [address] FERRITIN 311 ng/mL (Abnormal) Range: 8-252 4-Kgu-705995:05 Iron+Iron Binding Capacity Comments: Reason for Laboratory Test .[facility] [address] [place], [place], [address] IRON SATURATION 16.5 % (Normal) Range: 15.0-55.0 IRON 53 ug/dL (Normal) Range: 50-170 TIBC 322 ug/dL (Normal) Range: 250-450 87-Xot-710200:36 CBC W/Diff, Automated Comments: [facility] Z[address]hipcal[address] [facility] [address] [place], [place], [address] Absolute Lymph 1.34 {X10_3/ul} (Normal) Range: 0.83-4.51 [...] 4.2-5.4 WBC 8.1 K/mm3 (Normal) Range: 4.4-11.0 34-Ftj-869700:36 Comprehensive Metabolic Profil Comments: Reason for Laboratory [facility] [address]zeipx[address] [place], [address] GAP 8 (Normal) Range: 5-15 CO2 38.0 [...] 7-18 GLU 80 mg/dL (Normal) Range: 70-110 06-Mvy-864147:36 Ferritin Comments: Reason for Laboratory Test [facility] Sobfsibxdc5138 [facility] [address] [place], [place], [phone]) FERRITIN 249 ng/mL (Normal) Range: 8-252 61-Btu-619341:36 Iron Comments: Reason for Laboratory Test [facility] Ymxwoxfjvy5013 [facility] [address] [place], [place], [address] IRON 69 ug/dL (Normal) Range: 50-170 5-Qlk-591782:40 CBC W/Diff, Automated Comments: [facility] Bddzefzzdh2874 [facility] [place], [place], [address] Absolute Lymph 1.03 {X10_3/ul} (Normal) Range: 0.83-4.51 [...] 4.2-5.4 WBC 8.9 K/mm3 (Normal) Range: 4.4-11.0 9-Mnh-433880:40 Comprehensive Metabolic Profil Comments: Reason for Laboratory Test [facility] Qozqgnvixp8122 [facility] [place], [place], [address] GAP 3 (Abnormal) Range: 5-15 CO2 40.0 [...] 7-18 GLU 71 mg/dL (Normal) Range: 70-110 1-Jgh-809225:40 Ferritin Comments: Reason for Laboratory Test [facility] [address]gcx[address] [place], [place], [address] FERRITIN 178 ng/mL (Normal) Range: 8-252 2-Ygu-107925:40 Iron Comments: Reason for Laboratory Test [facility] [address]clq[address] [place], [place], [address] IRON 59 ug/dL (Normal) Range: 50-170 47-Hmx-228353:12 CALCIFIDIOL (73019) VIT D 25 Comments: PATIENT WAS FASTINGPERFORMED BY: [facility] Vvayip8736 [facility] [id number] Vitamin D, 25-Hydroxy 21.8 ng/mL (Abnormal) Range: 30.0-100.0 Comments: Vitamin D deficiency has been defined by the [place] and an Endocrine Society practice guideline as alevel of serum 25-OH vitamin D less than 20 ng/mL (1,2).The Endocrine Society went on to further define vitamin Dinsufficiency as a level between 21 and 29 ng/mL (2).1. IOM ([place] [employer]). 2010. Dietary reference intakes for calcium and D. [place]: The National Academies Press.2. Armond MF, Rosa [place], Kyler ANDREWS, et al. Evaluation, treatment, and prevention of vitamin D deficiency: an Endocrine Society clinical practice guideline. JCEM. 2010; 96(7):5401-30. 19-Nkr-262126:12 VITAMIN B-12 (CYANOCOBALAMIN) Comments: PATIENT WAS FASTINGPERFORMED BY: [facility] Srtdan6102 [facility] [id number] (84716) Vitamin B12 517 pg/mL (Normal) Range: 211-946 13-Hfz-373051:12 TSH (81738) Comments: PATIENT WAS FASTINGPERFORMED BY: [facility]6370 [facility] [id number] TSH 1.500 {uIU/mL} (Normal) Range: 0.450-4.500 :12 METABOLIC PANEL, COMPREHENSIVE Comments: PATIENT WAS FASTINGPERFORMED BY: [facility] Klbsvd0273 [facility] [id number] (45447) ALT (SGPT) 14 [iU]/L (Normal) Range: 0-32 [...] Glucose, Serum 83 mg/dL (Normal) Range: 65-99 79-Kzi-597488:12 LIPID PANEL (69104) Comments: PATIENT WAS FASTINGPERFORMED BY: [facility] Gymhia67[address] [place] [id number] LDL/HDL Ratio 1.0 {ratio_units} (Normal) Range: 0.0-3.2 Comments: LDL/HDL Ratio Men Women 1/2 Avg.Risk 1.0 1.5 Av g.Risk 3.6 3.2 2X Avg.Risk 6.2 5.0 3X Avg.Risk 8.0 6.1 LDL Cholesterol Calc 77 mg/dL (Normal) Range: 0-99 VLDL Cholesterol Pete 18 mg/dL (Normal) Range: 5-40 HDL Cholesterol 78 mg/dL (Normal) Triglycerides 89 mg/dL (Normal) Range: 0-149 Cholesterol, Total 173 mg/dL (Normal) Range: 100-199 39-Gpl-928523:09 CBC W/Diff, Auto - EPLAB Comments: At [facility] Outpatient [facility] Medical Oncologypatients receive CBC w/auto Differential ONLY. Physicianwill place an order for a manual differential or Pathologistreview at his discretion. [facility] OUTPATIENT [facility]. [address] [place] [address] [address] PLASTICS PLATER: KURTIS STEVENS DO PH:[phone] City Hospital [address]bxib[address] [place], [place], [address] Absolute Lymph 1.19 {X10_3/uL} (Normal) Range: 0.83-4.51 [...] 4.2-5.4 WBC 9.0 K/mm3 (Normal) Range: 4.4-11.0 45-Zhf-165889:10 CBC W/Diff, Automated Comments: [facility] [address] [place], [place], [address] Absolute Lymph 0.80 {X10_3/ul} (Abnormal) Range: 0.83-4.51 [...] 4.2-5.4 WBC 6.2 K/mm3 (Normal) Range: 4.4-11.0 40-Jko-036020:25 CBC W/Diff, Auto - EPLAB Comments: At [facility] Outpatient [facility] Medical Oncologypatients receive CBC w/auto Differential ONLY. Physicianwill place an order for a manual differential or Pathologistreview at his discretion. [facility] OUTPATIENT [facility]. [address] [place] [address] [place] [address] PLASTICS PLATER: KURTIS STEVENS DO PH:[phone] City Hospital [address]ux[address] [place], [address] Absolute Lymph 0.75 {X10_3/uL} (Abnormal) [...] 4.2-5.4 WBC 7.7 K/mm3 (Normal) Range: 4.4-11.0 5-Zjp-745183:50 Urinalysis, Complete Comments: How was Urine Obtained? RAILWAY SHUNTER TO SPECIFYL[facility] Hospital [address]sfd[address] [place], [place], [address] MUCUS, URINE 0 SEEN {/hpf} (Normal) BACTERIA [...] CLARITY Sl. Cloudy (Normal) COLOR Yellow (Normal) 1-Vxd-480911:00 Basic Metabolic Profile (BMP) Comments: [facility] Atbxtkrfvy3364 [facility]. [place], [place], [address] GAP 6 (Normal) Range: 5-15 CO2 38.0 [...] 7-18 GLU 101 mg/dL (Normal) Range: 70-110 7-Gpi-897056:00 CBC W/Diff, Automated Comments: [facility] [address] [place], [address] Absolute Lymph 0.60 {X10_3/ul} (Abnormal) [...] 4.4-11.0 :30 Miscellaneous Lab Procedure Comments: Comments: [id number], [id number](s) Ordered: Flow [id number] Test(s) Ordered by Physician: Cytogenetics [id number]. [facility] of [facility] Hospital [address]xcyzgn[address] [place], [place], [address] [facility] LAB TEST FLOW-SEE PTH (Normal) :30 Miscellaneous Lab Procedure 2 Comments: Comments: [id number], [id number](s) Ordered: Flow [id number] Test(s) Ordered by Physician: Cytogenetics [id number] City Hospital [address]nfmh[address] [place], [place], [address] [facility] LAB TEST 2 CYTO-SEE PTH (Normal) :03 CBC W/Diff, Auto - EPLAB Comments: At [facility] Outpatient [facility] Medical Oncologypatients receive CBC w/auto Differential ONLY. Physicianwill place an order for a manual differential or Pathologistreview at his discretion. [facility] OUTPATIENT [facility]. [address] [place] [address] [place] [address] PLASTICS PLATER: KURTIS STEVENS DO PH:[phone] City Hospital [address]jpbnq[address] [place], [place], [address] Absolute Lymph 0.74 {X10_3/uL} Range: 0.83-4.51 (Abnormal) [...] BONE MARROW BIOPSY See Note (Normal) Comments: [facility] [address] [place], [address] 0 Comments: Patient: KILEY DREW : 1935 (80/F) Acct Num: [id number] Phys: Devon Jenkins Unit Num: [id number] Loc: [facility] Specimen: [id number] Received: 11/26/15 - 50 Spec Type: BMB TISSUES TISSUES: ADDENDUM Addendum Number 1 CYTOGENETICS REPORT FROM [facility] CYTOGENETIC RESULT: 46,XX[20] INTERPRETATION: Normal female karyotype was observed in twenty m etaphases analyzed. Please see complete report in e-chart or EMR for further details Addendum Signed [facility] 12/05/15 <signa maria victoria on file> BONE [...] and cytogenetics. / TIFFANIE:manas 11/26/15 TC:0 CPT: 88169, 58437, 24329 x2, 49557 x3, 88239 BONE MARROW STUDY Slides are reviewed. CBC [...] send outs (flow and cytogenetics) Signed [facility] 11/29/15 <signature on file> :0 IMMUNOHISTOCHEMISTRY See Note (Normal) Comments: [facility] [address] [place], [address] 0 Comments: Patient: KILEY DREW : 1935 (80/F) Acct Num: [id number] Phys: Devon Jenkins Unit Num: [id number] Loc: [facility] Specimen: [id number] Received: 11/27/15 - 1310 Spec Type: IMMUNO TISSUES TISSUES: SPECIMEN INFORMATION: Tissue Source: Bone marrow biopsy and aspiration Clinical Info: Anemia Specimen Number: [id number] CPT code: 90688, 60343 x14 METHOD OLOGY: Deparaffinized sections of prefer/formalin-fixed [...] positive CD79a (11E3) positive CD138 (B-A38) negative Literberry (polyclonal) negative Lambda (polyclonal) negative CD10 (56C6) negative CD23 (1B12) negative BCL-2 (bcl-2/100/D5) negative BCL-6 (CQ916A/A8) negative Cyclin D1/BCL-1 (SP4) negative Ki-67 (30-9) negative These tests were developed and their performance characteristics determined by [facility]. They may not have been cleare d or approved by the U.S. Food and Drug Administration. The FDA has determined that such clearance or approval is not necessary. INTERPRETATION: A. Bone marrow core: Polytypic (benign) lymphoid aggregate. Case has been reviewed in consultation with Dr. Smith who concurs with the abovediagnosis. IDC:TIFFANIE AM:manas 11/28/15 PHYSICIAN AND INSTITUTION [facility] [address] [place], [place] [address] Signed Kurtis Stevens 11/28/15 <signature on file> 99-Nrn-847886:37 Basic Metabolic Profile (BMP) Comments: [facility] [address] [place], [place], [address] GAP 6 (Normal) Range: 5-15 CO2 36.0 [...] 7-18 GLU 90 mg/dL (Normal) Range: 70-110 72-Pmw-074694:36 CBC W/Diff, Auto - EPLAB Comments: At [facility] Outpatient [facility] Medical Oncologypatients receive CBC w/auto Differential ONLY. Physicianwill place an order for a manual differential or Pathologistreview at his discretion. [facility] OUTPATIENT [facility]. [address] [place] [address] [address] PLASTICS PLATER: KURTIS STEVENS DO PH:[phone]. John of God Hospital Lemctssnab[address] [place], [place], [address] Absolute Lymph 0.96 {X10_3/uL} (Normal) Range: 0.83-4.51 [...] 4.4-11.0 :25 Basic Metabolic Profile (BMP) Comments: [facility] [address] [place], [address] GAP 2 (Abnormal) Range: 5-15 CO2 38.0 [...] 7-18 GLU 102 mg/dL (Normal) Range: 70-110 43-Cny-954197:15 Comments: Non-[facility] - refer to report for specific site [id number] TRANSFUSED PRODUCT: T AND S with Crossmatch, Red Cells COUNT: 2 (Normal) 46-Ezr-891606:15 Type AND Screen Comments: CMV NEG?* NGive When? When ReadyIrradiated? YLeukodepleted? YReason for Type AND Screen/Red Cells: [facility] [address]wsej[address] [place], [address] Antibody Screen NEGATIVE (Normal) BLOOD TYPE GEL A POSITIVE (Normal) 45-Fki-878190:15 Type AND Screen Comments: CMV NEG?* NGive When? When ReadyIrradiated? YLeukodepleted? YReason for Type AND Screen/Red Cells: [facility] Q[address]dgukzsl07[address] [place], [address] ; Managed by Devon Jenkins Antibody Screen NEGATIVE (Normal) BLOOD TYPE GEL A POSITIVE (Normal) 70-Cre-015574:03 CBC W/Diff, Auto - EPLAB Comments: At [facility] Outpatient [facility] Medical Oncologypatients receive CBC w/auto Differential ONLY. Physicianwill place an order for a manual differential or Pathologistreview at his discretion. [facility] OUTPATIENT [facility]. [address] [place] [address] [place] [address] PLASTICS PLATER: KURTIS STEVENS DO PH:[phone] City Hospital [address]foizxuc[address] [place], [address] Absolute Lymph 0.65 {X10_3/uL} (Abnormal) [...] 4.2-5.4 WBC 9.6 K/mm3 (Normal) Range: 4.4-11.0 65-Yvh-477574:05 Comprehensive Metabolic Profil Comments: Serial Specimen #1, #2 or #3? 1WSt. [facility] of God Hospital K[address]sxkwx57[address] [place], [place], [address] GAP 5 (Normal) Range: 5-15 CO2 40.0 [...] Comments: Serial Specimen #1, #2 or #3? [address] [place] [address] [address] [place], [place], [address] Range: 84-246 :05 Uric Acid Comments: Serial Specimen #1, #2 or #3? [address] [place] [address] [address] [place], [place], [address] URIC 4.1 mg/dL (Normal) Range: 2.6-6.0 Comments: The drugs N-Acetylcysteine and Metamizole may falsely deressthis assay. :04 CBC W/Diff, Auto - EPLAB Comments: At [facility] Medical Oncologypatients receive CBC w/auto Differential ONLY. Physicianwill place an order for a manual differential or Pathologistreview at his discretion. [facility] OUTPATIENT [facility]. [address] [place] [address] PLASTICS PLATER: KURTIS STEVENS DO PH:[phone] City Hospital [address]xlvbfaan7[address] [place], [address] Absolute Lymph 0.78 {X10_3/uL} (Abnormal) [...] Range: 4.4-11.0 :31 CBC W/Diff, Automated Comments: [facility] [address]qh[address] [place], [place], [address] OVALOCYTE 1+ (Normal) HYPOCHROMASIA 1+ (Normal) ANISO [...] K/mm3 (Normal) Range: 4.4-11.0 :35 RC Comments: Non[facility] - refer to report for specific site [id number] TRANSFUSED PRODUCT: T AND S with Crossmatch, Red Cells COUNT: 2 (Normal) :35 Type AND Screen Comments: CMV NEG?* NGive When? 702152Aacybsvvdi? YLeukodepleted? YReason for Type AND Screen/Red Cells: [facility]WSt[facility] Xzvahryzho1352 [place], [place], [address] Antibody Screen NEGATIVE (Normal) BLOOD TYPE GEL A POSITIVE (Normal) 17-Dgl-647736:41 Bilirubin, Direct Comments: Serial Specimen #1, #2 or #3? 1[facility] Quoxscljyi1086 [place], [place], [address] D BILI 0.13 mg/dL (Normal) Range: 0.00-0.30 :41 CBC W/Diff, Automated Comments: PERIPHERAL BLOOD FLOW CYTOMETRYWSt. John of God Hospital Hytaifmgju5601 [place], [address] MICROCYTES 1+ (Normal) HYPOCHROMASIA 2+ [...] 4.2-5.4 WBC 7.0 K/mm3 (Normal) Range: 4.4-11.0 54-Mzt-439876:41 Comprehensive Metabolic Profil Comments: Serial Specimen #1, #2 or #3? 1WSt. [facility] Xlwrijikao9945 [place], [place], [address] GAP 3 (Abnormal) Range: 5-15 CO2 39.0 [...] 70-110 :41 Direct Antiglobulin Liam BRIAN Comments: [facility] Gmvczvzand3305 [facility] [place], [address] DIRECT LIAM= NEG w/POLYSPECIFIC (Normal) 33-Jbi-201788:41 Erythropoietin Comments: Is Patient Fasting? [facility] (refer to report for specific site)refer to report for address and phone number ERYTHROP [id number] 97.7 m[iU]/mL (Abnormal) Range: 2.6-18.5 28-She-294190:41 Ferritin Comments: Serial Specimen #1, #2 or #3? 1WSt. [facility] Kpallcqpnr2941 [facility] [place], [address] FERRITIN 13 ng/mL (Normal) Range: 8-252 60-Fdi-751641:41 Haptoglobin Comments: Is Patient Fasting? [facility] (refer to report for specific site)refer to report for address and phone number HAPTOGLOB 1628 209 mg/dL (Abnormal) Range: 34-200 Comments: Performed at: [facility] Lab[address] [id number] Director: Elías Ludwig PhD, Phone: [phone] 14-Oig-283460:41 JEY + Protein Elect, Serum Comments: Is Patient Fasting? [facility] (refer to report for specific site)refer to report for address and phone number NOTE: Comment (Normal) Comments: Protein electrophoresis scan will follow via computer,mail, or gun numberer delivery. JEY RESULT,S Comment (Normal) Comments: No monoclonality detected. A/G RATIO 1.2 (Normal) Range: 0.7-1.7 GLOBULIN, TOTAL 2.9 g/dL (Normal) Range: 2.2-3.9 M-SPIKE (Normal) Comments: Not Observed GAMMA GLOBULIN 0.9 g/dL (Normal) Range: 0.4-1.8 BETA GLOBULIN 1.0 g/dL (Normal) Range: 0.7-1.3 IOYXW-9-YVJI 0.8 g/dL (Normal) Range: 0.4-1.0 GBYBK-2-HDGE 0.3 g/dL (Normal) Range: 0.0-0.4 ALBUMIN 3.3 g/dL (Normal) Range: 2.9-4.4 IMMUNOGL M 165 mg/dL (Normal) Range: 26-217 IMMUNO A 84 mg/dL (Normal) Range: 64-422 IMMUNO G 729 mg/dL (Normal) Range: 700-1600 PROTEIN,TOTAL 6.2 g/dL (Normal) Range: 6.0-8.5 78-Egq-905684:41 Iron+Iron Binding Capacity Comments: Serial Specimen #1, #2 or #3? 1WSt. [facility] Thmfieglrw0454 [place], [address] IRON SATURATION 4.7 % (Abnormal) Range: 15.0-55.0 IRON 25 ug/dL (Abnormal) Range: 50-170 TIBC 531 ug/dL (Abnormal) Range: 250-450 28-Oqv-153614:41 Literberry Lambda Lt Chn Ser. Mon. Comments: Is [...] Comments: Serial Specimen #1, #2 or #3? 1[facility] Ejwkgipwvm2510N[address] [place], [id number] Range: 84-246 :41 Partial Thromboplast Time Comments: [facility] Sihdfpardm5890 [address]i [place], [address] PTT 36.4 s (Abnormal) Range: 24.1-36.2 :41 Prothrombin Time w/INR Comments: [facility] Ebdrjgojdl8728 [address] [place], [address] INR 1.1 (Normal) PROTIME 13.4 s (Normal) Range: 11.7-14.9 :41 Retic Panel Comments: PERIPHERAL BLOOD FLOW CYTOMETRYWJared V[place] [address] [address] [place], [address] IPF 1.3 % (Normal) Range: 1.0-7.9 Comments: [...] Comments: Serial Specimen #1, #2 or #3? 1[facility] Xjphjcoqxm5770 [address] [place], [address] URIC 3.7 mg/dL (Normal) Range: 2.6-6.0 Comments: The drugs N-Acetylcysteine and Metamizole may falsely deressthis assay. :41 Vitamin B12 453 pg/mL (Normal) Comments: [facility] Odtenkprgq9249 [place], [address] Range: 211-911 :52 Fecal Occult Blood , Office (04410) Fecal Occult Blood , Office (Inhouse) positive (Normal) 50-Kte-363661:17 CBC WITH MANUAL DIFF Comments: STANDING ORDER; PATIENT NOT FASTINGPERFORMED BY: [facility] Bxamoc4723 [facility] [id number] Information: [id number] (15781) Hematology Comments: Note: (Normal) Comments: Verified by [...] Range: 3.4-10.8 :56 CBC W/Diff, Automated Comments: [facility] Linezcthmj3107 [address] [place], [place], [address] SMEAR COMMENT COMMENT (Normal) Comments: SLIDE SCANNED [...] WBC Comments: PATIENT NOT FASTINGPERFORMED BY: [facility] Dxohmm8511 [facility] [id number] Information: [id number] (67608) Hematology Comments: Note: (Normal) Comments: Verified by [...] present. WBC 7.5 {x10E3/uL} (Normal) Range: 3.4-10.8 0-Bik-364428:11 CBC W/Diff, Automated Comments: [facility] Wzvltmpnkt2123 [address]. [place], [place], [id number] MICROCYTES 1+ (Normal) HYPOCHROMASIA 2+ (Normal) ANISO [...] 4.2-5.4 WBC 8.7 K/mm3 (Normal) Range: 4.4-11.0 27-Oja-913169:45 HH, Hemoglobin AND Comments: [facility] Qatnysxsov0239 [address] [place], [place], [address] Hematocrit HCT 31.8 % (Abnormal) Range: 37-47 HGB 9.4 g/dL (Abnormal) Range: 12.0-15.0 94-Nbo-846375:53 RC Comments: Non-[facility] - refer to report for specific site [id number] TRANSFUSED PRODUCT: T AND S with Crossmatch, Red Cells COUNT: 2 (Normal) 28-Nqf-504158:53 Type AND Screen Comments: CMV NEG?* NGive When? 09/20/15 9AMIrradiated? NLeukodepleted? YReason for Type AND Screen/Red Cells: ANEMIAWSt. [facility] Sopekdyqhi6088 [place], [address] Antibody Screen NEGATIVE (Normal) BLOOD TYPE GEL A POSITIVE (Normal) 08-Cwt-683166:53 Type AND Screen Comments: CMV NEG?* NGive When? 09/20/15 9AMIrradiated? NLeukodepleted? YReason for Type AND Screen/Red Cells: AN[facility]IAWSt. [facility] Kyqheuenkp6741 [place], [address] Antibody Screen NEGATIVE (Normal) BLOOD TYPE GEL A POSITIVE (Normal) 10-Vmz-464933:51 CBC W/Diff, Automated Comments: [facility] Licwfcqaww1488 [place], [address] MICROCYTES 1+ (Normal) HYPOCHROMASIA 2+ (Normal) [...] 4.2-5.4 WBC 7.6 K/mm3 (Normal) Range: 4.4-11.0 30-Okj-203442:30 CBC W/Diff, Automated Comments: [facility] Pkkmeubutv6774 [address] [place], [place], [address] SMEAR COMMENT (Normal) Comments: 1+ ANISOCYTOSIS Absolute [...] 4.2-5.4 WBC 8.1 K/mm3 (Normal) Range: 4.4-11.0 99-Guu-753737:00 CBC W/Diff, Automated Comments: [facility] Fjuvdcjipq3466 [address]. [place], [place], [address] MICROCYTES 2+ (Normal) HYPOCHROMASIA 3+ (Normal) ANISO [...] 4.2-5.4 WBC 8.6 K/mm3 (Normal) Range: 4.4-11.0 86-Xqc-741444:10 CBC W/Diff, Automated Comments: [facility] Lkstsywzax9356 [address]. [place], [place], [address] SMEAR COMMENT COMMENT (Normal) Comments: SLIDE SCANNED [...] 4.2-5.4 WBC 8.2 K/mm3 (Normal) Range: 4.4-11.0 99-Tva-261720:45 CBC W/Diff, Automated Comments: [facility] Qwvyqreuug0294 [place], [address] OVALOCYTE RARE (Normal) HYPOCHROMASIA 1+ (Normal) ANISO [...] 4.2-5.4 WBC 9.1 K/mm3 (Normal) Range: 4.4-11.0 4-Chs-615813:30 CBC W/Diff, Automated Comments: [facility] Ubwbfmbxjr1289 [address]. [place], [place], [address] SMEAR COMMENT SCANNED (Normal) Comments: 2+ ANISOCYTOSIS, [...] Range: 4.4-11.0 :44 CBC W/Diff, Automated Comments: [facility] Ttgiahsqvl7632 [address] [place], [place], [address] SMEAR COMMENT COMMENT (Normal) Comments: SLIDE SCANNED [...] 4.2-5.4 WBC 8.2 K/mm3 (Normal) Range: 4.4-11.0 5-Dyw-455822:20 HH, Hemoglobin AND Hematocrit Comments: [facility] Wmgvjjflsn1701 [facility] [address] [place], [place], [address] HCT 30.8 % (Abnormal) Range: 37-47 HGB 8.8 g/dL (Abnormal) Range: 12.0-15.0 62-Ujs-232630:30 Prothrombin Time w/INR Comments: [facility] Vgrfvngfnd7174 [facility] [address] [place], [place], [address] INR 1.0 (Normal) PROTIME 13.0 s (Normal) Range: 11.7-14.9 64-Cjk-813692:48 Basic Metabolic Profile (BMP) Comments: [facility] Bgmkvykmnn8617 [facility] [place], [place], [address] GAP 3 (Abnormal) Range: 5-15 CO2 41.0 [...] Range: 70-110 :48 BNP,B-Type NATRIURETIC PEPTIDE Comments: [facility] Pquqlbissr0192 [place], [place], [address] B-TYPE CORBIN PEP 458.2 pg/mL (Abnormal) Range: 0-100 :48 CBC W/Diff, Automated Comments: [facility] Txzsheswqi5246 [address] [place], [place], [address] Absolute Lymph 0.66 {X10_3/ul} (Abnormal) Range: 0.83-4.51 [...] Range: 4.4-11.0 :39 CBC W/Diff, Automated Comments: [facility] Zurrttebwn6353 [place], [address] Absolute Lymph 0.93 {X10_3/ul} (Normal) [...] 4.2-5.4 WBC 9.9 K/mm3 (Normal) Range: 4.4-11.0 4-Wqb-834862:00 Basic Metabolic Profile (BMP) Comments: Serial Specimen #1, #2 or #3? 1'TROP' Serial specimen #1, #2, #3, or #4: 1WSt[facility] Khahigenhw6981 [address]. [place], [place], [address] GAP 5 (Normal) Range: 5-15 CO2 39.0 [...] 126 mg/dLsuggests DIABETES MELLITUS per A.D.A. criteria. 1-Cdl-533982:00 CBC W/Diff, Automated Comments: [facility] Guaqzlqyeu7475 [address] [place], [place], [address] SCHISTOCYTES 1+ (Normal) OVALOCYTE RARE (Normal) HYPOCHROMASIA [...] 4.2-5.4 WBC 9.3 K/mm3 (Normal) Range: 4.4-11.0 7-Ywh-867478:00 CK-MB Quantitative and Index Comments: Serial Specimen #1, #2 or #3? 1'TROP' Serial specimen #1, #2, #3, or #4: [address] [place] [address] Bvyvsxssdy2962 [place], [address] CKRI 2.1 % (Abnormal) Range: 0.0-1.4 Comments: RELATIVE INDEX >1.5% IS PRESUMPTIVELY POSITIVE CPKMB 2.1 ng/mL (Normal) Range: 0.0-5.0 Comments: CK-MB and RI Interpretation MB Relative Index Non-AMI <or= 5 NA Indeterminate > 5 <or= 4 AMI > 5 > 4 CPK TOTAL 100 U/L (Normal) Range: 26-192 0-Yrc-701986:00 Troponin-I Comments: Serial Specimen #1, #2 or #3? 1'TROP' Serial specimen #1, #2, #3, or #4: [address] [place] [address] Rihxynpcwm5066 [place], [address] TROPONIN-I < 0.02 ng/mL (Normal) Comments: TROPONIN-I EXPECTED VALUES <0.05 NEGATIVE 0.06 - 0.59 AT RISK OF [place] > OR = 0.60 SUGGEST [place] 4-Krc-905887:50 Methymalonic Acid, Serum Comments: PATIENT NOT FASTINGPERFORMED BY: [facility]CoHam[facility] CenterNmjwig3629 [facility] [id number] BY: [address] [id number] (61873) Methylmalonic Acid, Serum 278 nmol/L (Normal) Range: 0-378 5-Dsg-247957:50 VITAMIN B-12 (CYANOCOBALAMIN) Comments: PATIENT NOT FASTINGPERFORMED BY: [place] 2451770 [facility] [id number] BY: [address] [id number] (48732) Vitamin B12 692 pg/mL (Normal) Range: 211-946 9-Bbi-116787:50 IRON BINDING CAPACITY Comments: PATIENT NOT FASTINGPERFORMED BY: [place] 2451770 [facility] [id number] BY: [address] [id number] (TIBC) (19725) Iron Saturation 22 % (Normal) Range: 15-55 Iron, Serum 92 ug/dL (Normal) Range: 35-155 UIBC 320 ug/dL (Normal) Range: 150-375 Iron Bind.Cap.(TIBC) 412 ug/dL (Normal) Range: 250-450 3-Ctc-126474:50 FERRITIN (58880) Comments: PATIENT NOT FASTINGPERFORMED BY: [place] 2451770 [facility] [id number] BY: [address] [id number] Ferritin, Serum 72 ng/mL (Normal) Range: 15-150 3-Iig-576220:50 CBC, PLATELETS & AUT DIFF Comments: PATIENT NOT FASTINGPERFORMED BY: [place] 2451770 [facility] [id number] BY: [address] [id number] Information: [id number] (28703) Immature Grans (Abs) 0.0 {x10E3/uL} (Normal) Range: [...] 3.77-5.28 WBC 9.0 {x10E3/uL} (Normal) Range: 3.4-10.8 06-Wqx-274028:06 Iron Binding Capacity Comments: PATIENT WAS FASTINGPERFORMED BY: [facility] Qifbiy7666 [facility] [id number] BY: [facility] [address] [id number] Information: [id number] (TIBC) (44289) Iron Saturation 4 % (Abnormal) Range: 15-55 Iron, Serum 17 ug/dL (Abnormal) Range: 35-155 UIBC 419 ug/dL (Abnormal) Range: 150-375 Iron Bind.Cap.(TIBC) 436 ug/dL (Normal) Range: 250-450 46-Vhz-688870:06 RETICULOCYTE COUNT (62779) Comments: PATIENT WAS FASTINGPERFORMED BY: [place] Oxbboj3517 [facility] [id number] BY: [address] [id number] Reticulocyte Count 1.2 % (Normal) Range: 0.6-2.6 26-Igd-957197:06 LDH (LD) (LACTATE Comments: PATIENT WAS FASTINGPERFORMED BY: [facility] Igebbg3117 [facility] [id number] BY: [address] [id number] DEHYDROGENASE) (94226) LDH 284 [iU]/L (Abnormal) Range: 119-226 83-Pxt-763441:06 Vitamin B-12 Comments: PATIENT WAS FASTINGPERFORMED BY: Stoke Ehmkpc0878 [facility] [id number] BY: [address] [id number] (cyanocobalamin) (95546) Vitamin B12 452 pg/mL (Normal) Range: 211-946 07-Khz-946161:06 Ferritin (65977) Comments: PATIENT WAS FASTINGPERFORMED BY: Stoke Xcuskg2121 [facility] [id number] BY: [address] [id number] Ferritin, Serum 15 ng/mL (Normal) Range: 15-150 47-Vvm-488271:06 Folic Acid Serum (48360) Comments: PATIENT WAS FASTINGPERFORMED BY: Stoke Uhbwgw1520 [facility] [id number] BY: [address] [id number] Folate (Folic Acid), Serum 16.7 ng/mL (Normal) Comments: A serum folate concentration of less than 3.1 ng/mL isconsidered to represent clinical deficiency. 46-Mdc-171729:06 Methymalonic Acid, Serum Comments: PATIENT WAS FASTINGPERFORMED BY: [facility]6370 [facility] [id number] BY: [address] [id number] (39642) Methylmalonic Acid, Serum 321 nmol/L (Normal) Range: 0-378 83-Qou-624326:22 TSH (37560) Comments: PATIENT NOT FASTINGPERFORMED BY: [facility]6370 [facility] [id number] TSH 1.540 {uIU/mL} (Normal) Range: 0.450-4.500 43-Esl-560852:22 METABOLIC PANEL, COMPREHENSIVE Comments: PATIENT NOT FASTINGPERFORMED BY: [facility]6370 [facility] [id number] (34641) ALT (SGPT) 13 [iU]/L (Normal) Range: 0-32 [...] Glucose, Serum 99 mg/dL (Normal) Range: 65-99 49-Qhv-668923:22 CBC W/AUTO DIFF WBC Comments: PATIENT NOT FASTINGPERFORMED BY: NERIS [facility] Ruldnl5106 Fei [facility] [id number] Information: [id number] (46208) Immature Grans (Abs) 0.0 {x10E3/uL} (Normal) Range: [...] 3.77-5.28 WBC 8.4 {x10E3/uL} (Normal) Range: 3.4-10.8 22-Dcg-703235:22 Lipid Profile Comments: Test performed at:[facility] Zggklsoecw0596 [place] [address] VLDL 17 mg/dL (Normal) Range: 5-40 LDL [...] 200-240 mg/dL Borderline >240 mg/dL High Risk 21-Ezh-604344:22 Liver Profile Comments: Test performed at:[facility] Uontartyei4852 [facility] [place] [address] D BILI 0.09 mg/dL (Normal) Range: 0.00-0.30 T BILI 0.30 mg/dL (Normal) Range: 0.20-1.00 ALT 30 U/L (Normal) Range: 12-78 ALK P 96 U/L (Normal) Range: 50-136 AST 29 U/L (Normal) Range: 15-37 GLOB 3.3 g/dL (Normal) Range: 2.3-3.5 ALB 3.5 g/dL (Normal) Range: 3.4-5.0 T PROT 6.8 g/dL (Normal) Range: 6.4-8.2 6-Xmu-045832:58 Miscellaneous Lab Procedure Comments: RUN LOWEST TESTComments: [id number] URINE TOXICOLOGYTest(s) Ordered: [id number] URINE TOXICOLOGYTest performed at:[facility] Fhyhyszviy5409 [facility] [place], [place] [address] [facility] Comments: [id number] 6+OXYCODONE-BUND (ng/mL)DRUG RESULT SCREEN CUTOFF____ Amphetamines,Urine Negat LAB (Normal) terri ng/mL 1000Amphetamine test includes Amphetamine and Methamphetamine.Barbiturates Negative ng/mL 200Benzodiazepines Negative ng/mL 200Cannabinoid TEST Negative ng/mL 20Cocaine (Metab) Negative ng/mL 300Opiates Negative ng/mL 300 Opiates test includes Codeine, Morphine, Hydromorphone, [place] codone.Oxycodone/Oxymorphone,Urine Positive ng/mL 300 Test includes Oxydodone and Oxymorphone.Oxycodone Positive Oxycodone (GC/MS) 942 ng/mL 300Oxymorphone Positive Oxymorphone (GC/MS) 1150 ng/mL 300 TESTING PERFORMED AT [facility]. ORIGINAL REPORT ON FILE IN LAB C [facility] ADDITIONAL TEST SITE INFORMATION. 3-Mis-169166:58 Urine Drug Screen (VISTA) Comments: Comments: [id number] URINE TOXICOLOGYList of Drugs Taken or Suspected? UNKNOWNTest performed at:[facility] Neqrrmuzwj3645 [place] [address] THC NEGATIVE (Normal) PCP NEGATIVE [...] TESTING MUST BE ORDERED SEPARATELY. USE TESTMNEMONIC: [facility] 27-Cbr-958342:19 Anti-dsDNA Ab Comments: Test performed at:[facility] Avlqnlsncs3358 [place] [address] dsDNA AB 4 {IU/mL} (Normal) Range: 0-9 Comments: Negative <5 Equivocal 5 - 9 Positive >9Performed at: - [facility] Bvpioo9185 [place], [place] [id number] D irector: Johnathan Junior PhD, Phone: [phone] 32-Krw-226686:19 CBC W/Diff, Automated Comments: Test performed at:[facility] Ecfrjrnmkf3883 [place], [place] [address] Absolute Lymph 0.78 {X10_3/ul} (Abnormal) Range: 0.83-4.51 [...] 4.2-5.4 WBC 9.5 K/mm3 (Normal) Range: 4.4-11.0 41-Mlt-465841:19 Complement C3 Comments: Test performed at:[facility] Mbwlgyjpmk2082 [place] [address] COMP C3 135 (Normal) Range: 90-180 Comments: Result Units: mg/dL AdultPerformed at: - [facility] [address] [id number] Director: Johnathan Junior PhD, Phone: [phone] 85-Tdy-988940:19 Complement C4 Comments: Test performed at:[facility] [address] [place] [address] COMP C4 27 (Normal) Range: 9-36 Comments: Result Units: mg/dL Adult 35-Erz-457003:19 Comprehensive Metabolic Profil Comments: Test performed at:[facility] Bjvsxvpbwz7051 [place] [address] GAP 8 (Normal) Range: 5-15 [...] 7-18 GLU 92 mg/dL (Normal) Range: 70-110 01-Ilx-950089:19 Protein+Creatinine Ratio,Urine Comments: Test performed at:[facility] Qxyltquues9951 [address] [place], [place] [address] PROT:CRE RATIO 334 {mg/g_CRE} (Abnormal) Range: 0-200 PROTEIN,UR.RAN. 32.8 mg/dL (Abnormal) UR CREAT 98.0 mg/dL (Normal) 31-Jzw-223982:19 Urinalysis, Complete Comments: How was Urine Obtained? CLEAN CATCHTest performed at:[facility] Aaikunovjy7852 [address] [place], [place] [address] HYALINE CAST 5-10 SEEN {/lpf} (Normal) Range: [...] CLARITY Sl. Cloudy (Normal) COLOR Yellow (Normal) 13-Dtb-537584:41 CBC With Differential/Platelet Comments: PATIENT NOT FASTINGPERFORMED BY: [facility]CoHam[facility] CenterUndmlj0322 [facility] [id number] Information: [id number] Immature Grans (Abs) 0.0 {x10E3/uL} (Normal) Range: [...] Basic Metabolic Profile (BMP) Comments: Test performed at:[facility] Aklwrsuojo5503 [place] [address] GAP 3 (Abnormal) Range: 5-15 CO2 33.0 mmol/L (Abnormal) Range: 21.0-32.0 CL 101 mmol/L (Normal) Range: 98-107 K 3.9 mmol/L (Normal) Range: 3.5-5.1 NA 137 mmol/L (Normal) Range: 136-145 CA 8.3 mg/dL (Abnormal) Range: 8.5-10.1 BUN/CRE 26.3 {RATIO} (Abnormal) Range: 10-20 CREAT,SERUM 0.8 mg/dL (Normal) Range: 0.6-1.0 BUN 21 mg/dL (Abnormal) Range: 7-18 GLU 85 mg/dL (Normal) Range: 70-110 76-Rcl-828610:43 CBC W/Diff, Automated Comments: Test performed at:[facility] Mwacyngbpq9558 [facility] [place] [address] Absolute Lymph 0.85 {X10_3/ul} (Normal) [...] #1, #2, #3, or #4: 1Test performed at:[facility] Dvoffnkrat9515 [facility] [address]. [place], [place] [address] GAP 5 (Normal) Range: 5-15 CO2 38.0 [...] :40 CBC W/Diff, Automated Comments: Test performed at:[facility] Mzahkcxqbi3653 [place] [address] Absolute Lymph 1.10 {X10_3/ul} (Normal) Range: 0.83-4.51 [...] #1, #2, #3, or #4: 1Test performed at:[facility] [address] [place] [address] CPKMB 1.4 ng/mL (Normal) Range: 0.0-5.0 Comments: CK-MB and RI Interpretation MB Relative Index Non-AMI <or= 5 NA Indeterminate > 5 <or= 4 AMI > 5 > 4 CPK TOTAL 133 U/L (Normal) Range: 26-192 :40 Troponin-I Comments: Serial Specimen #1, #2 or #3? 1'TROP' Serial specimen #1, #2, #3, or #4: 1Test performed at:[facility] [address] [place] [address] TROPONIN-I < 0.02 ng/mL (Normal) Comments: TROPONIN-I EXPECTED VALUES <0.05 NEGATIVE 0.06 - 0.59 AT RISK OF [place] > OR = 0.60 SUGGEST [place] :30 Basic Metabolic Profile (BMP) Comments: Test performed at:[facility] [address]lr[address] [place] [address] GAP 6 (Normal) Range: 5-15 [...] :30 CBC W/Diff, Automated Comments: Test performed at:[facility] Jfkbbwcvsh0513 [facility] [place] [address] Absolute Lymph 0.79 {X10_3/ul} (Abnormal) [...] 4.2-5.4 WBC 10.2 K/mm3 (Normal) Range: 4.4-11.0 38-Ndf-248095:16 Lipid Profile Comments: Test performed at:[facility] Grdajznmcu1059 [facility] [place] [address] VLDL 16 mg/dL (Normal) Range: [...] 200-240 mg/dL Borderline >240 mg/dL High Risk 82-Gpf-283951:16 Liver Profile Comments: Test performed at:[facility] Hutozxildb7283 [place], [place] [address] D BILI 0.09 mg/dL (Normal) Range: 0.00-0.30 T BILI 0.30 mg/dL (Normal) Range: 0.00-4.00 ALT 29 U/L (Normal) Range: 12-78 ALK P 116 U/L (Normal) Range: 50-136 AST 29 U/L (Normal) Range: 15-37 GLOB 3.6 g/dL (Normal) Range: 2.7-4.2 ALB 3.3 g/dL (Abnormal) Range: 3.4-5.0 T PROT 6.9 g/dL (Normal) Range: 6.4-8.2 55-Xiw-338123:50 IRON BINDING CAPACITY (TIBC) Comments: PATIENT NOT FASTINGPERFORMED BY: [employer] [facility] [id number] (31460) Iron Saturation 13 % (Abnormal) Range: 15-55 Iron, Serum 51 ug/dL (Normal) Range: 35-155 UIBC 328 ug/dL (Normal) Range: 150-375 Iron Bind.Cap.(TIBC) 379 ug/dL (Normal) Range: 250-450 04-Obu-957439:50 FERRITIN (13270) Comments: PATIENT NOT FASTINGPERFORMED BY: [facility] CenterXvrwql0994 [facility] [id number] Ferritin, Serum 33 ng/mL (Normal) Range: 15-150 93-Qde-949079:50 CBC W/AUTO DIFF WBC Comments: PATIENT NOT FASTINGPERFORMED BY: [facility] CenterBiucng1670 [facility] [id number] Information: [id number] ([id number]) Immature Grans (Abs) 0.0 {x10E3/uL} (Normal) Range: [...] 3.77-5.28 WBC 11.0 {x10E3/uL} (Abnormal) Range: 3.4-10.8 44-Lzl-467549:59 FECAL OCCULT- Tubes sent home ([id number]) FECAL OCCULT HGB ASSAY, QUAL, 1-3 SIMULTANEOU negative (Normal) 32-Kvb-758875:10 VITAMIN B-12 (CYANOCOBALAMIN) Comments: PATIENT NOT FASTINGPERFORMED BY: [facility] [id number] ([id number]) Vitamin B12 528 pg/mL (Normal) Range: 211-946 23-Tma-070938:10 RETICULOCYTE COUNT MANUL Comments: PATIENT NOT FASTINGPERFORMED BY: NERIS Stoke [id number] [facility] [id number] ([id number]) Reticulocyte Count 2.9 % (Abnormal) Range: 0.6-2.6 12-Yqp-970926:10 LDH (LD) (LACTATE DEHYDROGENASE) Comments: PATIENT NOT FASTINGPERFORMED BY: [facility] [id number] ([id number]) LDH 308 [iU]/L (Abnormal) Range: 119-226 35-Vhu-049608:10 IRON BINDING CAPACITY (TIBC) Comments: PATIENT NOT FASTINGPERFORMED BY: [facility] [id number] ([id number]) Iron Saturation 26 % (Normal) Range: 15-55 Iron, Serum 104 ug/dL (Normal) Range: 35-155 UIBC 298 ug/dL (Normal) Range: 150-375 Iron Bind.Cap.(TIBC) 402 ug/dL (Normal) Range: 250-450 83-Gew-269163:10 FERRITIN (54442) Comments: PATIENT NOT FASTINGPERFORMED BY: [facility] [id number] Ferritin, Serum 47 ng/mL (Normal) Range: 15-150 10-Xsi-482456:10 CBC, PLATELETS & AUT DIFF Comments: PATIENT NOT FASTINGPERFORMED BY: [facility]6370 [facility] [id number] Information: [id number] (43464) Immature Grans (Abs) 0.0 {x10E3/uL} (Normal) Range: [...] 3.77-5.28 WBC 7.2 {x10E3/uL} (Normal) Range: 3.4-10.8 13-Tjm-912307:06 CBC-Complete Blood Cnt No Diff Comments: Test performed at:[facility] [address] [place], [place] [address] MPV 10.6 fL (Normal) Range: 6.2-12.0 PLT [...] 4.2-5.4 WBC 8.2 K/mm3 (Normal) Range: 4.4-11.0 42-Sxq-230379:25 Basic Metabolic Profile (BMP) Comments: Serial Specimen #1, #2 or #3? 1'TROP' Serial specimen #1, #2, #3, or #4: 1Test performed at:[facility] [address] [place] [address] GAP 3 (Abnormal) Range: 5-15 [...] 126 mg/dLsuggests DIABETES MELLITUS per A.D.A. criteria. 37-Jrq-247708:25 CBC W/Diff, Automated Comments: Test performed at:[facility] Si[address]ungq[address] [facility] [place] [address] Absolute Lymph 1.07 {X10_3/ul} (Normal) [...] 4.2-5.4 WBC 7.0 K/mm3 (Normal) Range: 4.4-11.0 47-Bym-848053:25 CK-MB Quantitative and Index Comments: Serial Specimen #1, #2 or #3? 1'TROP' Serial specimen #1, #2, #3, or #4: 1Test performed at:[facility] [address] [place] [address] CPKMB 1.8 ng/mL (Normal) Range: 0.0-5.0 Comments: CK-MB and RI Interpretation MB Relative Index Non-AMI <or= 5 NA Indeterminate > 5 <or= 4 AMI > 5 > 4 CPK TOTAL 165 U/L (Normal) Range: 26-192 84-Iev-675734:25 Troponin-I Comments: Serial Specimen #1, #2 or #3? 1'TROP' Serial specimen #1, #2, #3, or #4: 1Test performed at:[facility] [address] [place] [address] TROPONIN-I < 0.02 ng/mL (Normal) Comments: TROPONIN-I EXPECTED VALUES <0.05 NEGATIVE 0.06 - 0.59 AT RISK OF [place] > OR = 0.60 SUGGEST [place] 77-Dsj-638414:04 BMP GAP 2 (Abnormal) Range: 5-15 CO2 [...] Result Units: mg/dL AdultPerformed at: - [facility] [address] [id number] Director: Johnathan uJnior PhD, Phone: [phone] :[phone] C4 26 (Normal) Range: 9-36 Comments: [...] - 9Positive >9Performed at: CB - [facility] [address] [id number] Director: Johnathan Junior PhD, Phone: [phone] :[phone] PROCRER tPROCRER 392 {mg/g_CRE} (Abnormal) Range: 0-200 PROUR 10.0 mg/dL (Normal) CREU 25.5 mg/dL (Normal) :00 [facility] Comments: How was Urine Obtained? [...] (Normal) :54 CBC, PLATELETS & MANUAL DIFF (02490) Comments: recheck 03-08-14:11 B12 817 pg/mL (Normal) [...] Please note reference interval changePerformed at: - [address] [id number] Director: Ciaran Valles MD, Phone: [phone] :[phone] RETIC retIPF 1.5 % (Normal) Range: [...] or Folic Acid Supplements? N Range: 250-450 02-Xas-981428:11 TS Comments: CMV NEG?* NGive When? 02/22@0800Irradiated? NLeukodepleted? YReason for Type & Screen/Red Cells: ANEMIA SC3 NEGATIVE (Normal) SC2 NEGATIVE (Normal) SC1 NEGATIVE (Normal) ABS NEGATIVE (Normal) BT A POSITIVE (Normal) 84-Yed-802476:25 FECAL OCCULT- Tubes sent home (69277) FECAL OCCULT HGB ASSAY, QUAL, negative (Normal) 1-3 [facility] :08 HCT 29.9 % (Abnormal) Range: [...] 7-18 GLU 88 mg/dL (Normal) Range: 70-110 7-Ibo-096031:11 BTNP 235.3 pg/mL (Abnormal) Range: 0-100 :11 [...] CHOL 140 mg/dL (Normal) Comments: <200 mg/dL Udqvyktjk047-456 mg/dL Borderline>240 mg/dL High Risk TRIG 61 [...] 3.4-5.0 TPROT 6.8 g/dL (Normal) Range: 6.4-8.2 3-Gac-374014:19 Metabolic Panel, Basic Comments: PATIENT NOT FASTINGPERFORMED BY: NERIS [facility] AcademyCoHam[facility] CenterSsxgqr4184 [facility] [id number] Information: [id number] (55492) Calcium, Serum 9.1 mg/dL (Normal) Range: 8.6-10.2 [...] Glucose, Serum 75 mg/dL (Normal) Range: 65-99 98-Bil-579587:39 CBC With Differential/Platelet Comments: PERFORMED BY: NERIS [facility]CoHam[facility] Health CenterUzvejk4441 [facility] [id number] Information: 08/09@7AM 08/10@7AM Immature Grans (Abs) 0.0 [...] 3.77-5.28 WBC 8.9 {x10E3/uL} (Normal) Range: 4.0-10.5 46-Iju-771002:39 Comp. Metabolic Panel (14) Comments: PERFORMED BY: [facility]Co[facility] CenterBbwdyv7479 [facility] [id number] ALT (SGPT) 27 [iU]/L (Normal) Range: 0-32 [...] 65-99 :39 Creatinine Clearance Comments: PERFORMED BY: [employer] [facility] [id number] Creatinine Clearance 95 mL/min (Normal) Range: 88-128 Comments: The above range is based on 1.73 square meter average body surfacearea. Creatinine, Ur 24hr 1035.0 {mg/24_hr} Range: 800.0-1800.0 (Normal) Creatinine, Urine 57.5 mg/dL (Normal) Range: 15.0-278.0 Magnesium, Serum 1.9 mg/dL (Normal) Comments: PERFORMED BY: [employer] [facility] [id number] :39 Range: 1.6-2.6 :39 Microalbumin, 24 hr Urine Comments: PERFORMED BY: [facility] [id number] Microalbumin, Urine 83.6 ug/mL (Abnormal) Range: 0.0-17.0 Microalbumin,mg/day 150.5 {mg/day} (Abnormal) Phosphorus, Serum 4.0 mg/dL (Normal) Comments: PERFORMED BY: [employer] [facility] [id number] 3:39 Range: 2.5-4.5 :39 Protein Electro, Random Urine Comments: PERFORMED BY: [facility] [id number] Please note: SPRCS (Normal) Comments: Protein electrophoresis scan will follow via computer, mail, orcourier delivery. Gamma Globulin, U 7.4 % (Normal) M-[place], % Not Observed % (Normal) Wyvul-1-Dmkvcwzf, U 7.6 % (Normal) Beta Globulin, U 15.9 % (Normal) Albumin, U 64.4 % (Normal) Cngfb-8-Fpufdmht, U 4.7 % (Normal) Protein,Total,Urine 22.6 mg/dL (Abnormal) Range: 0.0-15.0 76-Qlj-529176:39 Protein Electro.,S Comments: PERFORMED BY: [facility] [id number] A/G Ratio 1.1 (Normal) Range: 0.7-2.0 Please note: SPRCS (Normal) Comments: Protein electrophoresis scan will follow via computer, mail, orcourier delivery. Globulin, Total 2.9 g/dL (Normal) Range: 2.0-4.5 M-[place] Not Observed g/dL (Normal) Gamma Globulin 0.9 g/dL (Normal) Range: 0.5-1.6 Uqkos-3-Dctmjdff 0.9 g/dL (Normal) Range: 0.4-1.2 Beta Globulin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 Letter Indication: ERYTHEMATOSUS, LUPUS Hypertension, renal disease [...] LUMBAR INTERVERTEBRAL DISC WITHOUT MYELOPATHY : Reviewed Sales Representative [facility] Letter 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 Hypercholesteremia : Follow up in 3 months gen med Indication: Hypercholesteremia Chronic kidney disease (CKD), stage 2 (mild) : Eprescribed prescriptions (G8553) Indication: Chronic kidney disease (CKD), 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), stage 2 (mild) : consultation letter Indication: Chronic kidney disease (CKD), stage 2 (mild) COPD, moderate : Reviewed Sales Representative [facility] Letter Indication: COPD, moderate Hypertension, renal disease : Continue Current Prescription(s) Indication: Hypertension, renal disease Hypertension, renal disease : HTN/CAD Red Flags Indication: Hypertension, renal disease Hypercholesteremia : Cholesterol mgmt Indication: Hypercholesteremia Anemia, unspecified : Reviewed Lab Indication: Anemia, unspecified Anemia, unspecified : Reviewed Diagnostic Tests Indication: Anemia, unspecified Anemia, unspecified : Reviewed Sales Representative [facility] Letter Indication: Anemia, unspecified COPD, moderate : Reviewed Sales Representative [facility] Letter: dr ascencio Indication: COPD, moderate COPD, [...] Indication: Anemia, unspecified Anemia, unspecified : Reviewed Sales Representative [facility] Letter Indication: Anemia, unspecified Anemia, unspecified : Anemia: diagnosis and treatment Indication: Anemia, unspecified Mitral valve failure : Reviewed Sales Representative [facility] Letter Indication: Mitral valve failure Encounter for [...] Artery Disease Coronary Artery Disease : Reviewed Sales Representative [facility] Letter Indication: Coronary Artery Disease COPD, moderate : Continue Current Prescription(s) Indication: COPD, moderate Hypercholesteremia : Reviewed Lab Indication: Hypercholesteremia Chronic kidney disease (CKD), stage 2 (mild) : Reviewed Sales Representative [facility] Letter Indication: Chronic kidney disease (CKD), stage 2 (mild) Hypertension, renal disease : Follow up in 3 months Indication: Hypertension, renal disease Hypertension, renal disease : Continue Current Prescription(s) Indication: Hypertension, renal disease ERYTHEMATOSUS, LUPUS : Reviewed Sales Representative [facility] Letter Indication: ERYTHEMATOSUS, LUPUS Hypertension, renal disease [...] cyst (Renamed from Kidney cysts) : Reviewed Sales Representative [facility] Letter Indication: Renal cyst (Renamed from Kidney cysts) Hypertension, renal disease : Allergies: allergen Indication: Hypertension, renal disease Hypertension, renal disease : Follow up in 2-3 weeks Indication: Hypertension, renal disease Hypertension, renal disease : Reviewed Lab Indication: Hypertension, renal disease Hypertension, renal disease : High Blood Pressure (Essential Hypertension) *: blood pressure problems Indication: Hypertension, renal disease Hypertension, renal disease : Reviewed Sales Representative [facility] Letter Indication: Hypertension, renal disease Hypertension, renal [...] Tests Indication: Osteopenia ERYTHEMATOSUS, LUPUS : Reviewed Sales Representative [facility] Letter Indication: ERYTHEMATOSUS, LUPUS Hypertension, renal disease [...] Hypertension, renal disease ERYTHEMATOSUS, LUPUS : Reviewed Sales Representative [facility] Letter Indication: ERYTHEMATOSUS, LUPUS Hypercholesteremia : *Cholesterol [...] exacerbation of COPD with asthma : Reviewed Sales Representative [facility] Letter Indication: Acute exacerbation of COPD with [...] Indication: Osteopenia SYMPTOM, ABNORMALITY, GAIT : Reviewed Sales Representative [facility] Letter Indication: SYMPTOM, ABNORMALITY, GAIT Hypercholesteremia : [...] Indication: ERYTHEMATOSUS, LUPUS ERYTHEMATOSUS, LUPUS : Reviewed Sales Representative [facility] Letter Indication: ERYTHEMATOSUS, LUPUS Hypertension, renal disease [...] Spinal stenosis of lumbar region : Reviewed Sales Representative [facility] Letter Indication: Spinal stenosis of lumbar region [...] Cervical strain Planned Observations URINALYSIS, W/ MICRO ([id number])Indication: Hypertension, renal disease On: :09 Request MICROALBUMIN: CREATININE RATIO ([id number]) AND ([id number])Indication: Hypertension, renal disease On: :09 Request METABOLIC PANEL, COMPREHENSIVE ([id number])Indication: Hypertension, renal disease On: :09 Request CBC W/AUTO DIFF WBC ([id number])Indication: Hypertension, renal disease On: : Request TSH ([id number])Indication: Sinus bradycardia On: :08 Request CALCIFEDIOL ([id number])Indication: Vitamin D deficiency On: :07 Request VITAMIN B-12 (CYANOCOBALAMIN) ([id number])Indication: Other vitamin B12 deficiency anemia On: : Request LIPID PANEL ([id number])Indication: Hypercholesteremia On: :07 Request CBC WITH MANUAL DIFF ([id number])Indication: Other vitamin B12 deficiency anemia On: :20 Request VITAMIN B-12 (CYANOCOBALAMIN) ([id number])Indication: Other vitamin B12 deficiency anemia On: :20 Request Metabolic Panel, Basic ([id number])Indication: Hypopotassemia On: :09 Request Comments: re check one week VITAMIN B-12 (CYANOCOBALAMIN) ([id number])Indication: Other vitamin B12 deficiency anemia On: :48 Request LIPID PANEL (32211)Indication: Hypertension, renal disease On: :46 Request MAGNESIUM ([id number])Indication: Hypopotassemia On: :44 Request POTASSIUM SERUM (79110)Indication: Hypopotassemia On: :44 Request TSH ([id number])Indication: Sinus bradycardia On: :35 Request CALCIFEDIOL (14643)Indication: Vitamin D deficiency On: :35 Request LIPID PANEL ([id number])Indication: Hypercholesteremia On: 60-Hmk-700200:35 Request URINALYSIS, W/ MICRO ([id number])Indication: Hypertension with heart disease On: 18-Vvd-266248:20 Request MICROALBUMIN: CREATININE RATIO (79153) AND ([id number])Indication: Hypertension with heart disease On: 20-Ajd-499599:20 Request TSH (41212)Indication: Hypercholesteremia On: : Request URINALYSIS, W/ MICRO ([id number])Indication: Hypertension, renal disease On: : Request MICROALBUMIN: CREATININE RATIO (79073) AND ([id number])Indication: Hypertension, renal disease On: : Request METABOLIC PANEL, COMPREHENSIVE ([id number])Indication: Hypertension, renal disease On: : Request LIPID PANEL ([id number])Indication: Hypercholesteremia On: : Request CBC W/AUTO DIFF WBC ([id number])Indication: Hypertension, renal disease On: : Request VITAMIN B-12 (CYANOCOBALAMIN) ([id number])Indication: Other vitamin B12 deficiency anemia On: :19 Request CBC WITH MANUAL DIFF ([id number])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 On: 17-Feb-2016 Request Comments: STANDING ORDER CBC WITH MANUAL DIFF ([id number])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 On: 03-Feb-2016 Request Comments: STANDING ORDER CBC WITH MANUAL DIFF ([id number])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 On: 20-Jan-2016 Request Comments: STANDING ORDER CBC WITH MANUAL DIFF ([id number])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 On: 06-Jan-2016 Request Comments: STANDING ORDER CBC WITH MANUAL DIFF ([id number])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 On: 23-Dec-2015 Request Comments: STANDING ORDER CBC WITH MANUAL DIFF ([id number])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 On: 09-Dec-2015 Request Comments: STANDING ORDER CBC WITH MANUAL DIFF ([id number])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 On: 25-Nov-2015 Request Comments: STANDING ORDER CBC W/AUTO DIFF WBC ([id number])Indication: Anemia, unspecified On: 23-Nov-2015 Request CBC W/AUTO DIFF WBC ([id number])Indication: Anemia, unspecified On: 20-Nov-2015 Request CBC W/AUTO DIFF WBC ([id number])Indication: Anemia, unspecified On: 17-Nov-2015 Request CBC W/AUTO DIFF WBC ([id number])Indication: Anemia, unspecified On: 14-Nov-2015 Request CBC W/AUTO DIFF WBC ([id number])Indication: Anemia, unspecified On: 11-Nov-2015 Request CBC WITH MANUAL DIFF ([id number])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 On: 11-Nov-2015 Request Comments: STANDING ORDER CBC W/AUTO DIFF WBC ([id number])Indication: Anemia, unspecified On: 08-Nov-2015 Request CBC W/AUTO DIFF WBC ([id number])Indication: Anemia, unspecified On: 05-Nov-2015 Request CBC W/AUTO DIFF WBC ([id number])Indication: Anemia, unspecified On: 02-Nov-2015 Request CBC W/AUTO DIFF WBC ([id number])Indication: Anemia, unspecified On: 30-Oct-2015 Request CBC WITH MANUAL DIFF ([id number])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 On: 28-Oct-2015 Request Comments: STANDING ORDER CBC W/AUTO DIFF WBC ([id number])Indication: Anemia, unspecified On: 27-Oct-2015 Request CBC W/AUTO DIFF WBC ([id number])Indication: Anemia, unspecified On: 24-Oct-2015 Request CBC W/AUTO DIFF WBC ([id number])Indication: Anemia, unspecified On: 21-Oct-2015 Request CBC W/AUTO DIFF WBC ([id number])Indication: Anemia, unspecified On: 18-Oct-2015 Request CBC W/AUTO DIFF WBC ([id number])Indication: Anemia, unspecified On: 15-Oct-2015 Request CBC W/AUTO DIFF WBC ([id number])Indication: Anemia, unspecified On: 12-Oct-2015 Request CBC WITH MANUAL DIFF ([id number])Indication: Unspecified Diagnosis On: 50-Foo-224496:43 Request CBC W/AUTO DIFF WBC ([id number])Indication: Anemia, unspecified On: 09-Oct-2015 Request FECAL OCCULT- Tubes sent home ([id number])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 On: 06-Eri-823254:23 Request CBC W/AUTO DIFF WBC ([id number])Indication: Anemia, unspecified On: 06-Oct-2015 Request CBC W/AUTO DIFF WBC ([id number])Indication: Anemia, unspecified On: 03-Oct-2015 Request CBC W/AUTO DIFF WBC ([id number])Indication: Anemia, unspecified On: 30-Sep-2015 Request CBC WITH MANUAL DIFF ([id number])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 On: 30-Sep-2015 Request Comments: STANDING ORDER CBC W/AUTO DIFF WBC ([id number])Indication: Anemia, unspecified On: 27-Sep-2015 Request CBC W/AUTO DIFF WBC ([id number])Indication: Anemia, unspecified On: 24-Sep-2015 Request CBC W/AUTO DIFF WBC ([id number])Indication: Anemia, unspecified On: 21-Sep-2015 Request HEMOGLOBIN & HEMATOCRITIndication: Low hemoglobin and low hematocrit On: 34-Ttp-998029:44 Request CBC W/AUTO DIFF WBC ([id number])Indication: Anemia, unspecified On: 18-Sep-2015 Request CBC WITH MANUAL DIFF ([id number])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 On: 32-Kpb-590078:26 Request Comments: STANDING ORDER CBC W/AUTO DIFF WBC ([id number])Indication: Anemia, unspecified On: 15-Sep-2015 Request CBC W/AUTO DIFF WBC ([id number])Indication: Anemia, unspecified On: 12-Sep-2015 Request CBC W/AUTO DIFF WBC ([id number])Indication: Anemia, unspecified On: 09-Sep-2015 Request CBC W/AUTO DIFF WBC ([id number])Indication: Anemia, unspecified On: 06-Sep-2015 Request CBC W/AUTO DIFF WBC ([id number])Indication: Anemia, unspecified On: 03-Sep-2015 Request CBC W/AUTO DIFF WBC ([id number])Indication: Anemia, unspecified On: 31-Aug-2015 Request CBC W/AUTO DIFF WBC ([id number])Indication: Anemia, unspecified On: 2-Iix-454171:38 Request Urine Protein Electrophoresis (UPEP) ([id number])Indication: Chronic kidney disease (CKD), stage 2 (mild) On: 32-Drj-527733:18 Request Serum Protein Electrophoresis (SPEP) ([id number])Indication: Chronic kidney disease (CKD), stage 2 (mild) On: 41-Dxc-682137:18 Request MAGNESIUM ([id number])Indication: Chronic kidney disease (CKD), stage 2 (mild) On: 82-Zco-050461:18 Request PHOSPHORUS ([id number])Indication: Chronic kidney disease (CKD), stage 2 (mild) On: 47-Nhn-175050:18 Request CALCIFEDIOL ([id number])Indication: Chronic kidney disease (CKD), stage 2 (mild) On: 23-Axc-492972:18 Request PARATHORMONE ([id number])Indication: Chronic kidney disease (CKD), stage 2 (mild) On: 32-Scs-840310:18 Request TSH ([id number])Indication: CAD in [place] artery On: :16 Request URINALYSIS, W/ MICRO ([id number])Indication: Hypertension, renal disease On: :16 Request MICROALBUMIN: CREATININE RATIO ([id number]) AND ([id number])Indication: Hypertension, renal disease On: :16 Request METABOLIC PANEL, COMPREHENSIVE ([id number])Indication: Hypertension, renal disease On: :16 Request LIPID PANEL (79164)Indication: Hypercholesteremia On: :16 Request CBC W/AUTO DIFF WBC ([id number])Indication: Hypertension, renal disease On: 33-Jsq-387465:16 Request HCT (Hematocrit) ([id number])Indication: Abnormal blood chemistry On: 7-Xgk-860794:00 Request HGB (HEMOGLOBIN) ([id number])Indication: Abnormal blood chemistry On: 7-Rvn-201508:00 Request IRON ([id number])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 On: 36-Veo-483502:32 Request Iron ([id number])Indication: Anemia, unspecified On: 09-Juk-004646:31 Request CBC W/AUTO DIFF WBC ([id number])Indication: Anemia, unspecified On: 68-Rad-752870:37 Request IRON ([id number])Indication: Anemia, unspecified On: 40-Iqz-419597:41 Request IRON ([id number])Indication: Anemia, unspecified On: 95-Wht-530209:59 Request CBC, PLATELETS & MANUAL DIFF ([id number])Indication: Anemia, unspecified On: 1-Yzu-531212:54 Request Comments: recheck 03-08-14 LIAM TEST, DIRECT ([id number])Indication: Anemia, unspecified On: 41-Qfr-640120:25 Request FOLIC ACID SERUM ([id number])Indication: Anemia, unspecified On: Request Methymalonic Acid, Serum (25278)Indication: Anemia, unspecified On: Request VITAMIN B-12 (CYANOCOBALAMIN) ([id number])Indication: Anemia, unspecified On: : Request RETICULOCYTE COUNT MANUL (02709)Indication: Anemia, unspecified On: Request LDH (LD) (LACTATE DEHYDROGENASE) ([id number])Indication: Anemia, unspecified On: Request IRON BINDING CAPACITY (TIBC) ([id number])Indication: Anemia, unspecified On: Request IRON ([id number])Indication: Anemia, unspecified On: Request FERRITIN ([id number])Indication: Anemia, unspecified On: Request CBC, PLATELETS & AUT DIFF (39814)Indication: Anemia, unspecified On: Request HCT (Hematocrit) ([id number])Indication: Abnormal blood chemistry On: :18 Request Comments: stat HGB (HEMOGLOBIN) (30518)Indication: Abnormal blood chemistry On: :17 Request Comments: stat FECAL OCCULT HGB ASSAY- tubes sent home ([id number])Indication: Encounter for Medicare annual wellness exam On: 37-Ttl-169955:46 Request TSH ([id number])Indication: Hypertension, renal disease On: :07 Request URINALYSIS, W/ MICRO ([id number])Indication: Hypertension, renal disease On: 3-Xvl-205997:07 Request MICROALBUMIN: CREATININE RATIO (38701) AND ([id number])Indication: Hypertension, renal disease On: 3-Cgn-645981:06 Request METABOLIC PANEL, COMPREHENSIVE (61647)Indication: Hypertension, renal disease On: : Request LIPID PANEL (01349)Indication: Hypertension, renal disease On: : Request CBC WITH MANUAL DIFF ([id number])Indication: Hypertension, renal disease On: 5-Drf-107377:06 Request Metabolic Panel, Basic ([id number])Indication: Hypertension, renal disease On: 3-Xzz-484575:34 Request CREATININE CLEARANCE ([id number])Indication: Hypertension, renal disease On: :52 Request CBC WITH MANUAL DIFF ([id number])Indication: Hypertension, renal disease On: :32 Request METABOLIC PANEL, COMPREHENSIVE (72704)Indication: Hypertension, renal disease On: :32 Request Sed Rate Erythrocyte ([id number])Indication: Hypertension, renal disease On: :32 Request MICROALBUMIN 24 HOUR OR RANDOM ([id number])Indication: Hypertension, renal disease On: :32 Request Urine Protein Electrophoresis (UPEP) ([id number])Indication: Hypertension, renal disease On: : Request Serum Protein Electrophoresis (SPEP) (66606)Indication: Hypertension, renal disease On: : Request MAGNESIUM (32138)Indication: Hypertension, renal disease On: :32 Request PHOSPHORUS (41393)Indication: Hypertension, renal disease On: :32 Request CALCIFEDIOL ([id number])Indication: Hypertension, renal disease On: :32 Request PARATHORMONE ([id number])Indication: Hypertension, renal disease On: :32 Request FECAL OCCULT HGB ASSAY- tubes sent home (81461)Indication: Weight loss On: 4-Qra-031219:07 Request HEPATIC FUNCTION PANEL ([id number])Indication: Hypercholesteremia On: :26 Request LIPID PANEL (49355)Indication: Hypercholesteremia On: :26 Request C-REACTIVE PROTEIN ([id number])Indication: Abdominal pain, unspecified abdominal location On: :43 Request Sedimentation Rate-ESR (88823)Indication: Abdominal pain, unspecified abdominal location On: :43 Request Metabolic Panel, Comprehensive (00931)Indication: Abdominal pain, unspecified abdominal location On: :42 Request CBC with manual diff ([id number])Indication: Abdominal pain, unspecified abdominal location On: :42 Request Lipase (63131)Indication: Abdominal pain, unspecified abdominal location On: :42 Request Amylase ([id number])Indication: Abdominal pain, unspecified abdominal location On: 27-Aug-20108:42 Request TSH (33663)Indication: Hypercholesteremia On: :17 Request URINALYSIS, W/ MICRO ([id number])Indication: Hypertension, renal disease On: :17 Request MICROALBUMIN: CREATININE RATIO (61933) AND ([id number])Indication: Hypertension, renal disease On: :17 Request METABOLIC PANEL, COMPREHENSIVE (71835)Indication: Hypertension, renal disease On: :17 Request CBC WITH MANUAL DIFF ([id number])Indication: Hypertension, renal disease On: :17 Request LIPID PANEL (78982)Indication: Hypercholesteremia On: :17 Request Creatine (77203)Indication: Hypertension, renal disease On: 16-Syl-461333:19 Request Urinalysis, Office (32254)Indication: Abdominal pain, unspecified abdominal location On: 09-Mpm-798379:09 Request TSH ([id number])Indication: Hypercholesteremia On: 92-Llq-131116:07 Request METABOLIC PANEL, COMPREHENSIVE (36293)Indication: Hypertension, renal disease On: 69-Gfk-499674:06 Request LIPID PANEL ([id number])Indication: Hypertension, renal disease On: 67-Cgm-308037:06 Request CBC WITH MANUAL DIFF ([id number])Indication: Hypertension, renal disease On: 47-Zsz-503330:06 Request Folate ([id number])Indication: Fatigue On: 98-Dgk-387842:41 Request FECAL OCCULT HGB ASSAY- tubes sent home ([id number])Indication: Well woman exam On: 38-Ujs-539953:37 Request HEPATIC FUNCTION PANEL ([id number])Indication: Hypercholesteremia On: 06-Iet-020064:36 Request LIPID PANEL ([id number])Indication: Hypercholesteremia On: 67-Gyh-310681:36 Request Comments: do in 2- 2 1/2 months CCP ANTIBODY ([id number])Indication: Pain in thoracic spine On: 6-Odn-408286:18 Request Vitamin D Hydroxy ([id number])Indication: Osteopenia On: 64-Lqw-728484:19 Request HEPATIC FUNCTION PANEL ([id number])Indication: Hypercholesteremia On: 39-Lue-606622:15 Request LIPID PANEL ([id number])Indication: Hypercholesteremia On: :15 Request Comments: do in 3 mo LIPOPROTEIN, BLD, BY NMR ([id number])Indication: Hypercholesteremia On: :15 Request Urinalysis, Office ([id number])Indication: BLADDER RETENTION OF URINE On: :19 Request Comments: NEG TSH ([id number])Indication: Irritable bowel syndrome On: :53 Request MICROALBUMIN: CREATININE RATIO On: :53 Request ([id number]) AND ([id number]) METABOLIC PANEL, COMPREHENSIVE On: :53 Request ([id number]) LIPOPROTEIN, BLD, BY NMR ([id number]) On: :53 Request LIPID PANEL ([id number]) On: :53 Request CBC WITH MANUAL DIFF ([id number]) On: :51 Request Planned Procedures Spirometry ([id number])By: Chapis MONTGOMERY, On: 18-Oct-2017 Intent Priya Atkinson DO ELECTROCARDIOGRAM, COMPLETE (ECG) On: 18-Oct-2017 Intent ([id number])By: Priya Jimenez DO, DO, Kathleen B 12 Injection, 1000 mcg (J3420)By: On: 15-Apr-2017 Intent Priya Jimenez DO, DO, Comments: 1 ml given lt arm lot [id number] exp 09/11 Priya B 12 Injection, 1000 mcg (J3420)By: On: 12-Nov-2016 Intent Priya Jimenez DO, DO, Kathleen INTENSIVE BEHAVIORAL THERAPY TO On: 08-Jul-2016 Intent REDUCE CARDIOVASCULAR DISEASE RISK, INDIVIDUAL, [id number]-TL-[id number], ANNUAL, 15 MINUTES (G0446)By: Priya Jimenez DO, DO, Kathleen ELECTROCARDIOGRAM, COMPLETE (ECG) On: 11-Jun-2016 Intent ([id number])By: Priya Jimenez DO Comments: sinus jg no [...] PNEUM VAC ADLT/IMUMNOSPR, SBC/INTRM On: 13-Aug-2015 Intent ([id number])By: Chapis DOAdarshPriya Comments: pneumovaxlot:[id number]:01/31/17site:lt deltroute:IMDEmick, [place] Chapis DO, Priya Radiology - [...] DO, Comments: given - 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, COGNOS LEAD Priya Flu Vaccine (Quadrivalent) [id number]: On: 04-Feb-2015 Intent Chapis DO, Priya Chapis DO, Comments: lot [id number]: 10/24/2015site/route L janet, IMamt 0.5mlVIS and ABN [...] Six Minute Walk Assessment On: 07-Mar-2014 Intent (25621)By: Priya Jimenez DO Comments: set up Priya Jimenez DO Prevnar 13 ([id number])By: Chapis MNOTGOMERY On: 21-Feb-2014 Intent Priya Atkinson DO Comments: [id number] arm, IMAS ADMINISTRATION OF INFLUENZA VIRUS On: 21-Feb-2014 Intent VACCINE (G0008)By: Chapis MONTGOMERY, Comments: [id number] syringeL Dltd, IMAS, LPNABN and VIS signed Priya Atkinson DO Flu Vaccine (Quadrivalent) [id number]: On: 21-Feb-2014 Priya Matson DO, DO, Kathleen Bone Density StudyBy: Chapis MONTGOMERY, On: 26-Jul-2013 Intent Priya Atkinson DO Spirometry ([id number])By: Chapis MONTGOMERY On: 22-Feb-2013 Intent Priya Atkinson DO Comments: obstr present - presnet taking mdi's- and trying to quit with ecig FLU VAC, SPLIT, >3 YEARS, INTRAMUSC On: 22-Feb-2013 Intent ([id number])By: Joaquina Young LPN Comments: Lot:[id number]:6.14Amt:0.5mlRoute:IMSite: L DltdGiven By: NOEMY MazaVIS signed ADMINISTRATION OF INFLUENZA VIRUS On: 22-Feb-2013 Intent VACCINE (G0008)By: Joaquina Young LPN Eprescribed prescriptions On: 31-Aug-2012 Intent (G8553)By: Joaquina Young LPN Eprescribed prescriptions On: 15-Aug-2012 Intent (G8553)By: Joaquina Young LPN SLEEP STUDY, ATTENDED ([id number])By: On: 08-Aug-2012 Intent Chapis DO, Priya Chapis [...] ([id number])By: Kenn Aragon CNP Comments: lot number [id number] 08/2014 IM left hip 125mg solumedrol Radiology - ChestBy: Elda LOU, On: 01-Mar-2012 Intent Kenn Hartley Awktzcopd-Cxd-Iely ([id number])By: Elda On: 01-Mar-2012 Intent Kenn LOU Pulse Oximetry ([id number])By: Kashif SALGUERO, On: 01-Mar-2012 Intent Jen Funk Comments: 97 FLU VAC, SPLIT, >3 YEARS, INTRAMUSC On: 31-Dec-2011 Intent (47154)By: Priya Jimenez DO Comments: Lot #[id number]-L dltd, IMDose prefilled syringegiven by:NOEMY HardinVIS signed Priya Jimenez DO ADMINISTRATION OF INFLUENZA VIRUS On: 31-Dec-2011 Intent VACCINE (G0008)By: Priya Jimenez DO, DO, Kathleen Esophagram with 13 mm tabletBy: On: 31-Dec-2011 Intent Priya Jimenez DO, DO, Kathleen EKG (47449)By: Joaquina Young On: 31-Dec-2011 Josefina SALGUERO Comments: nsr no acute chg -- LAD/ q waves in inferior leads Eprescribed prescriptions On: 31-Dec-2011 Intent (G8553)By: Joaquina Young LPN Spirometry ([id number])By: Chapis MONTGOMERY, On: 12-Aug-2011 Intent Priya Atkinson DO Comments: 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 - she is good with lack of symptoms MAMMOGRAM, SCREENING, BOTH BREASTS On: 12-Aug-2011 Intent ([id number])By: Priya Jimenez DO, DO, Kathleen Eprescribed prescriptions On: 02-Apr-2011 Intent (G8553)By: Priya Jimenez DO, DO, Kathleen FLU VAC, SPLIT, >3 YEARS, INTRAMUSC On: 13-Jan-2011 Intent ([id number])By: Elni Andrade RN Comments: Lot #:[id number] date: 10/05Amount given: 0.5 mlRoute: IMSite given: left deltoidGiven by: BHUPINDER Gutierrez IMMUNIZ ADMNIN, 1 VAC, SNGL/COMBO On: 13-Jan-2011 Intent ([id number])By: Elin Andrade RN EKG ([id number])By: Priya Jimenez DO On: 01-Dec-2010 Intent Priya Jimenez DO Comments: nsr no acute disease Eprescribed prescriptions On: 01-Dec-2010 Intent (G8553)By: Joaquina Young LPN Toradol Injection, 30 mg On: 25-Sep-2010 Intent (J1885)By: Priya Jimenez DO Comments: Lot #[id number]-left hipDose- 30mggiven by: NOEMY Morton DO, Kathleen Eprescribed prescriptions On: 25-Sep-2010 Intent (G8553)By: Priya Jimenez DO, DO, Kathleen Pulse Oximetry ([id number])By: Chapis On: 15-Sep-2010 Priya Rocha DO, DO, [...] MAMMOGRAM, SCREENING, BOTH BREASTS On: 25-Aug-2010 Intent ([id number])By: Priya Jimenez DO, DO, Kathleen CT - Chest (IV Contrast Needed)By: On: 22-Aug-2010 Intent Priya Jimenez DO, DO, Priya Overnight Pulse OX ([id number])By: On: 22-Aug-2010 Intent Priya Jimenez DO, DO, Comments: set up today Priya Overnight Pulse OX ([id number])By: On: 25-Jul-2010 Intent Vanessa Azar LPN Overnight Pulse OX ([id number])By: On: 11-Jul-2010 Intent Priya Jimenez DO, DO, Comments: set up [place] Pulse Oximetry (02462)By: Chapis On: 27-Jun-2010 Priya Rocha DO, DO, Kathleen Spirometry (17204)By: Chapis MONTGOMERY, On: 13-Jun-2010 Intent Priya Atkinson DO Comments: severe obstruction -- noncompliance with use of inhalers -- will restart smaples proveded Aerosol Treatment ([id number])By: Chapis On: 13-Jun-2010 Priya Rocha DO, DO, Kathleen Comments: more a/e but more noise with exp Rocephin Injection, 2 Gram On: 13-Jun-2010 Intent (J0696)By: Priya Jimenez DO Comments: Lot #[id number]-L hipDose 5ml/2given by:Priya Camarillo DO Solu- Medrol Injection, 125mg On: 13-Jun-2010 Intent (J2930)By: Priya Jimenez DO Comments: Lot #[id number]-R hipDose 125mg/2mlgiven by:Priya Camairllo DO Pulse Oximetry (74252)By: Chapis On: 13-Jun-2010 Intent Priya MONTGOMERY DO, Kathleen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
--- OUTSIDE RECORDS SUMMARY | 2018-05-23 13:44 | XMS RPT_ITS | Continuity of Care Document ---
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 [address] Radiology Report MR#: [id number] Acct: [id number] Name: KILEY DREW Rep #: [id number] : 1935 F 78 From: Ester Bautista MD PCP: Priya Jimenez DO Status: REG ER Study: Chest 1 View (Portable) Date of Exam: 05/11/14 Exam# [id number] Ordering Dr: Moncho Sahu MD STUDY: X-RAY [...] at 14:05 EST Tel , Service support [phone], RAD/Chest 1 View (Portable) IMPRESSION: There are stable findings. Electronically Signed: Ester Bautista MD at 14:05 EST , Service support [phone], CC: Priya Jimenez DO; Moncho Sahu MD Supervisor Electrolytic Tinning: Signed 23-Apr-2014 Chest PA and Lateral Result: Comments: See Note; NOTES: [facility] Imaging Services [address] [place] [address] Radiology Report MR#: [id number] Acct: [id number] Name: KILEY DREW Rep #: [id number] : 1935 F 78 From: Edmundo Zhou MD PCP: Priya Jimenez DO Status: REG CLI Study: Chest PA and Lateral Date of Exam: 04/23/14 Exam# [id number] Ordering Dr: Sincere Castillo MD STUDY: X-RA [...] Danny Zhou MD at 14:32 EST Tel [phone], Service support [phone], CC: Sincere Castillo MD; Priya Jimenez DO Supervisor Electrolytic Tinning: Signed 17-Apr-2014 Pulmonary Function Report Comp Result: Comments: See Note; NOTES: [facility] Pulmonary Services/Neurology [address] [place] [address] Pulmonary Function Test (Comp) MR#: [id number] Acct: [id number] Name: KILEY TEMPLE Rep #: [id number] : 1935 78 From: Sincere Castillo MD Referring Dr: Sincere Castillo MD Status: REG CLI Ordering Dr: Sincere Castillo MD Date: 04/13/14 Location: [facility] Sex: F C Date: 03/26 01/07 [...] Dictated: 04/14/14 1110 Date Transcribed: 04/15/14 0705 Supervisor Electrolytic Tinning: CAROL ANN Signed 31-Jan-2014 Echocardiogram, Limited Study Result: Comments: See Note; NOTES: [facility] Cardiovascular Services [address] [place] [address] Echo, Limited Study 01/31/14 1347 MR#: [id number] Acct: [id number] Name: KILEY TEMPLE Rep #: [id number] : 1935 78 From: Pete Castro MD [...] Dictated: 01/31/14 1347 Date Transcribed: 01/31/14 1539 Supervisor Electrolytic Tinning: Signed 13-Nov-2013 Echocardiogram Complete Result: Comments: See Note; NOTES: [facility] Cardiovascular Services [address] [place] [address] Echo Complete 11/13/13 1321 MR#: [id number] Acct: [id number] Name: REGAN DREW RA Rep #: [id number] : 1935 78 From: Kaden Barboza MD Attending Dr: Tamra AVILA,Kaden Status: REG CLI Ordering Dr: Kaden Barboza MD Date: 11/13/13 Location: [facility] Sex: F C Admitted: Procedur e This [...] Physician: Kaden Barboza Performed By: Zee Joya [facility] : Kaden Barboza MD; Priya Jimenez DO Date Dictated: 11/13/13 1321 Date Transcribed: 11/13/13 1631 Supervisor Electrolytic Tinning: Signed 27-Sep-2013 Dexa Bone Density Study (HP) Result: Comments: See Note; NOTES: [facility] Imaging Services [address] [place] [address] Bone Density Report MR#: [id number] Acct: [id number] Name: KILEY DREW Jada Rep #: [id number] : 1935 F 78 From: Kit Castillo MD PCP: Priya Jimenez DO Status: [facility] Study: Dexa Bone Density Study (HP) Date of Exam: 09/27/13 Exam# [id number] Ordering Dr: Terrie Jimenez DO STUDY: DUAL [...] a moderate fracture risk. On the lateral jewel hole rough opener view, there is evidence of increased kyphosis. [...] Kit Castillo MD at 14:27 EDT Tel [phone], Service support [phone], CC: Priya Jimenez DO Supervisor Electrolytic Tinning: Signed 16-Aug-2013 Kidney and Bladder Result: Comments: See Note; NOTES: [facility] Imaging Services [address] [place] [address] Ultrasound Report MR#: [id number] Acct: [id number] Name: KILEY DREW Rep #: [id number] : 1935 F 77 From: Kit Castillo MD PCP: Priya Jimenez DO Status: REG CLI Study: Kidney and Bladder Date of Exam: 08/16/13 Exam# [id number] Ordering Dr: Ross Mello MD STUDY: RENAL [...] Kit Castillo MD at 9:30 EDT Tel [phone], Service sup port [phone], CC: Priya Jimenez DO; Ross Mello MD Supervisor Electrolytic Tinning: Signed Immunization Name Dates Details Influenza (3 years and up) on: 03-Jan-2009 Comments: Lot #:[id number] date: mount given: 0.5 mlRoute: IMSite [...] Active Vital Signs Date Test Result Details 98-Vlc-434635:21 Comments: hearing wnlDr. Chambers and had glaucoma [...] W/Diff, Automated Comments: Reason for Laboratory Test .[facility] [address] [place], [address] Absolute Lymph 0.86 {X10_3/ul} (Normal) [...] 4.2-5.4 WBC 8.0 K/mm3 (Normal) Range: 4.4-11.0 83-Ugo-87680:45 Comprehensive Metabolic Profil Comments: [facility] [address]oxk[address] [place], [address] GAP 6 (Normal) Range: 5-15 [...] A.D.A. criteria.Please note revised GLUCOSE reference range ryomjfhix19/02/2018. :45 Ferritin Comments: [facility] [address] [place], [place], [address] FERRITIN 261 ng/mL (Abnormal) Range: 8-252 :45 Iron+Iron Binding Capacity Comments: [facility] [address] [place], [address] IRON SATURATION 19.1 % (Normal) Range: 15.0-55.0 IRON 63 ug/dL (Normal) Range: 50-170 TIBC 329 ug/dL (Normal) Range: 250-450 :00 CBC W/Diff, Automated Comments: [facility] [address] [place], [address] Absolute Lymph 1.19 {X10_3/ul} (Normal) [...] Range: 4.4-11.0 25-Oct-20170:00 Comprehensive Metabolic Profil Comments: [facility] [address]epus[address]eg[address] [place], [place], [address] GAP 5 (Normal) Range: 5-15 CO2 43.0 [...] Comments: Please note revised GLUCOSE reference range mfdkdugfg89/02/2018. 25-Oct-20170:00 Lipid Profile Comments: [facility] [address] [place], [place], [address] VLDL 12 mg/dL (Normal) Range: 5-40 LDL [...] High Risk 25-Oct-20170:00 Microalb:Creat Ratio,Random UR Comments: [facility] [address] [place], [address] MALB:CREAT 38.8 {mg/g_CRE} (Abnormal) MICROALBUMIN,UR 27.3 mg/L (Normal) UR CREAT 70.40 mg/dL (Normal) :00 Miscellaneous Lab Procedure Comments: Test(s) Ordered: [id number] calcifediol room temp/ serum or [facility] [address]af[address]txut[address] [place], [address] [facility] Comments: TEST RESULT LIMITSCalcitriol (1,25 di-OH Vit D) 42.8 pg/mL 19.9 - 79.3 TEST[facility]FOR[facility] AT [facility] (Normal) NAL REPORT ON FILE IN LAB CONTAINS ADDITIONAL TEST SITE INFORMATION. TEST 25-Oct-20170:00 Thyroid Stim Hormone (TSH) Comments: [facility] [address]wh[address]aguz[address] [place], [address] TSH 2.95 {uIU/mL} (Normal) Range: 0.358-3.74 25-Oct-20170:00 Urinalysis, Complete Comments: How was Urine Obtained? CLEAN [facility] [address] [place], [address] HYALINE CAST 0-5 SEEN {/lpf} (Normal) [...] 25-Oct-20170:00 Vitamin B12 627 pg/mL (Normal) Comments: [facility] Wsmbzdivit5676 [facility] [address] [place], [place], [address] Range: 211-911 26-Zvl-00817:00 CBC W/Diff, Automated Comments: [facility] [address] [place], [place], [address] Absolute Lymph 1.16 {X10_3/ul} (Normal) Range: 0.83-4.51 [...] 4.2-5.4 WBC 9.0 K/mm3 (Normal) Range: 4.4-11.0 44-Nkj-95761:00 Vitamin B12 851 pg/mL (Normal) Comments: [facility] Ooffagzbka5136 [facility] [address] [place], [place], [address] Range: 211-911 50-Vqf-791036:33 CBC W/Diff, Automated Comments: [facility] Eqwwztzgbs4145 [facility]. [place], [place], [address] Absolute Lymph 1.38 {X10_3/ul} (Normal) Range: 0.83-4.51 [...] 4.2-5.4 WBC 8.4 K/mm3 (Normal) Range: 4.4-11.0 65-Ykx-173907:20 Basic Metabolic Profile (BMP) Comments: [facility] [address] [place], [address] GAP Test not performed [...] 7-18 GLU 103 mg/dL (Normal) Range: 70-110 9-Hfb-086809:00 Magnesium Comments: [facility] [address] [place], [address](793) MG 1.8 mg/dL (Normal) Range: 1.8-2.4 3-Vbt-920091:00 Potassium Comments: [facility] [address] [place], [phone]) K 3.4 mmol/L (Abnormal) Range: 3.5-5.1 5-Hvt-475447:18 CBC W/Diff, Automated Comments: [address] [place], [address]) Absolute Lymph 1.22 {X10_3/ul} (Normal) Range: 0.83-4.51 [...] 4.2-5.4 WBC 8.9 K/mm3 (Normal) Range: 4.4-11.0 6-Jkk-898514:05 Comprehensive Metabolic Profil Comments: Reason for Laboratory Test .[facility] [address] [place], [address] GAP 3 (Abnormal) Range: 5-15 CO2 40.0 [...] 7-18 GLU 93 mg/dL (Normal) Range: 70-110 4-Ipk-751896:05 Ferritin Comments: Reason for Laboratory Test .[facility] [address] [facility] [address] [place], [place], [address] FERRITIN 311 ng/mL (Abnormal) Range: 8-252 8-Zns-467634:05 Iron+Iron Binding Capacity Comments: Reason for Laboratory Test .[facility] [address] [place], [place], [address] IRON SATURATION 16.5 % (Normal) Range: 15.0-55.0 IRON 53 ug/dL (Normal) Range: 50-170 TIBC 322 ug/dL (Normal) Range: 250-450 86-Mxm-145393:36 CBC W/Diff, Automated Comments: [facility] [address]qynmp[address] [facility] [address] [place], [place], [address] Absolute Lymph 1.34 {X10_3/ul} (Normal) Range: 0.83-4.51 [...] 4.2-5.4 WBC 8.1 K/mm3 (Normal) Range: 4.4-11.0 09-Oad-414069:36 Comprehensive Metabolic Profil Comments: Reason for Laboratory Test [facility] [address]mtw[address] [place], [address] GAP 8 (Normal) Range: 5-15 CO2 38.0 [...] 7-18 GLU 80 mg/dL (Normal) Range: 70-110 84-Wcr-200223:36 Ferritin Comments: Reason for Laboratory Test [facility] Q[address]ajgise[address] [facility] [address] [place], [place], [phone]) FERRITIN 249 ng/mL (Normal) Range: 8-252 27-Rmg-245652:36 Iron Comments: Reason for Laboratory Test [facility] [address]llzelnheg[address] [facility] [address] [place], [place], [address] IRON 69 ug/dL (Normal) Range: 50-170 8-Xwc-633166:40 CBC W/Diff, Automated Comments: [facility] Qcxeupqrqt3892 [facility] [place], [place], [address] Absolute Lymph 1.03 {X10_3/ul} (Normal) Range: 0.83-4.51 [...] 4.2-5.4 WBC 8.9 K/mm3 (Normal) Range: 4.4-11.0 9-Xtl-791006:40 Comprehensive Metabolic Profil Comments: Reason for Laboratory Test [facility] Xabadtxdhb7243 [facility] [place], [place], [address] GAP 3 (Abnormal) Range: 5-15 CO2 40.0 [...] 7-18 GLU 71 mg/dL (Normal) Range: 70-110 5-Ffb-187318:40 Ferritin Comments: Reason for Laboratory Test [facility]IALake [facility] [address]usmpz[address] [place], [place], [address] FERRITIN 178 ng/mL (Normal) Range: 8-252 5-Axo-235933:40 Iron Comments: Reason for Laboratory Test [facility] [address]ow[address] [place], [place], [address] IRON 59 ug/dL (Normal) Range: 50-170 01-Uoj-051726:12 CALCIFIDIOL (59897) VIT D 25 Comments: PATIENT WAS FASTINGPERFORMED BY: [facility] Jjyltj4055 [facility] [id number] Vitamin D, 25-Hydroxy 21.8 ng/mL (Abnormal) Range: 30.0-100.0 Comments: Vitamin D deficiency has been defined by the [place] ofMedicine and an Endocrine Society practice guideline as alevel of serum 25-OH vitamin D less than 20 ng/mL (1,2).The Endocrine Society went on to further define vitamin Dinsufficiency as a level between 21 and 29 ng/mL (2).1. IOM ([place] of Medicine). 2010. Dietary reference intakes for calcium and D. [place]: The National Academies Press.2. Armond MF, Rosa [place], Kyler ANDREWS, et al. Evaluation, treatment, and prevention of vitamin D deficiency: an Endocrine Society clinical practice guideline. JCEM. 2010; 96(7):6781-30. 60-Buc-687953:12 VITAMIN B-12 (CYANOCOBALAMIN) Comments: PATIENT WAS FASTINGPERFORMED BY: [employer] Zbufqi7766 [facility] [id number] (29774) Vitamin B12 517 pg/mL (Normal) Range: 211-946 69-Nqz-372856:12 TSH (42300) Comments: PATIENT WAS FASTINGPERFORMED BY: [facility]6370 [facility] [id number] TSH 1.500 {uIU/mL} (Normal) Range: 0.450-4.500 :12 METABOLIC PANEL, COMPREHENSIVE Comments: PATIENT WAS FASTINGPERFORMED BY: [employer] Xfxgvz5442 [facility] [id number] (34006) ALT (SGPT) 14 [iU]/L (Normal) Range: 0-32 [...] Glucose, Serum 83 mg/dL (Normal) Range: 65-99 04-Qcz-986866:12 LIPID PANEL (62058) Comments: PATIENT WAS FASTINGPERFORMED BY: [facility] Uxyomx[address] [place] [place] [id number] LDL/HDL Ratio 1.0 {ratio_units} (Normal) Range: 0.0-3.2 Comments: LDL/HDL Ratio Men Women 1/2 Avg.Risk 1.0 1.5 Av g.Risk 3.6 3.2 2X Avg.Risk 6.2 5.0 3X Avg.Risk 8.0 6.1 LDL Cholesterol Calc 77 mg/dL (Normal) Range: 0-99 VLDL Cholesterol Pete 18 mg/dL (Normal) Range: 5-40 HDL Cholesterol 78 mg/dL (Normal) Triglycerides 89 mg/dL (Normal) Range: 0-149 Cholesterol, Total 173 mg/dL (Normal) Range: 100-199 07-Gjt-562084:09 CBC W/Diff, Auto - EPLAB Comments: At [facility] Outpatient [facility] Medical Oncologypatients receive CBC w/auto Differential ONLY. Physicianwill place an order for a manual differential or Pathologistreview at his discretion. [facility] OUTPATIENT [facility]. [address] [place] [address] CLIENT APPLICATION SUPPORT SPECIALIST: KURTIS STEVENS DO PH:[phone] County [facility] Hospital [facility] [address]adgwv[address] [place], [place], [address] Absolute Lymph 1.19 {X10_3/uL} (Normal) Range: 0.83-4.51 [...] 4.2-5.4 WBC 9.0 K/mm3 (Normal) Range: 4.4-11.0 39-Rzw-446278:10 CBC W/Diff, Automated Comments: [facility] [address]fktbnfg[address] [place], [place], [address] Absolute Lymph 0.80 {X10_3/ul} (Abnormal) Range: 0.83-4.51 [...] 4.2-5.4 WBC 6.2 K/mm3 (Normal) Range: 4.4-11.0 64-Ndp-265631:25 CBC W/Diff, Auto - EPLAB Comments: At [facility] Outpatient [facility] Medical Oncologypatients receive CBC w/auto Differential ONLY. Physicianwill place an order for a manual differential or Pathologistreview at his discretion. [facility] OUTPATIENT [facility]. [address] [place] [address] CLIENT APPLICATION SUPPORT SPECIALIST: KURTIS STEVENS DO PH:[phone] County Memorial Hospital [facility] [address]nimjf[address] [place], [address] Absolute Lymph 0.75 {X10_3/uL} (Abnormal) [...] 4.2-5.4 WBC 7.7 K/mm3 (Normal) Range: 4.4-11.0 2-Xgz-380707:50 Urinalysis, Complete Comments: How was Urine Obtained? VETERANS CONTACT REPRESENTATIVE TO SPECIFYLake County Memorial Hospital [facility] [address]ccfo[address] [place], [place], [address] MUCUS, URINE 0 SEEN {/hpf} (Normal) BACTERIA [...] CLARITY Sl. Cloudy (Normal) COLOR Yellow (Normal) 8-Exi-652389:00 Basic Metabolic Profile (BMP) Comments: [facility] Jawuluouzt3239 [facility]. [place], [place], [address] GAP 6 (Normal) Range: 5-15 CO2 38.0 [...] 7-18 GLU 101 mg/dL (Normal) Range: 70-110 0-Vfw-408173:00 CBC W/Diff, Automated Comments: [facility] [address]dow[address] [place], [address] Absolute Lymph 0.60 {X10_3/ul} (Abnormal) [...] 4.4-11.0 :30 Miscellaneous Lab Procedure Comments: Comments: [id number], [id number](s) Ordered: Flow [id number] Test(s) Ordered by Physician: Cytogenetics [id number] Ierradlask[address] [place], [place], [address] [facility] LAB TEST FLOW-SEE PTH (Normal) :30 Miscellaneous Lab Procedure 2 Comments: Comments: [id number], [id number](s) Ordered: Flow [id number] Test(s) Ordered by Physician: Cytogenetics [id number] County Memorial Hospital [facility] [address]vhuy[address] [place], [place], [address] [facility] LAB TEST 2 CYTO-SEE PTH (Normal) :03 CBC W/Diff, Auto - EPLAB Comments: At [facility] Outpatient [facility] Medical Oncologypatients receive CBC w/auto Differential ONLY. Physicianwill place an order for a manual differential or Pathologistreview at his discretion. [facility] OUTPATIENT [facility]. [address] [place] [place] [address] CLIENT APPLICATION SUPPORT SPECIALIST: KURTIS STEVENS DO PH:[phone] County Memorial Hospital [facility] West [address]zpjnq[address] [place], [place], [address] Absolute Lymph 0.74 {X10_3/uL} Range: 0.83-4.51 (Abnormal) [...] BONE MARROW BIOPSY See Note (Normal) Comments: [facility] [address]feg[address] [place], [address] 0 Comments: Patient: KILEY DREW : 1935 (80/F) Acct Num: [id number] Phys: Devon Jenkins Unit Num: [id number] Loc: [facility] Specimen: [id number] Received: 11/26/15 - 50 Spec Type: BMB TISSUES TISSUES: ADDENDUM Addendum Number 1 CYTOGENETICS REPORT FROM [facility] CYTOGENETIC RESULT: 46,XX[20] INTERPRETATION: Normal female karyotype was observed in twenty m etaphases analyzed. Please see complete report in e-chart or EMR for further details Addendum Signed Kurtis [facility] [place] [facility] 12/05/15 <signa maria victoria on file> [...] and cytogenetics. / TIFFANIE:manas 11/26/15 TC:0 CPT: 24502, 85520, 65532 x2, 50262 x3, 61678 BONE MARROW STUDY Slides are reviewed. CBC [...] send outs (flow and cytogenetics) Signed Kurtis [facility] [place] [facility] 11/29/15 <signature on file> :0 IMMUNOHISTOCHEMISTRY See Note (Normal) Comments: [facility] [address]lg[address] [place], [address] 0 Comments: Patient: KILEY DREW : 1935 (80/F) Acct Num: [id number] Phys: Devon Jenkins Unit Num: [id number] Loc: [facility] Specimen: [id number] Received: 11/27/15 - 1310 Spec Type: IMMUNO TISSUES TISSUES: SPECIMEN INFORMATION: Tissue Source: Bone marrow biopsy and aspiration Clinical Info: Anemia Specimen Number: [id number] CPT code: 58228, 02605 x14 METHOD OLOGY: Deparaffinized sections of prefer/formalin-fixed [...] positive CD79a (11E3) positive CD138 (B-A38) negative [place] (polyclonal) negative Lambda (polyclonal) negative CD10 (56C6) negative CD23 (1B12) negative BCL-2 (bcl-2/100/D5) negative BCL-6 (KB212E/A8) negative Cycl[place] D1/BCL-1 (SP4) negative Ki-67 (30-9) negative These tests were developed and their performance characteristics determined by [facility] Laboratory. They may not have been cleare d or approved by the U.S. Food and Drug Administration. The FDA has determined that such clearance or approval is not necessary. INTERPRETATION: A. Bone marrow core: Polytypic (benign) lymphoid aggregate. Case has been reviewed in consultation with Dr. Smith who concurs with the abovediagnosis. IDC:TIFFANIE AM:manas 11/28/15 PHYSICIAN AND INSTITUTION [facility] [address] [place], [place] [address] Signed Kurtis Stevens 11/28/15 <signature on file> 08-Omw-269452:37 Basic Metabolic Profile (BMP) Comments: [facility] [address] [place], [place], [address] GAP 6 (Normal) Range: 5-15 CO2 36.0 [...] 7-18 GLU 90 mg/dL (Normal) Range: 70-110 17-Eyx-577065:36 CBC W/Diff, Auto - EPLAB Comments: At [facility] Outpatient [facility] Medical Oncologypatients receive CBC w/auto Differential ONLY. Physicianwill place an order for a manual differential or Pathologistreview at his discretion. [facility] OUTPATIENT [facility]. [address] [address] CLIENT APPLICATION SUPPORT SPECIALIST: KURTIS STEVENS DO PH:[phone] [facility] [address] Lrppqugfgv0[address] [place], [place], [address] Absolute Lymph 0.96 {X10_3/uL} (Normal) Range: 0.83-4.51 [...] :25 Basic Metabolic Profile (BMP) Comments: [facility] [address]ifsukt36[address] [place], [address] GAP 2 (Abnormal) Range: 5-15 CO2 38.0 [...] 7-18 GLU 102 mg/dL (Normal) Range: 70-110 54-Jwi-532156:15 Comments: Non-[facility] Laboratory - refer to report for specific site [id number] TRANSFUSED PRODUCT: T AND S with Crossmatch, Red Cells COUNT: 2 (Normal) 01-Lpi-902626:15 Type AND Screen Comments: CMV NEG?* NGive When? When ReadyIrradiated? YLeukodepleted? YReason for Type AND Screen/Red Cells: [facility] [address]zvyb[address] [place], [address] Antibody Screen NEGATIVE (Normal) BLOOD TYPE GEL A POSITIVE (Normal) 69-Qwd-964411:15 Type AND Screen Comments: CMV NEG?* NGive When? When ReadyIrradiated? YLeukodepleted? YReason for Type AND Screen/Red Cells: [facility] [address]njskvrtv[address] [place], [address] ; Managed by Devon Jenkins Antibody Screen NEGATIVE (Normal) BLOOD TYPE GEL A POSITIVE (Normal) 69-Jdj-337265:03 CBC W/Diff, Auto - EPLAB Comments: At [facility] Outpatient [facility] Medical Oncologypatients receive CBC w/auto Differential ONLY. Physicianwill place an order for a manual differential or Pathologistreview at his discretion. [facility] OUTPATIENT [facility]. [address] [place] [address] CLIENT APPLICATION SUPPORT SPECIALIST: KURTIS STEVENS DO PH:[phone] County Memorial Hospital [facility] Smdbvyseuc[address] [place], [address] Absolute Lymph 0.65 {X10_3/uL} (Abnormal) [...] 4.2-5.4 WBC 9.6 K/mm3 (Normal) Range: 4.4-11.0 79-Doj-289907:05 Comprehensive Metabolic Profil Comments: Serial Specimen #1, #2 or #3? 1WMer[facility] F[address]jbhbmxp9[address] [place], [place], [address] GAP 5 (Normal) Range: 5-15 CO2 40.0 [...] Comments: Serial Specimen #1, #2 or #3? [address] [place] [address] [address] [place], [place], [address] Range: 84-246 :05 Uric Acid Comments: Serial Specimen #1, #2 or #3? [address] [place] [address] [address]qppfh[address] [place], [place], [address] URIC 4.1 mg/dL (Normal) Range: 2.6-6.0 Comments: The drugs N-Acetylcysteine and Metamizole may falsely deressthis assay. :04 CBC W/Diff, Auto - EPLAB Comments: At [facility] [facility] Medical Oncologypatients receive CBC w/auto Differential ONLY. Physicianwill place an order for a manual differential or Pathologistreview at his discretion. [facility] OUTPATIENT [facility]. [address] [address] CLIENT APPLICATION SUPPORT SPECIALIST: KURTIS STEVENS DO PH:[phone] County [facility] Indoptduaq77[address] [place], [address] Absolute Lymph 0.78 {X10_3/uL} (Abnormal) [...] Range: 4.4-11.0 :31 CBC W/Diff, Automated Comments: [facility] Jgawqljllo6565 [address] [place], [place], [id number] OVALOCYTE 1+ (Normal) HYPOCHROMASIA 1+ (Normal) ANISO [...] K/mm3 (Normal) Range: 4.4-11.0 :35 RC Comments: Non-[facility] Laboratory - refer to report for specific site [id number] TRANSFUSED PRODUCT: T AND S with Crossmatch, Red Cells COUNT: 2 (Normal) :35 Type AND Screen Comments: CMV NEG?* NGive When? [id number]? YLeukodepleted? YReason for Type AND Screen/Red Cells: [facility]WMercy [facility] Nppqgzvugj4769 [place], [place], [address] Antibody Screen NEGATIVE (Normal) BLOOD TYPE GEL A POSITIVE (Normal) 71-Chc-913117:41 Bilirubin, Direct Comments: Serial Specimen #1, #2 or #3? 1[facility] Advjcvoduw0972 [place], [place], [address] D BILI 0.13 mg/dL (Normal) Range: 0.00-0.30 :41 CBC W/Diff, Automated Comments: PERIPHERAL BLOOD FLOW CYTOMETRYWMercy Health St. [facility] Jdywcmnmna1419 [place], [address] MICROCYTES 1+ (Normal) HYPOCHROMASIA 2+ [...] 4.2-5.4 WBC 7.0 K/mm3 (Normal) Range: 4.4-11.0 29-Ghm-563531:41 Comprehensive Metabolic Profil Comments: Serial Specimen #1, #2 or #3? 1[facility]er[facility] Szeallxyap8750 [place], [place], [address] GAP 3 (Abnormal) Range: 5-15 CO2 39.0 [...] 70-110 :41 Direct Antiglobulin Liam BRIAN Comments: [facility] Cugryhiaya5196 [facility] [place], [address] DIRECT LIAM= NEG w/POLYSPECIFIC (Normal) 27-Pmu-450926:41 Erythropoietin Comments: Is Patient Fasting? [facility] (refer to report for specific site)refer to report for address and phone number ERYTHROP [phone] 97.7 m[iU]/mL (Abnormal) Range: 2.6-18.5 30-Okt-433522:41 Ferritin Comments: Serial Specimen #1, #2 or #3? 1[facility] Qhbejzcjnv3304 [facility] [place], [address] FERRITIN 13 ng/mL (Normal) Range: 8-252 37-Rre-996626:41 Haptoglobin Comments: Is Patient Fasting? [facility] (refer to report for specific site)refer to report for address and phone number HAPTOGLOB 1628 209 mg/dL (Abnormal) Range: 34-200 Comments: Performed at: [facility] [address] [id number] Director: Elías Ludwig PhD, Phone: [phone] 01-Grh-293761:41 JEY + Protein Elect, Serum Comments: Is Patient Fasting? [facility] (refer to report for specific site)refer to report for address and phone number NOTE: Comment (Normal) Comments: Protein electrophoresis scan will follow via computer,mail, or assigner delivery. JEY RESULT,S Comment (Normal) Comments: No monoclonality detected. A/G RATIO 1.2 (Normal) Range: 0.7-1.7 GLOBULIN, TOTAL 2.9 g/dL (Normal) Range: 2.2-3.9 M-SPIKE (Normal) Comments: Not Observed GAMMA GLOBULIN 0.9 g/dL (Normal) Range: 0.4-1.8 BETA GLOBULIN 1.0 g/dL (Normal) Range: 0.7-1.3 RWSDN-1-RJVX 0.8 g/dL (Normal) Range: 0.4-1.0 VGQWO-4-DJCW 0.3 g/dL (Normal) Range: 0.0-0.4 ALBUMIN 3.3 g/dL (Normal) Range: 2.9-4.4 IMMUNOGL M 165 mg/dL (Normal) Range: 26-217 IMMUNO A 84 mg/dL (Normal) Range: 64-422 IMMUNO G 729 mg/dL (Normal) Range: 700-1600 PROTEIN,TOTAL 6.2 g/dL (Normal) Range: 6.0-8.5 05-Xjh-643118:41 Iron+Iron Binding Capacity Comments: Serial Specimen #1, #2 or #3? 1WMer[facility] Vvuazfmzew7[address] [place], [address] IRON SATURATION 4.7 % (Abnormal) Range: 15.0-55.0 IRON 25 ug/dL (Abnormal) Range: 50-170 TIBC 531 ug/dL (Abnormal) Range: 250-450 89-Mqg-108685:41 [place] Lambda Lt Chn Ser. Mon. Comments: Is [...] Comments: Serial Specimen #1, #2 or #3? 1[facility] Yqsoxqpbqb5881Narinder [place], [address] Range: 84-246 :41 Partial Thromboplast Time Comments: [facility] Sfnedbhxrp1468 Mitzi [place], [address] PTT 36.4 s (Abnormal) Range: 24.1-36.2 :41 Prothrombin Time w/INR Comments: [facility] Afcjdoqsyl8391 [address] Granda [place], [address] INR 1.1 (Normal) PROTIME 13.4 s (Normal) Range: 11.7-14.9 :41 Retic Panel Comments: PERIPHERAL BLOOD FLOW CYTOMETRYWAlexis V[place] [address] [address] [place], [address] IPF 1.3 % (Normal) Range: 1.0-7.9 Comments: [...] Comments: Serial Specimen #1, #2 or #3? 1[facility] Elgmawqkev6786 [address]itz[address] [place], [address] URIC 3.7 mg/dL (Normal) Range: 2.6-6.0 Comments: The drugs N-Acetylcysteine and Metamizole may falsely deressthis assay. :41 Vitamin B12 453 pg/mL (Normal) Comments: [facility] Oppvectjxs3629 [place], [address] Range: 211-911 :52 Fecal Occult Blood , Office (20227) Fecal Occult Blood , Office (Inhouse) positive (Normal) 01-Gsf-738736:17 CBC WITH MANUAL DIFF Comments: STANDING ORDER; PATIENT NOT FASTINGPERFORMED BY: [facility] Dhuvzs7721 [facility] [id number] Information: [id number] (70014) Hematology Comments: Note: (Normal) Comments: Verified by [...] Range: 3.4-10.8 :56 CBC W/Diff, Automated Comments: [facility] Adrcdvsfdq0030 [address] Gr[address] [place], [place], [address] SMEAR COMMENT COMMENT (Normal) Comments: SLIDE SCANNED [...] WBC Comments: PATIENT NOT FASTINGPERFORMED BY: [facility] Krfghr3329 [facility] [id number] Information: [id number] (20425) Hematology Comments: Note: (Normal) Comments: Verified by [...] present. WBC 7.5 {x10E3/uL} (Normal) Range: 3.4-10.8 0-Oif-430676:11 CBC W/Diff, Automated Comments: [facility] Vbvdbjmhwh2581 [address]. [place], [place], [address] MICROCYTES 1+ (Normal) HYPOCHROMASIA 2+ (Normal) ANISO [...] 4.2-5.4 WBC 8.7 K/mm3 (Normal) Range: 4.4-11.0 56-Iue-106951:45 HH, Hemoglobin AND Comments: [facility] Gnnnotpdnk3436 [address] [place], [place], [address] Hematocrit HCT 31.8 % (Abnormal) Range: 37-47 HGB 9.4 g/dL (Abnormal) Range: 12.0-15.0 59-Tpy-739798:53 RC Comments: Non-[facility] Laboratory - refer to report for specific site [id number] TRANSFUSED PRODUCT: T AND S with Crossmatch, Red Cells COUNT: 2 (Normal) 17-Xsz-433260:53 Type AND Screen Comments: CMV NEG?* NGive When? 09/20/15 9AMIrradiated? NLeukodepleted? YReason for Type AND Screen/Red Cells: ANEMIAWMercy [facility] Jxzovqxcpx3443 [place], [address] Antibody Screen NEGATIVE (Normal) BLOOD TYPE GEL A POSITIVE (Normal) 51-Zhw-466773:53 Type AND Screen Comments: CMV NEG?* NGive When? 09/20/15 9AMIrradiated? NLeukodepleted? YReason for Type AND Screen/Red Cells: [facility]WMercy [facility] Ajoptupxfw3117 [place], [address] Antibody Screen NEGATIVE (Normal) BLOOD TYPE GEL A POSITIVE (Normal) 05-Djl-133714:51 CBC W/Diff, Automated Comments: [facility] Rpgxujwnfi2174 [place], [address] MICROCYTES 1+ (Normal) HYPOCHROMASIA 2+ (Normal) [...] 4.2-5.4 WBC 7.6 K/mm3 (Normal) Range: 4.4-11.0 20-Szt-921040:30 CBC W/Diff, Automated Comments: [facility] Synyirlqmi3176 [address] [place], [place], [address] SMEAR COMMENT (Normal) Comments: 1+ ANISOCYTOSIS Absolute [...] 4.2-5.4 WBC 8.1 K/mm3 (Normal) Range: 4.4-11.0 76-Cpo-604941:00 CBC W/Diff, Automated Comments: [facility] Dhxsbnpimd9692 [address] [place], [place], [address] MICROCYTES 2+ (Normal) HYPOCHROMASIA 3+ (Normal) ANISO [...] 4.2-5.4 WBC 8.6 K/mm3 (Normal) Range: 4.4-11.0 46-Hzq-948933:10 CBC W/Diff, Automated Comments: [facility] Iwqafyfljy2518 [address] [place], [place], [address] SMEAR COMMENT COMMENT (Normal) Comments: SLIDE SCANNED [...] 4.2-5.4 WBC 8.2 K/mm3 (Normal) Range: 4.4-11.0 10-Xsv-139130:45 CBC W/Diff, Automated Comments: [facility] Zxjlzeujtn6350 [place], [address] OVALOCYTE RARE (Normal) HYPOCHROMASIA 1+ (Normal) ANISO [...] 4.2-5.4 WBC 9.1 K/mm3 (Normal) Range: 4.4-11.0 4-Woc-225644:30 CBC W/Diff, Automated Comments: [facility] Tmdciklnrd8126 [address] [place], [place], [address] SMEAR COMMENT SCANNED (Normal) Comments: 2+ ANISOCYTOSIS, [...] Range: 4.4-11.0 :44 CBC W/Diff, Automated Comments: [facility] Faevhucdyw4954 [address] [place], [place], [address] SMEAR COMMENT COMMENT (Normal) Comments: SLIDE SCANNED [...] 4.2-5.4 WBC 8.2 K/mm3 (Normal) Range: 4.4-11.0 2-Koh-377082:20 HH, Hemoglobin AND Hematocrit Comments: [facility] Gueazqxaqm6054 [facility] [address] [place], [place], [address] HCT 30.8 % (Abnormal) Range: 37-47 HGB 8.8 g/dL (Abnormal) Range: 12.0-15.0 26-Vdc-919757:30 Prothrombin Time w/INR Comments: [facility] Vagsclukfc[address] [facility] [address] [place], [place], [address] INR 1.0 (Normal) PROTIME 13.0 s (Normal) Range: 11.7-14.9 97-Kie-835158:48 Basic Metabolic Profile (BMP) Comments: [facility] Gvghxbhtcz3211 [facility] [place], [place], [address] GAP 3 (Abnormal) Range: 5-15 CO2 41.0 [...] Range: 70-110 :48 BNP,B-Type NATRIURETIC PEPTIDE Comments: [facility] Abbqscmudz1409 M[place]i [place], [place], [address] B-TYPE CORBIN PEP 458.2 pg/mL (Abnormal) Range: 0-100 :48 CBC W/Diff, Automated Comments: [facility] Gsbtkmyqhh5239 [address] Gr[address] [place], [place], [address] Absolute Lymph 0.66 {X10_3/ul} (Abnormal) Range: 0.83-4.51 [...] Range: 4.4-11.0 :39 CBC W/Diff, Automated Comments: [facility] Jvmhppjbls7953 [address] [place], [address] Absolute Lymph 0.93 {X10_3/ul} (Normal) [...] 4.2-5.4 WBC 9.9 K/mm3 (Normal) Range: 4.4-11.0 6-Nbn-441667:00 Basic Metabolic Profile (BMP) Comments: Serial Specimen #1, #2 or #3? 1'TROP' Serial specimen #1, #2, #3, or #4: 1WMer[facility] Tspzwmdjls8157 [address]. [place], [place], [address] GAP 5 (Normal) Range: 5-15 CO2 39.0 [...] 126 mg/dLsuggests DIABETES MELLITUS per A.D.A. criteria. 1-Gnk-835067:00 CBC W/Diff, Automated Comments: [facility] Orxhzgxloo4388 [address] [place], [place], [address] SCHISTOCYTES 1+ (Normal) OVALOCYTE RARE (Normal) HYPOCHROMASIA [...] 4.2-5.4 WBC 9.3 K/mm3 (Normal) Range: 4.4-11.0 6-Pfq-975667:00 CK-MB Quantitative and Index Comments: Serial Specimen #1, #2 or #3? 1'TROP' Serial specimen #1, #2, #3, or #4: [address] [place] [address] Jontdoddxk6389 [place], [address] CKRI 2.1 % (Abnormal) Range: 0.0-1.4 Comments: RELATIVE INDEX >1.5% IS PRESUMPTIVELY POSITIVE CPKMB 2.1 ng/mL (Normal) Range: 0.0-5.0 Comments: CK-MB and RI Interpretation MB Relative Index Non-AMI <or= 5 NA Indeterminate > 5 <or= 4 AMI > 5 > 4 CPK TOTAL 100 U/L (Normal) Range: 26-192 5-Fog-523505:00 Troponin-I Comments: Serial Specimen #1, #2 or #3? 1'TROP' Serial specimen #1, #2, #3, or #4: [address] [place] [address] Kiqaggcrvu7239 [place], [address] TROPONIN-I < 0.02 ng/mL (Normal) Comments: TROPONIN-I EXPECTED VALUES <0.05 NEGATIVE 0.06 - 0.59 AT RISK OF FL > OR = 0.60 SUGGEST FL 6-Hml-283237:50 Methymalonic Acid, Serum Comments: PATIENT NOT FASTINGPERFORMED BY: LabCoHoly Name Medical CenterZpnazy4784 [facility] [id number] BY: [address] [id number] (93673) Methylmalonic Acid, Serum 278 nmol/L (Normal) Range: 0-378 0-Afi-743662:50 VITAMIN B-12 (CYANOCOBALAMIN) Comments: PATIENT NOT FASTINGPERFORMED BY: [place] 0258170 [facility] [id number] BY: [address] [id number] (75037) Vitamin B12 692 pg/mL (Normal) Range: 211-946 9-Xll-401196:50 IRON BINDING CAPACITY Comments: PATIENT NOT FASTINGPERFORMED BY: [place] 0258170 [facility] [id number] BY: [address] [id number] (TIBC) (42239) Iron Saturation 22 % (Normal) Range: 15-55 Iron, Serum 92 ug/dL (Normal) Range: 35-155 UIBC 320 ug/dL (Normal) Range: 150-375 Iron Bind.Cap.(TIBC) 412 ug/dL (Normal) Range: 250-450 2-Zgd-335214:50 FERRITIN (75829) Comments: PATIENT NOT FASTINGPERFORMED BY: [place] 0258170 [facility] [id number] BY: [address] [id number] Ferritin, Serum 72 ng/mL (Normal) Range: 15-150 8-Vjq-719877:50 CBC, PLATELETS & AUT DIFF Comments: PATIENT NOT FASTINGPERFORMED BY: [place] 0258170 [facility] [id number] BY: [address] [id number] Information: [id number] (19527) Immature Grans (Abs) 0.0 {x10E3/uL} (Normal) Range: [...] 3.77-5.28 WBC 9.0 {x10E3/uL} (Normal) Range: 3.4-10.8 08-Nvt-046167:06 Iron Binding Capacity Comments: PATIENT WAS FASTINGPERFORMED BY: [facility] Rtgxek2565 [facility] [id number] BY: [facility] [address] [id number] Information: [id number] (TIBC) (08197) Iron Saturation 4 % (Abnormal) Range: 15-55 Iron, Serum 17 ug/dL (Abnormal) Range: 35-155 UIBC 419 ug/dL (Abnormal) Range: 150-375 Iron Bind.Cap.(TIBC) 436 ug/dL (Normal) Range: 250-450 14-Ieb-596350:06 RETICULOCYTE COUNT (31328) Comments: PATIENT WAS FASTINGPERFORMED BY: [employer] Fmsosx6998 [facility] [id number] BY: [address] [id number] Reticulocyte Count 1.2 % (Normal) Range: 0.6-2.6 78-Qwo-020917:06 LDH (LD) (LACTATE Comments: PATIENT WAS FASTINGPERFORMED BY: [facility] Kkhfnh7822 [facility] [id number] BY: [address] [id number] DEHYDROGENASE) (15664) LDH 284 [iU]/L (Abnormal) Range: 119-226 79-Hrc-749500:06 Vitamin B-12 Comments: PATIENT WAS FASTINGPERFORMED BY: [employer] Hnyzoq1071 [facility] [id number] BY: [address] [id number] (cyanocobalamin) (72175) Vitamin B12 452 pg/mL (Normal) Range: 211-946 67-Fcs-696873:06 Ferritin (35482) Comments: PATIENT WAS FASTINGPERFORMED BY: [employer] Kkqmuj9945 [facility] [id number] BY: [address] [id number] Ferritin, Serum 15 ng/mL (Normal) Range: 15-150 00-Wda-288309:06 Folic Acid Serum (55507) Comments: PATIENT WAS FASTINGPERFORMED BY: [employer] Sodycp1036 [facility] [id number] BY: [address] [id number] Folate (Folic Acid), Serum 16.7 ng/mL (Normal) Comments: A serum folate concentration of less than 3.1 ng/mL isconsidered to represent clinical deficiency. 63-Jqt-042736:06 Methymalonic Acid, Serum Comments: PATIENT WAS FASTINGPERFORMED BY: LabBeaumont Hospital6370 [facility] [id number] BY: [address] [id number] (11774) Methylmalonic Acid, Serum 321 nmol/L (Normal) Range: 0-378 87-Kia-594449:22 TSH (94952) Comments: PATIENT NOT FASTINGPERFORMED BY: [facility]6370 [facility] [id number] TSH 1.540 {uIU/mL} (Normal) Range: 0.450-4.500 49-Imz-915058:22 METABOLIC PANEL, COMPREHENSIVE Comments: PATIENT NOT FASTINGPERFORMED BY: [facility] SonicsBeaumont Hospital6370 [facility] [id number] (27038) ALT (SGPT) 13 [iU]/L (Normal) Range: 0-32 [...] Glucose, Serum 99 mg/dL (Normal) Range: 65-99 41-Ajo-027879:22 CBC W/AUTO DIFF WBC Comments: PATIENT NOT FASTINGPERFORMED BY: NERIS [facility] Syiwni4299 Fei [facility] [id number] Information: [id number] DL (89793) Immature Grans (Abs) 0.0 {x10E3/uL} (Normal) Range: [...] 3.77-5.28 WBC 8.4 {x10E3/uL} (Normal) Range: 3.4-10.8 17-Ind-776397:22 Lipid Profile Comments: Test performed at:[facility] Sehvvsdgmg4341 [place] [address] VLDL 17 mg/dL (Normal) Range: 5-40 LDL [...] 200-240 mg/dL Borderline >240 mg/dL High Risk 56-Xzm-892675:22 Liver Profile Comments: Test performed at:[facility] Sgglxbcyed9299 [facility] [place] [address] D BILI 0.09 mg/dL (Normal) Range: 0.00-0.30 T BILI 0.30 mg/dL (Normal) Range: 0.20-1.00 ALT 30 U/L (Normal) Range: 12-78 ALK P 96 U/L (Normal) Range: 50-136 AST 29 U/L (Normal) Range: 15-37 GLOB 3.3 g/dL (Normal) Range: 2.3-3.5 ALB 3.5 g/dL (Normal) Range: 3.4-5.0 T PROT 6.8 g/dL (Normal) Range: 6.4-8.2 3-Iwj-743881:58 Miscellaneous Lab Procedure Comments: RUN LOWEST TESTComments: [id number] URINE TOXICOLOGYTest(s) Ordered: [id number] URINE TOXICOLOGYTest performed at:[facility] Fnnzmnypmt9878 [facility] oJse LuisKing[place], [place] 330[address] [facility] Comments: [id number] 6+OXYCODONE-BUND (ng/mL)DRUG RESULT SCREEN CUTOFF____ Amphetamines,Urine Negat LAB (Normal) terri ng/mL 1000Amphetamine test includes Amphetamine and Methamphetamine.Barbiturates Negative ng/mL 200Benzodiazepines Negative ng/mL 200Cannabinoid TEST Negative ng/mL 20Cocaine (Metab) Negative ng/mL 300Opiates Negative ng/mL 300 Opiates test includes Codeine, Morphine, Hydromorphone, [place] codone.Oxycodone/Oxymorphone,Urine Positive ng/mL 300 Test includes Oxydodone and Oxymorphone.Oxycodone Positive Oxycodone (GC/MS) 942 ng/mL 300Oxymorphone Positive Oxymorphone (GC/MS) 1150 ng/mL 300 TESTING PERFORMED AT [facility]. ORIGINAL REPORT ON FILE IN LAB C [facility] ADDITIONAL TEST SITE INFORMATION. 7-Duo-599804:58 Urine Drug Screen (VISTA) Comments: Comments: [id number] URINE TOXICOLOGYList of Drugs Taken or Suspected? UNKNOWNTest performed at:[facility] Nzuasfjinp2524 [place] [address] THC NEGATIVE (Normal) PCP NEGATIVE [...] TESTING MUST BE ORDERED SEPARATELY. USE TESTMNEMONIC: [facility] 46-Pye-445238:19 Anti-dsDNA Ab Comments: Test performed at:[facility] Zskfpfkxnw6755 [place] [address] dsDNA AB 4 {IU/mL} (Normal) Range: 0-9 Comments: Negative <5 Equivocal 5 - 9 Positive >9Performed at: - [facility] Szdaaz4773 [place], [place] [id number] D irector: Johnathan Junior PhD, Phone: [phone] 90-Zgd-818951:19 CBC W/Diff, Automated Comments: Test performed at:[facility] Yabonkdars5340 [place], [place] [address] Absolute Lymph 0.78 {X10_3/ul} (Abnormal) Range: 0.83-4.51 [...] 4.2-5.4 WBC 9.5 K/mm3 (Normal) Range: 4.4-11.0 28-Fih-567702:19 Complement C3 Comments: Test performed at:[facility] Kzumfohgwp3811 [place] [address] COMP C3 135 (Normal) Range: 90-180 Comments: Result Units: mg/dL AdultPerformed at: - [facility] [address] [id number] Director: Johnathan Junior PhD, Phone: [phone] 13-Zjo-339129:19 Complement C4 Comments: Test performed at:[facility] [address]bmcaqeumt[address] [place] [address] COMP C4 27 (Normal) Range: 9-36 Comments: Result Units: mg/dL Adult 29-Rri-814046:19 Comprehensive Metabolic Profil Comments: Test performed at:[facility] Mtorfhoyew5730 [place] [address] GAP 8 (Normal) Range: 5-15 [...] 7-18 GLU 92 mg/dL (Normal) Range: 70-110 36-Auf-577422:19 Protein+Creatinine Ratio,Urine Comments: Test performed at:[facility] Tdcuegjknj6711 [address] [place], [place] [address] PROT:CRE RATIO 334 {mg/g_CRE} (Abnormal) Range: 0-200 PROTEIN,UR.RAN. 32.8 mg/dL (Abnormal) UR CREAT 98.0 mg/dL (Normal) 46-Pbs-527604:19 Urinalysis, Complete Comments: How was Urine Obtained? CLEAN CATCHTest performed at:[facility] Thctajqlpw1121 [address] [place], [place] [address] HYALINE CAST 5-10 SEEN {/lpf} (Normal) Range: [...] CLARITY Sl. Cloudy (Normal) COLOR Yellow (Normal) 12-Rzs-261379:41 CBC With Differential/Platelet Comments: PATIENT NOT FASTINGPERFORMED BY: LabCoHoly Name Medical CenterAmfwlf3830 [facility] [id number] Information: [id number] Immature Grans (Abs) 0.0 {x10E3/uL} (Normal) Range: [...] Basic Metabolic Profile (BMP) Comments: Test performed at:[facility] Booatvvktl5487 [place] [address] GAP 3 (Abnormal) Range: 5-15 CO2 33.0 mmol/L (Abnormal) Range: 21.0-32.0 CL 101 mmol/L (Normal) Range: 98-107 K 3.9 mmol/L (Normal) Range: 3.5-5.1 NA 137 mmol/L (Normal) Range: 136-145 CA 8.3 mg/dL (Abnormal) Range: 8.5-10.1 BUN/CRE 26.3 {RATIO} (Abnormal) Range: 10-20 CREAT,SERUM 0.8 mg/dL (Normal) Range: 0.6-1.0 BUN 21 mg/dL (Abnormal) Range: 7-18 GLU 85 mg/dL (Normal) Range: 70-110 35-Zjl-099733:43 CBC W/Diff, Automated Comments: Test performed at:[facility] Ivabxszkjt9602 [facility] [place] [address] Absolute Lymph 0.85 {X10_3/ul} (Normal) [...] #1, #2, #3, or #4: 1Test performed at:[facility] Icuuftpxbm5451 [facility] [address]. [place], [place] [address] GAP 5 (Normal) Range: 5-15 CO2 38.0 [...] :40 CBC W/Diff, Automated Comments: Test performed at:[facility] Rfqufqarxp3311 [place] [address] Absolute Lymph 1.10 {X10_3/ul} (Normal) Range: 0.83-4.51 [...] #1, #2, #3, or #4: 1Test performed at:[facility] [address] [place] [address] CPKMB 1.4 ng/mL (Normal) Range: 0.0-5.0 Comments: CK-MB and RI Interpretation MB Relative Index Non-AMI <or= 5 NA Indeterminate > 5 <or= 4 AMI > 5 > 4 CPK TOTAL 133 U/L (Normal) Range: 26-192 :40 Troponin-I Comments: Serial Specimen #1, #2 or #3? 1'TROP' Serial specimen #1, #2, #3, or #4: 1Test performed at:[facility] [address]ib[address] [place] [address] TROPONIN-I < 0.02 ng/mL (Normal) Comments: TROPONIN-I EXPECTED VALUES <0.05 NEGATIVE 0.06 - 0.59 AT RISK OF FL > OR = 0.60 SUGGEST FL :30 Basic Metabolic Profile (BMP) Comments: Test performed at:[facility] [address] [place] [address] GAP 6 (Normal) Range: 5-15 [...] :30 CBC W/Diff, Automated Comments: Test performed at:[facility] Urpvhzkvjl1993 [facility] [place] [address] Absolute Lymph 0.79 {X10_3/ul} (Abnormal) [...] 4.2-5.4 WBC 10.2 K/mm3 (Normal) Range: 4.4-11.0 [id number] Lipid Profile Comments: Test performed at:[facility] [id number] [facility] [place] [address] VLDL 16 mg/dL (Normal) Range: [...] 200-240 mg/dL Borderline >240 mg/dL High Risk [id number] Liver Profile Comments: Test performed at:[facility] [address], [place] [address] D BILI 0.09 mg/dL (Normal) Range: 0.00-0.30 T BILI 0.30 mg/dL (Normal) Range: 0.00-4.00 ALT 29 U/L (Normal) Range: 12-78 ALK P 116 U/L (Normal) Range: 50-136 AST 29 U/L (Normal) Range: 15-37 GLOB 3.6 g/dL (Normal) Range: 2.7-4.2 ALB 3.3 g/dL (Abnormal) Range: 3.4-5.0 T PROT 6.9 g/dL (Normal) Range: 6.4-8.2 [id number] IRON BINDING CAPACITY (TIBC) Comments: PATIENT NOT FASTINGPERFORMED BY: [employer] [facility] [id number] ([id number]) Iron Saturation 13 % (Abnormal) Range: 15-55 Iron, Serum 51 ug/dL (Normal) Range: 35-155 UIBC 328 ug/dL (Normal) Range: 150-375 Iron Bind.Cap.(TIBC) 379 ug/dL (Normal) Range: 250-450 [id number] FERRITIN ([id number]) Comments: PATIENT NOT FASTINGPERFORMED BY: PogoappCoHoly Name Medical CenterZavhno7877 [facility] [id number] Ferritin, Serum 33 ng/mL (Normal) Range: 15-150 92-Bbm-333860:50 CBC W/AUTO DIFF WBC Comments: PATIENT NOT FASTINGPERFORMED BY: CMS Global TechnologiesHoly Name Medical CenterCbzrnk2501 [facility] [id number] Information: [id number] (60685) Immature Grans (Abs) 0.0 {x10E3/uL} (Normal) Range: [...] 3.77-5.28 WBC 11.0 {x10E3/uL} (Abnormal) Range: 3.4-10.8 98-Kxg-808419:59 FECAL OCCULT- Tubes sent home (12091) FECAL OCCULT HGB ASSAY, QUAL, 1-3 SIMULTANEOU negative (Normal) 26-Jdg-415077:10 VITAMIN B-12 (CYANOCOBALAMIN) Comments: PATIENT NOT FASTINGPERFORMED BY: [facility]6370 [facility] [id number] (92996) Vitamin B12 528 pg/mL (Normal) Range: 211-946 27-Hkr-824706:10 RETICULOCYTE COUNT MANUL Comments: PATIENT NOT FASTINGPERFORMED BY: NERIS DailyLook Zgvezp4086 [facility] [id number] ([id number]) Reticulocyte Count 2.9 % (Abnormal) Range: 0.6-2.6 94-Cvt-711725:10 LDH (LD) (LACTATE DEHYDROGENASE) Comments: PATIENT NOT FASTINGPERFORMED BY: Flodesign SonicsBeaumont Hospital6370 [facility] [id number] (67859) LDH 308 [iU]/L (Abnormal) Range: 119-226 98-Lnx-642021:10 IRON BINDING CAPACITY (TIBC) Comments: PATIENT NOT FASTINGPERFORMED BY: Flodesign SonicsBeaumont Hospital6370 [facility] [id number] (45985) Iron Saturation 26 % (Normal) Range: 15-55 Iron, Serum 104 ug/dL (Normal) Range: 35-155 UIBC 298 ug/dL (Normal) Range: 150-375 Iron Bind.Cap.(TIBC) 402 ug/dL (Normal) Range: 250-450 01-Gco-199110:10 FERRITIN (39901) Comments: PATIENT NOT FASTINGPERFORMED BY: [facility] SonicsBe[facility]ont Hospital6370 [facility] [id number] Ferritin, Serum 47 ng/mL (Normal) Range: 15-150 48-Skj-298502:10 CBC, PLATELETS & AUT DIFF Comments: PATIENT NOT FASTINGPERFORMED BY: [facility]ign SonicsBeaumont Hospital6370 [facility] [id number] Information: [id number] (50359) Immature Grans (Abs) 0.0 {x10E3/uL} (Normal) Range: [...] 3.77-5.28 WBC 7.2 {x10E3/uL} (Normal) Range: 3.4-10.8 60-Sau-445626:06 CBC-Complete Blood Cnt No Diff Comments: Test performed at:[facility] Ihbdotfysy[address] [place], [place] [address] MPV 10.6 fL (Normal) Range: 6.2-12.0 PLT [...] 4.2-5.4 WBC 8.2 K/mm3 (Normal) Range: 4.4-11.0 76-Mld-370811:25 Basic Metabolic Profile (BMP) Comments: Serial Specimen #1, #2 or #3? 1'TROP' Serial specimen #1, #2, #3, or #4: 1Test performed at:[facility] Abmzgcfffx[address] [address] GAP 3 (Abnormal) Range: 5-15 [...] 126 mg/dLsuggests DIABETES MELLITUS per A.D.A. criteria. 41-Yiz-535938:25 CBC W/Diff, Automated Comments: Test performed at:[facility] Btaxijueol4405 [facility] [place] [address] Absolute Lymph 1.07 {X10_3/ul} (Normal) [...] 4.2-5.4 WBC 7.0 K/mm3 (Normal) Range: 4.4-11.0 49-Dot-535823:25 CK-MB Quantitative and Index Comments: Serial Specimen #1, #2 or #3? 1'TROP' Serial specimen #1, #2, #3, or #4: 1Test performed at:[facility] [address] [place] [address] CPKMB 1.8 ng/mL (Normal) Range: 0.0-5.0 Comments: CK-MB and RI Interpretation MB Relative Index Non-AMI <or= 5 NA Indeterminate > 5 <or= 4 AMI > 5 > 4 CPK TOTAL 165 U/L (Normal) Range: 26-192 95-Zdf-944242:25 Troponin-I Comments: Serial Specimen #1, #2 or #3? 1'TROP' Serial specimen #1, #2, #3, or #4: 1Test performed at:[facility] [address] [place] [address] TROPONIN-I < 0.02 ng/mL (Normal) Comments: TROPONIN-I EXPECTED VALUES <0.05 NEGATIVE 0.06 - 0.59 AT RISK OF FL > OR = 0.60 SUGGEST FL 93-Nlr-340657:04 BMP GAP 2 (Abnormal) Range: 5-15 CO2 [...] Result Units: mg/dL AdultPerformed at: - [facility] [address] [id number] Director: Johnathan Junior PhD, Phone: [phone] C4 26 (Normal) Range: 9-36 Comments: [...] - 9Positive >9Performed at: CB - [facility] [address] [id number] Director: Johnathan Junior PhD, Phone: [phone] PROCRER tPROCRER 392 {mg/g_CRE} (Abnormal) Range: 0-200 PROUR 10.0 mg/dL (Normal) CREU 25.5 mg/dL (Normal) :00 [facility] Comments: How was Urine Obtained? CLEAN CATCH [...] (Normal) :54 CBC, PLATELETS & MANUAL DIFF (25727) Comments: recheck 03-08-14:11 B12 817 pg/mL (Normal) [...] Please note reference interval changePerformed at: - [address] [id number] Director: Ciaran Valles MD, Phone: [phone] RETIC retIPF 1.5 % (Normal) Range: [...] or Folic Acid Supplements? N Range: 250-450 07-Rxc-117809:11 TS Comments: CMV NEG?* NGive When? 02/22@0800Irradiated? NLeukodepleted? YReason for Type & Screen/Red Cells: ANEMIA SC3 NEGATIVE (Normal) SC2 NEGATIVE (Normal) SC1 NEGATIVE (Normal) ABS NEGATIVE (Normal) BT A POSITIVE (Normal) 26-Wpo-970237:25 FECAL OCCULT- Tubes sent home (99121) FECAL OCCULT HGB ASSAY, QUAL, negative (Normal) 1-[address] [facility] :08 HCT 29.9 % (Abnormal) Range: [...] 7-18 GLU 88 mg/dL (Normal) Range: 70-110 3-Lpv-352264:11 BTNP 235.3 pg/mL (Abnormal) Range: 0-100 :11 [...] CHOL 140 mg/dL (Normal) Comments: <200 mg/dL Szsxkjjyy073-347 mg/dL Borderline>240 mg/dL High Risk TRIG 61 [...] 3.4-5.0 TPROT 6.8 g/dL (Normal) Range: 6.4-8.2 4-Wrx-486151:19 Metabolic Panel, Basic Comments: PATIENT NOT FASTINGPERFORMED BY: NERIS Flodesign SonicsCoHoly Name Medical CenterMdjlmw8547 [facility] [id number] Information: [id number] (56867) Calcium, Serum 9.1 mg/dL (Normal) Range: 8.6-10.2 [...] Glucose, Serum 75 mg/dL (Normal) Range: 65-99 66-Rnl-246986:39 CBC With Differential/Platelet Comments: PERFORMED BY: NERIS LabCoHoly Name Medical CenterOctebp4970 [facility] [id number] Information: 08/09@7AM 08/10@7AM Immature Grans (Abs) 0.0 [...] 3.77-5.28 WBC 8.9 {x10E3/uL} (Normal) Range: 4.0-10.5 28-Nmp-870743:39 Comp. Metabolic Panel (14) Comments: PERFORMED BY: LabCoHoly Name Medical CenterSzsxnp1562 [facility] [id number] ALT (SGPT) 27 [iU]/L (Normal) Range: 0-32 [...] 65-99 :39 Creatinine Clearance Comments: PERFORMED BY: [employer] [facility] [id number] Creatinine Clearance 95 mL/min (Normal) Range: 88-128 Comments: The above range is based on 1.73 square meter average body surfacearea. Creatinine, Ur 24hr 1035.0 {mg/24_hr} Range: 800.0-1800.0 (Normal) Creatinine, Urine 57.5 mg/dL (Normal) Range: 15.0-278.0 Magnesium, Serum 1.9 mg/dL (Normal) Comments: PERFORMED BY: [employer] [facility] [id number] :39 Range: 1.6-2.6 :39 Microalbumin, 24 hr Urine Comments: PERFORMED BY: [employer] [facility] [id number] Microalbumin, Urine 83.6 ug/mL (Abnormal) Range: 0.0-17.0 Microalbumin,mg/day 150.5 {mg/day} (Abnormal) Phosphorus, Serum 4.0 mg/dL (Normal) Comments: PERFORMED BY: [employer] [facility] [id number] 3:39 Range: 2.5-4.5 :39 Protein Electro, Random Urine Comments: PERFORMED BY: [employer] [facility] [id number] Please note: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 [place] artery Hypertension, renal disease : Continue Current Prescription(s) Indication: Hypertension, renal disease COPD, moderate : Reviewed Insurance Claims Analyst Letter Indication: COPD, moderate COPD, moderate : Continue Current Prescription(s) Indication: COPD, moderate Hypercholesteremia : Eprescribed prescriptions (G8553) Indication: Hypercholesteremia Epistaxis : Follow up in 3 weeks-4 gen med with chapis Indication: Epistaxis Epistaxis : Reviewed Lab Indication: Epistaxis Epistaxis : Reviewed Insurance Claims Analyst Letter Indication: Epistaxis Pelvis fracture, right : Reviewed Insurance Claims Analyst Letter Indication: Pelvis fracture, right Strain of [...] Prescription(s) Indication: COPD, moderate Lupus : Reviewed Insurance Claims Analyst Letter Indication: Lupus Hypertension, renal disease : [...] Indication: ERYTHEMATOSUS, LUPUS ERYTHEMATOSUS, LUPUS : Reviewed Insurance Claims Analyst Letter Indication: ERYTHEMATOSUS, LUPUS Hypertension, renal disease [...] LUMBAR INTERVERTEBRAL DISC WITHOUT MYELOPATHY : Reviewed Insurance Claims Analyst Letter 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 Hypercholesteremia : Follow up in 3 months gen med Indication: Hypercholesteremia Chronic kidney disease (CKD), stage 2 (mild) : Eprescribed prescriptions (G8553) Indication: Chronic kidney disease (CKD), 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), stage 2 (mild) : consultation letter Indication: Chronic kidney disease (CKD), stage 2 (mild) COPD, moderate : Reviewed Insurance Claims Analyst Letter Indication: COPD, moderate Hypertension, renal disease : Continue Current Prescription(s) Indication: Hypertension, renal disease Hypertension, renal disease : HTN/CAD Red Flags Indication: Hypertension, renal disease Hypercholesteremia : Cholesterol mgmt Indication: Hypercholesteremia Anemia, unspecified : Reviewed Lab Indication: Anemia, unspecified Anemia, unspecified : Reviewed Diagnostic Tests Indication: Anemia, unspecified Anemia, unspecified : Reviewed Insurance Claims Analyst Letter Indication: Anemia, unspecified COPD, moderate : Reviewed Insurance Claims Analyst Letter: dr ascencio Indication: COPD, moderate COPD, [...] Indication: Anemia, unspecified Anemia, unspecified : Reviewed Insurance Claims Analyst Letter Indication: Anemia, unspecified Anemia, unspecified : Anemia: diagnosis and treatment Indication: Anemia, unspecified Mitral valve failure : Reviewed Insurance Claims Analyst Letter Indication: Mitral valve failure Encounter for [...] Artery Disease Coronary Artery Disease : Reviewed Insurance Claims Analyst Letter Indication: Coronary Artery Disease COPD, moderate : Continue Current Prescription(s) Indication: COPD, moderate Hypercholesteremia : Reviewed Lab Indication: Hypercholesteremia Chronic kidney disease (CKD), stage 2 (mild) : Reviewed Insurance Claims Analyst Letter Indication: Chronic kidney disease (CKD), stage 2 (mild) Hypertension, renal disease : Follow up in 3 months Indication: Hypertension, renal disease Hypertension, renal disease : Continue Current Prescription(s) Indication: Hypertension, renal disease ERYTHEMATOSUS, LUPUS : Reviewed Insurance Claims Analyst Letter Indication: ERYTHEMATOSUS, LUPUS Hypertension, renal disease [...] cyst (Renamed from Kidney cysts) : Reviewed Insurance Claims Analyst Letter Indication: Renal cyst (Renamed from Kidney cysts) Hypertension, renal disease : Allergies: allergen Indication: Hypertension, renal disease Hypertension, renal disease : Follow up in 2-3 weeks Indication: Hypertension, renal disease Hypertension, renal disease : Reviewed Lab Indication: Hypertension, renal disease Hypertension, renal disease : High Blood Pressure (Essential Hypertension) *: blood pressure problems Indication: Hypertension, renal disease Hypertension, renal disease : Reviewed Insurance Claims Analyst Letter Indication: Hypertension, renal disease Hypertension, renal [...] Tests Indication: Osteopenia ERYTHEMATOSUS, LUPUS : Reviewed Insurance Claims Analyst Letter Indication: ERYTHEMATOSUS, LUPUS Hypertension, renal disease [...] Hypertension, renal disease ERYTHEMATOSUS, LUPUS : Reviewed Insurance Claims Analyst Letter Indication: ERYTHEMATOSUS, LUPUS Hypercholesteremia : *Cholesterol [...] exacerbation of COPD with asthma : Reviewed Insurance Claims Analyst Letter Indication: Acute exacerbation of COPD with [...] Indication: Osteopenia SYMPTOM, ABNORMALITY, GAIT : Reviewed Insurance Claims Analyst Letter Indication: SYMPTOM, ABNORMALITY, GAIT Hypercholesteremia : [...] Indication: ERYTHEMATOSUS, LUPUS ERYTHEMATOSUS, LUPUS : Reviewed Insurance Claims Analyst Letter Indication: ERYTHEMATOSUS, LUPUS Hypertension, renal disease [...] Spinal stenosis of lumbar region : Reviewed Insurance Claims Analyst Letter Indication: Spinal stenosis of lumbar region [...] Cervical strain Planned Observations URINALYSIS, W/ MICRO ([id number])Indication: Hypertension, renal disease On: :09 Request MICROALBUMIN: CREATININE RATIO (30018) AND (12540)Indication: Hypertension, renal disease On: :09 Request METABOLIC PANEL, COMPREHENSIVE (45265)Indication: Hypertension, renal disease On: :09 Request CBC W/AUTO DIFF WBC ([id number])Indication: Hypertension, renal disease On: : Request TSH (46052)Indication: Sinus bradycardia On: :08 Request CALCIFEDIOL (22994)Indication: Vitamin D deficiency On: :07 Request VITAMIN B-12 (CYANOCOBALAMIN) (20329)Indication: Other vitamin B12 deficiency anemia On: : Request LIPID PANEL (16204)Indication: Hypercholesteremia On: :07 Request CBC WITH MANUAL DIFF ([id number])Indication: Other vitamin B12 deficiency anemia On: :20 Request VITAMIN B-12 (CYANOCOBALAMIN) (90539)Indication: Other vitamin B12 deficiency anemia On: :20 Request Metabolic Panel, Basic (32848)Indication: Hypopotassemia On: :09 Request Comments: re check one week VITAMIN B-12 (CYANOCOBALAMIN) (74237)Indication: Other vitamin B12 deficiency anemia On: :48 Request LIPID PANEL (44821)Indication: Hypertension, renal disease On: :46 Request MAGNESIUM (99548)Indication: Hypopotassemia On: :44 Request POTASSIUM SERUM (65372)Indication: Hypopotassemia On: :44 Request TSH (88105)Indication: Sinus bradycardia On: :35 Request CALCIFEDIOL (76532)Indication: Vitamin D deficiency On: :35 Request LIPID PANEL (36381)Indication: Hypercholesteremia On: 01-Jij-800711:35 Request URINALYSIS, W/ MICRO (66407)Indication: Hypertension with heart disease On: 32-Cmf-231375:20 Request MICROALBUMIN: CREATININE RATIO (05448) AND (51961)Indication: Hypertension with heart disease On: 56-Kbm-110837:20 Request TSH (65064)Indication: Hypercholesteremia On: : Request URINALYSIS, W/ MICRO (31887)Indication: Hypertension, renal disease On: : Request MICROALBUMIN: CREATININE RATIO (23565) AND (27323)Indication: Hypertension, renal disease On: : Request METABOLIC PANEL, COMPREHENSIVE (67993)Indication: Hypertension, renal disease On: : Request LIPID PANEL (53099)Indication: Hypercholesteremia On: : Request CBC W/AUTO DIFF WBC ([id number])Indication: Hypertension, renal disease On: : Request VITAMIN B-12 (CYANOCOBALAMIN) (47033)Indication: Other vitamin B12 deficiency anemia On: :19 Request CBC WITH MANUAL DIFF ([id number])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 On: 17-Feb-2016 Request Comments: STANDING ORDER CBC WITH MANUAL DIFF ([id number])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 On: 03-Feb-2016 Request Comments: STANDING ORDER CBC WITH MANUAL DIFF ([id number])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 On: 20-Jan-2016 Request Comments: STANDING ORDER CBC WITH MANUAL DIFF ([id number])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 On: 06-Jan-2016 Request Comments: STANDING ORDER CBC WITH MANUAL DIFF ([id number])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 On: 23-Dec-2015 Request Comments: STANDING ORDER CBC WITH MANUAL DIFF ([id number])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 On: 09-Dec-2015 Request Comments: STANDING ORDER CBC WITH MANUAL DIFF ([id number])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 On: 25-Nov-2015 Request Comments: STANDING ORDER CBC W/AUTO DIFF WBC ([id number])Indication: Anemia, unspecified On: 23-Nov-2015 Request CBC W/AUTO DIFF WBC ([id number])Indication: Anemia, unspecified On: 20-Nov-2015 Request CBC W/AUTO DIFF WBC ([id number])Indication: Anemia, unspecified On: 17-Nov-2015 Request CBC W/AUTO DIFF WBC ([id number])Indication: Anemia, unspecified On: 14-Nov-2015 Request CBC W/AUTO DIFF WBC ([id number])Indication: Anemia, unspecified On: 11-Nov-2015 Request CBC WITH MANUAL DIFF ([id number])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 On: 11-Nov-2015 Request Comments: STANDING ORDER CBC W/AUTO DIFF WBC ([id number])Indication: Anemia, unspecified On: 08-Nov-2015 Request CBC W/AUTO DIFF WBC ([id number])Indication: Anemia, unspecified On: 05-Nov-2015 Request CBC W/AUTO DIFF WBC ([id number])Indication: Anemia, unspecified On: 02-Nov-2015 Request CBC W/AUTO DIFF WBC ([id number])Indication: Anemia, unspecified On: 30-Oct-2015 Request CBC WITH MANUAL DIFF ([id number])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 On: 28-Oct-2015 Request Comments: STANDING ORDER CBC W/AUTO DIFF WBC ([id number])Indication: Anemia, unspecified On: 27-Oct-2015 Request CBC W/AUTO DIFF WBC ([id number])Indication: Anemia, unspecified On: 24-Oct-2015 Request CBC W/AUTO DIFF WBC ([id number])Indication: Anemia, unspecified On: 21-Oct-2015 Request CBC W/AUTO DIFF WBC ([id number])Indication: Anemia, unspecified On: 18-Oct-2015 Request CBC W/AUTO DIFF WBC ([id number])Indication: Anemia, unspecified On: 15-Oct-2015 Request CBC W/AUTO DIFF WBC ([id number])Indication: Anemia, unspecified On: 12-Oct-2015 Request CBC WITH MANUAL DIFF ([id number])Indication: Unspecified Diagnosis On: 72-Vgc-885957:43 Request CBC W/AUTO DIFF WBC ([id number])Indication: Anemia, unspecified On: 09-Oct-2015 Request FECAL OCCULT- Tubes sent home ([id number])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 On: 42-Pyj-206912:23 Request CBC W/AUTO DIFF WBC ([id number])Indication: Anemia, unspecified On: 06-Oct-2015 Request CBC W/AUTO DIFF WBC ([id number])Indication: Anemia, unspecified On: 03-Oct-2015 Request CBC W/AUTO DIFF WBC ([id number])Indication: Anemia, unspecified On: 30-Sep-2015 Request CBC WITH MANUAL DIFF ([id number])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 On: 30-Sep-2015 Request Comments: STANDING ORDER CBC W/AUTO DIFF WBC ([id number])Indication: Anemia, unspecified On: 27-Sep-2015 Request CBC W/AUTO DIFF WBC ([id number])Indication: Anemia, unspecified On: 24-Sep-2015 Request CBC W/AUTO DIFF WBC ([id number])Indication: Anemia, unspecified On: 21-Sep-2015 Request HEMOGLOBIN & HEMATOCRITIndication: Low hemoglobin and low hematocrit On: 10-Jdv-350074:44 Request CBC W/AUTO DIFF WBC ([id number])Indication: Anemia, unspecified On: 18-Sep-2015 Request CBC WITH MANUAL DIFF ([id number])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 On: 67-Fqo-026333:26 Request Comments: STANDING ORDER CBC W/AUTO DIFF WBC ([id number])Indication: Anemia, unspecified On: 15-Sep-2015 Request CBC W/AUTO DIFF WBC ([id number])Indication: Anemia, unspecified On: 12-Sep-2015 Request CBC W/AUTO DIFF WBC ([id number])Indication: Anemia, unspecified On: 09-Sep-2015 Request CBC W/AUTO DIFF WBC ([id number])Indication: Anemia, unspecified On: 06-Sep-2015 Request CBC W/AUTO DIFF WBC ([id number])Indication: Anemia, unspecified On: 03-Sep-2015 Request CBC W/AUTO DIFF WBC ([id number])Indication: Anemia, unspecified On: 31-Aug-2015 Request CBC W/AUTO DIFF WBC ([id number])Indication: Anemia, unspecified On: 1-Hrj-728611:38 Request Urine Protein Electrophoresis (UPEP) ([id number])Indication: Chronic kidney disease (CKD), stage 2 (mild) On: 97-Udn-960428:18 Request Serum Protein Electrophoresis (SPEP) ([id number])Indication: Chronic kidney disease (CKD), stage 2 (mild) On: 80-Kwh-801551:18 Request MAGNESIUM ([id number])Indication: Chronic kidney disease (CKD), stage 2 (mild) On: 49-Ywy-128692:18 Request PHOSPHORUS ([id number])Indication: Chronic kidney disease (CKD), stage 2 (mild) On: 99-Yiv-212362:18 Request CALCIFEDIOL ([id number])Indication: Chronic kidney disease (CKD), stage 2 (mild) On: 78-Zbq-683085:18 Request PARATHORMONE ([id number])Indication: Chronic kidney disease (CKD), stage 2 (mild) On: 90-Vwp-076932:18 Request TSH ([id number])Indication: CAD in [place] artery On: :16 Request URINALYSIS, W/ MICRO ([id number])Indication: Hypertension, renal disease On: :16 Request MICROALBUMIN: CREATININE RATIO ([id number]) AND (54415)Indication: Hypertension, renal disease On: :16 Request METABOLIC PANEL, COMPREHENSIVE (23893)Indication: Hypertension, renal disease On: :16 Request LIPID PANEL (81654)Indication: Hypercholesteremia On: :16 Request CBC W/AUTO DIFF WBC ([id number])Indication: Hypertension, renal disease On: 90-Hrp-737342:16 Request HCT (Hematocrit) (61892)Indication: Abnormal blood chemistry On: 2-Hia-744312:00 Request HGB (HEMOGLOBIN) ([id number])Indication: Abnormal blood chemistry On: 7-Szr-634677:00 Request IRON ([id number])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 On: 38-Bwr-093538:32 Request Iron ([id number])Indication: Anemia, unspecified On: 68-Azw-396984:31 Request CBC W/AUTO DIFF WBC (21425)Indication: Anemia, unspecified On: 56-Lkk-750833:37 Request IRON ([id number])Indication: Anemia, unspecified On: 16-Ojy-337715:41 Request IRON ([id number])Indication: Anemia, unspecified On: 54-Nth-282791:59 Request CBC, PLATELETS & MANUAL DIFF ([id number])Indication: Anemia, unspecified On: 7-Oat-439241:54 Request Comments: recheck 03-08-14 LIAM TEST, DIRECT ([id number])Indication: Anemia, unspecified On: 44-Iux-603449:25 Request FOLIC ACID SERUM (14519)Indication: Anemia, unspecified On: Request Methymalonic Acid, Serum (28778)Indication: Anemia, unspecified On: Request VITAMIN B-12 (CYANOCOBALAMIN) ([id number])Indication: Anemia, unspecified On: : Request RETICULOCYTE COUNT MANUL ([id number])Indication: Anemia, unspecified On: Request LDH (LD) (LACTATE DEHYDROGENASE) (03904)Indication: Anemia, unspecified On: Request IRON BINDING CAPACITY (TIBC) (71062)Indication: Anemia, unspecified On: Request IRON ([id number])Indication: Anemia, unspecified On: Request FERRITIN (01241)Indication: Anemia, unspecified On: Request CBC, PLATELETS & AUT DIFF (39184)Indication: Anemia, unspecified On: Request HCT (Hematocrit) (99925)Indication: Abnormal blood chemistry On: :18 Request Comments: stat HGB (HEMOGLOBIN) (33049)Indication: Abnormal blood chemistry On: :17 Request Comments: stat FECAL OCCULT HGB ASSAY- tubes sent home (41075)Indication: Encounter for Medicare annual wellness exam On: 60-Sbf-648048:46 Request TSH (54413)Indication: Hypertension, renal disease On: :07 Request URINALYSIS, W/ MICRO ([id number])Indication: Hypertension, renal disease On: 4-Aan-847856:07 Request MICROALBUMIN: CREATININE RATIO (52327) AND (70862)Indication: Hypertension, renal disease On: 7-Wir-694871:06 Request METABOLIC PANEL, COMPREHENSIVE (16202)Indication: Hypertension, renal disease On: : Request LIPID PANEL (04252)Indication: Hypertension, renal disease On: : Request CBC WITH MANUAL DIFF (56574)Indication: Hypertension, renal disease On: 8-Rfy-228417:06 Request Metabolic Panel, Basic ([id number])Indication: Hypertension, renal disease On: 1-Mpa-389078:34 Request CREATININE CLEARANCE (15020)Indication: Hypertension, renal disease On: :52 Request CBC WITH MANUAL DIFF ([id number])Indication: Hypertension, renal disease On: :32 Request METABOLIC PANEL, COMPREHENSIVE (84591)Indication: Hypertension, renal disease On: :32 Request Sed Rate Erythrocyte (07969)Indication: Hypertension, renal disease On: :32 Request MICROALBUMIN 24 HOUR OR RANDOM ([id number])Indication: Hypertension, renal disease On: :32 Request Urine Protein Electrophoresis (UPEP) (08341)Indication: Hypertension, renal disease On: : Request Serum Protein Electrophoresis (SPEP) (67958)Indication: Hypertension, renal disease On: : Request MAGNESIUM (27965)Indication: Hypertension, renal disease On: :32 Request PHOSPHORUS (49907)Indication: Hypertension, renal disease On: :32 Request CALCIFEDIOL ([id number])Indication: Hypertension, renal disease On: :32 Request PARATHORMONE (33046)Indication: Hypertension, renal disease On: :32 Request FECAL OCCULT HGB ASSAY- tubes sent home ([id number])Indication: Weight loss On: 6-Jgq-716801:07 Request HEPATIC FUNCTION PANEL (55335)Indication: Hypercholesteremia On: :26 Request LIPID PANEL (39541)Indication: Hypercholesteremia On: :26 Request C-REACTIVE PROTEIN ([id number])Indication: Abdominal pain, unspecified abdominal location On: :43 Request Sedimentation Rate-ESR (94927)Indication: Abdominal pain, unspecified abdominal location On: :43 Request Metabolic Panel, Comprehensive ([id number])Indication: Abdominal pain, unspecified abdominal location On: :42 Request CBC with manual diff ([id number])Indication: Abdominal pain, unspecified abdominal location On: :42 Request Lipase ([id number])Indication: Abdominal pain, unspecified abdominal location On: :42 Request Amylase (42819)Indication: Abdominal pain, unspecified abdominal location On: 27-Aug-20108:42 Request TSH ([id number])Indication: Hypercholesteremia On: :17 Request URINALYSIS, W/ MICRO (60490)Indication: Hypertension, renal disease On: :17 Request MICROALBUMIN: CREATININE RATIO (59783) AND ([id number])Indication: Hypertension, renal disease On: :17 Request METABOLIC PANEL, COMPREHENSIVE (50971)Indication: Hypertension, renal disease On: :17 Request CBC WITH MANUAL DIFF ([id number])Indication: Hypertension, renal disease On: :17 Request LIPID PANEL ([id number])Indication: Hypercholesteremia On: :17 Request Creatine (24205)Indication: Hypertension, renal disease On: 28-Pyq-111761:19 Request Urinalysis, Office ([id number])Indication: Abdominal pain, unspecified abdominal location On: 57-Muy-946947:09 Request TSH ([id number])Indication: Hypercholesteremia On: 75-Hxs-018764:07 Request METABOLIC PANEL, COMPREHENSIVE ([id number])Indication: Hypertension, renal disease On: 32-Beo-288731:06 Request LIPID PANEL ([id number])Indication: Hypertension, renal disease On: 89-Wlr-688423:06 Request CBC WITH MANUAL DIFF ([id number])Indication: Hypertension, renal disease On: 32-Mgf-484699:06 Request Folate ([id number])Indication: Fatigue On: 24-Qqp-311079:41 Request FECAL OCCULT HGB ASSAY- tubes sent home (00674)Indication: Well woman exam On: 41-Dvj-042750:37 Request HEPATIC FUNCTION PANEL ([id number])Indication: Hypercholesteremia On: 06-Ulo-226755:36 Request LIPID PANEL (65894)Indication: Hypercholesteremia On: 29-Fvv-415301:36 Request Comments: do in 2- 2 1/2 months CCP ANTIBODY ([id number])Indication: Pain in thoracic spine On: 2-Pba-011807:18 Request Vitamin D Hydroxy ([id number])Indication: Osteopenia On: 97-Tcy-171784:19 Request HEPATIC FUNCTION PANEL ([id number])Indication: Hypercholesteremia On: 88-Kux-534038:15 Request LIPID PANEL (00426)Indication: Hypercholesteremia On: :15 Request Comments: do in 3 mo LIPOPROTEIN, BLD, BY NMR ([id number])Indication: Hypercholesteremia On: :15 Request Urinalysis, Office (56501)Indication: BLADDER RETENTION OF URINE On: :19 Request Comments: NEG TSH (06532)Indication: Irritable bowel syndrome On: :53 Request MICROALBUMIN: CREATININE RATIO On: :53 Request (38143) AND (18627) METABOLIC PANEL, COMPREHENSIVE On: :53 Request ([id number]) LIPOPROTEIN, BLD, BY NMR (08497) On: :53 Request LIPID PANEL (79327) On: :53 Request CBC WITH MANUAL DIFF (14195) On: :51 Request Planned Procedures Spirometry (05016)By: Chapis MONTGOMERY, On: 18-Oct-2017 Intent Priya Atkinson DO ELECTROCARDIOGRAM, COMPLETE (ECG) On: 18-Oct-2017 Intent (80908)By: Priya Jimenez DO, DO, Kathleen B 12 Injection, 1000 mcg (J3420)By: On: 15-Apr-2017 Intent Priya Jimenez DO, DO, Comments: 1 ml given lt arm lot [id number] exp 09/11 Priya B 12 Injection, 1000 mcg (J3420)By: On: 12-Nov-2016 Intent Priya Jimenez DO, DO, Kathleen INTENSIVE BEHAVIORAL THERAPY TO On: 08-Jul-2016 Intent REDUCE CARDIOVASCULAR DISEASE RISK, INDIVIDUAL, XQRL-DT-YJTP, ANNUAL, 15 MINUTES (G0446)By: Priya Jimenez DO, DO, Kathleen ELECTROCARDIOGRAM, COMPLETE (ECG) On: 11-Jun-2016 Intent (32714)By: Priya Jimenez DO Comments: sinus jg no [...] PNEUM VAC ADLT/IMUMNOSPR, SBC/INTRM On: 13-Aug-2015 Intent ([id number])By: Chapis DOAdarshPriya Comments: pneumovaxlot:[id number]:01/31/17site:lt deltroute:IMDEmick, MA Chapis DO, Priya Radiology - [...] DO, Comments: given - 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, GAUGE MAKER Priya Flu Vaccine (Quadrivalent) 03200Og: On: 04-Feb-2015 Intent Chapis DO, Priya Chapis DO, Comments: lot [id number]: 10/24/2015site/route L janet, IMamt 0.5mlVIS and ABN signed when applicableChelscammie, CMAFM4 Priya Holter Monitor 24 hrsBy: Chapis DO, On: 10-Oct-2014 Intent Priya Chapis DO, Priya Venous Doppler - LeftBy: Elda LUO, On: 03-Jul-2014 Intent Kenn Hartley Radiology - Lumbar SpineBy: Caroleerickastevenson On: 03-Jul-2014 Intent Kenn LOU Toradol Injection, 30 mg On: 03-Jul-2014 Intent ([id number])By: Elda LOUKenn Venous Doppler - RightBy: Elda On: 03-Jul-2014 Intent Kenn LOU Six Minute Walk Assessment On: 07-Mar-2014 Intent (36037)By: Priya Jimenez DO Comments: set up Priya Jimenez DO Prevnar 13 (64568)By: Chapis MONTGOMERY On: 21-Feb-2014 Intent Priya Atkinson DO Comments: [id number] arm, IMAS ADMINISTRATION OF INFLUENZA VIRUS On: 21-Feb-2014 Intent VACCINE (G0008)By: Chapis MONTGOMERY, Comments: [id number] syringeL Dltd, IMAS, LPNABN and VIS signed Priya Atkinson DO Flu Vaccine (Quadrivalent) 64135Dh: On: 21-Feb-2014 Priya Matosn DO, DO, Kathleen Bone Density StudyBy: Chapis MONTGOMERY, On: 26-Jul-2013 Intent Priya Atkinson DO Spirometry (13557)By: Chapis MONTGOMERY On: 22-Feb-2013 Intent Priya Atkinson DO Comments: obstr present - presnet taking mdi's- and trying to quit with ecig FLU VAC, SPLIT, >3 YEARS, INTRAMUSC On: 22-Feb-2013 Intent (46646)By: Joaquina Young LPN Comments: Lot:[id number]:6.14Amt:0.5mlRoute:IMSite: L DltdGiven By: NOEMY MazaVIS signed ADMINISTRATION OF INFLUENZA VIRUS On: 22-Feb-2013 Intent VACCINE (G0008)By: Joaquina Young LPN Eprescribed prescriptions On: 31-Aug-2012 Intent (G8553)By: Joaquina Young LPN Eprescribed prescriptions On: 15-Aug-2012 Intent (G8553)By: Joaquina Young LPN SLEEP STUDY, ATTENDED (68229)By: On: 08-Aug-2012 Intent Chapis DO, Priya Chapis [...] (J2930)By: Kenn Aragon CNP Comments: lot number [id number] exo 08/2014 IM left hip 125mg solumedrol Radiology - ChestBy: Elda LOU, On: 01-Mar-2012 Intent Kenn Hartley Hdfahhaym-Xbw-Fkum (16563)By: Elda On: 01-Mar-2012 Intent Kenn LOU Pulse Oximetry (45893)By: Kashif SALGUERO, On: 01-Mar-2012 Intent Jen Funk Comments: 97 FLU VAC, SPLIT, >3 YEARS, INTRAMUSC On: 31-Dec-2011 Intent (80037)By: Priya Jimenez DO Comments: Lot #[id number]-L dltd, IMDose prefilled syringegiven by:NOEMY HardinVIS signed Priya Jimenez DO ADMINISTRATION OF INFLUENZA VIRUS On: 31-Dec-2011 Intent VACCINE (G0008)By: Priya Jimenez DO, DO, Kathleen Esophagram with 13 mm tabletBy: On: 31-Dec-2011 Intent Priya Jimenez DO, DO, Kathleen EKG (07703)By: Joaquina Young On: 31-Dec-2011 Josefina SALGUERO Comments: nsr no acute chg -- LAD/ q waves in inferior leads Eprescribed prescriptions On: 31-Dec-2011 Intent (G8553)By: Joaquina Young LPN Spirometry (48660)By: Chapis MONTGOMERY, On: 12-Aug-2011 Intent Priya Atkinson DO Comments: 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 - she is good with lack of symptoms MAMMOGRAM, SCREENING, BOTH BREASTS On: 12-Aug-2011 Intent (70306)By: Priya Jimenez DO, DO, Kathleen Eprescribed prescriptions On: 02-Apr-2011 Intent (G8553)By: Priya Jimenez DO, DO, Kathleen FLU VAC, SPLIT, >3 YEARS, INTRAMUSC On: 13-Jan-2011 Intent (71586)By: Elin Andrade RN Comments: Lot #:[id number] date: 10/05Amount given: 0.5 mlRoute: IMSite given: left deltoidGiven by: BHUPINDER Gutierrez IMMUNIZ ADMNIN, 1 VAC, SNGL/COMBO On: 13-Jan-2011 Intent (25448)By: Elin Andrade RN EKG ([id number])By: Priya Jimenez DO On: 01-Dec-2010 Intent Priya Jimenez DO Comments: nsr no acute disease Eprescribed prescriptions On: 01-Dec-2010 Intent (G8553)By: Joaquina Young LPN Toradol Injection, 30 mg On: 25-Sep-2010 Intent (J1885)By: Priya Jimenez DO Comments: Lot #[id number]-left hipDose- 30mggiven by: NOEMY Morton DO, Kathleen Eprescribed prescriptions On: 25-Sep-2010 Intent (G8553)By: Priya Jimenez DO, DO, Kathleen Pulse Oximetry (80629)By: Chapis On: 15-Sep-2010 Priya Rocha DO, DO, [...] MAMMOGRAM, SCREENING, BOTH BREASTS On: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
--- OUTSIDE RECORDS SUMMARY | 2018-05-23 13:52 | XMS RPT_ITS ---
:1935 Author Organization [facility] Support Name Relationship Address Phone IDALMIS, LORITA NaturalDaughter [address] + [place] [address] R Unknown Unavailable Unavailable IDALMIS, LORITA NaturalDaughter [address] + [place] [address] R Unknown Unavailable Unavailable IDALMIS, LORITA NaturalDaughter [address] + [place] [address] R Unknown Unavailable Unavailable IDALMIS, LORITA NaturalDaughter [address] + [place] [address] R Unknown Unavailable Unavailable IDALMIS, LORITA NaturalDaughter [address] + [place] [address] R Unknown Unavailable Unavailable R Unknown Unavailable Unavailable IDALMIS, LORITA NaturalDaughter [address] + [place] [address] R Unknown Unavailable Unavailable IDALMIS, LORITA NaturalDaughter [address] + [place] [address] R Unknown Unavailable Unavailable IDALMIS, LORITA NaturalDaughter [address] + [place] [address] R Unknown Unavailable Unavailable IDALMIS, LORITA NaturalDaughter [address] + [place] [address] R Unknown Unavailable Unavailable IDALMIS, LORITA NaturalDaughter [address] + [place] [address] R Unknown Unavailable Unavailable IDALMIS, LORITA NaturalDaughter [address] + [place] [address] R Unknown Unavailable Unavailable IDALMIS, LORITA NaturalDaughter [address] + [place] [address] R Unknown Unavailable Unavailable IDALMIS, LORITA NaturalDaughter [address] + [place] [address] R Unknown Unavailable Unavailable IDALMIS LORITA NaturalDaughter [address] + [place] [address] R Unknown Unavailable Unavailable IDALMIS LORITA NaturalDaughter [address] + [place] [address] R Unknown Unavailable Unavailable IDALMIS LORITA NaturalDaughter [address] + [place] [address] R Unknown Unavailable Unavailable IDALMIS, LORITA NaturalDaughter [address] + [place] [address] R Unknown Unavailable Unavailable IDALMIS, LORITA NaturalDaughter [address] [phone] [place] [address] R Unknown Unavailable Unavailable EC, SAME Unknown Unavailable Unavailable IDALMISJUSTINAITA Parent Unavailable + IDALMIS LORITA NaturalDaughter [address] [phone] [place] [address] R Unknown Unavailable Unavailable IDALMIS LORITA NaturalDaughter [address] [phone] [place] [address] R Unknown Unavailable Unavailable R Unknown Unavailable Unavailable FRUTSCHY, JOANA Granddaughter [address] + [place] [address] IDALMISBRANDON NaturalDaughter [address] [phone] [place] [address] R Unknown Unavailable Unavailable FRUTSCHJOANA Foreman Granddaughter [address] + [place] [address] IDALMIS LORITA NaturalDaughter [address] [phone] [place] [address] R Unknown Unavailable Unavailable FRUTSCHAhsan, JOANA Granddaughter [address] + [place] [address] IDALMIS LORTAI NaturalDaughter [address] [phone] [place] [address] R Unknown Unavailable Unavailable FRUTSCHJOANA Foreman Granddaughter [address] + [place] [address] BRANDON RAYGOZA NaturalDaughter [address] [phone] [facility] [place] [address] R Unknown Unavailable Unavailable JOANA PICKARD Granddaughter [address] + [place] [address] BRANDON RAYGOZA NaturalDaughter [address] [phone] [facility] [place] [address] R Unknown Unavailable Unavailable Care Team Providers Name Role Phone TESTRAALEAH, JOSIE Attending Unavailable TESTRAKE, JOSIE Referring Unavailable TESTRAKE, JOSIE Attending Unavailable TESTRAKE, JOSIE Attending Unavailable Barbara DO, Priya Attending Unavailable Barbara DO, Priya Referring Unavailable Barbara DO, Priya Consulting Unavailable Hipolito, Dr. Pina Odonnell Attending Unavailable Mcmillan, Dr. Pina Odonnell Referring Unavailable Barbara, Priya Primary Care Unavailable DAMARIS GARCIA Attending Unavailable Barbara, Priya Primary Care Unavailable DAMARIS GARCIA Referring Unavailable PrahRonan Attending Unavailable Barbara, Priya Referring Unavailable Barbara, Priya Primary Care Unavailable Ronan Montenegro Consulting Unavailable Aida Lindo Attending Unavailable Barbara, Priya Referring Unavailable Paramjit Odonnell D.O. Attending Unavailable Sincere Lauren Referring Unavailable PrahRonan Attending Unavailable Barbara, Priya Primary Care Unavailable Barbara, Priya Referring Unavailable Barbara, Priya Attending Unavailable Barbara, Rpiya Primary Care Unavailable Barbara, Priya Referring Unavailable Sincere Lauren Attending Unavailable Barbara, Priya Referring Unavailable Jessie Maharaj Attending Unavailable Lianne Tovar Attending Unavailable Barbara, Priya Referring Unavailable Barbara, Priya Primary Care Unavailable PraRonan guaman Attending Unavailable Barbara, Priya Primary Care Unavailable Ronan Montenegro Consulting Unavailable Aida Lindo Attending Unavailable Barbara, Priya Referring Unavailable Barbara, Priya Attending Unavailable Barbara, Priya Referring Unavailable Barbara, Priya Primary Care Unavailable Ronan Montenegro Attending Unavailable Ronan Montenegro Referring Unavailable Prah, Ronan Attending Unavailable Barbara, Priya Referring Unavailable Barbara, Priya Primary Care Unavailable Ronan Montenegro Consulting Unavailable Lindo, Aida Attending Unavailable Barbara, Priya Referring Unavailable Barbara, Priya Attending Unavailable Barbara, Priya Referring Unavailable Barbara, Priya Primary Care Unavailable Leonidas, Sincere Attending Unavailable Barbara, Priya Referring Unavailable Prah, Ronan Attending Unavailable Prah, Ronan Referring Unavailable Barbara, Priya Primary Care Unavailable Lindo, Aida Attending Unavailable Lindo, Aida Referring Unavailable Barbara, Priya Primary Care Unavailable Prah, Ronan Attending Unavailable Barbara, Priya Referring Unavailable Barbara, Priya Primary Care Unavailable Prah, Ronan Consulting Unavailable Lindo, Aida Attending Unavailable Barbara, Priya Referring Unavailable Leonidas, Sincere Attending Unavailable Lindo, Aida Referring Unavailable Tamra, [place] Attending Unavailable Barbara, Priya Referring Unavailable Leonidas, Sincere Attending Unavailable Leonidas, Sincere Referring Unavailable Barbara, Priya Primary Care Unavailable DAMARIS GARCIA Attending Unavailable DAMARIS GARCIA Referring Unavailable Barbara, Priya Primary Care Unavailable DAMARIS GARCIA Consulting Unavailable Purpose Purpose PROBLEMS PROBLEMS DATE TYPE CONDITION / CODE ATTENDING STATUS SOURCE 04/28/2018 Unknown J44.9 - Chronic Paramjit Brown, Active [facility] obstructive [facility] pulmonary disease, Hospital unspecified / Repository J44.9(ICD-10) 04/13/2018 Unknown D46.9 - Ronan Montenegro Active [facility] syndrome, Hospital unspecified / Repository D46.9(ICD-10) 04/07/2018 Unknown M32.8 - Other forms DAMARIS GARCIA Active [facility] of systemic lupus Community erythematosus / Hospital M32.8(ICD-10) Repository 04/07/2018 Unknown D50.9 - Iron DAMARIS GARCIA Active [facility] deficiency anemia, Community unspecified / Hospital D50.9(ICD-10) Repository 03/15/2018 Unknown M81.0 - Age-related DAMARIS GARCIA Active [facility] osteoporosis without Community current pathological Hospital fracture / Repository M81.0(ICD-10) 02/01/2018 Unknown Z95.5 - Presence of Tamra, [place] Active [facility] coronary angioplasty Community implant and graft / Hospital Z95.5(ICD-10) Repository 02/01/2018 Unknown I10 - Essential Tamra, [place] Active [facility] (primary) Community hypertension / Hospital I10(ICD-10) Repository 02/01/2018 Unknown E78.5 - Tamra, Kaden Active [facility] Hyperlipidemia, Community unspecified / Hospital E78.5(ICD-10) Repository 01/14/2018 Unknown Z23 - Encounter for [place] Active [facility] immunization / [facility] Z23(ICD-10) Hospital Repository 01/12/2018 Unknown F17.200 - Nicotine LeonidasSincere garcia Active [facility] dependence, Community unspecified, Hospital uncomplicated / Repository F17.200(ICD-10) 01/12/2018 Unknown I50.20 - Unspecified LeonidasSincere garcia Active [facility] systolic Community (congestive) heart Hospital failure / Repository I50.20(ICD-10) 11/02/2017 Unknown D51.8 - Other Barbara, Active [facility] vitamin B12 [facility] deficiency anemias / Hospital D51.8(ICD-10) Repository 10/07/2017 Unknown D53.9 - Nutritional PraRonan guaman Active [facility] anemia, unspecified Community / D53.9(ICD-10) Hospital Repository 09/14/2017 Final diagnosis [address] lupus [facility] Rep[facility] M32.9(ICD-10) 09/14/[address] [facility] site / Community Hospital Repository M19.90(ICD-10) 09/14/2017 Final diagnosis Raynaud's syndrome Dr. Hipolito [facility] (discharge) without gangrene / [facility] I73.00(ICD-10) [facility] Repository 09/14/2017 Final diagnosis Other senior living Dr. Hipolito [facility] (discharge) (current) drug [facility] therapy / [facility] Repository Z79.899(ICD-10) 05/20/2017 Unknown E87.6 - Hypokalemia Barbara, Active [facility] / E87.6(ICD-10) [facility] Repository PROCEDURES PROCEDURES No Procedure Records FoundVITAL SIGNS VITAL SIGNS No Vital Signs Records FoundRESULTS RESULTS PULMONARY VISIT REPORT Observed: 04/22/2018 Status: F Source: [facility] 3:41 PM [facility] REPOSITORY [facility] [address] [place] [address] OFFICE VISIT Date of Service: 04/22/18 MR#: [id number] Acct: [id number] Name: KILEY DREW Rep #: [id number] : 1935 Provider: Aida Lindo Age/Sex: 82/F Location: [facility] Status: Signed Assessment AND Plan 1. Chronic respiratory failure with hypoxia J96.11 Plan The patient is using and benefiting from oxygen. Continue to utilize to maintain a saturation of 89-92%. Follow-up in 3 months. 2. Stage 3 severe COPD by GOLD classification J44.9 Plan Does not appear to be an exacerbation of COPD today. No need for prednisone or antibiotic. Continue current maintenance medication. No additional testing at this time. Contact the office for any new or worsening symptoms. An acute visit and typically be arranged within 1-2 days. Follow-up in 3 months. Introduced the idea of palliative care, patient will consider this and if she would like the referral she will contact the office. Annual influenza vaccination current. 3. Tobacco dependency F17.200 Plan Continue to encourage smoking cessation. Plan Detail Follow Up 3 Months ([facility]) HPI 3 M FU: Chief Complaint: Shortness of breath HPI Comments Details: This Patient presents the office today to follow- up on her COPD, and chronic hypoxic respiratory failure. She is in a wheelchair, wearing nasal cannula oxygen. She has not been seen in the ED or urgent care for respiratory illnesses since her last office visit. She has not required any antibiotics or prednisone for any breathing problems. She continues compliance with Symbicort 2 puffs twice daily. She rinse her mouth out after each use. She denies any medication side effects such as sore throat or thrush. She is also compliant with Tudorza daily. She has been using Flonase daily, and has liked the results. She uses her Ventolin a few times per week. She continues to experience shortness of breath all of the time. It is worse with activity. She has a cough that is occasionally productive of yellow sputum. She denies any wheezing, chest pain, chest tightness or palpitations. She denies any hemoptysis. She has not experienced any fever, chills or body aches. She continues to smoke 1/2-1 pack daily. She is currently using cigarettes. She reports I know that you are going to tell me to quit smoking. Pulmonary function test completed on April 15, 2018, interpreted as showing irreversible severe large airway obstructive defect with associated hyperinflation and air trapping. FVC 66% of predicted, FEV1 31% of predicted, FEV1/FVC 35% of predicted, TLC 141% of predicted, RV to 30% of predicted and DLCO unable to be determined. Intake Vital Signs04/22/18 Height 5 ft 2 in 04/22/18 Weight: 120 lb 04/22/18 Body Mass Index (BMI) 21.9 Intake Visit Reasons: 3 M FU [employer] Required: No DME Vendor: [employer] Accompanied by: Self Is patient in pain?: No Allergies alendronate sodium [From Fosamax] Adverse Reaction (Severe, Verified 04/22/18 11:08) gastroenteritis sulfamethoxazole [From Bactrim] Adverse Reaction (Severe, Verified 04/22/18 11:08) thrush trimethoprim [From Bactrim] Adverse Reaction (Severe, Verified 04/22/18 11:08) thrush Medications Hydroxychloroquine [Plaquenil] 300 mg PO DAILY 07/06/15 [History Confirmed 04/22/18] Nitroglycerin [Nitrostat] 0.4 mg SUBLINGUAL Q5M PRN 07/06/15 [History Confirmed 04/22/18] Omeprazole [Prilosec] 20 mg PO DAILY 07/06/15 [History Confirmed 04/22/18] Oxycodone HCl/Acetaminophen [Percocet 5-325] 1 tab PO BID 07/06/15 [History Confirmed 04/22/18] Pregabalin [Lyrica] 75 mg PO TID 07/06/15 [History Confirmed 04/22/18] Aspirin [Aspirin, Baby] 81 mg PO DAILY@0800 08/23/15 [History Confirmed 04/22/18] Oxygen, Home [Home Oxygen] 3 lpm NASAL CONT 12/01/15 [History Confirmed 04/22/18] Amlodipine [Norvasc] 2.5 mg PO DAILY #30 tab 12/04/15 [Rx Confirmed 04/22/18] Ascorbic Acid [Vitamin C] 500 mg PO BID #60 tab 12/04/15 [Rx Confirmed 04/22/18] cholecalciferol (vitamin D3) 4,000 unit capsule 4,000 unit PO QDAY 07/01/17 [History Confirmed 04/22/18] polysaccharide iron complex 150 mg iron capsule 150 mg PO TID cap 07/05/17 [History Confirmed 04/22/18] albuterol sulfate HFA 90 mcg/actuation aerosol inhaler 2 puff INHALATION Q4H PRN #18 g 07/14/17 [Rx Confirmed 04/22/18] furosemide 40 mg tablet 40 mg PO BID #60 tab 09/09/17 [Rx Confirmed 04/22/18] Cyanocobalamin [Vitamin B12] 1,000 mcg IM Q30D 10/14/17 [History Confirmed 04/22/18] atorvastatin 80 mg tablet 80 mg PO QHS #90 tab 01/26/18 [Rx Confirmed 04/22/18] carvedilol 3.125 mg tablet 3.125 mg PO BID #60 tab 01/26/18 [Rx Confirmed 04/22/18] potassium chloride ER 20 mEq tablet,extended release(part/cryst) 20 meq PO DAILY tab 02/01/18 [History Confirmed 04/22/18] aclidinium bromide 400 mcg/actuation breath activated powder inhaler 1 inh INHALATION BID #1 ea 02/09/18 [Rx Confirmed 04/22/18] budesonide-formoterol HFA 160 mcg-4.5 mcg/actuation aerosol inhaler 2 puff INHALATION BID #10.2 g 02/09/18 [Rx Confirmed 04/22/18] fluticasone 50 mcg/actuation nasal spray,suspension 2 spray INTRANASAL DAILY #18.2 g 03/04/18 [Rx Confirmed 04/22/18] [facility] Medical History Long-term use of high-risk medication (Chronic) 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) PND (post-nasal drip) (Chronic) Chronic obstructive pulmonary disease (Chronic) Coronary atherosclerosis of [place] coronary artery (Chronic) HLD (hyperlipidemia) (Chronic) HTN (hypertension) (Chronic) Personal history of transient ischemic attack (TIA) 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 (Chronic) CAD (coronary artery disease) (Chronic) Hypokalemia (Acute) Metabolic alkalosis with respiratory acidosis (Chronic) On home O2 (Chronic) History of MT (myocardial infarction) (Chronic) Acute blood loss anemia [...] EETM Ear Nose Throat Mouth: Positive hearing normal and nasal discharge; negative hard of hearing, hoarseness, dry mouth in morning, change in vision, itchy eyes, eye pain, swallowing Difficulty, ear pain, nose bleed, headache(s), mouth pain, nasal congestion, post nasal drip, sinus pain, sinus pressure, sore throat or other Cardio Cardiovascular: Positive edema Location: lower extremity; negative chest pain, chest pain at rest, chest pain with activity, irregular heart rhythm, shortness of breath when lying down, palpitations, murmur or other Resp Respiratory: Positive as per HPI, shortness of breath, cough cough: Positive productive color: Positive yellow and inhalers; negative pain with cough, wheezing, chest congestion, chest tightness, pain on inspiration, increase use of rescue inhalers, snoring, apnea or other Gastro Gastrointestional: Negative bloody stools, change in appetite, difficulty swallowing, reflux, hematemesis, melena stool, loose stool, constipation or other Genitourinary: Negative blood in urine, nocturia, pain with urination or other Musc Musculoskeletal: Positive body pain; negative back pain, neck pain or other Skin/Breast Skin/Breast: Negative dry skin, itching, rash, unusual bruising, breast lump or other Neuro Neurological: Positive weakness; negative restless legs, confusion or other Psych Psychocological: Negative abnormal sleep [...] negative nystagmus or scleral abnormality Ears Ear: Positive hearing normal and external ears normal; negative hard of hearing Nose Nose: Positive external nose normal and no nasal discharge; negative epistaxis Mouth Mouth: Positive oral mucosae normal, no lesions, dentures and posterior oropharynx is adequate; negative post nasal drip, malodorous breath or oral thrush present Mallampati Score: I: Mallampati Score Neck Neck: Positive normal visual inspection, full ROM and trachea midline; negative lymphadenopathy, JVD or tender Chest Wall Chest: Positive symmetric chest movement and increased A/P diameter Resp lung sounds: Positive clear to auscultation, diminished, prolonged expiratory time and normal chronic state of increased work of breathing; negative wheezes, rhonchi, rales, dullness to percussion or wheeze present on forced exhalation Cardio Cardiac: Positive regular rate, regular rhythm, S1 normal and S2 normal; negative murmur GI GI: Positive normal to inspection; negative distended Genitourinary: Positive deferred Musc Musculoskeletal: Positive ROM normal and in a wheelchair; negative kyphosis or scoliosis Skin Pulmonary Skin Exam: Positive intact and dermal atrophy; negative rash Pulses Pulse: Yes pulses normal x4 extremities Extremities Extremities: Yes capillary refill normal, Yes clubbing, No cyanosis, No edema Neuro Neurologic: Yes conversant, Yes no focal neuro deficits, Yes normal concentration, Yes understands questions, Yes cooperative, Yes normal cognition, Yes normal coordination, No tremor Lymph Lymphatic: No lymphadenopathy, No tenderness, No cervical adenopathy Psych Appearance: Positive grossly normal, eye contact and well kempt Mental Status: Positive mental status grossly normal Mood: Positive congruent mood Affect: Positive normal affect Coding Level of Care Code Off vis,est,level 3 Diagnoses Chronic respiratory failure with hypoxia J96.11 Stage 3 severe COPD by GOLD classification J44.9 Tobacco dependency F17.200 04/22/18 1541 <Electronically signed by Aida PENNINGTON> Date Aida HINKLEC Cosigner Signature: Date (if applicable) CC: Priya Jimenez DO PULMONARY FUNCTION Observed: 04/16/2018 Status: F Source: [facility] TEST 7:44 AM [facility] REPOSITORY [facility] [place] Pulmonary Services/Neurology [address] [place] [address] MR#: [id number] Acct: [id number] Name: KILEY DREW Jada Rep #: [id number] : 1935 82 From: Paramjit Odonnell DO Referring Dr: Sincere Lauren MD Status: REG CLI Ordering Dr: Date: Location: [facility] Sex: F C INTRODUCTION: The patient is an 82-year-old female that presents for pulmonary function testing secondary to a diagnosis of COPD. Respiratory therapy reports that the patient was unable to do DLCO maneuvers because she was unable to keep oxygen off in between testing. Bronchodilators were used during testing. INTERPRETATION: Forced expiration spirometry demonstrates the presence of a severe large airways obstructive ventilatory defect. There was no significant response to aerosolized bronchodilators. Spirograms are of good quality and do not plateau indicating slow emptying of the lungs. Body plethysmography was performed and reveals an elevated TLC and RV, indicative of underlying hyperinflation and air-trapping. Diffusing capacity was unable to be estimated. When compared to previous pulmonary function studies dated January 2015 there has been an 18% reduction in FEV1, along with worsening hyperinflation and air-trapping. 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 Diffusing capacity was unable to be estimated. There appears to be worsening in the patient's pulmonary function studies since they were last completed in 2014, as noted above. 04/16/18 0744 <Electronically signed by Paramjit Odonnell DO> Date Paramjit Odonnell DO CC: Sincere Lauren MD; Ronan Montenegro MD; Priya Jimenez DO Date Dictated: 04/16/18741 Date Transcribed: 04/16/18741 Split Leather Mosser: MATEUS Signed ONCOLOGY VISIT REPORT Observed: 04/13/2018 Status: F Source: [place] FERRY 1:36 PM [facility] REPOSITORY [facility] Medical Oncology [address] [place] [address] OFFICE VISIT Date of Service: 04/13/181328 MR#: [id number] Acct: [id number] Name: KILEY DREW Rep #: [id number] : 1935 From: Ronan Montenegro MD Age/Sex: 82/F Location: OMD Status: Signed Subjective - Date of Service Date of Service:: 04/13/18 - Chief Complaint F/u for MDS. - History of Present Illness Ms. Kiley Drew is a pleasant 82y.o.woman was found to have severe anemia in November 2015. 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 Flow cytometry revealed no significant immunophenotypic abnormality, normal female karyotype observed. Blasts 2%. She is currently on observation, comes in for follow up. She feels well, uses home O2, gets bruises on the forearms on and off.. - Past Medical/Social History Past Medical History Past Medical History: Anemia,Blood transfusion,Cataracts,Chronic bronchitis,Congestive heart failure,COPD,Hearing problems,Heart disease,Hyperlipidemia, Hypertension,Osteopenia,Pneumonia,Stroke,Vision problems,Neuropathy,IBS,Carpal tunnel syndrome, Fatigue,Diarrhea,Peripheral neuropathy Other Past Medical History: LUPOS SLE Cancer: Skin cancer Past Surgical History Surgical: Carpal tunnel,Hysterectomy Other Surgical History: FOOT SURGERY Family History Paternal Past Medical History: Alzheimer's disease,Heart disease Maternal Past Medical History: Crohn's disease Social History Smoking Status Current every day smoker Review of Systems Constitutional:: Denies: Fever, Sweats, Weight loss, Appetite change, Chills Cardiovascular:: Denies: Chest pain, Palpitations, Dyspnea on exertion, Orthopnea, PND, Shortness of breath Respiratory: Denies: Cough, Hemoptysis, Shortness of Breath, Wheezing Gastrointestinal:: Denies: Abdominal pain, Nausea, Vomiting, Diarrhea, Constipation, Hematochezia Genitourinary: Denies: Dysuria, Hematuria, 15, Flank pain Musculoskeletal:: Reports: - - R leg shorter than L leg. Had R hip fracture which healed badly.. Denies: Back pain, Myalgia, Arthralgia Skin: Denies: [...] S1, Normal S2. Negative for: Murmur Lungs: Diminished - BS Laboratory Data: Laboratory Tests WBC 7.4 8.0 Hgb 12.2 13.1 WBC 7.8 Hgb 12.5 Hct 41.6 Plt Count 214 Absolute Lymphs (auto) 0.87 Absolute Neuts (auto) 5.7 Sodium Potassium Creatinine Glucose Assessment and Plan MDS-RARS, Hgb is about 12. IPSS-1. Clinically stable, asymptomatic. Skin Fragility leading to bruises. Plan is to continue observation. RTC 3 months with CBC/CMP. Medications: Prescriptions This Visit Medication Instructions Recorded Cyanocobalamin [Vitamin B12] 1,000 mcg IM Q30D 10/14/17 Primary Care Provider: Referring Provider: - Problem List (1) MDS (myelodysplastic syndrome) Status: Chronic Code Visit Office Visits / Consults: [id number] OV L3 Est 04/13/18 1336 <Electronically signed by Ronan Montenegro MD> Date Ronan Montenegro MD Cosigner Signature: Date (if applicable) CC: CBC W/DIFF, AUTOMATED Collected: 04/06/2018 Status: F Source: [place] 9:15 AM [facility] REPOSITORY Order Comment: DR MONTENEGRO ORDERED CMP CBCD DR BREAUX ORDERED CMP CRP CBCD SED C3 C4 ANTIDNA TYPE CODE TESTS RESULT OUT OF RANGE REFERENCE UNITS LAB L100.1000 4.4-11.0 K/mm3 Normal WBC 7.8 LAB L100.1200 4.2-5.4 M/mm3 Normal RBC 4.36 LAB L100.1300 12.0-15.0 g/dl Normal HGB 12.5 LAB L100.1400 37-47 % Normal HCT 41.6 LAB L100.1500 81-99 fL Normal MCV 95.4 LAB L100.1600 27.0-32.0 pg Normal MCH 28.7 LAB L100.1700 32-36 g/gl Low MCHC 30.0 LAB L100.1810 11.6-14.6 % Normal RDW CV 12.8 LAB L100.1820 35.1-43.9 fl High RDW SD 44.8 LAB L100.1900 150-450 K/mm3 Normal PLT 214 LAB L100.2000 6.2-12.0 fl Normal MPV 10.3 LAB L100.2100 47-70 % High NEUT% 72.9 LAB L100.2200 19-41 % Low LY% 11.2 LAB L100.2300 0-10 % High MONO% 14.3 LAB L100.2400 0-5 % Normal EO% 1.2 LAB L100.2500 0-1 % Normal BASO% 0.3 LAB L100.2550 0.0-0.9 % Normal IM GRAN % 0.100 Result Comment: IG% - Immature Granulocytes (promyelocytes, myelocytes and metamyelocytes) > 1% indicates that a LEFT SHIFT is Present. LAB L100.2620 2.0-7.7 X10 3/uL Normal Absolute Neut 5.7 LAB L100.2720 0.83-4.51 X10 3/ul Normal Absolute Lymph 0.87 Performed By: #### L100.0100, L101.9900 #### [facility] [address] [place], [place], [address] ERYTHROCYTE SED RATE Collected: 04/06/2018 Status: F Source: [place] 9:15 [facility] REPOSITORY Order Comment: DR MONTENEGRO ORDERED CMP CBCD DR BREAUX ORDERED CMP CRP CBCD SED C3 C4 ANTIDNA TYPE CODE TESTS RESULT OUT OF RANGE REFERENCE UNITS LAB L102.0000 0-30 mm/hr Normal SED RATE 6 Performed By: #### L100.0100, L101.9900 #### [facility] [address] [place], [place], [address] COMPREHENSIVE METABOLIC Collected: 04/06/2018 Status: F Source: [facility] 9:15 AM [facility] REPOSITORY Order Comment: DR MONTENEGRO ORDERED CMP CBCD DR BREAUX ORDERED CMP CRP CBCD SED C3 C4 ANTIDNA TYPE CODE TESTS RESULT OUT OF RANGE REFERENCE UNITS LAB L501.0100 74-106 mg/dL Normal GLU 82 Result Comment: Please note revised GLUCOSE reference range effective 2017. LAB L501.1000 7-18 mg/dL High BUN 25 LAB L501.1100 0.55-1.02 mg/dL Normal CREAT,SERUM 0.68 Result Comment: The validity of the calculated GFR AND GFRAA in patients over 70 years has not been determined. Clinical correlation is essential. LAB L501.1110 >60 mL/min Normal EST GFR 88 Result Comment: Non- GFR Calc LAB L501.1115 >60 mL/min Normal EST GFR - AA 107 Result Comment: GFR Calc LAB L501.1300 10-20 RATIO High BUN/CRE 36.9 LAB L501.1500 6.4-8.2 g/dL T Normal PROT 7.2 LAB L501.1800 3.2-5.0 g/dL Normal ALB 3.6 LAB L501.1950 2.2-4.2 g/dL Normal GLOB 3.6 LAB L501.2000 0.9-2.4 RATIO Normal A/G 1.0 LAB L501.2200 8.5-10.1 mg/dL CA Normal 9.1 LAB L501.4100 15-37 U/L Normal AST 25 LAB L501.4305 45-117 U/L Normal ALK P 76 LAB L501.4405 13-56 U/L Normal ALT 28 LAB L501.4600 0.20-1.00 mg/dL T Normal BILI 0.40 LAB L501.5300 136-145 mmol/L NA Normal 137 LAB L501.5600 3.5-5.1 mmol/L K Normal 3.6 LAB L501.5900 98-107 mmol/L Low CL 87 LAB L501.6100 21.0-32.0 mmol/L High CO2 44.0 LAB L501.6200 5-15 Normal GAP 6 Performed By: #### L500.4050, L501.6710 #### [facility] [address] [facility] [place], [place], [id number] CRP Collected: 04/06/2018 Status: F Source: [place] 9:15 AM [facility] REPOSITORY Order Comment: DR MONTENEGRO ORDERED CMP CBCD DR BREAUX ORDERED CMP CRP CBCD SED C3 C4 ANTIDNA TYPE CODE TESTS RESULT OUT OF RANGE REFERENCE UNITS LAB L501.6710 0.0-3.0 mg/L Normal < 2.90 C-REACTIVE PROT Result Comment: C-Reactive Protein (CRP) provides useful information for the diagnosis, therapy and monitoring of inflammatory processes and associated diseases. For the evaluation of Relative Risk for Cardiovascular Disease, a High Sensitivity CRP (HSCRP) should be ordered. Performed By: #### L500.4050, L501.6710 #### [facility] [address] [place], [address] COMPLEMENT C3 Collected: 04/06/2018 Status: F Source: [place] 9:15 AM [facility] REPOSITORY Order Comment: DR MONTENEGRO ORDERED CMP CBCD DR BREAUX ORDERED CMP CRP CBCD SED C3 C4 ANTIDNA TYPE CODE TESTS RESULT OUT OF RANGE REFERENCE UNITS LAB L3100.5700 82-167 mg/dL Normal COMP C3 129 Result Comment: Performed at: [facility] [id number] Wire Web Worker: Elías Ludwig PhD, Phone: [phone] Performed By: #### L3100.5700, L3100.5800 #### [facility] (refer to report for specific site) refer to report for address and phone number COMPLEMENT C4 Collected: 04/06/2018 Status: F Source: [place] 9:15 AM [facility] REPOSITORY Order Comment: DR MONTENEGRO ORDERED CMP CBCD DR BREAUX ORDERED CMP CRP CBCD SED C3 C4 ANTIDNA TYPE CODE TESTS RESULT OUT OF RANGE REFERENCE UNITS LAB L3100.5800 14-44 mg/dL Normal COMP C4 28 Performed By: #### L3100.5700, L3100.5800 #### [facility] (refer to report for specific site) refer to report for address and phone number ANTI-DSDNA AB Collected: 04/06/2018 Status: F Source: [place] 9:15 AM [facility] REPOSITORY Order Comment: DR MONTENEGRO ORDERED CMP CBCD DR BREAUX ORDERED CMP CRP CBCD SED C3 C4 ANTIDNA TYPE CODE TESTS RESULT OUT OF RANGE REFERENCE UNITS LAB L3100.5500 0-9 IU/mL Normal dsDNA AB 7 Result Comment: Negative <5 Equivocal 5 - 9 Positive >9 Performed at: [facility] [id number] Wire Web Worker: Elías Ludwig PhD, Phone: [phone] Performed By: #### L3100.5500 #### [facility] (refer to report for specific site) refer to report for address and phone number PROGRESS Observed: 03/30/2018 Status: COMPLETED Source: [place] 1:21 PM [facility] REPOSITORY HNO ID: [id number] Author: Josie Warner Service: (none) Author Type: Physician Type: Progress Notes Filed: 03/30/2018 1:23 PM Note Text: Follow up podiatric office visit for: Chief Complaint: This 82 year old who presents for follow up:ingrowing nail of left 4th toe. Patient denies pain. She states the ingrown has resolved. She denies any other issues. PAIN EVALUATION No data found. No results found for: HBA1C PCP: Priya Jimenez DO PAST MEDICAL HISTORY Diagnosis Date - Acute, but ill-defined, cerebrovascular disease - COPD (chronic obstructive pulmonary disease) ([facility]) - Heart disease - Lupus (systemic lupus erythematosus) ([facility]) - MT (myocardial infarction) ([facility]) - Myelodysplasia (myelodysplastic syndrome) ([facility]) - PAD (peripheral artery disease) ([facility]) - Peripheral vascular disease, unspecified ([facility]) - TIA (transient ischemic attack) Current Outpatient Prescriptions: Cholecalciferol, Vitamin D3, (VITAMIN D-3) 2,000 unit cap Take 2 capsules by mouth once daily. amLODIPine (NORVASC) 2.5 mg tablet Take 2.5 mg by mouth once daily. Ascorbic Acid 500 mg cpER Take 1 capsule by mouth twice daily. IRON POLYSACCHARIDE COMPLEX (FERREX 150 ORAL) Take 1 capsule by mouth twice daily. aclidinium bromide 400 mcg/actuation aepb Inhale 1 Puff as instructed twice daily. atorvastatin (LIPITOR) 80 mg tablet Take 80 mg by mouth once daily. budesonide-formoterol (SYMBICORT) 160-4.5 mcg/actuation inhaler Inhale 2 Puffs as instructed twice daily. carvedilol (COREG) 3.125 mg tablet Take 3.125 mg by mouth twice daily with meals. furosemide (LASIX) 40 mg tablet Take 40 mg by mouth twice daily. hydroxychloroquine (PLAQUENIL) 200 mg tablet Take by mouth twice daily. nitroglycerin sublingual (NITROQUICK) 0.4 mg SL tablet Dissolve 0.4 mg under the tongue every 5 minutes as needed. omeprazole (PRILOSEC) 20 mg capsule Take 20 mg by mouth once daily. oxyCODONE-acetaminophen (PERCOCET) 5-325 mg tablet Take 1 tablet by mouth as needed for Pain. OXYGEN, HOME THERAPY, Inhale 3 L/min as instructed continuous. potassium chloride ER (K-DUR, KLOR-CON) 20 mEq tablet Take 20 mEq by mouth twice daily. pregabalin (LYRICA) 75 mg capsule Take 75 mg by mouth three times daily. dicyclomine 10 mg ORAL capsule Take one(1) capsule three times daily. VERAPAMIL SR 180 MG 24 HR CAP Take one(1) tablet daily. TRIAMCINOLONE ACETONIDE 0.1 % TOPICAL CREAM Apply bid to phlebitis pentoxifylline(TRENTAL 400 MG TAB) Take one(1) tablet three times daily. NAPROXEN 375 MG TAB Take one(1) tablet two(2) times daily. FOLIC ACID 800 MCG TAB 2 tab daily cyanocobalamin(VITAMIN B-12 1,000 MCG TAB) Take one(1) tablet daily. meclizine hcl(ANTIVERT 25 MG TAB) Take one(1) tablet four (4) times daily. prn CENTRUM SILVER TAB Take one(1) tablet daily. ASPIRIN 81 MG TAB Take one (1) tablet daily . No current facility-administered medications for this visit. ALLERGIES Allergen Reactions - Bactrim [Sulfametho* Rash fungus in mouth - Fosamax [Alendronat* GI Upset gastritis in [facility] for one week - Naproxen Intolerance Tongue sensitive, difficulty swallowing PAST SURGICAL HISTORY Procedure Laterality Date - APPENDECTOMY 1961 - BUNIONECTOMY, LAPIDUS-TYPE bilateral - CARPAL TUNNEL bilateral - COLONOSCOP W/ OR W/[facility] SPEC 09/14/2000 Colonoscopy - COLONOSCOPY 11/[address] queen polyps removed - IA ANESTH,RADICAL HYSTERECTOMY 1973 - REMOVAL GALLBLADDER 1994 Physical Exam: Constitutional: Pt is a well developed 82 year old female who is alert, oriented, cooperative and in no apparent distress. OBJECTIVE: NVSI unchanged from previous visit. Dermatological: Nails 1-5 left are normal. Ingrowing nail of left 4th toe appears resolved without infection or pain. Webspaces clean and dry 1-4 left. Skin appears well hydrated and supple. good color, texture, turgor. No open lesions present. No callosities present. Musculoskeletal/Orthopaedic: Patient has no pain to palpation of left foot ASSESSMENT: (L60.0) Ingrowing toenail (primary encounter diagnosis) PLAN: 1. History and physical examination completed today. 2. Ingrowing toenail of left foot is all resolved. 3. No need for local wound care. 4. F/u as scheduled for nail care Josie Warner DPM CNOV Observed: 03/30/2018 Status: COMPLETED Source: [place] 1:10 PM [facility] REPOSITORY Office Visit (PODIWS) KILEY DREW ([id number]) 1935 F Date Time Provider Department 03/30/18 1:10 PM JOSIE WARNER During your visit today, we recorded the following information about you: Yoanna eLija RN, RN 03/30/2018 1:23 PM Signed AMB ROOMING INTAKE FLOWSHEET DATA Risk Screening Do you have concerns about personal safety or safety in the home?: No Patient presents with: Established Patient: left foot ingrown toenail recheck Patient is here in wheelchair alone. She is here for recheck of ingrown toenail of 4th toe on left foot. Patient denies pain at this time. Last OV was 03/11/18 BHUPINDER Rhodes RN 03/30/2018 1:20 PM Signed Follow up as scheduled for nail care Josie Warner DPM 03/30/2018 1:23 PM Signed Follow up podiatric office visit for: Chief Complaint: This 82 year old who presents for follow up:ingrowing nail of left 4th toe. Patient denies pain. She states the ingrown has resolved. She denies any other issues. PAIN EVALUATION No data found. No results found for: HBA1C PCP: Priya Jimenez, PAST MEDICAL HISTORY Diagnosis Date - Acute, but ill-defined, cerebrovascular disease - COPD (chronic obstructive pulmonary disease) ([facility]) - Heart disease - Lupus (systemic lupus erythematosus) ([facility]) - MT (myocardial infarction) ([facility]) - Myelodysplasia (myelodysplastic syndrome) ([facility]) - PAD (peripheral artery disease) ([facility]) - Peripheral vascular disease, unspecified ([facility]) - TIA (transient ischemic attack) Current Outpatient Prescriptions: Cholecalciferol, Vitamin D3, (VITAMIN D-3) 2,000 unit cap Take 2 capsules by mouth once daily. amLODIPine (NORVASC) 2.5 mg tablet Take 2.5 mg by mouth once daily. Ascorbic Acid 500 mg cpER Take 1 capsule by mouth twice daily. IRON POLYSACCHARIDE COMPLEX (FERREX 150 ORAL) Take 1 capsule by mouth twice daily. aclidinium bromide 400 mcg/actuation aepb Inhale 1 Puff as instructed twice daily. atorvastatin (LIPITOR) 80 mg tablet Take 80 mg by mouth once daily. budesonide-formoterol (SYMBICORT) 160-4.5 mcg/actuation inhaler Inhale 2 Puffs as instructed twice daily. carvedilol (COREG) 3.125 mg tablet Take 3.125 mg by mouth twice daily with meals. furosemide (LASIX) 40 mg tablet Take 40 mg by mouth twice daily. hydroxychloroquine (PLAQUENIL) 200 mg tablet Take by mouth twice daily. nitroglycerin sublingual (NITROQUICK) 0.4 mg SL tablet Dissolve 0.4 mg under the tongue every 5 minutes as needed. omeprazole (PRILOSEC) 20 mg capsule Take 20 mg by mouth once daily. oxyCODONE-acetaminophen (PERCOCET) 5-325 mg tablet Take 1 tablet by mouth as needed for Pain. OXYGEN, HOME THERAPY, Inhale 3 L/min as instructed continuous. potassium chloride ER (K-DUR, KLOR-CON) 20 mEq tablet Take 20 mEq by mouth twice daily. pregabalin (LYRICA) 75 mg capsule Take 75 mg by mouth three times daily. dicyclomine 10 mg ORAL capsule Take one(1) capsule three times daily. VERAPAMIL SR 180 MG 24 HR CAP Take one(1) tablet daily. TRIAMCINOLONE ACETONIDE 0.1 % TOPICAL CREAM Apply bid to phlebitis pentoxifylline(TRENTAL 400 MG TAB) Take one(1) tablet three times daily. NAPROXEN 375 MG TAB Take one(1) tablet two(2) times daily. FOLIC ACID 800 MCG TAB 2 tab daily cyanocobalamin(VITAMIN B-12 1,000 MCG TAB) Take one(1) tablet daily. meclizine hcl(ANTIVERT 25 MG TAB) Take one(1) tablet four (4) times daily. prn CENTRUM SILVER TAB Take one(1) tablet daily. ASPIRIN 81 MG TAB Take one (1) tablet daily . No current facility-administered medications for this visit. ALLERGIES Allergen Reactions - Bactrim [Sulfametho* Rash fungus in mouth - Fosamax [Alendronat* GI Upset gastritis in [facility] for one week - Naproxen Intolerance Tongue sensitive, difficulty swallowing PAST SURGICAL HISTORY Procedure Laterality Date - APPENDECTOMY 1961 - BUNIONECTOMY, LAPIDUS-TYPE bilateral - CARPAL TUNNEL bilateral - COLONOSCOP W/ [facility] W/[facility] SPEC 09/14/2000 Colonoscopy - COLONOSCOPY 11/[address] queen polyps removed - IA ANESTH,RADICAL HYSTERECTOMY 1973 - REMOVAL GALLBLADDER 1994 Physical Exam: Constitutional: Pt is a well developed 82 year old female who is alert, oriented, cooperative and in no apparent distress. OBJECTIVE: NVSI unchanged from previous visit. Dermatological: Nails 1-5 left are normal. Ingrowing nail of left 4th toe appears resolved without infection or pain. Webspaces clean and dry 1-4 left. Skin appears well hydrated and supple. good color, texture, turgor. No open lesions present. No callosities present. Musculoskeletal/Orthopaedic: Patient has no pain to palpation of left foot ASSESSMENT: (L60.0) Ingrowing toenail (primary encounter diagnosis) PLAN: 1. History and physical examination completed today. 2. Ingrowing toenail of left foot is all resolved. 3. No need for local wound care. 4. F/u as scheduled for nail care Josie Warner DPM Referring Provider: JOSIE WARNER [[id number]] Allergies As of Date: 03/30/2018 Noted Allergy Reaction BACTRIM (SULFAMETHOXAZOLE-TRIMETH*11/11/2005 2 - Rash Comments: fungus in mouth FOSAMAX (ALENDRONATE SODIUM) 03/02/2007 8 - GI Upset Comments: gastritis in [facility] for one week NAPROXEN 09/24/2008 5 - Intolerance Comments: Tongue sensitive, difficulty swallowing Date Reviewed: 03/30/2018 Reviewed by: Yoanna Conte) BHUPINDER Leija - Fully Assessed Reason for Visit: Established Patient [175] Cmt: left foot ingrown toenail recheck Reason For Visit History Recorded Primary Visit Diagnosis:Ingrowing toenail [L60.0] Prescriptions as of 03/30/2018 Sig: CHOLECALCIFEROL (VITAMIN D3) * Take 2 capsules by mouth once* AMLODIPINE 2.5 MG TABLET Take 2.5 mg by mouth once lore* ASCORBIC ACID (VITAMIN C) ER * Take 1 capsule by mouth twice* FERREX 150 ORAL Take 1 capsule by mouth twice* ACLIDINIUM BROMIDE 400 MCG/AC* Inhale 1 Puff as instructed t* ATORVASTATIN 80 MG TABLET Take 80 mg by mouth once tyrell* BUDESONIDE-FORMOTEROL HFA 160* Inhale 2 Puffs as instructed * CARVEDILOL 3.125 MG TABLET Take 3.125 mg by mouth twice * FUROSEMIDE 40 MG TABLET Take 40 mg by mouth twice lore* HYDROXYCHLOROQUINE 200 MG TAB* Take by mouth twice daily. NITROGLYCERIN 0.4 MG SUBLINGU* Dissolve 0.4 mg under the ton* OMEPRAZOLE 20 MG CAPSULE,LINDY* Take 20 mg by mouth once tyrell* OXYCODONE-ACETAMINOPHEN 5 MG-* Take 1 tablet by mouth as nee* OXYGEN (HOME THERAPY) Inhale 3 L/min as instructed * POTASSIUM CHLORIDE ER 20 MEQ * Take 20 mEq by mouth twice da* PREGABALIN 75 MG CAPSULE Take 75 mg by mouth three ilda* DICYCLOMINE 10 MG CAPSULE Take one(1) capsule three ilda* VERAPAMIL ER 180 MG 24 HR CAP* Take one(1) tablet daily. TRIAMCINOLONE ACETONIDE 0.1 %* Apply bid to phlebitis TRENTAL 400 MG TABLET,EXTENDE* Take one(1) tablet three time* NAPROXEN 375 MG TABLET Take one(1) tablet two(2) ilda* FOLIC ACID 800 MCG TABLET 2 tab daily VITAMIN B-12 1,000 MCG TABLET Take one(1) tablet daily. ANTIVERT 25 MG TABLET Take one(1) tablet four (4) t* CENTRUM SILVER TABLET Take one(1) tablet daily. ASPIRIN 81 MG TABLET Take one (1) tablet daily . 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] INVALID FOR* ABNORMAL FINDINGS-GI TRACT [R93.3] INVALID FOR* PAD (peripheral artery disease) (HCC) [I73.9] INVALID FOR* Other instructions from your clinician: Follow up as scheduled for nail care Encounter Status:Closed by JOSIE WARNER DPM on 03/30/18 PROGRESS Observed: 03/30/2018 Status: COMPLETED Source: [place] 1:07 PM [facility] [place] REPOSITORY O ID: [id number] Author: Yoanna (Rn) BHUPINDER Leija Service: (none) Author Type: Registered Nurse Type: Progress Notes Filed: 03/30/2018 1:23 PM Note Text: AMB ROOMING INTAKE FLOWSHEET DATA Risk Screening Do you have concerns about personal safety or safety in the home?: No Patient presents with: Established Patient: left foot ingrown toenail recheck Patient is here in wheelchair alone. She is here for recheck of ingrown toenail of 4th toe on left foot. Patient denies pain at this time. Last OV was 03/11/18 Yoanna Leija RN DEXA BONE DENSITY Observed: 03/15/2018 Status: F Source: [facility] 12:56 PM [facility] REPOSITORY [facility] Imaging Services [address] [place] [address] Dexa Bone Density Study MR#: [id number] Acct: [id number] Name: KILEY DREW Rep #: [id number] : 1935 F 82 From: Kit Castillo MD PCP: Priya Jimenez DO Status: [facility] Study: Dexa Bone Density Study Date of Exam: 03/15/18 Exam# [id number] Ordering Dr: PEDRO LUIS BREAUX STUDY: DUAL ENERGY X-RAY ABSORPTIOMETRY / DXA REASON FOR EXAM: Female, 82 years old. Early menopause. Loss of height. TECHNIQUE: Bone Mineral Density (BMD) measurements of lumbar spine and left hip were obtained. COMPARISON: Comparison is made with prior study dated September 27, 2013. FINDINGS: Lumbar Spine (L1-L4): g/cm2 (0.801) / T-score (-3.0) / Z-score (-1.2) Findings are suggestive of osteoporosis with a high fracture risk. Left Femur Total: g/cm2 (0.570) / T-score (-3.5) / Z- score (-1.4) Left Femoral Neck: g/cm2 (0.635) / T-score (-2.9) / Z- score (0.9) The T-Scores on the most recent prior examination were: Lumbar Spine (L1-L4): There has been worsening of bone density since the previous examination. Left Femur Total: which represents a worsening of 13.4%. BD/Dexa Bone Density Study IMPRESSION: The patient [...] Kit Castillo MD at 15:11 EST Tel [phone], Service support , CC: Priya BREAUX Split Leather Mosser: Signed PROGRESS Observed: 03/11/2018 Status: COMPLETED Source: [place] 2:41 PM [facility] [place] REPOSITORY HNO ID: [id number] Author: Josie aWrner Service: (none) Author Type: Physician Type: Progress Notes Filed: 03/11/2018 9:45 PM Note Text: Subjective: Patient presents to clinic c/o painful toenails. They state that the nails are especially painful with shoe gear and pressure. Patient states that nails 1-5 b/l are painful. No other pedal complaints at this time. Patient states no change in medications or medical history since last visit. Objective: Patient presents to clinic ambulating [facility] Vasc: DP and PT pulses are faint bilateral. CFT is less than 5 seconds bilateral. Skin temperature is warm to cool proximal to distal bilateral. There is no edema or varicosities noted. Neuro: Protective sensation is decreased to the foot and toes when tested with the 5.07 SWM bilateral. Vibratory sensation is decreased at the hallux IPJ bilateral. The hallux is downgoing bilateral. Derm: Nails 1-5 b/l are painful, ingrowing, discolored-yellow, thick, crumbly, dystrophic and with subungal debris. Skin is of normal turgor, texture and hair growth is decreased bilateral. There are no hyperkeratosis, ulcerations, scars, verruca or other lesions noted. Ortho: Muscle strength is 5/5 for all pedal groups tested. Ankle joint DF is full with the knee extended with no pain or crepitus noted. 1st MPJ ROM is full bilateral. Assessment: (B35.1) Onychomycosis (primary encounter diagnosis) (M79.675) Pain in toe of left foot (M79.674) Pain in toe of right foot (I73.9) PAD (peripheral artery disease) ([facility]) (L60.0) Ingrowing toenail Plan: Patient was seen and evaluated. Nails 1-5 bilateral were debrided in length and thickness. F/u in 3 months for nail care Josie Warner DPM PROGRESS Observed: 03/11/2018 Status: COMPLETED Source: [place] 2:09 PM [facility] [place] REPOSITORY HNO ID: [id number] Author: Rena Rowland RN Service: (none) Author Type: (none) Type: Progress Notes Filed: 03/11/2018 9:45 PM Note Text: AMB ROOMING INTAKE FLOWSHEET DATA Risk Screening Do you have concerns about personal safety or safety in the home?: No Pain Pain Score: 6/10 Pain Location: Other: See Comment (bilateral foot) Description: Burning, Other: See comment (feels hot AND cold) Duration Amount of Time: 2 Duration Units: Years Frequency: Continuous Intervention: Medication (oxycodone) Here for nail care. Remains having intermittent issues with neuropathy bilateral feet. Left foot seems to be more sensitive. Takes oxycodone for it. Rena Rowland RN CNOV Observed: 03/11/2018 Status: COMPLETED Source: [place] 1:50 PM [facility] REPOSITORY Office Visit (PODIWS) KILEY DREW ([id number]) 1935 F Date Time Provider Department 03/11/18 1:50 PM JOSIE WARNER During your visit today, we recorded the following information about you: Rena Rowland RN 03/11/2018 9:45 PM Signed AMB ROOMING INTAKE FLOWSHEET DATA Risk Screening Do you have concerns about personal safety or safety in the home?: No Pain Pain Score: 6/10 Pain Location: Other: See Comment (bilateral foot) Description: Burning, Other: See comment (feels hot AND cold) Duration Amount of Time: 2 Duration Units: Years Frequency: Continuous Intervention: Medication (oxycodone) Here for nail care. Remains having intermittent issues with neuropathy bilateral feet. Left foot seems to be more sensitive. Takes oxycodone for it. Rena Warner DPM 03/11/2018 9:45 PM Signed Subjective: Patient presents to clinic c/o painful toenails. They state that the nails are especially painful with shoe gear and pressure. Patient states that nails 1-5 b/l are painful. No other pedal complaints at this time. Patient states no change in medications or medical history since last visit. Objective: Patient presents to clinic ambulating [facility] Vasc: DP and PT pulses are faint bilateral. CFT is less than 5 seconds bilateral. Skin temperature is warm to cool proximal to distal bilateral. There is no edema or varicosities noted. Neuro: Protective sensation is decreased to the foot and toes when tested with the 5.07 SWM bilateral. Vibratory sensation is decreased at the hallux IPJ bilateral. The hallux is downgoing bilateral. Derm: Nails 1-5 b/l are painful, ingrowing, discolored-yellow, thick, crumbly, dystrophic and with subungal debris. Skin is of normal turgor, texture and hair growth is decreased bilateral. There are no hyperkeratosis, ulcerations, scars, verruca or other lesions noted. Ortho: Muscle strength is 5/5 for all pedal groups tested. Ankle joint DF is full with the knee extended with no pain or crepitus noted. 1st MPJ ROM is full bilateral. Assessment: (B35.1) Onychomycosis (primary encounter diagnosis) (M79.675) Pain in toe of left foot (M79.674) Pain in toe of right foot (I73.9) PAD (peripheral artery disease) ([facility]) (L60.0) Ingrowing toenail Plan: Patient was seen and evaluated. Nails 1-5 bilateral were debrided in length and thickness. F/u in 3 months for nail care Josie Warner DPM Referring Provider: SELF [200] Allergies As of Date: 03/11/2018 Noted Allergy Reaction BACTRIM (SULFAMETHOXAZOLE-TRIMETH*11/11/2005 2 - Rash Comments: fungus in mouth FOSAMAX (ALENDRONATE SODIUM) 03/02/2007 8 - GI Upset Comments: gastritis in [facility] for one week NAPROXEN 09/24/2008 5 - Intolerance Comments: Tongue sensitive, difficulty swallowing Date Reviewed: 03/11/2018 Reviewed by: Rena Rowland RN - Fully Assessed Reason for Visit: Established Patient [175] Cmt: nail care Primary Visit Diagnosis:Onychomycosis [B35.1] Other Visit Diagnoses:Pain in toe of left foot [M79.675] Pain in toe of right foot [M79.674] PAD (peripheral artery disease) ([facility]) [I73.9] Ingrowing toenail [L60.0] Order(s):amoxicillin-clavulanic acid (AUGMENTIN) 875-125 mg per tabletTake 1 tablet by mouth twice daily for 7 days. FOR 7 DAYS.Disp: 14 tabletRfl: 0 Prescriptions as of 03/11/2018 Sig: CHOLECALCIFEROL (VITAMIN D3) * Take 2 capsules by mouth once* AMLODIPINE 2.5 MG TABLET Take 2.5 mg by mouth once lore* ASCORBIC ACID (VITAMIN C) ER * Take 1 capsule by mouth twice* FERREX 150 ORAL Take 1 capsule by mouth twice* ACLIDINIUM BROMIDE 400 MCG/AC* Inhale 1 Puff as instructed t* ATORVASTATIN 80 MG TABLET Take 80 mg by mouth once tyrell* BUDESONIDE-FORMOTEROL HFA 160* Inhale 2 Puffs as instructed * CARVEDILOL 3.125 MG TABLET Take 3.125 mg by mouth twice * FUROSEMIDE 40 MG TABLET Take 40 mg by mouth twice lore* HYDROXYCHLOROQUINE 200 MG TAB* Take by mouth twice daily. NITROGLYCERIN 0.4 MG SUBLINGU* Dissolve 0.4 mg under the ton* OMEPRAZOLE 20 MG CAPSULE,LINDY* Take 20 mg by mouth once tyrell* OXYCODONE-ACETAMINOPHEN 5 MG-* Take 1 tablet by mouth as nee* OXYGEN (HOME THERAPY) Inhale 3 L/min as instructed * POTASSIUM CHLORIDE ER 20 MEQ * Take 20 mEq by mouth twice da* PREGABALIN 75 MG CAPSULE Take 75 mg by mouth three ilda* DICYCLOMINE 10 MG CAPSULE Take one(1) capsule three ilda* VERAPAMIL ER 180 MG 24 HR CAP* Take one(1) tablet daily. TRIAMCINOLONE ACETONIDE 0.1 %* Apply bid to phlebitis TRENTAL 400 MG TABLET,EXTENDE* Take one(1) tablet three time* NAPROXEN 375 MG TABLET Take one(1) tablet two(2) ilda* FOLIC ACID 800 MCG TABLET 2 tab daily VITAMIN B-12 1,000 MCG TABLET Take one(1) tablet daily. ANTIVERT 25 MG TABLET Take one(1) tablet four (4) t* CENTRUM SILVER TABLET Take one(1) tablet daily. ASPIRIN 81 MG TABLET Take one (1) tablet daily . 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 FOR 7 DAYS. Disposition: Return in about 2 weeks (around 03/25/2018) for ingrown toenail. Follow-up and Disposition History Recorded Encounter Status:Closed by JOSIE WARNER DPM on 03/11/18 CARDIOLOGY VISIT Observed: 02/01/2018 Status: F Source: [facility] REPORT 1:40 PM [facility] REPOSITORY [facility]. [address] [place] [address] OFFICE VISIT Date of Service: 02/01/18 MR#: [id number] Acct: [id number] Name: KILEY DREW Rep #: [id number] : 1935 Provider: Kaden Barboza MD Age/Sex: 82/F [place] [facility] [place]: Signed [facility] Chief Complaint: Follow up visit Details: KILEY DREW, is a 82 F who presents to the office today for a follow-up visit. She is a lady with a history of coronary artery disease status post previous angioplasty and stenting of her right coronary artery in 2013. 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 Her physical exam today demonstrates clear lung kevin regular rate and rhythm and mild pitting edema. 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 Required: No Accompanied by: none Is patient in pain?: No Allergies alendronate sodium [From Fosamax] Adverse Reaction (Severe, Verified 01/14/18 09:12) gastroenteritis sulfamethoxazole [From Bactrim] Adverse Reaction (Severe, Verified 01/14/18 09:12) thrush trimethoprim [From Bactrim] Adverse Reaction (Severe, Verified 01/14/18 09:12) thrush Medications Hydroxychloroquine [Plaquenil] 300 mg PO DAILY 07/06/15 [History Confirmed 02/01/18] Nitroglycerin [Nitrostat] 0.4 mg SUBLINGUAL Q5M PRN 07/06/15 [History Confirmed 02/01/18] Omeprazole [Prilosec] 20 mg PO DAILY 07/06/15 [History Confirmed 02/01/18] Oxycodone HCl/Acetaminophen [Percocet 5-325] 1 tab PO BID 07/06/15 [History Confirmed 02/01/18] Pregabalin [Lyrica] 75 mg PO TID 07/06/15 [History Confirmed 02/01/18] Aspirin [Aspirin, Baby] 81 mg PO DAILY@0800 08/23/15 [History Confirmed 02/01/18] Oxygen, Home [Home Oxygen] 3 lpm NASAL CONT 12/01/15 [History Confirmed 02/01/18] Ascorbic Acid [Vitamin C] 500 mg PO BID #60 tab 12/04/15 [Rx Confirmed 02/01/18] amlodipine 2.5 mg tablet 2.5 mg PO DAILY #30 tab 12/04/15 [Rx Confirmed 02/01/18] cholecalciferol (vitamin D3) 4,000 unit capsule 4,000 unit PO QDAY 07/01/17 [History Confirmed 02/01/18] polysaccharide iron complex 150 mg iron capsule 150 mg PO TID cap 07/05/17 [History Confirmed 02/01/18] aclidinium bromide 400 mcg/actuation breath activated powder inhaler 1 inh INHALATION BID #1 ea 07/14/17 [Rx Confirmed 02/01/18] albuterol sulfate HFA 90 mcg/actuation aerosol inhaler 2 puff INHALATION Q4H PRN #18 g 07/14/17 [Rx Confirmed 02/01/18] budesonide-formoterol HFA 160 mcg-4.5 mcg/actuation aerosol inhaler 2 puff INHALATION BID #10.2 g 07/14/17 [Rx Confirmed 02/01/18] furosemide 40 mg tablet 40 mg PO BID #60 tab 09/09/17 [Rx Confirmed 02/01/18] Cyanocobalamin [Vitamin B12] 1,000 mcg IM Q30D 10/14/17 [History Confirmed 02/01/18] atorvastatin 80 mg tablet 80 mg PO QHS #90 tab 01/26/18 [Rx Confirmed 02/01/18] carvedilol 3.125 mg tablet 3.125 mg PO BID #60 tab 01/26/18 [Rx Confirmed 02/01/18] potassium chloride ER 20 mEq tablet,extended release(part/cryst) 20 meq PO DAILY tab 02/01/18 [History Confirmed 02/01/18] [facility] Medical History Long-term use of high-risk medication (Chronic) 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) PND (post-nasal drip) (Chronic) Chronic obstructive pulmonary disease (Chronic) Coronary atherosclerosis of [place] coronary artery (Chronic) HLD (hyperlipidemia) (Chronic) HTN (hypertension) (Chronic) Personal history of transient ischemic attack (TIA) 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 (Chronic) CAD (coronary artery disease) (Chronic) Hypokalemia (Acute) Metabolic alkalosis with respiratory acidosis (Chronic) On home O2 (Chronic) History of MT (myocardial infarction) (Chronic) Acute blood loss anemia [...] double vision or blurry vision ENT ENT: Negative for headache(s), dizziness, balance problems, Nosebleed/epistaxis, tongue swelling or lip swelling Cardio Chest Pain: No Palpitations: No Edema: None Muscle aches with walking: None Resp Respiratory: Positive for SOB at rest and SOB with activity; negative for SOB orthopnea\SOB lying down, Cough or paroxysmal nocturnal dyspnea GI GI: Negative nausea, vomiting, heartburn, black,tarry stools or bright, red blood in stools : Negative for hematuria Musc Musc: Negative for balance problems, muscle aches/ myalgia, muscle weakness or joint pain Skin Skin: Negative non-healing lesions, unusual bruising or rash Neuro Neuro: Negative for weakness, frequent falls, headache(s), double vision, dizziness, lightheadedness, orthostatic symptoms, blurry vision or lack of coordination Anibal Hematologic/Lymphatic: Negative for easy bruising or easy bleeding Endo Endo: Negative for fatigue, excessive sweating, cold intolerance, heat intolerance, increased thirst/drinking or hair loss Psych Psych: Negative for anxiety or depression Allergy Allergy/Immunology: Negative for throat swelling, Negative for tongue swelling, Negative for hives, Negative for rash, Negative for lip swelling Cardiology Exam Const Appearance: cooperative, healthy appearing, well developed, well groomed and no acute distress Nutritional Appearance: well nourished and average body habitus Orientation: alert, awake and oriented x3 Head Head: normal to inspection, normocephalic and atraumatic Ears: hearing grossly normal bilaterally and external ears normal Nose: external nose normal, nasal mucous membranes and turbinates normal, nares normal, septum normal, no nasal discharge Face and Sinus: face symmetric Mouth: oral mucosae normal, tongue normal, oropharynx normal and moist mucous membranes Teeth and gingiva: dentition normal Throat: posterior oropharynx normal, tonsils normal and uvula midline Eyes General: appearance normal, both eyes and all related structures Eyelids: eyelids normal Conjunctivae: conjunctivae normal Pupils: PERRL, normal by confrontation and accommodation normal EOM: EOM intact bilaterally Neck Neck: normal visual inspection, trachea midline and no JVD JVD: +5 Carotids: normal carotid upstroke and bounding pulses Chest Chest inspection: normal inspection of [...] or lesions noted Extremities Lower Extremity Edema: Trace: Bilateral Musculoskel Musculoskeletal: No joint tenderness Psych Psychological: normal affect Assessment AND Plan 1. Presence of coronary angioplasty implant and graft Z95.5 PTCA AND stent to LCX AND first OM 09/28/13 Plan She is [...] do remember that her last echocardiogram had demonstrated an ejection fraction of approximately 50%. She remains on the carvedilol and the diuretic, and the low-dose of the amlodipine. The latter can probably be discontinued. 3. HLD (hyperlipidemia) E78.5 Plan She does have a history of hyperlipidemia. She remain on her high intensity statin at this particular time. 4. Chronic obstructive pulmonary disease J44.9 With chronic respiratory failure on 3 L oxygen [id number] history smoking Plan She does have a history of mild pulmonary hypertension with chronic O2 dependency. Her last echocardiogram had demonstrated pulmonary pressures at approximately 44-46 mmHg. She will continue on her diuretics with no changes. Thank you for allowing me to participate in the care of your patient. Please don't hesitate to call if any issues arise Plan Detail Follow Up 6 Months (mmm) Coding Level of Care Code Off vis,est,level 3 Diagnoses Presence of coronary angioplasty implant and graft Z95.5 HTN (hypertension) I10 HLD (hyperlipidemia) E78.5 Chronic obstructive pulmonary disease J44.9 Coding Level of Care Code Off vis,est,level 3 Diagnoses Presence of coronary angioplasty implant and graft Z95.5 HTN (hypertension) I10 HLD (hyperlipidemia) E78.5 Chronic obstructive pulmonary disease J44.9 02/01/18 1340 <Electronically signed by Kaden Barboza MD> Date Kaden Barboza MD Cosigner Signature: Date (if applicable) CC: Priya Jimenez DO PULMONARY VISIT REPORT Observed: 01/14/2018 Status: F Source: [facility] 1:52 PM [facility] REPOSITORY [facility] [address] [place] [address] OFFICE VISIT Date of Service: 01/14/18 MR#: [id number] Acct: [id number] Name: KILEY DREW Rep #: [id number] : 1935 Provider: Aida Lindo Age/Sex: 82/F [facility] Status: Signed Assessment AND Plan 1. Stage 3 severe COPD by GOLD classification J44.9 Plan Does not appear to be an exacerbation of COPD today. No need for prednisone or antibiotic. Continue current maintenance medication. PFT prior to next previously scheduled routine follow-up. Contact the office for any new or worsening symptoms. An acute visit and typically be arranged within 1-2 days. Influenza vaccination today. Keep previously scheduled routine follow-up. 2. Chronic respiratory failure with hypoxia J96.11 Plan Continue to utilize submental oxygen as needed to maintain saturations 8990%. Patient is using and benefiting from submental oxygen. No additional testing at this time. 3. Tobacco dependence F17.200 Plan Continue to encourage smoking cessation. Plan Detail Other Orders Orders: Other Medications Discontinued: Fluad 2017- 65yr up(PF)45 mcg(15 mcgx3)/0.5 mL int0.5 mL IM ONCE NS Z23 Adeola Jaime ramuscular syringe (flu vac 2017 [id number](PF)) Discontinued Reason: Office Medication has been Documented as given HPI F2F for POC: Chief Complaint: Shortness of breath HPI Comments Details: The patient presents the office [...] continues to smoke one half pack of cigarettes daily, she is cutting back. She does report that she understands that she may not smoke while wearing oxygen as it is a hazard. Intake Vital Signs01/14/18 Height 5 ft 2 in 01/14/18 Weight: 125 lb 01/14/18 Body Mass Index (BMI) 22.8 Intake Visit Reasons: F2F for POC Chief Complaint: Shortness of breath on exertion Professional Athletes Coach Required: No Accompanied by: Self Is patient in pain?: Yes Allergies alendronate sodium [From Fosamax] Adverse Reaction [...] mg SUBLINGUAL Q5M PRN 07/06/15 [History Confirmed 01/14/18] Omeprazole [Prilosec] 20 mg PO DAILY 07/06/15 [History Confirmed 01/14/18] Oxycodone HCl/Acetaminophen [Percocet 5-325] 1 tab PO BID 07/06/15 [History Confirmed 01/14/18] Potassium Chloride [K-Dur] 20 meq PO BID 07/06/15 [History Confirmed 01/14/18] Pregabalin [Lyrica] 75 mg PO TID 07/06/15 [History Confirmed 01/14/18] Aspirin [Aspirin, Baby] 81 mg PO DAILY@0800 08/23/15 [History Confirmed 01/14/18] Oxygen, Home [Home Oxygen] 3 lpm NASAL CONT 12/01/15 [History Confirmed 01/14/18] Amlodipine [Norvasc] 2.5 mg PO DAILY #30 tab 12/04/15 [Rx Confirmed 01/14/18] Ascorbic Acid [Vitamin C] 500 mg PO BID #60 tab 12/04/15 [Rx Confirmed 01/14/18] guaifenesin 400 mg tablet 400 mg PO Q4H PRN #30 tab 04/09/17 [Rx Confirmed 01/14/18] cholecalciferol (vitamin D3) 4,000 unit capsule 4,000 unit PO QDAY 07/01/17 [History Confirmed 01/14/18] polysaccharide iron complex 150 mg iron capsule 150 mg PO TID cap 07/05/17 [History Confirmed 01/14/18] aclidinium bromide 400 mcg/actuation breath activated powder inhaler 1 inh INHALATION BID #1 ea 07/14/17 [Rx Confirmed 01/14/18] albuterol sulfate HFA 90 mcg/actuation aerosol inhaler 2 puff INHALATION Q4H PRN #18 g 07/14/17 [Rx Confirmed 01/14/18] budesonide-formoterol HFA 160 mcg-4.5 mcg/actuation aerosol inhaler 2 puff INHALATION BID #10.2 g 07/14/17 [Rx Confirmed 01/14/18] nicotine 21 mg/24 hr daily transdermal patch 21 mg TRANSDERMAL ONCE #30 patch 07/14/17 [Rx Confirmed 01/14/18] furosemide 40 mg tablet 40 mg PO BID #60 tab 09/09/17 [Rx Confirmed 01/14/18] Cyanocobalamin [Vitamin B12] 1,000 mcg IM Q30D 10/14/17 [History Confirmed 01/14/18] PFSH Medical History Long-term use of high-risk medication (Chronic) 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) PND (post-nasal drip) (Chronic) Chronic obstructive pulmonary disease (Chronic) Coronary atherosclerosis of [place] coronary artery (Chronic) HLD (hyperlipidemia) (Chronic) HTN (hypertension) (Chronic) Personal history of transient ischemic attack (TIA) 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 (Chronic) CAD (coronary artery disease) (Chronic) Hypokalemia (Acute) Metabolic alkalosis with respiratory acidosis (Chronic) On home O2 (Chronic) History of MT (myocardial infarction) (Chronic) Acute blood loss anemia [...] pain, nose bleed, headache(s), mouth pain, nasal congestion, nasal discharge, post nasal drip, sinus pain, sinus pressure, sore throat or other Cardio Cardiovascular: Negative chest pain, chest pain at rest, chest pain with activity, irregular heart rhythm, edema, shortness of breath when lying down, palpitations, murmur or other Resp Respiratory: Positive as per HPI and shortness of breath; negative pain with cough, wheezing, chest congestion, cough, chest tightness, pain on [...] negative nystagmus or scleral abnormality Ears Ear: Positive hearing normal and external ears normal; negative hard of hearing Nose Nose: Positive external nose normal and no nasal discharge; negative epistaxis Mouth Mouth: Positive oral mucosae normal, dentures, no lesions and posterior oropharynx is adequate; negative post nasal drip, malodorous breath or oral thrush present Mallampati Score: I: Mallampati Score Neck Neck: Positive normal visual inspection, full ROM and trachea midline; negative lymphadenopathy, JVD or tender Chest Wall Chest: Positive symmetric chest movement and increased A/P diameter Resp lung sounds: Positive diminished, prolonged expiratory time and normal chronic state of increased work of breathing; negative wheezes, rhonchi, rales, dullness to percussion or wheeze present on forced exhalation Cardio Cardiac: Positive regular rate, regular rhythm, S1 normal and S2 normal; negative murmur GI GI: Positive normal to inspection; negative distended Genitourinary: Positive deferred Musc Musculoskeletal: Positive ROM normal and in a wheelchair; negative kyphosis or scoliosis Skin Pulmonary Skin Exam: Positive intact; negative rash Pulses Pulse: Yes pulses normal x4 extremities Extremities Extremities: Yes capillary refill normal, Yes clubbing, No cyanosis, No edema Neuro Neurologic: Yes conversant, Yes no focal neuro deficits, Yes normal concentration, Yes understands questions, Yes cooperative, Yes normal cognition, Yes normal coordination Lymph Lymphatic: No lymphadenopathy, No tenderness, No cervical adenopathy Psych Appearance: Positive grossly normal, eye contact and well kempt Mental Status: Positive mental status grossly normal Mood: Positive congruent mood Affect: Positive normal affect Office Meds Fluad 2017- 65yr up(PF)45 mcg(15 mcgx3)/0.5 mL intramuscular syringe Performing Provider: GORGE Renee Administered by: Adeola Jaime on 01/14/18 13:40 Dose Route Admin Location Lot Number Expiration Date NDC Transmission Inspector 0.5 mL IM Lt Deltoid [id number] 08/23/18 86800-233-37 SE[employer] Coding Level of Care Code Off vis,est,level 3 Diagnoses Stage 3 severe COPD by GOLD classification J44.9 Chronic respiratory failure with hypoxia J96.11 Tobacco dependence F17.200 01/14/18 1352 <Electronically signed by Aida Lindo NP-C> Date Aida Lindo CREDENTIALING COORDINATOR-C Cosigner Signature: Date (if applicable) CC: Priya Jimenez DO ONCOLOGY VISIT REPORT Observed: 01/12/2018 Status: F Source: [facility] 1:28 PM [facility] REPOSITORY [facility] [address] [place] [id number] OFFICE VISIT Date of Service: 01/12/18 1316 MR#: [id number] Acct: [id number] Name: KILEY DREW Rep #: [id number] : 1935 From: Ronan Montenegro MD Age/Sex: 82/F Location: [facility] Status: Signed Subjective - Date of Service Date of Service:: 01/12/18 - Chief Complaint F/u for MDS. - History of Present Illness Ms. Kiley Drew is a pleasant 82y.o.woman was found to have severe anemia in November 2015. 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 Flow cytometry revealed no significant immunophenotypic abnormality, normal female karyotype observed. Blasts 2%. She is currently on observation, comes in for follow up. She feels well, gets bruises on the forearms on and off.. - Past Medical/Social History Past Medical History Past Medical History: Anemia,Blood transfusion,Cataracts,Chronic bronchitis,Congestive heart failure,COPD,Hearing problems,Heart disease,Hyperlipidemia, Hypertension,Osteopenia,Pneumonia,Stroke,Vision problems,Neuropathy,IBS,Carpal tunnel syndrome, Fatigue,Diarrhea,Peripheral neuropathy Other Past Medical History: LUPOS SLE Cancer: Skin cancer Past Surgical History Surgical: Carpal tunnel,Hysterectomy Other Surgical History: FOOT SURGERY Family History Paternal Past Medical History: Alzheimer's disease,Heart disease Maternal Past Medical History: Crohn's disease Social History Smoking Status Current every day smoker Review of Systems Constitutional:: Reports: Sweats. Denies: Fever Cardiovascular:: Denies: Chest pain, Palpitations, Dyspnea on exertion, Orthopnea, PND, Shortness of breath Respiratory: Reports: - - on home O2 Gastrointestinal:: Denies: Reflux Genitourinary: Denies: Dysuria, Hematuria, 15, Flank pain Musculoskeletal:: Denies: Back pain, Myalgia, Arthralgia Skin: Reports: - - bruises of forearm on and off.. Denies: Rash, Skin Changes, [...] - - R leg shorter than L leg.. Negative for: Cyanosis, Edema Neurological: Neuro grossly intact Skin:: Lesions - few small bruises R and L forearm.. Negative for: Rash, Petechiae, Ecchymosis Psychiatric:: Appropriate affect, Euthymic Lymphatics:: Negative for: Cervical lymphadenopathy, Supraclavicular lymphadenopathy, Axillary lymphadenopathy Laboratory Data: Laboratory Tests WBC 7.4 8.0 Hgb 12.2 13.1 Assessment and Plan MDS-RARS, Hgb is about 12. IPSS-1. Clinically stable, asymptomatic. Hypokalemia on Potassium supplements at home. Skin Fragility leading to bruises. Plan is to continue observation. RTC 3 months with CBC/CMP. Medications: Prescriptions This Visit Medication Instructions Recorded Cyanocobalamin [Vitamin B12] 1,000 mcg IM Q30D 10/14/17 Primary Care Provider: Referring Provider: - Problem List (1) MDS (myelodysplastic syndrome) Status: Chronic Code Visit Office Visits / Consults: 47833 OV L3 Est 01/12/18 1328 <Electronically signed by Ronan Montenegro MD> Date Ronan Montenegro MD Cosigner Signature: Date (if applicable) CC: 6 MINUTE WALK TEST Observed: 01/12/2018 Status: F Source: [place] 8:12 AM [facility] REPOSITORY [facility] Pulmonary Services/Neurology [address] [place] [address] MR#: [id number] Acct: [id number] Name: KILEY DREW Rep #: [id number] : 1935 82 From: Sincere Lauren MD Referring Dr: Aida Lindo NP Date: Ordering Dr: Sex: F C Location: PSN PSN 6 Minute Walk Test - 6 Minute Walk Test 6 Minute Walk Test: 6 Minute Walk Test PSN:6-Minute Walk Test Start: 01/11/18 13:24 Freq: Status: Active Protocol: [id number] Document 01/11/18 12:45 HG (Rec: 01/11/18 13:29 HG [id number]) 6 Minute Walk Test Date Performed 01/11/18 Time Performed 12:45 Height 5 ft 2 in Weight: 56.245 [...] Taken 1 Reported Symptoms Increased Work of Breathing 3rd minute Oxygen Flow Rate (L/min) (L/min) 3 Oxygen Delivery Method Nasal Cannula Pulse Ox (%) 89 Pulse Rate (60-100 beats/min) 67 Number of Rests Taken 1 Reported Symptoms Increased Work of Breathing 4th minute Oxygen Flow Rate (L/min) (L/min) 3 Oxygen Delivery Method Nasal Cannula Pulse Ox (%) 83 Pulse Rate (60-100 beats/min) 72 Number of Rests Taken 1 Reported Symptoms Increased Work of Breathing 5th minute Oxygen Flow Rate (L/min) (L/min) 4 Oxygen Delivery Method Nasal Cannula Pulse Ox (%) 93 Pulse Rate (60-100 beats/min) 68 6th minute Oxygen Delivery Method Nasal Cannula Pulse Ox (%) 4 Pulse Rate (60-100 beats/min) 94 Dyspnea Kelsey Scale [...] cornerstone. Pt trying to get switched to [facility] to be able to do a portable concentrator. Pt currently on pulse dose, recommended pt to be on continuous flow of Oxygen while exerting herself as pt gets short of breath and desat's. Initialized on 01/11/18 13:26 - END OF NOTE - Interpretation Interpretation: The patient was noted to be 87% on room air. Patient was then placed on 2 L nasal cannula with improvement in saturations. The patient then ambulated 236 feet over the course of 6 minutes with the assistance of a walker requiring 4 L nasal cannula to maintain appropriate saturations. No significant tachycardia was noted. These findings are consistent with a respiratory limitation exercise tolerance. - Recommendations Recommendations: 2 L/min nasal cannula oxygen are noted at rest and up to 4 L/min would be required with exertion. 01/12/18811 <Electronically signed by Sincere Lauren MD> Date Sincere Lauren MD CC: Date Dictated: 01/12/18809 Date Transcribed: 01/12/18809 Split Leather Mosser: Sincere Lauren Signed CBC W/DIFF, AUTOMATED Collected: 01/03/2018 Status: F Source: [place] 9:45 AM [facility] REPOSITORY Order Comment: Reason for Laboratory Test . TYPE CODE TESTS RESULT OUT OF RANGE REFERENCE UNITS LAB L100.1000 4.4-11.0 K/mm3 Normal WBC 8.0 LAB L100.1200 4.2-5.4 M/mm3 Normal RBC 4.57 LAB L100.1300 12.0-15.0 g/dl Normal HGB 13.1 LAB L100.1400 37-47 % Normal HCT 44.3 LAB L100.1500 81-99 fL Normal MCV 96.9 LAB L100.1600 27.0-32.0 pg Normal MCH 28.7 LAB L100.1700 32-36 g/gl Low MCHC 29.6 LAB L100.1810 11.6-14.6 % Normal RDW CV 13.2 LAB L100.1820 35.1-43.9 fl High RDW SD 46.8 LAB L100.1900 150-450 K/mm3 Normal PLT 222 LAB L100.2000 6.2-12.0 fl Normal MPV 10.6 LAB L100.2100 47-70 % High NEUT% 75.8 LAB L100.2200 19-41 % Low LY% 10.8 LAB L100.2300 0-10 % High MONO% 11.3 LAB L100.2400 0-5 % Normal EO% 1.6 LAB L100.2500 0-1 % Normal BASO% 0.4 LAB L100.2550 0.0-0.9 % Normal IM GRAN % 0.100 Result Comment: IG% - Immature Granulocytes (promyelocytes, myelocytes and metamyelocytes) > 1% indicates that a LEFT SHIFT is Present. LAB L100.2620 2.0-7.7 X10 3/uL Normal Absolute Neut 6.0 LAB L100.2720 0.83-4.51 X10 3/ul Normal Absolute Lymph 0.86 Performed By: #### L100.0100, L500.4050, L503.6030, L503.6550 #### [facility] [address] [place], [address] COMPREHENSIVE METABOLIC Collected: 01/03/2018 Status: F Source: [facility] 9:45 AM [facility] REPOSITORY TYPE CODE TESTS RESULT OUT OF RANGE REFERENCE UNITS LAB L501.0100 74-106 mg/dL High GLU 136 Result Comment: Fasting Glucose result greater than or equal to 126 mg/dL suggests DIABETES MELLITUS per A.D.A. criteria. Please note revised GLUCOSE reference range effective 2017. LAB L501.1000 7-18 mg/dL High BUN 25 LAB L501.1100 0.55-1.02 mg/dL Normal CREAT,SERUM 0.73 Result Comment: The validity of the calculated GFR AND GFRAA in patients over 70 years has not been determined. Clinical correlation is essential. LAB L501.1110 >60 mL/min Normal EST GFR 81 Result Comment: Non- GFR Calc LAB L501.1115 >60 mL/min Normal EST GFR - AA 98 Result Comment: GFR Calc LAB L501.1300 10-20 RATIO High BUN/CRE 34.2 LAB L501.1500 6.4-8.2 g/dL T Normal PROT 7.3 LAB L501.1800 3.2-5.0 g/dL Normal ALB 3.4 LAB L501.1950 2.2-4.2 g/dL Normal GLOB 3.9 LAB L501.2000 0.9-2.4 RATIO Normal A/G 0.9 LAB L501.2200 8.5-10.1 mg/dL CA Normal 9.2 LAB L501.4100 15-37 U/L Normal AST 28 LAB L501.4305 45-117 U/L Normal ALK P 74 LAB L501.4405 13-56 U/L Normal ALT 21 LAB L501.4600 0.20-1.00 mg/dL T Normal BILI 0.30 LAB L501.5300 136-145 mmol/L NA Normal 140 LAB L501.5600 3.5-5.1 mmol/L Low K 3.2 LAB L501.5900 98-107 mmol/L Low CL 92 LAB L501.6100 21.0-32.0 mmol/L High CO2 42.0 LAB L501.6200 5-15 Normal GAP 6 Performed By: #### L100.0100, L500.4050, L503.6030, L503.6550 #### [facility] [address] [facility] [place], [address] IRON+IRON BINDING Collected: 01/03/2018 Status: F Source: [facility] 9:45 AM [facility] REPOSITORY TYPE CODE TESTS RESULT OUT OF RANGE REFERENCE UNITS LAB L503.6075 250-450 ug/dL TIBC Normal 329 LAB L503.6150 50-170 ug/dL IRON Normal 63 LAB L503.6250 15.0-55.0 % IRON Normal SATURATION 19.1 Performed By: #### L100.0100, L500.4050, L503.6030, L503.6550 #### [facility] [address] [place], [place], [address] FERRITIN Collected: 01/03/2018 Status: F Source: [facility] 9:45 AM [facility] REPOSITORY TYPE CODE TESTS RESULT OUT OF REFERENCE UNITS RANGE LAB L503.6550 8-252 ng/mL High FERRITIN 261 Performed By: #### L100.0100, L500.4050, L503.6030, L503.6550 #### [facility] [address] [place], [place], [address] PROGRESS Observed: 11/18/2017 Status: COMPLETED Source: [place] 2:31 PM [facility] REPOSITORY HNO ID: [id number] Author: Josie Warner Service: (none) Author Type: Physician Type: Progress Notes Filed: 11/18/2017 2:58 PM Note Text: Josie Warner DPM Department of Podiatry [address] [facility] [address] Dept: [phone] Dept Nail Care SUBJECTIVE: Follow up office visit: This 82 year old female presents to clinic c/o painful toenails. Patient states that the nails are especially painful with shoe gear and pressure. Patient is not a diabetic. Patient denies claudication type symptoms when walking. No other pedal complaints at this time. No change in medications or medical history since last visit. OBJECTIVE: Vasc: DP and PT pulses are nonpalpable bilateral. CFT is less than 8 seconds bilateral. Skin temperature is warm to cool proximal to distal bilateral. There is no edema or varicosities noted. Hair growth absent. Neuro: Protective sensation is absent to the foot and toes when tested with the 5.07 SWM bilateral. Vibratory sensation is absent at the hallux bilateral. significant neurological defecits. Derm: Inspection and palpation performed. Nails 1-5 b/l are painful, discolored-yellow, thick, crumbly, dystrophic and with subungal debris. Skin is of normal turgor and texture. Hyperkeratosis right 1st metatarsal. NO ulcerations, scars, verruca or other lesions noted. Ortho: Ankle joint DF is full with the knee extended and full with knee flexed. No pain or crepitus noted. STJ, MTJ ROM are full and free of pain or crepitus. Muscle strength is 5/5 for dorsiflexors, plantarflexors, inverters, everters. Digital deformities include no. ASSESSMENT: (B35.1) Onychomycosis (primary encounter diagnosis) Plan: 1. Patient was seen and evaluated. 2. Nails 1-5 bilateral were debrided in length and thickness. 3. RTC 3-4 months for nail care (O20.870) Pain in toe of left foot Plan: same as above (C17.124) Pain in toe of right foot Plan: same as above Hyperkeratosis: Debrided callus to right 1st metatarsal with sanding disk as courtesy. Smoking cessation performed. f/u in 3 months Josie Warner DPM CNOV Observed: 11/18/2017 Status: COMPLETED Source: [place] 2:10 PM [facility] REPOSITORY Office Visit (PODIWS) RAJENDRAKILEY Jada ([id number]) 1935 F Date Time Provider Department 11/18/17 2:10 PM JOSIE WARNER During your visit today, we recorded the following information about you: Josie Warner DPM 11/18/2017 2:58 PM Signed Josie Warner DPM Department of Podiatry [address] [facility] [address] Dept: [phone] Dept Nail Care SUBJECTIVE: Follow up office visit: This 82 year old female presents to clinic c/o painful toenails. Patient states that the nails are especially painful with shoe gear and pressure. Patient is not a diabetic. Patient denies claudication type symptoms when walking. No other pedal complaints at this time. No change in medications or medical history since last visit. OBJECTIVE: Vasc: DP and PT pulses are nonpalpable bilateral. CFT is less than 8 seconds bilateral. Skin temperature is warm to cool proximal to distal bilateral. There is no edema or varicosities noted. Hair growth absent. Neuro: Protective sensation is absent to the foot and toes when tested with the 5.07 SWM bilateral. Vibratory sensation is absent at the hallux bilateral. significant neurological defecits. Derm: Inspection and palpation performed. Nails 1-5 b/l are painful, discolored-yellow, thick, crumbly, dystrophic and with subungal debris. Skin is of normal turgor and texture. Hyperkeratosis right 1st metatarsal. NO ulcerations, scars, verruca or other lesions noted. Ortho: Ankle joint DF is full with the knee extended and full with knee flexed. No pain or crepitus noted. STJ, MTJ ROM are full and free of pain or crepitus. Muscle strength is 5/5 for dorsiflexors, plantarflexors, inverters, everters. Digital deformities include no. ASSESSMENT: (B35.1) Onychomycosis (primary encounter diagnosis) Plan: 1. Patient was seen and evaluated. 2. Nails 1-5 bilateral were debrided in length and thickness. 3. RTC 3-4 months for nail care (M79.675) Pain in toe of left foot Plan: same as above (M79.674) Pain in toe of right foot Plan: same as above Hyperkeratosis: Debrided callus to right 1st metatarsal with sanding disk as courtesy. Smoking cessation performed. f/u in 3 months Josie Warner DPM Referring Provider: SELF [200] Allergies As of Date: 11/18/2017 Noted Allergy Reaction BACTRIM (SULFAMETHOXAZOLE-TRIMETH*11/11/2005 2 - Rash Comments: fungus in mouth FOSAMAX (ALENDRONATE SODIUM) 03/02/2007 8 - GI Upset Comments: gastritis in [facility] for one week NAPROXEN 09/24/2008 5 - Intolerance Comments: Tongue sensitive, difficulty swallowing Date Reviewed: 11/18/2017 Reviewed by: Carlene Poole RN - Fully Assessed Reason for Visit: Established Patient [175] Cmt: nail care Primary Visit Diagnosis:Onychomycosis [B35.1] Other Visit Diagnoses:Pain in toe of left foot [M79.675] Pain in toe of right foot [M79.674] Prescriptions as of 11/18/2017 Sig: CHOLECALCIFEROL (VITAMIN D3) * Take 2 capsules by mouth once* AMLODIPINE 2.5 MG TABLET Take 2.5 mg by mouth once lore* ASCORBIC ACID (VITAMIN C) ER * Take 1 capsule by mouth twice* FERREX 150 ORAL Take 1 capsule by mouth twice* ACLIDINIUM BROMIDE 400 MCG/AC* Inhale 1 Puff as instructed t* ATORVASTATIN 80 MG TABLET Take 80 mg by mouth once tyrell* BUDESONIDE-FORMOTEROL HFA 160* Inhale 2 Puffs as instructed * CARVEDILOL 3.125 MG TABLET Take 3.125 mg by mouth twice * FUROSEMIDE 40 MG TABLET Take 40 mg by mouth twice lore* HYDROXYCHLOROQUINE 200 MG TAB* Take by mouth twice daily. NITROGLYCERIN 0.4 MG SUBLINGU* Dissolve 0.4 mg under the ton* OMEPRAZOLE 20 MG CAPSULE,LINDY* Take 20 mg by mouth once tyrell* OXYCODONE-ACETAMINOPHEN 5 MG-* Take 1 tablet by mouth as nee* OXYGEN (HOME THERAPY) Inhale 3 L/min as instructed * POTASSIUM CHLORIDE ER 20 MEQ * Take 20 mEq by mouth twice da* PREGABALIN 75 MG CAPSULE Take 75 mg by mouth three ilda* VITAMIN B-12 1,000 MCG TABLET Take one(1) tablet daily. ASPIRIN 81 MG TABLET Take one (1) tablet daily . DICYCLOMINE 10 MG CAPSULE Take one(1) capsule three ilda* VERAPAMIL ER 180 MG 24 HR CAP* Take one(1) tablet daily. TRIAMCINOLONE ACETONIDE 0.1 %* Apply bid to phlebitis TRENTAL 400 MG TABLET,EXTENDE* Take one(1) tablet three time* NAPROXEN 375 MG TABLET Take one(1) tablet two(2) ilda* FOLIC ACID 800 MCG TABLET 2 tab daily ANTIVERT 25 MG TABLET Take one(1) tablet four (4) t* CENTRUM SILVER TABLET Take one(1) tablet daily. 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 Follow-up and Disposition History Recorded Encounter Status:Closed by JOSEI WARNER DPM on 11/18/17 PULMONARY VISIT REPORT Observed: 11/11/2017 Status: F Source: [place] 3:59 PM [facility] REPOSITORY [facility] [address] [place] [address] OFFICE VISIT Date of Service: 11/11/17 MR#: [id number] Acct: [id number] Name: KILEY DREW Rep #: [id number] : 1935 Provider: Sincere Lauren MD Age/Sex: 82/F Location: [facility] Status: Signed Assessment AND Plan Problems 1. Stage 3 severe COPD by GOLD classification J44.9 2. Tobacco dependency F17.200 3. Congestive heart failure with left ventricular systolic dysfunction I50.20 4. MDS (myelodysplastic syndrome) D46.9 Plan Patient with advanced COPD by PFT criteria. Unfortunately, patient continues to smoke and likely has had progression. Will obtain a complete pulmonary function test for quantification and clarification of current lung function. Did discuss transition to nebulized medications, but patient is refusing at this time after learning that there are no more efficacious than the inhaler she currently has. Continue with triple therapy and supplemental oxygen. Keep saturations greater than 90% at all times. Patient will be highly sensitive to anemia from her myelodysplastic syndrome if this were to reactivate. Obtain complete pulmonary function test. Continue triple therapy. Supplemental oxygen as ordered. Orders Orders: Plan Detail Follow Up 3 Months (CSM) HPI 3 M FU: Chief Complaint: Shortness of breath on exertion Details: Patient is an 82-year-old female, currently the care of Dr. Jimenez, who presents for evaluation secondary to shortness of breath on exertion. Since last visit, patient denies any ER visits, hospitalizations or prednisone burst. Patient was initiated on Flonase with some improvement in nasal symptoms. Patient is still reporting intermittent watery eyes. Patient has been compliant with Tudorza and Symbicort therapy. Patient denies any complications such as thrush, hoarseness or sore throat. Patient did have questions about possible use of nebulizers for augmentation of prevention. Patient reports worsening respiratory status during high humidity and high temperature days. Patient feels she is at her baseline when she is in air conditioning. Patient denies any current chest pain, abdominal pain, nausea, vomiting, fever, chills, hemoptysis or syncope. Patient does have dizziness with walking, but attributes this to her stroke. Patient does continue to smoke approximate 1 pack per day. Oj discussion with patient revealed that she has no intention of quitting in the near future. Patient feels that my lungs are already gone, so what is the matter. Patient does admit to using albuterol intermittently to help with toleration of cigarettes. Patient has been noting some overnight snoring. Patient does report fatigue most of the time, but thinks this is secondary to her lung disease. Patient does feel that occasionally mucus will get caught in her throat leading to a pressure type sensation. Patient will force herself to cough with relieving of the symptoms. Patient has been using 3-1/2 L nasal cannula oxygen at all times. No testing was reviewed at this visit Intake Vital Signs11/11/17 Height 5 ft 2 in 11/11/17 Weight: 56.699 kg 11/11/17 Body Mass Index (BMI) 22.8 Intake Visit Reasons: 3 M FU Chief [...] 300 mg PO DAILY 07/06/15 [History Confirmed 10/14/17] Nitroglycerin [Nitrostat] 0.4 mg SUBLINGUAL Q5M PRN 07/06/15 [History Confirmed 10/14/17] Omeprazole [Prilosec] 20 mg PO DAILY 07/06/15 [History Confirmed 10/14/17] Oxycodone HCl/Acetaminophen [Percocet 5-325] 1 tab PO BID 07/06/15 [History Confirmed 10/14/17] Potassium Chloride [K-Dur] 20 meq PO BID 07/06/15 [History Confirmed 10/14/17] Pregabalin [Lyrica] 75 mg PO TID 07/06/15 [History Confirmed 10/14/17] Aspirin [Aspirin, Baby] 81 mg PO DAILY@0800 08/23/15 [History Confirmed 10/14/17] Oxygen, Home [Home Oxygen] 3 lpm NASAL CONT 12/01/15 [History Confirmed 10/14/17] Amlodipine [Norvasc] 2.5 mg PO DAILY #30 tab 12/04/15 [Rx Confirmed 10/14/17] Ascorbic Acid [Vitamin C] 500 mg PO BID #60 tab 12/04/15 [Rx Confirmed 10/14/17] Nicotine [Nicoderm Cq] 21 mg TRANSDERM. DAILY #28 patch 12/04/15 [Rx Confirmed 10/14/17] guaifenesin 400 [...] TRANSDERMAL ONCE #30 patch 07/14/17 [Rx Confirmed 10/14/17] furosemide 40 mg tablet 40 mg PO BID #60 tab 09/09/17 [Rx Confirmed 10/14/17] Cyanocobalamin [Vitamin B12] 1,000 mcg IM Q30D 10/14/17 [History Confirmed 10/14/17] PFSH Medical History Long-term use of high-risk medication (Chronic) 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) PND (post-nasal drip) (Chronic) Chronic obstructive pulmonary disease (Chronic) Coronary atherosclerosis of [place] coronary artery (Chronic) HLD (hyperlipidemia) (Chronic) HTN (hypertension) (Chronic) Personal history of transient ischemic attack (TIA) 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 (Chronic) CAD (coronary artery disease) (Chronic) Hypokalemia (Acute) Metabolic alkalosis with respiratory acidosis (Chronic) On home O2 (Chronic) History of MT (myocardial infarction) (Chronic) Acute blood loss anemia [...] pain, nose bleed, headache(s), mouth pain, nasal congestion, sinus pain, sinus pressure, sore throat or other Cardio Cardiovascular: Negative chest pain, chest pain at rest, chest pain with activity, irregular heart rhythm, edema, shortness of breath when lying down, palpitations, murmur or other Resp Respiratory: Positive as per HPI, shortness of breath shortness of breath: Positive with activity and cough cough: Positive productive color: Positive clear, white and yellow; negative pain with cough, [...] respiratory distress, well developed, well nourished, frail appearing, smells of smoke, appears older than stated age and wearing supplemental oxygen Tobacco stained fingernails and oxygen tubing Head Head: Positive normocephalic and atraumatic; negative cyanosis of lips/distal nose, frontal sinus tenderness or maxillary sinus tenderness Eyes Eye: Positive clear conjunctiva; negative nystagmus, scleral abnormality or cataract present Ears Ear: Positive hearing normal and external ears normal; negative hard of hearing Nose Nose: Positive external nose normal, septum normal and no nasal discharge; negative epistaxis or nasal polyp Mouth Mouth: Positive post nasal drip, oral mucosae normal, no lesions, dentures [...] sounds; negative distended, ascites or epigastric tenderness Genitourinary: Positive deferred Musc Musculoskeletal: Positive in a wheelchair; negative kyphosis or scoliosis Skin Pulmonary Skin Exam: Positive intact and dermal atrophy; negative rash, lesion, ulcers or erythema Pulses Pulse: Yes radial pulses present Extremities Extremities: Yes capillary refill normal, Yes clubbing, No cyanosis, No edema Neuro Neurologic: Yes conversant, Yes no focal neuro deficits, Yes normal concentration, Yes understands questions, Yes cooperative, Yes normal cognition, Yes normal coordination Lymph Lymphatic: No lymphadenopathy Psych Appearance: Positive grossly normal Mental Status: Positive mental status grossly normal Mood: Positive congruent mood Affect: Positive normal affect Coding Level of Care Code Off vis,est,level 3 Diagnoses Stage 3 severe COPD by GOLD classification J44.9 Tobacco dependency F17.200 Congestive heart failure with left ventricular systolic dysfunction I50.20 MDS (myelodysplastic syndrome) D46.9 11/11/17 1559 <Electronically signed by Sincere Lauren MD> Date Sincere Lauren MD Cosigner Signature: Date (if applicable) CC: Priya Jimenez DO FOLLOW UP (RHEUMATOLOGY) Observed: 11/10/2017 Status: UNK Source: [place] 11:14 PM [facility] Chief Complaint follow up office visit, History of Present Illness 82 year old woman with systemic lupus erythematosus, osteoarthritis and severe lung disease here for follow-up. She stated that she has been doing okay. Her hemoglobin is 13.1. She is noting pain in her knees and elbows has had edema in her ankles. She is stiff in the morning for one to 2 hours. She thinks that her fingers and knees are red. She denied joint swelling or warmth. On closer questioning s he may not actually be having erythema of the joints and may be having more symptoms related to Raynaud's. She stated her Raynaud's has been active. She reported that her lungs have not been doing well and she is now on 3.5 L of oxygen chronically. She denied much cough but stated she is always short of breath. She denied chest pain. She denied recent infections. She was last seen by ophthalmology 6 months ago. She is now diagnosed with congestive heart failure. She denies fever, chills, night sweats, weight loss, lymphadenopathy. H er appetite has been decreased. Her energy is up and down. She is noting dry mouth but denied dry eyes. She denied oral or nasal ulcers. She denied abdominal pain, nausea, vomiting, diarrhea, blood in h er stools, dyspepsia, dysphagia. She has had constipation. She denied dysuria, hematuria. She is noting scaly rash above the left eyebrow. She denied headaches. She stated she is sleeping so-so. She con tinues to smoke one pack of cigarettes per day. All other systems were reviewed and were negative for complaint. Medical History, Family History, Social History unchanged from last visit except as noted above. 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.0) (I73.00) Systemic lupus erythematosus (710.0) (M32.9) Past Medical History History of myocardial infarction (412) (I25.2) Family History Family history of Crohn's disease (V18.59) (Z83.79) Family history of Alzheimer's disease (V17.2) (Z82.0) Family history of MT (myocardial infarction) (V17.3) (Z82.49) Social History Former smoker (V15.82) (Z87.891) History of tobacco use (V15.82) (Z87.891) No alcohol use Oxygen Allergies Bactrim oral candidisis; Updated By: Pina Mcmillan; 01/19/2017 1:58:13 PM Fosamax oral candidiasis; Updated By: Pina Mcmillan; 01/19/2017 1:58:13 PM Current Meds Hydroxychloroquine Sulfate 200 MG Oral Tablet; TAKE 1.5 TABLET Daily; Therapy: 24Feb2015 to (Evaluate:[id number]) Requested for: [id number]; Last Rx:[id number] Ordered Rx By: Pina Mcmillan; Dispense: 90 Days ; #:135 TAB; Refill: 1;For: Inflammatory arthritis, Systemic lupus erythematosus; LARRY = N; Verified Transmission to [place] [address]; Last Updated By: Naun Raines; 09/11/2017 1:34:20 PM AmLODIPine Besylate 2.5 MG Oral Tablet; Take 1 tablet daily; Therapy: 13Aug2015 to (Evaluate:[id number]) Recorded Dispense: 30 Days ; #:30 Tablet; Refill: 0; LARRY = N; Record; Last Updated By: Pina Mcmillan; 12/17/2015 1:37:26 PM Aspirin 81 MG Oral Tablet Delayed Release; Therapy: (Recorded:[id number]) to Recorded Dispense: 0 Days ; #: Sufficient TBEC; Refill: 0; LARRY = N; Record; Last Updated By: Pina Mcmillan; 04/16/2015 2:10:35 PM Atorvastatin Calcium 80 MG Oral Tablet; TAKE 1 TABLET DAILY; Therapy: 24Feb2015 to Recorded Dispense: 0 Days ; #: Sufficient Tablet; Refill: 0; LARRY = N; Record; Last Updated By: Pina Mcmillan; 06/23/2016 11:57:24 AM Carvedilol 3.125 MG Oral Tablet; TAKE 1 TABLET TWICE DAILY WITH MEALS; Therapy: 24Feb2015 to Recorded Dispense: 0 Days ; #: Sufficient Tablet; Refill: 0; LARRY = N; Record; Last Updated By: Pina Mcmillan; 01/19/2017 1:56:51 PM Ferrex 150 150 MG Oral Capsule; Take 1 capsule twice daily; Therapy: 12May2014 to (Evaluate:[id number]) Recorded Rx By: MARYJANE TAVARES; Dispense: 30 Days ; #:60 Capsule; Refill: 0; LARRY = N; Record; Last Updated By: Pina Mcmillan; 12/17/2015 1:37:26 PM Furosemide 40 MG Oral Tablet; Take 1 tablet twice daily; Therapy: 24Feb2015 to (Evaluate:[id number]) Recorded Dispense: 30 Days ; #:60 Tablet; Refill: 0; LARRY = N; Record; Last Updated By: Pina Mcmillan; 12/17/2015 1:37:26 PM Lyrica 75 MG Oral Capsule; TAKE 1 CAPSULE 3 times daily; Therapy: (Recorded:[id number]) to Recorded Dispense: 0 Days ; #: Sufficient Capsule; Refill: 0; LARRY = N; Record; Last Updated By: Pina Mcmillan; 12/17/2015 1:37:26 PM Nitrostat 0.4 MG Sublingual Tablet Sublingual; Therapy: 03Oct2013 to Recorded Rx By: PINA ERNST; Dispense: 8 Days ; #:25 SUBL; Refill: 0; LARRY = N; Record; Last Updated By: Pina Mcimllan; 04/16/2015 2:10:35 PM Omeprazole 20 MG Oral Capsule Delayed Release; TAKE 1 CAPSULE Daily; Therapy: 24Feb2015 to (Evaluate:[id number]) Recorded Dispense: 30 Days ; #:30 CPDR; Refill: 0; LARRY = N; Record; Last Updated By: Pina Mcmillan; 12/17/2015 1:37:26 PM Oxycodone-Acetaminophen 5-325 MG Oral Tablet; TAKE 1 TABLET Every 8 hours PRN pain; Therapy: 26Feb2015 to Recorded Dispense: 0 Days ; #: Sufficient Tablet; Refill: 0; LARRY = N; Record; Last Updated By: Pina Mcmillan; 06/23/2016 11:57:24 AM Potassium Chloride Morena ER 20 MEQ Oral Tablet Extended Release; Take 1 tablet twice daily; Therapy: 24Feb2015 to (Evaluate:[id number]) Recorded Dispense: 30 Days ; #: Sufficient TBCR; Refill: 0; LARRY = N; Record; Last Updated By: Pina Mcmillan; 12/17/2015 1:37:26 PM RA Senna 8.6 MG Oral Tablet; Take 1 tablet daily; Therapy: [id number] to (Evaluate:43Pkk7278) Recorded Dispense: 30 Days ; #:30 Tablet; Refill: 0; LARRY = N; Record; Last Updated By: Pina Mcmillan; 12/17/2015 1:39:20 PM Symbicort 160-4.5 MCG/ACT Inhalation Aerosol; INHALE 2 PUFFS TWICE DAILY. RINSE MOUTH AFTER USE; Therapy: [id number] to Recorded Dispense: 0 Days ; #: Sufficient GM; Refill: 0; LARRY = N; Record; Last Updated By: Pina Mcmillan; 12/17/2015 1:37:26 PM Tudorza Pressair 400 MCG/ACT Inhalation Aerosol Powder Breath Activated; INHALE 1 PUFFS Twice daily; Therapy: 21Jan2015 to (Evaluate:20Feb2015) Recorded Dispense: 30 Days ; #: Sufficient AEPB; Refill: 0; LARRY = N; Record; Last Updated By: Pina Mcmillan; 12/17/2015 1:37:26 PM Vitamin D3 2000 UNIT Oral Capsule; TAKE 2 CAPSULE Daily; Therapy: (Recorded:[id number]) to Recorded Dispense: 0 Days ; #: Sufficient Capsule; Refill: 0; LARRY = N; Record; Last Updated By: Pina Mcmillan; 01/19/2017 1:56:51 PM Vitals Vital Signs Recorded: 14Sep2017 01:13PM Heart Rate66 Mqqsjgcegmq07 Smtehxnm173 Auyigghxk58 Height5 ft 2 in Xbdfrp340 lb BMI Qylirhepit58.59 BSA Calculated1.59 Physical Exam Well appearing woman in no acute distress sitting in a wheelchair. HEENT: NCAT, PERRL, EOMI. Oropharynx without erythema, exudate or ulcerations. Neck supple with full range of motion. Without lymphaden opathy. Lungs clear to auscultation bilaterally with decreased breath sounds throughout. Cardiac exam with regular rate and rhythm, normal S1, S2 rub or gallop. There was a 2/6 systolic murmur. Abdomen soft, non-tender without hepatosplenomegaly or masses. Bowel sounds normoactive. Skin without rashes. There was erythema and thickening over the left olecranon. There was no definite skin breakdown. Ext remities without clubbing. Feet were cool bilaterally with mild cyanosis. There was bilateral ankle edema with 2+ on the left and 1+ on the right. Musculoskeletal exam with limited range of motion in th e right hip. There was full range of motion in all other joints without erythema, warmth or swelling. Without active synovitis. Spine and sacroiliac joints non- tender to palpation with full range of mot ion. Neurologic exam with intact CN 2-12. Sensation intact to light touch. Motor 5/5 throughout except for bilateral lower extremities, especially hip flexors. Diagnoses/Problems Systemic lupus erythematosus (710.0) (M32.9) Inflammatory arthritis (714.9) (M19.90) Chronic osteoarthritis (715.90) (M19.90) Raynaud's phenomenon (secondary) (443.0) (I73.00) Long-term use of hydroxychloroquine (V58.69) (Z79.899) Provider Impressions 82 year old woman with systemic lupus erythematosus, osteoarthritis, inflammatory arthritis, Raynaud's, congestive heart failure and severe COPD currently without evidence of active inflammatory arthrit is. Based on her symptoms the lupus sounds like it is under good control. The following recommendations were given: 1) I reviewed the recent labs from [facility] through our patient portal. 2) She was encouraged to work on smoking cessation. 3) Some of the color changes in her fingers could be related to her continued tobacco use in the setting of known Raynaud's. Use of tobacco will make Raynaud's worse. 4) Continue hydroxychloroquine. 5) Follow up with rheumatology in 6 months. 6) I let her know that I will be leaving [facility] in October. Patient Discussion/Summary SLE, osteoarthritis, inflammatory arthritis, Raynaud's: 1) I do not see signs of active inflammatory arthritis. 2) The lupus sounds like it is under control. 3) I reviewed the recent labs from [facility] through our patient portal. 4) Work on smoking cessation. 5) Some of the color changes in your fingers could be related to your continued tobacco use in the setting of known Raynaud's. Use of tobacco will make Raynaud's worse. 6) Follow up with rheumatology in 6 months. TimeTime Stamp_UH: Time Spent With Patient: 25 minutes of which greater than 50 percent was spent counseling and or coordinating care. End of Encounter Meds AmLODIPine Besylate 2.5 MG Oral Tablet; Take 1 tablet daily; Therapy: 13Aug2015 to (Evaluate:[id number]) Recorded Aspirin 81 MG Oral Tablet Delayed Release; Therapy: (Recorded:[id number]) to Recorded Atorvastatin Calcium 80 MG Oral Tablet; TAKE 1 TABLET DAILY; Therapy: 24Feb2015 to Recorded Carvedilol 3.125 MG Oral Tablet; TAKE 1 TABLET TWICE DAILY WITH MEALS; Therapy: 24Feb2015 to Recorded Ferrex 150 150 MG Oral Capsule; Take 1 capsule twice daily; Therapy: 12May2014 to (Evaluate:30Whs9253) Recorded Furosemide 40 MG Oral Tablet; Take 1 tablet twice daily; Therapy: 24Feb2015 to (Evaluate:44Ygr3767) Recorded Hydroxychloroquine Sulfate 200 MG Oral Tablet; TAKE 1.5 TABLET Daily; Therapy: 24Feb2015 to (Evaluate:[id number]) Requested for: 11Sep2017; Last Rx:11Sep2017 Ordered Lyrica 75 MG Oral Capsule; TAKE 1 CAPSULE 3 times daily; Therapy: (Recorded:[id number]) to Recorded Nitrostat 0.4 MG Sublingual Tablet Sublingual (Nitroglycerin); Therapy: 03Oct2013 to Recorded Omeprazole 20 MG Oral Capsule Delayed Release; TAKE 1 CAPSULE Daily; Therapy: 24Feb2015 to (Evaluate:79Ebn9394) Recorded Oxycodone-Acetaminophen 5-325 MG Oral Tablet; TAKE 1 TABLET Every 8 hours PRN pain; Therapy: 26Feb2015 to Recorded Potassium Chloride Morena ER 20 MEQ Oral Tablet Extended Release; Take 1 tablet twice daily; Therapy: 24Feb2015 to (Evaluate:40Xly7131) Recorded RA Senna 8.6 MG Oral Tablet; Take 1 tablet daily; Therapy: 01Aug2015 to (Evaluate:38Pwp7123) Recorded Symbicort 160-4.5 MCG/ACT Inhalation Aerosol; INHALE 2 PUFFS TWICE DAILY. RINSE MOUTH AFTER USE; Therapy: 36Wha5608 to Recorded Tudorza Pressair 400 MCG/ACT Inhalation Aerosol Powder Breath Activated; INHALE 1 PUFFS Twice daily; Therapy: 32Nsh5303 to (Evaluate:20Feb2015) Recorded Vitamin D3 2000 UNIT Oral Capsule; TAKE 2 CAPSULE Daily; Therapy: (Recorded:19Gtb0535) to Recorded Signatures Electronically signed by : Pina Mcmillan MD, PhD; Nov 10 2017 11:14PM EST (Author) CBC W/DIFF, AUTOMATED Collected: 10/25/2017 Status: F Source: [place] 12:00 AM [facility] REPOSITORY TYPE CODE TESTS RESULT OUT OF RANGE REFERENCE UNITS LAB L100.1000 4.4-11.0 K/mm3 Normal WBC 9.6 LAB L100.1200 4.2-5.4 M/mm3 Normal RBC 4.60 LAB L100.1300 12.0-15.0 g/dl Normal HGB 13.3 LAB L100.1400 37-47 % Normal HCT 44.2 LAB L100.1500 81-99 fL Normal MCV 96.1 LAB L100.1600 27.0-32.0 pg Normal MCH 28.9 LAB L100.1700 32-36 g/gl Low MCHC 30.1 LAB L100.1810 11.6-14.6 % Normal RDW CV 13.3 LAB L100.1820 35.1-43.9 fl High RDW SD 45.6 LAB L100.1900 150-450 K/mm3 Normal PLT 229 LAB L100.2000 6.2-12.0 fl Normal MPV 10.8 LAB L100.2100 47-70 % High NEUT% 72.5 LAB L100.2200 19-41 % Low LY% 12.4 LAB L100.2300 0-10 % High MONO% 12.7 LAB L100.2400 0-5 % Normal EO% 1.4 LAB L100.2500 0-1 % Normal BASO% 0.4 LAB L100.2550 0.0-0.9 % Normal IM GRAN % 0.600 Result Comment: IG% - Immature Granulocytes (promyelocytes, myelocytes and metamyelocytes) > 1% indicates that a LEFT SHIFT is Present. LAB L100.2620 2.0-7.7 X10 3/uL Normal Absolute Neut 7.0 LAB L100.2720 0.83-4.51 X10 3/ul Normal Absolute Lymph 1.19 Performed By: #### L100.0100 #### [facility] [address] [place], [address] VITAMIN B12 Collected: 10/25/2017 Status: F Source: [place] 12:00 AM [facility] REPOSITORY TYPE CODE TESTS RESULT OUT OF RANGE REFERENCE UNITS LAB L503.0105 211-911 pg/mL Normal Vitamin B12 627 Performed By: #### L503.0105 #### [facility] [address] [place], [place], [address] MICROALB:CREAT Collected: 10/25/2017 Status: F Source: [place] RATIO,RANDOM UR 12:00 AM [facility] REPOSITORY TYPE CODE TESTS RESULT OUT OF RANGE REFERENCE UNITS LAB L501.1200 NO RANGE EST. mg/dL Normal UR CREAT 70.40 LAB L502.0500 NO RANGE EST. mg/L Normal 27.3 MICROALBUMIN ,UR LAB L502.0600 <30 mg/g CRE mg/g CRE High 38.8 MALB:CREAT Performed By: #### L502.0250 #### [facility] [address] [facility] [address] [place], [place], [address] COMPREHENSIVE METABOLIC Collected: 10/25/2017 Status: F Source: [place] PROFIL 12:00 AM [facility] REPOSITORY TYPE CODE TESTS RESULT OUT OF RANGE REFERENCE UNITS LAB L501.0100 74-106 mg/dL Normal GLU 88 Result Comment: Please note revised GLUCOSE reference range effective 2017. LAB L501.1000 7-18 mg/dL High BUN 20 LAB L501.1100 0.55-1.02 mg/dL Normal CREAT,SERUM 0.76 Result Comment: The validity of the calculated GFR AND GFRAA in patients over 70 years has not been determined. Clinical correlation is essential. LAB L501.1110 >60 mL/min Normal EST GFR 78 Result Comment: Non- GFR Calc LAB L501.1115 >60 mL/min Normal EST GFR - AA 95 Result Comment: GFR Calc LAB L501.1300 10-20 RATIO High BUN/CRE 26.5 LAB L501.1500 6.4-8.2 g/dL T Normal PROT 7.1 LAB L501.1800 3.2-5.0 g/dL Normal ALB 3.5 LAB L501.1950 2.2-4.2 g/dL Normal GLOB 3.6 LAB L501.2000 0.9-2.4 RATIO Normal A/G 1.0 LAB L501.2200 8.5-10.1 mg/dL CA Normal 8.9 LAB L501.4100 15-37 U/L Normal AST 30 LAB L501.4305 45-117 U/L Normal ALK P 68 LAB L501.4405 13-56 U/L Normal ALT 25 LAB L501.4600 0.20-1.00 mg/dL T Normal BILI 0.30 LAB L501.5300 136-145 mmol/L NA Normal 138 LAB L501.5600 3.5-5.1 mmol/L Low K 3.2 LAB L501.5900 98-107 mmol/L Low CL 90 LAB L501.6100 21.0-32.0 mmol/L High CO2 43.0 LAB L501.6200 5-15 Normal GAP 5 Performed By: #### L500.4050, L500.4100, L501.9520 #### [facility] [address] [place], [address] LIPID PROFILE Collected: 10/25/2017 Status: F Source: [place] F[place]Y 12:00 AM [facility] REPOSITORY TYPE CODE TESTS RESULT OUT OF RANGE REFERENCE UNITS LAB L501.4900 200 mg/dL Normal CHOL 145 Result Comment: <200 mg/dL Desirable 200-240 mg/dL Borderline >240 mg/dL High Risk LAB L501.5000 mg/dL Normal TRIG 60 Result Comment: The drugs N-Acetylcysteine and Metamizole may falsely depress this assay. Serum Triglycerides Reference Interval Normal <150 mg/dL Borderline high 150 - 199 mg/dL High 200 - 499 mg/dL Very High > or = 500 mg/dL LAB L501.6400 mg/dL Normal HDL 72 Result Comment: The drugs N-Acetylcysteine and Metamizole may falsely depress this assay. Reference Range HDL <40 mg/dL Low HDL Cholesterol HDL >or= 60 mg/dL High HDL Cholesterol LAB L501.6500 0-130 mg/dL Normal LDL 61 LAB L501.6600 5-40 mg/dL Normal VLDL 12 Performed By: #### L500.4050, L500.4100, L501.9520 #### [facility] [address] [place], [address] THYROID STIM HORMONE Collected: 10/25/2017 Status: F Source: [place] (TSH) 12:00 AM [facility] REPOSITORY TYPE CODE TESTS RESULT OUT OF RANGE REFERENCE UNITS LAB L501.9520 0.358-3.74 uIU/mL Normal TSH 2.95 Performed By: #### L500.4050, L500.4100, L501.9520 #### [facility] [address] [place], [address] URINALYSIS, COMPLETE Collected: 10/25/2017 Status: F Source: [place] 12:00 AM [facility] REPOSITORY Order Comment: How was Urine Obtained? CLEAN CATCH TYPE CODE TESTS RESULT OUT OF RANGE REFERENCE UNITS LAB L400.3000 Yellow COLOR Normal Yellow LAB L400.3050 Clear Normal CLARITY Clear LAB L400.3200 Normal mg/dl Normal GLUCOSE, UR Normal LAB L400.3300 Negative mg/dL Normal BILIRUBIN URINE Negative LAB L400.3400 Negative mg/dl Normal KETONE UR Negative LAB L400.3465 1.002-1.030 Normal SP.GR. DIPSTX 1.015 LAB L400.3550 5.0 - 8.0 pH UR Normal 6.0 LAB L400.3600 Negative mg/dl PROT Normal DIPSTX Negative LAB L400.3700 Normal mg/dl Normal UROBILI Normal LAB L400.3750 Negative Normal NITRITE UR Negative LAB L400.3780 Negative /ul Normal OCCULT BLOOD-UR Negative LAB L400.3800 Negative /ul High LEUK 25 ESTERASE LAB L400.4050 0-5 /hpf WBC Normal 0-5 SEEN LAB L400.4100 0-5 /hpf 0 Normal RBC-UA SEEN LAB L400.4150 5-10 /hpf SQUAM Normal EPI 0-5 SEEN LAB L400.4300 None Seen /hpf 1+ Normal BACTERIA LAB L400.4350 <or=2+ /hpf 0 Normal MUCUS, URINE SEEN LAB L400.4400 0-5 /lpf Normal HYALINE CAST 0-5 SEEN Performed By: #### L400.0001 #### [facility] [address] [place], [address] MISCELLANEOUS LAB Collected: 10/25/2017 Status: F Source: [place] PROCEDURE 12:00 AM [facility] REPOSITORY Order Comment: Test(s) Ordered: [id number] calcifediol room temp/ serum or plas TYPE CODE TESTS RESULT OUT OF RANGE REFERENCE UNITS LAB L801.1541 Normal [facility] Result Comment: TEST RESULT LIMITS Calcitriol (1,25 di-OH Vit D) 42.8 pg/mL 19.9 - 79.3 TESTING PERFORMED AT [facility]. ORIGINAL REPORT ON FILE IN LAB CONTAINS ADDITIONAL TEST SITE INFORMATION. Performed By: #### L801.1541 #### [facility] [address] [place], [address] ONCOLOGY VISIT REPORT Observed: 10/14/2017 Status: F Source: [place] 3:18 PM [facility] REPOSITORY [facility] [place] [address] OFFICE VISIT Date of Service: 10/14/17 1513 MR#: [id number] Acct: [id number] Name: KILEY DREW Rep #: [id number] : 1935 From: Ronan Montenegro MD Age/Sex: 82/F Location: OMD Status: Signed Subjective - Date of Service Date of Service:: 10/14/17 - Chief Complaint F/u for MDS. - History of Present Illness Ms. Kiley Drew is a pleasant 82y.o.woman was found to have severe anemia in November 2015. 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 Flow cytometry revealed no significant immunophenotypic abnormality, normal female karyotype observed. Blasts 2%. She is currently on observation, comes in for follow up. She feels well. - Past Medical/Social History Past Medical History Past Medical History: Anemia,Blood transfusion,Cataracts,Chronic bronchitis,Congestive heart failure,COPD,Hearing problems,Heart disease,Hyperlipidemia, Hypertension,Osteopenia,Pneumonia,Stroke,Vision problems,Neuropathy,IBS,Carpal tunnel syndrome, Fatigue,Diarrhea,Peripheral neuropathy Other Past Medical History: LUPOS SLE Cancer: Skin cancer Past Surgical History Surgical: Carpal tunnel,Hysterectomy Other Surgical History: FOOT SURGERY Family History Paternal Past Medical History: Alzheimer's disease,Heart disease Maternal Past Medical History: Crohn's disease Social History Smoking Status Current every day smoker Review of Systems Constitutional:: Denies: Fever, Sweats, Weight loss, Appetite change, Chills Cardiovascular:: Denies: Chest pain, Palpitations, Dyspnea on exertion, Orthopnea, PND, Shortness of breath Respiratory: Denies: Cough, Hemoptysis, Shortness of Breath, Wheezing [...] - R lower extremity shorter than L.. Negative for: Cyanosis, Edema Lymphatics:: Negative for: Cervical lymphadenopathy, Supraclavicular lymphadenopathy, Axillary lymphadenopathy Laboratory Data: Laboratory Tests WBC 7.4 Hgb 12.2 Hct 40.2 Plt Count 249 Absolute Neuts (auto) 5.6 Assessment and Plan MDS-RARS, Hgb is about 12. IPSS-1. Clinically stable, asymptomatic. Plan is to continue observation. RTC 3 months with CBC/CMP/iron studies. Medications: Prescriptions This Visit Medication Instructions Recorded Cyanocobalamin [Vitamin B12] 1,000 mcg IM Q30D 10/14/17 Primary Care Provider: Referring Provider: - Problem List (1) MDS (myelodysplastic syndrome) Status: Chronic Code Visit Office Visits / Consults: [id number] OV L3 Est 10/14/17 1518 <Electronically signed by Ronan Montenegro MD> Date Ronan Montenegro MD Cosigner Signature: Date (if applicable) CC: CBC W/DIFF, AUTOMATED Collected: 10/06/2017 Status: F Source: [place] 9:40 AM [facility] REPOSITORY Order Comment: Reason for Laboratory Test . TYPE CODE TESTS RESULT OUT OF RANGE REFERENCE UNITS LAB L100.1000 4.4-11.0 K/mm3 Normal WBC 7.4 LAB L100.1200 4.2-5.4 M/mm3 Normal RBC 4.30 LAB L100.1300 12.0-15.0 g/dl Normal HGB 12.2 LAB L100.1400 37-47 % Normal HCT 40.2 LAB L100.1500 81-99 fL Normal MCV 93.5 LAB L100.1600 27.0-32.0 pg Normal MCH 28.4 LAB L100.1700 32-36 g/gl Low MCHC 30.3 LAB L100.1810 11.6-14.6 % Normal RDW CV 13.3 LAB L100.1820 35.1-43.9 fl High RDW SD 45.4 LAB L100.1900 150-450 K/mm3 Normal PLT 249 LAB L100.2000 6.2-12.0 fl Normal MPV 10.2 LAB L100.2100 47-70 % High NEUT% 74.8 LAB L100.2200 19-41 % Low LY% 11.9 LAB L100.2300 0-10 % High MONO% 10.8 LAB L100.2400 0-5 % Normal EO% 1.8 LAB L100.2500 0-1 % Normal BASO% 0.3 LAB L100.2550 0.0-0.9 % Normal IM GRAN % 0.400 Result Comment: IG% - Immature Granulocytes (promyelocytes, myelocytes and metamyelocytes) > 1% indicates that a LEFT SHIFT is Present. LAB L100.2620 2.0-7.7 X10 3/uL Normal Absolute Neut 5.6 LAB L100.2720 0.83-4.51 X10 3/ul Normal Absolute Lymph 0.88 Performed By: #### L100.0100, L500.4050, L503.6030, L503.6550 #### [facility] [address] [place], [place], [address] COMPREHENSIVE METABOLIC Collected: 10/06/2017 Status: F Source: [facility] 9:40 AM [facility] REPOSITORY Order Comment: Reason for Laboratory Test . TYPE CODE TESTS RESULT OUT OF RANGE REFERENCE UNITS LAB L501.0100 74-106 mg/dL High GLU 110 Result Comment: Fasting Glucose result from 100 to 125 mg/dL suggests IMPAIRED HOMEOSTASIS per A.D.A. criteria. Please note revised GLUCOSE reference range effective 2017. LAB L501.1000 7-18 mg/dL Normal BUN 17 LAB L501.1100 0.55-1.02 mg/dL Normal CREAT,SERUM 0.75 Result Comment: The validity of the calculated GFR AND GFRAA in patients over 70 years has not been determined. Clinical correlation is essential. LAB L501.1110 >60 mL/min Normal EST GFR 78 Result Comment: Non- GFR Calc LAB L501.1115 >60 mL/min Normal EST GFR - AA 95 Result Comment: GFR Calc LAB L501.1300 10-20 RATIO High BUN/CRE 22.5 LAB L501.1500 6.4-8.2 g/dL T Normal PROT 6.9 LAB L501.1800 3.2-5.0 g/dL Normal ALB 3.3 LAB L501.1950 2.2-4.2 g/dL Normal GLOB 3.6 LAB L501.2000 0.9-2.4 RATIO Normal A/G 0.9 LAB L501.2200 8.5-10.1 mg/dL CA Normal 8.8 LAB L501.4100 15-37 U/L Normal AST 30 LAB L501.4305 45-117 U/L Normal ALK P 69 LAB L501.4405 13-56 U/L Normal ALT 24 LAB L501.4600 0.20-1.00 mg/dL T Normal BILI 0.40 LAB L501.5300 136-145 mmol/L NA Normal 137 LAB L501.5600 3.5-5.1 mmol/L Low K 3.3 LAB L501.5900 98-107 mmol/L Low CL 92 LAB L501.6100 21.0-32.0 mmol/L High CO2 42.0 LAB L501.6200 5-15 Low GAP 3 Performed By: #### L100.0100, L500.4050, L503.6030, L503.6550 #### [facility] [address] [facility] [place], [place], [id number] IRON+IRON BINDING Collected: 10/06/2017 Status: F Source: [facility] 9:40 AM [facility] REPOSITORY Order Comment: Reason for Laboratory Test . TYPE CODE TESTS RESULT OUT OF RANGE REFERENCE UNITS LAB L503.6075 250-450 ug/dL TIBC Normal 323 LAB L503.6150 50-170 ug/dL IRON Normal 61 LAB L503.6250 15.0-55.0 % IRON Normal SATURATION 18.9 Performed By: #### L100.0100, L500.4050, L503.6030, L503.6550 #### [facility] [address] [place], [place], [id number] FERRITIN Collected: 10/06/2017 Status: F Source: [place] 9:40 AM [facility] REPOSITORY Order Comment: Reason for Laboratory Test . TYPE CODE TESTS RESULT OUT OF REFERENCE UNITS RANGE LAB L503.6550 8-252 ng/mL High FERRITIN 277 Performed By: #### L100.0100, L500.4050, L503.6030, L503.6550 #### [facility] [address] [place], [address] VITAMIN B12 Collected: 08/09/2017 Status: F Source: [place] 12:00 AM [facility] REPOSITORY TYPE CODE TESTS RESULT OUT OF RANGE REFERENCE UNITS LAB L503.0105 211-911 pg/mL Normal Vitamin B12 851 Performed By: #### L503.0105 #### [facility] [address] [place], [address] CBC W/DIFF, AUTOMATED Collected: 08/09/2017 Status: F Source: [place] 12:00 AM [facility] REPOSITORY TYPE CODE TESTS RESULT OUT OF RANGE REFERENCE UNITS LAB L100.1000 4.4-11.0 K/mm3 Normal WBC 9.0 LAB L100.1200 4.2-5.4 M/mm3 Normal RBC 4.66 LAB L100.1300 12.0-15.0 g/dl Normal HGB 13.1 LAB L100.1400 37-47 % Normal HCT 44.0 LAB L100.1500 81-99 fL Normal MCV 94.4 LAB L100.1600 27.0-32.0 pg Normal MCH 28.1 LAB L100.1700 32-36 g/gl Low MCHC 29.8 LAB L100.1810 11.6-14.6 % Normal RDW CV 13.3 LAB L100.1820 35.1-43.9 fl High RDW SD 45.9 LAB L100.1900 150-450 K/mm3 Normal PLT 231 LAB L100.2000 6.2-12.0 fl Normal MPV 10.3 LAB L100.2100 47-70 % Normal NEUT% 69.6 LAB L100.2200 19-41 % Low LY% 13.0 LAB L100.2300 0-10 % High MONO% 14.9 LAB L100.2400 0-5 % Normal EO% 2.0 LAB L100.2500 0-1 % Normal BASO% 0.3 LAB L100.2550 0.0-0.9 % Normal IM GRAN % 0.200 Result Comment: IG% - Immature Granulocytes (promyelocytes, myelocytes and metamyelocytes) > 1% indicates that a LEFT SHIFT is Present. LAB L100.2620 2.0-7.7 X10 3/uL Normal Absolute Neut 6.2 LAB L100.2720 0.83-4.51 X10 3/ul Normal Absolute Lymph 1.16 Performed By: #### L100.0100 #### [facility] [address] [place], [address] PULMONARY VISIT REPORT Observed: 07/16/2017 Status: F Source: [place] 10:25 AM [facility] REPOSITORY [facility] [address] [place] [address] OFFICE VISIT Date of Service: 07/14/17 MR#: [id number] Acct: [id number] Name: KILEY DREW Rep #: [id number] : 1935 Provider: Aida Lindo Age/Sex: 81/F Location: [facility] [place] Status: Signed Assessment AND Plan 1. Stage 3 severe COPD by GOLD classification J44.9 Status Chronic Plan Continue triple therapy maintenance. He does not appear to be in exacerbation of her COPD today. She does not feel that she would be able to participate in a complete pulmonary function test, I do agree. Follow-up with Dr. Lauren in 3 months. She has been encouraged to contact the office if she develops any signs of a COPD exacerbation prior to that follow-up. She conveys understanding. 2. Chronic respiratory failure with hypoxia and hypercapnia J96.11; J96.12 Status Chronic Plan Continue to use supplemental oxygen as needed to maintain saturations 89-92%. Follow-up with Dr. Lauren in 3 months. 3. Tobacco dependence F17.200 Status Chronic Plan 7 minute conversation regarding smoking cessation. The patient would like to try nicotine patches. These have been provided to her. 1 month supply of step 3 order, she needs to call the office when that runs out and she needs to step down to step 2. Follow-up Dr. Lauren in 3 months. Plan Detail Other Medications New: albuterol sulfate HFA 90 mcg/actuation (Vento2 puffs Inhalation Q4H PRN shortness of galdino moni HFA) th or wheezing Changed: Refilled: Follow Up 3 Months (BWA) HPI 3 M FU: Chief Complaint: Shortness of breath HPI Comments Details: This patient presents to the office today to follow- up on her very severe COPD and her [...] She is using her Ventolin rescue inhaler 2-4 times daily. She does find that it gives her temporary relief of her shortness of breath. Currently, she denies any hemoptysis. He has occasional wheezing and chest tightness, which is relieved by her rescue inhaler. She denies any chest pain or palpitations. She denies any fever, chills or body aches. She does report having some occasional thick clear to pale yellow sputum She has not tried any other [id number] medications. . She reports that she does have Mucinex at home but has not tried it to loosen the secretions. He previously attended pulmonary rehab. She would like to be considered for pulmonary rehab again. Unfortunately, she continues to smoke 1 pack of cigarettes daily. Currently requires 2-2.5 L/min of continuous nasal cannula oxygen to maintain [...] 3.125 mg PO BID 07/06/15 [History Confirmed 07/14/17] Furosemide [Lasix] 40 mg PO BID 07/06/15 [History Confirmed 07/14/17] Hydroxychloroquine [Plaquenil] 300 mg PO DAILY 07/06/15 [History Confirmed 07/14/17] Nitroglycerin [Nitrostat] 0.4 mg SUBLINGUAL Q5M PRN [...] 07/14/17] Amlodipine [Norvasc] 2.5 mg PO DAILY #30 tab 12/04/15 [Rx Confirmed 07/14/17] Ascorbic Acid [Vitamin C] 500 mg PO BID #60 tab 12/04/15 [Rx Confirmed 07/14/17] Nicotine [Nicoderm Cq] 21 mg TRANSDERM. DAILY #28 patch 12/04/15 [Rx Confirmed 07/14/17] guaifenesin 400 mg tablet 400 mg PO Q4H PRN #30 tab 04/09/17 [Rx Confirmed 07/14/17] cholecalciferol (vitamin D3) 4,000 unit capsule 4,000 unit PO QDAY 07/01/17 [History Confirmed 07/14/17] polysaccharide iron complex 150 mg iron capsule 150 mg PO TID cap 07/05/17 [History Confirmed 07/14/17] aclidinium bromide 400 mcg/actuation breath activated powder inhaler 1 inh INHALATION BID #1 ea 07/14/17 [Rx Confirmed 07/14/17] albuterol sulfate HFA 90 mcg/actuation aerosol inhaler 2 puff INHALATION Q4H PRN #18 g 07/14/17 [Rx Confirmed 07/14/17] budesonide-formoterol HFA 160 mcg-4.5 mcg/actuation aerosol inhaler 2 puff INHALATION BID #10.2 g 07/14/17 [Rx Confirmed 07/14/17] nicotine 21 mg/24 hr daily transdermal patch 21 mg TRANSDERMAL ONCE #30 patch 07/14/17 [Rx Confirmed 07/14/17] [facility] Medical History Long-term use of high-risk medication (Chronic) 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) PND (post-nasal drip) (Chronic) Chronic obstructive pulmonary disease (Chronic) Coronary atherosclerosis of [place] coronary artery (Chronic) HLD (hyperlipidemia) (Chronic) HTN (hypertension) (Chronic) Personal history of transient ischemic attack (TIA) 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 (Chronic) CAD (coronary artery disease) (Chronic) Hypokalemia (Acute) Metabolic alkalosis with respiratory acidosis (Chronic) On home O2 (Chronic) History of MT (myocardial infarction) (Chronic) Acute blood loss anemia [...] pain, nose bleed, headache(s), mouth pain, nasal congestion, nasal discharge, sinus pain, sinus pressure, sore throat or other Cardio Cardiovascular: Positive edema Location: lower extremity; negative chest pain, chest pain at rest, chest pain with activity, irregular heart rhythm, shortness of breath when lying down, palpitations, murmur or other Resp Respiratory: Positive as per HPI, shortness of breath shortness of breath: Positive with activity and cough cough: Positive productive (not all [...] cooperative, in no acute respiratory distress, well nourished, good hygiene, frail appearing, wearing supplemental oxygen and dyspenic Head Head: Positive normocephalic and atraumatic; negative cyanosis of lips/distal nose Eyes Eye: Positive clear conjunctiva and nystagmus; negative scleral abnormality Ears Ear: Positive hard of hearing and external ears normal; negative hearing normal Nose Nose: Positive external nose normal and [...] to auscultation, normal expiratory time and normal respiratory effort; negative wheezes, wheeze present on forced exhalation, rhonchi, rales or dullness to percussion Cardio Cardiac: Positive regular rate, regular rhythm, S1 normal and S2 normal; negative murmur GI GI: Positive normal to inspection and normal bowel sounds; negative distended Genitourinary: Positive deferred Musc Musculoskeletal: Positive ROM normal and in a wheelchair; negative kyphosis or scoliosis Skin Pulmonary Skin Exam: Positive intact; negative rash, lesion, ulcers, erythema, scaly or dermal atrophy Pulses Pulse: Yes pulses normal x4 extremities Extremities Extremities: Yes edema Location: lower extremity location: Bilateral pitting trace, Yes capillary refill normal, Yes clubbing, No cyanosis, No stasis dermatitis Neuro Neurologic: Yes conversant, Yes no focal neuro deficits, Yes cooperative, Yes normal cognition, Yes normal coordination, Yes normal concentration, Yes understands questions Lymph Lymphatic: No lymphadenopathy, No tenderness, No cervical adenopathy, No axillary adenopathy Psych Appearance: Positive grossly normal, eye contact and well kempt Mental Status: Positive mental status grossly normal Mood: Positive congruent mood Affect: Positive normal affect Coding Level of Care Code Off vis,est,level 3 Diagnoses Stage 3 severe COPD by GOLD classification J44.9 Chronic respiratory failure with hypoxia and hypercapnia J96.11; J96.12 Tobacco dependence F17.200 07/16/17 1025 <Electronically signed by Aida PENNINGTON> Date Aida HINKLEC Cosigner Signature: Date (if applicable) CC: Priya Jimenez DO CARDIOLOGY VISIT Observed: 07/13/2017 Status: F Source: [facility] REPORT 12:04 PM [facility] [address] [place] [address] OFFICE VISIT Date of Service: 07/05/17 MR#: [id number] Acct: [id number] Name: KILEY DREW Rep #: [id number] : 1935 Provider: Lianne Tovar Age/Sex: 81/F Location: [facility] Status: Signed HPI HPI Details: KILEY DREW, is a 81 F who presents to the office today for a cardiovascular follow-up. She has a history of coronary artery disease with stenting to her RCA in 2013 following a myocardial infarction. She also at that time was noted to have papillary muscle rupture, severe mitral regurgitation, during that event she needed to be intubated and placed on the balloon pump and Levophed. She does have a history of hypertension, hyperlipidemia, myelodysplastic syndrome. Pt questions about myocardial bridging of LAD From a [...] or syncope. She does occasionally have lower extremity edema. She does not have any symptoms of claudication. Intake Vital Signs07/05/17 Height 5 ft 2 in 07/05/17 Weight: 131 lb 07/05/17 Body Mass Index (BMI) 23.9 07/05/17 Blood Pressure 110/70 07/05/17 Pulse Rate 96 Intake Visit Reasons: 6 M FU Allergies alendronate sodium [From Fosamax] Adverse Reaction (Severe, Verified 07/05/17 13:58) gastroenteritis sulfamethoxazole [From Bactrim] Adverse Reaction (Severe, Verified 07/05/17 13:58) thrush trimethoprim [From Bactrim] Adverse Reaction (Severe, Verified 07/05/17 13:58) thrush Medications Atorvastatin Calcium [Lipitor] 80 mg PO QHS 07/06/15 [History Confirmed 07/05/17] Carvedilol [Coreg (Beta Hue)] 3.125 mg PO BID 07/06/15 [History Confirmed 07/05/17] Furosemide [Lasix] 40 mg PO BID 07/06/15 [History Confirmed 07/05/17] Hydroxychloroquine [Plaquenil] 300 mg PO DAILY 07/06/15 [History Confirmed 07/05/17] Nitroglycerin [Nitrostat] 0.4 mg SUBLINGUAL Q5M PRN 07/06/15 [History Confirmed 07/05/17] Omeprazole [Prilosec] 20 mg PO DAILY 07/06/15 [History Confirmed 07/05/17] Oxycodone HCl/Acetaminophen [Percocet 5-325] 1 tab PO BID 07/06/15 [History Confirmed 07/05/17] Potassium Chloride [K-Dur] 20 meq PO BID 07/06/15 [History Confirmed 07/05/17] Pregabalin [Lyrica] 75 mg PO TID 07/06/15 [History Confirmed 07/05/17] Aclidinium Bath [Tudorza Pressair] 1 puff IH BID 08/23/15 [...] 12/04/15 [Rx Confirmed 07/05/17] guaifenesin 400 mg tablet 400 mg PO Q4H PRN #30 tab 04/09/17 [Rx Confirmed 07/05/17] budesonide-formoterol HFA 160 mcg-4.5 mcg/actuation aerosol inhaler 2 puff INHALATION BID #10.2 g 05/26/17 [Rx Confirmed 07/05/17] cholecalciferol (vitamin D3) 4,000 unit capsule 4,000 unit PO QDAY 07/01/17 [History Confirmed 07/05/17] polysaccharide iron complex 150 mg iron capsule 150 mg PO TID cap 07/05/17 [History] Ejection fraction %: 50 to 54 PFSH Medical History Long-term use of high-risk medication (Chronic) 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) PND (post-nasal drip) (Chronic) Chronic obstructive pulmonary disease (Chronic) Coronary atherosclerosis of [place] coronary artery (Chronic) HLD (hyperlipidemia) (Chronic) HTN (hypertension) (Chronic) Personal history of transient ischemic attack (TIA) 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 (Chronic) CAD (coronary artery disease) (Chronic) Hypokalemia (Acute) Metabolic alkalosis with respiratory acidosis (Chronic) On home O2 (Chronic) History of MT (myocardial infarction) (Chronic) Acute blood loss anemia [...] Nosebleed/epistaxis Cardio Chest Pain: No Palpitations: No Edema: Bilateral Muscle aches with walking: None Resp Respiratory: Positive for SOB with activity; negative for SOB at rest, SOB orthopnea\SOB lying down or Cough GI GI: Negative nausea, vomiting, heartburn or vomiting blood/hematemesis : Negative for hematuria Musc Musc: Positive for muscle aches/ myalgia and muscle weakness Neuro Neuro: Negative for weakness, headache(s), dizziness, near syncope, syncope, lightheadedness or orthostatic symptoms Anibal Hematologic/Lymphatic: Negative for easy bleeding Endo Endo: Negative for fatigue Cardiology Exam Const Appearance: cooperative and no acute distress Nutritional Appearance: thin Orientation: alert, awake and oriented x3 Head Head: normocephalic and atraumatic Mouth: moist mucous membranes Eyes General: appearance normal, both eyes and all related structures Conjunctivae: conjunctivae normal Pupils: PERRL EOM: EOM intact bilaterally Neck Neck: normal visual inspection, no lymphadenopathy and no JVD Carotids: Negative bruit Neck Mass: Negative Neck mass Chest Chest inspection: normal inspection of [...] Posterior Tibial Pulse, Left Posterior Tibial Pulse, Right Radial Pulse, Left Radial Pulse Lower Extremity Edema: +1: Bilateral Psych Psychological: normal affect Supplemental Info Echocardiogram in 2016 demonstrates an ejection fraction of 50%. Mild mitral insufficiency. Mild to moderate tricuspid insufficiency. Mild aortic insufficiency. Pharmacologic nuclear stress test in 2015 was negative for ischemia. Assessment AND Plan 1. Atherosclerosis of [place] coronary artery of [place] heart without angina pectoris I25.10 Plan - LISA La Stable, from a cardiac standpoint patient does not have any symptoms of angina. We recommend that they continue with current aggressive medical management and risk factor modification. 2. Essential hypertension I10 Plan - LISA La Blood pressure is well controlled on current medications, we do not recommend any changes at this time. 3. Pure hypercholesterolemia E78.00; E78.0 Plan - LISA La Lipids are obtained by her primary care doctor. Have requested that she bring a copy of labs for our office. 4. Tobacco dependency F17.200 Plan - LISA La Strongly encouraged cessation however patient is interested in doing this at this time. Plan Detail Additional Comments - LISA La The above patient was discussed with Dr. Barboza, he agrees with plan of care. Thank you for allowing us to participate in patient's plan of care, if you have any questions please do not hesitate to call. This note was generated using a voice recognition system and there may be incorrect words, spelling or punctuation errors that were not noted when reviewing the office note prior to saving. 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) [facility]05/17 [facility]- thank you) Coding Level of Care Code Off vis,est,level 3 Diagnoses Atherosclerosis of [place] coronary artery of [place] heart without angina pectoris I25.10 Coronary Disease-Associated Artery/Lesion type: [place] artery Essential hypertension I10 Hypertension type: essential hypertension Pure hypercholesterolemia E78.00; E78.0 Hyperlipidemia type: pure hypercholesterolemia Tobacco dependency F17.200 Coding Level of Care Code Off vis,est,level 3 Diagnoses Atherosclerosis of [place] coronary artery of [place] heart without angina pectoris I25.10 Coronary Disease-Associated Artery/Lesion type: [place] artery Essential hypertension I10 Hypertension type: essential hypertension Pure hypercholesterolemia E78.00; E78.0 Hyperlipidemia type: pure hypercholesterolemia Tobacco dependency F17.200 07/09/17 1701 <Electronically signed by Lianne GONZALEZ> Date Lianne GONZALEZ 07/13/17 1204<Electronically signed by Kaden Barboza MD> Cosigner Signature: Date (if applicable) Kaden Barboza MD CC: Priya Jimenez DO ONCOLOGY VISIT REPORT Observed: 07/07/2017 Status: F Source: [facility] 2:21 PM [facility] [address] [place] [id number] OFFICE VISIT Date of Service: 07/07/17 1417 MR#: [id number] Acct: [id number] Name: KILEY DREW Rep #: [id number] : 1935 From: Ronan Montenegro MD Age/Sex: 81/F Location: [facility] Status: Signed Subjective - Date of Service Date of Service:: 07/07/17 - Chief Complaint F/u for MDS. - History of Present Illness Ms. Kiley Drew is a pleasant 81y.o.woman was found to have severe anemia in November 2015. 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 Flow cytometry revealed no significant immunophenotypic abnormality, normal female karyotype observed. Blasts 2%. She is currently on observation. Comes in for follow up. She feels well. - Past Medical/Social History Past Medical History Past Medical History: Anemia,Blood transfusion,Cataracts,Chronic bronchitis,Congestive heart failure,COPD,Hearing problems,Heart disease,Hyperlipidemia, Hypertension,Osteopenia,Pneumonia,Stroke,Vision problems,Neuropathy,IBS,Carpal tunnel syndrome, Fatigue,Diarrhea,Peripheral neuropathy Other Past Medical History: LUPOS SLE Cancer: Skin cancer Past Surgical History Surgical: Carpal tunnel,Hysterectomy Other Surgical History: FOOT SURGERY Family History Paternal Past Medical History: Alzheimer's disease,Heart disease Maternal Past Medical History: Crohn's disease Social History Smoking Status Current every day smoker Review of Systems Constitutional:: Reports: - - on home O2. Denies: Fever, Sweats, Weight loss, Appetite change, Chills Cardiovascular:: Denies: Chest pain, Palpitations, Dyspnea on exertion, Orthopnea, PND, Shortness of breath Respiratory: Denies: Cough, Hemoptysis, Shortness of Breath, Wheezing [...] Ox 84 - Physical Exam General: Alert, Oriented x3, No apparent distress HEENT: Atraumatic, PERRLA, EOMI, Normocephalic Oropharynx:: Dry mucosa Neck:: Supple, Trachea midline. Negative for: JVD, bilateral Cardiac:: Regular rate, Regular rhythm, Normal S1, Normal S2. Negative for: Murmur Lungs: Clear to auscultation, Excusion symmetrical. Negative for: Rhonchi, Wheezes Laboratory Data: Laboratory Tests WBC 8.4 Cancelled Corrected WBC Cancelled RBC 4.62 Cancelled Hgb 13.1 Cancelled Hct 43.3 Cancelled Assessment and Plan MDS-RARS, Hgb is about 13. IPSS-1. Clinically stable, asymptomatic. Plan is to continue observation. RTC 3 months with CBC/CMP/iron studies. Primary Care Provider: Referring Provider: - Problem List (1) MDS (myelodysplastic syndrome) Status: Chronic Code Visit Office Visits / Consults: [id number] OV L3 Est 07/07/17 1421 <Electronically signed by Ronan Montenegro MD> Date Ronan Odell Signature: Date (if applicable) CC: CBC W/DIFF, AUTOMATED Collected: 07/07/2017 Status: F Source: [place] 1:33 PM [facility]POS[facility] TYPE CODE TESTS RESULT OUT OF RANGE REFERENCE UNITS LAB L100.1000 4.4-11.0 K/mm3 Normal WBC 8.4 LAB L100.1200 4.2-5.4 M/mm3 Normal RBC 4.62 LAB L100.1300 12.0-15.0 g/dl Normal HGB 13.1 LAB L100.1400 37-47 % Normal HCT 43.3 LAB L100.1500 81-99 fL Normal MCV 93.7 LAB L100.1600 27.0-32.0 pg Normal MCH 28.4 LAB L100.1700 32-36 g/gl Low MCHC 30.3 LAB L100.1810 11.6-14.6 % Normal RDW CV 13.1 LAB L100.1820 35.1-43.9 fl High RDW SD 45.0 LAB L100.1900 150-450 K/mm3 Normal PLT 229 LAB L100.2000 6.2-12.0 fl Normal MPV 9.9 LAB L100.2100 47-70 % High NEUT% 71.4 LAB L100.2200 19-41 % Low LY% 16.4 LAB L100.2300 0-10 % Normal MONO% 10.0 LAB L100.2400 0-5 % Normal EO% 1.3 LAB L100.2500 0-1 % Normal BASO% 0.4 LAB L100.2550 0.0-0.9 % Normal IM GRAN % 0.500 Result Comment: IG% - Immature Granulocytes (promyelocytes, myelocytes and metamyelocytes) > 1% indicates that a LEFT SHIFT is Present. LAB L100.2620 2.0-7.7 X10 3/uL Normal Absolute Neut 6.0 LAB L100.2720 0.83-4.51 X10 3/ul Normal Absolute Lymph 1.38 Performed By: #### L100.0100 #### [facility] [address] [place], [address] PULMONARY VISIT REPORT Observed: 06/08/2017 Status: F Source: [facility] 1:49 PM [facility] [address] [place] [address] OFFICE VISIT Date of Service: 06/08/17 MR#: [id number] Acct: [id number] Name: KILEY DREW Rep #: [id number] : 1935 Provider: Sincere Lauren MD Age/Sex: 81/F Location: [facility] Status: Signed Assessment AND Plan 1. Stage 3 severe COPD by GOLD classification J44.9 Plan Severe COPD by PFT criteria approximately 3 years ago. [...] function. Patient is on triple therapy at this time. Stressed the importance of compliance with supplemental oxygen to keep saturations greater than 90% at all times. Continue current therapy. Encourage smoking cessation. 2. PND (post-nasal drip) R09.82 Plan Patient has had some increased nasal congestion recently with a decrease in temperatures. No epistaxis has been reported. Patient was placed on a nasal steroid by her primary care physician. Patient states that the increased volume of cough appears similar to nasal secretions. This would reinforce the presence of postnasal drip. Appropriate use of nasal steroids were reviewed with the patient. Continue with current therapy 3. Chronic respiratory failure with hypoxia and hypercapnia J96.11; J96.12 Plan Patient is compliant with supplemental oxygen therapy. Stressed to the patient the importance of keeping saturation 90-94% at all times. Patient excessive oxygen can lead to CO2 retention and decreased mentation. Also stressed to the patient that taking off her oxygen to facilitate smoking can lead to desaturation and falls. Patient voiced understanding. Continue supplemental oxygen therapy. 4. Tobacco dependency F17.200 Plan Discussed with patient for 11 minutes on the importance of complete smoking cessation. Patient states that she is reached a level of frustration secondary to repeated failures. Stressed to the patient that support can be offered when she is ready to make this step. Patient understands that this could lead to improvement ciliary clearance. Continue to encourage smoking cessation HPI 3 M FU: Chief Complaint: Shortness of breath on exertion Details: Patient is an 81-year-old female, currently under the care of Dr. Dawson, who presents for evaluation secondary to shortness of breath on exertion. Since last visit, patient denies any ER visits, hospitalizations or prednisone burst. Patient has been compliant with Tudorza and Symbicort therapy. Patient denies any complications such as thrush, hoarseness or sore throat. Patient has noted some increased nasal congestion and increased volume of production with decrease in weather. Patient attributes this to postnasal drip and states that she has attempted using a nasal steroid with minimal effect. Patient continues to smoke approximately 1 pack per day. Patient states she does remove her oxygen to facilitate her smoking. Patient denies any cyanosis associated with these events. Patient states that otherwise she wears her oxygen [id number] without complication. Patient states she does routinely check her saturations and they are above 94% at all times. Patient continues to have a cough on a daily basis. Increased volume at this time, but not associated with increased shortness of breath or increased frequency. Patient denies any associated fever, chills, nausea or vomiting. Intake Vital Signs06/08/17 Height 5 ft 2 in [...] 3.125 mg PO BID 07/06/15 [History Confirmed 06/08/17] Furosemide [Lasix] 40 mg [...] mg PO TID 07/06/15 [History Confirmed 06/08/17] Aclidinium Bath [Tudorza Pressair] 1 puff IH BID 08/23/15 [History Confirmed 06/08/17] Aspirin [Aspirin, Baby] 81 mg PO DAILY@0800 08/23/15 [History Confirmed 06/08/17] Oxygen, Home [Home Oxygen] 3 lpm NASAL CONT 12/01/15 [History Confirmed 06/08/17] Amlodipine [Norvasc] 2.5 mg PO DAILY #30 tab 12/04/15 [Rx Confirmed 06/08/17] Ascorbic Acid [Vitamin C] 500 mg PO BID #60 tab 12/04/15 [Rx Confirmed 06/08/17] Iron Polysaccharide Complex [Ferrex 150] 150 mg PO BID #60 cap 12/04/15 [Rx Confirmed 06/08/17] Nicotine [Nicoderm Cq] 21 mg TRANSDERM. DAILY #28 patch 12/04/15 [Rx Confirmed 06/08/17] Ferrex 150 1 tab PO TID 07/20/16 [History Confirmed 06/08/17] D3-2000 2,000 tab PO DAILY 12/30/16 [History Confirmed 06/08/17] azithromycin 250 mg tablet 250 mg PO QDAY #6 tab 04/09/17 [Rx Confirmed 06/08/17] guaifenesin 400 mg tablet 400 mg PO Q4H PRN #30 tab 04/09/17 [Rx Confirmed 06/08/17] budesonide-formoterol HFA 160 mcg-4.5 mcg/actuation aerosol inhaler 2 puff INHALATION BID #10.2 g 05/26/17 [Rx Confirmed 06/08/17] [facility] Medical History Long-term use of high-risk medication (Chronic) 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) PND (post-nasal drip) (Chronic) Chronic obstructive pulmonary disease (Chronic) Coronary atherosclerosis of [place] coronary artery (Chronic) HLD (hyperlipidemia) (Chronic) HTN (hypertension) (Chronic) Personal history of transient ischemic attack (TIA) 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 (Chronic) CAD (coronary artery disease) (Chronic) Hypokalemia (Acute) Metabolic alkalosis with respiratory acidosis (Chronic) On home O2 (Chronic) History of MT (myocardial infarction) (Chronic) Acute blood loss anemia [...] (Acute) Neuropathy (Acute) Osteopenia (Acute) Pneumonia (Acute) Stroke (Acute) Vision disturbance [...] chills, fever(s), night sweats, oral thrush, stops breathing during sleep, weight loss, sleeping in chair, weight loss, weight gain, frequent colds, seasonal allergies, other, headache(s) or orthopnea [facility] Ear Nose Throat Mouth: Positive dry mouth in morning, itchy eyes, swallowing Difficulty, nasal congestion and [...] thick, clear and yellow; negative shortness of breath, pain with cough, wheezing, chest congestion, chest tightness, pain on inspiration, inhalers, increase use of rescue inhalers, snoring, apnea or other Gastro Gastrointestional: Negative bloody stools, change in appetite, difficulty swallowing, reflux, hematemesis, melena stool, loose stool, constipation or other Genitourinary: Positive nocturia; negative blood in urine, pain with urination or other Musc Musculoskeletal: Positive body pain and back [...] good hygiene, smells of smoke, appears older than stated age, dyspenic, thin and wearing supplemental [...] oral mucosae normal, no lesions and posterior oropharynx is adequate; negative post nasal drip or [...] sounds; negative distended, ascites or epigastric tenderness Genitourinary: Positive deferred Musc Musculoskeletal: Positive steady gait, kyphosis and in a wheelchair; negative scoliosis Skin Pulmonary Skin Exam: Positive intact; negative rash, lesion, ulcers or erythema Pulses Pulse: Yes radial pulses present Extremities Extremities: Yes clubbing, No capillary refill normal, Yes cyanosis (Transiently in fingers, but improved through examination), No edema Neuro Neurologic: Yes conversant, Yes no focal neuro deficits, Yes cooperative, Yes normal cognition, Yes normal coordination, Yes normal concentration, Yes understands questions Lymph Lymphatic: No lymphadenopathy Psych Appearance: Positive [...] J96.11; J96.12 Tobacco dependency F17.200 06/08/17 1349 <Electronically signed by Sincere Lauren MD> Date Sincere Lauren MD Cosigner Signature: Date (if applicable) CC: Priya Jimenez DO BASIC METABOLIC Collected: 05/19/2017 Status: F Source: [place] PROFILE (BMP) 11:20 AM [facility] REPOSITORY TYPE CODE TESTS RESULT OUT OF RANGE REFERENCE UNITS LAB L501.0100 70-110 mg/dL Normal GLU 103 LAB L501.1000 7-18 mg/dL High BUN 23 LAB L501.1100 0.55-1.02 mg/dL Normal 0.65 CREAT,SERUM Result Comment: The validity of the calculated GFR AND GFRAA in patients over 70 years has not been determined. Clinical correlation is essential. LAB L501.1110 >60 mL/min Normal EST GFR 94 Result Comment: Non- GFR Calc LAB L501.1115 >60 mL/min Normal EST GFR - AA 113 Result Comment: GFR Calc LAB L501.1300 10-20 RATIO High BUN/CRE 35.5 LAB L501.2200 8.5-10.1 mg/dL CA Normal 9.4 LAB L501.5300 136-145 mmol/L NA Normal 137 LAB L501.5600 3.5-5.1 mmol/L K Normal 3.9 LAB L501.5900 98-107 mmol/L Low CL 90 LAB L501.6100 21.0-32.0 mmol/L High alert CO2 > 45.0 Result Comment: Critical Result(s) Called at: 13:32:41 05/19/2017 by: Julia Lord to Shaunna LAB L501.6200 5-15 Normal Test not performed GAP Performed By: #### L500.2500 #### [facility] [address] [place], [place] [address], [address] ALLERGIES ALLERGIES DATE TYPE / NAME / CODE REACTION SEVERITY SOURCE CODE 04/22/2018 Drug sulfamethoxazole/ thrush [place] Allergy/41 [id number](RXNORM Community 0396024([facility]) Repository 04/22/2018 Drug trimethoprim/F006 thrush SV [place] Allergy/41 352647(RXNORM) [facility] 6386881([facility]) Repository 04/22/2018 Drug alendronate gastroenteritis [place] Allergy/41 sodium/[id number] [facility] 7396854( (RXNORM) [facility]) Repository 09/24/2008 DRUG NAPROXEN INTOLERANCE [place] INGREDI/41 Clinic Main 4070754([facility] OMED CT) Repository 03/02/2007 [facility]ON[facility] Main 7821755([facility] OMED CT) Repository 11/11/2005 DRUG/83230 SULFAMETHOXAZOLE- RASH High [place] 1003(SNOME TRIMETHOPRIM Clinic Main D CT) [place] Repository ENCOUNTERS ENCOUNTERS ADMIT/DISCHARGE ACCOUNT ADMITTING ENCOUNTER LOCATION SOURCE NUMBER CLASS 05/09/2018 [id number] Ambulatory Building:[facility] [place] [facility]ices Repository 04/22/2018/04/22/20 [id number] Ambulatory BMSBuilding:B [place] 18 [place].[facility] Repository 04/16/2018 [id number] Ambulatory BMSBuilding:[facility] Repository 04/15/2018 [id number] Ambulatory [facility] Hospital ing:PSN Repository 04/13/2018 [id number] Ambulatory BMSBuilding:B [place] MS.[facility] Repository 04/13/2018 [id number] Ambulatory [facility] Hospital ing:OMD Repository 04/06/2018 [id number] Ambulatory [facility] Hospital ing:LABSPEC Repository 03/30/2018/03/30/20 [id number] Ambulatory [address] Repository 03/15/2018 [id number] Ambulatory [facility] Hospital ing:OPBD Repository 03/11/2018/03/14/20 [id number] Ambulatory [address] Repository 02/01/2018/02/02/20 [id number] Ambulatory BMSBuilding:B [place] 18 MS.[facility] Hospital Repository 01/14/2018/01/15/20 [id number] Ambulatory BMSBuilding:B [place] 18 MS.[facility] Repository 01/12/2018 [id number] Ambulatory BMSBuilding:B [place] MS.CF.[facility] Repository 01/12/2018 [id number] Ambulatory BMSBuilding:W [facility] Repository 01/11/2018 [id number] Ambulatory [facility] Hospital ing:PSN Repository 01/03/2018 [id number] Ambulatory [facility] Hospital ing:LABSPEC Repository 11/18/2017/11/23/19 [id number] Ambulatory [address] Repository 11/11/2017/11/12/19 [id number] Ambulatory BMSBuilding:B Ch[place] 18 MS.[facility] Repository 10/25/2017 [id number] Ambulatory [facility] Hospital ing:LAB Repository 10/15/2017 [id number] Ambulatory BMSBuilding:B [place] MS.[facility] Repository 10/14/2017 [id number] Ambulatory BMSBuilding:Saturnino Lockhart MS.CF.[facility] Repository 10/06/2017 [id number] Ambulatory [facility] Hospital ing:LABSPEC Repository 09/14/2017 [id number] Ambulatory [facility] Repository 08/09/2017 [id number] Ambulatory [facility] Hospital ing:LABSPEC Repository 07/14/2017/07/15/19 [id number] Ambulatory BMSBuilding:B [place] 18 MS.[facility] Repository 07/07/2017 [id number] Ambulatory BMSBuilding:B [place] MS.[facility] Repository 07/05/2017/07/06/19 [id number] Ambulatory BMSBuilding:B [place] 18 MS.[facility] Repository 07/05/2017 [id number] Ambulatory BMSBuilding:B [place] MS.[facility] Repository 06/08/2017/06/08/19 [id number] Ambulatory BMSBuilding:B [place] 18 MS.[facility] Repository 05/19/2017 [id number] Ambulatory [facility] Hospital ing:LABSPEC Repository FUNCTIONAL STATUS FUNCTIONAL STATUS No Functional Status Records FoundEQUIPMENT EQUIPMENT No Equipment Records FoundPAYERS PAYERS ENCOUNTER GUARANTOR PAYER SUBSCRIBER SOURCE 05/09/2018 Kiley O Primary Kiley O [place] Practices TerryDOB: Insurance:[employer]/ TerryDOB: Repository [id number] [facility] [id number] [place] RdLot Number: 2 [place], [place] [id number] [place] [id number]: 330) Date:9225-50-26[place] [address]Cbb: [phone] (HP) Name:[address] [place] [address] () [id number]: 05/09/2018 Secondary Kiley O OHIP Practices Insurance:Dowell TerryDOB: Repository /[facility] Number: [id number] 2 [place] Date:2005-04-26 - [place]dLot [address], 2392-54-[place] [address]Lqm: Name:[address], [place] () [id number]: 04/22/2018 KILEY O Primary KILEY O [place] [id number] Insurance:MYCARE CRSC TERRYDOB: [facility] *[place] [address] Number: Repository [address]Njq: 330 [id number] [phone] () Date:6426-20-57FPUC CLAIMS DEPO [address] [address]MH: 04/22/2018 Secondary NOT GIVENUNK [place] Insurance:SELF PAY [facility] Number: Effective Repository Date:2018-02-22 04/16/2018 KILEY O Primary KILEY O [place] [id number] Insurance:MYCARE CRSC TERRYDOB: [facility] BOWIE RDLOT *IN [address] Number: Repository [address]Smq: 330 [id number] [phone] () Date:1426-68-94TSHX CLAIMS DEPTPO [address] [address]NL: 04/16/2018 Secondary NOT GIVENUNK [place] Insurance:SELF PAY [facility] Number: Effective Repository Date:2018-04-16 04/15/2018 KILEY O Primary KILEY O [place] [id number] Insurance:MYCARE CRSC TERRYDOB: Community BOWIE RDLOT *IN [address] Number: Repository [address]Yax: 330 [id number] [phone] (HP) Date:4043-60-52DZQV CLAIMS [address] [address]YD: 04/15/2018 Secondary NOT GIVENUNK [place] Insurance:SELF PAY [facility] Number: Effective Repository Date:2017-11-11 04/13/2018 KILEY O Primary KILEY O [place] [id number] Insurance:MYCARE CRSC TERRYDOB: Community BOWIE RDLOT *IN [address] Number: Repository [id number]: 330 [id number] [phone] (HP) Date:2339-20-79Kfjk Claims [address] [address]MH: 04/13/2018 Secondary NOT GIVENUNK [place] Insurance:SELF PAY [facility] Number: Effective Repository Date:2018-04-13 04/13/2018 KILEY O Primary KILEY O [place] [id number] Insurance:MYCARE CRSC TERRYDOB: Community BOWIE RDLOT *IN [address] Number: Repository [address]Qnk: 330 [id number] [phone] (HP) Date:2596-21-74Xelz Claims [address] [address]EP: 04/13/2018 Secondary NOT GIVENUNK [place] Insurance:SELF PAY [facility] Number: Effective Repository Date:2016-09-22 04/06/2018 KILEY O Primary KILEY O [place] [id number] Insurance:MYCARE CRSC TERRYDOB: Community BOWIE RDLOT *IN [address] Number: Repository [address]Ybx: 330 [id number] [phone] (HP) Date:2767-17-22VXGP CLAIMS [address] [address]YC: 04/06/2018 Secondary NOT GIVENUNK [place] Insurance:SELF PAY [facility] Number: Effective Repository Date:2018-04-06 03/15/2018 KILEY O Primary KILEY O [place] [id number] Insurance:MYCARE CRSC TERRYDOB: Community BOWIE RDLOT *IN [place] [id number] Number: Repository [address]Ypv: 330 [id number] [phone] () Date:1334-04-86ERHA CLAIMS [address] [place] [address]EC: 03/15/2018 Secondary NOT GIVENUNK [place] Insurance:SELF PAY [facility] Number: Effective Repository Date:2018-02-10 02/01/2018 KILEY O Primary KILEY O [place] [id number] Insurance:MYCARE CRSC TERRYDOB: Community BOWIE RDLOT *IN [address] Number: Repository [address]Yxv: 330 [id number] [phone] () Date:8306-37-56IXUL CLAIMS [address] [place] [address]ZI: 02/01/2018 Secondary NOT GIVENUNK [place] Insurance:SELF PAY [facility] Number: Effective Repository Date:2018-02-01 01/14/2018 KILEY O Primary KILEY O [place] [id number] Insurance:MYCARE CRSC TERRYDOB: Community BOWIE RDLOT *[place] [address] Number: Repository [address]Atd: 330 [id number] [phone] () Date:5307-32-62QLJU CLAIMS [address] [address]GM: 01/14/2018 Secondary NOT GIVENUNK [place] Insurance:SELF PAY [facility] Number: Effective Repository Date:2018-01-07 01/12/2018 KILEY O Primary KILEY O [place] [id number] Insurance:MYCARE CRSC TERRYDOB: Community BOWIE RDLOT *IN [facility] [id number], [place] Number: Repository [address]Heu: 330 [id number] [phone] (HP) Date:4178-27-44Juid Claims [address]Dayjfk [facility] [address]TB: 01/12/2018 Secondary NOT GIVENUNK [place] Insurance:SELF PAY [facility] Number: Effective Repository Date:2018-01-12 01/12/2018 KILEY O Primary KILEY O [place] [id number] Insurance:MYCARE CRSC TERRYDOB: Community BOWIE RDLOT *[place] [address], [place] Number: Repository [id number]: 330 [id number] [phone] (HP) Date:1197-66-53XMHO CLAIMS [address] [address]GR: 01/12/2018 Secondary NOT GIVENUNK [place] Insurance:SELF PAY [facility] Number: Effective Repository Date:2018-01-12 01/11/2018 KILEY O Primary KILEY O [place] [id number] Insurance:MYCARE CRSC TERRYDOB: Community BOWIE RDLOT *[place] [address] [place] Number: Repository [address]Wvf: 330 [id number] [phone] (HP) Date:5175-70-21UEOH CLAIMS [address] [address]LO: 01/11/2018 Secondary NOT GIVENUNK [place] Insurance:SELF PAY [facility] Number: Effective Repository Date:2017-12-23 01/03/2018 KILEY O Primary KILEY O [place] [id number] Insurance:MYCARE CRSC TERRYDOB: Community BOWIE R[place]OT *[place] [address], [place] Number: Repository [address]Nrb: 330 [id number] [phone] (HP) Date:5882-06-49GEHJ CLAIMS [address] [address]DZ: 01/03/2018 Secondary NOT GIVENUNK [place] Insurance:SELF PAY [facility] Number: Effective Repository Date:2018-01-03 11/11/2017 KILEY O Primary KILEY O Ch[place] [id number] Insurance:MYCARE CRSC TERRYDOB: Community BOWIE R[place]OT *[place] [address] Number: Repository [address]Zih: 330 [id number] [phone] (HP) Date:6842-93-49KNOB CLAIMS [address] [address]KO: 11/11/2017 Secondary KILEY O [place] Insurance:MEDICAIDPol TERRYDOB: [facility] Number: [id number] [place] [address] [id number] Repository Date:2017-07-14 11/11/2017 Tertiary NOT GIVENUNK [place] Insurance:SELF PAY [facility] Number: Effective Repository Date:2017-11-04 10/25/2017 KILEY O Primary KILEY O [place] [id number] Insurance:MYCARE CRSC TERRYDOB: Community BOWIE [place] *IN [address] Number: Repository [address]Moa: 330 [id number] [phone] (HP) Date:0207-01-24VAXA CLAIMS [address] [address]NQ: 10/25/2017 Secondary NOT GIVENUNK [place] Insurance:SELF PAY [facility] Number: Effective Repository Date:2017-10-25 10/15/2017 KILEY O Primary KILEY O [place] [id number] Insurance:MYCARE CRSC TERRYDOB: Community BOWIE R[place]OT *IN [address] Number: Repository [address]Esm: 330 [id number] [phone] (HP) Date:2443-53-39KTVV CLAIMS [address] [address]IV: 10/15/2017 Secondary NOT GIVENUNK [place] Insurance:SELF PAY [facility] Number: Effective Repository Date:2017-10-13 10/14/2017 KILEY O Primary KILEY O [place] [id number] Insurance:MYCARE CRSC TERRYDOB: Community BOWIE R[place]OT *IN [address] Number: Repository [address]Jze: 330 [id number] [phone] () Date:7383-74-68Ygbq Claims [address] [address]PK: 10/14/2017 Secondary NOT GIVENUNK [place] Insurance:SELF PAY [facility] Number: Effective Repository Date:2017-10-14 10/06/2017 KILEY O Primary KILEY O [place] [id number] Insurance:MYCARE CRSC TERRYDOB: [facility] BOWIE RDLOT *IN [facility] [id number] Number: Repository [address]Jnh: 330 [id number] [phone] () Date:0780-63-43NFWU CLAIMS [address] [address]BO: 10/06/2017 Secondary NOT GIVENUNK [place] Insurance:SELF PAY [facility] Number: Effective Repository Date:2017-10-06 09/14/2017 KILEY TERRYDOB: Primary KILEY TERRYDOB: [place] [id number] Insurance:[facility] [id number] [place] [address] [place], [place] Number: [facility], [address]Qtx: [id number] [address]Wrh: [phone] () Date:Plan Name:Health () 09/14/2017 Secondary KILEY TERRYDOB: [place] Insurance:[facility] [id number] [place] [address] [place], Number: [place] [address]Fwq: [id number] Date:Plan Name:Health () 08/09/2017 KILEY O Primary KILEY O [place] [id number] Insurance:MYCARE CRSC TERRYDOB: Community BOWIE RDLOT *IN [address] Number: Repository [address]Fiq: 330 [id number] [phone] () Date:5957-31-29USGI CLAIMS DEPT[address] [address]LD: 08/09/2017 Secondary NOT GIVENUNK [place] Insurance:SELF PAY [facility] Number: Effective Repository Date:2017-08-09 07/14/2017 KILEY O Primary KILEY O [place] [id number] Insurance:MYCARE CRSC TERRYDOB: Community BOWIE R[place]OT *IN [address] Number: Repository [address]Ghd: 330 [id number] [phone] () Date:4266-57-30ILQR CLAIMS [address] [address]DG: 07/14/2017 Secondary NOT GIVENUNK [place] Insurance:SELF PAY [facility] Number: Effective Repository Date:2017-07-14 07/07/2017 KILEY O Primary KILEY O [place] [id number] Insurance:MYCARE CRSC TERRYDOB: Community BOWIE RDLOT *IN [address] Number: Repository [address]Vxi: 330 [id number] [phone] () Date:6379-07-51Kigz Claims [address], [place] [address]JD: 07/07/2017 Secondary NOT GIVENUNK [place] Insurance:SELF PAY [facility] Number: Effective Repository Date:2017-07-07 07/05/2017 KILEY O Primary KILEY O [place] [id number] Insurance:MYCARE CRSC TERRYDOB: Community BOWIE R[place]OT *[place] [address] [place] Number: Repository [address]Hat: 330 [id number] [phone] (HP) Date:4391-93-55RAJV CLAIMS [address] [address]EI: 07/05/2017 Secondary NOT GIVENUNK [place] Insurance:SELF PAY [facility] Number: Effective Repository Date:2017-04-02 07/05/2017 KILEY O Primary KILEY O [place] [id number] Insurance:MYCARE CRSC TERRYDOB: Community BOWIE RDLOT *IN [facility] [id number] [place] Number: Repository [address]Wgv: 330 [id number] [phone] (HP) Date:4810-11-13IORI CLAIMS [address] [address]WG: 07/05/2017 Secondary NOT GIVENUNK Chantelle Insurance:SELF PAY [facility] Number: Effective Repository Date:2017-07-05 06/08/2017 KILEY O Primary KILEY O [place] [id number] Insurance:MYCARE CRSC TERRYDOB: Community BOWIE RDLOT *IN [facility] [id number] Number: Repository [address]Wgm: 330 [id number] [phone] (HP) Date:3147-73-24ANCG CLAIMS [address] [address]JJ: 06/08/2017 Secondary NOT GIVENUNK [place] Insurance:SELF PAY [facility] Number: Effective Repository Date:2017-04-05 05/19/2017 Kiley O Primary Kiley O Chantelle [id number] Insurance:MYCARE CRSC TerryDOB: Community [place] RdLot *IN [address] Number: Repository [address]Vih: 330 [id number] [phone] (HP) Date:6056-29-72Pahe Claims [address] [address]YO: 05/19/2017 Secondary NOT GIVENUNK [place] Insurance:SELF PAY [facility] Number: Effective Repository Date:2017-05-19 SOCIAL HISTORY SOCIAL HISTORY No Social History Records FoundFAMILY HISTORY FAMILY HISTORY No Family History Records FoundADVANCE DIRECTIVES ADVANCE DIRECTIVES No Advanced Directives Records FoundINFORMATION SOURCE INFORMATION SOURCE DATE CREATED AUTHOR AUTHOR'S ORGANIZATION 05/18/2018 [facility]
== END ==
PROVIDERS: Family Provider Internal Medicine; PCP Internal Medicine Medical Oncology
DX: M32.8 Other forms of systemic lupus erythematosus (principal); D50.9 Iron deficiency anemia, unspecified
CPT/HCPCS: 80053; 85025; 85652; 86140; 86160; 86225

== ENCOUNTER → 2018-04-15 12:56 | Outpatient (CLI) | payer MEDICARE, SELFPAY ==
[2018-04-13 14:14] VITALS: BMI 22.6
--- NOTE | 2018-04-15 13:43 | CPS ---
Patient unable to do DLCO. Patient was SOB and unable to keep O2 off in between DLCO testing.
--- NOTE | 2018-04-16 07:44 | PFT_ITS ---
INTRODUCTION: The patient is an 82-year-old female that presents for pulmonary function testing secondary to a diagnosis of COPD. Respiratory therapy reports that the patient was unable to do DLCO maneuvers because she was unable to keep oxygen off in between testing. Bronchodilators were used during testing. INTERPRETATION: Forced expiration spirometry demonstrates the presence of a severe large airways obstructive ventilatory defect. There was no significant response to aerosolized bronchodilators. Spirograms are of good quality and do not plateau indicating slow emptying of the lungs. Body plethysmography was performed and reveals an elevated TLC and RV, indicative of underlying hyperinflation and air- trapping. Diffusing capacity was unable to be estimated. When compared to previous pulmonary function studies dated January 2015 there has been an 18% reduction in FEV1, along with worsening hyperinflation and air-trapping. 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 Diffusing capacity was unable to be estimated. There appears to be worsening in the patient's pulmonary function studies since they were last completed in 2014, as noted above.
== END ==
PROVIDERS: Family Provider Internal Medicine; PCP Internal Medicine Medical Oncology; Referring Provider Internal Medicine Critical Care Medicine; Visit Provider Internal Medicine Critical Care Medicine
DX: J44.9 Chronic obstructive pulmonary disease, unspecified (principal)
CPT/HCPCS: 94060; 94726

== ENCOUNTER → 2018-06-27 18:03 | Outpatient (CLI) | payer MEDICARE, SELFPAY ==
[2018-04-22 12:35] VITALS: BMI 21.9
[2018-06-27 18:19] LABS: Absolute Neutrophil Count 5.7 X10^3/uL (2.0-7.7); Basophil# 0.04 X10^3/uL; Basophil% 0.5 % (0-1); Eosinophil# 0.09 X10^3/uL; Eosinophils% 1.1 % (0-5); Hematocrit 41.5 % (37-47); Hemoglobin 12.1 g/dl (12.0-15.0); Lymphocyte % 14.5 % (19-41); Mean Corp Hgb Conc 29.2 g/gl (32-36); Mean Corpuscular Hgb 28.3 pg (27.0-32.0); Mean Corpuscular Volume 97.2 fL (81-99); Mean Platelet Vol. 10.4 fl (6.2-12.0); Monocyte# 1.18 X10^3/uL; Monocyte% 14.3 % (0-10); Neutrophil # 5.72 X10^3/uL (2.7-7.7); Neutrophil % 69.2 % (47-70); POSITIVE COUNT NO; POSITIVE DIFFERENTIAL NO; POSITIVE MORPHOLOGY NO; Platelet Count 276 K/mm3 (150-450); RBC Distribution Width CV 12.7 % (11.6-14.6); RBC Distribution Width SD 45.2 fl (35.1-43.9); Red Blood Count 4.27 M/mm3 (4.2-5.4); White Blood Count 8.3 K/mm3 (4.4-11.0)
[2018-06-27 18:37] LABS: ALB/GLOB Ratio 0.8 RATIO (0.9-2.4); AST(SGOT) 29 U/L (15-37); Alanine Aminotransfer ALT/SGPT 28 U/L (13-56); Alkaline Phosphatase 99 U/L (45-117); Anion Gap 3 (5-15); BUN 12 mg/dL (7-18); BUN/Creat Ratio 20.7 RATIO (10-20); Chloride 89 mmol/L (98-107); Creatinine, Serum 0.58 mg/dL (0.55-1.02); EST Glomerular Filtration Rate 106 mL/min (>60); Est Glom Filt Rate - Afr Amer 128 mL/min (>60); Glucose 86 mg/dL (74-106); Sodium Level 136 mmol/L (136-145)
== END ==
PROVIDERS: Family Provider Internal Medicine; PCP Internal Medicine; Referring Provider Internal Medicine Medical Oncology; Visit Provider Internal Medicine Medical Oncology
DX: D46.9 Myelodysplastic syndrome, unspecified (principal)
CPT/HCPCS: 80053; 85025

== ENCOUNTER → 2018-07-15 09:32 | Outpatient (CLI) | payer MEDICARE, SELFPAY ==
[2018-07-13 13:37] VITALS: BMI 21.7
[2018-07-15 10:04] LABS: BUN 17 mg/dL (7-18); Calcium,Total 8.8 mg/dL (8.5-10.1); Carbon Dioxide > 45.0 mmol/L (21.0-32.0); Chloride 92 mmol/L (98-107); Creatinine, Serum 0.71 mg/dL (0.55-1.02); EST Glomerular Filtration Rate 84 mL/min (>60); Est Glom Filt Rate - Afr Amer 102 mL/min (>60); Glucose 99 mg/dL (74-106); Potassium 3.5 mmol/L (3.5-5.1); Sodium Level 141 mmol/L (136-145)
== END ==
PROVIDERS: Family Provider Internal Medicine; PCP Internal Medicine; Referring Provider Internal Medicine Cardiovascular Disease; Visit Provider Internal Medicine Cardiovascular Disease
DX: I10 Essential (primary) hypertension (principal)
CPT/HCPCS: 80048

== ENCOUNTER → 2018-07-20 13:50 | Outpatient (CLI) | payer MEDICARE, SELFPAY ==
[2018-06-30 15:15] VITALS: BMI 21.7
[2018-07-13 13:37] VITALS: BMI 21.7
--- NOTE | 2018-07-20 13:53 | ECHOCS_ITS ---
Reason For Study: Dyspnea/SOB Procedure This was a 2D Doppler, Color Flow transthoracic echocardiogram. Contrast injection was performed. Exam performed in department. Left Ventricle Normal LV size. The estimated ejection fraction is 50 %. Stage 2 diastolic dysfunction. Mild segmental systolic dysfunction (see wall motion). Infero-Basal: Akinetic. Basal inferoseptal: Akinetic. The rest of the wall segments are normal. Right Ventricle Normal RV size. Normal systolic function. Atria Normal left atrium. Normal right atrium. Mitral Valve Bileaflet diffuse mitral valve thickening. Mild (1+) eccentric mitral valve insufficiency. Tricuspid Valve Normal tricuspid valve. Mild (1+) tricuspid valve insufficiency. Pulmonary artery systolic pressure is 38 mmHg. Aortic Valve Trisinus/trileaflet aortic valve. Mild diffuse aortic valve thickening. Pulmonic Valve Normal pulmonic valve. Great Vessels Calcified aortic root. The pulmonary artery is normal size. Inferior vena cava collapse with respiration. Pericardium/Pleural No pericardial effusion. Medication Definity0.7ml given slow IV push to enhance endocardial definition. MMode/2D Measurements & Calculations LVIDd: 6.6 cm IVSd: 1.0 cm Ao root diam: 3.4 cm LVIDs: 5.1 cm LVPWd: 1.1 cm RVDd: 3.8 cm FS: 22.8 % LAV(MOD-bp): 72.4 ml LVAd ap4: 33.5 cm2 SV(MOD-sp4): 49.3 ml LAV(MOD-bp) Indexed: 48.7 ml/m2 EDV(MOD-sp4): 112.6 ml LAV(MOD-sp2): 90.1 ml EDV(sp4-el): 117.8 ml LAV(MOD-sp4): 58.1 ml LVAs ap4: 23.3 cm2 ESV(MOD-sp4): 63.3 ml ESV(sp4-el): 64.6 ml EF(MOD-sp4): 43.8 % EF(sp4-el): 45.2 % SV(sp4-el): 53.2 ml LA A4 area: 20.3 cm2 LA dimension(2D): 3.9 cm RA A4 area: 13.6 cm2 Doppler Measurements & Calculations MV E max lester: 60.8 cm/sec Lat Peak E' Lester: 3.0 cm/sec Med Peak E' Lester: 3.0 cm/sec MV A max lester: 93.2 cm/sec E/E' lat: 20.5 E/E' med: 20.0 MV E/A: 0.65 Ao V2 max: 182.5 cm/sec AI max lester: 423.5 cm/sec LV V1 max: 102.3 cm/sec Ao max P.3 mmHg AI max P.8 mmHg LV V1 max P.2 mmHg Ao V2 mean: 121.8 cm/sec Ao mean P.6 mmHg AI dec slope: 174.7 cm/sec2 Ao V2 VTI: 38.5 cm AI P1/2t: 710.0 msec PA V2 max: 111.7 cm/sec TR max lester: 291.3 cm/sec TR max P.0 mmHg Interpretation Summary Normal LV size. The estimated ejection fraction is 50 %. Stage 2 diastolic dysfunction. Mild segmental systolic dysfunction (see wall motion). Mild (1+) tricuspid valve insufficiency. Ordering Physician: Lianne Tovar Referring Physician: Priya Jimenez Performed By: Jamaica Chan, SURY, RVT
== END ==
PROVIDERS: Family Provider Internal Medicine; PCP Internal Medicine; Referring Provider Physician Assistant Medical; Visit Provider Physician Assistant Medical
DX: I50.20 Unspecified systolic (congestive) heart failure (principal); R06.02 Shortness of breath
CPT/HCPCS: 93306; Q9957; A4216; C8929

== ENCOUNTER → 2018-08-19 | Outpatient (CLI) | payer MEDICARE, SELFPAY ==
[2018-08-18 14:13] VITALS: BMI 20.2
[2018-08-19 12:16] LABS: BUN 26 mg/dL (7-18); BUN/Creat Ratio 38.1 RATIO (10-20); Calcium,Total 9.7 mg/dL (8.5-10.1); Carbon Dioxide > 45.0 mmol/L (21.0-32.0); Chloride 87 mmol/L (98-107); Creatinine, Serum 0.68 mg/dL (0.55-1.02); EST Glomerular Filtration Rate 88 mL/min (>60); Est Glom Filt Rate - Afr Amer 106 mL/min (>60); Glucose 96 mg/dL (74-106); Magnesium 1.8 mg/dL (1.6-2.6); Potassium 3.5 mmol/L (3.5-5.1); Sodium Level 136 mmol/L (136-145)
== END | disposition home or self-care (01) ==
LOC: LABSPEC 11:35
PROVIDERS: Family Provider Internal Medicine; PCP Internal Medicine; Referring Provider Internal Medicine Cardiovascular Disease; Visit Provider Internal Medicine Cardiovascular Disease
DX: I11.0 Hypertensive heart disease with heart failure (principal); I50.20 Unspecified systolic (congestive) heart failure; I25.10 Atherosclerotic heart disease of native coronary artery without angina pectoris; R00.2 Palpitations
CPT/HCPCS: 80048; 83735

== ENCOUNTER → 2018-09-09 | Outpatient (CLI) | payer MEDICARE, SELFPAY ==
[2018-08-18 14:13] VITALS: BMI 20.2
--- NOTE | 2018-09-09 13:25 | CT_ITS ---
We are attempting to reach an attending provider to discuss findings. An addendum with communication details will be sent when the communication is complete. STUDY: CT CHEST WITHOUT CONTRAST REASON FOR EXAM: Female, 82 years old. COPD , History of weight loss, low to history of [place] RADIATION DOSAGE (If Supplied By Facility): CTDIvol = ( 7.11 ) mGy, DLP = ( 285.99 ) mGycm TECHNIQUE: Transaxial imaging was performed without the administration of intravenous contrast material. Individualized dose optimization techniques were used for this CT. COMPARISON: Limited comparison lung bases from a CT scan abdomen December 01, 2015 FINDINGS: There is a linear focus of scarring in the right apex. There is a subtle focus of groundglass opacity in the right middle lobe image #41. There is a focus of small emphysematous focus versus cavitary lesion right lower lobe measuring 0.8 x 0.7 cm. There is a focal spiculated nodule in the right lung base new since prior study that measures 1.1 x 0.9 cm in transverse dimension. There is a solid suspicious spiculated mass in the left lower lobe superior segment measuring 2.7 x 1.6 x 1.5 cm. There is an overall pattern of emphysematous change with increased AP diameter of the chest. There is no demonstrated pleural abnormality. There is mild cardiac enlargement. Normal mediastinum. Normal hilar regions. Normal unenhanced pulmonary arteries. The ascending thoracic aorta measures 4.0 x 4.0 cm. It is partially calcified. The descending thoracic aorta measures 2.4 x 2.7 cm. The bones are osteopenic. There is multilevel loss of height which appears to be chronic. There are several levels of smaller lymph nodes. In particular there is loss of height of at least 50% at the level of T11 which does not appear to be acute. There is moderate stool within the visualized colon. The liver appears somewhat hyperdense suggesting possible history of amiodarone therapy. Suprarenal aorta measures 2.8 x 2.8 cm. The aorta is tortuous within the abdomen. The gallbladder is been surgically removed. CT/Chest without Contrast IMPRESSION: The superior segment of the left lower lobe measuring 2.7 x 1.6 x 1.5 cm highly suspicious for cancer. There is a spiculated solid nodule within the right lower lobe associated with a small cavitary lesion which may represent post infectious or possible neoplastic change. Given that there may be 2 suspicious nodules in the lungs consider the possibility of primary neoplasm in the left lung with metastatic disease and/or a metastatic process from another primary source. Recommend consideration for PET scan and consideration for plan for biopsy when appropriate.. This is superimposed on emphysematous appearance of the lungs. Electronically Signed: Vidya Nayak MD at 14:33 EDT Tel , Service support ,
== END | disposition home or self-care (01) ==
LOC: CT 13:23
PROVIDERS: Family Provider Internal Medicine; PCP Internal Medicine; Referring Provider Internal Medicine Critical Care Medicine; Visit Provider Internal Medicine Critical Care Medicine
DX: J44.9 Chronic obstructive pulmonary disease, unspecified (principal); D46.9 Myelodysplastic syndrome, unspecified; R63.4 Abnormal weight loss; J96.11 Chronic respiratory failure with hypoxia
CPT/HCPCS: 71250

== ENCOUNTER → 2018-09-27 | Outpatient (CLI) | payer MEDICARE, SELFPAY ==
[2018-09-15 14:23] VITALS: BMI 20.2
[2018-09-27 12:26] LABS: Absolute Lymphocyte Count 1.17 X10^3/ul (0.83-4.51); Absolute Neutrophil Count 8.6 X10^3/uL (2.0-7.7); Basophil# 0.04 X10^3/uL; Basophil% 0.4 % (0-1); Eosinophil# 0.26 X10^3/uL; Eosinophils% 2.3 % (0-5); Hematocrit 42.8 % (37-47); Hemoglobin 12.8 g/dl (12.0-15.0); Lymphocyte # 1.17 X10^3/ul (4.0); Lymphocyte % 10.4 % (19-41); Mean Corp Hgb Conc 29.9 g/gl (32-36); Mean Corpuscular Volume 96.8 fL (81-99); Mean Platelet Vol. 10.9 fl (6.2-12.0); Monocyte# 1.17 X10^3/uL; Monocyte% 10.4 % (0-10); Neutrophil # 8.57 X10^3/uL (2.7-7.7); Neutrophil % 76.4 % (47-70); POSITIVE COUNT NO; POSITIVE DIFFERENTIAL NO; POSITIVE MORPHOLOGY NO; Platelet Count 219 K/mm3 (150-450); RBC Distribution Width CV 13.5 % (11.6-14.6); RBC Distribution Width SD 47.6 fl (35.1-43.9); Red Blood Count 4.42 M/mm3 (4.2-5.4); White Blood Count 11.2 K/mm3 (4.4-11.0)
[2018-09-27 12:44] LABS: ALB/GLOB Ratio 0.8 RATIO (0.9-2.4); AST(SGOT) 62 U/L (15-37); Alanine Aminotransfer ALT/SGPT 101 U/L (13-56); Albumin, Serum 3.3 g/dL (3.2-5.0); Alkaline Phosphatase 202 U/L (45-117); Anion Gap 6 (5-15); BUN 15 mg/dL (7-18); BUN/Creat Ratio 21.2 RATIO (10-20); Calcium,Total 8.8 mg/dL (8.5-10.1); Chloride 85 mmol/L (98-107); Creatinine, Serum 0.71 mg/dL (0.55-1.02); EST Glomerular Filtration Rate 84 mL/min (>60); Est Glom Filt Rate - Afr Amer 102 mL/min (>60); Globulin 3.9 g/dL (2.2-4.2); Glucose 112 mg/dL (74-106); Potassium 3.2 mmol/L (3.5-5.1); Protein, Total 7.2 g/dL (6.4-8.2); Sodium Level 136 mmol/L (136-145)
== END | disposition home or self-care (01) ==
LOC: LABSPEC 11:26
PROVIDERS: Family Provider Internal Medicine; PCP Internal Medicine; Referring Provider Internal Medicine Medical Oncology; Visit Provider Internal Medicine Medical Oncology
DX: D50.9 Iron deficiency anemia, unspecified (principal)
CPT/HCPCS: 80053; 85025